=== PATIENT | female | born 1965 | race American Indian/Alaskan Native ===

== ENCOUNTER 2016-09-13 09:51 | Inpatient (IN) | payer BC, OTHER ==
[2016-09-13 10:15] VITALS: BMI 29.2
[2016-09-13] MEDS ORDERED: Labetalol 5 mg/ml Inj 20ML IV STA ×2 (10:29→11:02)
--- NOTE | 2016-09-13 10:33 | ED PDOC ---
Arrival/HPI - General Chief Complaint: GI Problem Time Seen by Provider: 09/13/16 10:19 Historian: Patient - History of Present Illness Narrative History of Present Illness (Text): 09/13/16 10:32 A 51 year old female, whose past medical history includes hypertension, presents to the emergency department complaining of multiple episodes of non- bilious non-bloody vomiting for one week. Patient notes dyspnea on exertion and blurry vision for few days. Patient reports she started feeling midsternal chest pain on route to emergency room. Patient denies any fever, diarrhea, abdominal pain or any other complaints. Patient reports she has not been compliant with her medication for 1 year. PMD: Dr. Galeana Time/Duration: 1 week Symptom Course: Unchanged Quality: Other Context: Other Past Medical History - Provider Review Nursing Documentation Reviewed: Yes - Infectious Disease Hx of Infectious Diseases: None - Cardiac Hx Hypertension: Yes - HEENT Hx Blind: Yes Hx Cataracts: Yes - Musculoskeletal/Rheumatological Hx Falls: No - Psychiatric Hx Substance Use: Yes - Surgical History Hx Section: Yes Hx Eye Surgery: Yes - Anesthesia Hx Anesthesia Reactions: No Hx Malignant Hyperthermia: No - Suicidal Assessment Feels Threatened In Home Enviroment: No Family/Social History - Physician Review Nursing Documentation Reviewed: Yes Family/Social History: No Known Family HX Smoking Status: Former Smoker Hx Alcohol Use: Yes Hx Substance Use: Yes Hx Substance Use Treatment: No Allergies/Home Meds Allergies/Adverse Reactions: Allergies No Known Allergies Allergy (Verified 12/09/11 17:22) Home Medications: Home Meds Medication Instructions Recorded Confirmed Bisoprolol Fumarate/Hydrochl 1 tab PO DAILY 01/31/12 09/13/16 [Bisoprolol/Hctz 10 mg-6.25 mg] Olmesartan Medoxomil [Benicar] 40 mg PO DAILY 01/31/12 09/13/16 Spironolactone 25 mg PO BID 02/02/12 09/13/16 Review of Systems - Physician Review All systems were reviewed & negative as marked: Yes - Review of Systems Constitutional: absent: Fevers Eyes: Vision Changes (Blurry vision) Respiratory: Other (CARY) Cardiovascular: Chest Pain Gastrointestinal: Vomiting. absent: Abdominal Pain, Diarrhea Physical Exam Vital Signs Reviewed: Yes Vital Signs Temp Pulse Resp BP Pulse Ox 09/13/16 13:33 69 170/92 H 09/13/16 13:05 70 16 154/83 H 98 09/13/16 11:22 57 L 219/140 H 09/13/16 11:13 61 241/128 H 09/13/16 10:55 63 18 241/128 H 99 09/13/16 10:45 63 300/160 H 09/13/16 09:51 98 F 83 18 215/187 H 97 Temperature: Afebrile Blood Pressure: Hypertensive Pulse: Regular Respiratory Rate: Normal Appearance: Positive for: Well-Appearing, Non-Toxic, Comfortable Pain Distress: None Mental Status: Positive for: Alert and Oriented X 3 - Systems Exam Head: Present: Atraumatic, Normocephalic Pupils: Present: PERRL Extroacular Muscles: Present: EOMI Conjunctiva: Present: Normal Mouth: Present: Moist Mucous Membranes Neck: Present: Normal Range of Motion Respiratory/Chest: Present: Clear to Auscultation, Good Air Exchange, Tender to Palpation (Tenderness to chest wall). No: Respiratory Distress, Accessory Muscle Use Cardiovascular: Present: Regular Rate and Rhythm, Normal S1, S2. No: Murmurs Abdomen: Present: Normal Bowel Sounds. No: Tenderness, Distention, Peritoneal Signs Back: Present: Normal Inspection Upper Extremity: Present: Normal Inspection. No: Cyanosis, Edema Lower Extremity: Present: Normal Inspection, NORMAL PULSES. No: Edema, CALF TENDERNESS Neurological: Present: GCS=15, CN II-XII Intact, Speech Normal Skin: Present: Warm, Dry, Normal Color. No: Rashes Psychiatric: Present: Alert, Oriented x 3, Normal Insight, Normal Concentration Medical Decision Making ED Course and Treatment: 09/13/16 10:32 Impression: A 51 year old female with vomiting, CARY, blurry vision and midsternal chest pain. Patient has a history of hypertension and has not been compliant with medication for 1 year Differential Diagnosis included but are not limited to: ACS vs. Hypertensive emergency Plan: -- Head CT -- Chest xray -- EKG -- Labs -- Urinalysis -- Labetalol -- Reassess and disposition Progress Notes: EKG shows NSR at 83 BPM with LVH, no ST-segment elevations. Interpreted by me. Report Date : 09/13/2016 12:28:35 Procedure: Chest xray Dictator : Moreno Tejada MD IMPRESSION: No active disease. Report Date : 09/13/2016 12:45:24 PROCEDURE: CT HEAD WITHOUT CONTRAST. Dictator : Moreno Tejada MD IMPRESSION: Extensive hypodensity in the periventricular white matter, sheyla and cerebellar white matter. Findings could represent vasogenic edema related to hypertension or could represent chronic microvascular disease. Follow-up MRI is recommended 09/13/16 13:00 Patient treated with Labetolol IV x 2 without improvement on BP. Then started on a Cardene drip with good improvement of blood pressure. Patient has a ESTEFANI and elevated troponin. Currently patient does not have any chest pain. Case discussed with Dr. Myers, who agrees and accepts patient admission. Aspirin ordered by admitting team. Consult with heddler tier Dr. Daniel placed by Dr. Myers. Also consult was placed for Dr. Bae Opthamologist and Dr. Mcgarry for ESTEFANI. Patient's PMD Dr. Galeana admits to hospitalist. Hospitalist paged. Case discussed with Dr. Perez, hospitalist, who accepts patient to ICU. - Critical Care Critical Care Minutes: 60 minutes - Lab Interpretations Lab Results: 09/13/16 10:30 09/13/16 10:30 Lab Results 09/13/16 10:30: WBC 12.3 H, RBC 4.15, Hgb 12.5, Hct 34.0 L, MCV 81.9, MCH 30.1, MCHC 36.8, RDW 18.2 H, Plt Count 143, Gran % 83.5 H, Lymph % (Auto) 9.7 L, [place] % (Auto) 6.5 H, Eos % (Auto) 0.1 L, Baso % (Auto) 0.2, Gran # 10.26 H, Lymph # 1.2, [place] # 0.8 H, Eos # 0.0, Baso # 0.02, PT 10.7, INR 0.99, APTT 26.4, Sodium 132, Potassium 2.4 L*, Chloride 86 L, Carbon Dioxide 31, Anion Gap 17, BUN 57 H , Creatinine 3.3 H, Est GFR ( Amer) 18, Est GFR (Non-Af Amer) 15, Random Glucose 130 H, Calcium 9.9, Magnesium 1.9, Total Bilirubin 1.3, AST 36, ALT 18, Alkaline Phosphatase 71, Lactate Dehydrogenase 1517 H, Total Creatine Kinase 106 , Troponin I 0.20 H*, NT-Pro-B Natriuret Pep 91212 H, Total Protein 8.9 H, Albumin 4.5, Globulin 4.3, Albumin/Globulin Ratio 1.0 L I have reviewed the lab results: Yes - RAD Interpretation Radiology Orders: 09/13/16 10:28 CHEST PORTABLE [RAD] Stat 09/13/16 10:29 HEAD W/O CONTRAST [CT] Stat - Medication Orders Current Medication Orders: Amlodipine Besylate (Norvasc) 5 mg PO DAILY ANNA Aspirin (Ecotrin) 81 mg PO DAILY ANNA Nicardipine HCl (Cardene Iv Premix) 200 mls @ 50 mls/hr IV .Q4H PRN; Protocol; 5 MG/HR PRN Reason: TITRATE PER MD ORDER Last Titration: 09/13/16 14:47 Dose: 10 MG/HR Titration Intervention Document 09/13/16 14:47 [id number] (Rec: 09/13/16 14:47 [id number]) Titration Dosing Titration Dose 10 IV Rate 100 Intake/Decrease Increase Potassium Chloride 20 meq/ (Sodium Chloride) 1,010 mls @ 100 mls/hr IV .Q10H6M ANNA Last Admin: 09/13/16 15:18 Dose: 100 MLS/HR eMAR Start Stop Document 09/13/16 15:18 [id number] (Rec: 09/13/16 15:18 [id number]) Intravenous Solution Start Date 09/13/16 Start Time 15:18 Ondansetron HCl (Zofran Inj) 4 mg IVP Q6H PRN PRN Reason: Nausea/Vomiting Pantoprazole Sodium (Protonix Inj) 40 mg IVP DAILY ANNA Discontinued Medications Amlodipine Besylate (Norvasc) 5 mg PO DAILY ANNA Amlodipine Besylate (Norvasc) 5 mg PO .EXTRA DOSE ONE Stop: 09/13/16 12:31 Last Admin: 09/13/16 13:33 Dose: 5 MG MAR Pulse and Blood Pressure Document 09/13/16 13:33 HI (Rec: 09/13/16 13:43 HI [id number]) Pulse Pulse Rate (60-90) 69 Blood Pressure Blood Pressure (100/60-150/90) 170/92 Apraclonidine HCl (Iopidine) Confirm Administered Dose 1 ml .ROUTE .STK-MED ONE Stop: 09/13/16 14:26 Last Admin: 09/13/16 15:13 Dose: Fluorescein Sodium/Benoxinate HCl (Fluress 0.4%-0.25% Opht) Confirm Administered Dose 5 ml .ROUTE .STK-MED ONE Stop: 09/13/16 14:27 Last Admin: 09/13/16 15:12 Dose: Hydroxypropyl Methylcellulose (Gonak 2.5% Opht) Confirm Administered Dose 15 ml .ROUTE .STK-MED ONE Stop: 09/13/16 14:26 Last Admin: 09/13/16 15:13 Dose: Potassium Chloride (Potassium Chloride 10 Meq/100 Ml) 100 mls @ 100 mls/hr IVPB ONCE ONE Stop: 09/13/16 12:36 Last Admin: 09/13/16 13:42 Dose: 100 MLS/HR eMAR Start Stop Document 09/13/16 13:42 HI (Rec: 09/13/16 13:43 HI [id number]) Intravenous Solution Start Date 09/13/16 Start Time 13:33 Labetalol HCl (Trandate) 20 mg IV STAT STA Stop: 09/13/16 10:30 Last Admin: 09/13/16 10:45 Dose: 20 MG MAR Pulse and Blood Pressure Document 09/13/16 10:45 SRE (Rec: 09/13/16 10:58 SRE [facility] [id number]) Pulse Pulse Rate (60-90) 63 Blood Pressure Blood Pressure (100/60-150/90) 300/160 eMAR Start Stop Document 09/13/16 10:45 SRE (Rec: 09/13/16 10:58 SRE [facility] [id number]) Intravenous Solution Start Date 09/13/16 Start Time 10:45 End Date 09/13/16 End time 10:46 Total Infusion Time 1 Labetalol HCl (Trandate) 40 mg IV STAT STA Stop: 09/13/16 11:03 Last Admin: 09/13/16 11:13 Dose: 40 MG MAR Pulse and Blood Pressure Document 09/13/16 11:13 SRE (Rec: 09/13/16 11:14 SRE [facility] [id number]) Pulse Pulse Rate (60-90) 61 Blood Pressure Blood Pressure (100/60-150/90) 241/128 eMAR Start Stop Document 09/13/16 11:13 SRE (Rec: 09/13/16 11:14 SRE [facility] [id number]) Intravenous Solution Start Date 09/13/16 Start Time 11:13 End Date 09/13/16 End time 11:14 Total Infusion Time 1 Ondansetron HCl (Zofran Inj) Confirm Administered Dose 4 mg .ROUTE .STK-MED ONE Stop: 09/13/16 11:30 Last Admin: 09/13/16 11:33 Dose: 4 MG Phenylephrine HCl (Phenylephrine Opht 10% Soln) 0 ml OU STAT STA Stop: 09/13/16 14:20 Last Admin: 09/13/16 14:34 Dose: 1 DROP Phenylephrine HCl (Phenylephrine Opht 10% Soln) 0 ml OU Q1M ANNA Stop: 09/13/16 14:48 Last Admin: 09/13/16 14:47 Dose: 1 DROP Potassium Chloride (K-Dur 20 Meq Er Tab) 40 meq PO STAT STA Stop: 09/13/16 11:38 Last Admin: 09/13/16 12:00 Dose: 40 MEQ Prednisolone Acetate (Pred Forte 1% Opht Susp) Confirm Administered Dose 5 ml .ROUTE .STK-MED ONE Stop: 09/13/16 14:26 Last Admin: 09/13/16 15:17 Dose: Tetracaine HCl (Tetracaine 0.5% Ophth Soln) Confirm Administered Dose 2 drop .ROUTE .STK-MED ONE Stop: 09/13/16 14:25 Last Admin: 09/13/16 15:17 Dose: Tropicamide (Mydriacyl 1% Opht Soln) 1 drop OU STAT STA Stop: 09/13/16 14:17 Last Admin: 09/13/16 15:13 Dose: Tropicamide (Mydriacyl 1% Opht Soln) Confirm Administered Dose 30 drop .ROUTE .STK-MED ONE Stop: 09/13/16 14:26 Last Admin: 09/13/16 14:36 Dose: 1 DROP Tropicamide (Mydriacyl 1% Opht Soln) 1 drop OU Q1M ANNA Stop: 09/13/16 14:48 Last Admin: 09/13/16 14:47 Dose: 1 DROP - Scribe Statement The provider has reviewed the documentation as recorded by the Scribe Patricia Zuletavez Provider Scribe Attestation: All medical record entries made by the Ranjith were at my direction and personally dictated by me. I have reviewed the chart and agree that the record accurately reflects my personal performance of the history, physical exam, medical decision making, and the department course for this patient. I have also personally directed, reviewed, and agree with the discharge instructions and disposition. Disposition/Present on Arrival - Present on Arrival Any Indicators Present on Arrival: No History of DVT/PE: No History of Uncontrolled Diabetes: No Urinary Catheter: No History of Decub. Ulcer: No History Surgical Site Infection Following: None - Disposition Have Diagnosis and Disposition been Completed?: Yes Diagnosis: Hypertensive emergency, Acute kidney injury Disposition: HOSPITALIZED Disposition Time: 13:00 Patient Plan: Admission Condition: CRITICAL
[2016-09-13 10:41] LABS: ADD MANUAL DIFF? NO
[2016-09-13 10:43] LABS: BASO # 0.02 K/mm3 (0.0-2.0); BASO % 0.2 % (0.0-3.0); EOS % 0.1 % (1.5-5.0); GRAN # 10.26 (1.4-6.5); GRAN % 83.5 % (50.0-68.0); LYMPH # 1.2 (1.2-3.4); LYMPH % 9.7 % (22.0-35.0); MEAN CELL VOLUME 81.9 fL (80.0-105.0); MEAN CORPUSCULAR HEMOGLOBIN 30.1 pg (25.0-35.0); MEAN CORPUSCULAR HGB CONC 36.8 g/dl (31.0-37.0); MONO # 0.8 (0.1-0.6); MONO % 6.5 % (1.0-6.0); PLATELET COUNT 143 10^3/uL (120.0-450.0); RED CELL DISTRIBUTION WIDTH 18.2 % (11.5-14.5); WHITE BLOOD COUNT 12.3 10^3/ul (4.5-11.0)
[2016-09-13 10:54] LABS: BILIRUBIN,TOTAL 1.3 mg/dL (0.2-1.3); CALCIUM 9.9 mg/dL (8.4-10.5); INR 0.99 (0.93-1.08); MAGNESIUM 1.9 mg/dL (1.7-2.2); PARTIAL THROMBOPLASTIN TIME 26.4 Seconds (23.7-30.8); TOTAL PROTEIN 8.9 g/dL (5.8-8.3)
[2016-09-13 10:58] LABS: POTASSIUM 2.4 mmol/L (3.6-5.0)
[2016-09-13] MEDS ORDERED: diltiaZEM IVPB 100mg in NS 100 ML IV PRN (11:08)
[2016-09-13] MEDS: Nicardipine 20 MG/200 ML 200 ML IV PRN ×3 (11:33→17:45)
[2016-09-13] MEDS ORDERED: Potassium Chloride 10 mEq 100 ML IVPB ONE (11:37)
[2016-09-13] MEDS ORDERED: Potassium Chloride 20 mEq ER Tab PO STA (11:37)
[2016-09-13 11:47] LABS: TROPONIN I 0.2 ng/mL
--- NOTE | 2016-09-13 12:30 | RAD ---
HISTORY: chest pain COMPARISON: No prior. FINDINGS: LUNGS: No active pulmonary disease. PLEURA: No significant pleural effusion identified, no pneumothorax apparent. CARDIOVASCULAR: Mild cardiomegaly OSSEOUS STRUCTURES: No significant abnormalities. VISUALIZED UPPER ABDOMEN: Normal. OTHER FINDINGS: None. IMPRESSION: No active disease.
--- NOTE | 2016-09-13 12:47 | CT ---
PROCEDURE: CT HEAD WITHOUT CONTRAST. HISTORY: blurry vision x 2 day, hypertensive COMPARISON: None available. TECHNIQUE: Axial computed tomography images were obtained through the head/brain without intravenous contrast. Radiation dose: Total exam DLP = 629 mGy-cm. FINDINGS: HEMORRHAGE: No intracranial hemorrhage. BRAIN: No mass effect or edema. The periventricular white matter shows a large amount of hypodensity. This can also be seen in the sheyla in the cerebellum. This could represent chronic microvascular disease. However this extensive disease would be unusual in this age group. It is also possible that this represents vasogenic edema in a severely hypertensive patient. Clinical correlation is suggested. Followup MRI would be helpful for further evaluation VENTRICLES: Unremarkable. No hydrocephalus. CALVARIUM: Unremarkable. PARANASAL SINUSES: Unremarkable as visualized. No significant inflammatory changes. MASTOID AIR CELLS: Unremarkable as visualized. No inflammatory changes. OTHER FINDINGS: None. IMPRESSION: Extensive hypodensity in the periventricular white matter, sheyla and cerebellar white matter. Findings could represent vasogenic edema related to hypertension or could represent chronic microvascular disease. Follow-up MRI is recommended
--- NOTE | 2016-09-13 12:54 | CT ---
PROCEDURE: CT Abdomen and Pelvis without intravenous contrast HISTORY: adrenal hyperplasia COMPARISON: None. TECHNIQUE: Without contrast. Contrast Dose: Radiation dose: Total exam DLP = 471 mGy-cm. FINDINGS: LOWER THORAX: Unremarkable. LIVER: Unremarkable. No gross lesion or ductal dilatation. GALLBLADDER AND BILE DUCTS: Unremarkable. PANCREAS: Unremarkable. No gross lesion or ductal dilatation. SPLEEN: Unremarkable. ADRENALS: Unremarkable. No mass. KIDNEYS AND URETERS: Unremarkable. No hydronephrosis. No solid mass. VASCULATURE: Unremarkable. No aortic aneurysm. BOWEL: Unremarkable. No obstruction. No gross mural thickening. APPENDIX: Unremarkable. Normal appendix. PERITONEUM: Unremarkable. No free fluid. No free air. LYMPH NODES: Unremarkable. No enlarged lymph nodes. BLADDER: Unremarkable. REPRODUCTIVE: There is a 4 x 5 cm right ovarian cyst. There is no fluid in the cul-de-sac to suggest cyst rupture. BONES: No acute fracture. OTHER FINDINGS: None. IMPRESSION: No evidence of adrenal mass or hyperplasia. Right-sided ovarian cyst. No fluid in the cul-de-sac to suggest recent rupture.
--- NOTE | 2016-09-13 13:14 | CP.PCM.HP ---
<Luciano Mustafa - Last Filed: 09/13/16 15:00> History of Present Illness - History of Present Illness History of Present Illness: CC: Chest pain, SOB, dizziness/lightheadedness 51 F with PMH of HTN, sickle cell trait, Glaucoma presented to [facility] [place] complaint of Chest pain, SOB, dizziness/lightheadedness. Patient stated that she has been having this symptoms for about 4 weeks now. She stated that she has never had these symptoms before and they have been getting progressively worse. She rated chest pain as 9/10 in severity. She described the pain as constant, sharp, and stabbing over the left sternal border without radiation. She denied any Left jaw/arm pain and numbness/tingling associated with it but admitted to SOB. Nothing alleviates or exacerbates her pain. For the last 2 weeks, patient also has had nausea/vomiting. Every time she attempts to eat she vomits. She reported that she has vomited at least 3 times per day during this time period. Eating exacerbates nausea/vomiting while nothing makes it better. Patient sleeps with 2 pillows and can only walk 1 flight of stairs before becoming short of breath. Last echo is unknown. Patient has been noncomplaint with medications and has not seen PMD in over 2 years. Admits headache, vertigo , loss of vision in left eye, fever/chills, palpitation. Denies weakness, syncope, diarrhea, sick contacts, recent illness, constipation, incontinence, numbness/tingling. PMD: Dr. Evita Figueredo ([place]) PMH: HTN, sickle cell trait, Glaucoma, cataract Meds: Denied Allergy: NKDA PSH: x 4, Cataract surgery, D&C Hosp: 4 years ago for HTN FH: Mother ND/DM, Sister ND Social: lives with family, smokes 1 pack/week for 30 years, former everyday drinker - quit 3 weeks ago, occasional marijuana use Present on Admission - Present on Admission Any Indicators Present on Admission: No History of DVT/PE: No History of Uncontrolled Diabetes: No Urinary Catheter: No Decubitus Ulcer Present: No Review of Systems - Review of Systems All systems: reviewed and no additional remarkable complaints except (as per HPI ) Past Patient History - Infectious Disease Hx of Infectious Diseases: None - Past Social History Smoking Status: Former Smoker - CARDIAC Hx Hypertension: Yes - HEENT Hx Blind: Yes Hx Cataracts: Yes - MUSCULOSKELETAL/RHEUMATOLOGICAL Hx Falls: No - PSYCHIATRIC Hx Substance Use: Yes - SURGICAL HISTORY Hx Section: Yes Hx Eye Surgery: Yes - ANESTHESIA Hx Anesthesia Reactions: No Hx Malignant Hyperthermia: No Meds Allergies/Adverse Reactions: Allergies Allergy/AdvReac Type Severity Reaction Status Date / Time No Known Allergies Allergy Verified 12/09/11 17:22 Physical Exam - Constitutional Appears: No Acute Distress - Head Exam Head Exam: ATRAUMATIC, NORMOCEPHALIC - Eye Exam Eye Exam: EOMI Additional comments: loss of vision in left eye - ENT Exam ENT Exam: Mucous Membranes Moist - Respiratory Exam Respiratory Exam: Clear to Auscultation Bilateral, NORMAL BREATHING PATTERN - Cardiovascular Exam Cardiovascular Exam: REGULAR RHYTHM, +S1, +S2 - GI/Abdominal Exam GI & Abdominal Exam: Normal Bowel Sounds, Soft. absent: Distended, Guarding, Rebound, Tenderness - Extremities Exam Extremities exam: Positive for: normal capillary refill, pedal pulses present. Negative for: calf tenderness - Back Exam Back exam: absent: CVA tenderness (L), CVA tenderness (R) - Neurological Exam Neurological exam: Alert, CN II-XII Intact, Oriented x3 - Psychiatric Exam Psychiatric exam: Normal Affect, Normal Mood - Skin Skin Exam: Dry, Intact, Normal Color, Warm Results - Vital Signs Recent Vital Signs: Last Vital Signs Temp 98 F 09/13/16 09:51 Pulse 70 09/13/16 13:05 Resp 16 09/13/16 13:05 BP 154/83 H 09/13/16 13:05 Pulse Ox 98 09/13/16 13:05 - Labs Result Diagrams: 09/13/16 10:30 09/13/16 10:30 Assessment & Plan - Assessment and Plan (Free Text) Assessment: 51 F with PMH of HTN, sickle cell trait, Glaucoma presented to [facility] for complaint of Chest pain, SOB, dizziness/lightheadedness Plan: 1. Hypertensive Emergency Admit to ICU EKG NPO ECHO Carotid duplex ASA 81 mg PO daily Norvasc 5 mg PO daily Nicardipine drip Nephro consult, Dr. Mcgarry, help appreciated Opthlamology consult, Dr. Bae, help appreciated Cardio consult, Dr. Carson, help appreciated f/u daily labs 2. Chest Pain Admit to ICU EKG NPO ECHO Carotid duplex ASA 81 mg PO daily Norvasc 5 mg PO daily Nicardipine drip Nephro consult, Dr. Mcgarry, help appreciated Opthlamology consult, Dr. Bae, help appreciated Cardio consult, Dr. Carson, help appreciated f/u Cardiac enzymes x 2 - 1st one elevated 0.20 f/u daily labs BNP 54056 3. ESTEFANI Bun/Cr: 57/3.3 NS with KCL 20 mEq 100 cc/hr UA 4. Dyspnea EKG NPO ECHO Carotid duplex ASA 81 mg PO daily Norvasc 5 mg PO daily Nicardipine drip Nephro consult, Dr. Mcgarry, help appreciated Opthlamology consult, Dr. Bae, help appreciated Cardio consult, Dr. Carson, help appreciated f/u Cardiac enzymes x 2 - 1st one elevated 0.20 f/u daily labs BNP 13607 5. Hypokalemia k+ 2.4 Potassium chloride 40 mEq PO x 1 NS with KCL 20 mEq 100 cc/hr 6. Glaucoma Tropicamide 1% 1 drop OU Discussed with Dr. Stephen Mustafa, PGY-1 <Patsy Mitchell - Last Filed: 09/13/16 18:03> Results - Vital Signs Recent Vital Signs: Last Vital Signs Temp 98 F 09/13/16 16:18 Pulse 68 09/13/16 16:00 Resp 20 09/13/16 15:30 BP 143/79 09/13/16 16:00 Pulse Ox 96 09/13/16 16:00 - Labs Result Diagrams: 09/13/16 10:30 09/13/16 10:30 Attending/Attestation - Attestation I have personally seen and examined this patient.: Yes I have fully participated in the care of the patient.: Yes I have reviewed all pertinent clinical information: Yes Notes (Text): I have seen and examined the patient with the resident. Briefly this is 51 year old female with history of HTN, non compliant with medications, sickle cell trait, glaucoma, marijuana use, former alcohol abuser, OTC motrin use for headache on regular basis who presented with hypertensive emergency (headache, blurry vision of left eye, chest pain, CARY, vomiting and found to have dehydration, hyponatremia, hypokalemia, elevated troponin and acute kidney injury. Abd pelvis CT ruled out aortic dissection. Bladder scan showed only 150 cc of urine. Will start IVF. Patient has elevated wbc. Will order for cultures and procal. Will order for UA, UDS and urine lytes. Will order echo, serial cardiac iso , ekg and cardiology consult. Patient is on nicardipine drip. Currently BP is 150/90. Will not treat this reading aggressively. Workup for secondary causes of HTN ordered. Awaiting official nephro and opthal recommendations. CT head showed vasogenic edema vs white matter changes. MRI brain ordered. Discussed case with seafood preparer. Dr Patsy Mitchell
--- NOTE | 2016-09-13 13:44 | CP.PCM.CON ---
<Madelyn Raya - Last Filed: 09/13/16 14:22> History of Present Illness - History of Present Illness History of Present Illness: Consult for ICU A 51 year old female, whose past medical history includes hypertension, presents to the emergency department complaining of multiple episodes of non- bilious non-bloody vomiting for one week. Patient reports dyspnea on exertion and blurry vision for few days. Patient reports she started feeling midsternal chest pain on route to emergency room. Pt reports dysuria for a day/dizziness/NEIL /palpitation. Patient denies any fever, diarrhea, abdominal pain or any other complaints. Patient reports she has not been compliant with her medication for 1 year. Pt blood pressure ranging from 150-300 systolic recorded in the ED. Cardene drip initiated. Pt had came to ED in the past for HTN and has history of leaving AMA. Pt is a smoker, drinks daily. Potassium found to be 2.4. Trop was elevated at 0.2, Cr was 3.3, BNP was 40k PMH: HTN non compliant PSH: SS: smoker, drinker, denies drugs use Review of Systems - Constitutional Constitutional: Headache. absent: Anorexia, Chills, Fatigue, Fever - EENT Eyes: Blurred Vision, Change in Vision Ears: absent: Decreased Hearing, Ear Discharge, Tinnitus, Dizziness Nose/Mouth/Throat: absent: Nasal Congestion, Nasal Discharge - Cardiovascular Cardiovascular: Chest Pain. absent: Chest Pain at Rest - Respiratory Respiratory: absent: Cough, Dyspnea, Hemoptysis, Wheezing - Gastrointestinal Gastrointestinal: Nausea, Vomiting. absent: Abdominal Pain, Belching, Bloating , Diarrhea, Dyspepsia, Dysphagia, Loose Stools - Genitourinary Genitourinary: Difficulty Urinating Past Patient History - Infectious Disease Hx of Infectious Diseases: None - Past Social History Smoking Status: Former Smoker - CARDIAC Hx Hypertension: Yes - HEENT Hx Blind: Yes Hx Cataracts: Yes - MUSCULOSKELETAL/RHEUMATOLOGICAL Hx Falls: No - PSYCHIATRIC Hx Substance Use: Yes - SURGICAL HISTORY Hx Section: Yes Hx Eye Surgery: Yes - ANESTHESIA Hx Anesthesia Reactions: No Hx Malignant Hyperthermia: No Meds Allergies/Adverse Reactions: Allergies Allergy/AdvReac Type Severity Reaction Status Date / Time No Known Allergies Allergy Verified 12/09/11 17:22 - Medications Medications: Current Medications Amlodipine Besylate (Norvasc) 5 mg PO DAILY [facility] Nicardipine HCl (Cardene Iv Premix) 200 mls @ 50 mls/hr IV .Q4H PRN; Protocol; 5 MG/HR PRN Reason: TITRATE PER MD ORDER Last Admin: 09/13/16 11:33 Dose: 50 mls/hr Potassium Chloride 20 meq/ (Sodium Chloride) 1,010 mls @ 100 mls/hr IV .Q10H6M [facility] Physical Exam - Constitutional Appears: No Acute Distress - Head Exam Head Exam: ATRAUMATIC, NORMAL INSPECTION, NORMOCEPHALIC - Eye Exam Eye Exam: EOMI, PERRL Pupil Exam: PERRL - ENT Exam ENT Exam: Mucous Membranes Moist, Normal Exam - Neck Exam Neck exam: Positive for: Normal Inspection - Respiratory Exam Respiratory Exam: NORMAL BREATHING PATTERN. absent: Accessory Muscle Use, Respiratory Distress - Cardiovascular Exam Cardiovascular Exam: REGULAR RHYTHM, +S1, +S2 - GI/Abdominal Exam GI & Abdominal Exam: Soft. absent: Distended, Firm, Guarding, Hernia - Extremities Exam Extremities exam: Positive for: normal inspection - Back Exam Back exam: NORMAL INSPECTION - Neurological Exam Neurological exam: Alert, CN II-XII Intact, Normal Gait, Oriented x3, Reflexes Normal - Psychiatric Exam Psychiatric exam: Normal Affect, Normal Mood - Skin Skin Exam: Dry, Intact, Normal Color, Warm Results - Vital Signs Recent Vital Signs: Last Vital Signs Temp 98 F 09/13/16 09:51 Pulse 70 09/13/16 13:05 Resp 16 09/13/16 13:05 BP 154/83 H 09/13/16 13:05 Pulse Ox 98 09/13/16 13:05 - Labs Result Diagrams: 09/13/16 10:30 09/13/16 10:30 Assessment & Plan - Assessment and Plan (Free Text) Assessment: 51 Female with PMH of uncontrolled HTN Hypertensive urgency: BP 150-300 systolic NSTEMI: trop 0.2 ESTEFANI: Cr.3.3 Neuro: AAO x3, retinal detachment CT: diffuse edema -Opthalmologist consult : Tropicamide, Phenylephrine opthalic solution -monitor neuro function CV: Hypertensive urgency , Hypokalemia 2.4 -f/u Echo -EKG: NSR -Cardene drip -NS KCL 20meq at 100/hr -Monitor VS -Maintain MAP 65+ -Norvasc -f/u metanephrine Pulm -Keep saO2 90%+ -NC O2 PRN -CXR: no active disease GI -PTX -NPO -Zofran Renal: ESTEFANI Cr 3.3 -Nephro consult -Keep euvolemia -Monitor I/O ID : Leukocytosis 12.3, Afebrile -Keep normothermia DVT: SCD, Sub Q H Will DW ICU attending <Rafi Myers - Last Filed: 09/13/16 17:19> Meds - Medications Medications: Current Medications Amlodipine Besylate (Norvasc) 5 mg PO DAILY [facility] Aspirin (Ecotrin) 81 mg PO DAILY [facility] Nicardipine HCl (Cardene Iv Premix) 200 mls @ 50 mls/hr IV .Q4H PRN; Protocol; 5 MG/HR PRN Reason: TITRATE PER MD ORDER Last Admin: 09/13/16 15:49 Dose: 100 mls/hr Potassium Chloride 20 meq/ (Sodium Chloride) 1,010 mls @ 100 mls/hr IV .Q10H6M [facility] Last Admin: 09/13/16 15:18 Dose: 100 mls/hr Ondansetron HCl (Zofran Inj) 4 mg IVP Q6H PRN PRN Reason: Nausea/Vomiting Pantoprazole Sodium (Protonix Inj) 40 mg IVP DAILY [facility] Results - Vital Signs Recent Vital Signs: Last Vital Signs Temp 98 F 09/13/16 16:18 Pulse 68 09/13/16 16:00 Resp 20 09/13/16 15:30 BP 143/79 09/13/16 16:00 Pulse Ox 96 09/13/16 16:00 - Labs Result Diagrams: 09/13/16 10:30 09/13/16 10:30 Addendum Addendum: 09/13/16 17:[address] Myers note
[2016-09-13] MEDS ORDERED: Tropicamide 1% Opht SOLUTION OU STA (14:16)
[2016-09-13] MEDS ORDERED: Phenylephrine 10% Opht (5 ml) OU STA (14:19)
[2016-09-13] MEDS ORDERED: Tetracaine 0.5% Ophth 2 ML BOTTLE ONE (14:24)
[2016-09-13] MEDS ORDERED: APRACLONIDINE 0.5% ONE (14:25)
[2016-09-13] MEDS ORDERED: HYPROMELLOSE 2.5% ONE (14:25)
[2016-09-13] MEDS ORDERED: Tropicamide 1% Opht SOLUTION ONE (14:25)
[2016-09-13] MEDS ORDERED: PrednisoLONE 1% Opht Susp(5 ml) ONE (14:25)
[2016-09-13] MEDS ORDERED: FLUORESCEIN ONE (14:26)
[2016-09-13] MEDS: Tropicamide 1% Opht SOLUTION OU SCH ×3 (14:45→14:47)
[2016-09-13] MEDS: Phenylephrine 10% Opht (5 ml) OU SCH ×3 (14:45→14:47)
[2016-09-13] MEDS ORDERED: Dextrose 5%/0.45% NS 1,000 ML IV SCH (14:45)
--- NOTE | 2016-09-13 14:56 | CARD ---
APPROVED REPORT EXAM: Two-dimensional and M-mode echocardiogram with Doppler and color Doppler. INDICATION Non STEMI DIASTOLIC DYSFUNCTION 2D DIMENSIONS Left Atrium (2D)4.3 (1.6-4.0cm)IVSd1.0 (0.7-1.1cm) LVDd5.6 (3.9-5.9cm)PWd1.5 (0.7-1.1cm) M-Mode DIMENSIONS Aortic Root2.80 (2.2-3.7cm)Aortic Cusp Exc.1.70 (1.5-2.0cm) Aortic Valve AoV Peak Qjwpzxww120.0cm/Pretty Peak GR.12mmHg Mitral Valve MV E Kzycziex15.3cm/sMV A Pjpmedvv99.9cm/sE/A ratio1.1 TDI E/Lateral E'0.0E/Medial E'0.0 Tricuspid Valve TR Peak Pyfrupdm648er/sRAP [id number] Peak Gr.23mmHg [id number] LEFT VENTRICLE The left ventricle is normal size. There is mild concentric left ventricular hypertrophy. The systolic function is mild to moderately impaired.EF-35-40% There is mild to moderate hypokinesis in the apical anterior wall. The left ventricular diastolic function is normal. No left ventricle thrombus noted on this study. There is no ventricular septal defect visualized. There is no left ventricular aneurysm. There is no mass noted in the left ventricle. RIGHT VENTRICLE The right ventricle is normal size. There is normal right ventricular wall thickness. The right ventricular systolic function is normal. ATRIA The left atrium size is normal. The right atrium size is normal. The interatrial septum is intact with no evidence for an atrial septal defect. AORTIC VALVE The aortic valve is thickened but opens well. There is trace aortic regurgitation. There is no aortic valvular stenosis. There is no aortic valvular vegetation. MITRAL VALVE The mitral valve is thickened but opens well. Mitral regurgitation is mild. There is no mitral valve stenosis. There is no evidence of mitral valve prolapse. TRICUSPID VALVE The tricuspid valve leaflets are thickened , but open well. There is mild tricuspid regurgitation.RVSP-32 mmofHG. There is no tricuspid valve stenosis. There is no tricuspid valve prolapse or vegetation. PULMONIC VALVE The pulmonary valve is normal in structure. There is trace pulmonic valvular regurgitation. There is no pulmonic valvular stenosis. GREAT VESSELS The aortic root is normal in size. The ascending aorta is normal in size. The pulmonary artery is normal. The IVC is normal in size and collapses >50% with inspiration. PERICARDIAL EFFUSION There is no pleural effusion. There is no pericardial effusion. <Conclusion> The left ventricle is normal size. There is mild concentric left ventricular hypertrophy. The systolic function is mild to moderately impaired.EF-35-40% There is mild to moderate hypokinesis in the apical anterior wall. There is trace aortic regurgitation. Mitral regurgitation is mild. There is mild tricuspid regurgitation.RVSP-32 mmofHG. The IVC is normal in size and collapses >50% with inspiration. There is no pericardial effusion.
--- NOTE | 2016-09-13 15:07 | CARD ---
APPROVED REPORT EKG Measurement Heart [id number] <Conclusion> Normal sinus rhythm Biatrial enlargement Left ventricular hypertrophy Nonspecific T wave abnormality Prolonged QT Abnormal ECG
--- NOTE | 2016-09-13 15:14 | CON ---
DATE: 09/13/2016 This is a 51-year-old lady with history of uncontrolled hypertension, noncompliance with antihypertensive medication, who presented with nausea and vomiting that started about 1 week ago and was getting progressively worse over the 7-day period. Blurred vision and some headaches, joined several days later. The patient describes blurred vision initially on and off in the left eye and then continuous in the left eye as well. She did not have any chest pain and no shortness of breath. She did not have any diarrhea or constipation. She did, however, have worsening of shortness of breath that joined several days after onset of the nausea and vomiting. The patient was not taking her antihypertensive medication for quite some time now. She denies any fever, abdominal pain or any other complaints. She reports poor appetite. PAST MEDICAL HISTORY: Hypertension. FAMILY HISTORY: Noncontributory. MEDICATIONS: (Prescribed but not adhered to): Include bisoprolol, spirolactone , Benicar (last recorded list from 2011). SOCIAL HISTORY: The patient is an ex-smoker. No alcohol or illicit drug abuse. ALLERGIES: NKDA. REVIEW OF SYSTEMS: Review of 12-organ system, other than mentioned in history of present illness, is negative. PHYSICAL EXAMINATION: VITAL SIGNS: Blood pressure 180/110 on 5 mg per hour of Cardene drip. Prior to that, blood pressure was 219/140. Heart rate 57, respiratory rate 18, oxygen saturation 99% on room air. HEAD AND NECK: Atraumatic. LUNGS: Clear to auscultation bilaterally. HEART: Regular rate and rhythm. S1, S2 normal. There is a holosystolic murmur. ABDOMEN: Soft, nontender, nondistended. There is no bruit auscultated. SKIN: Moist. PSYCHIATRIC: The patient is alert and oriented x 3. NEUROLOGIC: The patient moves all extremities spontaneously. MUSCULOSKELETAL: No C/C/E. LABORATORY DATA: WBC 12.3, hemoglobin 12.5, platelet count 143. Sodium 132, potassium 2.4, chloride 86, carbon dioxide 31, BUN 57, creatinine 3.3, glucose 130, AST 36, ALT 18. Troponin 0.2. ProBNP is pending. Albumin 4.5. EKG showed left ventricular hypertrophy but no clearcut ischemic changes. Chest x-ray showed no acute pulmonary disease. CAT scan of the head, abdomen and pelvis is pending. ASSESSMENT AND PLAN: This is a 51-year-old lady who presented with hypertensive emergency complicated by hypertensive encephalopathy, cardiomyopathy and acute kidney injury. She also has what appears to be metabolic alkalosis (elevated bicarb) and hypokalemia concerning for hyperaldosteronism. At present time, will proceed with Cardene drip to decrease mean arterial pressure by 20% over the first hour and then by a further 5 to 15 percent over the next 23 hours . Will get aldosterone/PRC ratio and call for nephrology consult. Because blurred vision is somewhat asymmetrical, left more than right, I called stat ophthalmology consult with Dr. Bae who is going to see her shortly. Possibility of PRES syndrome cannot be ruled out and CAT scan of the head is pending as well. Echocardiogram will be done to evaluate holosystolic murmur and rule out or in diastolic or systolic cardiac dysfunction. Because the patient does not have chest pain or overt specific ischemic changes on her EKG--->troponin leak, most likely relates to hypertensive emergency and nonacute coronary event. Once echocardiogram results are available, we are going to call cardiology for further evaluation. I will start patient on normal saline IV fluids to compensate for hypertensive autodiuresis. I will also supplement her electrolytes to maintain potassium within normal limits. Will continue to target euvolemia, euglycemia, normothermia and oxygen saturation more than 90%. Will continue with deep venous thrombosis and gastrointestinal prophylaxis. CT abdo/pelvis did not reveal adrenal hyperplasia. ccm time 40 min Rafi Myers MD cc: [id number] TT: 09/13/2016 15:14:03 Confirmation # [id number] Dictation # [id number] [address]
--- NOTE | 2016-09-13 15:56 | CON ---
DATE: 09/13/2016 CONSULTATION REQUESTED BY: Dr. Syed Perez REASON FOR CONSULTATION: Hypertensive emergency, hypokalemia, acute renal failure. HISTORY OF PRESENT ILLNESS: The patient is a patient previously unknown to me. This 51-year-old female presented to [facility]'s Emergency Department earlier today with a complaint of vomiting for approximately 1 week' s duration (nonbilious, nonbloody) accompanied by blurry vision as well as dyspnea on exertion. Additionally, she reported chest pain en route to the ED. On arrival, she was found to have a blood pressure of 215/187 with a heart rate of 83, although the blood pressure subsequently increased as high as 300/ 160. EKG revealed sinus rhythm at 83 beats per minute with left ventricular hypertrophy but there were no acute changes noted and chest x-ray did not reveal any acute pathology. Laboratory studies were notable for potassium of 2.4 and a BUN/creatinine of 57/3.3. Troponin I was elevated at 0.2. N- terminal proBNP was elevated at 38,800. LDH was elevated at 1517. Hemoglobin was within normal limits as were platelets. In speaking with the patient, she acknowledged that she has a known history of hypertension, but stated that she has not taken any antihypertensive therapy for at least 3 years "because they don't work." She states that when she visits her primary care physician, her blood pressure is at baseline 300 mmHg systolic. The only illicit drug she admitted to using was marijuana, which she was taking for glaucoma. She did admit to drinking at least 3 cans of beer per day and smoking also but denied any cocaine or amphetamine use. She also stated taking Advil as well as Aleve on a daily basis for headaches as she has been doing on an almost daily basis for many months now. Her last labs were done in 2011 "because I'm afraid of needles" and those were done here at [facility] and at that time, her creatinine had been 1.0 (in 01/2015). The patient denied any vomiting or diarrhea. As stated above, she did report headaches as well. A CT scan of the head performed in the ED (without IV contrast) revealed extensive hypodensities in the periventricular white matter, sheyla and cerebellar white matter thought to represent vasogenic edema related to her hypertension, Of note, when I saw the patient in the ICU, she was no longer complaining of any chest pain and she was on a Cardene infusion. REVIEW OF SYSTEMS: Taken across all 10 systems in 14 points and was negative unless stated otherwise above. PAST MEDICAL HISTORY: Significant for hypertension as stated above for which the patient has not taken any medications for approximately 3 years or so, as well as glaucoma for which she self-medicates with marijuana. She denied any prior history of chronic kidney disease. She has had prior section. MEDICATIONS: Medications that the patient had been taking at home and prior to admission were ibuprofen as well as Aleve on a p.r.n. basis. She was not on any antihypertensive therapy for at least 3 years. ALLERGIES: The patient denied any drug allergies. SOCIAL HISTORY: Notable for the patient drinking at least 3 cans of beer per day. She states that the longer she has gone without having a drink was the last few days or so when she has been vomiting. There is tobacco use and also regular marijuana use, but she denied any illicit drug use. FAMILY HISTORY: Significant for her mother having had type 2 diabetes mellitus as well as hypertension and end-stage renal disease for which she was on hemodialysis. PHYSICAL EXAMINATION: GENERAL APPEARANCE: I saw the patient in the intensive care unit, lying in bed supine. VITAL SIGNS: Blood pressure was now 170/92. Minimum blood pressure since presenting to the ED was 154/83 with a maximum of 300/160. Heart rate was now 69, but had ranged from 57 to 83 beats per minute with monitoring showing sinus rhonda and sinus rhythm respectively. Oral temperature is 98 degrees and the patient has been afebrile since admission. Respiratory rate is 16 and has ranged from 16-18 since admission. Oxygen saturation is 98% but has ranged from 97% to 99% since admission. I's and O's have not yet been documented. The remainder of the exam is as follows: HEENT: The patient was normocephalic and atraumatic without any sinus tenderness. NECK: Supple with a full range of motion. Trachea midline and freely movable. Thyroid was nontender nor enlarged. There was no jugular venous distention. EYES: Conjunctivae were neither pale nor icteric. CHEST: Lungs francois on my exam were grossly clear to auscultation without any rales, rhonchi or wheezing. Diaphragmatic excursion and air flow into both lungs francois was bilaterally symmetrical. CARDIAC: Had a regular rate and rhythm without any rubs or gallops. There were no heaves. There were no murmurs that I could appreciate. PMI did appear to be laterally displaced. ABDOMEN: Soft, centrally obese, but nontender, without any rebounding, guarding or rigidity. There was no hepatosplenomegaly. EXTREMITIES: Had only trace sacral edema. NEUROLOGIC: When I saw the patient, she was nonfocal, but appeared to have very poor insight into her hypertension. VASCULAR: No bruits. SKIN: Intact. GENITOURINARY: No suprapubic tenderness. LABORATORY STUDIES: As follows: White count is 12.3, H and H is 12.5/34 with a platelet count of 143. There are 84% neutrophils, 10% lymphocytes, and 7% monocytes. Coagulation studies are within normal limits. Sodium is 132, potassium is 2.4, chloride is 86, bicarbonate 31, BUN/creatinine is 57/3.3 with a glucose of 130. Total protein/albumin is 8.9/4.5, calcium is 9.9, magnesium is 1.9, AST/ALT is 36/18. Alkaline phosphatase is 71. Troponin I is 0.20. N- terminal proBNP is 38,800. LDH is 1517. Chest x-ray did not have any acute pathology. Head CT is as stated above. CT scan of the patient's abdomen and pelvis revealed no evidence of adrenal mass or hyperplasia, but did show right ovarian cyst. IMPRESSION AND PLAN: The patient is a 51-year-old female with a known history of hypertension for which she has not taken any antihypertensive therapy for at least 3 years, baseline systolic blood pressure of 300 mmHg with her primary care physician as per the patient, also with daily alcohol and tobacco use as well as daily marijuana use and daily nonsteroidal anti-inflammatory drug use, which she was using to self-medicate for headaches (which may actually be secondary to her uncontrolled hypertension), who was admitted with nausea, vomiting, headaches as well as chest pain and is noted to have a blood pressure as high as 300/160 in the Emergency Department. CT scan is consistent with vasogenic edema from her uncontrolled hypertension with the presentation was compatible with hypertensive emergency. I agree with initiating Cardene infusion at this time with our goal being to decrease her mean arterial pressure by 10% to 20% in the first hour of presentation and by 25% in the first 24 hours of presentation. With respect to her acute kidney injury, given the fact that her LDH is elevated, I am concerned that it may represent malignant hypertension and that the elevated LDH thus could represent hemolysis. It is unclear what her baseline hemoglobin could be but given the fact that she has had vomiting for almost 1 week, she is likely to be hemoconcentrated. LDH is elevated, but I will also check a haptoglobin, which would be low if in fact this does represent malignant hypertension, which would be characterized by thrombotic microangiopathy. Of note, that could also explain her acute kidney injury as well. Typically, in such a situation, however, I would have expected the patient to be hyperkalemic. However, in this case, she has had vomiting for several days and therefore likely gastrointestinal losses of potassium. It is noted that the patient states that she has not urinated since yesterday and thus, a bladder scan will be performed prior to consideration of Cano catheter insertion to see whether or not the patient has any urine. For now, given the fact that the patient has had vomiting for approximately 1 week's duration with almost no urine output, I agree with starting her on normal saline as well as has been done by the intensive care unit staff. Although the hypokalemia could be secondary to vomiting, in truth there is very little potassium in vomitus (only approximately 10 mEq per liter or so) and typically, patients who vomit have hypokalemia as a result of increased urinary losses of potassium and since the patient has had diminished urine, we need to consider other causes of hypokalemia. Given her uncontrolled hypertension and presentation of hypertensive emergency, we will check plasma aldosterone concentration as well as plasma rennin activity to rule out hyperaldosteronism. If the patient's rennin and aldosterone levels are both elevated, she will need a renal artery duplex to rule out renovascular hypertension. If the patient's aldosterone is elevated, but the rennin is not, then she will need salt loading to see whether or not the aldosterone is suppressible and if it is not, that would suggest hyperaldosteronism state, the CAT scan findings notwithstanding. Certainly, she should not receive any more nonsteroidal anti-inflammatory drugs as these likely also contributed to her acute kidney injury, her uncontrolled hypertension and even possibly her nausea and vomiting as well. The patient is going to be on bedrest now given this elevated blood pressure and certainly I would not give her any anticoagulants for deep venous thrombosis prophylaxis, but rather sequential compression devices would suffice. For gastrointestinal prophylaxis, we can give her famotidine 20 mg daily. Of note, her bicarbonate level is high normal and this also could be secondary to the vomiting. Alternatively, given her longstanding tobacco and marijuana use, this may represent metabolic compensation for chronically increased pCO2 and she may benefit from an ABG at some point in the future. Her troponin is elevated, but this could also be secondary to acute kidney injury and we will need to trend this to see whether or not she may have had a primary cardiac event since she did have chest pain on presentation. While the patient is here, we should also have a renal ultrasound done to determine whether or not there is any asymmetry or atrophy of her kidneys as well. It is notable that the patient does have a family history of end-stage renal disease with her mother having been on dialysis and therefore, it is imperative that we control her blood pressure better. We will need a urinalysis with a protein to creatinine ratio but when all is said and done, a goal blood pressure of 130/80 would be reasonable in this patient. However, this will take some time to achieve and overall her insight is poor and she does not seem amenable to continuing antihypertensive therapy. Also of consideration here is the fact that she appears to have a history of alcohol abuse and thus we need to be concerned about the possibility of alcohol withdrawal in this patient as well and she will need to be monitored closely for this and I suggest perhaps even starting her on benzodiazepines. I will be following this complex patient closely for the above complex medical problems and I thank you very much for the courtesy of this consultation. More than 35 minutes were spent in the care of this ICU patient today. Israel Mcgarry MD, PEPE cc: [id number] TT: 09/13/2016 15:56:24 Confirmation # [id number] Dictation # [id number] LANE
[2016-09-13 16:40] LABS: CHOLESTEROL 274 mg/dL (130-200)
[2016-09-13 20:16] LABS: TROPONIN I 0.28 ng/mL
--- NOTE | 2016-09-13 20:34 | CT ---
EXAM: CT Chest Without Intravenous Contrast. CLINICAL HISTORY: 51 years old, female; Abnormal findings; Other: R/O aortic aneurysm; Additional info: R/O aortic aneurysm if test is negative TECHNIQUE: Axial computed tomography images of the chest without intravenous contrast. This CT exam was performed using one or more of the following dose reduction techniques: automated exposure control, adjustment of the mA and/or kV according to patient size, and/or use of iterative reconstruction technique. MIP reconstructed images were created and reviewed. Coronal and sagittal reformatted images were created and reviewed. EXAM DATE/TIME: 09/13/2016 4:25 PM COMPARISON: Prior chest radiographs of 09/13/2016 FINDINGS: LUNGS: Very mild emphysematous changes in the lung apices. No evidence of significant focal consolidation/infiltrate in the lungs. No evidence of diffuse pulmonary vascular congestion. PLEURAL SPACE: No pneumothorax or significant pleural effusions seen. HEART: Heart appears mildly enlarged. Coronary artery calcification. No evidence of significant pericardial effusion. BONES/JOINTS: No acute fractures or other acute bony abnormality noted. SOFT TISSUES: No acute abnormality of the visualized soft tissues is seen. VASCULATURE: Mild atherosclerotic calcification of the aortic arch. Exam is nondiagnostic for aortic dissection, secondary to unenhanced technique. No evidence of thoracic aortic aneurysm. LYMPH NODES: No evidence of diffuse lymphadenopathy. KIDNEYS AND URETERS: Low density lesion in the right kidney, most likely a cyst. IMPRESSION: - No evidence of significant acute process on this unenhanced exam. No evidence of thoracic aortic aneurysm. - Mild cardiomegaly. - See above for remaining findings.
[2016-09-13] MEDS ORDERED: Famotidine 20mg/50ml 50 ML IVPB STA (22:38)
--- NOTE | 2016-09-13 23:08 | MRI ---
EXAM: MR Head Without Intravenous Contrast. CLINICAL HISTORY: 51 years old, female; Abnormal findings; Abnormal radiologic findings of head/skull; Not specified; Patient HX: F/u to a head ct. ; Additional info: Vasogenic edema vs microvascular changes TECHNIQUE: Magnetic resonance images of the head/brain without intravenous contrast in multiple planes. EXAM DATE/TIME: 09/13/2016 5:27 PM COMPARISON: Head CT done earlier on the same day, 12:20 PM FINDINGS: BRAIN: There is extensive abnormal increased T2 and FLAIR signal seen throughout the brainstem, involving the medulla, sheyla and midbrain, which is diffuse and confluent in nature. There is also abnormal increased T2 signal in the basal ganglia bilaterally, greatest in the thalami bilaterally, which appears relatively symmetric. Extensive abnormal increased T2 signal is also visualized in the white matter bilaterally, primarily in the deep and periventricular white matter. The brainstem signal abnormality is confluent. No acute extra-axial fluid collections visualized. No evidence of restricted diffusion/acute infarct. No evidence of midline shift, ventricular effacement, basilar cistern effacement, or other significant intracranial mass effect. No signal abnormality seen to suggest acute hemorrhage. VENTRICLES: No evidence of significant hydrocephalus. BONES/JOINTS: No acute abnormality identified. IMPRESSION: - Extensive signal abnormality in the brainstem and the basal ganglia bilaterally, particularly the thalami, suspicious for edema. There is also extensive white matter signal abnormality, in the cerebral hemispheres bilaterally. Findings are of uncertain etiology, but could be secondary to acute encephalopathy (including infectious, inflammatory or hypertensive encephalopathy), extensive acute demyelinating disease, a toxic insult, or an underlying metabolic abnormality. There is no evidence of acute infarct or acute hemorrhage. - A repeat exam post contrast would be helpful for further evaluation, to assess for associated enhancement or an underlying infiltrative mass of the brainstem. - See above for remaining findings.
--- NOTE | 2016-09-13 23:18 | CP.PCM.PN ---
Subjective - Date & Time of Evaluation Date of Evaluation: 09/13/16 Time of Evaluation: 21:30 - Subjective Subjective: Significant Overnight Events: The patient is a 51 year old woman with a history of poorly controlled HTN admitted to the ICU today with hypertensive emergency, hypertensive encephalopathy, cardiomyopathy, ESTEFANI and left-sided retinal detachment. Overnight, I spoke (via telephone) with ophthalmology (Dr. Bae) who had seen the patient in the ED earlier. He did not feel any emergent intervention was necessary overnight but he strongly recommends for the patient to be discharged tomorrow so she can follow-up PETER at his office, where he will be able to better assess her. He will then likely send her to a retinal specialist tomorrow for urgent intervention. I mentioned to Dr. Bae that every attempt would be made to stabilize the patient and discharge her per his request. However, since the patient is currently requiring Nicardipine drip for BP control, it was unclear whether she would be stable enough for discharge by tomorrow. In addition to her uncontrolled BP, she also has ESTEFANI and elevated troponins of unclear etiology. If the patient is too unstable for discharge tomorrow, which appears increasingly likely, then she may require transfer to a facility with a retinal specialist in-house tomorrow. I will convey Dr. Watkins recommendations to both the primary MD as well as the daytime nurse unit manager (Dr. Florian) and defer to them to finally determine the best course ( and have them follow-up with Dr. Bae tomorrow morning). Greatly appreciate Dr. Watkins input and cooperation. In addition, overnight, the MRI-brain was expedited and showed no evidence of ischemic CVA but did show extensive edematous changes involving the brainstem and basal ganglia, most likely consistent with hypertensive encephalopathy ( versus toxic encephalopathy or mass). It did not show any midline shift, however. The radiologist recommended obtaining a non-urgent MRI-brain with contrast to evaluate for tumor or mass but this wasnt ordered given the patient s ESTEFANI. Lastly, a neurology consult was placed given the abnormal MRI findings. The patients neuro exam has remained unchanged thus far (in comparison to initial exam findings documented by the ED). Objective - Vital Signs/Intake and Output Vital Signs (last 24 hours): Temp Pulse Resp BP Pulse Ox 98 F 73 24 179/95 H 100 09/13/16 16:18 09/13/16 23:08 09/13/16 23:00 09/13/16 23:00 09/13/16 23:08 Intake and Output: 09/13/16 09/14/16 18:59 06:59 Intake Total 1390 0 Balance 1390 0 - Medications Medications: Current Medications Amlodipine Besylate (Norvasc) 5 mg PO DAILY [facility] Aspirin (Ecotrin) 81 mg PO DAILY [facility] Nicardipine HCl (Cardene Iv Premix) 200 mls @ 50 mls/hr IV .Q4H PRN; Protocol; 5 MG/HR PRN Reason: TITRATE PER MD ORDER Last Titration: 09/13/16 23:01 Dose: 5 mg/hr Potassium Chloride 20 meq/ (Sodium Chloride) 1,010 mls @ 100 mls/hr IV .Q10H6M [facility] Last Admin: 09/13/16 23:00 Dose: 100 mls/hr Ondansetron HCl (Zofran Inj) 4 mg IVP Q6H PRN PRN Reason: Nausea/Vomiting Last Admin: 09/13/16 23:02 Dose: 4 mg Pantoprazole Sodium (Protonix Inj) 40 mg IVP DAILY [facility] - Labs Labs: PT 10.7 Seconds (9.9-11.8) 09/13/16 10:30 INR 0.99 (0.93-1.08) 09/13/16 10:30 APTT 26.4 Seconds (23.7-30.8) 09/13/16 10:30
[2016-09-14 04:09] LABS: ADD MANUAL DIFF? NO
[2016-09-14 04:20] LABS: BASO # 0.02 K/mm3 (0.0-2.0); BASO % 0.2 % (0.0-3.0); EOS % 0.2 % (1.5-5.0); GRAN # 10.96 (1.4-6.5); GRAN % 82.3 % (50.0-68.0); HEMATOCRIT 29.1 % (36.0-48.0); LYMPH # 1.3 (1.2-3.4); LYMPH % 9.8 % (22.0-35.0); MEAN CELL VOLUME 81.3 fL (80.0-105.0); MEAN CORPUSCULAR HEMOGLOBIN 29.6 pg (25.0-35.0); MEAN CORPUSCULAR HGB CONC 36.4 g/dl (31.0-37.0); MONO % 7.5 % (1.0-6.0); PLATELET COUNT 166 10^3/uL (120.0-450.0); RED CELL DISTRIBUTION WIDTH 18.1 % (11.5-14.5); WHITE BLOOD COUNT 13.3 10^3/ul (4.5-11.0)
[2016-09-14 04:35] LABS: TROPONIN I 1.98 ng/mL
[2016-09-14 04:46] LABS: BILIRUBIN,TOTAL 0.8 mg/dL (0.2-1.3); CALCIUM 9.4 mg/dL (8.4-10.5); TOTAL PROTEIN 7.7 g/dL (5.8-8.3)
[2016-09-14 04:50] LABS: POTASSIUM 2.5 mmol/L (3.6-5.0)
[2016-09-14] MEDS ORDERED: Potassium Chloride 20 mEq 100 ML IVPB ONE ×3 (04:55→11:31)
[2016-09-14] MEDS ORDERED: Alum-Mag Hydrox-Simethicone Susp (30 mL) PO ONE ×2 (04:57→07:37)
--- NOTE | 2016-09-14 08:53 | US ---
PROCEDURE: Bilateral carotid artery duplex ultrasound HISTORY: Carotid stenosis dizziness. PHYSICIAN(S): Charlie Donis MD. TECHNIQUE: Duplex sonography and color-flow Doppler were used to evaluate the carotid bifurcations and limited segments of the vertebral arteries bilaterally. FINDINGS: There is mild smooth heterogeneous plaque noted at the carotid bifurcations bilaterally. The peak systolic velocity in the proximal right internal carotid artery is 77 cm/sec. This corresponds to a 20 to 39% proximal right ICA stenosis. Mildly elevated systolic velocities are noted in the proximal right external carotid artery. There is antegrade flow in the dominant right vertebral artery. The peak systolic velocity in the proximal left internal carotid artery is 62 cm/sec. This corresponds to a 20 to 39% proximal left ICA stenosis. Mildly elevated systolic velocities are noted in the proximal left external carotid artery. There is antegrade flow in the atretic left vertebral artery. IMPRESSION: 1. Bilateral 20-39% proximal ICA stenoses. 2. Antegrade flow in both vertebral arteries.
[2016-09-14] MEDS: Morphine 2 mg/ml ISec IVP PRN ×2 (09:35→18:29)
[2016-09-14 10:07] LABS: MAGNESIUM 1.9 mg/dL (1.7-2.2); PHOSPHOROUS 5.9 mg/dL (2.5-4.5)
[2016-09-14 10:21] LABS: IRON 37 ug/dL (45-180)
--- NOTE | 2016-09-14 10:33 | CONS ---
I saw her in consultation a little while ago. I redilated her left eye and it appears that she has a retinal detachment in the left eye. I have instructed her as soon as she is discharged from the [facility] to come to see me in the office for further treatment. Christopher Bae MD cc: [id number] TT: 09/14/2016 10:32:47 mn
--- NOTE | 2016-09-14 10:37 | CONS ---
The patient is a 51-year-old black female admitted to the [facility] for hypertensive crisis. She states that she has been unable to see out of her left eye for the last 24 hours. PAST OPHTHALMIC HISTORY: The patient states that she has glaucoma. She is also quite myopic. On physical examination, her visual acuity was 20/80 in the right eye, left eye light perception. Co rneal exam was normal. Lens exam revealed a dense posterior capsular cataract in the left eye, sligh t posterior capsular cataract in the right eye. DILATED FUNDUS EXAMINATION: Dilated with Gerry-Synephrine and mydriacyl showed the fundus in the right eye was normal, but the left eye the fundus could not be visualized. It appeared that there was a m edia opacity in addition to the cataract. ASSESSMENT: The patient has a cataract in her left eye, and sudden loss of vision with a probable vi treous hemorrhage in the left eye. I told the patient to come see me after she is discharged, in my office. Christopher Bae MD cc: 40 TT: 09/14/2016 10:37:11 jn
--- NOTE | 2016-09-14 10:37 | US ---
PROCEDURE: Ultrasound of the Kidneys HISTORY: HTN COMPARISON: None available. TECHNIQUE: Sonogram of the kidneys. FINDINGS: RIGHT KIDNEY: Measures: 10.4 cm. Normal in size and contour. There is diffuse increased cortical echogenicity. No stone, solid mass lesion or hydronephrosis visualized. There is a 1.6 x 1.4 x 1.3 cm simple cyst in the upper pole. LEFT KIDNEY: Measures: 11.4 cm. Normal in size and contour. Evaluation is limited due to excessive bowel gas trauma allowing for this mild diffuse increased cortical echogenicity. No stone, solid mass lesion or hydronephrosis visualized. OTHER FINDINGS: None. IMPRESSION: 1.6 cm simple cyst in the upper pole of the right kidney. Medical renal disease. No nephrolithiasis or hydronephrosis.
--- NOTE | 2016-09-14 12:03 | CP.CCUPN ---
<Madelyn Raya - Last Filed: 09/14/16 11:57> CCU Objective - Vital Signs / Intake & Output Vital Signs (Last 4 hours): Vital Signs Pulse Resp BP Pulse Ox 09/14/16 11:16 88 174/89 H 09/14/16 10:00 87 09/14/16 09:30 87 188/117 H 86 L 09/14/16 09:18 88 198/109 H 09/14/16 09:00 87 52 H 198/109 H 96 09/14/16 08:30 88 33 H 191/103 H 99 09/14/16 08:00 85 26 H 172/92 H 100 Intake and Output (Last 8hrs): Intake & Output 09/13/16 09/14/16 09/14/16 22:59 06:59 14:59 Intake Total 1390 1900 Output Total 250 Balance 1390 1650 Weight 158 lb 3.2 oz Intake: IV 1150 1900 Right Antecubital 1150 1900 Other 240 Output: Urine 250 Urethral ([place]) 250 Other: Voiding Method Indwelling Catheter - Physical Exam Head: Positive for: Atraumatic, Normocephalic Pupils: Positive for: PERRL Extroacular Muscles: Positive for: EOMI Conjunctiva: Positive for: Normal Mouth: Positive for: Moist Mucous Membranes Neck: Positive for: Normal Range of Motion Respiratory/Chest: Positive for: Clear to Auscultation, Good Air Exchange, Tender to Palpation (Tenderness to chest wall). Negative for: Respiratory Distress, Accessory Muscle Use Cardiovascular: Positive for: Regular Rate and Rhythm, Normal S1, S2. Negative for: Murmurs Abdomen: Positive for: Normal Bowel Sounds. Negative for: Tenderness, Distention, Peritoneal Signs Back: Positive for: Normal Inspection Upper Extremity: Positive for: Normal Inspection. Negative for: Cyanosis, Edema Lower Extremity: Positive for: Normal Inspection, NORMAL PULSES. Negative for: Edema, CALF TENDERNESS Neurological: Positive for: GCS=15, CN II-XII Intact, Speech Normal Skin: Positive for: Warm, Dry, Normal Color. Negative for: Rashes Psychiatric: Positive for: Alert, Oriented x 3, Normal Insight, Normal Concentration - Medications Active Medications: Active Medications Generic Name Dose Route Start Last Admin Trade Name Freq PRN Reason Stop Dose Admin Amlodipine Besylate 5 mg 09/14/16 10:00 09/14/16 09:18 Norvasc PO 5 mg DAILY ANNA Administration Aspirin 81 mg 09/14/16 10:00 09/14/16 09:18 Ecotrin PO 81 mg DAILY ANNA Administration Carvedilol 3.125 mg 09/14/16 11:15 09/14/16 11:16 Coreg PO 3.125 mg BID ANNA Administration Docusate Sodium 100 mg 09/14/16 10:00 09/14/16 09:18 Colace PO 100 mg DAILY ANNA Administration Famotidine 20 mg 09/14/16 10:00 09/14/16 09:19 Pepcid PO 20 mg DAILY ANNA Administration Nicardipine HCl 200 mls @ 50 mls/hr 09/13/16 11:20 09/14/16 05:05 Cardene Iv Premix IV 5 mg/hr .Q4H PRN Titration TITRATE PER MD ORDER Protocol 5 MG/HR Potassium Chloride 20 meq/ 1,010 mls @ 100 mls/hr 09/13/16 12:30 09/13/16 23:00 Sodium Chloride IV 100 mls/hr .Q10H6M ANNA Administration Potassium Chloride 100 mls @ 50 mls/hr 09/14/16 11:31 Potassium Chloride 20 Meq/100 Ml IVPB 09/14/16 13:30 ONCE ONE Morphine Sulfate 2 mg 09/14/16 07:39 09/14/16 09:35 Morphine IVP 2 mg Q4H PRN Administration Pain, moderate (4-7) Ondansetron HCl 4 mg 09/13/16 14:20 09/13/16 23:02 Zofran Inj IVP 4 mg Q6H PRN Administration Nausea/Vomiting - Patient Studies Lab Studies: Lab Studies 09/14/16 09/14/16 09/14/16 Range/Units 10:00 04:00 03:00 WBC 13.3 H (4.5-11.0) 10^3/ul RBC 3.58 (3.5-6.1) 10^6/uL Hgb 10.6 L (12.0-16.0) gm/dL Hct 29.1 L (36.0-48.0) % MCV 81.3 (80.0-105.0) fL MCH 29.6 (25.0-35.0) pg MCHC 36.4 (31.0-37.0) g/dl RDW 18.1 H (11.5-14.5) % Plt Count 166 (120.0-450.0) 10^3/uL Gran % 82.3 H (50.0-68.0) % Lymph % (Auto) 9.8 L (22.0-35.0) % [place] % (Auto) 7.5 H (1.0-6.0) % Eos % (Auto) 0.2 L (1.5-5.0) % Baso % (Auto) 0.2 (0.0-3.0) % Gran # 10.96 H (1.4-6.5) Lymph # 1.3 (1.2-3.4) [place] # 1.0 H (0.1-0.6) Eos # 0.0 (0.0-0.7) Baso # 0.02 (0.0-2.0) K/mm3 Sodium 131 L (132-148) mmol/L Potassium 2.5 L* (3.6-5.0) mmol/L Chloride 89 L (98-107) mmol/L Carbon Dioxide 25 (21-33) mmol/L Anion Gap 20 (10-20) BUN 62 H (7-21) mg/dL Creatinine 4.1 H (0.5-1.4) mg/dL Est GFR ( Amer) 14 Est GFR (Non-Af Amer) 12 Random Glucose 128 H (70-110) mg/dL Hemoglobin A1c (4.2-6.5) % Calcium 9.4 (8.4-10.5) mg/dL Phosphorus 5.9 H (2.5-4.5) mg/dL Magnesium 1.9 (1.7-2.2) mg/dL Iron 37 L (45-180) ug/dL TIBC 341 (265-497) ug/dL % Saturation 11 L (20-55) % Total Bilirubin 0.8 (0.2-1.3) mg/dL AST 37 (15-39) U/L ALT 23 (7-56) U/L Alkaline Phosphatase 58 (38-133) U/L Lactate Dehydrogenase 1121 H (333-699) U/L Total Creatine Kinase 148 (35-230) U/L Troponin I 1.98 H* D ng/mL Total Protein 7.7 (5.8-8.3) g/dL Albumin 3.9 (3.0-4.8) g/dL Globulin 3.8 gm/dL Albumin/Globulin Ratio 1.0 L (1.1-1.8) Ur Random Creatinine mg/dL Ur Random Urea Nitrogn mg/dL Urine Opiates Screen (NEGATIVE) Urine Methadone Screen (NEGATIVE) Ur Barbiturates Screen (NEGATIVE) Ur Phencyclidine Scrn (NEGATIVE) Ur Amphetamines Screen (NEGATIVE) U Benzodiazepines Scrn (NEGATIVE) U Oth Cocaine Metabols (NEGATIVE) U Cannabinoids Screen (NEGATIVE) 09/14/16 09/13/16 Range/Units 01:00 19:51 WBC (4.5-11.0) 10^3/ul RBC (3.5-6.1) 10^6/uL Hgb (12.0-16.0) gm/dL Hct (36.0-48.0) % MCV (80.0-105.0) fL MCH (25.0-35.0) pg MCHC (31.0-37.0) g/dl RDW (11.5-14.5) % Plt Count (120.0-450.0) 10^3/uL Gran % (50.0-68.0) % Lymph % (Auto) (22.0-35.0) % [place] % (Auto) (1.0-6.0) % Eos % (Auto) (1.5-5.0) % Baso % (Auto) (0.0-3.0) % Gran # (1.4-6.5) Lymph # (1.2-3.4) [place] # (0.1-0.6) Eos # (0.0-0.7) Baso # (0.0-2.0) K/mm3 Sodium (132-148) mmol/L Potassium (3.6-5.0) mmol/L Chloride (98-107) mmol/L Carbon Dioxide (21-33) mmol/L Anion Gap (10-20) BUN (7-21) mg/dL Creatinine (0.5-1.4) mg/dL Est GFR ( Amer) Est GFR (Non-Af Amer) Random Glucose (70-110) mg/dL Hemoglobin A1c 4.2 (4.2-6.5) % Calcium (8.4-10.5) mg/dL Phosphorus (2.5-4.5) mg/dL Magnesium (1.7-2.2) mg/dL Iron (45-180) ug/dL TIBC (265-497) ug/dL % Saturation (20-55) % Total Bilirubin (0.2-1.3) mg/dL AST (15-39) U/L ALT (7-56) U/L Alkaline Phosphatase (38-133) U/L Lactate Dehydrogenase 1186 H (333-699) U/L Total Creatine Kinase 86 (35-230) U/L Troponin I 0.28 H* D ng/mL Total Protein (5.8-8.3) g/dL Albumin (3.0-4.8) g/dL Globulin gm/dL Albumin/Globulin Ratio (1.1-1.8) Ur Random Creatinine 102 mg/dL Ur Random Urea Nitrogn 482 mg/dL Urine Opiates Screen Negative (NEGATIVE) Urine Methadone Screen Negative (NEGATIVE) Ur Barbiturates Screen Negative (NEGATIVE) Ur Phencyclidine Scrn Negative (NEGATIVE) Ur Amphetamines Screen Negative (NEGATIVE) U Benzodiazepines Scrn Negative (NEGATIVE) U Oth Cocaine Metabols Negative (NEGATIVE) U Cannabinoids Screen Positive H (NEGATIVE) Laboratory Results - last 24 hr 09/13/16 09/14/16 09/14/16 19:51 01:00 03:00 WBC RBC Hgb Hct MCV MCH MCHC RDW Plt Count Gran % Lymph % (Auto) [place] % (Auto) Eos % (Auto) Baso % (Auto) Gran # Lymph # [place] # Eos # Baso # Sodium Potassium Chloride Carbon Dioxide Anion Gap BUN Creatinine Est GFR ( Amer) Est GFR (Non-Af Amer) Random Glucose Hemoglobin A1c 4.2 Calcium Phosphorus Magnesium Iron TIBC % Saturation Total Bilirubin AST ALT Alkaline Phosphatase Lactate Dehydrogenase 1186 H 1121 H Total Creatine Kinase 86 148 Troponin I 0.28 H* D 1.98 H* D Total Protein Albumin Globulin Albumin/Globulin Ratio Ur Random Creatinine 102 Ur Random Urea Nitrogn 482 Urine Opiates Screen Negative Urine Methadone Screen Negative Ur Barbiturates Screen Negative Ur Phencyclidine Scrn Negative Ur Amphetamines Screen Negative U Benzodiazepines Scrn Negative U Oth Cocaine Metabols Negative U Cannabinoids Screen Positive H 09/14/16 09/14/16 04:00 10:00 WBC 13.3 H RBC 3.58 Hgb 10.6 L Hct 29.1 L MCV 81.3 MCH 29.6 MCHC 36.4 RDW 18.1 H Plt Count 166 Gran % 82.3 H Lymph % (Auto) 9.8 L [place] % (Auto) 7.5 H Eos % (Auto) 0.2 L Baso % (Auto) 0.2 Gran # 10.96 H Lymph # 1.3 [place] # 1.0 H Eos # 0.0 Baso # 0.02 Sodium 131 L Potassium 2.5 L* Chloride 89 L Carbon Dioxide 25 Anion Gap 20 BUN 62 H Creatinine 4.1 H Est GFR ( Amer) 14 Est GFR (Non-Af Amer) 12 Random Glucose 128 H Hemoglobin A1c Calcium 9.4 Phosphorus 5.9 H Magnesium 1.9 Iron 37 L TIBC 341 % Saturation 11 L Total Bilirubin 0.8 AST 37 ALT 23 Alkaline Phosphatase 58 Lactate Dehydrogenase Total Creatine Kinase Troponin I Total Protein 7.7 Albumin 3.9 Globulin 3.8 Albumin/Globulin Ratio 1.0 L Ur Random Creatinine Ur Random Urea Nitrogn Urine Opiates Screen Urine Methadone Screen Ur Barbiturates Screen Ur Phencyclidine Scrn Ur Amphetamines Screen U Benzodiazepines Scrn U Oth Cocaine Metabols U Cannabinoids Screen Critical Care Progress Note - Nutrition Nutrition: Nutrition Category Date Time Status NPO Diet [DIET] Diets 09/13/16 Dinner Ordered Assessment/Plan - Assessment and Plan (Free Text) Assessment: 51 Female with PMH of uncontrolled HTN Hypertensive urgency: BP 150-300 systolic NSTEMI: trop 0.2 -> 2 ESTEFANI: Cr.3.3 ->4.1 Neuro: AAO x3, retinal detachment CT: diffuse edema Brain MRI: diffuse edema -Opthalmologist consult : Tropicamide, Phenylephrine opthalic solution . Recommends retinal repair. -monitor neuro function -f/u EEG CV: Hypertensive urgency , Hypokalemia 2.4 ->2.5 -Echo: Anterior dyskinesia -EKG: NSR -Cardene drip -NS KCL 20meq at 100/hr -Monitor VS -Maintain MAP 65+ -Norvasc/ASA/Coreg -f/u metanephrine Pulm -Keep saO2 90%+ -NC O2 PRN -CXR: no active disease GI -Pepcid -NPO -Zofran -Maalox -Colace Renal: ESTEFANI Cr 3.3 ->4.4 -Nephro consult -Keep euvolemia -Monitor I/O ID : Leukocytosis 12.3->13.3, Afebrile -Keep normothermia DVT: SCD Dispo: transfer to tertiary center with retinal specialist: [facility] ICU attending <Stephen MOULTON,Jackelin H - Last Filed: 09/14/16 14:59> CCU Objective - Vital Signs / Intake & Output Vital Signs (Last 4 hours): Vital Signs Temp Pulse Resp BP Pulse Ox 09/14/16 14:14 88 20 172/94 H 99 09/14/16 14:00 89 22 100 09/14/16 13:00 87 27 H 186/93 H 100 09/14/16 12:30 89 30 H 188/105 H 100 09/14/16 12:01 87 21 100 09/14/16 12:00 99.4 F 87 20 182/97 H 88 L 09/14/16 11:30 88 22 178/97 H 100 09/14/16 11:16 88 174/89 H 09/14/16 11:00 89 17 174/89 H 100 Intake and Output (Last 8hrs): Intake & Output 09/13/16 09/14/16 09/14/16 22:59 06:59 14:59 Intake Total 1390 1900 Output Total 250 Balance 1390 1650 Weight 158 lb 3.2 oz Intake: IV 1150 1900 Right Antecubital 1150 1900 Other 240 Output: Urine 250 Urethral ([place]) 250 Other: Voiding Method Indwelling Catheter - Medications Active Medications: Active Medications Generic Name Dose Route Start Last Admin Trade Name Freq PRN Reason Stop Dose Admin Amlodipine Besylate 5 mg 09/14/16 10:00 09/14/16 09:18 Norvasc PO 5 mg DAILY ANNA Administration Aspirin 81 mg 09/14/16 10:00 09/14/16 09:18 Ecotrin PO 81 mg DAILY ANNA Administration Carvedilol 3.125 mg 09/14/16 11:15 09/14/16 11:16 Coreg PO 3.125 mg BID ANNA Administration Docusate Sodium 100 mg 09/14/16 10:00 09/14/16 09:18 Colace PO 100 mg DAILY ANNA Administration Famotidine 20 mg 09/14/16 10:00 09/14/16 09:19 Pepcid PO 20 mg DAILY ANNA Administration Nicardipine HCl 200 mls @ 50 mls/hr 09/13/16 11:20 09/14/16 05:05 Cardene Iv Premix IV 5 mg/hr .Q4H PRN Titration TITRATE PER MD ORDER Protocol 5 MG/HR Potassium Chloride 20 meq/ 1,010 mls @ 100 mls/hr 09/13/16 12:30 09/13/16 23:00 Sodium Chloride IV 100 mls/hr .Q10H6M ANNA Administration Morphine Sulfate 2 mg 09/14/16 07:39 09/14/16 09:35 Morphine IVP 2 mg Q4H PRN Administration Pain, moderate (4-7) Ondansetron HCl 4 mg 09/13/16 14:20 09/13/16 23:02 Zofran Inj IVP 4 mg Q6H PRN Administration Nausea/Vomiting - Patient Studies Lab Studies: Lab Studies 09/14/16 09/14/16 09/14/16 Range/Units 10:00 04:00 03:00 WBC 13.3 H (4.5-11.0) 10^3/ul RBC 3.58 (3.5-6.1) 10^6/uL Hgb 10.6 L (12.0-16.0) gm/dL Hct 29.1 L (36.0-48.0) % MCV 81.3 (80.0-105.0) fL MCH 29.6 (25.0-35.0) pg MCHC 36.4 (31.0-37.0) g/dl RDW 18.1 H (11.5-14.5) % Plt Count 166 (120.0-450.0) 10^3/uL Gran % 82.3 H (50.0-68.0) % Lymph % (Auto) 9.8 L (22.0-35.0) % [place] % (Auto) 7.5 H (1.0-6.0) % Eos % (Auto) 0.2 L (1.5-5.0) % Baso % (Auto) 0.2 (0.0-3.0) % Gran # 10.96 H (1.4-6.5) Lymph # 1.3 (1.2-3.4) [place] # 1.0 H (0.1-0.6) Eos # 0.0 (0.0-0.7) Baso # 0.02 (0.0-2.0) K/mm3 Sodium 131 L (132-148) mmol/L Potassium 2.5 L* (3.6-5.0) mmol/L Chloride 89 L (98-107) mmol/L Carbon Dioxide 25 (21-33) mmol/L Anion Gap 20 (10-20) BUN 62 H (7-21) mg/dL Creatinine 4.1 H (0.5-1.4) mg/dL Est GFR ( Amer) 14 Est GFR (Non-Af Amer) 12 Random Glucose 128 H (70-110) mg/dL Hemoglobin A1c (4.2-6.5) % Calcium 9.4 (8.4-10.5) mg/dL Phosphorus 5.9 H (2.5-4.5) mg/dL Magnesium 1.9 (1.7-2.2) mg/dL Iron 37 L (45-180) ug/dL TIBC 341 (265-497) ug/dL % Saturation 11 L (20-55) % Total Bilirubin 0.8 (0.2-1.3) mg/dL AST 37 (15-39) U/L ALT 23 (7-56) U/L Alkaline Phosphatase 58 (38-133) U/L Lactate Dehydrogenase 1121 H (333-699) U/L Total Creatine Kinase 148 (35-230) U/L Troponin I 1.43 H* D 1.98 H* D ng/mL Total Protein 7.7 (5.8-8.3) g/dL Albumin 3.9 (3.0-4.8) g/dL Globulin 3.8 gm/dL Albumin/Globulin Ratio 1.0 L (1.1-1.8) Procalcitonin (0.19-0.49) NG/ML Ur Random Creatinine mg/dL Ur Random Urea Nitrogn mg/dL Urine Opiates Screen (NEGATIVE) Urine Methadone Screen (NEGATIVE) Ur Barbiturates Screen (NEGATIVE) Ur Phencyclidine Scrn (NEGATIVE) Ur Amphetamines Screen (NEGATIVE) U Benzodiazepines Scrn (NEGATIVE) U Oth Cocaine Metabols (NEGATIVE) U Cannabinoids Screen (NEGATIVE) 09/14/16 09/13/16 09/13/16 Range/Units 01:00 19:51 16:00 WBC (4.5-11.0) 10^3/ul RBC (3.5-6.1) 10^6/uL Hgb (12.0-16.0) gm/dL Hct (36.0-48.0) % MCV (80.0-105.0) fL MCH (25.0-35.0) pg MCHC (31.0-37.0) g/dl RDW (11.5-14.5) % Plt Count (120.0-450.0) 10^3/uL Gran % (50.0-68.0) % Lymph % (Auto) (22.0-35.0) % [place] % (Auto) (1.0-6.0) % Eos % (Auto) (1.5-5.0) % Baso % (Auto) (0.0-3.0) % Gran # (1.4-6.5) Lymph # (1.2-3.4) [place] # (0.1-0.6) Eos # (0.0-0.7) Baso # (0.0-2.0) K/mm3 Sodium (132-148) mmol/L Potassium (3.6-5.0) mmol/L Chloride (98-107) mmol/L Carbon Dioxide (21-33) mmol/L Anion Gap (10-20) BUN (7-21) mg/dL Creatinine (0.5-1.4) mg/dL Est GFR ( Amer) Est GFR (Non-Af Amer) Random Glucose (70-110) mg/dL Hemoglobin A1c 4.2 (4.2-6.5) % Calcium (8.4-10.5) mg/dL Phosphorus (2.5-4.5) mg/dL Magnesium (1.7-2.2) mg/dL Iron (45-180) ug/dL TIBC (265-497) ug/dL % Saturation (20-55) % Total Bilirubin (0.2-1.3) mg/dL AST (15-39) U/L ALT (7-56) U/L Alkaline Phosphatase (38-133) U/L Lactate Dehydrogenase 1186 H (333-699) U/L Total Creatine Kinase 86 (35-230) U/L Troponin I 0.28 H* D ng/mL Total Protein (5.8-8.3) g/dL Albumin (3.0-4.8) g/dL Globulin gm/dL Albumin/Globulin Ratio (1.1-1.8) Procalcitonin 0.29 (0.19-0.49) NG/ML Ur Random Creatinine 102 mg/dL Ur Random Urea Nitrogn 482 mg/dL Urine Opiates Screen Negative (NEGATIVE) Urine Methadone Screen Negative (NEGATIVE) Ur Barbiturates Screen Negative (NEGATIVE) Ur Phencyclidine Scrn Negative (NEGATIVE) Ur Amphetamines Screen Negative (NEGATIVE) U Benzodiazepines Scrn Negative (NEGATIVE) U Oth Cocaine Metabols Negative (NEGATIVE) U Cannabinoids Screen Positive H (NEGATIVE) Laboratory Results - last 24 hr 09/13/16 09/13/16 09/14/16 16:00 19:51 01:00 WBC RBC Hgb Hct MCV MCH MCHC RDW Plt Count Gran % Lymph % (Auto) [place] % (Auto) Eos % (Auto) Baso % (Auto) Gran # Lymph # [place] # Eos # Baso # Sodium Potassium Chloride Carbon Dioxide Anion Gap BUN Creatinine Est GFR ( Amer) Est GFR (Non-Af Amer) Random Glucose Hemoglobin A1c 4.2 Calcium Phosphorus Magnesium Iron TIBC % Saturation Total Bilirubin AST ALT Alkaline Phosphatase Lactate Dehydrogenase 1186 H Total Creatine Kinase 86 Troponin I 0.28 H* D Total Protein Albumin Globulin Albumin/Globulin Ratio Procalcitonin 0.29 Ur Random Creatinine 102 Ur Random Urea Nitrogn 482 Urine Opiates Screen Negative Urine Methadone Screen Negative Ur Barbiturates Screen Negative Ur Phencyclidine Scrn Negative Ur Amphetamines Screen Negative U Benzodiazepines Scrn Negative U Oth Cocaine Metabols Negative U Cannabinoids Screen Positive H 09/14/16 09/14/16 09/14/16 03:00 04:00 10:00 WBC 13.3 H RBC 3.58 Hgb 10.6 L Hct 29.1 L MCV 81.3 MCH 29.6 MCHC 36.4 RDW 18.1 H Plt Count 166 Gran % 82.3 H Lymph % (Auto) 9.8 L [place] % (Auto) 7.5 H Eos % (Auto) 0.2 L Baso % (Auto) 0.2 Gran # 10.96 H Lymph # 1.3 [place] # 1.0 H Eos # 0.0 Baso # 0.02 Sodium 131 L Potassium 2.5 L* Chloride 89 L Carbon Dioxide 25 Anion Gap 20 BUN 62 H Creatinine 4.1 H Est GFR ( Amer) 14 Est GFR (Non-Af Amer) 12 Random Glucose 128 H Hemoglobin A1c Calcium 9.4 Phosphorus 5.9 H Magnesium 1.9 Iron 37 L TIBC 341 % Saturation 11 L Total Bilirubin 0.8 AST 37 ALT 23 Alkaline Phosphatase 58 Lactate Dehydrogenase 1121 H Total Creatine Kinase 148 Troponin I 1.98 H* D 1.43 H* D Total Protein 7.7 Albumin 3.9 Globulin 3.8 Albumin/Globulin Ratio 1.0 L Procalcitonin Ur Random Creatinine Ur Random Urea Nitrogn Urine Opiates Screen Urine Methadone Screen Ur Barbiturates Screen Ur Phencyclidine Scrn Ur Amphetamines Screen U Benzodiazepines Scrn U Oth Cocaine Metabols U Cannabinoids Screen Critical Care Progress Note - Nutrition Nutrition: Nutrition Category Date Time Status Liquid Diet [DIET] Diets 09/14/16 Lunch Ordered Attending/Attestation - Attestation I have personally seen and examined this patient.: Yes I have fully participated in the care of the patient.: Yes I have reviewed all pertinent clinical information: Yes Notes (Text): 09/14/16 14:52 51 y/o F W? HTN Emergency END organ damage noted . ESTEFANI w/ possible RTA NSTEMI w/ ACS- Echo shows WMA with reduced EF% in the setting of HTN emergency . PRES syndrome- MRI confirmed, woul dneed to monitor and repeat scan in 72 hrs . Neurology following as well. L eye blindness, presumed Retinal detachment per Dr. Bae . Spoke to [facility] myself with opthamology resident and the ICU fellow about transfer . Case d/w [facility] at 10:00 a.m and several conversation were had. Family and patient updated. On Cardene to keep [id number]. Monitor neuro checks q1hrs. Estefani to be managed by nephrology , urine electrolytes and labs pending . Urine output stable, no need for HD yet. pt remains critically ill. cc time 72 min
--- NOTE | 2016-09-14 13:00 | CP.PCM.DIS ---
Provider - Provider Date of Admission: 09/13/16 11:46 Attending physician: Patsy Mitchell MD Primary care physician: Evita Swann MD Time Spent in preparation of Discharge (in minutes): 40 Hospital Course - Lab Results Lab Results: Most Recent Lab Values WBC 13.3 10^3/ul (4.5-11.0) H 09/14/16 04:00 RBC 3.58 10^6/uL (3.5-6.1) 09/14/16 04:00 Hgb 10.6 gm/dL (12.0-16.0) L 09/14/16 04:00 Hct 29.1 % (36.0-48.0) L 09/14/16 04:00 MCV 81.3 fL (80.0-105.0) 09/14/16 04:00 MCH 29.6 pg (25.0-35.0) 09/14/16 04:00 MCHC 36.4 g/dl (31.0-37.0) 09/14/16 04:00 RDW 18.1 % (11.5-14.5) H 09/14/16 04:00 Plt Count 166 10^3/uL (120.0-450.0) 09/14/16 04:00 Gran % 82.3 % (50.0-68.0) H 09/14/16 04:00 Lymph % (Auto) 9.8 % (22.0-35.0) L 09/14/16 04:00 [place] % (Auto) 7.5 % (1.0-6.0) H 09/14/16 04:00 Eos % (Auto) 0.2 % (1.5-5.0) L 09/14/16 04:00 Baso % (Auto) 0.2 % (0.0-3.0) 09/14/16 04:00 Gran # 10.96 (1.4-6.5) H 09/14/16 04:00 Lymph # 1.3 (1.2-3.4) 09/14/16 04:00 [place] # 1.0 (0.1-0.6) H 09/14/16 04:00 Eos # 0.0 (0.0-0.7) 09/14/16 04:00 Baso # 0.02 K/mm3 (0.0-2.0) 09/14/16 04:00 PT 10.7 Seconds (9.9-11.8) 09/13/16 10:30 INR 0.99 (0.93-1.08) 09/13/16 10:30 APTT 26.4 Seconds (23.7-30.8) 09/13/16 10:30 Sodium 131 mmol/L (132-148) L 09/14/16 04:00 Potassium 2.5 mmol/L (3.6-5.0) L* 09/14/16 04:00 Chloride 89 mmol/L (98-107) L 09/14/16 04:00 Carbon Dioxide 25 mmol/L (21-33) 09/14/16 04:00 Anion Gap 20 (10-20) 09/14/16 04:00 BUN 62 mg/dL (7-21) H 09/14/16 04:00 Creatinine 4.1 mg/dL (0.5-1.4) H 09/14/16 04:00 Est GFR ( Amer) 14 09/14/16 04:00 Est GFR (Non-Af Amer) 12 09/14/16 04:00 Random Glucose 128 mg/dL (70-110) H 09/14/16 04:00 Hemoglobin A1c 4.2 % (4.2-6.5) 09/13/16 19:51 Calcium 9.4 mg/dL (8.4-10.5) 09/14/16 04:00 Phosphorus 5.9 mg/dL (2.5-4.5) H 09/14/16 04:00 Magnesium 1.9 mg/dL (1.7-2.2) 09/14/16 04:00 Iron 37 ug/dL (45-180) L 09/14/16 10:00 TIBC 341 ug/dL (265-497) 09/14/16 10:00 % Saturation 11 % (20-55) L 09/14/16 10:00 Total Bilirubin 0.8 mg/dL (0.2-1.3) 09/14/16 04:00 AST 37 U/L (15-39) 09/14/16 04:00 ALT 23 U/L (7-56) 09/14/16 04:00 Alkaline Phosphatase 58 U/L (38-133) 09/14/16 04:00 Lactate Dehydrogenase 1121 U/L (333-699) H 09/14/16 03:00 Total Creatine Kinase 148 U/L (35-230) 09/14/16 03:00 Troponin I 1.43 ng/mL H* D 09/14/16 10:00 NT-Pro-B Natriuret Pep 79715 pg/mL (0-450) H 09/13/16 10:30 Total Protein 7.7 g/dL (5.8-8.3) 09/14/16 04:00 Albumin 3.9 g/dL (3.0-4.8) 09/14/16 04:00 Globulin 3.8 gm/dL 09/14/16 04:00 Albumin/Globulin Ratio 1.0 (1.1-1.8) L 09/14/16 04:00 Triglycerides 112 mg/dL (35-160) 09/13/16 10:30 Cholesterol 274 mg/dL (130-200) H 09/13/16 10:30 LDL Cholesterol Direct 106 mg/dL (0-129) 09/13/16 10:30 HDL Cholesterol 131 mg/dL (29-60) H 09/13/16 10:30 TSH 3rd Generation 3.56 mIU/mL (0.46-4.68) 09/13/16 10:30 Beta HCG, Quant < 2.39 mIU/mL (0-6.15) 09/13/16 10:30 Ur Random Creatinine 102 mg/dL 09/14/16 01:00 Ur Random Urea Nitrogn 482 mg/dL 09/14/16 01:00 Urine Opiates Screen Negative (NEGATIVE) 09/14/16 01:00 Urine Methadone Screen Negative (NEGATIVE) 09/14/16 01:00 Ur Barbiturates Screen Negative (NEGATIVE) 09/14/16 01:00 Ur Phencyclidine Scrn Negative (NEGATIVE) 09/14/16 01:00 Ur Amphetamines Screen Negative (NEGATIVE) 09/14/16 01:00 U Benzodiazepines Scrn Negative (NEGATIVE) 09/14/16 01:00 U Oth Cocaine Metabols Negative (NEGATIVE) 09/14/16 01:00 U Cannabinoids Screen Positive (NEGATIVE) H 09/14/16 01:00 Discharge Exam - Head Exam Head Exam: ATRAUMATIC, NORMOCEPHALIC Discharge Plan - Follow Up Plan Condition: CRITICAL Disposition: OTHER INSTITUTION Additional Instructions: Patient is being transferred to [facility] for possible retinal detachment surgery and medical management. Referrals: Evita Swann MD [Primary Care Provider] -
--- NOTE | 2016-09-14 13:51 | CON ---
DATE: 09/14/2016 REASON FOR CONSULTATION: Chest pain. HISTORY OF PRESENT ILLNESS: The patient is a 51-year-old female who has history of hypertension, but has not been taking medications for years. She presents because of sharp persisten t chest pain and nausea and vomiting. The patient denies any associated diaphoresis. The patient is unaware of any prior cardiac history in the past. The patient's chest pain subsided. The patient w as noted to have malignant hypertension, was admitted to the ICU. The patient denies any headache, d izziness, but did report imbalance. The patient denies any speech difficulty. SOCIAL HISTORY: The patient is a smoker, drinker and marijuana user. 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 MEDICATIONS: Cardene infusion, aspirin 81 mg once a day, morphine sulfate 2 mg intravenously q.4 isiah rs p.r.n., Norvasc 5 mg once a day, potassium chloride intravenous infusion, Zofran 4 mg intravenous q.6 hours p.r.n. for nausea, vomiting. PHYSICAL EXAMINATION: GENERAL: The patient is a middle-aged female who does not appear to be in acute distress. VITAL SIGNS: Blood pressure 188/117, heart rate 87, temperature 98.5, respirations 20. HEENT: Pale conjunctivae. CHEST: Clear. HEART: S1, S2 regular. ABDOMEN: Soft. EXTREMITIES: No edema. LABORATORY DATA: CBC: WBC 13.3, hemoglobin 10.6, hematocrit 29.1, platelet count 166,000. SMA-7 to day: Sodium 131, potassium 2.5, chloride 89, CO2 of 25, glucose 128. BUN 62, creatinine 4.1. Tropo nins were 0.28 and 1.98. PT, PTT are within normal limits. Urine drug screen is positive for cannab inoids. EKG revealed sinus rhythm at a rate of 83, LVH with repolarization changes and prolonged QT interval. Renal ultrasound was consistent with medical renal disease. Echocardiograph study reveale d mild concentric LVH, ejection fraction in the range of 35% to 40%, [id number] hypokinesis of the apical anterior wall, trace aortic insufficiency. Brain MRI, extensive signal abnormality in the brainstem and the basal ganglia bilaterally, particularly in the ____, suspicious for edema. There is also extensive white matter signal abnormality in the cerebral hemispheres bilaterally. Findings of unclear etiology but could be secondary to acute encephalopathy including infectious, inflammatory or hypertensive encephalopathy, extensive acute demyelinating disease, a toxic insult or an underlyi ng metabolic abnormality. There is no evidence of acute infarct or acute hemorrhage. Chest CT scan without contrast revealed no evidence of acute process and no evidence of thoracic aortic aneurysm, m ild cardiomegaly. ASSESSMENT: 1. Sharp chest pain and borderline troponin elevation. 2. Cardiomyopathy, most likely hypertensive; however, ischemic ____ cannot be completely excluded. 3. Malignant hypertension. 4. Hypokalemia. RECOMMENDATIONS: I did my own review of the chest CT scan and there is no evidence of dilatation or a flap to suggest underlying dissection. Clinically, the patient had no back pain and denied any ass ociated diaphoresis. The borderline troponin elevation ____ present at least ongoing cerebral acute findings. A non-ST elevation myocardial infarction cannot be completely ruled out. Continue current IV Cardene, aspirin, Norvasc, potassium chloride infusion. The patient is not a suitable candidate for either KALYAN inhibitors or Aldactone therapy. Start Coreg at 3.125 mg twice a day. Misael Carson MD cc: [id number] TT: 09/14/2016 13:51:16 Confirmation # [id number] Dictation # [id number] sn
--- NOTE | 2016-09-14 14:39 | CP.PCM.PN ---
<RamseyLuciano - Last Filed: 09/15/16 08:59> Subjective - Date & Time of Evaluation Date of Evaluation: 09/14/16 Time of Evaluation: 14:39 - Subjective Subjective: PGY-1 Medicine Progress Note for Dr. Mitchell Patient seen and examined at bedside. No acute event overnight. Patient stated that headache and dizziness has improved. Patient reported that L eye still has no vision. Overal, she stated she is feeling better than yesterday. The plan was to transfer patient to [facility]. ICU attending reached out to ICU at [facility] and they said they could take patient if opthlamologist agreed. Ultimately, he refused adn stated patient was not stable for any procedure to repair retinal detachment at this time. Denied fever/chills , cp, sob, palpitations, n/v/d, incontinence, numbness/tingling. Objective - Vital Signs/Intake and Output Vital Signs (last 24 hours): Temp Pulse Resp BP Pulse Ox 99.4 F 88 20 172/94 H 99 09/14/16 12:00 09/14/16 14:14 09/14/16 14:14 09/14/16 14:14 09/14/16 14:14 Intake and Output: 09/14/16 09/14/16 06:59 18:59 Intake Total 1900 Output Total 250 Balance 1650 - Medications Medications: Current Medications Amlodipine Besylate (Norvasc) 5 mg PO DAILY [facility] Last Admin: 09/14/16 09:18 Dose: 5 mg Aspirin (Ecotrin) 81 mg PO DAILY [facility] Last Admin: 09/14/16 09:18 Dose: 81 mg Carvedilol (Coreg) 3.125 mg PO BID [facility] Last Admin: 09/14/16 11:16 Dose: 3.125 mg Docusate Sodium (Colace) 100 mg PO DAILY [facility] Last Admin: 09/14/16 09:18 Dose: 100 mg Famotidine (Pepcid) 20 mg PO DAILY [facility] Last Admin: 09/14/16 09:19 Dose: 20 mg Nicardipine HCl (Cardene Iv Premix) 200 mls @ 50 mls/hr IV .Q4H PRN; Protocol; 5 MG/HR PRN Reason: TITRATE PER MD ORDER Last Titration: 09/14/16 05:05 Dose: 5 mg/hr Potassium Chloride 20 meq/ (Sodium Chloride) 1,010 mls @ 100 mls/hr IV .Q10H6M [facility] Last Admin: 09/13/16 23:00 Dose: 100 mls/hr Morphine Sulfate (Morphine) 2 mg IVP Q4H PRN PRN Reason: Pain, moderate (4-7) Last Admin: 09/14/16 09:35 Dose: 2 mg Ondansetron HCl (Zofran Inj) 4 mg IVP Q6H PRN PRN Reason: Nausea/Vomiting Last Admin: 09/13/16 23:02 Dose: 4 mg - Labs Labs: 09/14/16 04:00 09/14/16 04:00 PT 10.7 Seconds (9.9-11.8) 09/13/16 10:30 INR 0.99 (0.93-1.08) 09/13/16 10:30 APTT 26.4 Seconds (23.7-30.8) 09/13/16 10:30 - Constitutional Appears: No Acute Distress - Head Exam Head Exam: ATRAUMATIC, NORMOCEPHALIC - Eye Exam Eye Exam: EOMI, Normal appearance - ENT Exam ENT Exam: Mucous Membranes Moist - Respiratory Exam Respiratory Exam: Clear to Ausculation Bilateral, NORMAL BREATHING PATTERN - Cardiovascular Exam Cardiovascular Exam: REGULAR RHYTHM, +S1, +S2 - GI/Abdominal Exam GI & Abdominal Exam: Soft, Tenderness (mild), Normal Bowel Sounds. absent: Distended, Firm, Guarding, Rebound - Extremities Exam Extremities Exam: Normal Capillary Refill - Back Exam Back Exam: absent: CVA tenderness (L), CVA tenderness (R) - Neurological Exam Neurological Exam: Alert, Awake, CN II-XII Intact, Oriented x3 - Psychiatric Exam Psychiatric exam: Normal Affect, Normal Mood - Skin Skin Exam: Dry, Intact, Normal Color, Warm Assessment and Plan - Assessment and Plan (Free Text) Plan: 51 F with PMH of HTN, sickle cell trait, Glaucoma presented to [facility] for complaint of Chest pain, SOB, dizziness/lightheadedness 1. Hypertensive Emergency ECHO: LV normal size, mild concentric LVH, mild-mod impaired systolic function EF35-40, mild-mod hypokinesis apical anterior wall, mild mitral regurg, trace aortic regurg, mild tricuspid regurg Renal US: Medical renal disease, 1.6 cm simple cyst on upper pole of r kidney ( see full report). MRI Brain: extensice signal abnormality in brainstem and basal ganglia bilaterally, particularly thalami, suspicious for edema. Extensive white matter signal abnormality in cerebral hemispheresbilaterally. Uncertain etiology, could be hypertensive/infectious/inflammatory encephalopathy extensivve demyelinating disease, toxic insult, or underlying metabolic abnormality (see full report). CT head: extensive hypodensity in the perventricular white matter, sheyla, and cerebellar white matter. Could represent vasogenic edema related to HTN or chronic microvascular disease (see full report). CT chest: mild cardiomegaly, very mild emphysematous changes in lung apices bilaterally (see full report). CT abd/pelvos: Right ovarian cyst (see full report). Carotid duplex: bilateral 20-39% stenoses of proximal ICA, antegrade flow in both vertebral arteries (see full report). ASA 81 mg PO daily Norvasc 5 mg PO daily Nicardipine drip Nephro consult, Dr. Mcgarry, help appreciated Opthlamology consult, Dr. Bae, help appreciated Cardio consult, Dr. Carson, help appreciated Cardiac enzymes 0.20-->0.28-->1.98-->1.43 f/u daily labs 2. Chest Pain ECHO: LV normal size, mild concentric LVH, mild-mod impaired systolic function EF35-40, mild-mod hypokinesis apical anterior wall, mild mitral regurg, trace aortic regurg, mild tricuspid regurg Carotid duplex: bilateral 20-39% stenoses of proximal ICA, antegrade flow in both vertebral arteries (see full report). ASA 81 mg PO daily Norvasc 5 mg PO daily Nicardipine drip Nephro consult, Dr. Mcgarry, help appreciated Opthlamology consult, Dr. Bae, help appreciated Cardio consult, Dr. Carson, help appreciated Cardiac enzymes 0.20-->0.28-->1.98-->1.43 f/u daily labs BNP 79592 3. ESTEFANI Bun/Cr: 62/4.1 NS with KCL 20 mEq 100 cc/hr Renal US: Medical renal disease, 1.6 cm simple cyst on upper pole of r kidney ( see full report). 4. Dyspnea ECHO: LV normal size, mild concentric LVH, mild-mod impaired systolic function EF35-40, mild-mod hypokinesis apical anterior wall, mild mitral regurg, trace aortic regurg, mild tricuspid regurg Carotid duplex: bilateral 20-39% stenoses of proximal ICA, antegrade flow in both vertebral arteries (see full report). ASA 81 mg PO daily Norvasc 5 mg PO daily Nicardipine drip Nephro consult, Dr. Mcgarry, help appreciated Opthlamology consult, Dr. Bae, help appreciated Cardio consult, Dr. Carson, help appreciated Cardiac enzymes 0.20-->0.28-->1.98-->1.43 f/u daily labs BNP 75850 5. Hypokalemia K+ 2.5 Potassium chloride 20 mEq IVPB x 3, 10 mEq x 2, 40 mEq PO x 1 NS with KCL 20 mEq 100 cc/hr 6. Glaucoma Tropicamide 1% 1 drop OU <Patsy Mitchell - Last Filed: 09/16/16 17:12> Objective - Vital Signs/Intake and Output Vital Signs (last 24 hours): Temp Pulse Resp BP Pulse Ox 97.8 F 70 18 167/95 H 100 09/16/16 16:00 09/16/16 16:33 09/16/16 16:39 09/16/16 16:00 09/16/16 16:00 Intake and Output: 09/16/16 09/16/16 06:59 18:59 Intake Total 1350 Output Total 300 Balance 1050 - Medications Medications: Current Medications Amlodipine Besylate (Norvasc) 10 mg PO DAILY [facility] Last Admin: 09/16/16 10:30 Dose: Not Given Aspirin (Ecotrin) 81 mg PO DAILY [facility] Last Admin: 09/16/16 10:32 Dose: 81 mg Atorvastatin Calcium (Lipitor) 20 mg PO DIN [facility] Last Admin: 09/15/16 17:47 Dose: 20 mg Carvedilol (Coreg) 6.25 mg PO BID [facility] Last Admin: 09/16/16 10:29 Dose: Not Given Clonidine HCl (Catapres) 0.2 mg PO TID [facility] Last Admin: 09/16/16 16:47 Dose: Not Given Docusate Sodium (Colace) 100 mg PO DAILY [facility] Last Admin: 09/16/16 10:32 Dose: 100 mg Famotidine (Pepcid) 20 mg PO DAILY [facility] Last Admin: 09/16/16 10:32 Dose: 20 mg Hydralazine HCl (Apresoline) 50 mg PO TID [facility] Last Admin: 09/16/16 16:47 Dose: Not Given Ceftriaxone Sodium (Rocephin 1 Gram Ivpb) 100 mls @ 100 mls/hr IVPB DAILY [facility] PRN Reason: Protocol Last Admin: 09/16/16 10:38 Dose: 100 mls/hr Iron Sucrose 200 mg/ Sodium (Chloride) 110 mls @ 110 mls/hr IVPB DAILY [facility] Stop: 09/21/16 10:01 Last Admin: 09/16/16 10:40 Dose: 110 mls/hr Isosorbide Mononitrate (Imdur) 30 mg PO DAILY [facility] Last Admin: 09/16/16 10:29 Dose: Not Given Lorazepam (Ativan) 0.5 mg IVP Q4H PRN; Protocol PRN Reason: Anxiety Morphine Sulfate (Morphine) 2 mg IVP Q4H PRN PRN Reason: Pain, moderate (4-7) Last Admin: 09/14/16 18:29 Dose: 2 mg Polyethylene Glycol (Miralax) 17 gm PO DAILY PRN PRN Reason: Constipation Last Admin: 09/15/16 10:33 Dose: 17 gm - Labs Labs: 09/16/16 06:20 09/16/16 06:20 PT 10.7 Seconds (9.9-11.8) 09/13/16 10:30 INR 0.99 (0.93-1.08) 09/13/16 10:30 APTT 26.4 Seconds (23.7-30.8) 09/13/16 10:30 Attending/Attestation - Attestation I have personally seen and examined this patient.: Yes I have fully participated in the care of the patient.: Yes I have reviewed all pertinent clinical information, including history, physical exam and plan: Yes Notes (Text): I have seen and examined the patient with the resident. Agree with the above note with the following additions/ exceptions: Briefly this is 51 year old female with history of HTN, non compliant with medications, sickle cell trait, glaucoma, marijuana use, former alcohol abuser, OTC motrin use for headache on regular basis who presented with hypertensive emergency (headache, blurry vision of left eye, chest pain, CARY, vomiting and found to have dehydration, hyponatremia, hypokalemia, elevated troponin and acute kidney injury. Abd pelvis CT ruled out aortic dissection. Denies any headache or N/V. States that her dizzines has improved. There is left eye vision loss. As per opthalmologist , patient has retinal detachement. Calls placed to [facility] to transfer the patient. Initially they were agreeable but later called back stating that patient is too unstable for any kind of eye surgery at this time therefore patient was not transferred. BP has improved. Continue nicardipine drip. Patient has leukocytosis.. Cultures and procal pending. Echo showed EF of 35-40% . Renal ultrasound showed medical renal disease. MRI brain showed vasogenic edema most likely PRES syndrome. Troponins are elevated most likely due to hypertensive emergency and renal impairement. No plan for cardiac cath so far. Work up for secondary causes of HTN pending. Dr Patsy Mitchell
[2016-09-14] MEDS ORDERED: Potassium Chloride 20 mEq ER Tab PO ONE (15:16)
--- NOTE | 2016-09-14 16:33 | CON ---
DATE: 09/14/2016 CHIEF COMPLAINT: Confusion and abnormal MRI. HISTORY OF PRESENTING ILLNESS: This is a 51-year-old woman with a past medical hist ory of hypertension for which she has not been taking any antihypertensive therapy for the past 3 yea rs. She came in with a baseline systolic blood pressure of 300/160 mmHg. She also has a history of tobacco and alcohol use and marijuana use. She has been using daily nonsteroidal anti-inflammatory d rugs due to self-medicating for her headaches. She came in with nausea, vomiting, headaches as well as chest pain and is noted to have blood pressures as high as 300/[address] head showed sympt oms and signs consistent with vasogenic edema from her uncontrolled hypertension, which is ____ with her hypertensive urgency. She underwent an MRI of the brain which shows extensive signal abnormality in the brainstem and basal ganglia bilaterally, particularly in the thalamus, suspicious for edema. There is also extensive white matter signal abnormality in the cerebral hemispheres bilaterally as w ell as in the thalamus, ____, thalamus, both sides brainstem and basal ganglia. There is no evidence of having any acute infarct or hemorrhage. It was also found that she has retinal detachment in the left eye and she is seeing halos out of the left eye. She is mildly confused, but follows simple co mmands, moving all extremities equally. Able to lift up both arms and both legs at the same time wit hout any pronator drift. No paresthesias in the extremities. REVIEW OF SYSTEMS: A 14-point review of systems is negative except for the HPI. PAST MEDICAL HISTORY: Significant for hypertension, has not been taking medications for the past 3 y ears. No history of any prior seizures. MEDICATIONS: Medication that patient has been taking prior to admission were ibuprofen as well as Al astrid p.r.n. basis. She was not on any antihypertensive medications the past few years. ALLERGIES: No known drug allergies. SOCIAL HISTORY: Notable for patient drinking at least 3 cans of beer per day. She states that she n o longer drinks in the past few days because she was having vomiting. She smokes cigarettes as well as marijuana. Denies any other types of drugs. FAMILY HISTORY: Mother has type 2 diabetes mellitus, hypertension, and end-stage renal disease for w guerah she is on hemodialysis. PHYSICAL EXAMINATION: VITAL SIGNS: Temperature afebrile, pulse rate of 88, blood pressure 172/94, respiratory rate of 22, oxygen saturation 100% via room air. GENERAL: The patient is sitting up in bed in no acute distress. HEENT: Atraumatic, normocephalic. PERRLA. Extraocular muscles intact. NECK: Supple, no JVD, no adenopathy noted. LUNGS: Clear to auscultation. No adventitious sounds. HEART: S1, S2, normal rate and rhythm. No murmurs, rubs, or gallops. ABDOMEN: Soft, nontender, nondistended. Bowel sounds present. EXTREMITIES: No clubbing, no cyanosis. Peripheral pulses 2+ felt bilaterally. NEUROLOGIC: The patient is alert, orientated to person, place, month and year. Speech is fluent, wi thout any errors. Cranial nerves II-XII intact. Recall after 5 minutes is 2/3. Has a poor attentio n span and slow thought process. MOTOR: Normal tone, normal bulk of muscle. Moves all extremities equally. No pronator drift seen. SENSORY: Light touch, pinprick, proprioception, and vibration intact. DTRs are 2+ throughout. COORDINATION: [id number] intact. Toes are upgoing bilaterally. Gait is deferred for now. LABORATORY DATA: Sodium is 131, potassium 2.5, chloride of 89, carbon dioxide 25, BUN of 62, creatin ine 4.1. Random glucose of 128. Has elevated troponins, the last one being 1.43. 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 Noted to have some elev ated blood pressures of 300/160 mmHg. Her MRI of the brain showed extensive signal abnormality in th e brainstem, basal ganglia bilaterally, particularly the thalamus, suspicious for edema. There is ex tensive white matter signal abnormality in the cerebral hemispheres bilaterally. Her overall present ation is consistent with posterior reversible encephalopathy syndrome, which is commonly caused by hy pertensive emergency. She also has a left retinal detachment for which she out of the left eye, she is seeing halos. She also has acute kidney injury, likely from hypertension as well as daily nonster oidal anti-inflammatory drug use. At this time, recommend: 1. Hydrate the patient with sodium chloride at 100 mL per hour given acute kidney disease. 2. Slowly drop her blood pressures 20% at a time to an average blood pressure of 120-130 mmHg, that is the target. 3. Aspirin 81 mg p.o. daily for stroke prevention. 4. Could consider mannitol if necessary due to the vasogenic edema from underlying hypertensive levon gency. 5. Will need to be transferred to a retinal specialist at [facility] to repair the left retinal detachment since she is seeing halos out of the left eye. 5. Follow up with nephrology in regards to her acute kidney injury and continue with current present medical management. We will hold off seizure meds for now since the patient is not having any seizu re-like activity. Her prognosis is guarded. The patient's with posterior reversible encephalopathy syndrome usually re verse in about anywhere from 3-6 months or even it takes up to a year for MRI changes to change. At this time, her EEG showed bilateral cerebral dysfunction, no evidence of any epileptiform activity, a nd continue with current present medical management. Thank you for this consult. Herbert Anne MD cc: [phone] TT: 09/14/2016 16:33:32 Confirmation # [id number] Dictation # [id number] sn
--- NOTE | 2016-09-14 16:51 | US ---
PROCEDURE: Bilateral renal artery duplex ultrasound. CLINICAL HISTORY: Renal artery stenosis. Uncontrolled hypertension. Evaluate for renovascular hypertension. PHYSICIAN(S): Charlie Donis M.D. TECHNIQUE: Duplex sonography with color-flow Doppler was used to evaluate the visualized segments of the main renal arteries. The patient was evaluated in a fasting state. Imaging in a supine and decubitus position was performed. Limited evaluation of the arcuate waveforms and resistive indices were performed. FINDINGS: The overall quality of the study is adequate. The kidneys are normal in size, shape, and location. The right kidney measures 10.5cm in length and the left kidney measures 9.4cm in length. No solid renal masses, abnormal calcifications, or hydronephrosis is seen. The renal parenchyma is normal in thickness but echogenic in appearance. The main right renal artery is well visualized from the aorta to the hilum. The peak systolic velocity in the right main renal artery is 119 cm/sec. This is consistent with a 0 to 49% stenosis in the main right renal artery. The arcuate waveforms are normal. The resistive index is normal. The main left renal artery is only visualized in segments from its origin to the renal hilum. The peak systolic velocity in the main left renal artery is 99cm/sec. This corresponds to a 0 to 49% stenosis in the main left renal artery. The arcuate waveforms and resistive indices are normal. IMPRESSION: 1. The main renal arteries are fairly well visualized. 2. No sonographically significant stenosis is identified. 3. The kidneys are normal and symmetric in size. There are no solid renal masses, abnormal calcifications or hydronephrosis noted. The renal parenchyma is normal in thickness but echogenic.
[2016-09-14] MEDS: Potassium Chloride 10 mEq 100 ML IVPB SCH ×2 (16:57→19:46)
[2016-09-14 17:36] LABS: FOLATE > 20.0 ng/mL
[2016-09-14 18:39] LABS: ADD MANUAL DIFF? NO
[2016-09-14 18:41] LABS: BASO # 0.02 K/mm3 (0.0-2.0); BASO % 0.1 % (0.0-3.0); EOS % 0.1 % (1.5-5.0); GRAN # 12.99 (1.4-6.5); GRAN % 85.4 % (50.0-68.0); HEMATOCRIT 28.9 % (36.0-48.0); LYMPH # 0.8 (1.2-3.4); LYMPH % 5.5 % (22.0-35.0); MEAN CELL VOLUME 82.3 fL (80.0-105.0); MEAN CORPUSCULAR HEMOGLOBIN 29.9 pg (25.0-35.0); MEAN CORPUSCULAR HGB CONC 36.3 g/dl (31.0-37.0); MONO # 1.4 (0.1-0.6); MONO % 8.9 % (1.0-6.0); PLATELET COUNT 172 10^3/uL (120.0-450.0); RED CELL DISTRIBUTION WIDTH 18.5 % (11.5-14.5); WHITE BLOOD COUNT 15.2 10^3/ul (4.5-11.0)
[2016-09-14 18:53] LABS: ALB/GLOB RATIO 1.1 (1.1-1.8); CALCIUM 9.1 mg/dL (8.4-10.5); POTASSIUM 3.6 mmol/L (3.6-5.0); TOTAL PROTEIN 7.1 g/dL (5.8-8.3)
--- NOTE | 2016-09-14 19:01 | PN ---
DATE: 09/14/2016 SUBJECTIVE: The patient was seen in the intensive care unit. When I saw her, she remained on a nicardipine infusion. She continued to complain of blurry vision, as well as headache, but there was no longer any nausea or vomiting. Numerous family members were present at bedside. The patient remains on a nicardipine infusion as well. She was complaining of some weakness in her right lower extremity distal to her knee. As stated, there was no nausea or vomiting, but the patient did complain of headaches with persistent blurry vision. OBJECTIVE: VITAL SIGNS: Blood pressure is 180/93 with a minimum blood pressure in the last 24-hour period of 130/80 and a maximum of 198/110, heart rate is 88, but has ranged from the 80s-90s in the last 24-hour period and monitoring showing sinus rhythm. Oral temperature is 98.8 degrees and the patient has been afebrile. Respiratory rate is 20, but has ranged from 17-34 breaths per minute in the last 24-hour period, and oxygen saturation is 100%, but has ranged from 86%-100% on room air. I's and O's in the last 24-hour period are 3300/250. The remainder of the exam was as follows: HEENT: The patient appeared to be normocephalic and was atraumatic. There was no sinus tenderness. There was no jugular venous distention that I could appreciate. CHEST: Lung francois on my exam are grossly clear without any rales, rhonchi or wheezing. Diaphragmatic excursion as well as airflow into both lung francois was bilaterally symmetrical. CARDIAC: Had a regular rate and rhythm without any rubs or gallops. There were no heaves and the PMI was not displaced laterally. ABDOMEN: Soft, mildly distended, but nontender. There was no rebounding, guarding or rigidity. There was no hepatosplenomegaly noted. EXTREMITIES: Had trace edema. NEUROLOGIC: The patient had decreased vision as described above. VASCULAR: Had no bruits. SKIN: Intact. GENITOURINARY: Had no suprapubic tenderness. LABORATORY STUDIES: White count is 13.3, H and H is 10.6/29.1 with a platelet count of 166,000. There are 82% neutrophils, 10% lymphocytes, 8% monocytes. Sodium is 131, potassium is 2.5, chloride is 89, bicarbonate 25, BUN/creatinine 62/4.1 with a glucose of 128. Calcium is 9.4, phosphorus is 5.9, total protein/ albumin is 7.7/3.9, troponin I has increased to 1.98. AST/ALT is 37/23, alkaline phosphatase is 58. Urine toxicology is positive only for cannabinoids. Renal ultrasound revealed the right kidney to be 10.4 cm with diffuse increase in cortical echogenicity. Her left kidney was 11.4 cm with diffuse increase in cortical echogenicity. There was no obvious pathology with the exception of 1.6 cm simple cyst in the upper pole of the right kidney. Renal artery Doppler did not reveal any evidence of renal artery stenosis. MRI of the patient's brain revealed extensive signal abnormality in the brainstem and basal ganglia bilaterally, particularly the thalamus suspicious for edema, thought perhaps secondary to her hypertensive encephalopathy. IMPRESSION AND PLAN: The patient is a 51-year-old female with chronic hypertension, but thoroughly noncompliant with antihypertensive therapy for 3 years or so, daily tobacco, alcohol and marijuana use, daily use of Aleve and Advil for headaches, outpatient blood pressure that has reached as high as 300 mmHg, according to the patient, when she has been seen by her primary care physician who was admitted with nausea, vomiting, headaches, chest pain and noted to have a blood pressure of 300/160. Imaging of her brain is consistent with hypertensive encephalopathy. Additionally, she has a probable vitreous hemorrhage in the left eye as well, and retinal detachment also. She is also noted to have an elevated troponin which could be another manifestation of her hypertensive emergency, in addition to hypertensive encephalopathy described above. Of note, the patient is also noted to have acute kidney injury that is oliguric in the setting of anemia (hemoglobin decreased from 12.5-10.6) decreasing platelets from 143-166 and an elevated LDH of 1121, raising the possibility of malignant hypertension as a cause of her acute kidney injury. Haptoglobin is still pending. 1. The patient remains on a Cardene infusion and we will titrate this medication up to continue to decrease her mean arterial pressure. 2. Given the hypertensive emergency described above and hemorrhage into the left eye, I agree with neurology in decreasing her blood pressure ultimately to less than 130/80, but gradually so the patient can autoregulate. 3. Given the fact that she is oliguric, I would hold off on giving her mannitol at this time. 4. I agree with transferring the patient to [facility], whereby she can be seen by a retinal specialist for surgery for her retinal detachment. 5. The patient has posterior reversible encephalopathy syndrome. EEG revealed bilateral cerebral dysfunction, but there is no evidence of epileptiform activity and at present, she is not being started on seizure medication. 6. The patient remains hypokalemic. Plasma aldosterone as well as rennin activity was sent to the lab. Additionally pheochromocytoma workup was initiated also. I agree with continuing the patient on intravenous fluids and she remains on normal saline with 20 mEq of potassium chloride per liter. 7. In addition to the nicardipine infusion, I would also start this patient on spironolactone 25 mg orally twice daily for now (despite her increasing creatinine), amlodipine 5 mg orally daily, carvedilol 3.125 mg orally twice daily as well and we will continue to titrate these medications up with a goal of perhaps decreasing her Cardene infusion rate. 8. With respect to the patient's elevated troponin, given the vitreous hemorrhage and her imminent eye surgery at this point, she is not on any anticoagulation. Echocardiogram did reveal mild LVH with decreased left ventricular systolic function and an ejection fraction of 35%-40%. Cardiology consultation is appreciated. There is no evidence of aortic dissection at this time. She does remain on aspirin, but is not on any anticoagulant therapy such as heparin at this time. 9. For deep vein thrombosis prophylaxis, continue sequential compression devices, but not subcutaneous heparin. 10. For gastrointestinal prophylaxis, continue famotidine 20 mg intravenously daily. 11. We will need to monitor the patient closely to see if she requires hemodialysis, but at present, she does not since her symptomatology is not uremic. 12. We await the results of the urinalysis, but certainly if there is any microscopic hematuria or any proteinuria, we will initiate a workup for glomerulonephritis since this can also result in acute kidney injury and uncontrolled hypertension with hypertensive emergency; however, given the fact that the patient states that as an outpatient, her systolic blood pressure was routinely close to 300 mmHg makes me doubt this to be the case, that she will have glomerulonephritis. The above was discussed with the patient as well as numerous family members present at bedside. Review of systems, past medical history, social history and family history were all reviewed and there were no new changes. More than 35 minutes were spent in the care of this ICU patient today. Of note , the patient's sister stated that her mother had a similar such presentation at approximately age of 50 and ultimately required hemodialysis. Israel Mcgarry MD, PEPE cc: [id number] TT: 09/14/2016 19:00:34 Confirmation # [id number] Dictation # [id number] [address]
[2016-09-14] MEDS ORDERED: Morphine 2 mg/ml ISec IVP STA (20:02)
[2016-09-14] MEDS: Nicardipine 20 MG/200 ML 200 ML IV PRN (22:20)
[2016-09-14] MEDS ORDERED: Nitroglycerin 2% Ointment Foilpak UD TOP PRN (23:34)
[2016-09-14 23:42] LABS: PH,URINE 6.5 (4.7-8.0); URINE BILIRUBIN NEGATIVE (NEGATIVE); URINE BLOOD LARGE (NEGATIVE); URINE GLUCOSE (UA) NEGATIVE (NEGATIVE); URINE KETONE NEGATIVE (NEGATIVE); URINE LEUKOCYTE ESTERASE LARGE Leu/uL (NEGATIVE); URINE PROTEIN 100 mg/dL (<30 mg/dL); URINE UROBILINOGEN 0.2 E.U./dL (<1 E.U./dL)
[2016-09-14 23:46] LABS: URINE APPEARANCE CLOUDY (CLEAR); URINE COLOR YELLOW (YELLOW)
[2016-09-15 00:02] LABS: URINE BACTERIA MANY (NEG); URINE EPITHELIAL CELLS 0 - 2 /hpf (0-5); URINE WBC TNTC /hpf (0-6)
[2016-09-15] MEDS: Nicardipine 20 MG/200 ML 200 ML IV PRN ×3 (01:56→07:44)
[2016-09-15 05:39] LABS: BASO # 0.02 K/mm3 (0.0-2.0); BASO % 0.1 % (0.0-3.0); EOS % 0.2 % (1.5-5.0); GRAN # 15.35 (1.4-6.5); GRAN % 84.8 % (50.0-68.0); HEMATOCRIT 27.4 % (36.0-48.0); LYMPH % 5.6 % (22.0-35.0); MEAN CELL VOLUME 82.5 fL (80.0-105.0); MEAN CORPUSCULAR HEMOGLOBIN 29.5 pg (25.0-35.0); MEAN CORPUSCULAR HGB CONC 35.8 g/dl (31.0-37.0); MONO # 1.7 (0.1-0.6); MONO % 9.3 % (1.0-6.0); PLATELET COUNT 195 10^3/uL (120.0-450.0); RED CELL DISTRIBUTION WIDTH 18.4 % (11.5-14.5); WHITE BLOOD COUNT 18.1 10^3/ul (4.5-11.0)
[2016-09-15 06:05] LABS: BILIRUBIN,TOTAL 1.1 mg/dL (0.2-1.3); CALCIUM 8.9 mg/dL (8.4-10.5); POTASSIUM 4.2 mmol/L (3.6-5.0); TOTAL PROTEIN 7.1 g/dL (5.8-8.3)
[2016-09-15 06:49] LABS: ADD MANUAL DIFF? NO; TROPONIN I 2.24 ng/mL
--- NOTE | 2016-09-15 08:11 | EEG ---
DATE: 09/14/2016 CONDITION OF RECORDING: Drowsy EEG. DIAGNOSIS: Altered mental status. MEDICATIONS: Reviewed via nurse's reconciliation sheet. INTERPRETATION: A 16-channel international recording. The background activity is composed of 6-7cyc les per second. There is a limited amount of beta activity of 16-20 cycles per second seen in this r ecording. There is increased amount of theta activity of 5-7 cycles per second seen in this tracing. Drowsiness was characterized by mixed beta and theta activities. Sleep was characterized by vertex transient waves, sleep spindles, bilateral slowing activity. EKG artifact was seen throughout the r ecording. Photic stimulation showed no change in the tracing. No paroxysmal activity noted in this recording. CONCLUSION: This is an abnormal EEG due to presence of diffuse slowing throughout the electrode pole s consistent with bilateral cerebral dysfunction. No evidence of any epileptiform activity. Please clinically correlate. Herbert Anne MD cc: [id number] TT: 09/14/2016 17:13:17 Confirmation # [id number] Dictation # [id number] tn
--- NOTE | 2016-09-15 09:05 | CARD ---
APPROVED REPORT EKG Measurement Heart [id number] MN 130P53 [id number] <Conclusion> Normal sinus rhythm Possible Left atrial enlargement Left ventricular hypertrophy ST & T wave abnormality, consider lateral ischemia Abnormal ECG
[2016-09-15] MEDS ORDERED: Lidocaine 2% Inj (20ml) ONE (09:16)
[2016-09-15] MEDS ORDERED: Nitroglycerin 0.1 mg/hr Top Patch TD SCH (10:00)
[2016-09-15] MEDS: Sodium Chloride 0.9% 1,000 ML IV SCH ×2 (10:33→22:00)
[2016-09-15] MEDS: POLYETHYLENE GLYCOL 3350 17 GM/Dose PACKET PO PRN (10:33)
--- NOTE | 2016-09-15 10:33 | CP.CCUPN ---
<Melinda Ramirez - Last Filed: 09/15/16 10:29> CCU Subjective - Physician Review Events Since Last Encounter (Free Text): 09/15/16 07:29 Patient seen and examined bedside. No acute events overnight. Patient denies any CP, states her SOB, headache and dizziness have improved. Still has no vision in left eye. Denies back pain, abd pain, n/v, fevers, chills. Patient admits to constipation for the past 4 days. Patient was not transferred to [facility] yesterday as optho ultimately denied patient due to medical instability and non-emergent surgery since retinal detachment. 09/15/16 09:39 Patient has poor IV access, will need PICC line. Scheduled for this AM. Critical Care Time Spent (in minutes): 45 CCU Objective - Vital Signs / Intake & Output Vital Signs (Last 4 hours): Vital Signs Temp Pulse Resp BP Pulse Ox 09/15/16 09:06 79 19 171/90 H 96 09/15/16 09:00 79 168/115 H 100 09/15/16 08:00 97.7 F 80 32 H 171/100 H 100 09/15/16 07:55 78 27 H 09/15/16 07:00 77 17 159/90 H 100 Intake and Output (Last 8hrs): Intake & Output 09/14/16 09/15/16 09/15/16 22:59 06:59 14:59 Intake Total 2620 2150 Output Total 600 400 Balance 2019 1750 Weight 172 lb 5 oz Intake: IV 1900 2150 Right Antecubital 100 Cardene 600 850 IVF 1000 1200 K-rider 300 Oral 720 Output: Urine 600 400 Urethral (Taylor) 600 400 Other: Voiding Method Indwelling Catheter Indwelling Catheter - Physical Exam Head: Positive for: Atraumatic, Normocephalic Pupils: Positive for: PERRL (No vision left eye) Extroacular Muscles: Positive for: EOMI Conjunctiva: Positive for: Normal Mouth: Positive for: Moist Mucous Membranes Neck: Positive for: Normal Range of Motion Respiratory/Chest: Positive for: Clear to Auscultation, Good Air Exchange, Tender to Palpation (Tenderness to chest wall). Negative for: Respiratory Distress, Accessory Muscle Use Cardiovascular: Positive for: Regular Rate and Rhythm, Normal S1, S2. Negative for: Murmurs Abdomen: Positive for: Normal Bowel Sounds. Negative for: Tenderness, Distention, Peritoneal Signs Back: Positive for: Normal Inspection Upper Extremity: Positive for: Normal Inspection. Negative for: Cyanosis, Edema Lower Extremity: Positive for: Normal Inspection, NORMAL PULSES. Negative for: Edema, CALF TENDERNESS Neurological: Positive for: GCS=15, CN II-XII Intact, Speech Normal Skin: Positive for: Warm, Dry, Normal Color. Negative for: Rashes Psychiatric: Positive for: Alert, Oriented x 3, Normal Insight, Normal Concentration - Medications Active Medications: Active Medications Generic Name Dose Route Start Last Admin Trade Name Freq PRN Reason Stop Dose Admin Amlodipine Besylate 5 mg 09/14/16 10:00 09/14/16 09:18 Norvasc PO 5 mg DAILY ANNA Administration Aspirin 81 mg 09/14/16 10:00 09/14/16 09:18 Ecotrin PO 81 mg DAILY ANNA Administration Carvedilol 3.125 mg 09/14/16 11:15 09/14/16 17:00 Coreg PO 3.125 mg BID ANNA Administration Clonidine HCl 0.1 mg 09/15/16 10:00 Catapres PO TID ANNA Docusate Sodium 100 mg 09/14/16 10:00 09/14/16 09:18 Colace PO 100 mg DAILY ANNA Administration Famotidine 20 mg 09/14/16 10:00 09/14/16 09:19 Pepcid PO 20 mg DAILY ANNA Administration Hydralazine HCl 10 mg 09/15/16 10:00 Apresoline PO QID ANNA Nicardipine HCl 200 mls @ 50 mls/hr 09/13/16 11:20 09/15/16 07:44 Cardene Iv Premix IV 75 mls/hr .Q4H PRN Administration TITRATE PER MD ORDER Protocol 5 MG/HR Sodium Chloride 1,000 mls @ 100 mls/hr 09/15/16 09:30 Sodium Chloride 0.9% IV .Q10H ANNA Isosorbide Mononitrate 30 mg 09/15/16 10:00 Imdur PO DAILY ANNA Morphine Sulfate 2 mg 09/14/16 07:39 09/14/16 18:29 Morphine IVP 2 mg Q4H PRN Administration Pain, moderate (4-7) Ondansetron HCl 4 mg 09/13/16 14:20 09/13/16 23:02 Zofran Inj IVP 4 mg Q6H PRN Administration Nausea/Vomiting Polyethylene Glycol 17 gm 09/15/16 08:03 Miralax PO DAILY PRN Constipation - Patient Studies Lab Studies: Microbiology Studies 09/13/16 13:45 MRSA Culture (Admit) - Final Naris MRSA NOT DETECTED 09/14/16 04:09 Blood Culture - Preliminary Blood NO GROWTH AFTER 24 HOURS 09/14/16 03:45 Blood Culture - Preliminary Blood NO GROWTH AFTER 24 HOURS Lab Studies 09/15/16 09/14/16 09/14/16 Range/Units 05:00 23:20 18:38 WBC 18.1 H 15.2 H (4.5-11.0) 10^3/ul RBC 3.32 L 3.51 (3.5-6.1) 10^6/uL Hgb 9.8 L 10.5 L (12.0-16.0) gm/dL Hct 27.4 L 28.9 L (36.0-48.0) % MCV 82.5 82.3 (80.0-105.0) fL MCH 29.5 29.9 (25.0-35.0) pg MCHC 35.8 36.3 (31.0-37.0) g/dl RDW 18.4 H 18.5 H (11.5-14.5) % Plt Count 195 172 (120.0-450.0) 10^3/uL Gran % 84.8 H 85.4 H (50.0-68.0) % Lymph % (Auto) 5.6 L 5.5 L (22.0-35.0) % [place] % (Auto) 9.3 H 8.9 H (1.0-6.0) % Eos % (Auto) 0.2 L 0.1 L (1.5-5.0) % Baso % (Auto) 0.1 0.1 (0.0-3.0) % Gran # 15.35 H 12.99 H (1.4-6.5) Lymph # 1.0 L 0.8 L (1.2-3.4) [place] # 1.7 H 1.4 H (0.1-0.6) Eos # 0.0 0.0 (0.0-0.7) Baso # 0.02 0.02 (0.0-2.0) K/mm3 Haptoglobin (43-212) mg/dL Sodium 128 L 129 L (132-148) mmol/L Potassium 4.2 3.6 (3.6-5.0) mmol/L Chloride 95 L 93 L (98-107) mmol/L Carbon Dioxide 21 24 (21-33) mmol/L Anion Gap 16 16 (10-20) BUN 64 H 58 H (7-21) mg/dL Creatinine 4.2 H 4.2 H (0.5-1.4) mg/dL Est GFR ( Amer) 14 14 Est GFR (Non-Af Amer) 11 11 Random Glucose 123 H 135 H (70-110) mg/dL Calcium 8.9 9.1 (8.4-10.5) mg/dL Ferritin ng/mL Total Bilirubin 1.1 1.0 (0.2-1.3) mg/dL AST 27 32 (15-39) U/L ALT 18 21 (7-56) U/L Alkaline Phosphatase 55 53 (38-133) U/L Troponin I 2.24 H* 2.43 H* D ng/mL Total Protein 7.1 7.1 (5.8-8.3) g/dL Albumin 3.6 3.7 (3.0-4.8) g/dL Globulin 3.5 3.5 gm/dL Albumin/Globulin Ratio 1.0 L 1.1 (1.1-1.8) Vitamin B12 (239-931) pg/mL Folate ng/mL Procalcitonin (0.19-0.49) NG/ML Urine Color Yellow (YELLOW) Urine Appearance Cloudy (CLEAR) Urine pH 6.5 (4.7-8.0) Ur Specific [place] 1.015 (1.005-1.035) Urine Protein 100 H (<30 mg/dL) mg/dL Urine Glucose (UA) Negative (NEGATIVE) mg/dL Urine Ketones Negative (NEGATIVE) mg/dL Urine Blood Large H (NEGATIVE) Urine Nitrate Negative (NEGATIVE) Urine Bilirubin Negative (NEGATIVE) Urine Urobilinogen 0.2 (<1 E.U./dL) E.U./dL Ur Leukocyte Esterase Large H (NEGATIVE) Estela/uL Urine RBC 2 - 5 (0-2) /hpf Urine WBC Tntc (0-6) /hpf Ur Epithelial Cells 0 - 2 (0-5) /hpf Urine Bacteria Many (NEG) 09/14/16 09/14/16 09/13/16 Range/Units 10:00 06:00 19:51 WBC (4.5-11.0) 10^3/ul RBC (3.5-6.1) 10^6/uL Hgb (12.0-16.0) gm/dL Hct (36.0-48.0) % MCV (80.0-105.0) fL MCH (25.0-35.0) pg MCHC (31.0-37.0) g/dl RDW (11.5-14.5) % Plt Count (120.0-450.0) 10^3/uL Gran % (50.0-68.0) % Lymph % (Auto) (22.0-35.0) % [place] % (Auto) (1.0-6.0) % Eos % (Auto) (1.5-5.0) % Baso % (Auto) (0.0-3.0) % Gran # (1.4-6.5) Lymph # (1.2-3.4) [place] # (0.1-0.6) Eos # (0.0-0.7) Baso # (0.0-2.0) K/mm3 Haptoglobin <15 L (43-212) mg/dL Sodium (132-148) mmol/L Potassium (3.6-5.0) mmol/L Chloride (98-107) mmol/L Carbon Dioxide (21-33) mmol/L Anion Gap (10-20) BUN (7-21) mg/dL Creatinine (0.5-1.4) mg/dL Est GFR ( Amer) Est GFR (Non-Af Amer) Random Glucose (70-110) mg/dL Calcium (8.4-10.5) mg/dL Ferritin 54.2 ng/mL Total Bilirubin (0.2-1.3) mg/dL AST (15-39) U/L ALT (7-56) U/L Alkaline Phosphatase (38-133) U/L Troponin I 1.43 H* D ng/mL Total Protein (5.8-8.3) g/dL Albumin (3.0-4.8) g/dL Globulin gm/dL Albumin/Globulin Ratio (1.1-1.8) Vitamin B12 926 (239-931) pg/mL Folate > 20.0 ng/mL Procalcitonin (0.19-0.49) NG/ML Urine Color (YELLOW) Urine Appearance (CLEAR) Urine pH (4.7-8.0) Ur Specific [place] (1.005-1.035) Urine Protein (<30 mg/dL) mg/dL Urine Glucose (UA) (NEGATIVE) mg/dL Urine Ketones (NEGATIVE) mg/dL Urine Blood (NEGATIVE) Urine Nitrate (NEGATIVE) Urine Bilirubin (NEGATIVE) Urine Urobilinogen (<1 E.U./dL) E.U./dL Ur Leukocyte Esterase (NEGATIVE) [place]/uL Urine RBC (0-2) /hpf Urine WBC (0-6) /hpf Ur Epithelial Cells (0-5) /hpf Urine Bacteria (NEG) 09/13/16 Range/Units 16:00 WBC (4.5-11.0) 10^3/ul RBC (3.5-6.1) 10^6/uL Hgb (12.0-16.0) gm/dL Hct (36.0-48.0) % MCV (80.0-105.0) fL MCH (25.0-35.0) pg MCHC (31.0-37.0) g/dl RDW (11.5-14.5) % Plt Count (120.0-450.0) 10^3/uL Gran % (50.0-68.0) % Lymph % (Auto) (22.0-35.0) % [place] % (Auto) (1.0-6.0) % Eos % (Auto) (1.5-5.0) % Baso % (Auto) (0.0-3.0) % Gran # (1.4-6.5) Lymph # (1.2-3.4) [place] # (0.1-0.6) Eos # (0.0-0.7) Baso # (0.0-2.0) K/mm3 Haptoglobin (43-212) mg/dL Sodium (132-148) mmol/L Potassium (3.6-5.0) mmol/L Chloride (98-107) mmol/L Carbon Dioxide (21-33) mmol/L Anion Gap (10-20) BUN (7-21) mg/dL Creatinine (0.5-1.4) mg/dL Est GFR ( Amer) Est GFR (Non-Af Amer) Random Glucose (70-110) mg/dL Calcium (8.4-10.5) mg/dL Ferritin ng/mL Total Bilirubin (0.2-1.3) mg/dL AST (15-39) U/L ALT (7-56) U/L Alkaline Phosphatase (38-133) U/L Troponin I ng/mL Total Protein (5.8-8.3) g/dL Albumin (3.0-4.8) g/dL Globulin gm/dL Albumin/Globulin Ratio (1.1-1.8) Vitamin B12 (239-931) pg/mL Folate ng/mL Procalcitonin 0.29 (0.19-0.49) NG/ML Urine Color (YELLOW) Urine Appearance (CLEAR) Urine pH (4.7-8.0) Ur Specific [place] (1.005-1.035) Urine Protein (<30 mg/dL) mg/dL Urine Glucose (UA) (NEGATIVE) mg/dL Urine Ketones (NEGATIVE) mg/dL Urine Blood (NEGATIVE) Urine Nitrate (NEGATIVE) Urine Bilirubin (NEGATIVE) Urine Urobilinogen (<1 E.U./dL) E.U./dL Ur Leukocyte Esterase (NEGATIVE) [place]/uL Urine RBC (0-2) /hpf Urine WBC (0-6) /hpf Ur Epithelial Cells (0-5) /hpf Urine Bacteria (NEG) Laboratory Results - last 24 hr 09/13/16 09/13/16 09/14/16 16:00 19:51 06:00 WBC RBC Hgb Hct MCV MCH MCHC RDW Plt Count Gran % Lymph % (Auto) [place] % (Auto) Eos % (Auto) Baso % (Auto) Gran # Lymph # [place] # Eos # Baso # Haptoglobin <15 L Sodium Potassium Chloride Carbon Dioxide Anion Gap BUN Creatinine Est GFR ( Amer) Est GFR (Non-Af Amer) Random Glucose Calcium Ferritin 54.2 Total Bilirubin AST ALT Alkaline Phosphatase Troponin I Total Protein Albumin Globulin Albumin/Globulin Ratio Vitamin B12 926 Folate > 20.0 Procalcitonin 0.29 Urine Color Urine Appearance Urine pH Ur Specific [place] Urine Protein Urine Glucose (UA) Urine Ketones Urine Blood Urine Nitrate Urine Bilirubin Urine Urobilinogen Ur Leukocyte Esterase Urine RBC Urine WBC Ur Epithelial Cells Urine Bacteria 09/14/16 09/14/16 09/14/16 10:00 18:38 23:20 WBC 15.2 H RBC 3.51 Hgb 10.5 L Hct 28.9 L MCV 82.3 MCH 29.9 MCHC 36.3 RDW 18.5 H Plt Count 172 Gran % 85.4 H Lymph % (Auto) 5.5 L [place] % (Auto) 8.9 H Eos % (Auto) 0.1 L Baso % (Auto) 0.1 Gran # 12.99 H Lymph # 0.8 L [place] # 1.4 H Eos # 0.0 Baso # 0.02 Haptoglobin Sodium 129 L Potassium 3.6 Chloride 93 L Carbon Dioxide 24 Anion Gap 16 BUN 58 H Creatinine 4.2 H Est GFR ( Amer) 14 Est GFR (Non-Af Amer) 11 Random Glucose 135 H Calcium 9.1 Ferritin Total Bilirubin 1.0 AST 32 ALT 21 Alkaline Phosphatase 53 Troponin I 1.43 H* D 2.43 H* D Total Protein 7.1 Albumin 3.7 Globulin 3.5 Albumin/Globulin Ratio 1.1 Vitamin B12 Folate Procalcitonin Urine Color Yellow Urine Appearance Cloudy Urine pH 6.5 Ur Specific [place] 1.015 Urine Protein 100 H Urine Glucose (UA) Negative Urine Ketones Negative Urine Blood Large H Urine Nitrate Negative Urine Bilirubin Negative Urine Urobilinogen 0.2 Ur Leukocyte Esterase Large H Urine RBC 2 - 5 Urine WBC Tntc Ur Epithelial Cells 0 - 2 Urine Bacteria Many 09/15/16 05:00 WBC 18.1 H RBC 3.32 L Hgb 9.8 L Hct 27.4 L MCV 82.5 MCH 29.5 MCHC 35.8 RDW 18.4 H Plt Count 195 Gran % 84.8 H Lymph % (Auto) 5.6 L [place] % (Auto) 9.3 H Eos % (Auto) 0.2 L Baso % (Auto) 0.1 Gran # 15.35 H Lymph # 1.0 L [place] # 1.7 H Eos # 0.0 Baso # 0.02 Haptoglobin Sodium 128 L Potassium 4.2 Chloride 95 L Carbon Dioxide 21 Anion Gap 16 BUN 64 H Creatinine 4.2 H Est GFR ( Amer) 14 Est GFR (Non-Af Amer) 11 Random Glucose 123 H Calcium 8.9 Ferritin Total Bilirubin 1.1 AST 27 ALT 18 Alkaline Phosphatase 55 Troponin I 2.24 H* Total Protein 7.1 Albumin 3.6 Globulin 3.5 Albumin/Globulin Ratio 1.0 L Vitamin B12 Folate Procalcitonin Urine Color Urine Appearance Urine pH Ur Specific [place] Urine Protein Urine Glucose (UA) Urine Ketones Urine Blood Urine Nitrate Urine Bilirubin Urine Urobilinogen Ur Leukocyte Esterase Urine RBC Urine WBC Ur Epithelial Cells Urine Bacteria EKG/Cardiology Studies: Cardiology / EKG Studies 09/14/16 18:33 EKG [ELECTROCARDIOGRAM] Stat Comment: Reason For Exam: chest pain 09/14/16 23:25 EKG [ELECTROCARDIOGRAM] Stat Comment: Reason For Exam: r/o ACS Review of Systems - Constitutional Constitutional: absent: Fever, Chills - EENT Eyes: As Per HPI (no vision left eye) Ears: absent: Dizziness - Cardiovascular Cardiovascular: absent: Chest Pain, Dyspnea, Lightheadedness - Respiratory Respiratory: absent: Cough, Dyspnea, Pain on Inspiration - Gastrointestinal Gastrointestinal: Constipation (x 4 days). absent: Abdominal Pain, Diarrhea, Nausea, Vomiting - Genitourinary Genitourinary: absent: Flank Pain - Integumentary Integumentary: absent: New Lesions - Neurological Neurological: absent: Focal Weakness - Endocrine Endocrine: absent: Palpitations Critical Care Progress Note - Ventilator Checklist PUD Prophalyxis: Yes DVT Prophylaxis: No (vasogenic cerebral edema) - Prophylaxis GI Prophylaxis GI: Pepsid - Nutrition Nutrition: Nutrition Category Date Time Status Liquid Diet [DIET] Diets 09/14/16 Dinner Ordered Assessment/Plan - Assessment and Plan (Free Text) Assessment: 51 yo F w h/o uncontrolled HTN admitted to ICU with hypertensive emergency, PRES syndrome, cardiomyopathy, ESTEFANI, vitreous hemorrhage, left retinal detachment. Plan: Neuro: AAOx3, NAD MRI head shows extensive brainstem, basal ganglia and thalamic edema, no acute infarct or hemorrhage Maintain normothermia EEG showed diffuse slowing c/w BL cerebral dysfunction, no epileptiform activity Will need optho followup when stable CV: SBP 150-170. Goal 120-130. Continue Norvasc, Coreg. Start Clonidine, Hydralazine, Imdur, wean nicardipine drip Continue ASA for stroke prevention No renal artery stenosis seen on Duplex. Medical renal Disease BL kidneys Pheochromocytoma workup pending as per nephrology Maintain MAP >65 Pulm: No acute issues, able to protect airway. Comfortable and saturating in high 90s-100% on room air Maintain spo2>90 GI: GI ppx Miralax Qday ORN constipation Renal: ESTEFANI stable, not improving. Will change IVF to NS @100cc/hr (no need for K supplementation as hypokalemia is now resolved) Remove taylor. Continue monitoring renal function Hypokalemia resolved Endo: No acute issues A1C 4.2 Maintain euglycemia 140-180 ID: UA significant for Large LE, many bacteria, TNTC WBCs. Leukocytosis steadily increasing, 18.1 today. Start Rocephin Urine culture Blood cultures negative at 24 hours Heme: Slightly Hb drop, no signs of bleeding, likely dilutional Iron deficiency found on labwork. Will need iron supplementation DVT/GI ppx: OOB, Pepcid, FLD - Date & Time Date: 09/15/16 Time: 10:35 <Rafi Myers - Last Filed: 09/15/16 13:36> CCU Objective - Vital Signs / Intake & Output Vital Signs (Last 4 hours): Vital Signs Temp Pulse Resp BP Pulse Ox 09/15/16 12:22 77 26 H 100 09/15/16 12:01 76 22 140/84 100 09/15/16 12:00 98.3 F 81 20 140/84 100 09/15/16 11:00 80 21 153/83 H 100 09/15/16 10:35 83 157/94 H 09/15/16 10:28 83 157/98 H 09/15/16 10:27 81 157/94 H 09/15/16 10:26 81 157/94 H 09/15/16 10:25 83 09/15/16 10:21 80 18 157/94 H 100 09/15/16 10:18 81 18 Intake and Output (Last 8hrs): Intake & Output 09/14/16 09/15/16 09/15/16 22:59 06:59 14:59 Intake Total 2620 2150 Output Total 600 400 Balance 2019 1749 Weight 172 lb 5 oz Intake: IV 1900 2150 Right Antecubital 100 Cardene 600 850 IVF 1000 1200 K-rider 300 Oral 720 Output: Urine 600 400 Urethral (Taylor) 600 400 Other: Voiding Method Indwelling Catheter Indwelling Catheter - Medications Active Medications: Active Medications Generic Name Dose Route Start Last Admin Trade Name Freq PRN Reason Stop Dose Admin Amlodipine Besylate 10 mg 09/15/16 12:05 Norvasc PO DAILY ANNA Aspirin 81 mg 09/14/16 10:00 09/15/16 10:34 Ecotrin PO 81 mg DAILY ANNA Administration Atorvastatin Calcium 20 mg 09/15/16 17:00 Lipitor PO DIN ANNA Carvedilol 6.25 mg 09/15/16 12:13 Coreg PO BID ANNA Clonidine HCl 0.1 mg 09/15/16 12:07 Catapres PO Q4H PRN hypertension Docusate Sodium 100 mg 09/14/16 10:00 09/15/16 10:28 Colace PO 100 mg DAILY ANNA Administration Famotidine 20 mg 09/14/16 10:00 09/15/16 10:27 Pepcid PO 20 mg DAILY ANNA Administration Hydralazine HCl 25 mg 09/15/16 14:00 Apresoline PO TID ANNA Nicardipine HCl 200 mls @ 50 mls/hr 09/13/16 11:20 09/15/16 11:00 Cardene Iv Premix IV 5 mg/hr .Q4H PRN Titration TITRATE PER MD ORDER Protocol 5 MG/HR Sodium Chloride 1,000 mls @ 100 mls/hr 09/15/16 09:30 09/15/16 10:33 Sodium Chloride 0.9% IV 100 mls/hr .Q10H ANNA Administration Ceftriaxone Sodium 100 mls @ 100 mls/hr 09/15/16 11:00 09/15/16 11:04 Rocephin 1 Gram Ivpb IVPB 100 mls/hr DAILY ANNA Administration Protocol Iron Sucrose 200 mg/ Sodium 110 mls @ 110 mls/hr 09/16/16 10:00 Chloride IVPB 09/21/16 10:01 DAILY ANNA Isosorbide Mononitrate 30 mg 09/15/16 10:00 09/15/16 10:26 Imdur PO 30 mg DAILY ANNA Administration Morphine Sulfate 2 mg 09/14/16 07:39 09/14/16 18:29 Morphine IVP 2 mg Q4H PRN Administration Pain, moderate (4-7) Ondansetron HCl 4 mg 09/13/16 14:20 09/13/16 23:02 Zofran Inj IVP 4 mg Q6H PRN Administration Nausea/Vomiting Polyethylene Glycol 17 gm 09/15/16 08:03 09/15/16 10:33 Miralax PO 17 gm DAILY PRN Administration Constipation - Patient Studies Lab Studies: Microbiology Studies 09/13/16 13:45 MRSA Culture (Admit) - Final Naris MRSA NOT DETECTED 09/14/16 04:09 Blood Culture - Preliminary Blood NO GROWTH AFTER 24 HOURS 09/14/16 03:45 Blood Culture - Preliminary Blood NO GROWTH AFTER 24 HOURS Lab Studies 09/15/16 09/14/16 09/14/16 Range/Units 05:00 23:20 18:38 WBC 18.1 H 15.2 H (4.5-11.0) 10^3/ul RBC 3.32 L 3.51 (3.5-6.1) 10^6/uL Hgb 9.8 L 10.5 L (12.0-16.0) gm/dL Hct 27.4 L 28.9 L (36.0-48.0) % MCV 82.5 82.3 (80.0-105.0) fL MCH 29.5 29.9 (25.0-35.0) pg MCHC 35.8 36.3 (31.0-37.0) g/dl RDW 18.4 H 18.5 H (11.5-14.5) % Plt Count 195 172 (120.0-450.0) 10^3/uL Gran % 84.8 H 85.4 H (50.0-68.0) % Lymph % (Auto) 5.6 L 5.5 L (22.0-35.0) % [place] % (Auto) 9.3 H 8.9 H (1.0-6.0) % Eos % (Auto) 0.2 L 0.1 L (1.5-5.0) % Baso % (Auto) 0.1 0.1 (0.0-3.0) % Gran # 15.35 H 12.99 H (1.4-6.5) Lymph # 1.0 L 0.8 L (1.2-3.4) [place] # 1.7 H 1.4 H (0.1-0.6) Eos # 0.0 0.0 (0.0-0.7) Baso # 0.02 0.02 (0.0-2.0) K/mm3 Haptoglobin (43-212) mg/dL Sodium 128 L 129 L (132-148) mmol/L Potassium 4.2 3.6 (3.6-5.0) mmol/L Chloride 95 L 93 L (98-107) mmol/L Carbon Dioxide 21 24 (21-33) mmol/L Anion Gap 16 16 (10-20) BUN 64 H 58 H (7-21) mg/dL Creatinine 4.2 H 4.2 H (0.5-1.4) mg/dL Est GFR ( Amer) 14 14 Est GFR (Non-Af Amer) 11 11 Random Glucose 123 H 135 H (70-110) mg/dL Calcium 8.9 9.1 (8.4-10.5) mg/dL Ferritin ng/mL Total Bilirubin 1.1 1.0 (0.2-1.3) mg/dL AST 27 32 (15-39) U/L ALT 18 21 (7-56) U/L Alkaline Phosphatase 55 53 (38-133) U/L Troponin I 2.24 H* 2.43 H* D ng/mL Total Protein 7.1 7.1 (5.8-8.3) g/dL Albumin 3.6 3.7 (3.0-4.8) g/dL Globulin 3.5 3.5 gm/dL Albumin/Globulin Ratio 1.0 L 1.1 (1.1-1.8) Vitamin B12 (239-931) pg/mL Folate ng/mL Urine Color Yellow (YELLOW) Urine Appearance Cloudy (CLEAR) Urine pH 6.5 (4.7-8.0) Ur Specific [place] 1.015 (1.005-1.035) Urine Protein 100 H (<30 mg/dL) mg/dL Urine Glucose (UA) Negative (NEGATIVE) mg/dL Urine Ketones Negative (NEGATIVE) mg/dL Urine Blood Large H (NEGATIVE) Urine Nitrate Negative (NEGATIVE) Urine Bilirubin Negative (NEGATIVE) Urine Urobilinogen 0.2 (<1 E.U./dL) E.U./dL Ur Leukocyte Esterase Large H (NEGATIVE) Estela/uL Urine RBC 2 - 5 (0-2) /hpf Urine WBC Tntc (0-6) /hpf Ur Epithelial Cells 0 - 2 (0-5) /hpf Urine Bacteria Many (NEG) 09/14/16 09/13/16 Range/Units 06:00 19:51 WBC (4.5-11.0) 10^3/ul RBC (3.5-6.1) 10^6/uL Hgb (12.0-16.0) gm/dL Hct (36.0-48.0) % MCV (80.0-105.0) fL MCH (25.0-35.0) pg MCHC (31.0-37.0) g/dl RDW (11.5-14.5) % Plt Count (120.0-450.0) 10^3/uL Gran % (50.0-68.0) % Lymph % (Auto) (22.0-35.0) % [place] % (Auto) (1.0-6.0) % Eos % (Auto) (1.5-5.0) % Baso % (Auto) (0.0-3.0) % Gran # (1.4-6.5) Lymph # (1.2-3.4) [place] # (0.1-0.6) Eos # (0.0-0.7) Baso # (0.0-2.0) K/mm3 Haptoglobin <15 L (43-212) mg/dL Sodium (132-148) mmol/L Potassium (3.6-5.0) mmol/L Chloride (98-107) mmol/L Carbon Dioxide (21-33) mmol/L Anion Gap (10-20) BUN (7-21) mg/dL Creatinine (0.5-1.4) mg/dL Est GFR ( Amer) Est GFR (Non-Af Amer) Random Glucose (70-110) mg/dL Calcium (8.4-10.5) mg/dL Ferritin 54.2 ng/mL Total Bilirubin (0.2-1.3) mg/dL AST (15-39) U/L ALT (7-56) U/L Alkaline Phosphatase (38-133) U/L Troponin I ng/mL Total Protein (5.8-8.3) g/dL Albumin (3.0-4.8) g/dL Globulin gm/dL Albumin/Globulin Ratio (1.1-1.8) Vitamin B12 926 (239-931) pg/mL Folate > 20.0 ng/mL Urine Color (YELLOW) Urine Appearance (CLEAR) Urine pH (4.7-8.0) Ur Specific [place] (1.005-1.035) Urine Protein (<30 mg/dL) mg/dL Urine Glucose (UA) (NEGATIVE) mg/dL Urine Ketones (NEGATIVE) mg/dL Urine Blood (NEGATIVE) Urine Nitrate (NEGATIVE) Urine Bilirubin (NEGATIVE) Urine Urobilinogen (<1 E.U./dL) E.U./dL Ur Leukocyte Esterase (NEGATIVE) [place]/uL Urine RBC (0-2) /hpf Urine WBC (0-6) /hpf Ur Epithelial Cells (0-5) /hpf Urine Bacteria (NEG) Laboratory Results - last 24 hr 09/13/16 09/14/16 09/14/16 19:51 06:00 18:38 WBC 15.2 H RBC 3.51 Hgb 10.5 L Hct 28.9 L MCV 82.3 MCH 29.9 MCHC 36.3 RDW 18.5 H Plt Count 172 Gran % 85.4 H Lymph % (Auto) 5.5 L [place] % (Auto) 8.9 H Eos % (Auto) 0.1 L Baso % (Auto) 0.1 Gran # 12.99 H Lymph # 0.8 L [place] # 1.4 H Eos # 0.0 Baso # 0.02 Haptoglobin <15 L Sodium 129 L Potassium 3.6 Chloride 93 L Carbon Dioxide 24 Anion Gap 16 BUN 58 H Creatinine 4.2 H Est GFR ( Amer) 14 Est GFR (Non-Af Amer) 11 Random Glucose 135 H Calcium 9.1 Ferritin 54.2 Total Bilirubin 1.0 AST 32 ALT 21 Alkaline Phosphatase 53 Troponin I 2.43 H* D Total Protein 7.1 Albumin 3.7 Globulin 3.5 Albumin/Globulin Ratio 1.1 Vitamin B12 926 Folate > 20.0 Urine Color Urine Appearance Urine pH Ur Specific [place] Urine Protein Urine Glucose (UA) Urine Ketones Urine Blood Urine Nitrate Urine Bilirubin Urine Urobilinogen Ur Leukocyte Esterase Urine RBC Urine WBC Ur Epithelial Cells Urine Bacteria 09/14/16 09/15/16 23:20 05:00 WBC 18.1 H RBC 3.32 L Hgb 9.8 L Hct 27.4 L MCV 82.5 MCH 29.5 MCHC 35.8 RDW 18.4 H Plt Count 195 Gran % 84.8 H Lymph % (Auto) 5.6 L [place] % (Auto) 9.3 H Eos % (Auto) 0.2 L Baso % (Auto) 0.1 Gran # 15.35 H Lymph # 1.0 L [place] # 1.7 H Eos # 0.0 Baso # 0.02 Haptoglobin Sodium 128 L Potassium 4.2 Chloride 95 L Carbon Dioxide 21 Anion Gap 16 BUN 64 H Creatinine 4.2 H Est GFR ( Amer) 14 Est GFR (Non-Af Amer) 11 Random Glucose 123 H Calcium 8.9 Ferritin Total Bilirubin 1.1 AST 27 ALT 18 Alkaline Phosphatase 55 Troponin I 2.24 H* Total Protein 7.1 Albumin 3.6 Globulin 3.5 Albumin/Globulin Ratio 1.0 L Vitamin B12 Folate Urine Color Yellow Urine Appearance Cloudy Urine pH 6.5 Ur Specific [place] 1.015 Urine Protein 100 H Urine Glucose (UA) Negative Urine Ketones Negative Urine Blood Large H Urine Nitrate Negative Urine Bilirubin Negative Urine Urobilinogen 0.2 Ur Leukocyte Esterase Large H Urine RBC 2 - 5 Urine WBC Tntc Ur Epithelial Cells 0 - 2 Urine Bacteria Many EKG/Cardiology Studies: Cardiology / EKG Studies 09/14/16 18:33 EKG [ELECTROCARDIOGRAM] Stat Comment: Reason For Exam: chest pain 09/14/16 23:25 EKG [ELECTROCARDIOGRAM] Stat Comment: Reason For Exam: r/o ACS Critical Care Progress Note - Nutrition Nutrition: Nutrition Category Date Time Status Liquid Diet [DIET] Diets 09/14/16 Dinner Ordered Addendum Addendum: 09/15/16 13:18 patient was seen, examined and discussed at bedside shoulder to shoulder with Dr. Ramirez. Her note reflects my exam, assessment and plan, except as below. Meds/Labs/ONE reviewed 51 yo with hypertensive emergency due to non-compliance with her meds, presented with ESTEFANI, PRES, vitriol hemorrhage, cardiomyopathy, ?retinal detachement 1. ESTEFANI--continue IVF, avoid nephrotoxics, euvolemia and euglycemia, nephro consult, BP control within likely renal autoregulatory range. At present creatinine plataued. Will continue monitor lites and u/o. Will d/c taylor however as wbc rising and LE positive. patient is alert and oriented and be able to collect urine for u/o monitoring 2. PRES: BP control, neuro input appreciated 3. cardiomyopathy: spoke with Dr. Carson--no cath at present time. troponin likely due to PRES and ESTEFANI. On the other note I will start patient on hydralazine/isosorbide for afterload reduction as EF 35%, beta blockers continue , aspirin continued 4. Ophthalmo: spoke with [facility]--they decline patient based on the fact that ocular changes were not acute and no need for emergent surgery. Then I spoke with Dr. Bae and made him aware. He knew that the patient was declined by [facility]. Dr. Bae understood that it would be up to him to either pursue or not a transfer to another institution for consideration of emergent eye surgery in case he disagreed with [facility] assessment. 5. BP control: I will start clonidine low dose in attempt to wean off cardene drip 6. DVT/GI prophylaxis ccm time 40 min
[2016-09-15] MEDS: cefTRIAXone 1 gm 100 ML IVPB SCH (11:04)
--- NOTE | 2016-09-15 12:01 | CP.PCM.PN ---
<RamseyLuciano - Last Filed: 09/15/16 13:49> Subjective - Date & Time of Evaluation Date of Evaluation: 09/15/16 Time of Evaluation: 07:45 - Subjective Subjective: PGY-1 Medicine Progress Note for Dr. Mitchell Patient seen and examined at bedside. No acute event overnight. Patient reported that L eye still has no vision. Patient stated that overall she has improved from the last two days. Patient started on liquid diet today. Patient has no other specific complaint today. Denied fever/chills, cp, sob, palpitations, n/v/d, incontinence, numbness/tingling. Objective - Vital Signs/Intake and Output Vital Signs (last 24 hours): Temp Pulse Resp BP Pulse Ox 97.7 F 83 19 157/94 H 96 09/15/16 08:00 09/15/16 10:35 09/15/16 09:06 09/15/16 10:35 09/15/16 09:06 Intake and Output: 09/15/16 09/15/16 06:59 18:59 Intake Total 2150 Output Total 400 Balance 1750 - Medications Medications: Current Medications Amlodipine Besylate (Norvasc) 5 mg PO DAILY [facility] Last Admin: 09/15/16 10:28 Dose: 5 mg Aspirin (Ecotrin) 81 mg PO DAILY [facility] Last Admin: 09/15/16 10:34 Dose: 81 mg Carvedilol (Coreg) 3.125 mg PO BID [facility] Last Admin: 09/15/16 10:27 Dose: 3.125 mg Clonidine HCl (Catapres) 0.1 mg PO TID [facility] Last Admin: 09/15/16 10:35 Dose: 0.1 mg Docusate Sodium (Colace) 100 mg PO DAILY [facility] Last Admin: 09/15/16 10:28 Dose: 100 mg Famotidine (Pepcid) 20 mg PO DAILY [facility] Last Admin: 09/15/16 10:27 Dose: 20 mg Hydralazine HCl (Apresoline) 10 mg PO QID [facility] Last Admin: 09/15/16 10:26 Dose: 10 mg Nicardipine HCl (Cardene Iv Premix) 200 mls @ 50 mls/hr IV .Q4H PRN; Protocol; 5 MG/HR PRN Reason: TITRATE PER MD ORDER Last Admin: 09/15/16 07:44 Dose: 75 mls/hr Sodium Chloride (Sodium Chloride 0.9%) 1,000 mls @ 100 mls/hr IV .Q10H [facility] Last Admin: 09/15/16 10:33 Dose: 100 mls/hr Ceftriaxone Sodium (Rocephin 1 Gram Ivpb) 100 mls @ 100 mls/hr IVPB DAILY [facility] PRN Reason: Protocol Last Admin: 09/15/16 11:04 Dose: 100 mls/hr Isosorbide Mononitrate (Imdur) 30 mg PO DAILY [facility] Last Admin: 09/15/16 10:26 Dose: 30 mg Morphine Sulfate (Morphine) 2 mg IVP Q4H PRN PRN Reason: Pain, moderate (4-7) Last Admin: 09/14/16 18:29 Dose: 2 mg Ondansetron HCl (Zofran Inj) 4 mg IVP Q6H PRN PRN Reason: Nausea/Vomiting Last Admin: 09/13/16 23:02 Dose: 4 mg Polyethylene Glycol (Miralax) 17 gm PO DAILY PRN PRN Reason: Constipation Last Admin: 09/15/16 10:33 Dose: 17 gm - Labs Labs: 09/15/16 05:00 09/15/16 05:00 PT 10.7 Seconds (9.9-11.8) 09/13/16 10:30 INR 0.99 (0.93-1.08) 09/13/16 10:30 APTT 26.4 Seconds (23.7-30.8) 09/13/16 10:30 - Constitutional Appears: No Acute Distress - Head Exam Head Exam: ATRAUMATIC, NORMOCEPHALIC - Eye Exam Eye Exam: EOMI Additional comments: patient is unable to see out of L eye - ENT Exam ENT Exam: Mucous Membranes Moist - Respiratory Exam Respiratory Exam: Clear to Ausculation Bilateral, NORMAL BREATHING PATTERN - Cardiovascular Exam Cardiovascular Exam: REGULAR RHYTHM, +S1, +S2 - GI/Abdominal Exam GI & Abdominal Exam: Soft, Normal Bowel Sounds. absent: Distended, Firm, Guarding, Tenderness, Rebound - Extremities Exam Extremities Exam: Normal Capillary Refill - Back Exam Back Exam: absent: CVA tenderness (L), CVA tenderness (R) - Neurological Exam Neurological Exam: Alert, Awake, CN II-XII Intact, Oriented x3 - Psychiatric Exam Psychiatric exam: Normal Affect, Normal Mood - Skin Skin Exam: Dry, Intact, Normal Color, Warm Assessment and Plan - Assessment and Plan (Free Text) Plan: 51 F with PMH of HTN, sickle cell trait, Glaucoma presented to [facility] for complaint of Chest pain, SOB, dizziness/lightheadedness 1. Hypertensive Emergency ECHO: LV normal size, mild concentric LVH, mild-mod impaired systolic function EF35-40, mild-mod hypokinesis apical anterior wall, mild mitral regurg, trace aortic regurg, mild tricuspid regurg Renal US: Medical renal disease, 1.6 cm simple cyst on upper pole of r kidney ( see full report). MRI Brain: extensice signal abnormality in brainstem and basal ganglia bilaterally, particularly thalami, suspicious for edema. Extensive white matter signal abnormality in cerebral hemispheresbilaterally. Uncertain etiology, could be hypertensive/infectious/inflammatory encephalopathy extensivve demyelinating disease, toxic insult, or underlying metabolic abnormality (see full report). CT head: extensive hypodensity in the perventricular white matter, sheyla, and cerebellar white matter. Could represent vasogenic edema related to HTN or chronic microvascular disease (see full report). CT chest: mild cardiomegaly, very mild emphysematous changes in lung apices bilaterally (see full report). CT abd/pelvos: Right ovarian cyst (see full report). Carotid duplex: bilateral 20-39% stenoses of proximal ICA, antegrade flow in both vertebral arteries (see full report). ASA 81 mg PO daily Norvasc 10 mg PO daily Coreg 6.25 PO BID Hydralazine 25 mg PO TID Clonidine 0.1 mg PO Q4H PRN Isosorbide Mononitrate 30 mg PO daily Nicardipine drip Nephro consult, Dr. Mcgarry, help appreciated Opthlamology consult, Dr. Bae, help appreciated Cardio consult, Dr. Carson, help appreciated Cardiac enzymes 0.20-->0.28-->1.98-->1.43-->2.43-->2.24 f/u daily labs Liquid diet 2. Chest Pain ECHO: LV normal size, mild concentric LVH, mild-mod impaired systolic function EF35-40, mild-mod hypokinesis apical anterior wall, mild mitral regurg, trace aortic regurg, mild tricuspid regurg Carotid duplex: bilateral 20-39% stenoses of proximal ICA, antegrade flow in both vertebral arteries (see full report). ASA 81 mg PO daily Norvasc 10 mg PO daily Coreg 6.25 PO BID Hydralazine 25 mg PO TID Clonidine 0.1 mg PO Q4H PRN Isosorbide Mononitrate 30 mg PO daily Nicardipine drip Lipitor 20 mg PO HS Nephro consult, Dr. Mcgarry, help appreciated Opthlamology consult, Dr. Bae, help appreciated Cardio consult, Dr. Carson, help appreciated Cardiac enzymes 0.20-->0.28-->1.98-->1.43 f/u daily labs BNP 31062 3. ESTEFANI Bun/Cr: 64/4.2 NS with KCL 20 mEq 100 cc/hr Renal US: Medical renal disease, 1.6 cm simple cyst on upper pole of r kidney ( see full report). Rocephin 1 gm IVPB daily 4. Dyspnea ECHO: LV normal size, mild concentric LVH, mild-mod impaired systolic function EF35-40, mild-mod hypokinesis apical anterior wall, mild mitral regurg, trace aortic regurg, mild tricuspid regurg Carotid duplex: bilateral 20-39% stenoses of proximal ICA, antegrade flow in both vertebral arteries (see full report). ASA 81 mg PO daily Norvasc 5 mg PO daily Nicardipine drip Nephro consult, Dr. Mcgarry, help appreciated Opthlamology consult, Dr. Bae, help appreciated Cardio consult, Dr. Carson, help appreciated Cardiac enzymes 0.20-->0.28-->1.98-->1.43 f/u daily labs BNP 40105 5. Hypokalemia Resolved K+ 4.5 Monitor 6. Anemia Iron sucrose 200 mg IVPB daily 7. Glaucoma Tropicamide 1% 1 drop OU 8. Prophylactic measures Pepcid 20 mg PO daily Colace 100 mg PO daily Miralax 17 gm PO daily PRN <Patsy Mitchell - Last Filed: 09/16/16 17:34> Objective - Vital Signs/Intake and Output Vital Signs (last 24 hours): Temp Pulse Resp BP Pulse Ox 97.8 F 70 12 149/94 H 99 09/16/16 16:00 09/16/16 16:33 09/16/16 16:44 09/16/16 17:00 09/16/16 17:00 Intake and Output: 09/16/16 09/16/16 06:59 18:59 Intake Total 1350 1220 Output Total 300 600 Balance 1050 620 - Medications Medications: Current Medications Amlodipine Besylate (Norvasc) 10 mg PO DAILY [facility] Last Admin: 09/16/16 10:30 Dose: Not Given Aspirin (Ecotrin) 81 mg PO DAILY [facility] Last Admin: 09/16/16 10:32 Dose: 81 mg Atorvastatin Calcium (Lipitor) 20 mg PO DIN [facility] Last Admin: 09/15/16 17:47 Dose: 20 mg Carvedilol (Coreg) 6.25 mg PO BID [facility] Last Admin: 09/16/16 10:29 Dose: Not Given Clonidine HCl (Catapres) 0.2 mg PO TID [facility] Last Admin: 09/16/16 16:47 Dose: Not Given Docusate Sodium (Colace) 100 mg PO DAILY [facility] Last Admin: 09/16/16 10:32 Dose: 100 mg Famotidine (Pepcid) 20 mg PO DAILY [facility] Last Admin: 09/16/16 10:32 Dose: 20 mg Hydralazine HCl (Apresoline) 50 mg PO TID [facility] Last Admin: 09/16/16 16:47 Dose: Not Given Ceftriaxone Sodium (Rocephin 1 Gram Ivpb) 100 mls @ 100 mls/hr IVPB DAILY [facility] PRN Reason: Protocol Last Admin: 09/16/16 10:38 Dose: 100 mls/hr Iron Sucrose 200 mg/ Sodium (Chloride) 110 mls @ 110 mls/hr IVPB DAILY [facility] Stop: 09/21/16 10:01 Last Admin: 09/16/16 10:40 Dose: 110 mls/hr Isosorbide Mononitrate (Imdur) 30 mg PO DAILY [facility] Last Admin: 09/16/16 10:29 Dose: Not Given Lorazepam (Ativan) 0.5 mg IVP Q4H PRN; Protocol PRN Reason: Anxiety Morphine Sulfate (Morphine) 2 mg IVP Q4H PRN PRN Reason: Pain, moderate (4-7) Last Admin: 09/14/16 18:29 Dose: 2 mg Polyethylene Glycol (Miralax) 17 gm PO DAILY PRN PRN Reason: Constipation Last Admin: 09/15/16 10:33 Dose: 17 gm - Labs Labs: 09/16/16 06:20 09/16/16 06:20 PT 10.7 Seconds (9.9-11.8) 09/13/16 10:30 INR 0.99 (0.93-1.08) 09/13/16 10:30 APTT 26.4 Seconds (23.7-30.8) 09/13/16 10:30 Attending/Attestation - Attestation I have personally seen and examined this patient.: Yes I have fully participated in the care of the patient.: Yes I have reviewed all pertinent clinical information, including history, physical exam and plan: Yes Notes (Text): I have seen and examined the patient with the resident. Agree with the above note with the following additions/ exceptions: Briefly this is 51 year old female with history of HTN, non compliant with medications, sickle cell trait, glaucoma, marijuana use, former alcohol abuser, OTC motrin use for headache on regular basis who presented with hypertensive emergency (headache, blurry vision of left eye, chest pain, CARY, vomiting and found to have dehydration, hyponatremia, hypokalemia, elevated troponin and acute kidney injury. Abd pelvis CT ruled out aortic dissection. Denies any complaints today. Tolerating liquid diet. States that her dizziness has resolved. There is left eye vision loss. 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 Calls placed to [facility] to transfer the patient. Initially they were agreeable but later called back stating that patient is too unstable for any kind of eye surgery at this time therefore patient was not transferred. BP has improved. Continue nicardipine drip. Patient has leukocytosis.UA revealed large LE on rocephin. Repeat procal pending. Echo showed EF of 35-40%. Renal ultrasound showed medical renal disease. MRI brain showed vasogenic edema most likely PRES syndrome. Troponins are elevated most likely due to hypertensive emergency and renal impairement. No plan for cardiac cath so far. Work up for secondary causes of HTN pending. Blood cultures are pending as well. For anemia, she is on venofer. Dr Patsy Mitchell
--- NOTE | 2016-09-15 12:04 | CP.PCM.PN ---
Subjective - Date & Time of Evaluation Date of Evaluation: 09/15/16 Time of Evaluation: 11:00 - Subjective Subjective: Patient: CULLEN SMITH Unit: [id number] : 1965 Loc: CCU Room/Bed: 128[facility] Age/Sex: 51 / F ADM Status: ADM IN ADM Date: DIS Date: Progress note: DATE: 09/14/2016 CHIEF COMPLAINT: F/U for Confusion and abnormal MRI. SUBJECTIVE: Patient examined and bedside, still has mild leg weakness, no confusion. BP much better today. Has decreased vision out of left eye. REVIEW OF SYSTEMS: A 14-point review of systems is negative except for the HPI. PAST MEDICAL HISTORY: Significant for hypertension, has not been taking medications for the past 3 years. No history of any prior seizures. MEDICATIONS: Medication that patient has been taking prior to admission were ibuprofen as well as Aleve p.r.n. basis. She was not on any antihypertensive medications the past few years. ALLERGIES: No known drug allergies. SOCIAL HISTORY: Notable for patient drinking at least 3 cans of beer per day. She states that she no longer drinks in the past few days because she was having vomiting. She smokes cigarettes as well as marijuana. Denies any other types of drugs. FAMILY HISTORY: Mother has type 2 diabetes mellitus, hypertension, and end- stage renal disease for which she is on hemodialysis. PHYSICAL EXAMINATION: VITAL SIGNS: Reviewed. GENERAL: The patient is sitting up in bed in no acute distress. HEENT: Atraumatic, normocephalic. PERRLA. Extraocular muscles intact. NECK: Supple, no JVD, no adenopathy noted. LUNGS: Clear to auscultation. No adventitious sounds. HEART: S1, S2, normal rate and rhythm. No murmurs, rubs, or gallops. ABDOMEN: Soft, nontender, nondistended. Bowel sounds present. EXTREMITIES: No clubbing, no cyanosis. Peripheral pulses 2+ felt bilaterally. NEUROLOGIC: The patient is alert, orientated to person, place, month and year. Speech is fluent, without any errors. Cranial nerves II-XII intact. Recall after 5 minutes is 2/3. Has a poor attention span and slow thought process. MOTOR: Normal tone, normal bulk of muscle. Moves all extremities equally. No pronator drift seen. SENSORY: Light touch, pinprick, proprioception, and vibration intact. DTRs are 2+ throughout. COORDINATION: [id number] intact. Toes are upgoing bilaterally. Gait is deferred for now. LABORATORY DATA: Reviewed. ASSESSMENT AND PLAN: This is a 51-year-old woman with known history of hypertension for which she was not taking any antihypertensives for the past 3 years, also daily alcohol and tobacco use as well as marijuana use, was using daily nonsteroidal anti-inflammatory drugs for headaches, who presented for nausea, vomiting, diffuse pressure headaches, chest pain. Noted to have some elevated blood pressures of 300/160 mmHg. Her MRI of the brain showed extensive signal abnormality in the brainstem, basal ganglia bilaterally , particularly the thalamus, suspicious for edema. There is extensive white matter signal abnormality in the cerebral hemispheres bilaterally. Her overall presentation is consistent with posterior reversible encephalopathy syndrome, which is commonly caused by hypertensive emergency/ malignant hypertension. . She also has a left retinal detachment for which she out of the left eye, she is seeing halos. She also has acute kidney injury, likely from hypertension as well as daily nonsteroidal anti-inflammatory drug use. At this time, recommend: 1. Hydrate the patient with sodium chloride at 100 mL per hour given acute kidney disease. 2. Slowly drop her blood pressures 20% at a time to an average blood pressure of 120-130 mmHg, that is the target. 3. Aspirin 81 mg p.o. daily for stroke prevention. 4. Could consider mannitol if necessary due to the vasogenic edema from underlying hypertensive emergency. 5. optho followup to repair the left retinal detachment since she is seeing halos out of the left eye. 5. Follow up with nephrology in regards to her acute kidney injury and continue with current present medical management. We will hold off seizure meds for now since the patient is not having any seizure-like activity. 6. Workup for Malignant hypertension. Her prognosis is guarded. The patient's with posterior reversible encephalopathy syndrome usually reverse in about anywhere from 3-6 months or even it takes up to a year for MRI changes to change. At this time, her EEG showed bilateral cerebral dysfunction, no evidence of any epileptiform activity, and continue with current present medical management. Thank you Herbert Anne MD Objective - Vital Signs/Intake and Output Vital Signs (last 24 hours): Temp Pulse Resp BP Pulse Ox 97.7 F 83 19 157/94 H 96 09/15/16 08:00 09/15/16 10:35 09/15/16 09:06 09/15/16 10:35 09/15/16 09:06 Intake and Output: 09/15/16 09/15/16 06:59 18:59 Intake Total 2150 Output Total 400 Balance 1750 - Medications Medications: Current Medications Amlodipine Besylate (Norvasc) 5 mg PO DAILY [facility] Last Admin: 09/15/16 10:28 Dose: 5 mg Aspirin (Ecotrin) 81 mg PO DAILY [facility] Last Admin: 09/15/16 10:34 Dose: 81 mg Carvedilol (Coreg) 3.125 mg PO BID [facility] Last Admin: 09/15/16 10:27 Dose: 3.125 mg Clonidine HCl (Catapres) 0.1 mg PO TID [facility] Last Admin: 09/15/16 10:35 Dose: 0.1 mg Docusate Sodium (Colace) 100 mg PO DAILY [facility] Last Admin: 09/15/16 10:28 Dose: 100 mg Famotidine (Pepcid) 20 mg PO DAILY [facility] Last Admin: 09/15/16 10:27 Dose: 20 mg Hydralazine HCl (Apresoline) 10 mg PO QID [facility] Last Admin: 09/15/16 10:26 Dose: 10 mg Nicardipine HCl (Cardene Iv Premix) 200 mls @ 50 mls/hr IV .Q4H PRN; Protocol; 5 MG/HR PRN Reason: TITRATE PER MD ORDER Last Admin: 09/15/16 07:44 Dose: 75 mls/hr Sodium Chloride (Sodium Chloride 0.9%) 1,000 mls @ 100 mls/hr IV .Q10H [facility] Last Admin: 09/15/16 10:33 Dose: 100 mls/hr Ceftriaxone Sodium (Rocephin 1 Gram Ivpb) 100 mls @ 100 mls/hr IVPB DAILY [facility] PRN Reason: Protocol Last Admin: 09/15/16 11:04 Dose: 100 mls/hr Isosorbide Mononitrate (Imdur) 30 mg PO DAILY [facility] Last Admin: 09/15/16 10:26 Dose: 30 mg Morphine Sulfate (Morphine) 2 mg IVP Q4H PRN PRN Reason: Pain, moderate (4-7) Last Admin: 09/14/16 18:29 Dose: 2 mg Ondansetron HCl (Zofran Inj) 4 mg IVP Q6H PRN PRN Reason: Nausea/Vomiting Last Admin: 09/13/16 23:02 Dose: 4 mg Polyethylene Glycol (Miralax) 17 gm PO DAILY PRN PRN Reason: Constipation Last Admin: 09/15/16 10:33 Dose: 17 gm - Labs Labs: 09/15/16 05:00 09/15/16 05:00 PT 10.7 Seconds (9.9-11.8) 09/13/16 10:30 INR 0.99 (0.93-1.08) 09/13/16 10:30 APTT 26.4 Seconds (23.7-30.8) 09/13/16 10:30
--- NOTE | 2016-09-15 12:58 | PN ---
DATE: 09/15/2016 SUBJECTIVE: The patient was seen in the intensive care unit. She remains on a nicardipine infusion and also continues to receive normal saline at 100 mL hour. She appears to be more alert than she was yesterday. She denies any headaches, but still reports some decrease in vision. There is no nausea, vomiting or abdominal pain. She also denies any chest pain or palpitations. Numerous family members are present at bedside. It is noted that the patient's urine output is increasing. OBJECTIVE: VITAL SIGNS: Blood pressure is 157/94 in the last 24-hour period, minimum blood pressure was 150/85 with a maximum of approximately 190/104. Heart rate is in the 80s, but has ranged in the 70s-80s with monitoring showing sinus rhythm. Oral temperature is 97.7. The patient has been afebrile since admission. Respiratory rate is 19, but has ranged from 17-35 breaths per minute in the last 24-hour period. Oxygen saturation is 96%, but has from 96- 100% on room air. I's and O's in the last 24-hour period are 4700/1000. HEENT: The patient was normocephalic and atraumatic without any sinus tenderness. NECK: There was no jugular venous distention that I could appreciate. CHEST: Lung francois on my exam were grossly clear without any rales, rhonchi or wheezing. CARDIAC: Had a regular rate and rhythm without any rubs. ABDOMEN: Soft, mildly distended, but nontender, without any rebounding, guarding or rigidity. There is no hepatosplenomegaly. There were no masses, pulsatile or otherwise. EXTREMITIES: Had trace dependent edema. NEUROLOGIC: The patient was nonfocal with the exception of her decreased vision. VASCULAR: Had no bruits. SKIN: Intact. GENITOURINARY: Had no suprapubic tenderness. LABORATORY STUDIES: White count today is 18.1 with an H and H of 9.8/27.4, and a platelet count of 195,000. There are 85% neutrophils, 6% lymphocytes, 9% monocytes. Transferrin saturation is noted to be 11% and ferritin is 54. Urinalysis was yellow, cloudy with a pH of 6.5, specific gravity of 1.015, protein of 100, large blood, but only 2-5 RBCs per high power field. There was large leukocyte esterase. Urine toxicology was positive only for cannabinoids. Sodium is 128, potassium is 4.2, chloride 95, bicarbonate 21, BUN/creatinine 64/4.2 with a glucose of 123. Still pending are plasma rennin activity, plasma aldosterone concentration as well as total and fractionated metanephrines. Blood cultures remain with no growth to date, and there is no new microbiology to report. IMPRESSION AND PLAN: The patient is a 51-year-old obese female (body mass index of 31 kg/m2) with chronic hypertension but noncompliant with antihypertensive therapy for the last 3 years or so with a systolic blood pressure routinely of 300 mmHg as an outpatient as per the patient when she visits her primary care physician; daily tobacco, alcohol and marijuana use; daily use of nonsteroidal antiinflammatory drugs (Aleve and Advil) for headaches which may actually have been secondary to her hypertension; admitted with nausea, vomiting, headaches, chest pain and noted to have a blood pressure of 300/160. She is also noted to have hypertensive encephalopathy as manifest radiographically as well as posterior reversible encephalopathy syndrome (PRES) . Additionally, the patient has acute kidney injury during this hospitalization which likely appears to have represented malignant hypertension as well as intravascular volume depletion from her vomiting which had been occurring for several days. 1. The patient remains on a Cardene infusion at present. She is also noted to be on carvedilol 3.125 mg orally twice daily, amlodipine 5 mg daily and hydralazine 10 mg orally 4 times a day as well. In anticipation of being able to discontinue her nicardipine infusion, we will increase her amlodipine from 5 mg daily to 10 mg daily. 2. Echocardiogram performed during this hospitalization reveals mild left ventricular hypertrophy with decreased left ventricular systolic function of 35- 40%. Given the fact that she has acute kidney injury, I would not start her on an KALYAN inhibitor or an angiotensin receptor cordelia, but I agree with hydralazine when she is currently receiving at 10 mg 4 times a day. We will increase this to 25 mg orally 3 times a day for afterload reduction, and continue isosorbide mononitrate for preload reduction. 3. On the basis of the patient's elevated troponins which are consistent with acute coronary syndrome and another manifestation of hypertensive emergency, I agree with maintaining the patient on a beta cordelia. She is tolerating 3.125 mg orally twice daily well, and so we will increase this for now to 6.25 mg orally twice daily. 4. In this patient, there is an evidence base for beta cordelia therapy as well as hydralazine and isosorbide; however, I am concerned about clonidine in a patient with demonstrated noncompliance, and I am not confident that she would continue to take it. Since clonidine is a new medication for her started today , we will discontinue standing clonidine and instead give it on a p.r.n. basis with 0.1 mg orally every 4 hours as needed for a systolic blood pressure of greater than 160 or a diastolic blood pressure of greater than 100. 5. Ultimately, given the fact that the patient appears to have underlying chronic kidney disease, she will certainly require a diuretic. If her GFR settles out at greater than 30 mL per minute, we can start her on chlorthalidone 25 mg orally daily; however, it would not be effective at her current level of renal function. If the labs suggest hyperaldosteronism then, despite her low GFR, we could cautiously attempt spironolactone at perhaps 12.5 mg orally twice daily. For now, however, given the proximity to the patient's admission for hypertensive emergency, I would not start a diuretic at this time. 6. Labs reveal anemia and, since the patient has chronic kidney disease, a ferritin of less than 100 or a transferrin saturation of less than 20%, is indicative of iron deficiency. Given the fact that the patient has uncontrolled hypertension, she would not be a candidate for any erythropoietic stimulating agent at this time and so, since her hemoglobin has drifted down from 12.5 to 9.8, we will give her intravenous iron to help mitigate against further decreases in her hemoglobin at a dose of 200 mg intravenously daily for 5 days beginning tomorrow. 7. The patient is noted to be hyponatremic. The only hypotonic fluid she is being given is the D5W in which the nicardipine is being mixed. Although she is hyponatremic, at this point I do not feel compelled to initiate fluid restriction in this patient, but certainly as her diet is advanced she will need sodium restriction. 8. For deep venous thrombosis prophylaxis, we can use SCDs. For gastrointestinal prophylaxis, the patient is on renally dosed famotidine. 9. With respect to her chronic kidney disease, she is also noted to be hyperphosphatemic at 5.9; however, this may resolve itself if her renal function continues to improve, and we will check her labs over the next several days. Additionally, I will add an intact PTH to her next set of labs as well. 10. For her acute coronary syndrome, the patient also remains on aspirin as well as carvedilol. Transaminases are within normal limits and so we will start her on atorvastatin 20 mg orally as well. The above was discussed with the patient as well as family members at bedside. Review of systems, past medical history, social history and family history were all reviewed and there were no new changes. More than 35 minutes spent in the care of this ICU patient today. Israel Mcgarry MD, PEPE cc: [id number] TT: 09/15/2016 12:57:16 Confirmation # [id number] Dictation # [id number] ellie LANE
--- NOTE | 2016-09-15 14:01 | VASCULAR ---
PROCEDURE: Ultrasound and fluoroscopically placed left upper extremity PICC line. HISTORY: Hypertensive crisis. Acute renal failure. Needs PICC line. PHYSICIAN(S): Charlie Donis MD. TECHNIQUE: The relative risks and indications of the procedure were explained to the patient and consent obtained. The patient was placed supine on the arteriogram table and the left arm prepped and draped in the usual sterile fashion. A tourniquet was applied to the left axilla. 1% Xylocaine was used to anesthetize the skin and soft tissues at the puncture site above the elbow. The left basilic vein was punctured under direct ultrasound guidance with a micropuncture set. A 0.018 guidewire was advanced centrally and used to measure the length to the SVC/RA junction. A 5 Norwegian single-lumen PICC line 43 cm long was advanced to the SVC/RA junction. The catheter was flushed and secured. The patient tolerated the procedure well. IMPRESSION: 1. Ultrasound and fluoroscopically placed left upper extremity PICC line. A 5 Norwegian single-lumen PICC line 43 cm long was advanced to the SVC/RA junction.
--- NOTE | 2016-09-15 14:16 | PN ---
DATE: 09/15/2016 The patient denies any chest pain or shortness of breath at this time. Blood pressure is better cont rolled. PHYSICAL EXAMINATION: VITAL SIGNS: Blood pressure 140/84, heart rate 76, temperature 98.3, respirations 22. HEENT: Normocephalic. NECK: No JVD. CHEST: Clear. HEART: S1, S2 regular. EXTREMITIES: No edema. LABORATORIES: Today's hemoglobin and hematocrit 9.8 and 27.4, white count and platelet count are 18. 1 and 195,000. Today's SMA-7: Sodium 128, potassium 4.2, chloride 95, CO2 of 21, glucose 123, BUN 6 4, creatinine 4.2. Today's troponin is 2.24. Repeat EKG yesterday revealed sinus rhythm, LVH with r epolarization changes. ASSESSMENT: 1. Hypertensive emergency with brain MRI findings suggestive of acute encephalopathy versus extensiv e acute myelinating disease versus toxic insult because of underlying metabolic abnormality. 2. Cannabinoids abuse. 3. Advanced renal insufficiency. 4. Borderline troponin elevation. RECOMMENDATIONS: The case was discussed with the field radio operator, Dr. Myers. Continue current IV Car dene. Continue oral hydralazine, clonidine, Coreg, aspirin, Lipitor and Norvasc. The patient is not a suitable candidate for cardiac catheterization at least at this time because of acute MRI findings as well as advanced renal insufficiency. Continued medical therapy is recommended and justified. Misael Carson MD cc: [id number] TT: 09/15/2016 14:15:45 Confirmation # [id number] Dictation # [id number]
[2016-09-15] MEDS ORDERED: Linezolid 600 mg in D5W 300 ml 300 ML IVPB SCH (22:00)
[2016-09-16 06:29] LABS: ADD MANUAL DIFF? NO
[2016-09-16 06:43] LABS: BILIRUBIN,TOTAL 0.7 mg/dL (0.2-1.3); CALCIUM 8.7 mg/dL (8.4-10.5); MAGNESIUM 2.1 mg/dL (1.7-2.2); PHOSPHOROUS 5.9 mg/dL (2.5-4.5); POTASSIUM 3.9 mmol/L (3.6-5.0); TOTAL PROTEIN 6.3 g/dL (5.8-8.3)
[2016-09-16 06:49] LABS: BASO # 0.01 K/mm3 (0.0-2.0); BASO % 0.1 % (0.0-3.0); EOS # 0.1 (0.0-0.7); EOS % 0.5 % (1.5-5.0); GRAN # 12.53 (1.4-6.5); GRAN % 84.8 % (50.0-68.0); LYMPH # 0.8 (1.2-3.4); LYMPH % 5.6 % (22.0-35.0); MEAN CELL VOLUME 83.7 fL (80.0-105.0); MEAN CORPUSCULAR HGB CONC 35.8 g/dl (31.0-37.0); MEAN PLATELET VOLUME 12.1 fl (7.0-11.0); MONO # 1.3 (0.1-0.6); PLATELET COUNT 168 10^3/uL (120.0-450.0); RED CELL DISTRIBUTION WIDTH 18.5 % (11.5-14.5); WHITE BLOOD COUNT 14.8 10^3/ul (4.5-11.0)
[2016-09-16 07:03] LABS: HEMATOCRIT 22.6 % (36.0-48.0)
--- NOTE | 2016-09-16 08:19 | CP.CCUPN ---
<Madelyn Raya - Last Filed: 09/16/16 08:52> CCU Subjective - Physician Review Subjective (Free Text): 09/16/16 08:26 Pt s&eBen VERDUGO. Pt has no complaints. Denies F/C/N/V/D/CP/SOB/abd pain/NEIL/ dizziness. Reports blurry vision on the L eye. Tolerating diet. Had L PICC yesterday and tolerated it well. No BM since the admission. Void+ 09/16/16 08:30 CCU Objective - Vital Signs / Intake & Output Vital Signs (Last 4 hours): Vital Signs Pulse Resp BP Pulse Ox 09/16/16 07:23 69 171/94 H 09/16/16 07:22 69 174/94 H 09/16/16 07:20 76 171/94 H 09/16/16 06:00 67 26 H 165/100 H 100 09/16/16 05:24 70 17 09/16/16 05:00 72 156/97 H 100 09/16/16 04:55 74 58 H 09/16/16 04:54 72 26 H 09/16/16 04:53 70 17 09/16/16 04:33 70 23 100 Intake and Output (Last 8hrs): Intake & Output 09/15/16 09/16/16 09/16/16 22:59 06:59 14:59 Intake Total 1680 1350 Output Total 550 300 Balance 1130 1050 Weight 176 lb 9 oz Intake: IV 1200 1200 Left Upper arm 1200 IVF 1200 Oral 480 150 Output: Urine 550 300 Urethral (Cano) 450 Urine, Voided 100 300 Other: Voiding Method Indwelling Catheter # Voids Urine, Voided 1 # Bowel Movements 0 - Physical Exam Head: Positive for: Atraumatic, Normocephalic Pupils: Positive for: PERRL (No vision left eye) Extroacular Muscles: Positive for: EOMI Conjunctiva: Positive for: Normal Mouth: Positive for: Moist Mucous Membranes Neck: Positive for: Normal Range of Motion Respiratory/Chest: Positive for: Clear to Auscultation, Good Air Exchange, Tender to Palpation (Tenderness to chest wall). Negative for: Respiratory Distress, Accessory Muscle Use Cardiovascular: Positive for: Regular Rate and Rhythm, Normal S1, S2. Negative for: Murmurs Abdomen: Positive for: Normal Bowel Sounds. Negative for: Tenderness, Distention, Peritoneal Signs, Rebound Back: Positive for: Normal Inspection Upper Extremity: Positive for: Normal Inspection. Negative for: Cyanosis, Edema Lower Extremity: Positive for: Normal Inspection, NORMAL PULSES. Negative for: Edema, CALF TENDERNESS Neurological: Positive for: GCS=15, CN II-XII Intact, Speech Normal Skin: Positive for: Warm, Dry, Normal Color. Negative for: Rashes Psychiatric: Positive for: Alert, Oriented x 3, Normal Insight, Normal Concentration - Medications Active Medications: Active Medications Generic Name Dose Route Start Last Admin Trade Name Freq PRN Reason Stop Dose Admin Amlodipine Besylate 10 mg 09/15/16 12:05 Norvasc PO DAILY ANNA Aspirin 81 mg 09/14/16 10:00 09/15/16 10:34 Ecotrin PO 81 mg DAILY ANNA Administration Atorvastatin Calcium 20 mg 09/15/16 17:00 09/15/16 17:47 Lipitor PO 20 mg DIN ANNA Administration Carvedilol 6.25 mg 09/15/16 12:13 09/16/16 07:22 Coreg PO 6.25 mg BID ANNA Administration Clonidine HCl 0.1 mg 09/15/16 12:07 09/16/16 07:20 Catapres PO 0.1 mg Q4H PRN Administration hypertension Docusate Sodium 100 mg 09/14/16 10:00 09/15/16 10:28 Colace PO 100 mg DAILY ANNA Administration Famotidine 20 mg 09/14/16 10:00 09/15/16 10:27 Pepcid PO 20 mg DAILY ANNA Administration Hydralazine HCl 25 mg 09/15/16 14:00 09/16/16 07:23 Apresoline PO 25 mg TID ANNA Administration Nicardipine HCl 200 mls @ 50 mls/hr 09/13/16 11:20 09/15/16 15:30 Cardene Iv Premix IV 0 mg/hr .Q4H PRN Titration TITRATE PER MD ORDER Protocol 5 MG/HR Sodium Chloride 1,000 mls @ 100 mls/hr 09/15/16 09:30 09/15/16 22:00 Sodium Chloride 0.9% IV 100 mls/hr .Q10H ANNA Administration Ceftriaxone Sodium 100 mls @ 100 mls/hr 09/15/16 11:00 09/15/16 11:04 Rocephin 1 Gram Ivpb IVPB 100 mls/hr DAILY ANNA Administration Protocol Iron Sucrose 200 mg/ Sodium 110 mls @ 110 mls/hr 09/16/16 10:00 Chloride IVPB 09/21/16 10:01 DAILY ANNA Isosorbide Mononitrate 30 mg 09/15/16 10:00 09/15/16 10:26 Imdur PO 30 mg DAILY ANNA Administration Morphine Sulfate 2 mg 09/14/16 07:39 09/14/16 18:29 Morphine IVP 2 mg Q4H PRN Administration Pain, moderate (4-7) Polyethylene Glycol 17 gm 09/15/16 08:03 09/15/16 10:33 Miralax PO 17 gm DAILY PRN Administration Constipation - Patient Studies Lab Studies: Microbiology Studies 09/14/16 04:09 Blood Culture - Preliminary Blood NO GROWTH AFTER 48 HOURS 09/14/16 03:45 S.aureus & Coag-Neg Staph PNA FISH - Final Blood Blood Culture - Preliminary Gram Pos Cocci In Clusters Gram Stain - Final 09/13/16 13:45 MRSA Culture (Admit) - Final Naris MRSA NOT DETECTED Lab Studies 09/16/16 09/15/16 09/13/16 Range/Units 06:20 19:20 19:51 WBC 14.8 H (4.5-11.0) 10^3/ul RBC 2.70 L (3.5-6.1) 10^6/uL Hgb 8.1 L (12.0-16.0) gm/dL Hct 22.6 L (36.0-48.0) % MCV 83.7 (80.0-105.0) fL MCH 30.0 (25.0-35.0) pg MCHC 35.8 (31.0-37.0) g/dl RDW 18.5 H (11.5-14.5) % Plt Count 168 (120.0-450.0) 10^3/uL MPV 12.1 H (7.0-11.0) fl Gran % 84.8 H (50.0-68.0) % Lymph % (Auto) 5.6 L (22.0-35.0) % Lawrence % (Auto) 9.0 H (1.0-6.0) % Eos % (Auto) 0.5 L (1.5-5.0) % Baso % (Auto) 0.1 (0.0-3.0) % Gran # 12.53 H (1.4-6.5) Lymph # 0.8 L (1.2-3.4) Lawrence # 1.3 H (0.1-0.6) Eos # 0.1 (0.0-0.7) Baso # 0.01 (0.0-2.0) K/mm3 Haptoglobin <15 L (43-212) mg/dL Sodium 128 L (132-148) mmol/L Potassium 3.9 (3.6-5.0) mmol/L Chloride 97 L (98-107) mmol/L Carbon Dioxide 20 L (21-33) mmol/L Anion Gap 15 (10-20) BUN 76 H (7-21) mg/dL Creatinine 4.5 H (0.5-1.4) mg/dL Est GFR ( Amer) 13 Est GFR (Non-Af Amer) 10 Random Glucose 99 (70-110) mg/dL Calcium 8.7 (8.4-10.5) mg/dL Phosphorus 5.9 H (2.5-4.5) mg/dL Magnesium 2.1 (1.7-2.2) mg/dL Total Bilirubin 0.7 (0.2-1.3) mg/dL AST 27 (15-39) U/L ALT 26 (7-56) U/L Alkaline Phosphatase 117 (38-133) U/L Total Protein 6.3 (5.8-8.3) g/dL Albumin 3.2 (3.0-4.8) g/dL Globulin 3.2 gm/dL Albumin/Globulin Ratio 1.0 L (1.1-1.8) Procalcitonin 0.95 H (0.19-0.49) NG/ML Laboratory Results - last 24 hr 09/13/16 09/15/16 09/16/16 19:51 19:20 06:20 WBC 14.8 H RBC 2.70 L Hgb 8.1 L Hct 22.6 L MCV 83.7 MCH 30.0 MCHC 35.8 RDW 18.5 H Plt Count 168 MPV 12.1 H Gran % 84.8 H Lymph % (Auto) 5.6 L Lawrence % (Auto) 9.0 H Eos % (Auto) 0.5 L Baso % (Auto) 0.1 Gran # 12.53 H Lymph # 0.8 L Lawrence # 1.3 H Eos # 0.1 Baso # 0.01 Haptoglobin <15 L Sodium 128 L Potassium 3.9 Chloride 97 L Carbon Dioxide 20 L Anion Gap 15 BUN 76 H Creatinine 4.5 H Est GFR ( Amer) 13 Est GFR (Non-Af Amer) 10 Random Glucose 99 Calcium 8.7 Phosphorus 5.9 H Magnesium 2.1 Total Bilirubin 0.7 AST 27 ALT 26 Alkaline Phosphatase 117 Total Protein 6.3 Albumin 3.2 Globulin 3.2 Albumin/Globulin Ratio 1.0 L Procalcitonin 0.95 H Review of Systems - Constitutional Constitutional: absent: Fever, Chills, Weakness, Malaise - EENT Eyes: Blurred Vision Ears: UNREMARKABLE. absent: Dizziness Nose/Mouth/Throat: UNREMARKABLE - Breasts Breasts: UNREMARKABLE - Cardiovascular Cardiovascular: UNREMARKABLE. absent: Chest Pain, Chest Pain at Rest - Respiratory Respiratory: UNREMARKABLE. absent: Cough, Dyspnea, Hemoptysis - Genitourinary Genitourinary: UNREMARKABLE - Musculoskeletal Musculoskeletal: UNREMARKABLE. absent: Atrophy, Back Pain - Neurological Neurological: UNREMARKABLE. absent: Abnormal Hearing, Abnormal Movements, Behavioral Changes, Confusion, Dizziness, Numbness, Restless Legs, Sensory Deficit, Syncope, Weakness Critical Care Progress Note - Ventilator Checklist Head of Bed 30 Degrees: Yes Daily Sedation Vacation: No - Nutrition Nutrition: Nutrition Category Date Time Status Heart Healthy Diet [DIET] Diets 09/15/16 Dinner Ordered Assessment/Plan - Assessment and Plan (Free Text) Assessment: 51 yo F w h/o uncontrolled HTN admitted to ICU with hypertensive emergency, PRES syndrome, cardiomyopathy, ESTEFANI, vitreous hemorrhage, left retinal detachment. Plan: Neuro: Posterior Reversible Encephalopathy AAOx3, NAD, No seizure activity MRI head shows extensive brainstem, basal ganglia and thalamic edema, no acute infarct or hemorrhage Maintain normothermia EEG showed diffuse slowing c/w BL cerebral dysfunction, no epileptiform activity Will need optho followup when stable NS @100 Neuro following CV: SBP 120s-170s. Goal 120-130. Continue Norvasc, Coreg, Clonidine, Imdur. Off nicardipine drip since yesterday Hydralazine/isosorbide for afterload reduction as EF 35% Continue ASA for stroke prevention Cont. Statin No renal artery stenosis seen on Duplex. Medical renal Disease BL kidneys Pheochromocytoma workup pending as per nephrology Maintain MAP >65 Pulm: No acute issues, able to protect airway. Comfortable and saturating in high 90s-100% on room air Maintain spo2>90 GI: GI ppx Pepcid, Colace, Miralax Qday ORN constipation HHD Renal: ESTEFANI stable, not improving. Cr: 4.5 <-4.2 Cont. IVF to NS @100cc/hr Continue monitoring renal function and Urine output Hypokalemia resolved avoid nephrotoxics, euvolemia Nephro following BP control within likely renal autoregulatory range Endo: No acute issues A1C 4.2 Maintain euglycemia 140-180 ID: UA significant for Large LE, many bacteria, TNTC WBCs. Leukocytosis :18.1-> 14.5 today. Has PICC COnt. Rocephin Urine culture Blood cultures: Gram + cocci cluster Heme: Slightly Hb drop, no signs of bleeding, likely dilutional : H/H =8/22.6 Iron deficiency found on labwork. Iron supplementation DVT/GI ppx: OOB, Pepcid Dispo: Tranfer to Tele ICU attending <Rafi Myers - Last Filed: 09/16/16 16:20> CCU Objective - Vital Signs / Intake & Output Vital Signs (Last 4 hours): Vital Signs Pulse Resp BP Pulse Ox 09/16/16 14:55 77 170/81 H 09/16/16 14:54 77 170/81 H 09/16/16 13:33 70 19 09/16/16 13:32 71 09/16/16 13:27 70 09/16/16 13:26 67 18 09/16/16 13:25 72 17 09/16/16 13:24 72 18 09/16/16 13:23 72 22 09/16/16 13:22 71 15 09/16/16 13:21 71 20 09/16/16 13:19 70 170/100 H 09/16/16 13:15 70 170/100 H 09/16/16 13:11 76 23 170/100 H 89 L 09/16/16 13:00 76 17 185/110 H 75 L 09/16/16 12:55 77 17 09/16/16 12:47 75 09/16/16 12:45 72 17 09/16/16 12:25 71 38 H 175/113 H 100 Intake and Output (Last 8hrs): Intake & Output 09/16/16 09/16/16 09/16/16 06:59 14:59 22:59 Intake Total 1350 Output Total 300 Balance 1050 Weight 176 lb 9 oz Intake: IV 1200 Left Upper arm 1200 Oral 150 Output: Urine 300 Urine, Voided 300 Other: # Voids Urine, Voided 1 - Medications Active Medications: Active Medications Generic Name Dose Route Start Last Admin Trade Name Freq PRN Reason Stop Dose Admin Amlodipine Besylate 10 mg 09/15/16 12:05 09/16/16 10:30 Norvasc PO Not Given DAILY ANNA Aspirin 81 mg 09/14/16 10:00 09/16/16 10:32 Ecotrin PO 81 mg DAILY ANNA Administration Atorvastatin Calcium 20 mg 09/15/16 17:00 09/15/16 17:47 Lipitor PO 20 mg DIN ANNA Administration Carvedilol 6.25 mg 09/15/16 12:13 09/16/16 10:29 Coreg PO Not Given BID ANNA Clonidine HCl 0.2 mg 09/16/16 14:00 Catapres PO TID ANNA Docusate Sodium 100 mg 09/14/16 10:00 09/16/16 10:32 Colace PO 100 mg DAILY ANNA Administration Famotidine 20 mg 09/14/16 10:00 09/16/16 10:32 Pepcid PO 20 mg DAILY ANNA Administration Hydralazine HCl 50 mg 09/16/16 13:46 Apresoline PO TID ANNA Ceftriaxone Sodium 100 mls @ 100 mls/hr 09/15/16 11:00 09/16/16 10:38 Rocephin 1 Gram Ivpb IVPB 100 mls/hr DAILY ANNA Administration Protocol Iron Sucrose 200 mg/ Sodium 110 mls @ 110 mls/hr 09/16/16 10:00 09/16/16 10:40 Chloride IVPB 09/21/16 10:01 110 mls/hr DAILY ANNA Administration Isosorbide Mononitrate 30 mg 09/15/16 10:00 09/16/16 10:29 Imdur PO Not Given DAILY ANNA Lorazepam 0.5 mg 09/16/16 08:36 Ativan IVP Q4H PRN Anxiety Protocol Morphine Sulfate 2 mg 09/14/16 07:39 09/14/16 18:29 Morphine IVP 2 mg Q4H PRN Administration Pain, moderate (4-7) Polyethylene Glycol 17 gm 09/15/16 08:03 09/15/16 10:33 Miralax PO 17 gm DAILY PRN Administration Constipation - Patient Studies Lab Studies: Microbiology Studies 09/15/16 11:27 Urine Culture - Preliminary Urine,Cano Gram Negative Samson 09/14/16 03:45 S.aureus & Coag-Neg Staph PNA FISH - Final Blood Blood Culture - Preliminary Gram Positive Cocci Gram Stain - Final 09/14/16 04:09 Blood Culture - Preliminary Blood NO GROWTH AFTER 48 HOURS Lab Studies 09/16/16 09/15/16 09/15/16 Range/Units 06:20 19:20 06:00 WBC 14.8 H (4.5-11.0) 10^3/ul RBC 2.70 L (3.5-6.1) 10^6/uL Hgb 8.1 L (12.0-16.0) gm/dL Hct 22.6 L (36.0-48.0) % MCV 83.7 (80.0-105.0) fL MCH 30.0 (25.0-35.0) pg MCHC 35.8 (31.0-37.0) g/dl RDW 18.5 H (11.5-14.5) % Plt Count 168 (120.0-450.0) 10^3/uL MPV 12.1 H (7.0-11.0) fl Gran % 84.8 H (50.0-68.0) % Lymph % (Auto) 5.6 L (22.0-35.0) % Lawrence % (Auto) 9.0 H (1.0-6.0) % Eos % (Auto) 0.5 L (1.5-5.0) % Baso % (Auto) 0.1 (0.0-3.0) % Gran # 12.53 H (1.4-6.5) Lymph # 0.8 L (1.2-3.4) Lawrence # 1.3 H (0.1-0.6) Eos # 0.1 (0.0-0.7) Baso # 0.01 (0.0-2.0) K/mm3 Sodium 128 L (132-148) mmol/L Potassium 3.9 (3.6-5.0) mmol/L Chloride 97 L (98-107) mmol/L Carbon Dioxide 20 L (21-33) mmol/L Anion Gap 15 (10-20) BUN 76 H (7-21) mg/dL Creatinine 4.5 H (0.5-1.4) mg/dL Est GFR ( Amer) 13 Est GFR (Non-Af Amer) 10 Random Glucose 99 (70-110) mg/dL Calcium 8.7 (8.4-10.5) mg/dL Phosphorus 5.9 H (2.5-4.5) mg/dL Magnesium 2.1 (1.7-2.2) mg/dL Total Bilirubin 0.7 (0.2-1.3) mg/dL AST 27 (15-39) U/L ALT 26 (7-56) U/L Alkaline Phosphatase 117 (38-133) U/L Total Protein 6.3 (5.8-8.3) g/dL Albumin 3.2 (3.0-4.8) g/dL Globulin 3.2 gm/dL Albumin/Globulin Ratio 1.0 L (1.1-1.8) Procalcitonin 0.95 H (0.19-0.49) NG/ML PTH Intact Whole Molec 136 H (14-64) pg/mL Plasma Metanephrine (<=57) pg/mL Plasma Normetanephrine (<=148) pg/mL Plas Total Metaneph (<=205) pg/mL 09/13/16 Range/Units 14:14 WBC (4.5-11.0) 10^3/ul RBC (3.5-6.1) 10^6/uL Hgb (12.0-16.0) gm/dL Hct (36.0-48.0) % MCV (80.0-105.0) fL MCH (25.0-35.0) pg MCHC (31.0-37.0) g/dl RDW (11.5-14.5) % Plt Count (120.0-450.0) 10^3/uL MPV (7.0-11.0) fl Gran % (50.0-68.0) % Lymph % (Auto) (22.0-35.0) % Lawrence % (Auto) (1.0-6.0) % Eos % (Auto) (1.5-5.0) % Baso % (Auto) (0.0-3.0) % Gran # (1.4-6.5) Lymph # (1.2-3.4) Lawrence # (0.1-0.6) Eos # (0.0-0.7) Baso # (0.0-2.0) K/mm3 Sodium (132-148) mmol/L Potassium (3.6-5.0) mmol/L Chloride (98-107) mmol/L Carbon Dioxide (21-33) mmol/L Anion Gap (10-20) BUN (7-21) mg/dL Creatinine (0.5-1.4) mg/dL Est GFR ( Amer) Est GFR (Non-Af Amer) Random Glucose (70-110) mg/dL Calcium (8.4-10.5) mg/dL Phosphorus (2.5-4.5) mg/dL Magnesium (1.7-2.2) mg/dL Total Bilirubin (0.2-1.3) mg/dL AST (15-39) U/L ALT (7-56) U/L Alkaline Phosphatase (38-133) U/L Total Protein (5.8-8.3) g/dL Albumin (3.0-4.8) g/dL Globulin gm/dL Albumin/Globulin Ratio (1.1-1.8) Procalcitonin (0.19-0.49) NG/ML PTH Intact Whole Molec (14-64) pg/mL Plasma Metanephrine 181 H (<=57) pg/mL Plasma Normetanephrine 614 H (<=148) pg/mL Plas Total Metaneph 795 H (<=205) pg/mL Laboratory Results - last 24 hr 09/13/16 09/15/16 09/15/16 14:14 06:00 19:20 WBC RBC Hgb Hct MCV MCH MCHC RDW Plt Count MPV Gran % Lymph % (Auto) Lawrence % (Auto) Eos % (Auto) Baso % (Auto) Gran # Lymph # Lawrence # Eos # Baso # Sodium Potassium Chloride Carbon Dioxide Anion Gap BUN Creatinine Est GFR ( Amer) Est GFR (Non-Af Amer) Random Glucose Calcium Phosphorus Magnesium Total Bilirubin AST ALT Alkaline Phosphatase Total Protein Albumin Globulin Albumin/Globulin Ratio Procalcitonin 0.95 H PTH Intact Whole Molec 136 H Plasma Metanephrine 181 H Plasma Normetanephrine 614 H Plas Total Metaneph 795 H 09/16/16 06:20 WBC 14.8 H RBC 2.70 L Hgb 8.1 L Hct 22.6 L MCV 83.7 MCH 30.0 MCHC 35.8 RDW 18.5 H Plt Count 168 MPV 12.1 H Gran % 84.8 H Lymph % (Auto) 5.6 L Lawrence % (Auto) 9.0 H Eos % (Auto) 0.5 L Baso % (Auto) 0.1 Gran # 12.53 H Lymph # 0.8 L Lawrence # 1.3 H Eos # 0.1 Baso # 0.01 Sodium 128 L Potassium 3.9 Chloride 97 L Carbon Dioxide 20 L Anion Gap 15 BUN 76 H Creatinine 4.5 H Est GFR ( Amer) 13 Est GFR (Non-Af Amer) 10 Random Glucose 99 Calcium 8.7 Phosphorus 5.9 H Magnesium 2.1 Total Bilirubin 0.7 AST 27 ALT 26 Alkaline Phosphatase 117 Total Protein 6.3 Albumin 3.2 Globulin 3.2 Albumin/Globulin Ratio 1.0 L Procalcitonin PTH Intact Whole Molec Plasma Metanephrine Plasma Normetanephrine Plas Total Metaneph EKG/Cardiology Studies: Cardiology / EKG Studies 09/16/16 10:55 EKG [ELECTROCARDIOGRAM] Routine Comment: Reason For Exam: follow up Critical Care Progress Note - Nutrition Nutrition: Nutrition Category Date Time Status Heart Healthy Diet [DIET] Diets 09/15/16 Dinner Ordered Addendum Addendum: 09/16/16 16:12 patient was seen and examined at bedside shoulder to shoulder with Dr. Madelyn Raya. Her note reflects my exam, assessment and plan except as below. Meds/Labs/ONE reviewed. 51 yo female who was admitted with hypertensive emergency, with now better controlled BP, but still some residual end organ dysfunction, most likely chronic due to long standing uncontrolled hypertension. 1. systolic and diastolic LV dysfunction: afterload reduction, cardio f/u. 2. troponin leak: likely due to combination of factors: PRES, ESTEFANI, CAD-->aspirin , cardio f/u 3. ESTEFANI/CKD: BP control within renal autoregulatory range, nephro f/u 4. PRES: BP control, neuro f/u Ok to downgrade to tele ccm time 40 min
--- NOTE | 2016-09-16 09:10 | CP.PCM.CON ---
History of Present Illness - History of Present Illness History of Present Illness: 51 year old female with PMH of HTN, history of glaucoma, history of cataracts, sickle cell trait, S/P Caesarian section, obesity with BMI 31 came in to [facility] because of lightheadedness and headache and was noted to be in hypertensive emergency with acute renal failure and probable Posterior Reversible Encephalopathy Syndrome (PRES) as noted on MRI of the brain. She is currently being treated for this. As part of the initial work up, the patient underwent cultures and it has been noted that one of the blood culture bottles has gram positive cocci in clusters. Infectious Diseases consult is requested to further evaluate and manage. Currently she has no headache or dizziness. Denies chest pain, no SOB at rest, no fever or chills, no sore throat, no rhinorrhea, no cough, no abdominal pain, no diarrhea, no dysuria, vaginal discharge, no skin rash. Review of Systems - Review of Systems All systems: reviewed and no additional remarkable complaints except (as per HPI ) Past Patient History - Infectious Disease Hx of Infectious Diseases: None - Past Medical History & Family History Past Medical History?: Yes Pertinent Family History: family history of coronary artery disease and HTN - Past Social History Smoking Status: Former Smoker Alcohol: Other (used to drink everyday) Drugs: Cannabis Home Situation {Lives}: With Family - CARDIAC Hx Hypertension: Yes - HEENT Hx Blind: Yes Hx Cataracts: Yes - MUSCULOSKELETAL/RHEUMATOLOGICAL Hx Falls: No - PSYCHIATRIC Hx Substance Use: Yes - SURGICAL HISTORY Hx Section: Yes Hx Eye Surgery: Yes - ANESTHESIA Hx Anesthesia Reactions: No Hx Malignant Hyperthermia: No Meds Home Medications: Home Medication List Medication Instructions Recorded Confirmed Type Aspirin [Ecotrin] 81 mg PO DAILY tabec 09/14/16 Rx Carvedilol [Coreg] 3.125 mg PO BID tab 09/14/16 Rx Docusate [Colace] 100 mg PO DAILY cap 09/14/16 Rx Famotidine [Pepcid] 20 mg PO DAILY tab 09/14/16 Rx Morphine 2 mg IVP Q4H PRN #0 ml 09/14/16 Rx Ondansetron [Zofran Inj] 4 mg IVP Q6H PRN #0 vial 09/14/16 Rx Potassium Chloride [Potassium 20 meq IV .Q10H6M vial 09/14/16 Rx Chloride Inj] Allergies/Adverse Reactions: Allergies Allergy/AdvReac Type Severity Reaction Status Date / Time No Known Allergies Allergy Verified 12/09/11 17:22 - Medications Medications: Current Medications Amlodipine Besylate (Norvasc) 10 mg PO DAILY [facility] Aspirin (Ecotrin) 81 mg PO DAILY [facility] Last Admin: 09/15/16 10:34 Dose: 81 mg Atorvastatin Calcium (Lipitor) 20 mg PO DIN [facility] Last Admin: 09/15/16 17:47 Dose: 20 mg Carvedilol (Coreg) 6.25 mg PO BID [facility] Last Admin: 09/15/16 17:47 Dose: 6.25 mg Clonidine HCl (Catapres) 0.1 mg PO Q4H PRN PRN Reason: hypertension Last Admin: 09/15/16 15:07 Dose: 0.1 mg Docusate Sodium (Colace) 100 mg PO DAILY [facility] Last Admin: 09/15/16 10:28 Dose: 100 mg Famotidine (Pepcid) 20 mg PO DAILY [facility] Last Admin: 09/15/16 10:27 Dose: 20 mg Hydralazine HCl (Apresoline) 25 mg PO TID [facility] Last Admin: 09/15/16 17:46 Dose: 25 mg Nicardipine HCl (Cardene Iv Premix) 200 mls @ 50 mls/hr IV .Q4H PRN; Protocol; 5 MG/HR PRN Reason: TITRATE PER MD ORDER Last Titration: 09/15/16 15:30 Dose: 0 mg/hr Sodium Chloride (Sodium Chloride 0.9%) 1,000 mls @ 100 mls/hr IV .Q10H [facility] Last Admin: 09/15/16 10:33 Dose: 100 mls/hr Ceftriaxone Sodium (Rocephin 1 Gram Ivpb) 100 mls @ 100 mls/hr IVPB DAILY [facility] PRN Reason: Protocol Last Admin: 09/15/16 11:04 Dose: 100 mls/hr Iron Sucrose 200 mg/ Sodium (Chloride) 110 mls @ 110 mls/hr IVPB DAILY [facility] Stop: 09/21/16 10:01 Linezolid (Zyvox 600mg/300ml D5w) 300 mls @ 200 mls/hr IVPB Q12 [facility] PRN Reason: Protocol Stop: 09/15/16 23:29 Last Admin: 09/15/16 21:53 Dose: 200 mls/hr Isosorbide Mononitrate (Imdur) 30 mg PO DAILY [facility] Last Admin: 09/15/16 10:26 Dose: 30 mg Morphine Sulfate (Morphine) 2 mg IVP Q4H PRN PRN Reason: Pain, moderate (4-7) Last Admin: 09/14/16 18:29 Dose: 2 mg Polyethylene Glycol (Miralax) 17 gm PO DAILY PRN PRN Reason: Constipation Last Admin: 09/15/16 10:33 Dose: 17 gm Physical Exam - Constitutional Appears: Non-toxic, No Acute Distress - Head Exam Head Exam: NORMAL INSPECTION - ENT Exam ENT Exam: Mucous Membranes Moist, Normal Oropharynx - Neck Exam Neck exam: Negative for: Lymphadenopathy, Meningismus - Respiratory Exam Respiratory Exam: Decreased Breath Sounds. absent: Rales - Cardiovascular Exam Cardiovascular Exam: +S1, +S2 - GI/Abdominal Exam GI & Abdominal Exam: Soft. absent: Tenderness Results - Vital Signs Recent Vital Signs: Last Vital Signs Temp 98.4 F 09/15/16 20:00 Pulse 74 09/15/16 20:00 Resp 25 H 09/15/16 20:00 BP 162/95 H 09/15/16 20:00 Pulse Ox 100 09/15/16 20:00 - Labs Result Diagrams: 09/16/16 06:20 09/16/16 06:20 Labs: Laboratory Results - last 24 hr 09/13/16 09/14/16 09/15/16 19:51 23:20 05:00 WBC 18.1 H RBC 3.32 L Hgb 9.8 L Hct 27.4 L MCV 82.5 MCH 29.5 MCHC 35.8 RDW 18.4 H Plt Count 195 Gran % 84.8 H Lymph % (Auto) 5.6 L [place] % (Auto) 9.3 H Eos % (Auto) 0.2 L Baso % (Auto) 0.1 Gran # 15.35 H Lymph # 1.0 L [place] # 1.7 H Eos # 0.0 Baso # 0.02 Haptoglobin <15 L Sodium 128 L Potassium 4.2 Chloride 95 L Carbon Dioxide 21 Anion Gap 16 BUN 64 H Creatinine 4.2 H Est GFR ( Amer) 14 Est GFR (Non-Af Amer) 11 Random Glucose 123 H Calcium 8.9 Total Bilirubin 1.1 AST 27 ALT 18 Alkaline Phosphatase 55 Troponin I 2.24 H* Total Protein 7.1 Albumin 3.6 Globulin 3.5 Albumin/Globulin Ratio 1.0 L Procalcitonin Urine Color Yellow Urine Appearance Cloudy Urine pH 6.5 Ur Specific [place] 1.015 Urine Protein 100 H Urine Glucose (UA) Negative Urine Ketones Negative Urine Blood Large H Urine Nitrate Negative Urine Bilirubin Negative Urine Urobilinogen 0.2 Ur Leukocyte Esterase Large H Urine RBC 2 - 5 Urine WBC Tntc Ur Epithelial Cells 0 - 2 Urine Bacteria Many 09/15/16 19:20 WBC RBC Hgb Hct MCV MCH MCHC RDW Plt Count Gran % Lymph % (Auto) [place] % (Auto) Eos % (Auto) Baso % (Auto) Gran # Lymph # [place] # Eos # Baso # Haptoglobin Sodium Potassium Chloride Carbon Dioxide Anion Gap BUN Creatinine Est GFR ( Amer) Est GFR (Non-Af Amer) Random Glucose Calcium Total Bilirubin AST ALT Alkaline Phosphatase Troponin I Total Protein Albumin Globulin Albumin/Globulin Ratio Procalcitonin 0.95 H Urine Color Urine Appearance Urine pH Ur Specific [place] Urine Protein Urine Glucose (UA) Urine Ketones Urine Blood Urine Nitrate Urine Bilirubin Urine Urobilinogen Ur Leukocyte Esterase Urine RBC Urine WBC Ur Epithelial Cells Urine Bacteria Assessment & Plan - Assessment and Plan (Free Text) Plan: Assessment Systemic Inflammatory Response Syndrome probably secondary to hypertensive urgency / emergency with associated Posterior Reversible Encephalopathy Syndrome (PRES) and acute renal failure, R/O sepsis from urinary tract infection Coagulase negative Staph in one blood cx bottle, R/O contamination HTN, poorly-controlled history of glaucoma history of cataracts sickle cell trait S/P Caesarian section obesity with BMI 31 Plan Patient has been on Rocephin pending urine cx; will repeat blood cx; gave one dose of IV Daptomycin Will monitor clinically
[2016-09-16] MEDS: cefTRIAXone 1 gm 100 ML IVPB SCH (10:38)
[2016-09-16] MEDS ORDERED: Bacitracin 500 Units/gm Oint Foilpak UD ONE (11:19)
--- NOTE | 2016-09-16 11:41 | CP.PCM.PN ---
Subjective - Date & Time of Evaluation Date of Evaluation: 09/16/16 Time of Evaluation: 11:00 - Subjective Subjective: Subjective: [id number] Unit: [id number] : 1965 Loc: CCU Room/Bed: [facility] Age/Sex: 51 / F ADM Status: ADM IN ADM Date: DIS Date: Progress note: DATE: 09/16/2016 CHIEF COMPLAINT: F/U for Confusion and abnormal MRI. SUBJECTIVE: Patient examined and bedside, still has mild leg weakness, no confusion. BP is elevated and fluctuates. Has decreased vision out of left eye. REVIEW OF SYSTEMS: A 14-point review of systems is negative except for the HPI. PAST MEDICAL HISTORY: Significant for hypertension, has not been taking medications for the past 3 years. No history of any prior seizures. MEDICATIONS: Medication that patient has been taking prior to admission were ibuprofen as well as Aleve p.r.n. basis. She was not on any antihypertensive medications the past few years. ALLERGIES: No known drug allergies. SOCIAL HISTORY: Notable for patient drinking at least 3 cans of beer per day. She states that she no longer drinks in the past few days because she was having vomiting. She smokes cigarettes as well as marijuana. Denies any other types of drugs. FAMILY HISTORY: Mother has type 2 diabetes mellitus, hypertension, and end- stage renal disease for which she is on hemodialysis. PHYSICAL EXAMINATION: VITAL SIGNS: Reviewed. GENERAL: The patient is sitting up in bed in no acute distress. HEENT: Atraumatic, normocephalic. PERRLA. Extraocular muscles intact. NECK: Supple, no JVD, no adenopathy noted. LUNGS: Clear to auscultation. No adventitious sounds. HEART: S1, S2, normal rate and rhythm. No murmurs, rubs, or gallops. ABDOMEN: Soft, nontender, nondistended. Bowel sounds present. EXTREMITIES: No clubbing, no cyanosis. Peripheral pulses 2+ felt bilaterally. NEUROLOGIC: The patient is alert, orientated to person, place, month and year. Speech is fluent, without any errors. Cranial nerves II-XII intact. Recall after 5 minutes is 2/3. Has a poor attention span and slow thought process. MOTOR: Normal tone, normal bulk of muscle. Moves all extremities equally. No pronator drift seen. SENSORY: Light touch, pinprick, proprioception, and vibration intact. DTRs are 2+ throughout. COORDINATION: [id number] intact. Toes are upgoing bilaterally. Gait is deferred for now. LABORATORY DATA: Reviewed. ASSESSMENT AND PLAN: This is a 51-year-old woman with known history of hypertension for which she was not taking any antihypertensives for the past 3 years, also daily alcohol and tobacco use as well as marijuana use, was using daily nonsteroidal anti-inflammatory drugs for headaches, who presented for nausea, vomiting, diffuse pressure headaches, chest pain. Noted to have some elevated blood pressures of 300/160 mmHg. Her MRI of the brain showed extensive signal abnormality in the brainstem, basal ganglia bilaterally, particularly the thalamus, suspicious for edema. There is extensive white matter signal abnormality in the cerebral hemispheres bilaterally. Her overall presentation is consistent with posterior reversible encephalopathy syndrome, which is commonly caused by hypertensive emergency/ malignant hypertension. . She also has a left retinal detachment for which she out of the left eye, she is seeing halos. She also has acute kidney injury, likely from hypertension as well as daily nonsteroidal anti-inflammatory drug use. EEG showed bilateral cerebral dysfunction, no evidence of any epileptiform activity At this time, recommend: 1. Hydrate the patient with sodium chloride at 100 mL per hour given acute kidney disease. 2. Slowly drop her blood pressures 20% at a time to an average blood pressure of 120-130 mmHg, that is the target. 3. Aspirin 81 mg p.o. daily for stroke prevention. 4. Could consider mannitol if necessary due to the vasogenic edema from underlying hypertensive emergency. 5. optho followup to repair the left retinal detachment since she is seeing halos out of the left eye. 5. Follow up with nephrology in regards to her acute kidney injury and continue with current present medical management. We will hold off seizure meds for now since the patient is not having any seizure-like activity. 6. Workup for Malignant hypertension. The patient's with posterior reversible encephalopathy syndrome usually reverse in about anywhere from 3-6 months or even it takes up to a year for MRI changes to change. Continue with current present medical management. Thank you Herbert Anne MD Objective - Vital Signs/Intake and Output Vital Signs (last 24 hours): Temp Pulse Resp BP Pulse Ox 97.9 F 67 28 H 156/81 H 100 09/16/16 08:00 09/16/16 11:00 09/16/16 11:00 09/16/16 11:00 09/16/16 11:00 Intake and Output: 09/16/16 09/16/16 06:59 18:59 Intake Total 1350 Output Total 300 Balance 1050 - Medications Medications: Current Medications Amlodipine Besylate (Norvasc) 10 mg PO DAILY [facility] Last Admin: 09/16/16 10:30 Dose: Not Given Aspirin (Ecotrin) 81 mg PO DAILY [facility] Last Admin: 09/16/16 10:32 Dose: 81 mg Atorvastatin Calcium (Lipitor) 20 mg PO DIN [facility] Last Admin: 09/15/16 17:47 Dose: 20 mg Carvedilol (Coreg) 6.25 mg PO BID [facility] Last Admin: 09/16/16 10:29 Dose: Not Given Clonidine HCl (Catapres) 0.1 mg PO Q4H PRN PRN Reason: hypertension Last Admin: 09/16/16 07:20 Dose: 0.1 mg Docusate Sodium (Colace) 100 mg PO DAILY [facility] Last Admin: 09/16/16 10:32 Dose: 100 mg Famotidine (Pepcid) 20 mg PO DAILY [facility] Last Admin: 09/16/16 10:32 Dose: 20 mg Hydralazine HCl (Apresoline) 25 mg PO TID [facility] Last Admin: 09/16/16 10:29 Dose: Not Given Nicardipine HCl (Cardene Iv Premix) 200 mls @ 50 mls/hr IV .Q4H PRN; Protocol; 5 MG/HR PRN Reason: TITRATE PER MD ORDER Last Titration: 09/15/16 15:30 Dose: 0 mg/hr Sodium Chloride (Sodium Chloride 0.9%) 1,000 mls @ 100 mls/hr IV .Q10H [facility] Last Admin: 09/15/16 22:00 Dose: 100 mls/hr Ceftriaxone Sodium (Rocephin 1 Gram Ivpb) 100 mls @ 100 mls/hr IVPB DAILY [facility] PRN Reason: Protocol Last Admin: 09/16/16 10:38 Dose: 100 mls/hr Iron Sucrose 200 mg/ Sodium (Chloride) 110 mls @ 110 mls/hr IVPB DAILY [facility] Stop: 09/21/16 10:01 Last Admin: 09/16/16 10:40 Dose: 110 mls/hr Isosorbide Mononitrate (Imdur) 30 mg PO DAILY [facility] Last Admin: 09/16/16 10:29 Dose: Not Given Lorazepam (Ativan) 0.5 mg IVP Q4H PRN; Protocol PRN Reason: Anxiety Morphine Sulfate (Morphine) 2 mg IVP Q4H PRN PRN Reason: Pain, moderate (4-7) Last Admin: 09/14/16 18:29 Dose: 2 mg Polyethylene Glycol (Miralax) 17 gm PO DAILY PRN PRN Reason: Constipation Last Admin: 09/15/16 10:33 Dose: 17 gm - Labs Labs: 09/16/16 06:20 09/16/16 06:20 PT 10.7 Seconds (9.9-11.8) 09/13/16 10:30 INR 0.99 (0.93-1.08) 09/13/16 10:30 APTT 26.4 Seconds (23.7-30.8) 09/13/16 10:30
--- NOTE | 2016-09-16 13:04 | CP.PCM.PN ---
<RamseyLuciano - Last Filed: 09/16/16 13:11> Subjective - Date & Time of Evaluation Date of Evaluation: 09/16/16 Time of Evaluation: 08:00 - Subjective Subjective: PGY-1 Medicine Progress Note for Dr. Mitchell Patient seen and examined at bedside. No acute event overnight. Patient reported that L eye vision has improved and can see blurry images. Patient now on heart healthy diet. Patient has no other acute complaint today. Denied fever /chills, cp, sob, palpitations, n/v/d, incontinence, numbness/tingling. Patient will be transferred to telemetry floor today. Objective - Vital Signs/Intake and Output Vital Signs (last 24 hours): Temp Pulse Resp BP Pulse Ox 97.9 F 67 28 H 156/81 H 100 09/16/16 08:00 09/16/16 11:00 09/16/16 11:00 09/16/16 11:00 09/16/16 11:00 Intake and Output: 09/16/16 09/16/16 06:59 18:59 Intake Total 1350 Output Total 300 Balance 1050 - Medications Medications: Current Medications Amlodipine Besylate (Norvasc) 10 mg PO DAILY [facility] Last Admin: 09/16/16 10:30 Dose: Not Given Aspirin (Ecotrin) 81 mg PO DAILY [facility] Last Admin: 09/16/16 10:32 Dose: 81 mg Atorvastatin Calcium (Lipitor) 20 mg PO DIN [facility] Last Admin: 09/15/16 17:47 Dose: 20 mg Carvedilol (Coreg) 6.25 mg PO BID [facility] Last Admin: 09/16/16 10:29 Dose: Not Given Clonidine HCl (Catapres) 0.1 mg PO Q4H PRN PRN Reason: hypertension Last Admin: 09/16/16 07:20 Dose: 0.1 mg Docusate Sodium (Colace) 100 mg PO DAILY [facility] Last Admin: 09/16/16 10:32 Dose: 100 mg Famotidine (Pepcid) 20 mg PO DAILY [facility] Last Admin: 09/16/16 10:32 Dose: 20 mg Hydralazine HCl (Apresoline) 25 mg PO TID [facility] Last Admin: 09/16/16 10:29 Dose: Not Given Nicardipine HCl (Cardene Iv Premix) 200 mls @ 50 mls/hr IV .Q4H PRN; Protocol; 5 MG/HR PRN Reason: TITRATE PER MD ORDER Last Titration: 09/15/16 15:30 Dose: 0 mg/hr Sodium Chloride (Sodium Chloride 0.9%) 1,000 mls @ 100 mls/hr IV .Q10H [facility] Last Admin: 09/15/16 22:00 Dose: 100 mls/hr Ceftriaxone Sodium (Rocephin 1 Gram Ivpb) 100 mls @ 100 mls/hr IVPB DAILY [facility] PRN Reason: Protocol Last Admin: 09/16/16 10:38 Dose: 100 mls/hr Iron Sucrose 200 mg/ Sodium (Chloride) 110 mls @ 110 mls/hr IVPB DAILY [facility] Stop: 09/21/16 10:01 Last Admin: 09/16/16 10:40 Dose: 110 mls/hr Isosorbide Mononitrate (Imdur) 30 mg PO DAILY [facility] Last Admin: 09/16/16 10:29 Dose: Not Given Lorazepam (Ativan) 0.5 mg IVP Q4H PRN; Protocol PRN Reason: Anxiety Morphine Sulfate (Morphine) 2 mg IVP Q4H PRN PRN Reason: Pain, moderate (4-7) Last Admin: 09/14/16 18:29 Dose: 2 mg Polyethylene Glycol (Miralax) 17 gm PO DAILY PRN PRN Reason: Constipation Last Admin: 09/15/16 10:33 Dose: 17 gm - Labs Labs: 09/16/16 06:20 09/16/16 06:20 PT 10.7 Seconds (9.9-11.8) 09/13/16 10:30 INR 0.99 (0.93-1.08) 09/13/16 10:30 APTT 26.4 Seconds (23.7-30.8) 09/13/16 10:30 - Constitutional Appears: No Acute Distress - Head Exam Head Exam: NORMOCEPHALIC - Eye Exam Eye Exam: EOMI, Normal appearance Additional comments: L eye vision has improved, can now see blurry images - ENT Exam ENT Exam: Mucous Membranes Moist - Neck Exam Neck Exam: Full ROM, Normal Inspection - Respiratory Exam Respiratory Exam: Clear to Ausculation Bilateral, NORMAL BREATHING PATTERN - Cardiovascular Exam Cardiovascular Exam: REGULAR RHYTHM, +S1, +S2 - GI/Abdominal Exam GI & Abdominal Exam: Soft, Normal Bowel Sounds. absent: Distended, Firm, Guarding, Rigid, Tenderness, Rebound - Extremities Exam Extremities Exam: Normal Capillary Refill. absent: Pedal Edema - Back Exam Back Exam: absent: CVA tenderness (L), CVA tenderness (R) - Neurological Exam Neurological Exam: Alert, Awake, CN II-XII Intact, Oriented x3 - Psychiatric Exam Psychiatric exam: Normal Affect, Normal Mood - Skin Skin Exam: Dry, Intact, Normal Color, Warm Assessment and Plan - Assessment and Plan (Free Text) Plan: 51 F with PMH of HTN, sickle cell trait, Glaucoma admitted for hypertensive emergency and diagnosed with PRES syndrome 1. Hypertensive Emergency ECHO: LV normal size, mild concentric LVH, mild-mod impaired systolic function EF35-40, mild-mod hypokinesis apical anterior wall, mild mitral regurg, trace aortic regurg, mild tricuspid regurg Renal US: Medical renal disease, 1.6 cm simple cyst on upper pole of r kidney ( see full report). MRI Brain: extensice signal abnormality in brainstem and basal ganglia bilaterally, particularly thalami, suspicious for edema. Extensive white matter signal abnormality in cerebral hemispheresbilaterally. Uncertain etiology, could be hypertensive/infectious/inflammatory encephalopathy extensivve demyelinating disease, toxic insult, or underlying metabolic abnormality (see full report). CT head: extensive hypodensity in the perventricular white matter, sheyla, and cerebellar white matter. Could represent vasogenic edema related to HTN or chronic microvascular disease (see full report). CT chest: mild cardiomegaly, very mild emphysematous changes in lung apices bilaterally (see full report). CT abd/pelvos: Right ovarian cyst (see full report). Carotid duplex: bilateral 20-39% stenoses of proximal ICA, antegrade flow in both vertebral arteries (see full report). ASA 81 mg PO daily Norvasc 10 mg PO daily Coreg 6.25 PO BID Hydralazine 25 mg PO TID Clonidine 0.1 mg PO Q4H PRN Isosorbide Mononitrate 30 mg PO daily Nicardipine drip Nephro consult, Dr. Mcgarry, help appreciated Opthlamology consult, Dr. Bae, help appreciated Cardio consult, Dr. Carson, help appreciated Cardiac enzymes 0.20-->0.28-->1.98-->1.43-->2.43-->2.24 f/u daily labs Heart healthy diet 2. Chest Pain ECHO: LV normal size, mild concentric LVH, mild-mod impaired systolic function EF35-40, mild-mod hypokinesis apical anterior wall, mild mitral regurg, trace aortic regurg, mild tricuspid regurg Carotid duplex: bilateral 20-39% stenoses of proximal ICA, antegrade flow in both vertebral arteries (see full report). ASA 81 mg PO daily Norvasc 10 mg PO daily Coreg 6.25 PO BID Hydralazine 25 mg PO TID Clonidine 0.1 mg PO Q4H PRN Isosorbide Mononitrate 30 mg PO daily Nicardipine drip Lipitor 20 mg PO HS Nephro consult, Dr. Mcgarry, help appreciated Opthlamology consult, Dr. Bae, help appreciated Cardio consult, Dr. Carson, help appreciated Cardiac enzymes 0.20-->0.28-->1.98-->1.43 f/u daily labs BNP 41709 3. ESTEFANI Bun/Cr: 76/4.5 NS 100 cc/hr Renal US: Medical renal disease, 1.6 cm simple cyst on upper pole of r kidney ( see full report). Rocephin 1 gm IVPB daily 4. Dyspnea ECHO: LV normal size, mild concentric LVH, mild-mod impaired systolic function EF35-40, mild-mod hypokinesis apical anterior wall, mild mitral regurg, trace aortic regurg, mild tricuspid regurg Carotid duplex: bilateral 20-39% stenoses of proximal ICA, antegrade flow in both vertebral arteries (see full report). ASA 81 mg PO daily Norvasc 5 mg PO daily Nicardipine drip Nephro consult, Dr. Mcgarry, help appreciated Opthlamology consult, Dr. Bae, help appreciated Cardio consult, Dr. Carson, help appreciated Cardiac enzymes 0.20-->0.28-->1.98-->1.43 f/u daily labs BNP 69745 5. Hypokalemia Resolved K+ 3.9 Monitor 6. Anemia Iron sucrose 200 mg IVPB daily 7. Glaucoma Tropicamide 1% 1 drop OU 8. Prophylactic measures Pepcid 20 mg PO daily Colace 100 mg PO daily Miralax 17 gm PO daily PRN <Mitchell,Irfana B - Last Filed: 09/18/16 12:27> Objective - Vital Signs/Intake and Output Vital Signs (last 24 hours): Temp Pulse Resp BP Pulse Ox 98.4 F 65 19 193/110 H 100 09/17/16 07:33 09/17/16 14:11 09/17/16 11:21 09/17/16 14:11 09/17/16 11:21 Intake and Output: 09/17/16 09/17/16 06:59 18:59 Intake Total 100 440 Output Total 500 200 Balance -400 240 - Medications Medications: Current Medications Amlodipine Besylate (Norvasc) 10 mg PO DAILY [facility] Last Admin: 09/17/16 09:01 Dose: 10 mg Aspirin (Ecotrin) 81 mg PO DAILY [facility] Last Admin: 09/17/16 09:01 Dose: 81 mg Atorvastatin Calcium (Lipitor) 20 mg PO DIN [facility] Last Admin: 09/16/16 17:47 Dose: 20 mg Carvedilol (Coreg) 12.5 mg PO BID [facility] Clonidine HCl (Catapres) 0.2 mg PO TID [facility] Last Admin: 09/17/16 14:11 Dose: 0.2 mg Docusate Sodium (Colace) 100 mg PO DAILY [facility] Last Admin: 09/17/16 09:01 Dose: 100 mg Famotidine (Pepcid) 20 mg PO DAILY [facility] Last Admin: 09/17/16 09:02 Dose: 20 mg Hydralazine HCl (Apresoline) 50 mg PO TID [facility] Last Admin: 09/17/16 14:11 Dose: 50 mg Ceftriaxone Sodium (Rocephin 1 Gram Ivpb) 100 mls @ 100 mls/hr IVPB DAILY [facility] PRN Reason: Protocol Last Admin: 09/17/16 09:02 Dose: 100 mls/hr Iron Sucrose 200 mg/ Sodium (Chloride) 110 mls @ 110 mls/hr IVPB DAILY [facility] Stop: 09/21/16 10:01 Last Admin: 09/17/16 10:14 Dose: 110 mls/hr Metronidazole (Flagyl) 50 mls @ 100 mls/hr IVPB Q8 [facility] PRN Reason: Protocol Stop: 09/22/16 14:04 Last Admin: 09/17/16 14:50 Dose: 100 mls/hr Isosorbide Mononitrate (Imdur) 30 mg PO DAILY [facility] Last Admin: 09/17/16 09:01 Dose: 30 mg Lorazepam (Ativan) 0.5 mg IVP Q4H PRN; Protocol PRN Reason: Anxiety Last Admin: 09/16/16 22:17 Dose: 0.5 mg Metoprolol Tartrate (Lopressor) 5 mg IVP Q6H PRN PRN Reason: Systolic Blood Pressure Morphine Sulfate (Morphine) 2 mg IVP Q4H PRN PRN Reason: Pain, moderate (4-7) Last Admin: 09/14/16 18:29 Dose: 2 mg Multi-Ingredient Cream (Hydrocerin Cream) 1 ea TOP BID PRN PRN Reason: Dry nasal passages Polyethylene Glycol (Miralax) 17 gm PO DAILY PRN PRN Reason: Constipation Last Admin: 09/15/16 10:33 Dose: 17 gm Sodium Chloride ([place] Nasal Rufus) 0 ml NS BID PRN PRN Reason: Nasal congestion - Labs Labs: 09/17/16 07:45 09/17/16 06:50 PT 10.7 Seconds (9.9-11.8) 09/13/16 10:30 INR 0.99 (0.93-1.08) 09/13/16 10:30 APTT 26.4 Seconds (23.7-30.8) 09/13/16 10:30 Attending/Attestation - Attestation I have personally seen and examined this patient.: Yes I have fully participated in the care of the patient.: Yes I have reviewed all pertinent clinical information, including history, physical exam and plan: Yes Notes (Text): I have seen and examined the patient with the resident. Agree with the above note with the following additions/ exceptions: Briefly this is 51 year old female with history of HTN, non compliant with medications, sickle cell trait, glaucoma, marijuana use, former alcohol abuser, OTC motrin use for headache on regular basis who presented with hypertensive emergency (headache, blurry vision of left eye, chest pain, CARY, vomiting) and found to have dehydration, hyponatremia, hypokalemia, elevated troponin and acute kidney injury. Abd pelvis CT ruled out aortic dissection. Tolerating diet. Reports that he vision has improved slightly and she is visualizing shadows from left eye. As per sheriff sergeant, patient has retinal detachment. BP has improved. Nicardipine drip was stopped. Norvasc, coreg, hydralazine, clonidine and imdur was added.. Patient has leukocytosis. UA revealed large LE on rocephin. Echo showed EF of 35 -40%. Renal ultrasound showed medical renal disease. MRI brain showed vasogenic edema most likely PRES syndrome. Troponins are elevated most likely due to hypertensive emergency and renal impairment. No plan for cardiac cath so far. Work up for secondary causes of HTN pending. Blood cultures are pending as well. For anemia, she is on venofer. Dr Patsy Mitchell
[2016-09-16 13:47] LABS: METANEPHRINES 181 pg/mL (<=57); TOTAL METANEPHRINES 795 pg/mL (<=205)
--- NOTE | 2016-09-16 14:07 | PN ---
DATE: 09/16/2016 The patient's blood pressure is still elevated. She denies any headache or dizziness. No chest pain or shortness of breath. PHYSICAL EXAMINATION: VITAL SIGNS: Blood pressure is 170/100, heart rate 70, respiration 18, temperature 98.1. HEENT: Pale conjunctivae. CHEST: Clear. HEART: S1, S2 regular. EXTREMITIES: No edema. LABORATORIES: Hemoglobin and hematocrit are 8.1 and 22.6, white count 14.8, platelet count 168,000. SMA-7: Sodium 129, potassium 3.9, chloride 97, CO2 of 20, glucose 99, BUN 76, creatinine 4.5. ASSESSMENT: 1. Hypertensive encephalopathy. 2. Uncontrolled hypertension. 3. Advanced renal insufficiency. 4. Elevated troponin. 5. Anemia. The patient is currently receiving packed red blood cell transfusion. RECOMMENDATIONS: Continue Coreg 6.25 mg twice a day. Increase clonidine to 0.2 mg q. 8 hours and hy dralazine to 50 mg t.i.d. Continue Norvasc 10 mg once a day. Misael Carson MD cc: [id number] TT: 09/16/2016 14:07:10 Confirmation # [id number] Dictation # [id number] mn
--- NOTE | 2016-09-16 16:32 | PN ---
DATE: 09/16/2016 SUBJECTIVE: The patient was seen in the intensive care unit. She has now been weaned off nicardipine infusion. She feels better overall and her spirits certainly appear to be improved. She has had a decrease in her headache, but denies any nausea or vomiting. There is no abdominal pain or palpitations. Her vision still remains blurry. OBJECTIVE: VITAL SIGNS: As follows: Blood pressure is now 170/81 but has ranged from approximately 124/63 in the last 24-hour period to as high as 185/116. Heart rate has been in the 70s with monitoring showing sinus rhythm in the last 24- hour period. Oral temperature is 98.1 degrees and the patient has been afebrile in the last 24-hour period. Respiratory rate is 19 breaths per minute , but has ranged from 17-34 breaths per minute in the last 24-hour period. Oxygen saturation is 89%, but has ranged from 89% to 100% in the last 24-hour period on room air. I's and O's are documented as 2900/850. The remainder of the exam was as follows: HEENT: The patient was normocephalic and atraumatic without any sinus tenderness. NECK: Supple with a full range of motion. Trachea midline and freely movable. Thyroid was not tender nor enlarged. There was no jugular venous distention. EYES: Conjunctivae were pale, but they were anicteric. CHEST: Lungs francois were auscultated anteriorly and were clear to auscultation on my exam without any rales, rhonchi or wheezing. CARDIAC: Had a regular rate and rhythm without any rubs or gallops. ABDOMEN: Soft, mildly distended, but nontender, without any rebounding, guarding or rigidity. There was no hepatosplenomegaly. There were no masses, pulsatile or otherwise. EXTREMITIES: Had trace edema. NEUROLOGIC: The patient was complaining of blurry vision, but was otherwise nonfocal. She also had a mild headache. VASCULAR: Had no bruits. SKIN: Intact. LABORATORY STUDIES: White count is 14.8, H and H is 8.1/22.6 with a platelet count of 168,000. There are 85% neutrophils, 6% lymphocytes, 9% monocytes. Sodium is 128, potassium is 3.9, chloride is 97, bicarbonate 20, BUN/creatinine is 76/4.5 with a glucose of 99. Calcium is 8.7 but corrects to approximately 9.3 since the albumin is 3.2. Phosphorus is elevated at 5.9. Most recent troponin was 2.24. Urine cultures have gram-negative rods. Blood cultures have gram-positive cocci. IMPRESSION AND PLAN: The patient is a 51-year-old obese female (body mass index 31.3 kg/m2) with chronic hypertension, but noncompliant with antihypertensive therapy for the last 3 years with a blood pressure that she states has been as high as 300 mmHg when she has visited her primary care physician as an outpatient; daily tobacco, alcohol and marijuana use; daily use of nonsteroidal anti-inflammatory dugs for headaches, who was originally admitted with hypertensive emergency as manifested by nausea, vomiting, headaches, chest pain, and acute coronary syndrome in the setting of a blood pressure of 300/160. MRI was consistent with posterior reversible encephalopathy syndrome and the patient also has had acute kidney injury during this hospitalization, perhaps secondary to malignant hypertension. 1. The patient's creatinine had been stable for the last 2 days at 4.2. It is increased today to 4.5 and I suspect that this represents an attempt by the kidneys to autoregulate renal blood flow in response to the decrease in blood pressure in this chronically hypertensive patient. 2. That being said, the patient clearly requires ongoing blood pressure reduction to ultimately a goal of approximately 130/80 or less. Neurology followup is appreciated and the posterior reversible encephalopathy syndrome may take 3-6 months to resolve clinically or 1 year to resolve radiographically. 3. Workup for secondary causes of hypertension have been sent and the results are still pending. The patient was hypokalemic on admission, which suggested the possibility of hyperaldosteronism, although it is also true that she was vomiting and the hypokalemia could have been from that. 4. Cardene has been decreased, but for now we will need to continue to escalate the patient's antihypertensive therapy. She is currently receiving hydralazine 50 mg orally 3 times a day, amlodipine 10 mg orally daily, carvedilol 6.25 mg orally twice daily, hydralazine 50 mg orally 3 times a day and isosorbide mononitrate 30 mg daily. She has also been started on clonidine 0.2 mg orally 3 times a day. I would suggest starting her on spironolactone since aldosterone and rennin levels have already been sent to the lab, at a dose of 12.5 mg orally twice daily with close monitoring since she is hospitalized anyways. With respect to any possible increases in her potassium, spironolactone is a very effective agent for resistant hypertension. 5. Given the fact that the patient is and appears to have underlying chronic kidney disease, she will require a diuretic to be part of her antihypertensive therapy upon discharge. Spironolactone may work not just via its function as a diuretic but since it also has some efficacy in patients who have end-stage renal disease. If another diuretic is chosen, it would need to be a loop diuretic given the fact that her GFR is less than 30 and therefore she would not respond to a thiazide-type diuretic. 6. For her elevated troponin that was consistent with an acute coronary syndrome, continue aspirin, atorvastatin, and carvedilol. 7. For gastrointestinal prophylaxis, continue famotidine at this time. 8. Laboratory studies suggested iron deficiency anemia and patient has been started on Venofer 200 mg intravenously daily for 5 doses. Once her blood pressure is under good control, we will also start her on Aranesp. 9. Imaging did not reveal any evidence of renal artery stenosis, but did show echogenic kidneys and thus, the patient does appear to have underlying chronic kidney disease as well. 10. Advance the patient's diet as tolerated. 11. From my perspective, patient is cleared to be transferred to telemetry today. The above was discussed at length with the patient as well as her family members present at bedside. Review of systems, past medical history, social history and family history were all reviewed and there were no new changes and more than 35 minutes were spent in the care of this ICU patient today. We await the results of labs from her workup for secondary causes of hypertension. Israel Mcgarry MD, PEPE cc: [id number] TT: 09/16/2016 16:31:14 Confirmation # [id number] Dictation # [id number] LANE
--- NOTE | 2016-09-16 18:25 | CARD ---
APPROVED REPORT EKG Measurement Heart [id number] <Conclusion> Normal sinus rhythm Voltage criteria for left ventricular hypertrophy ST & T wave abnormality, consider inferolateral ischemia Abnormal ECG
[2016-09-17 06:25] LABS: MAGNESIUM 2.2 mg/dL (1.7-2.2); PHOSPHOROUS 5.6 mg/dL (2.5-4.5)
[2016-09-17 07:52] LABS: BILIRUBIN,TOTAL 0.6 mg/dL (0.2-1.3); CALCIUM 8.5 mg/dL (8.4-10.5); POTASSIUM 4.1 mmol/L (3.6-5.0); TOTAL PROTEIN 6.2 g/dL (5.8-8.3)
[2016-09-17 07:56] LABS: ADD MANUAL DIFF? NO
[2016-09-17 07:58] LABS: BASO # 0.01 K/mm3 (0.0-2.0); BASO % 0.1 % (0.0-3.0); EOS % 0.3 % (1.5-5.0); GRAN # 10.52 (1.4-6.5); GRAN % 84.5 % (50.0-68.0); LYMPH # 0.7 (1.2-3.4); LYMPH % 5.9 % (22.0-35.0); MEAN CELL VOLUME 83.8 fL (80.0-105.0); MEAN CORPUSCULAR HEMOGLOBIN 30.1 pg (25.0-35.0); MONO # 1.2 (0.1-0.6); MONO % 9.2 % (1.0-6.0); PLATELET COUNT 185 10^3/uL (120.0-450.0); RED CELL DISTRIBUTION WIDTH 18.5 % (11.5-14.5); WHITE BLOOD COUNT 12.5 10^3/ul (4.5-11.0)
[2016-09-17 08:48] LABS: HEMATOCRIT 22.8 % (36.0-48.0)
--- NOTE | 2016-09-17 08:57 | CP.PCM.PN ---
Addendum entered and electronically signed by Luciano Mustafa DO 09/17/16 14:37 : Patient was transferred to the floor around 1200. Patient was complaining of abd pain at that time. Her BP was 200/126. Lopressor 5 mg was given and CT abd/ pelvis without contrast was ordered. CT abd/pelvis was suggestive of cholecystitis with gallbladder wall thickening, colon full of stool, and Right ovarian cyst 3.5 x 5 cm. Patient has not had BM since admission. General surgery and POLICE SHIFT COMMANDER was consulted. Original Note: <Luciano Mustafa - Last Filed: 09/17/16 11:25> Subjective - Date & Time of Evaluation Date of Evaluation: 09/17/16 Time of Evaluation: 08:00 - Subjective Subjective: PGY-1 Medicine Progress Note for Dr. Mitchell Patient seen and examined at bedside. No acute event overnight. Patient resting in bed comfortably. Patient continues to report that L eye vision is improving. Patient tolerating diet. Patient had an episode of epitaxis this morning. No BM yet, must have BM before going to telemetry floor. Denied fever/chills, cp, sob, palpitations, n/v/d, incontinence, numbness/tingling. Objective - Vital Signs/Intake and Output Vital Signs (last 24 hours): Temp Pulse Resp BP Pulse Ox 98.4 F 71 20 168/101 H 99 09/17/16 07:33 09/17/16 07:33 09/17/16 07:33 09/17/16 06:00 09/17/16 07:33 Intake and Output: 09/17/16 09/17/16 06:59 18:59 Intake Total 100 Output Total 500 Balance -400 - Medications Medications: Current Medications Amlodipine Besylate (Norvasc) 10 mg PO DAILY [facility] Last Admin: 09/16/16 10:30 Dose: Not Given Aspirin (Ecotrin) 81 mg PO DAILY [facility] Last Admin: 09/16/16 10:32 Dose: 81 mg Atorvastatin Calcium (Lipitor) 20 mg PO DIN [facility] Last Admin: 09/16/16 17:47 Dose: 20 mg Carvedilol (Coreg) 6.25 mg PO BID [facility] Last Admin: 09/16/16 17:47 Dose: 6.25 mg Clonidine HCl (Catapres) 0.2 mg PO TID [facility] Last Admin: 09/16/16 17:45 Dose: 0.2 mg Docusate Sodium (Colace) 100 mg PO DAILY [facility] Last Admin: 09/16/16 10:32 Dose: 100 mg Famotidine (Pepcid) 20 mg PO DAILY [facility] Last Admin: 09/16/16 10:32 Dose: 20 mg Hydralazine HCl (Apresoline) 50 mg PO TID [facility] Last Admin: 09/16/16 17:47 Dose: 50 mg Ceftriaxone Sodium (Rocephin 1 Gram Ivpb) 100 mls @ 100 mls/hr IVPB DAILY [facility] PRN Reason: Protocol Last Admin: 09/16/16 10:38 Dose: 100 mls/hr Iron Sucrose 200 mg/ Sodium (Chloride) 110 mls @ 110 mls/hr IVPB DAILY [facility] Stop: 09/21/16 10:01 Last Admin: 09/16/16 10:40 Dose: 110 mls/hr Isosorbide Mononitrate (Imdur) 30 mg PO DAILY [facility] Last Admin: 09/16/16 10:29 Dose: Not Given Lorazepam (Ativan) 0.5 mg IVP Q4H PRN; Protocol PRN Reason: Anxiety Last Admin: 09/16/16 22:17 Dose: 0.5 mg Morphine Sulfate (Morphine) 2 mg IVP Q4H PRN PRN Reason: Pain, moderate (4-7) Last Admin: 09/14/16 18:29 Dose: 2 mg Polyethylene Glycol (Miralax) 17 gm PO DAILY PRN PRN Reason: Constipation Last Admin: 09/15/16 10:33 Dose: 17 gm - Labs Labs: 09/17/16 07:45 09/17/16 06:50 PT 10.7 Seconds (9.9-11.8) 09/13/16 10:30 INR 0.99 (0.93-1.08) 09/13/16 10:30 APTT 26.4 Seconds (23.7-30.8) 09/13/16 10:30 - Constitutional Appears: No Acute Distress - Head Exam Head Exam: ATRAUMATIC, NORMOCEPHALIC - Eye Exam Eye Exam: EOMI, Normal appearance Additional comments: L eye vision slightly improved - ENT Exam ENT Exam: Mucous Membranes Moist - Neck Exam Neck Exam: Full ROM, Normal Inspection. absent: Lymphadenopathy - Respiratory Exam Respiratory Exam: Clear to Ausculation Bilateral, NORMAL BREATHING PATTERN - Cardiovascular Exam Cardiovascular Exam: RRR, +S1, +S2 - GI/Abdominal Exam GI & Abdominal Exam: Soft, Normal Bowel Sounds. absent: Tenderness - Extremities Exam Extremities Exam: Normal Capillary Refill. absent: Calf Tenderness, Pedal Edema , Tenderness - Back Exam Back Exam: absent: CVA tenderness (L), CVA tenderness (R) - Neurological Exam Neurological Exam: Alert, Awake, CN II-XII Intact, Oriented x3 - Psychiatric Exam Psychiatric exam: Normal Affect, Normal Mood - Skin Skin Exam: Dry, Intact, Normal Color, Warm Assessment and Plan - Assessment and Plan (Free Text) Plan: 51 F with PMH of HTN, sickle cell trait, Glaucoma admitted for hypertensive emergency and diagnosed with PRES syndrome 1. Hypertensive Emergency ECHO: LV normal size, mild concentric LVH, mild-mod impaired systolic function EF35-40, mild-mod hypokinesis apical anterior wall, mild mitral regurg, trace aortic regurg, mild tricuspid regurg Renal US: Medical renal disease, 1.6 cm simple cyst on upper pole of r kidney ( see full report). MRI Brain: extensice signal abnormality in brainstem and basal ganglia bilaterally, particularly thalami, suspicious for edema. Extensive white matter signal abnormality in cerebral hemispheresbilaterally. Uncertain etiology, could be hypertensive/infectious/inflammatory encephalopathy extensivve demyelinating disease, toxic insult, or underlying metabolic abnormality (see full report). CT head: extensive hypodensity in the perventricular white matter, sheyla, and cerebellar white matter. Could represent vasogenic edema related to HTN or chronic microvascular disease (see full report). CT chest: mild cardiomegaly, very mild emphysematous changes in lung apices bilaterally (see full report). CT abd/pelvos: Right ovarian cyst (see full report). Carotid duplex: bilateral 20-39% stenoses of proximal ICA, antegrade flow in both vertebral arteries (see full report). ASA 81 mg PO daily Norvasc 10 mg PO daily Coreg 6.25 PO BID Hydralazine 25 mg PO TID Clonidine 0.1 mg PO Q4H PRN Isosorbide Mononitrate 30 mg PO daily Nicardipine drip Nephro consult, Dr. Mcgarry, help appreciated Opthlamology consult, Dr. Bae, help appreciated Cardio consult, Dr. Carson, help appreciated Cardiac enzymes 0.20-->0.28-->1.98-->1.43-->2.43-->2.24 f/u daily labs Heart healthy diet 2. Chest Pain ECHO: LV normal size, mild concentric LVH, mild-mod impaired systolic function EF35-40, mild-mod hypokinesis apical anterior wall, mild mitral regurg, trace aortic regurg, mild tricuspid regurg Carotid duplex: bilateral 20-39% stenoses of proximal ICA, antegrade flow in both vertebral arteries (see full report). ASA 81 mg PO daily Norvasc 10 mg PO daily Coreg 6.25 PO BID Hydralazine 25 mg PO TID Clonidine 0.1 mg PO Q4H PRN Isosorbide Mononitrate 30 mg PO daily Nicardipine drip Lipitor 20 mg PO HS Nephro consult, Dr. Mcgarry, help appreciated Opthlamology consult, Dr. Bae, help appreciated Cardio consult, Dr. Carson, help appreciated Cardiac enzymes 0.20-->0.28-->1.98-->1.43-->2.43-->2.24 f/u daily labs BNP 13603 3. ESTEFANI Bun/Cr: 90/4.4 NS 100 cc/hr Renal US: Medical renal disease, 1.6 cm simple cyst on upper pole of r kidney ( see full report). Rocephin 1 gm IVPB daily 4. Dyspnea ECHO: LV normal size, mild concentric LVH, mild-mod impaired systolic function EF35-40, mild-mod hypokinesis apical anterior wall, mild mitral regurg, trace aortic regurg, mild tricuspid regurg Carotid duplex: bilateral 20-39% stenoses of proximal ICA, antegrade flow in both vertebral arteries (see full report). ASA 81 mg PO daily Norvasc 5 mg PO daily Nicardipine drip Nephro consult, Dr. Mcgarry, help appreciated Opthlamology consult, Dr. Bae, help appreciated Cardio consult, Dr. Carson, help appreciated Cardiac enzymes 0.20-->0.28-->1.98-->1.43-->2.43-->2.24 f/u daily labs BNP 78856 5. Hypokalemia Resolved K+ 4.1 Monitor 6. Anemia Iron sucrose 200 mg IVPB daily 7. Glaucoma Tropicamide 1% 1 drop OU 8. Epitaxis Hydrocerin cream PRN Amonate nasal spray PRN 9. Prophylactic measures Pepcid 20 mg PO daily Colace 100 mg PO daily Miralax 17 gm PO daily PRN <Patsy Mitchell B - Last Filed: 09/18/16 12:41> Objective - Vital Signs/Intake and Output Vital Signs (last 24 hours): Temp Pulse Resp BP Pulse Ox 98.2 F 68 20 200/118 H 100 09/18/16 00:01 09/18/16 10:00 09/18/16 00:01 09/18/16 09:05 09/18/16 00:01 Intake and Output: 09/18/16 09/18/16 06:59 18:59 Intake Total 1300 Output Total 0 Balance 1300 - Medications Medications: Current Medications Amlodipine Besylate (Norvasc) 10 mg PO DAILY [facility] Last Admin: 09/18/16 09:05 Dose: 10 mg Aspirin (Ecotrin) 81 mg PO DAILY [facility] Last Admin: 09/18/16 09:05 Dose: 81 mg Atorvastatin Calcium (Lipitor) 20 mg PO DIN [facility] Last Admin: 09/17/16 17:08 Dose: 20 mg Carvedilol (Coreg) 12.5 mg PO BID [facility] Last Admin: 09/18/16 09:05 Dose: 12.5 mg Clonidine HCl (Catapres) 0.3 mg PO TID [facility] Last Admin: 09/18/16 09:04 Dose: 0.3 mg Docusate Sodium (Colace) 100 mg PO DAILY [facility] Last Admin: 09/18/16 09:05 Dose: 100 mg Famotidine (Pepcid) 20 mg PO DAILY [facility] Last Admin: 09/18/16 09:06 Dose: 20 mg Hydralazine HCl (Apresoline) 50 mg PO TID [facility] Last Admin: 09/18/16 09:04 Dose: 50 mg Ceftriaxone Sodium (Rocephin 1 Gram Ivpb) 100 mls @ 100 mls/hr IVPB DAILY [facility] PRN Reason: Protocol Last Admin: 09/18/16 09:07 Dose: 100 mls/hr Iron Sucrose 200 mg/ Sodium (Chloride) 110 mls @ 110 mls/hr IVPB DAILY [facility] Stop: 09/21/16 10:01 Last Admin: 09/18/16 09:06 Dose: 110 mls/hr Metronidazole (Flagyl) 50 mls @ 100 mls/hr IVPB Q8 [facility] PRN Reason: Protocol Stop: 09/22/16 14:04 Last Admin: 09/18/16 06:23 Dose: 100 mls/hr Isosorbide Mononitrate (Imdur) 30 mg PO DAILY [facility] Last Admin: 09/18/16 09:03 Dose: 30 mg Lorazepam (Ativan) 0.5 mg IVP Q4H PRN; Protocol PRN Reason: Anxiety Last Admin: 09/16/16 22:17 Dose: 0.5 mg Metoprolol Tartrate (Lopressor) 5 mg IVP Q6H PRN PRN Reason: Systolic Blood Pressure Last Admin: 09/18/16 07:18 Dose: 5 mg Morphine Sulfate (Morphine) 2 mg IVP Q4H PRN PRN Reason: Pain, moderate (4-7) Last Admin: 09/14/16 18:29 Dose: 2 mg Multi-Ingredient Cream (Hydrocerin Cream) 1 ea TOP BID PRN PRN Reason: Dry nasal passages Polyethylene Glycol (Miralax) 17 gm PO DAILY PRN PRN Reason: Constipation Last Admin: 09/15/16 10:33 Dose: 17 gm Sodium Chloride (Amonate Nasal [place]) 0 ml NS BID PRN PRN Reason: Nasal congestion - Labs Labs: 09/18/16 06:45 09/18/16 06:45 PT 10.7 Seconds (9.9-11.8) 09/13/16 10:30 INR 0.99 (0.93-1.08) 09/13/16 10:30 APTT 26.4 Seconds (23.7-30.8) 09/13/16 10:30 Attending/Attestation - Attestation I have personally seen and examined this patient.: Yes I have fully participated in the care of the patient.: Yes I have reviewed all pertinent clinical information, including history, physical exam and plan: Yes Notes (Text): I have seen and examined the patient with the resident. Agree with the above note with the following additions/ exceptions: Briefly this is 51 year old female with history of HTN, non compliant with medications at home, sickle cell trait, glaucoma, marijuana use, former alcohol abuser, OTC motrin use for headache on regular basis who presented with hypertensive emergency and found to have dehydration, hyponatremia, hypokalemia, elevated troponin, CHF due to systolic dysfunction (EF 35-40%), acute kidney injury, sepsis secondary to UTI and PRES syndrome. Today she had epistaxis this morning which resolved on its own. Amonate nasal spray and Vaseline for nostrils ordered. Later during the day after patient got transferred to [facility], patient starting complaining of severe abdominal pain, sharp, 10/10, which was radiating to her back along with nausea and 2 episodes of vomiting. Later she informed us that this pain has been on and off for the past 1 month. She was made npo and CT scan was ordered which showed cholecystitis and ovarian cyst. Pelvic ultrasound ordered for further evaluation of ovarian cyst. Surgery consult was called and patient was given rocephin and flagyl. LFT's are also elevated. Will check hep panel. For HTN, she was given lopressor IV prn and advised to the nurse that we will start clonidine patch if needed. Patients symptoms improved later in the day. EKG was repeated which was unchanged. Blood culture one bottle was positive for coag negative staph which is most likely due to contamination however dapto x 1 was given. She is getting rocephin for E Coli UTI. Hypokalemia has resolved however hyponatremia persists. Lien Searcher, ID, cardio, neuro and optho on board. Upon discharge patient will follow up with Dr Evita Swann. Dr Patsy Mitchell.
[2016-09-17] MEDS: cefTRIAXone 1 gm 100 ML IVPB SCH (09:02)
--- NOTE | 2016-09-17 09:18 | CP.PCM.PN ---
Subjective - Date & Time of Evaluation Date of Evaluation: 09/17/16 Time of Evaluation: 08:30 - Subjective Subjective: Comfortable in bed, not in distress, no fevers overnight, no SOB, no cough, no diarrhea. Objective - Vital Signs/Intake and Output Vital Signs (last 24 hours): Temp Pulse Resp BP Pulse Ox 98.4 F 71 20 168/101 H 99 09/17/16 07:33 09/17/16 07:33 09/17/16 07:33 09/17/16 06:00 09/17/16 07:33 Intake and Output: 09/17/16 09/17/16 06:59 18:59 Intake Total 100 Output Total 500 Balance -400 - Medications Medications: Current Medications Amlodipine Besylate (Norvasc) 10 mg PO DAILY [facility] Last Admin: 09/16/16 10:30 Dose: Not Given Aspirin (Ecotrin) 81 mg PO DAILY [facility] Last Admin: 09/16/16 10:32 Dose: 81 mg Atorvastatin Calcium (Lipitor) 20 mg PO DIN [facility] Last Admin: 09/16/16 17:47 Dose: 20 mg Carvedilol (Coreg) 6.25 mg PO BID [facility] Last Admin: 09/16/16 17:47 Dose: 6.25 mg Clonidine HCl (Catapres) 0.2 mg PO TID [facility] Last Admin: 09/16/16 17:45 Dose: 0.2 mg Docusate Sodium (Colace) 100 mg PO DAILY [facility] Last Admin: 09/16/16 10:32 Dose: 100 mg Famotidine (Pepcid) 20 mg PO DAILY [facility] Last Admin: 09/16/16 10:32 Dose: 20 mg Hydralazine HCl (Apresoline) 50 mg PO TID [facility] Last Admin: 09/16/16 17:47 Dose: 50 mg Ceftriaxone Sodium (Rocephin 1 Gram Ivpb) 100 mls @ 100 mls/hr IVPB DAILY [facility] PRN Reason: Protocol Last Admin: 09/16/16 10:38 Dose: 100 mls/hr Iron Sucrose 200 mg/ Sodium (Chloride) 110 mls @ 110 mls/hr IVPB DAILY [facility] Stop: 09/21/16 10:01 Last Admin: 09/16/16 10:40 Dose: 110 mls/hr Isosorbide Mononitrate (Imdur) 30 mg PO DAILY [facility] Last Admin: 09/16/16 10:29 Dose: Not Given Lorazepam (Ativan) 0.5 mg IVP Q4H PRN; Protocol PRN Reason: Anxiety Last Admin: 09/16/16 22:17 Dose: 0.5 mg Morphine Sulfate (Morphine) 2 mg IVP Q4H PRN PRN Reason: Pain, moderate (4-7) Last Admin: 09/14/16 18:29 Dose: 2 mg Polyethylene Glycol (Miralax) 17 gm PO DAILY PRN PRN Reason: Constipation Last Admin: 09/15/16 10:33 Dose: 17 gm - Labs Labs: 09/16/16 06:20 09/17/16 06:50 PT 10.7 Seconds (9.9-11.8) 09/13/16 10:30 INR 0.99 (0.93-1.08) 09/13/16 10:30 APTT 26.4 Seconds (23.7-30.8) 09/13/16 10:30 - Constitutional Appears: Non-toxic, No Acute Distress - Neck Exam Neck Exam: absent: Meningismus - Respiratory Exam Respiratory Exam: Decreased Breath Sounds - Cardiovascular Exam Cardiovascular Exam: +S1, +S2 - GI/Abdominal Exam GI & Abdominal Exam: Soft. absent: Tenderness Assessment and Plan - Assessment and Plan (Free Text) Plan: Assessment Systemic Inflammatory Response Syndrome probably secondary to hypertensive urgency / emergency with associated Posterior Reversible Encephalopathy Syndrome (PRES) and acute renal failure, R/O sepsis from urinary tract infection ; patient is slowly improving Coagulase negative Staph in one blood cx bottle, most likely contamination HTN, poorly-controlled history of glaucoma history of cataracts sickle cell trait S/P Caesarian section obesity with BMI 31 Plan continue Rocephin pending final urine cx results; repeat blood cx are negative x 1 day; gave one dose of IV Daptomycin yesterday Will continue to monitor clinically
[2016-09-17] MEDS ORDERED: Hydrocerin(120 gm) TOP PRN ×2 (10:43→11:01)
[2016-09-17] MEDS ORDERED: Metoprolol 1 mg/ml Inj IVP ONE (12:20)
--- NOTE | 2016-09-17 13:37 | CT ---
PROCEDURE: CT Abdomen and Pelvis without intravenous contrast HISTORY: abd pain COMPARISON: None. TECHNIQUE: Without contrast.. Contrast Dose: Radiation dose: Total exam DLP = 1104 mGy-cm. FINDINGS: LOWER THORAX: Unremarkable. LIVER: Unremarkable. No gross lesion or ductal dilatation. GALLBLADDER AND BILE DUCTS: There is mural thickening in the gallbladder and a small amount of pericholecystic fluid, possible cholecystitis PANCREAS: Unremarkable. No gross lesion or ductal dilatation. SPLEEN: Unremarkable. ADRENALS: Unremarkable. No mass. KIDNEYS AND URETERS: Unremarkable. No hydronephrosis. No solid mass. VASCULATURE: Unremarkable. No aortic aneurysm. BOWEL: Unremarkable. No obstruction. No gross mural thickening. APPENDIX: Unremarkable. Normal appendix. PERITONEUM: Unremarkable. No free fluid. No free air. LYMPH NODES: Unremarkable. No enlarged lymph nodes. BLADDER: Unremarkable. REPRODUCTIVE: There is a right ovarian cyst measuring 3.5 x 5 cm. BONES: No acute fracture. OTHER FINDINGS: None. IMPRESSION: Mural thickening in the gallbladder, possible cholecystitis. Right ovarian cyst. No fluid in the cul-de-sac
--- NOTE | 2016-09-17 13:57 | CARD ---
APPROVED REPORT EKG Measurement Heart [id number] <Conclusion> Normal sinus rhythm Possible Left atrial enlargement Left ventricular hypertrophy ST & T wave abnormality, Abnormal ECG
--- NOTE | 2016-09-17 13:58 | RAD ---
PROCEDURE: CHEST RADIOGRAPH, 1 VIEW HISTORY: r/o pulm vascular congestion COMPARISON: None available. FINDINGS: LUNGS: Clear. PLEURA: No pneumothorax or pleural fluid seen. CARDIOVASCULAR: Mild cardiomegaly OSSEOUS STRUCTURES: No significant abnormalities. VISUALIZED UPPER ABDOMEN: Normal. OTHER FINDINGS: Left-sided PICC line in the right atrium IMPRESSION: No active disease.
--- NOTE | 2016-09-17 14:38 | CP.PCM.CON ---
<Keily Phillip - Last Filed: 09/17/16 16:33> History of Present Illness - History of Present Illness History of Present Illness: General Surgery Dr. Zamarripa HPI: 51 y/o F PMHx of HTN, sickle cell trait, glaucoma presented to [facility] on w/ CC of chest pain, SOB, dizziness/lightheadedness. Patient stated that she had been having these symptoms x4wks. Pain had been getting progressively worse. Pain was 9/10 on presentation in the ED. Pain was described as constant, sharp, and stabbing over the left sternal border w/o radiation. 2 weeks prior to presentation, patient reported nausea/vomiting and food intolerance. On admission, pt admitted to headache, vertigo, loss of vision in left eye, fever/ chills, palpitation. Pt was found to be in HTN emergency and admitted to the ICU for evaluation and treatment. Cardiology, Ophthamology, Nephrology, Neurology, and ID were consulted. Pt found to have NSTEMI 2/2 HTN crisis, retinal detachment, ESTEFANI, PRES syndrome, UTI, and bacteremia. Pt was transferred to [facility] on 09/16/16 after BP stablized on medication. This AM, pt began c/o abd pain and was found to have elevated LFTs on AM labs. CT abd/pelvis was ordered and showed gallbladder wall thickening, constipation, and right ovarian cyst 3.5 x 5 cm. Surgery was consulted for acute cholecystisits. Pt S&E @bedside this afternoon. Pt c/o N/V, abd pain, constipation, chills, food intolerance. NPO. PMHx: HTN, sickle cell trait, glaucoma, cataract, detached retina Meds: reviewed in chart Allergy: NKDA, green beans PSHx: x 4, cataract surgery, D&C SHx: smokes 1 pack/week for 30 years, former everyday drinker - quit 3 weeks ago , occasional marijuana use FHx: Mother - NH,DM; Sister - NH Review of Systems - Review of Systems All systems: reviewed and no additional remarkable complaints except (that which stated in HPI) Past Patient History - Infectious Disease Hx of Infectious Diseases: None - Past Medical History & Family History Past Medical History?: Yes - Past Social History Smoking Status: Former Smoker Alcohol: Other (used to drink everyday) Drugs: Cannabis Home Situation {Lives}: With Family - CARDIAC Hx Hypertension: Yes - HEENT Hx Blind: Yes Hx Cataracts: Yes - MUSCULOSKELETAL/RHEUMATOLOGICAL Hx Falls: No - PSYCHIATRIC Hx Substance Use: Yes - SURGICAL HISTORY Hx Section: Yes Hx Eye Surgery: Yes - ANESTHESIA Hx Anesthesia Reactions: No Hx Malignant Hyperthermia: No Meds Home Medications: Home Medication List Medication Instructions Recorded Confirmed Type Aspirin [Ecotrin] 81 mg PO DAILY tabec 09/14/16 Rx Carvedilol [Coreg] 3.125 mg PO BID tab 09/14/16 Rx Docusate [Colace] 100 mg PO DAILY cap 09/14/16 Rx Famotidine [Pepcid] 20 mg PO DAILY tab 09/14/16 Rx Morphine 2 mg IVP Q4H PRN #0 ml 09/14/16 Rx Ondansetron [Zofran Inj] 4 mg IVP Q6H PRN #0 vial 09/14/16 Rx Potassium Chloride [Potassium 20 meq IV .Q10H6M vial 09/14/16 Rx Chloride Inj] Allergies/Adverse Reactions: Allergies Allergy/AdvReac Type Severity Reaction Status Date / Time No Known Allergies Allergy Verified 12/09/11 17:22 - Medications Medications: Current Medications Amlodipine Besylate (Norvasc) 10 mg PO DAILY [facility] Last Admin: 09/17/16 09:01 Dose: 10 mg Aspirin (Ecotrin) 81 mg PO DAILY [facility] Last Admin: 09/17/16 09:01 Dose: 81 mg Atorvastatin Calcium (Lipitor) 20 mg PO DIN [facility] Last Admin: 09/16/16 17:47 Dose: 20 mg Carvedilol (Coreg) 12.5 mg PO BID [facility] Clonidine HCl (Catapres) 0.2 mg PO TID [facility] Last Admin: 09/17/16 14:11 Dose: 0.2 mg Docusate Sodium (Colace) 100 mg PO DAILY [facility] Last Admin: 09/17/16 09:01 Dose: 100 mg Famotidine (Pepcid) 20 mg PO DAILY [facility] Last Admin: 09/17/16 09:02 Dose: 20 mg Hydralazine HCl (Apresoline) 50 mg PO TID [facility] Last Admin: 09/17/16 14:11 Dose: 50 mg Ceftriaxone Sodium (Rocephin 1 Gram Ivpb) 100 mls @ 100 mls/hr IVPB DAILY [facility] PRN Reason: Protocol Last Admin: 09/17/16 09:02 Dose: 100 mls/hr Iron Sucrose 200 mg/ Sodium (Chloride) 110 mls @ 110 mls/hr IVPB DAILY [facility] Stop: 09/21/16 10:01 Last Admin: 09/17/16 10:14 Dose: 110 mls/hr Metronidazole (Flagyl) 50 mls @ 100 mls/hr IVPB Q8 ANNA PRN Reason: Protocol Stop: 09/22/16 14:04 Isosorbide Mononitrate (Imdur) 30 mg PO DAILY [facility] Last Admin: 09/17/16 09:01 Dose: 30 mg Lorazepam (Ativan) 0.5 mg IVP Q4H PRN; Protocol PRN Reason: Anxiety Last Admin: 09/16/16 22:17 Dose: 0.5 mg Metoprolol Tartrate (Lopressor) 5 mg IVP Q6H PRN PRN Reason: Systolic Blood Pressure Morphine Sulfate (Morphine) 2 mg IVP Q4H PRN PRN Reason: Pain, moderate (4-7) Last Admin: 09/14/16 18:29 Dose: 2 mg Multi-Ingredient Cream (Hydrocerin Cream) 1 ea TOP BID PRN PRN Reason: Dry nasal passages Polyethylene Glycol (Miralax) 17 gm PO DAILY PRN PRN Reason: Constipation Last Admin: 09/15/16 10:33 Dose: 17 gm Sodium Chloride ([place] Nasal [place]) 0 ml NS BID PRN PRN Reason: Nasal congestion Physical Exam - Constitutional Appears: Non-toxic, No Acute Distress - Head Exam Head Exam: NORMAL INSPECTION - Eye Exam Eye Exam: Normal appearance - ENT Exam ENT Exam: Mucous Membranes Moist - Respiratory Exam Respiratory Exam: NORMAL BREATHING PATTERN. absent: Accessory Muscle Use, Respiratory Distress - Cardiovascular Exam Cardiovascular Exam: absent: Bradycardia, Tachycardia - GI/Abdominal Exam GI & Abdominal Exam: Distended (obese), Hypoactive Bowel Sounds, Soft, Tenderness (RUQ/epigastric TTP). absent: Guarding Additional comments: (+) Lovell's Sign - Neurological Exam Neurological exam: Alert, Oriented x3 - Psychiatric Exam Psychiatric exam: Normal Affect, Normal Mood - Skin Skin Exam: Dry, Intact, Normal Color, Warm Results - Vital Signs Recent Vital Signs: Last Vital Signs Temp 98.4 F 09/17/16 07:33 Pulse 65 09/17/16 14:11 Resp 19 09/17/16 11:21 BP 193/110 H 09/17/16 14:11 Pulse Ox 100 09/17/16 11:21 - Labs Result Diagrams: 09/17/16 07:45 09/17/16 06:50 Labs: Laboratory Results - last 24 hr 09/17/16 09/17/16 09/17/16 06:00 06:50 07:45 WBC 12.5 H RBC 2.72 L Hgb 8.2 L Hct 22.8 L MCV 83.8 MCH 30.1 MCHC 36.0 RDW 18.5 H Plt Count 185 Gran % 84.5 H Lymph % (Auto) 5.9 L [place] % (Auto) 9.2 H Eos % (Auto) 0.3 L Baso % (Auto) 0.1 Gran # 10.52 H Lymph # 0.7 L [place] # 1.2 H Eos # 0.0 Baso # 0.01 Sodium 130 L Potassium 4.1 Chloride 97 Carbon Dioxide 18 L Anion Gap 19 BUN 90 H Creatinine 4.4 H Est GFR ( Amer) 13 Est GFR (Non-Af Amer) 11 Random Glucose 110 Calcium 8.5 Phosphorus 5.6 H Magnesium 2.2 Total Bilirubin 0.6 AST 69 H ALT 81 H Alkaline Phosphatase 282 H Total Protein 6.2 Albumin 3.1 Globulin 3.2 Albumin/Globulin Ratio 1.0 L Microbiology 09/15/16 11:27 Urine,Cano Urine Culture - Final Escherichia Coli 09/14/16 03:45 Blood S.aureus & Coag-Neg Staph PNA FISH - Final 09/14/16 03:45 Blood Gram Stain - Final Coagulase Neg Staphylococcus 09/13/16 13:45 Naris MRSA Culture (Admit) - Final MRSA NOT DETECTED 09/15/16 19:20 Blood-Venous Blood Culture - Preliminary 09/15/16 19:20 Blood-Venous NO GROWTH AFTER 24 HOURS 09/15/16 19:00 Blood-Venous Blood Culture - Preliminary 09/15/16 19:00 Blood-Venous NO GROWTH AFTER 24 HOURS 09/14/16 04:09 Blood Blood Culture - Preliminary 09/14/16 04:09 Blood NO GROWTH AFTER 3 DAYS - Imaging and Cardiology CT scan - abdomen Status: Image reviewed by me, Report reviewed by me Assessment & Plan - Assessment and Plan (Free Text) Assessment: 51 y/o F w/ abd pain and HTN emergency. - abd US - HIDA scan - NPO, IVF - cont Abx per ID - pain management - change anti-emetic to Reglan - soap suds enema - trend LFTs/T. 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 Marilou Phillip DO PGY1 <Rob Zamarripa - Last Filed: 09/27/16 00:07> Meds - Medications Medications: Current Medications Acetaminophen (Tylenol 325mg Tab) 650 mg PO Q4H PRN PRN Reason: headache Last Admin: 09/26/16 00:20 Dose: 650 mg Amlodipine Besylate (Norvasc) 10 mg PO DAILY [facility] Last Admin: 09/26/16 09:03 Dose: 10 mg Aspirin (Ecotrin) 81 mg PO DAILY [facility] Last Admin: 09/26/16 09:02 Dose: 81 mg Carvedilol (Coreg) 25 mg PO BID [facility] Last Admin: 09/26/16 17:01 Dose: 25 mg Clonazepam (Klonopin Wafers) 0.125 mg PO QAM ANNA PRN Reason: Protocol Last Admin: 09/26/16 09:02 Dose: 0.125 mg Clonazepam (Klonopin) 0.75 mg PO HS ANNA PRN Reason: Protocol Last Admin: 09/26/16 22:18 Dose: 0.75 mg Clonidine HCl (Catapres) 0.3 mg PO Q8 ANNA Last Admin: 09/26/16 22:17 Dose: 0.3 mg Docusate Sodium (Colace) 100 mg PO DAILY [facility] Last Admin: 09/26/16 09:03 Dose: 100 mg Doxazosin Mesylate (Cardura) 4 mg PO HS ANNA Last Admin: 09/26/16 22:17 Dose: 4 mg Hydralazine HCl (Apresoline) 50 mg PO Q6 ANNA Last Admin: 09/26/16 17:01 Dose: 50 mg Nicardipine HCl (Cardene Iv Premix) 200 mls @ 50 mls/hr IV .Q4H PRN; Protocol; 5 MG/HR PRN Reason: TITRATE PER MD ORDER Last Titration: 09/24/16 14:49 Dose: 0 mg/hr Isosorbide Mononitrate (Imdur) 120 mg PO DAILY [facility] Last Admin: 09/26/16 09:03 Dose: 120 mg Multi-Ingredient Cream (Hydrocerin Cream) 1 ea TOP BID PRN PRN Reason: Dry nasal passages Ondansetron HCl (Zofran Inj) 4 mg IVP Q8H PRN PRN Reason: Nausea/Vomiting Last Admin: 09/19/16 03:52 Dose: 4 mg Pantoprazole Sodium (Protonix Ec Tab) 40 mg PO ACB [facility] Last Admin: 09/26/16 08:32 Dose: 40 mg Polyethylene Glycol (Miralax) 17 gm PO BID [facility] Last Admin: 09/26/16 17:15 Dose: Not Given Senna/Docusate Sodium (Senokot S 50 Mg-8.6 Mg) 1 tab PO DAILY [facility] Last Admin: 09/26/16 09:01 Dose: 1 tab Sodium Chloride ([place] Nasal [place]) 0 ml NS BID [facility] Last Admin: 09/26/16 17:03 Dose: 1 spr Spironolactone (Aldactone) 50 mg PO DAILY [facility] Last Admin: 09/26/16 09:04 Dose: 50 mg Torsemide (Demadex) 10 mg PO BID [facility] Last Admin: 09/26/16 17:01 Dose: 10 mg Results - Vital Signs Recent Vital Signs: Last Vital Signs Temp 97.9 F 09/26/16 17:59 Pulse 66 09/26/16 22:17 Resp 20 09/26/16 17:59 BP 166/102 H 09/26/16 22:17 Pulse Ox 96 09/26/16 17:59 - Labs Result Diagrams: 09/26/16 05:15 09/26/16 05:15 Labs: Laboratory Results - last 24 hr 09/26/16 05:15 WBC 5.7 RBC 3.43 L Hgb 10.4 L Hct 29.9 L MCV 87.2 MCH 30.3 MCHC 34.8 RDW 15.9 H Plt Count 278 MPV 10.7 Gran % 67.0 Lymph % (Auto) 21.7 L [place] % (Auto) 8.2 H Eos % (Auto) 2.6 Baso % (Auto) 0.5 Gran # 3.83 Lymph # 1.2 [place] # 0.5 Eos # 0.2 Baso # 0.03 Sodium 135 Potassium 3.9 Chloride 98 Carbon Dioxide 28 Anion Gap 13 BUN 59 H Creatinine 3.7 H Est GFR ( Amer) 16 Est GFR (Non-Af Amer) 13 Random Glucose 96 Calcium 8.5 Phosphorus 4.7 H Magnesium 2.0 Total Bilirubin 0.4 AST 23 ALT 72 H Alkaline Phosphatase 159 H Total Protein 6.5 Albumin 3.1 Globulin 3.4 Albumin/Globulin Ratio 0.9 L Assessment & Plan - Assessment and Plan (Free Text) Assessment: Patient was seen and examined by me. I agree with assessment and plan as per resident's note. - Date & Time Date: 09/17/16 Time: 14:20
[2016-09-17] MEDS: metroNIDAZOLE IV 250mg/50 ml 50 ML IVPB SCH ×2 (14:50→23:09)
[2016-09-17] MEDS ORDERED: Dextrose 5%/0.45% NS 1,000 ML IV SCH (16:45)
--- NOTE | 2016-09-17 17:12 | PN ---
DATE: 09/17/2016 The patient is experiencing abdominal pain and vomiting. No chest pain. PHYSICAL EXAMINATION: VITAL SIGNS: Blood pressure 193/110, heart rate 65, respirations 19. HEENT: Pale conjunctivae. CHEST: Clear. HEART: S1, S2 regular. EXTREMITIES: No edema. LABORATORIES: Today's hemoglobin and hematocrit 8.2 and 22.8, white count 12.5, platelet count 185,0 00. SMA-7: Sodium 130, potassium 4.1, chloride 97, CO2 of 18, glucose 110, BUN 90, creatinine 4.4. Today's EKG revealed LVH with repolarization changes. Abdomen and pelvis CT scan revealed mural thi ckening on the gallbladder, possible cholecystitis, right ovarian cyst. ASSESSMENT: 1. Possible acute cholecystitis. 2. Uncontrolled hypertension. 3. Hypertensive encephalopathy. 4. Worsening renal insufficiency. RECOMMENDATIONS: Continue hydralazine 50 mg t.i.d. Increase clonidine to 0.3 mg t.i.d. Continue Cor eg at 12.5 mg twice a day, Imdur at 30 mg once a day, Lopressor at 5 mg intravenously q.6 hours p.r.n ., Norvasc 10 mg once a day. Awaiting abdominal ultrasound study to be performed today. Misael Carson MD cc: [id number] TT: 09/17/2016 17:11:41 Confirmation # [id number] Dictation # [id number]
--- NOTE | 2016-09-17 19:00 | US ---
HISTORY: abd pain r/o cholecystitis gallstones will still COMPARISON: None. TECHNIQUE: Sonographic evaluation of the abdomen. FINDINGS: LIVER: Measures 15.3 cm. Diffusely increased echogenicity of the liver parenchyma. Consistent with fatty infiltration. Smooth contour. No mass. No biliary dilatation. GALLBLADDER: Sludge. No calculi. Thickened wall up to 4 mm. COMMON BILE DUCT: Measures 6 mm. No stones. No dilatation. PANCREAS: Unremarkable as visualized. No mass. No ductal dilatation. RIGHT KIDNEY: Measures 11.1cm. Normal echogenicity. Simple upper pole cortical cyst, 1.7 cm. No calculus or hydronephrosis. No solid mass. LEFT KIDNEY: Measures 9.9cm. Normal echogenicity. No calculus, mass, or hydronephrosis. SPLEEN: Normal in size and contour. No mass. AORTA: No aneurysmal dilatation. IVC: Unremarkable. OTHER FINDINGS: Minimal ascites. IMPRESSION: Fatty infiltration of the liver. Gallbladder sludge without cholelithiasis. Nonspecific thickening of gallbladder wall. Minimal ascites.
[2016-09-17] MEDS ORDERED: Dextrose 5%/0.9% NS 1,000 ML IV SCH (23:15)
--- NOTE | 2016-09-18 05:58 | CP.PCM.PN ---
Subjective - Date & Time of Evaluation Date of Evaluation: 09/17/16 Time of Evaluation: 22:00 - Subjective Subjective: Patient reporting 2 episodes of vomiting today, feeling nauseous, unable to keep down PO intake earlier (now NPO); with R sided abdominal pain that she says has been ongoing since past month; Objective - Vital Signs/Intake and Output Vital Signs (last 24 hours): Temp Pulse Resp BP Pulse Ox 98.2 F 60 20 154/99 H 100 09/18/16 00:01 09/18/16 02:00 09/18/16 00:01 09/18/16 00:01 09/18/16 00:01 Intake and Output: 09/17/16 09/18/16 18:59 06:59 Intake Total 440 Output Total 200 0 Balance 240 0 - Medications Medications: Current Medications Amlodipine Besylate (Norvasc) 10 mg PO DAILY [facility] Last Admin: 09/17/16 09:01 Dose: 10 mg Aspirin (Ecotrin) 81 mg PO DAILY [facility] Last Admin: 09/17/16 09:01 Dose: 81 mg Atorvastatin Calcium (Lipitor) 20 mg PO DIN [facility] Last Admin: 09/17/16 17:08 Dose: 20 mg Carvedilol (Coreg) 12.5 mg PO BID [facility] Last Admin: 09/17/16 20:00 Dose: Not Given Clonidine HCl (Catapres) 0.3 mg PO TID [facility] Last Admin: 09/17/16 17:09 Dose: 0.3 mg Docusate Sodium (Colace) 100 mg PO DAILY [facility] Last Admin: 09/17/16 09:01 Dose: 100 mg Famotidine (Pepcid) 20 mg PO DAILY [facility] Last Admin: 09/17/16 09:02 Dose: 20 mg Hydralazine HCl (Apresoline) 50 mg PO TID [facility] Last Admin: 09/17/16 17:08 Dose: 50 mg Ceftriaxone Sodium (Rocephin 1 Gram Ivpb) 100 mls @ 100 mls/hr IVPB DAILY [facility] PRN Reason: Protocol Last Admin: 09/17/16 09:02 Dose: 100 mls/hr Iron Sucrose 200 mg/ Sodium (Chloride) 110 mls @ 110 mls/hr IVPB DAILY [facility] Stop: 09/21/16 10:01 Last Admin: 09/17/16 10:14 Dose: 110 mls/hr Metronidazole (Flagyl) 50 mls @ 100 mls/hr IVPB Q8 ANNA PRN Reason: Protocol Stop: 09/22/16 14:04 Last Admin: 09/17/16 23:09 Dose: 100 mls/hr Dextrose/Sodium Chloride (Dextrose 5%/0.9% Ns 1000 Ml) 1,000 mls @ 125 mls/hr IV .Q8H [facility] Last Admin: 09/17/16 23:10 Dose: 125 mls/hr Isosorbide Mononitrate (Imdur) 30 mg PO DAILY [facility] Last Admin: 09/17/16 09:01 Dose: 30 mg Lorazepam (Ativan) 0.5 mg IVP Q4H PRN; Protocol PRN Reason: Anxiety Last Admin: 09/16/16 22:17 Dose: 0.5 mg Metoprolol Tartrate (Lopressor) 5 mg IVP Q6H PRN PRN Reason: Systolic Blood Pressure Morphine Sulfate (Morphine) 2 mg IVP Q4H PRN PRN Reason: Pain, moderate (4-7) Last Admin: 09/14/16 18:29 Dose: 2 mg Multi-Ingredient Cream (Hydrocerin Cream) 1 ea TOP BID PRN PRN Reason: Dry nasal passages Polyethylene Glycol (Miralax) 17 gm PO DAILY PRN PRN Reason: Constipation Last Admin: 09/15/16 10:33 Dose: 17 gm Sodium Chloride ([place] Nasal [place]) 0 ml NS BID PRN PRN Reason: Nasal congestion - Labs Labs: 09/17/16 07:45 09/17/16 06:50 PT 10.7 Seconds (9.9-11.8) 09/13/16 10:30 INR 0.99 (0.93-1.08) 09/13/16 10:30 APTT 26.4 Seconds (23.7-30.8) 09/13/16 10:30 - Constitutional Appears: Non-toxic - Head Exam Head Exam: NORMAL INSPECTION Additional comments: Mild distress - ENT Exam ENT Exam: Mucous Membranes Moist - Neck Exam Neck Exam: Normal Inspection - Respiratory Exam Respiratory Exam: Clear to Ausculation Bilateral, NORMAL BREATHING PATTERN - GI/Abdominal Exam GI & Abdominal Exam: Soft, Tenderness. absent: Distended Additional comments: RUQ tenderness to palpation - Extremities Exam Additional comments: Mild lower leg edema bilaterally; - Neurological Exam Neurological Exam: Alert, Awake - Psychiatric Exam Psychiatric exam: Normal Affect, Normal Mood - Skin Skin Exam: Warm. absent: Cyanosis Assessment and Plan (1) Acute kidney injury Assessment & Plan: Secondary to malignant hypertension, worsened by need to aggressively control BP in setting of PRES syndrome; urine indices today also show patient is volume depleted (Ur Na < 5), likely due to pressure natiuresis and worsened with vomiting/poor PO intake; Renal US indicative of CKD but baseline creatinine unknown (1.0 in 2012); -Need to bring blood pressure down gradually at this point (today with SBP 200' s in am, down to 160's in pm), recommend not to decrease SBP to less than 150's for next 24-48 hrs); -change IVF to D5NS at 125 cc/hr Status: Acute (2) PRES (posterior reversible encephalopathy syndrome) Assessment & Plan: With suggestive MRI findings; one reading of very high diastolic pressure today (BP 201/126), need to keep < 100-105; Status: Acute (3) Hypertensive emergency Assessment & Plan: Off nicardipine drip, now on on 5 anti-htn meds; clonidine, coreg and hydralazine doses increased today; volume depletion may be causing a renin driven htn and so need to keep careful watch on dropping BP as patient is volume resuscitated; BP goals as mentioned above; Status: Acute (4) Malignant hypertension Assessment & Plan: Plasma metanephrines significantly elevated; plasma aldosterone level elevated but likely in setting of volume depletion (awaiting renin level); need check 24 hr urine metanephrines (can be done as outpatient); Status: Acute (5) Abdominal pain Assessment & Plan: RUQ pain, surgery consulted; currently NPO; Status: Acute (6) UTI (urinary tract infection) Assessment & Plan: On ceftriaxone, no renal dose adjustment needed; Status: Acute (7) Hyponatremia Assessment & Plan: Mild, in setting of volume depletion; should improve with NS; Status: Acute
[2016-09-18] MEDS: metroNIDAZOLE IV 250mg/50 ml 50 ML IVPB SCH ×2 (06:23→16:01)
[2016-09-18] MEDS: Metoprolol 1 mg/ml Inj IVP PRN (07:18)
[2016-09-18 07:21] LABS: ADD MANUAL DIFF? NO
[2016-09-18 07:26] LABS: BASO # 0.01 K/mm3 (0.0-2.0); BASO % 0.1 % (0.0-3.0); EOS # 0.1 (0.0-0.7); EOS % 0.8 % (1.5-5.0); GRAN # 7.38 (1.4-6.5); LYMPH # 0.5 (1.2-3.4); LYMPH % 6.1 % (22.0-35.0); MEAN CELL VOLUME 84.3 fL (80.0-105.0); MEAN CORPUSCULAR HEMOGLOBIN 30.3 pg (25.0-35.0); MEAN CORPUSCULAR HGB CONC 35.9 g/dl (31.0-37.0); MEAN PLATELET VOLUME 12.6 fl (7.0-11.0); MONO # 0.8 (0.1-0.6); PLATELET COUNT 210 10^3/uL (120.0-450.0); RED CELL DISTRIBUTION WIDTH 18.5 % (11.5-14.5); WHITE BLOOD COUNT 8.8 10^3/ul (4.5-11.0)
[2016-09-18 07:39] LABS: ALB/GLOB RATIO 0.9 (1.1-1.8); BILIRUBIN,TOTAL 0.7 mg/dL (0.2-1.3); CALCIUM 8.7 mg/dL (8.4-10.5); MAGNESIUM 2.3 mg/dL (1.7-2.2); POTASSIUM 3.9 mmol/L (3.6-5.0); TOTAL PROTEIN 6.3 g/dL (5.8-8.3)
[2016-09-18] MEDS: cefTRIAXone 1 gm 100 ML IVPB SCH (09:07)
--- NOTE | 2016-09-18 11:21 | CP.PCM.PN ---
<Keily Phillip - Last Filed: 09/18/16 15:31> Subjective - Date & Time of Evaluation Date of Evaluation: 09/18/16 Time of Evaluation: 10:00 - Subjective Subjective: General Surgery Dr. Zamarripa Pt S&E @bedside. NAEO. continues to have severely elevated BP w/ systolic in 200s. denies F/C, CP, SOB, abd pain, N/V, diarrhea. admits to some constipation. currently NPO due to vomiting Objective - Vital Signs/Intake and Output Vital Signs (last 24 hours): Temp Pulse Resp BP Pulse Ox 98.2 F 65 20 200/118 H 100 09/18/16 00:01 09/18/16 09:05 09/18/16 00:01 09/18/16 09:05 09/18/16 00:01 Intake and Output: 09/18/16 09/18/16 06:59 18:59 Intake Total 1300 Output Total 0 Balance 1300 - Medications Medications: Current Medications Amlodipine Besylate (Norvasc) 10 mg PO DAILY [facility] Last Admin: 09/18/16 09:05 Dose: 10 mg Aspirin (Ecotrin) 81 mg PO DAILY [facility] Last Admin: 09/18/16 09:05 Dose: 81 mg Atorvastatin Calcium (Lipitor) 20 mg PO DIN [facility] Last Admin: 09/17/16 17:08 Dose: 20 mg Carvedilol (Coreg) 12.5 mg PO BID [facility] Last Admin: 09/18/16 09:05 Dose: 12.5 mg Clonidine HCl (Catapres) 0.3 mg PO TID [facility] Last Admin: 09/18/16 09:04 Dose: 0.3 mg Docusate Sodium (Colace) 100 mg PO DAILY [facility] Last Admin: 09/18/16 09:05 Dose: 100 mg Famotidine (Pepcid) 20 mg PO DAILY [facility] Last Admin: 09/18/16 09:06 Dose: 20 mg Hydralazine HCl (Apresoline) 50 mg PO TID [facility] Last Admin: 09/18/16 09:04 Dose: 50 mg Ceftriaxone Sodium (Rocephin 1 Gram Ivpb) 100 mls @ 100 mls/hr IVPB DAILY [facility] PRN Reason: Protocol Last Admin: 09/18/16 09:07 Dose: 100 mls/hr Iron Sucrose 200 mg/ Sodium (Chloride) 110 mls @ 110 mls/hr IVPB DAILY [facility] Stop: 09/21/16 10:01 Last Admin: 09/18/16 09:06 Dose: 110 mls/hr Metronidazole (Flagyl) 50 mls @ 100 mls/hr IVPB Q8 [facility] PRN Reason: Protocol Stop: 09/22/16 14:04 Last Admin: 09/18/16 06:23 Dose: 100 mls/hr Isosorbide Mononitrate (Imdur) 30 mg PO DAILY [facility] Last Admin: 09/18/16 09:03 Dose: 30 mg Lorazepam (Ativan) 0.5 mg IVP Q4H PRN; Protocol PRN Reason: Anxiety Last Admin: 09/16/16 22:17 Dose: 0.5 mg Metoprolol Tartrate (Lopressor) 5 mg IVP Q6H PRN PRN Reason: Systolic Blood Pressure Last Admin: 09/18/16 07:18 Dose: 5 mg Morphine Sulfate (Morphine) 2 mg IVP Q4H PRN PRN Reason: Pain, moderate (4-7) Last Admin: 09/14/16 18:29 Dose: 2 mg Multi-Ingredient Cream (Hydrocerin Cream) 1 ea TOP BID PRN PRN Reason: Dry nasal passages Polyethylene Glycol (Miralax) 17 gm PO DAILY PRN PRN Reason: Constipation Last Admin: 09/15/16 10:33 Dose: 17 gm Sodium Chloride ([place] Nasal [place]) 0 ml NS BID PRN PRN Reason: Nasal congestion - Labs Labs: 09/18/16 06:45 09/18/16 06:45 Laboratory Tests 09/17/16 09/17/16 09/18/16 06:00 06:50 06:45 Calcium 8.5 8.7 Phosphorus 5.6 H 6.0 H Magnesium 2.2 2.3 H Total Bilirubin 0.6 AST 69 H 197 H ALT 81 H 241 H Alkaline Phosphatase 282 H 368 H Total Protein 6.2 6.3 Albumin 3.1 3.1 Microbiology 09/15/16 11:27 Urine,Cano Urine Culture - Final Escherichia Coli 09/15/16 19:20 Blood-Venous Blood Culture - Preliminary 09/15/16 19:20 Blood-Venous NO GROWTH AFTER 48 HOURS 09/15/16 19:00 Blood-Venous Blood Culture - Preliminary 09/15/16 19:00 Blood-Venous NO GROWTH AFTER 48 HOURS - Constitutional Appears: Non-toxic, No Acute Distress - Head Exam Head Exam: NORMAL INSPECTION - Eye Exam Eye Exam: Normal appearance - ENT Exam ENT Exam: Mucous Membranes Moist - Respiratory Exam Respiratory Exam: NORMAL BREATHING PATTERN. absent: Accessory Muscle Use, Respiratory Distress - GI/Abdominal Exam GI & Abdominal Exam: Soft. absent: Distended, Guarding, Rigid, Tenderness, Rebound Additional comments: (-) Lovell's sign - Extremities Exam Extremities Exam: Normal Inspection. absent: Pedal Edema, Tenderness - Neurological Exam Neurological Exam: Alert, Awake, Oriented x3 - Psychiatric Exam Psychiatric exam: Normal Affect, Normal Mood - Skin Skin Exam: Dry, Intact, Normal Color, Warm Assessment and Plan - Assessment and Plan (Free Text) Assessment: 51 y/o F w/ abd pain and HTN emergency. 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 Marilou Phillip DO PGY1 <Rob Zamarripa - Last Filed: 09/27/16 00:09> Subjective - Date & Time of Evaluation Date of Evaluation: 09/18/16 Time of Evaluation: 15:10 Objective - Vital Signs/Intake and Output Vital Signs (last 24 hours): Temp Pulse Resp BP Pulse Ox 97.9 F 66 20 166/102 H 96 09/26/16 17:59 09/26/16 22:17 09/26/16 17:59 09/26/16 22:17 09/26/16 17:59 Intake and Output: 09/26/16 09/27/16 18:59 06:59 Intake Total 720 Output Total 600 Balance 120 - Medications Medications: Current Medications Acetaminophen (Tylenol 325mg Tab) 650 mg PO Q4H PRN PRN Reason: headache Last Admin: 09/26/16 00:20 Dose: 650 mg Amlodipine Besylate (Norvasc) 10 mg PO DAILY [facility] Last Admin: 09/26/16 09:03 Dose: 10 mg Aspirin (Ecotrin) 81 mg PO DAILY [facility] Last Admin: 09/26/16 09:02 Dose: 81 mg Carvedilol (Coreg) 25 mg PO BID [facility] Last Admin: 09/26/16 17:01 Dose: 25 mg Clonazepam (Klonopin Wafers) 0.125 mg PO QAM [facility] PRN Reason: Protocol Last Admin: 09/26/16 09:02 Dose: 0.125 mg Clonazepam (Klonopin) 0.75 mg PO HS [facility] PRN Reason: Protocol Last Admin: 09/26/16 22:18 Dose: 0.75 mg Clonidine HCl (Catapres) 0.3 mg PO Q8 [facility] Last Admin: 09/26/16 22:17 Dose: 0.3 mg Docusate Sodium (Colace) 100 mg PO DAILY [facility] Last Admin: 09/26/16 09:03 Dose: 100 mg Doxazosin Mesylate (Cardura) 4 mg PO HS [facility] Last Admin: 09/26/16 22:17 Dose: 4 mg Hydralazine HCl (Apresoline) 50 mg PO Q6 [facility] Last Admin: 09/26/16 17:01 Dose: 50 mg Nicardipine HCl (Cardene Iv Premix) 200 mls @ 50 mls/hr IV .Q4H PRN; Protocol; 5 MG/HR PRN Reason: TITRATE PER MD ORDER Last Titration: 09/24/16 14:49 Dose: 0 mg/hr Isosorbide Mononitrate (Imdur) 120 mg PO DAILY [facility] Last Admin: 09/26/16 09:03 Dose: 120 mg Multi-Ingredient Cream (Hydrocerin Cream) 1 ea TOP BID PRN PRN Reason: Dry nasal passages Ondansetron HCl (Zofran Inj) 4 mg IVP Q8H PRN PRN Reason: Nausea/Vomiting Last Admin: 09/19/16 03:52 Dose: 4 mg Pantoprazole Sodium (Protonix Ec Tab) 40 mg PO ACB [facility] Last Admin: 09/26/16 08:32 Dose: 40 mg Polyethylene Glycol (Miralax) 17 gm PO BID [facility] Last Admin: 09/26/16 17:15 Dose: Not Given Senna/Docusate Sodium (Senokot S 50 Mg-8.6 Mg) 1 tab PO DAILY [facility] Last Admin: 09/26/16 09:01 Dose: 1 tab Sodium Chloride ([place] Nasal [place]) 0 ml NS BID [facility] Last Admin: 09/26/16 17:03 Dose: 1 spr Spironolactone (Aldactone) 50 mg PO DAILY [facility] Last Admin: 09/26/16 09:04 Dose: 50 mg Torsemide (Demadex) 10 mg PO BID [facility] Last Admin: 09/26/16 17:01 Dose: 10 mg - Labs Labs: 09/26/16 05:15 09/26/16 05:15 PT 11.7 Seconds (9.9-11.8) 09/19/16 11:50 INR 1.08 (0.93-1.08) 09/19/16 11:50 APTT 26.4 Seconds (23.7-30.8) 09/13/16 10:30 Assessment and Plan - Assessment and Plan (Free Text) Assessment: Patient was seen and examined by me. I agree with assessment and plan as per resident's note.
--- NOTE | 2016-09-18 12:02 | PN ---
DATE: 09/18/2016 The patient is a 51-year-old female with history of hypertension, admitted with hypertensive emergenc y, findings consistent with PRES syndrome, acute renal failure. The patient, who had been vomiting y esterday, today with no nausea, no vomiting, tolerating liquids this morning. No more abdominal pain . Gives further history of having spells for the last 3-4 weeks during which she feels very anxious, has palpitations, feels very lethargic, reports not having these spells previously. PHYSICAL EXAMINATION: VITAL SIGNS: Blood pressure 200/118, heart rate 65, saturation at midnight was 100% on room air with a respiration rate of 20. GENERAL: The patient in no distress, speaking comfortably coherently. HEENT: Moist mucous membranes. No scleral icterus. CHEST: Clear to auscultation bilaterally. HEART: S1, S2 positive, no murmurs, no gallops. ABDOMEN: Soft, nontender, nondistended. EXTREMITIES: Very mild lower leg edema bilaterally. Normal capillary refill. ASSESSMENT: 1. Acute renal failure on chronic kidney disease, as evidenced by echogenic kidneys on ultrasound. C reatinine was 1.0 in 2012; however, no recent baseline. Known acute renal failure secondary to malyuriy nova hypertension worsened by need to control blood pressure stringently in the setting of PRES syndr ome. 2. Hypertensive emergency. The patient had been on nicardipine drip, stopped and transferred out of ICU yesterday morning. Blood pressure had been acceptable during the day yesterday with reading at m idnight 154/99, heart rate of 62 with medications doses increased yesterday. Currently on 5 meds; am lodipine 10 mg, Coreg 12.5 mg b.i.d., clonidine 0.3 mg t.i.d., hydralazine 50 mg t.i.d., and Imdur 30 mg daily. Marked increase in blood pressure this morning, likely due to IV fluids started late yest erday evening and is consistent with a hyperaldosterone state. 3. Malignant hypertension. The patient gives a history consistent with possible pheochromocytoma. P lasma metanephrines elevated to almost 4 times upper limit of normal. We will need confirmatory urin e 24-hour study that can be done as outpatient. Aldosterone level, although aldosterone-renin ratio not yet available. Awaiting rennin level. 4. Hyponatremia, improving. Urine indices yesterday indicative of volume depletion with urine sodium less than 5 and urine osmolality 358, elevated. Therefore, patient was started on IV fluids, stoppe d today, due to increased blood pressure. We will repeat urine studies to see if volume depletion oneil s corrected. 5. Urinary tract infection, on ceftriaxone. No renal dose adjustment needed. PLAN: 1. Discontinuing IV fluids. 2. Checking urine electrolytes. 3. Starting Aldactone 25 mg daily. Shane Rosen MD cc: [id number] TT: 09/18/2016 12:01:47 Confirmation # [id number] Dictation # [id number] ln
--- NOTE | 2016-09-18 13:07 | CON ---
DATE: 09/18/2016 REQUESTING PHYSICIAN: Dr. Jayla Mitchell. REASON FOR CONSULTATION: I have been asked to see this 51-year-old female, who was [facility] to [facility] with accelerated hypertension and altered mental status, whom I have been asked to see for el evated liver enzymes. The patient has been noncompliant with her hypertension medications. The patient, on admission to the hospital, had nausea, vomiting, and change in vision in her left eye . The patient denies any rectal bleeding, melena, abdominal pain, nausea, or vomiting. She does hav e a urinary tract infection, with Escherichia coli and positive blood cultures for gram-positive cocc i. Her LFTs were noted to be elevated, with AST 197, ALT 241, and alkaline phosphatase 368 this morn ing. She is on Rocephin 1 g daily. She does have a history of excessive alcohol use, drinking 6-8 c ans of beer daily on a regular basis. Her last drink was several weeks ago. CT scan of the abdomen revealed fatty liver with a thick-walled gallbladder wall, with pericholecystic fluid. Ultrasound of the gallbladder shows gallbladder sludge, without any stones. Hepatobiliary scan, from 09/17, is neg ative for cystic duct obstruction. Again, she currently denies any abdominal pain, nausea, or vomiti ng. PAST MEDICAL HISTORY: Notable for uncontrolled hypertension, with noncompliance with her blood press ure medications, and alcohol use. SOCIAL HISTORY: She quit cigarette smoking years ago. Again, she consumes 6-8 cans of beer daily, w ith her last drink several weeks ago. REVIEW OF SYSTEMS: A 14-point review of systems is negative for abdominal pain, nausea, vomiting, re ctal bleeding, or melena. PHYSICAL EXAMINATION: GENERAL: Obese female, lying in bed, in no acute distress. Her BMI is 32.8. VITAL SIGNS: Reveal a temperature of 97.9, blood pressure 167/105, heart rate of 60. HEENT: Reveals sclerae to be white, conjunctivae pale. Oral mucosa is moist. NECK: Supple. CHEST: Reveals lungs to be clear. HEART: Reveals regular rate and rhythm. ABDOMEN: Obese, soft, nontender. EXTREMITIES: Show no edema. LABORATORY DATA: Reveal BUN 87, creatinine 4.6, AST up to 197, ALT 241, alkaline phosphatase is 368. IMPRESSION: A 51-year-old female, with history of hypertension, noncompliant with medications, admit harish with hypertensive crisis with nausea, vomiting, change in vision, with anemia, [id number] r enal failure, Escherichia coli urinary tract infection, blood culture positive for gram-positive cocc i, on Rocephin. The elevated liver enzymes, most likely, secondary to underlying alcoholic liver dis ease. She is noted to have steatosis on CAT scan with possible drug toxicity from Rocephin. RECOMMENDATIONS: 1. I will discontinue Rocephin. 2. Check hepatitis serology. 3. Follow liver enzymes. Carlos Moran MD cc: [id number] TT: 09/18/2016 13:06:36 Confirmation # [id number] Dictation # [id number] ln
--- NOTE | 2016-09-18 13:44 | CP.PCM.PN ---
<Umesh Williamson - Last Filed: 09/18/16 13:37> Subjective - Date & Time of Evaluation Date of Evaluation: 09/18/16 Time of Evaluation: 08:15 - Subjective Subjective: Dr. Williamson PGY 1 Hospitalist note Patient seen and examined at bedside. No acute vents overnight. She is resting in bed comfortably. She no longer has abdominal pain, and has yet to have another episode of epistaxis. She notes that when the room was cleaned, the chemicals irritated her nose and eyes but has since resolved. She denies any fever, chills, chest pain, SOB, palpitations, nasuea, vomiting, diarrhea, numbness or tingling. Objective - Vital Signs/Intake and Output Vital Signs (last 24 hours): Temp Pulse Resp BP Pulse Ox 98.2 F 68 20 200/118 H 100 09/18/16 00:01 09/18/16 10:00 09/18/16 00:01 09/18/16 09:05 09/18/16 00:01 Intake and Output: 09/18/16 09/18/16 06:59 18:59 Intake Total 1300 Output Total 0 Balance 1300 - Medications Medications: Current Medications Amlodipine Besylate (Norvasc) 10 mg PO DAILY [facility] Last Admin: 09/18/16 09:05 Dose: 10 mg Aspirin (Ecotrin) 81 mg PO DAILY [facility] Last Admin: 09/18/16 09:05 Dose: 81 mg Atorvastatin Calcium (Lipitor) 20 mg PO DIN [facility] Last Admin: 09/17/16 17:08 Dose: 20 mg Carvedilol (Coreg) 12.5 mg PO BID [facility] Last Admin: 09/18/16 09:05 Dose: 12.5 mg Clonidine HCl (Catapres) 0.3 mg PO TID [facility] Last Admin: 09/18/16 09:04 Dose: 0.3 mg Docusate Sodium (Colace) 100 mg PO DAILY [facility] Last Admin: 09/18/16 09:05 Dose: 100 mg Hydralazine HCl (Apresoline) 50 mg PO TID [facility] Last Admin: 09/18/16 09:04 Dose: 50 mg Iron Sucrose 200 mg/ Sodium (Chloride) 110 mls @ 110 mls/hr IVPB DAILY [facility] Stop: 09/21/16 10:01 Last Admin: 09/18/16 09:06 Dose: 110 mls/hr Metronidazole (Flagyl) 50 mls @ 100 mls/hr IVPB Q8 [facility] PRN Reason: Protocol Stop: 09/22/16 14:04 Last Admin: 09/18/16 06:23 Dose: 100 mls/hr Isosorbide Mononitrate (Imdur) 30 mg PO DAILY [facility] Last Admin: 09/18/16 09:03 Dose: 30 mg Lorazepam (Ativan) 0.5 mg IVP Q4H PRN; Protocol PRN Reason: Anxiety Last Admin: 09/16/16 22:17 Dose: 0.5 mg Metoprolol Tartrate (Lopressor) 5 mg IVP Q6H PRN PRN Reason: Systolic Blood Pressure Last Admin: 09/18/16 07:18 Dose: 5 mg Morphine Sulfate (Morphine) 2 mg IVP Q4H PRN PRN Reason: Pain, moderate (4-7) Last Admin: 09/14/16 18:29 Dose: 2 mg Multi-Ingredient Cream (Hydrocerin Cream) 1 ea TOP BID PRN PRN Reason: Dry nasal passages Pantoprazole Sodium (Protonix Ec Tab) 40 mg PO ACB ANNA Polyethylene Glycol (Miralax) 17 gm PO DAILY PRN PRN Reason: Constipation Last Admin: 09/15/16 10:33 Dose: 17 gm Sodium Chloride ([place] Nasal [place]) 0 ml NS BID PRN PRN Reason: Nasal congestion - Labs Labs: 09/18/16 06:45 09/18/16 06:45 PT 10.7 Seconds (9.9-11.8) 09/13/16 10:30 INR 0.99 (0.93-1.08) 09/13/16 10:30 APTT 26.4 Seconds (23.7-30.8) 09/13/16 10:30 - Constitutional Appears: Non-toxic, No Acute Distress - Head Exam Head Exam: ATRAUMATIC, NORMOCEPHALIC - Eye Exam Eye Exam: EOMI, Normal appearance, PERRL Pupil Exam: NORMAL ACCOMODATION, PERRL - ENT Exam ENT Exam: Mucous Membranes Moist - Neck Exam Neck Exam: Normal Inspection - Respiratory Exam Respiratory Exam: Clear to Ausculation Bilateral, NORMAL BREATHING PATTERN. absent: Rales, Rhonchi, Wheezes - Cardiovascular Exam Cardiovascular Exam: REGULAR RHYTHM, +S1, +S2 - GI/Abdominal Exam GI & Abdominal Exam: Soft, Normal Bowel Sounds. absent: Tenderness - Extremities Exam Extremities Exam: Full ROM, Normal Capillary Refill, Pedal Edema (+1). absent: Tenderness - Neurological Exam Neurological Exam: Alert, Awake, CN II-XII Intact, Oriented x3 - Psychiatric Exam Psychiatric exam: Normal Affect, Normal Mood - Skin Skin Exam: Dry, Intact, Warm Assessment and Plan - Assessment and Plan (Free Text) Assessment: 51 year old female with history of HTN, non compliant with medications at home, sickle cell trait, glaucoma, marijuana use, former alcohol abuser, OTC motrin use for headache on regular basis who presented with hypertensive emergency and found to have dehydration, hyponatremia, hypokalemia, elevated troponin, CHF due to systolic dysfunction (EF 35-40%), acute kidney injury, sepsis secondary to UTI and PRES syndrome. Today, LFT's elevated. Plan: 1. Hypertensive Emergency Nephro consult, Dr. Mcgarry, help appreciated Opthlamology consult, Dr. Bae, help appreciated Cardio consult, Dr. Carson, help appreciated ECHO: LV normal size, mild concentric LVH, mild-mod impaired systolic function EF35-40, mild-mod hypokinesis apical anterior wall, mild mitral regurg, trace aortic regurg, mild tricuspid regurg Renal US: Medical renal disease, 1.6 cm simple cyst on upper pole of r kidney ( see full report). MRI Brain: extensice signal abnormality in brainstem and basal ganglia bilaterally, particularly thalami, suspicious for edema. Extensive white matter signal abnormality in cerebral hemispheresbilaterally. Uncertain etiology, could be hypertensive/infectious/inflammatory encephalopathy extensivve demyelinating disease, toxic insult, or underlying metabolic abnormality (see full report). CT head: extensive hypodensity in the perventricular white matter, sheyla, and cerebellar white matter. Could represent vasogenic edema related to HTN or chronic microvascular disease (see full report). CT chest: mild cardiomegaly, very mild emphysematous changes in lung apices bilaterally (see full report). CT abd/pelvos: Right ovarian cyst (see full report). Carotid duplex: bilateral 20-39% stenoses of proximal ICA, antegrade flow in both vertebral arteries (see full report). ASA 81 mg PO daily Norvasc 10 mg PO daily Coreg 12.5 PO BID Hydralazine 50 mg PO TID Clonidine 0.3 mg PO TID Isosorbide Mononitrate 30 mg PO daily stopped Nicardipine drip stop IVF and give 1 dose aldactone f/u daily labs Heart healthy diet 2. Chest Pain ECHO: LV normal size, mild concentric LVH, mild-mod impaired systolic function EF35-40, mild-mod hypokinesis apical anterior wall, mild mitral regurg, trace aortic regurg, mild tricuspid regurg Carotid duplex: bilateral 20-39% stenoses of proximal ICA, antegrade flow in both vertebral arteries (see full report). Lipitor 20 mg PO HS Cardio consult, Dr. Carson, help appreciated Cardiac enzymes 0.20-->0.28-->1.98-->1.43-->2.43-->2.24 f/u daily labs BNP [id number] 3. ESTEFANI Nephro consult, Dr. Mcgarry, help appreciated Bun/Cr: 87/4.6 DC IVF due to increased BP Renal US: Medical renal disease, 1.6 cm simple cyst on upper pole of r kidney ( see full report). 4. Dyspnea ECHO: LV normal size, mild concentric LVH, mild-mod impaired systolic function EF35-40, mild-mod hypokinesis apical anterior wall, mild mitral regurg, trace aortic regurg, mild tricuspid regurg Carotid duplex: bilateral 20-39% stenoses of proximal ICA, antegrade flow in both vertebral arteries (see full report). ASA 81 mg PO daily Norvasc 5 mg PO daily Nicardipine drip Nephro consult, Dr. Mcgarry, help appreciated Opthlamology consult, Dr. Bae, help appreciated Cardio consult, Dr. Carson, help appreciated Cardiac enzymes 0.20-->0.28-->1.98-->1.43-->2.43-->2.24 f/u daily labs BNP [id number] 5. Hypokalemia Resolved K+ 3.9 Monitor 6. UTI UA showed blood and elevated leukocyte esterase Urine culture grew E. Coli Rocephin 1 gm IVPB daily 7. Anemia Iron sucrose 200 mg IVPB daily 8. Glaucoma Tropicamide 1% 1 drop OU 9. Epitaxis Hydrocerin cream PRN [place] nasal spray PRN 10. Abnormal LFT's GI consulted, help appreciated Surgery consulted. help appreciated Abdominal US: fatty infilatration of the liver, gallbladder sludge without cholelithiasis, nonspecific thickening of gallbladder wall [see full report] HIDA scan: F/U official read 11. Prophylactic measures Pepcid 20 mg PO daily Colace 100 mg PO daily Miralax 17 gm PO daily PRN Assessment and plan discussed with attending physician. <StephenPatsy B - Last Filed: 09/19/16 14:22> Objective - Vital Signs/Intake and Output Vital Signs (last 24 hours): Temp Pulse Resp BP Pulse Ox 98.2 F 61 20 172/106 H 100 09/18/16 00:01 09/18/16 15:06 09/18/16 00:01 09/18/16 15:06 09/18/16 00:01 Intake and Output: 09/18/16 09/18/16 06:59 18:59 Intake Total 1300 Output Total 0 Balance 1300 - Medications Medications: Current Medications Amlodipine Besylate (Norvasc) 10 mg PO DAILY [facility] Last Admin: 09/18/16 09:05 Dose: 10 mg Aspirin (Ecotrin) 81 mg PO DAILY [facility] Last Admin: 09/18/16 09:05 Dose: 81 mg Atorvastatin Calcium (Lipitor) 20 mg PO DIN [facility] Last Admin: 09/17/16 17:08 Dose: 20 mg Carvedilol (Coreg) 12.5 mg PO BID [facility] Last Admin: 09/18/16 09:05 Dose: 12.5 mg Clonidine HCl (Catapres) 0.3 mg PO TID [facility] Last Admin: 09/18/16 15:04 Dose: 0.3 mg Docusate Sodium (Colace) 100 mg PO DAILY [facility] Last Admin: 09/18/16 09:05 Dose: 100 mg Hydralazine HCl (Apresoline) 50 mg PO TID [facility] Last Admin: 09/18/16 15:06 Dose: 50 mg Iron Sucrose 200 mg/ Sodium (Chloride) 110 mls @ 110 mls/hr IVPB DAILY [facility] Stop: 09/21/16 10:01 Last Admin: 09/18/16 09:06 Dose: 110 mls/hr Sodium Chloride (Sodium Chloride 0.9%) 1,000 mls @ 999 mls/hr IV .Q1H1M STA Stop: 09/18/16 16:11 Ceftriaxone Sodium (Rocephin 1 Gram Ivpb) 100 mls @ 100 mls/hr IVPB DAILY [facility] PRN Reason: Protocol Isosorbide Mononitrate (Imdur) 30 mg PO DAILY [facility] Last Admin: 09/18/16 09:03 Dose: 30 mg Lorazepam (Ativan) 0.5 mg IVP Q4H PRN; Protocol PRN Reason: Anxiety Last Admin: 09/16/16 22:17 Dose: 0.5 mg Metoprolol Tartrate (Lopressor) 5 mg IVP Q6H PRN PRN Reason: Systolic Blood Pressure Last Admin: 09/18/16 07:18 Dose: 5 mg Morphine Sulfate (Morphine) 2 mg IVP Q4H PRN PRN Reason: Pain, moderate (4-7) Last Admin: 09/14/16 18:29 Dose: 2 mg Multi-Ingredient Cream (Hydrocerin Cream) 1 ea TOP BID PRN PRN Reason: Dry nasal passages Pantoprazole Sodium (Protonix Ec Tab) 40 mg PO ACB [facility] Polyethylene Glycol (Miralax) 17 gm PO DAILY PRN PRN Reason: Constipation Last Admin: 09/15/16 10:33 Dose: 17 gm Sodium Chloride ([place] Nasal [place]) 0 ml NS BID PRN PRN Reason: Nasal congestion - Labs Labs: 09/18/16 06:45 09/18/16 06:45 PT 10.7 Seconds (9.9-11.8) 09/13/16 10:30 INR 0.99 (0.93-1.08) 09/13/16 10:30 APTT 26.4 Seconds (23.7-30.8) 09/13/16 10:30 Attending/Attestation - Attestation I have personally seen and examined this patient.: Yes I have fully participated in the care of the patient.: Yes I have reviewed all pertinent clinical information, including history, physical exam and plan: Yes Notes (Text): I have seen and examined the patient with the resident. Agree with the above note with the following additions/ exceptions: Briefly this is 51 year old female with history of HTN, non compliant with medications at home, sickle cell trait, glaucoma, marijuana use, former alcohol abuser, OTC motrin use for headache on regular basis who presented with hypertensive emergency and found to have dehydration, hyponatremia, hypokalemia, elevated troponin, CHF due to systolic dysfunction (EF 35-40%), acute kidney injury, sepsis secondary to UTI and PRES syndrome. Today patient states that she is very hungry and wants to eat. Denies nausea, vomiting or abdominal pain. She had one BM today. Patient had vomiting and abdominal pain 1 day ago and found to have cholecystitis and ovarian cyst. Pelvic US pending. HIDA is negative for cystic duct obstruction as per surgery team (Official result is pending) therefore no surgical intervention required. Patient will be started on liquid diet. Her LFT's are doubled today most likely due to medication induced. Will discuss with GI and ID. Her BP again very high today. Discussed with linesperson regarding blood transfusion vs NS for suspected pheochromocytoma. Medications were adjusted. Blood culture one bottle was positive for coag negative staph which is most likely due to contamination however dapto x 1 was given. She is getting rocephin for E Coli UTI. Hypokalemia has resolved however hyponatremia persists. Applications Consultant, ID, cardio, neuro, GI and optho on board. Upon discharge patient will follow up with Dr Evita Swann. Dr Patsy Mitchell.
[2016-09-18] MEDS ORDERED: Sodium Chloride 0.9% 1,000 ML IV STA (15:11)
--- NOTE | 2016-09-18 15:18 | CP.PCM.PN ---
Subjective - Date & Time of Evaluation Date of Evaluation: 09/18/16 Time of Evaluation: 10:25 - Subjective Subjective: Comfortable, afebrile, no flank pain, no diarrhea, no dysuria, no nausea, no headache. Objective - Vital Signs/Intake and Output Vital Signs (last 24 hours): Temp Pulse Resp BP Pulse Ox 98.2 F 70 20 196/101 H 100 09/18/16 00:01 09/18/16 07:18 09/18/16 00:01 09/18/16 07:18 09/18/16 00:01 Intake and Output: 09/18/16 09/18/16 06:59 18:59 Output Total 0 Balance 0 - Medications Medications: Current Medications Amlodipine Besylate (Norvasc) 10 mg PO DAILY [facility] Last Admin: 09/17/16 09:01 Dose: 10 mg Aspirin (Ecotrin) 81 mg PO DAILY [facility] Last Admin: 09/17/16 09:01 Dose: 81 mg Atorvastatin Calcium (Lipitor) 20 mg PO DIN [facility] Last Admin: 09/17/16 17:08 Dose: 20 mg Carvedilol (Coreg) 12.5 mg PO BID [facility] Last Admin: 09/17/16 20:00 Dose: Not Given Clonidine HCl (Catapres) 0.3 mg PO TID [facility] Last Admin: 09/17/16 17:09 Dose: 0.3 mg Clonidine HCl (Catapres-Tts3 0.3 Mg/24 Hr) 1 patch TD Q7D@1000 [facility] Docusate Sodium (Colace) 100 mg PO DAILY [facility] Last Admin: 09/17/16 09:01 Dose: 100 mg Famotidine (Pepcid) 20 mg PO DAILY [facility] Last Admin: 09/17/16 09:02 Dose: 20 mg Hydralazine HCl (Apresoline) 50 mg PO TID [facility] Last Admin: 09/17/16 17:08 Dose: 50 mg Ceftriaxone Sodium (Rocephin 1 Gram Ivpb) 100 mls @ 100 mls/hr IVPB DAILY [facility] PRN Reason: Protocol Last Admin: 09/17/16 09:02 Dose: 100 mls/hr Iron Sucrose 200 mg/ Sodium (Chloride) 110 mls @ 110 mls/hr IVPB DAILY [facility] Stop: 09/21/16 10:01 Last Admin: 09/17/16 10:14 Dose: 110 mls/hr Metronidazole (Flagyl) 50 mls @ 100 mls/hr IVPB Q8 ANNA PRN Reason: Protocol Stop: 09/22/16 14:04 Last Admin: 09/18/16 06:23 Dose: 100 mls/hr Dextrose/Sodium Chloride (Dextrose 5%/0.9% Ns 1000 Ml) 1,000 mls @ 125 mls/hr IV .Q8H [facility] Last Admin: 09/17/16 23:10 Dose: 125 mls/hr Isosorbide Mononitrate (Imdur) 30 mg PO DAILY [facility] Last Admin: 09/17/16 09:01 Dose: 30 mg Lorazepam (Ativan) 0.5 mg IVP Q4H PRN; Protocol PRN Reason: Anxiety Last Admin: 09/16/16 22:17 Dose: 0.5 mg Metoprolol Tartrate (Lopressor) 5 mg IVP Q6H PRN PRN Reason: Systolic Blood Pressure Last Admin: 09/18/16 07:18 Dose: 5 mg Morphine Sulfate (Morphine) 2 mg IVP Q4H PRN PRN Reason: Pain, moderate (4-7) Last Admin: 09/14/16 18:29 Dose: 2 mg Multi-Ingredient Cream (Hydrocerin Cream) 1 ea TOP BID PRN PRN Reason: Dry nasal passages Polyethylene Glycol (Miralax) 17 gm PO DAILY PRN PRN Reason: Constipation Last Admin: 09/15/16 10:33 Dose: 17 gm Sodium Chloride ([place] Nasal [place]) 0 ml NS BID PRN PRN Reason: Nasal congestion - Labs Labs: 09/17/16 07:45 09/17/16 06:50 PT 10.7 Seconds (9.9-11.8) 09/13/16 10:30 INR 0.99 (0.93-1.08) 09/13/16 10:30 APTT 26.4 Seconds (23.7-30.8) 09/13/16 10:30 - Constitutional Appears: Non-toxic, No Acute Distress - Head Exam Head Exam: NORMAL INSPECTION - ENT Exam ENT Exam: Mucous Membranes Moist - Neck Exam Neck Exam: absent: Lymphadenopathy, Meningismus - Respiratory Exam Respiratory Exam: Decreased Breath Sounds - Cardiovascular Exam Cardiovascular Exam: +S1, +S2 - GI/Abdominal Exam GI & Abdominal Exam: Soft. absent: Tenderness Assessment and Plan - Assessment and Plan (Free Text) Plan: Assessment Systemic Inflammatory Response Syndrome probably secondary to hypertensive urgency / emergency with associated Posterior Reversible Encephalopathy Syndrome (PRES) and acute renal failure, consider sepsis from urinary tract infection with E. coli; patient is slowly improving Coagulase negative Staph in one blood cx bottle, most likely contamination HTN, poorly-controlled history of glaucoma history of cataracts sickle cell trait S/P Caesarian section obesity with BMI 31 Plan continue Rocephin (day 4) to complete a 5-7 day course Will continue to monitor clinically
[2016-09-18] MEDS: Pantoprazole 40 mg EC Tab PO SCH (16:04)
--- NOTE | 2016-09-18 16:49 | CP.PCM.PN ---
Subjective - Date & Time of Evaluation Date of Evaluation: 09/18/16 Time of Evaluation: 16:00 - Subjective Subjective: [id number] [id number] : 1965 Loc: CCU Room/Bed: [facility] Age/Sex: 51 / F ADM Status: ADM IN ADM Date: DIS Date: Progress note: DATE: 09/18/2016 CHIEF COMPLAINT: F/U for Confusion and abnormal MRI. SUBJECTIVE: Patient examined and bedside, still has mild leg weakness, no confusion. BP is elevated and fluctuates. Has decreased vision out of left eye, but is improving. BP remains uncontrolled. REVIEW OF SYSTEMS: A 14-point review of systems is negative except for the HPI. PAST MEDICAL HISTORY: Significant for hypertension, has not been taking medications for the past 3 years. No history of any prior seizures. MEDICATIONS: Medication that patient has been taking prior to admission were ibuprofen as well as Aleve p.r.n. basis. She was not on any antihypertensive medications the past few years. ALLERGIES: No known drug allergies. SOCIAL HISTORY: Notable for patient drinking at least 3 cans of beer per day. She states that she no longer drinks in the past few days because she was having vomiting. She smokes cigarettes as well as marijuana. Denies any other types of drugs. FAMILY HISTORY: Mother has type 2 diabetes mellitus, hypertension, and end- stage renal disease for which she is on hemodialysis. PHYSICAL EXAMINATION: VITAL SIGNS: Reviewed. GENERAL: The patient is sitting up in bed in no acute distress. HEENT: Atraumatic, normocephalic. PERRLA. Extraocular muscles intact. NECK: Supple, no JVD, no adenopathy noted. LUNGS: Clear to auscultation. No adventitious sounds. HEART: S1, S2, normal rate and rhythm. No murmurs, rubs, or gallops. ABDOMEN: Soft, nontender, nondistended. Bowel sounds present. EXTREMITIES: No clubbing, no cyanosis. Peripheral pulses 2+ felt bilaterally. NEUROLOGIC: The patient is alert, orientated to person, place, month and year. Speech is fluent, without any errors. Cranial nerves II-XII intact. Recall after 5 minutes is 2/3. Has a poor attention span and slow thought process. MOTOR: Normal tone, normal bulk of muscle. Moves all extremities equally. No pronator drift seen. SENSORY: Light touch, pinprick, proprioception, and vibration intact. DTRs are 2+ throughout. COORDINATION: [id number] intact. Toes are upgoing bilaterally. Gait is deferred for now. LABORATORY DATA: Reviewed. ASSESSMENT AND PLAN: This is a 51-year-old woman with known history of hypertension for which she was not taking any antihypertensives for the past 3 years, also daily alcohol and tobacco use as well as marijuana use, was using daily nonsteroidal anti-inflammatory drugs for headaches, who presented for nausea, vomiting, diffuse pressure headaches, chest pain. Noted to have some elevated blood pressures of 300/160 mmHg. Her MRI of the brain showed extensive signal abnormality in the brainstem, basal ganglia bilaterally, particularly the thalamus, suspicious for edema. There is extensive white matter signal abnormality in the cerebral hemispheres bilaterally. Her overall presentation is consistent with posterior reversible encephalopathy syndrome, which is commonly caused by hypertensive emergency/ malignant hypertension. . She also has a left retinal detachment for which she out of the left eye, she is seeing halos. She also has acute kidney injury, likely from hypertension as well as daily nonsteroidal anti-inflammatory drug use. EEG showed bilateral cerebral dysfunction, no evidence of any epileptiform activity At this time, recommend: 1. Hydrate the patient with sodium chloride at 100 mL per hour given acute kidney disease. 2. Keep blood pressure of 120-130 mmHg, that is the target. 3. Aspirin 81 mg p.o. daily for stroke prevention. 4. optho followup to repair the left retinal detachment since she is seeing halos out of the left eye. 5. Follow up with nephrology in regards to her acute kidney injury and continue with current present medical management. 6. We will hold off seizure meds for now since the patient is not having any seizure-like activity. The patient's with posterior reversible encephalopathy syndrome usually reverse in about anywhere from 3-6 months or even it takes up to a year for MRI changes to change. Continue with current present medical management. Thank you Herbert Anne MD Will sign off, reconsult if necessary Objective - Vital Signs/Intake and Output Vital Signs (last 24 hours): Temp Pulse Resp BP Pulse Ox 98.2 F 61 20 172/106 H 100 09/18/16 00:01 09/18/16 15:06 09/18/16 00:01 09/18/16 15:06 09/18/16 00:01 Intake and Output: 09/18/16 09/18/16 06:59 18:59 Intake Total 1300 Output Total 0 Balance 1300 - Medications Medications: Current Medications Amlodipine Besylate (Norvasc) 10 mg PO DAILY [facility] Last Admin: 09/18/16 09:05 Dose: 10 mg Aspirin (Ecotrin) 81 mg PO DAILY [facility] Last Admin: 09/18/16 09:05 Dose: 81 mg Atorvastatin Calcium (Lipitor) 20 mg PO DIN [facility] Last Admin: 09/17/16 17:08 Dose: 20 mg Carvedilol (Coreg) 12.5 mg PO BID [facility] Last Admin: 09/18/16 09:05 Dose: 12.5 mg Clonidine HCl (Catapres) 0.3 mg PO TID [facility] Last Admin: 09/18/16 15:04 Dose: 0.3 mg Docusate Sodium (Colace) 100 mg PO DAILY [facility] Last Admin: 09/18/16 09:05 Dose: 100 mg Hydralazine HCl (Apresoline) 50 mg PO TID [facility] Last Admin: 09/18/16 15:06 Dose: 50 mg Iron Sucrose 200 mg/ Sodium (Chloride) 110 mls @ 110 mls/hr IVPB DAILY [facility] Stop: 09/21/16 10:01 Last Admin: 09/18/16 09:06 Dose: 110 mls/hr Ceftriaxone Sodium (Rocephin 1 Gram Ivpb) 100 mls @ 100 mls/hr IVPB DAILY [facility] PRN Reason: Protocol Isosorbide Mononitrate (Imdur) 30 mg PO DAILY [facility] Last Admin: 09/18/16 09:03 Dose: 30 mg Lorazepam (Ativan) 0.5 mg IVP Q4H PRN; Protocol PRN Reason: Anxiety Last Admin: 09/16/16 22:17 Dose: 0.5 mg Metoprolol Tartrate (Lopressor) 5 mg IVP Q6H PRN PRN Reason: Systolic Blood Pressure Last Admin: 09/18/16 07:18 Dose: 5 mg Morphine Sulfate (Morphine) 2 mg IVP Q4H PRN PRN Reason: Pain, moderate (4-7) Last Admin: 09/14/16 18:29 Dose: 2 mg Multi-Ingredient Cream (Hydrocerin Cream) 1 ea TOP BID PRN PRN Reason: Dry nasal passages Pantoprazole Sodium (Protonix Ec Tab) 40 mg PO ACB [facility] Last Admin: 09/18/16 16:04 Dose: 40 mg Polyethylene Glycol (Miralax) 17 gm PO DAILY PRN PRN Reason: Constipation Last Admin: 09/15/16 10:33 Dose: 17 gm Sodium Chloride ([place] Nasal [place]) 0 ml NS BID PRN PRN Reason: Nasal congestion - Labs Labs: 09/18/16 06:45 09/18/16 06:45 PT 10.7 Seconds (9.9-11.8) 09/13/16 10:30 INR 0.99 (0.93-1.08) 09/13/16 10:30 APTT 26.4 Seconds (23.7-30.8) 09/13/16 10:30
[2016-09-19] MEDS: Morphine 2 mg/ml ISec IVP PRN ×3 (01:03→15:26)
[2016-09-19 06:01] LABS: ADD MANUAL DIFF? NO
[2016-09-19 06:03] LABS: BASO # 0.02 K/mm3 (0.0-2.0); BASO % 0.2 % (0.0-3.0); EOS # 0.1 (0.0-0.7); EOS % 1.1 % (1.5-5.0); GRAN # 7.36 (1.4-6.5); GRAN % 77.5 % (50.0-68.0); HEMATOCRIT 27.8 % (36.0-48.0); LYMPH # 1.1 (1.2-3.4); LYMPH % 11.8 % (22.0-35.0); MEAN CELL VOLUME 84.2 fL (80.0-105.0); MEAN CORPUSCULAR HEMOGLOBIN 30.3 pg (25.0-35.0); MEAN PLATELET VOLUME 11.8 fl (7.0-11.0); MONO # 0.9 (0.1-0.6); MONO % 9.4 % (1.0-6.0); PLATELET COUNT 234 10^3/uL (120.0-450.0); RED CELL DISTRIBUTION WIDTH 16.9 % (11.5-14.5); WHITE BLOOD COUNT 9.5 10^3/ul (4.5-11.0)
[2016-09-19 06:17] LABS: BILIRUBIN,TOTAL 0.7 mg/dL (0.2-1.3); CALCIUM 8.7 mg/dL (8.4-10.5); MAGNESIUM 2.3 mg/dL (1.7-2.2); PHOSPHOROUS 5.7 mg/dL (2.5-4.5); TOTAL PROTEIN 6.4 g/dL (5.8-8.3)
[2016-09-19] MEDS: Pantoprazole 40 mg EC Tab PO SCH (08:23)
[2016-09-19] MEDS: POLYETHYLENE GLYCOL 3350 17 GM/Dose PACKET PO PRN (08:36)
[2016-09-19] MEDS: Metoprolol 1 mg/ml Inj IVP PRN (10:02)
[2016-09-19] MEDS: cefTRIAXone 1 gm 100 ML IVPB SCH (10:08)
--- NOTE | 2016-09-19 10:16 | PN ---
DATE: 09/19/2016 The patient is in bed, in no acute distress, nontoxic. PHYSICAL EXAMINATION: VITAL SIGNS: Temperature is 98, blood pressure is 169/100, respiratory rate 20, heart rate of 55. HEENT: Unremarkable. NECK: Supple. LUNGS: Have decreased breath sounds. HEART: Normal S1, S2. ABDOMEN: Soft. LABORATORY EXAMINATION: Reveals a white count of 9.5, hemoglobin of 10, platelets of 234. Chemistri es reveals BUN of 77, creatinine of 4.2. LFTs are elevated. Urinalysis is noted. Toxicology is not ed. The patient has 1 bottle of coag-negative Staph and the repeat blood cultures are negative. The patient also has an Escherichia coli in the urine. The patient's E. coli is relatively sensitive, i t is resistant to ampicillin. ALLERGIES: The patient has no known allergies. Dr. Herbert Anne's note is reviewed. Dr. Moran's consultation is reviewed. Dr. Moran contributes the liver enzyme elevations secondary to alcoholic liver disease and steatosis on CAT scan. Review of t he orders reveals the patient to be on ceftriaxone. Review of the microbiology is noted. ASSESSMENT AND PLAN: A 51-year-old female who was admitted with sepsis secondary to Escherichia coli in the urine and patient also with posterior reversible encephalopathy syndrome secondary to hyperte nsive emergency on top of acute renal failure, severe sepsis with urinary tract infection as the sour ce, improving, and coag-negative Staph in 1 bottle with repeat blood cultures from the following day are negative in a patient with hypertension, glaucoma, cataracts, sickle cell, cesarian section and o besity, body mass index of 31. Day #5 of ceftriaxone. Would complete 5-7 days. There is no history of surgery for any intravascular devices. The patient has had eye surgery, but no intravascular dev ices have been described in the history, which would make the coag-negative Staph a contamination. R epeat cultures are no growth. Kobe Goyal MD cc: 350 TT: 09/19/2016 10:16:12 Confirmation # [id number] Dictation # [id number]
[2016-09-19] MEDS ORDERED: Sodium Chloride 0.9% 1,000 ML IV STA (10:25)
--- NOTE | 2016-09-19 10:37 | US ---
PROCEDURE: HISTORY: right ovarian cyst, abd pain COMPARISON: TECHNIQUE: FINDINGS: The uterus measures 11.4 x 5.2 x 6.4 centimeters. There is a fundal myoma measuring 2.5 centimeters. The endometrium measures 4 millimeters. The right ovary measures 5.8 by 3.2 x 5.6 centimeters. There is a 4 centimeter simple cyst. The left ovary was not visualized. There is no free fluid the pelvis. IMPRESSION: Fundal leiomyoma. 4 centimeter simple cyst in the right ovary. Recommend followup in 2-3 menstrual cycles.
[2016-09-19] MEDS ORDERED: Nicardipine 20 MG/200 ML 200 ML IV PRN (10:52)
[2016-09-19] MEDS ORDERED: Sodium Chloride 0.9% 500 ML IV STA (10:52)
[2016-09-19] MEDS: Nicardipine 20 MG/200 ML 200 ML IV PRN (11:20)
--- NOTE | 2016-09-19 11:20 | CP.CCUPN ---
<Melinda Ramirez - Last Filed: 09/19/16 11:02> CCU Subjective - Physician Review Events Since Last Encounter (Free Text): 09/19/16 11:03 ASPHALT DAUBER called on telemetry floor for elevated BP, SBP in 250s poorly responsive to clonidine 0.3mg, IV hydralazine. BP still 212/139. Patient seen and examined bedside on telemetry floor. Denies CP, SOB, headache, dizziness, nausea. Had one episode of emesis last night that has not recurred. Admits to 2 day h/o burning-like epigastric abdominal pain, unchanged. Critical Care Time Spent (in minutes): 40 CCU Objective - Vital Signs / Intake & Output Vital Signs (Last 4 hours): Vital Signs Pulse BP 09/19/16 10:47 61 212/139 H 09/19/16 10:05 80 256/146 H 09/19/16 10:04 80 256/146 H 09/19/16 10:02 80 256/146 H Intake and Output (Last 8hrs): Intake & Output 09/18/16 09/19/16 09/19/16 22:59 06:59 14:59 Intake Total 605 240 Output Total 450 0 Balance 155 240 Weight 190 lb 4.8 oz Intake: Oral 480 240 Blood Product 25 0 Red Blood Cells Cp2d As3 25 Lr Unit [id number] Red Blood Cells Cpd As1 0 0 Lr Unit [id number] Other 100 Output: Urine 450 Urine, Voided 450 Stool 0 Urine/Stool Mix 0 Other: # Voids Urine, Voided 1 1 # Bowel Movements 1 0 - Physical Exam Head: Positive for: Atraumatic, Normocephalic Pupils: Positive for: PERRL (No vision left eye) Extroacular Muscles: Positive for: EOMI Conjunctiva: Positive for: Normal Mouth: Positive for: Moist Mucous Membranes Neck: Positive for: Normal Range of Motion Respiratory/Chest: Positive for: Clear to Auscultation, Good Air Exchange, Tender to Palpation (Tenderness to chest wall). Negative for: Respiratory Distress, Accessory Muscle Use Cardiovascular: Positive for: Regular Rate and Rhythm, Normal S1, S2. Negative for: Murmurs Abdomen: Positive for: Normal Bowel Sounds. Negative for: Tenderness, Distention, Peritoneal Signs, Rebound Back: Positive for: Normal Inspection Upper Extremity: Positive for: Normal Inspection. Negative for: Cyanosis, Edema Lower Extremity: Positive for: Normal Inspection, NORMAL PULSES. Negative for: Edema, CALF TENDERNESS Neurological: Positive for: GCS=15, CN II-XII Intact, Speech Normal Skin: Positive for: Warm, Dry, Normal Color. Negative for: Rashes Psychiatric: Positive for: Alert, Oriented x 3, Normal Insight, Normal Concentration - Medications Active Medications: Active Medications Generic Name Dose Route Start Last Admin Trade Name Freq PRN Reason Stop Dose Admin Amlodipine Besylate 10 mg 09/15/16 12:05 09/19/16 10:05 Norvasc PO 10 mg DAILY ANNA Administration Aspirin 81 mg 09/14/16 10:00 09/19/16 10:04 Ecotrin PO 81 mg DAILY ANNA Administration Atorvastatin Calcium 20 mg 09/15/16 17:00 09/17/16 17:08 Lipitor PO 20 mg DIN ANNA Administration Carvedilol 12.5 mg 09/17/16 20:00 09/19/16 10:04 Coreg PO 12.5 mg BID ANNA Administration Clonidine HCl 0.3 mg 09/19/16 14:00 Catapres PO Q8 ANNA Docusate Sodium 100 mg 09/14/16 10:00 09/19/16 10:04 Colace PO 100 mg DAILY ANNA Administration Hydralazine HCl 50 mg 09/16/16 13:46 09/19/16 10:05 Apresoline PO 50 mg TID ANNA Administration Iron Sucrose 200 mg/ Sodium 110 mls @ 110 mls/hr 09/16/16 10:00 09/19/16 10:08 Chloride IVPB 09/21/16 10:01 110 mls/hr DAILY ANNA Administration Ceftriaxone Sodium 100 mls @ 100 mls/hr 09/19/16 10:00 09/19/16 10:08 Rocephin 1 Gram Ivpb IVPB 100 mls/hr DAILY ANNA Administration Protocol Nicardipine HCl 200 mls @ 50 mls/hr 09/19/16 10:52 Cardene Iv Premix IV .Q4H PRN TITRATE PER MD ORDER Protocol 5 MG/HR Sodium Chloride 500 mls @ 999 mls/hr 09/19/16 10:52 Sodium Chloride 0.9% IV 09/19/16 11:22 .Q31M STA Isosorbide Mononitrate 30 mg 09/15/16 10:00 09/19/16 10:04 Imdur PO 30 mg DAILY ANNA Administration Lorazepam 0.5 mg 09/16/16 08:36 09/16/16 22:17 Ativan IVP 0.5 mg Q4H PRN Administration Anxiety Protocol Metoprolol Tartrate 5 mg 09/17/16 12:21 09/19/16 10:02 Lopressor IVP 5 mg Q6H PRN Administration Systolic Blood Pressure Morphine Sulfate 2 mg 09/14/16 07:39 09/19/16 10:26 Morphine IVP 2 mg Q4H PRN Administration Pain, moderate (4-7) Multi-Ingredient Cream 1 ea 09/17/16 11:01 Hydrocerin Cream TOP BID PRN Dry nasal passages Ondansetron HCl 4 mg 09/19/16 03:45 09/19/16 03:52 Zofran Inj IVP 4 mg Q8H PRN Administration Nausea/Vomiting Pantoprazole Sodium 40 mg 09/18/16 12:45 09/19/16 08:23 Protonix Ec Tab PO 40 mg ACB ANNA Administration Polyethylene Glycol 17 gm 09/15/16 08:03 09/19/16 08:36 Miralax PO 17 gm DAILY PRN Administration Constipation Quetiapine Fumarate 12.5 mg 09/20/16 10:00 Seroquel PO DAILY ANNA Protocol Sodium Chloride 0 ml 09/17/16 11:02 Fajardo Nasal [place] NS BID PRN Nasal congestion - Patient Studies Lab Studies: Microbiology Studies 09/14/16 04:09 Blood Culture - Final Blood NO GROWTH AFTER 5 DAYS Gram Stain - Final TEST NOT PERFORMED 09/15/16 19:20 Blood Culture - Preliminary Blood-Venous NO GROWTH AFTER 3 DAYS 09/15/16 19:00 Blood Culture - Preliminary Blood-Venous NO GROWTH AFTER 3 DAYS Lab Studies 09/19/16 09/18/16 09/18/16 Range/Units 05:59 15:20 14:45 WBC 9.5 (4.5-11.0) 10^3/ul RBC 3.30 L (3.5-6.1) 10^6/uL Hgb 10.0 L (12.0-16.0) gm/dL Hct 27.8 L (36.0-48.0) % MCV 84.2 (80.0-105.0) fL MCH 30.3 (25.0-35.0) pg MCHC 36.0 (31.0-37.0) g/dl RDW 16.9 H (11.5-14.5) % Plt Count 234 (120.0-450.0) 10^3/uL MPV 11.8 H (7.0-11.0) fl Gran % 77.5 H (50.0-68.0) % Lymph % (Auto) 11.8 L (22.0-35.0) % [place] % (Auto) 9.4 H (1.0-6.0) % Eos % (Auto) 1.1 L (1.5-5.0) % Baso % (Auto) 0.2 (0.0-3.0) % Gran # 7.36 H (1.4-6.5) Lymph # 1.1 L (1.2-3.4) [place] # 0.9 H (0.1-0.6) Eos # 0.1 (0.0-0.7) Baso # 0.02 (0.0-2.0) K/mm3 Sodium 130 L (132-148) mmol/L Potassium 4.0 (3.6-5.0) mmol/L Chloride 99 (98-107) mmol/L Carbon Dioxide 20 L (21-33) mmol/L Anion Gap 15 (10-20) BUN 77 H (7-21) mg/dL Creatinine 4.2 H (0.5-1.4) mg/dL Est GFR ( Amer) 14 Est GFR (Non-Af Amer) 11 Random Glucose 99 (70-110) mg/dL Calcium 8.7 (8.4-10.5) mg/dL Phosphorus 5.7 H (2.5-4.5) mg/dL Magnesium 2.3 H (1.7-2.2) mg/dL Total Bilirubin 0.7 (0.2-1.3) mg/dL AST 146 H (15-39) U/L ALT 296 H (7-56) U/L Alkaline Phosphatase 387 H (38-133) U/L Total Protein 6.4 (5.8-8.3) g/dL Albumin 3.2 (3.0-4.8) g/dL Globulin 3.2 gm/dL Albumin/Globulin Ratio 1.0 L (1.1-1.8) Ur Random Sodium meq/L Blood Type A POSITIVE Blood Type Confirm A POSITIVE Antibody Screen Negative Crossmatch See Detail BBK History Checked No verified bt 09/18/16 Range/Units 13:30 WBC (4.5-11.0) 10^3/ul RBC (3.5-6.1) 10^6/uL Hgb (12.0-16.0) gm/dL Hct (36.0-48.0) % MCV (80.0-105.0) fL MCH (25.0-35.0) pg MCHC (31.0-37.0) g/dl RDW (11.5-14.5) % Plt Count (120.0-450.0) 10^3/uL MPV (7.0-11.0) fl Gran % (50.0-68.0) % Lymph % (Auto) (22.0-35.0) % [place] % (Auto) (1.0-6.0) % Eos % (Auto) (1.5-5.0) % Baso % (Auto) (0.0-3.0) % Gran # (1.4-6.5) Lymph # (1.2-3.4) [place] # (0.1-0.6) Eos # (0.0-0.7) Baso # (0.0-2.0) K/mm3 Sodium (132-148) mmol/L Potassium (3.6-5.0) mmol/L Chloride (98-107) mmol/L Carbon Dioxide (21-33) mmol/L Anion Gap (10-20) BUN (7-21) mg/dL Creatinine (0.5-1.4) mg/dL Est GFR ( Amer) Est GFR (Non-Af Amer) Random Glucose (70-110) mg/dL Calcium (8.4-10.5) mg/dL Phosphorus (2.5-4.5) mg/dL Magnesium (1.7-2.2) mg/dL Total Bilirubin (0.2-1.3) mg/dL AST (15-39) U/L ALT (7-56) U/L Alkaline Phosphatase (38-133) U/L Total Protein (5.8-8.3) g/dL Albumin (3.0-4.8) g/dL Globulin gm/dL Albumin/Globulin Ratio (1.1-1.8) Ur Random Sodium < 5 meq/L Blood Type Blood Type Confirm Antibody Screen Crossmatch BBK History Checked Laboratory Results - last 24 hr 09/18/16 09/18/16 09/18/16 13:30 14:45 15:20 WBC RBC Hgb Hct MCV MCH MCHC RDW Plt Count MPV Gran % Lymph % (Auto) [place] % (Auto) Eos % (Auto) Baso % (Auto) Gran # Lymph # [place] # Eos # Baso # Sodium Potassium Chloride Carbon Dioxide Anion Gap BUN Creatinine Est GFR ( Amer) Est GFR (Non-Af Amer) Random Glucose Calcium Phosphorus Magnesium Total Bilirubin AST ALT Alkaline Phosphatase Total Protein Albumin Globulin Albumin/Globulin Ratio Ur Random Sodium < 5 Blood Type A POSITIVE Blood Type Confirm A POSITIVE Antibody Screen Negative Crossmatch See Detail BBK History Checked No verified bt 09/19/16 05:59 WBC 9.5 RBC 3.30 L Hgb 10.0 L Hct 27.8 L MCV 84.2 MCH 30.3 MCHC 36.0 RDW 16.9 H Plt Count 234 MPV 11.8 H Gran % 77.5 H Lymph % (Auto) 11.8 L [place] % (Auto) 9.4 H Eos % (Auto) 1.1 L Baso % (Auto) 0.2 Gran # 7.36 H Lymph # 1.1 L [place] # 0.9 H Eos # 0.1 Baso # 0.02 Sodium 130 L Potassium 4.0 Chloride 99 Carbon Dioxide 20 L Anion Gap 15 BUN 77 H Creatinine 4.2 H Est GFR ( Amer) 14 Est GFR (Non-Af Amer) 11 Random Glucose 99 Calcium 8.7 Phosphorus 5.7 H Magnesium 2.3 H Total Bilirubin 0.7 AST 146 H ALT 296 H Alkaline Phosphatase 387 H Total Protein 6.4 Albumin 3.2 Globulin 3.2 Albumin/Globulin Ratio 1.0 L Ur Random Sodium Blood Type Blood Type Confirm Antibody Screen Crossmatch BBK History Checked EKG/Cardiology Studies: Cardiology / EKG Studies 09/19/16 10:22 EKG [ELECTROCARDIOGRAM] Stat Comment: Reason For Exam: chest discomfort Review of Systems - Constitutional Constitutional: absent: Fever, Chills - EENT Eyes: absent: Change in Vision Ears: absent: Dizziness Nose/Mouth/Throat: Epistaxis (x 1 yesterday) - Cardiovascular Cardiovascular: absent: Chest Pain, Dyspnea, Palpitations - Respiratory Respiratory: absent: Cough, Dyspnea, Pain on Inspiration - Gastrointestinal Gastrointestinal: Abdominal Pain (epigastric). absent: Nausea, Vomiting (x 1 yesterday, none today) - Genitourinary Genitourinary: absent: Dysuria, Flank Pain - Integumentary Integumentary: absent: New Lesions - Neurological Neurological: absent: Headaches Critical Care Progress Note - Nutrition Nutrition: Nutrition Category Date Time Status Heart Healthy Diet [DIET] Diets 09/18/16 Breakfast Ordered Assessment/Plan - Assessment and Plan (Free Text) Assessment: 51 yo F w h/o uncontrolled HTN admitted to ICU with hypertensive emergency, PRES syndrome, cardiomyopathy, ESTEFANI, vitreous hemorrhage, left retinal detachment now back to ICU for elevated BP again poorly responsive to Hydralazine and clonidine, will be placed on Cardene drip. Plan: Neuro: AAOx3, NAD MRI head shows extensive brainstem, basal ganglia and thalamic edema, no acute infarct or hemorrhage. Will take 3-6 months to see changes on MRI given current PRES syndrome Maintain normothermia EEG showed diffuse slowing c/w BL cerebral dysfunction, no epileptiform activity Will need optho followup when stable for retinal detachment CV: Hypertensive emergency, current SBP 212. Start Cardene drip Continue Norvasc 10mg PO QDay, Coreg 12.5mg PO TID, Clonidine 0.3mg PO Q8hr, Hydralazine 50mg pO TID, Imdur 30mg PO Qday, Lopressor 5mg IV Q6hr PRN. Cardene drip Continue ASA for stroke prevention No renal artery stenosis seen on Duplex. Medical renal Disease BL kidneys Pheochromocytoma suspected. Elevated metanephrines. Confirmatory workup pending Maintain MAP >65 Pulm: No acute issues, able to protect airway. Comfortable and saturating in high 90s-100% on room air Maintain spo2>90 GI/: Pelvic US shows fundal leiomyoma, 4cm right ovarian cyst GI ppx Miralax Qday ORN constipation Renal: ESTEFANI stable, not improving Remove taylor. Continue monitoring renal function Hypokalemia resolved Endo: No acute issues A1C 4.2 Maintain euglycemia 140-180 ID: No Leukocytosis, afebrile. On Rocephin for E coli UTI as per ID 09/14 blood cultures show coagulase negative Staph aureus - Repeat blood cultures negative Heme: Iron deficiency anemia. Continue venofer s/p 2units pRBC transfusion for hB 7.9 yesterday. Hb 10.0 today DVT/GI ppx: SCDs, Protonix, HHD - Date & Time Date: 09/19/16 Time: 11:22 <Rafi Myers - Last Filed: 09/19/16 14:19> CCU Objective - Vital Signs / Intake & Output Vital Signs (Last 4 hours): Vital Signs Pulse Resp BP Pulse Ox 09/19/16 12:00 61 20 157/86 H 95 09/19/16 11:48 64 23 159/90 H 98 09/19/16 11:28 190/95 H 09/19/16 11:05 63 09/19/16 11:00 62 09/19/16 10:47 61 212/139 H Intake and Output (Last 8hrs): Intake & Output 09/18/16 09/19/16 09/19/16 22:59 06:59 14:59 Intake Total 605 240 Output Total 450 0 Balance 155 240 Weight 190 lb 4.8 oz Intake: Oral 480 240 Blood Product 25 0 Red Blood Cells Cp2d As3 25 Lr Unit [id number] Red Blood Cells Cpd As1 0 0 Lr Unit [id number] Other 100 Output: Urine 450 Urine, Voided 450 Stool 0 Urine/Stool Mix 0 Other: # Voids Urine, Voided 1 1 # Bowel Movements 1 0 - Medications Active Medications: Active Medications Generic Name Dose Route Start Last Admin Trade Name Freq PRN Reason Stop Dose Admin Amlodipine Besylate 10 mg 09/15/16 12:05 09/19/16 10:05 Norvasc PO 10 mg DAILY ANNA Administration Aspirin 81 mg 09/14/16 10:00 09/19/16 10:04 Ecotrin PO 81 mg DAILY ANNA Administration Atorvastatin Calcium 20 mg 09/15/16 17:00 09/17/16 17:08 Lipitor PO 20 mg DIN ANNA Administration Carvedilol 12.5 mg 09/17/16 20:00 09/19/16 10:04 Coreg PO 12.5 mg BID ANNA Administration Clonidine HCl 0.3 mg 09/19/16 14:00 Catapres PO Q8 ANNA Docusate Sodium 100 mg 09/14/16 10:00 09/19/16 10:04 Colace PO 100 mg DAILY ANNA Administration Hydralazine HCl 50 mg 09/19/16 14:00 Apresoline PO Q8 ANNA Iron Sucrose 200 mg/ Sodium 110 mls @ 110 mls/hr 09/16/16 10:00 09/19/16 10:08 Chloride IVPB 09/21/16 10:01 110 mls/hr DAILY ANNA Administration Ceftriaxone Sodium 100 mls @ 100 mls/hr 09/19/16 10:00 09/19/16 10:08 Rocephin 1 Gram Ivpb IVPB 100 mls/hr DAILY ANNA Administration Protocol Nicardipine HCl 200 mls @ 50 mls/hr 09/19/16 10:52 09/19/16 12:00 Cardene Iv Premix IV 5 mg/hr .Q4H PRN Titration TITRATE PER MD ORDER Protocol 5 MG/HR Isosorbide Mononitrate 30 mg 09/15/16 10:00 09/19/16 10:04 Imdur PO 30 mg DAILY ANNA Administration Lorazepam 0.5 mg 09/16/16 08:36 09/16/16 22:17 Ativan IVP 0.5 mg Q4H PRN Administration Anxiety Protocol Metoprolol Tartrate 5 mg 09/17/16 12:21 09/19/16 10:02 Lopressor IVP 5 mg Q6H PRN Administration Systolic Blood Pressure Morphine Sulfate 2 mg 09/14/16 07:39 09/19/16 10:26 Morphine IVP 2 mg Q4H PRN Administration Pain, moderate (4-7) Multi-Ingredient Cream 1 ea 09/17/16 11:01 Hydrocerin Cream TOP BID PRN Dry nasal passages Ondansetron HCl 4 mg 09/19/16 03:45 09/19/16 03:52 Zofran Inj IVP 4 mg Q8H PRN Administration Nausea/Vomiting Pantoprazole Sodium 40 mg 09/18/16 12:45 09/19/16 08:23 Protonix Ec Tab PO 40 mg ACB ANNA Administration Polyethylene Glycol 17 gm 09/15/16 08:03 09/19/16 08:36 Miralax PO 17 gm DAILY PRN Administration Constipation Sodium Chloride 0 ml 09/19/16 12:30 Fajardo Nasal [place] NS BID ANNA - Patient Studies Lab Studies: Microbiology Studies 09/14/16 04:09 Blood Culture - Final Blood NO GROWTH AFTER 5 DAYS Gram Stain - Final TEST NOT PERFORMED 09/15/16 19:20 Blood Culture - Preliminary Blood-Venous NO GROWTH AFTER 3 DAYS 09/15/16 19:00 Blood Culture - Preliminary Blood-Venous NO GROWTH AFTER 3 DAYS Lab Studies 09/19/16 09/19/16 09/18/16 Range/Units 11:50 05:59 15:20 WBC 9.5 (4.5-11.0) 10^3/ul RBC 3.30 L (3.5-6.1) 10^6/uL Hgb 10.0 L (12.0-16.0) gm/dL Hct 27.8 L (36.0-48.0) % MCV 84.2 (80.0-105.0) fL MCH 30.3 (25.0-35.0) pg MCHC 36.0 (31.0-37.0) g/dl RDW 16.9 H (11.5-14.5) % Plt Count 234 (120.0-450.0) 10^3/uL MPV 11.8 H (7.0-11.0) fl Gran % 77.5 H (50.0-68.0) % Lymph % (Auto) 11.8 L (22.0-35.0) % [place] % (Auto) 9.4 H (1.0-6.0) % Eos % (Auto) 1.1 L (1.5-5.0) % Baso % (Auto) 0.2 (0.0-3.0) % Gran # 7.36 H (1.4-6.5) Lymph # 1.1 L (1.2-3.4) [place] # 0.9 H (0.1-0.6) Eos # 0.1 (0.0-0.7) Baso # 0.02 (0.0-2.0) K/mm3 PT 11.7 (9.9-11.8) Seconds INR 1.08 (0.93-1.08) Sodium 130 L (132-148) mmol/L Potassium 4.0 (3.6-5.0) mmol/L Chloride 99 (98-107) mmol/L Carbon Dioxide 20 L (21-33) mmol/L Anion Gap 15 (10-20) BUN 77 H (7-21) mg/dL Creatinine 4.2 H (0.5-1.4) mg/dL Est GFR ( Amer) 14 Est GFR (Non-Af Amer) 11 Random Glucose 99 (70-110) mg/dL Calcium 8.7 (8.4-10.5) mg/dL Phosphorus 5.7 H (2.5-4.5) mg/dL Magnesium 2.3 H (1.7-2.2) mg/dL Total Bilirubin 0.7 (0.2-1.3) mg/dL AST 146 H (15-39) U/L ALT 296 H (7-56) U/L Alkaline Phosphatase 387 H (38-133) U/L Troponin I 0.54 H* D ng/mL Total Protein 6.4 (5.8-8.3) g/dL Albumin 3.2 (3.0-4.8) g/dL Globulin 3.2 gm/dL Albumin/Globulin Ratio 1.0 L (1.1-1.8) Ur Random Sodium meq/L Blood Type Blood Type Confirm A POSITIVE Antibody Screen Crossmatch BBK History Checked 09/18/16 09/18/16 Range/Units 14:45 13:30 WBC (4.5-11.0) 10^3/ul RBC (3.5-6.1) 10^6/uL Hgb (12.0-16.0) gm/dL Hct (36.0-48.0) % MCV (80.0-105.0) fL MCH (25.0-35.0) pg MCHC (31.0-37.0) g/dl RDW (11.5-14.5) % Plt Count (120.0-450.0) 10^3/uL MPV (7.0-11.0) fl Gran % (50.0-68.0) % Lymph % (Auto) (22.0-35.0) % [place] % (Auto) (1.0-6.0) % Eos % (Auto) (1.5-5.0) % Baso % (Auto) (0.0-3.0) % Gran # (1.4-6.5) Lymph # (1.2-3.4) [place] # (0.1-0.6) Eos # (0.0-0.7) Baso # (0.0-2.0) K/mm3 PT (9.9-11.8) Seconds INR (0.93-1.08) Sodium (132-148) mmol/L Potassium (3.6-5.0) mmol/L Chloride (98-107) mmol/L Carbon Dioxide (21-33) mmol/L Anion Gap (10-20) BUN (7-21) mg/dL Creatinine (0.5-1.4) mg/dL Est GFR ( Amer) Est GFR (Non-Af Amer) Random Glucose (70-110) mg/dL Calcium (8.4-10.5) mg/dL Phosphorus (2.5-4.5) mg/dL Magnesium (1.7-2.2) mg/dL Total Bilirubin (0.2-1.3) mg/dL AST (15-39) U/L ALT (7-56) U/L Alkaline Phosphatase (38-133) U/L Troponin I ng/mL Total Protein (5.8-8.3) g/dL Albumin (3.0-4.8) g/dL Globulin gm/dL Albumin/Globulin Ratio (1.1-1.8) Ur Random Sodium < 5 meq/L Blood Type A POSITIVE Blood Type Confirm Antibody Screen Negative Crossmatch See Detail BBK History Checked No verified bt Laboratory Results - last 24 hr 09/18/16 09/18/16 09/18/16 13:30 14:45 15:20 WBC RBC Hgb Hct MCV MCH MCHC RDW Plt Count MPV Gran % Lymph % (Auto) [place] % (Auto) Eos % (Auto) Baso % (Auto) Gran # Lymph # [place] # Eos # Baso # PT INR Sodium Potassium Chloride Carbon Dioxide Anion Gap BUN Creatinine Est GFR ( Amer) Est GFR (Non-Af Amer) Random Glucose Calcium Phosphorus Magnesium Total Bilirubin AST ALT Alkaline Phosphatase Troponin I Total Protein Albumin Globulin Albumin/Globulin Ratio Ur Random Sodium < 5 Blood Type A POSITIVE Blood Type Confirm A POSITIVE Antibody Screen Negative Crossmatch See Detail BBK History Checked No verified bt 09/19/16 09/19/16 05:59 11:50 WBC 9.5 RBC 3.30 L Hgb 10.0 L Hct 27.8 L MCV 84.2 MCH 30.3 MCHC 36.0 RDW 16.9 H Plt Count 234 MPV 11.8 H Gran % 77.5 H Lymph % (Auto) 11.8 L [place] % (Auto) 9.4 H Eos % (Auto) 1.1 L Baso % (Auto) 0.2 Gran # 7.36 H Lymph # 1.1 L [place] # 0.9 H Eos # 0.1 Baso # 0.02 PT 11.7 INR 1.08 Sodium 130 L Potassium 4.0 Chloride 99 Carbon Dioxide 20 L Anion Gap 15 BUN 77 H Creatinine 4.2 H Est GFR ( Amer) 14 Est GFR (Non-Af Amer) 11 Random Glucose 99 Calcium 8.7 Phosphorus 5.7 H Magnesium 2.3 H Total Bilirubin 0.7 AST 146 H ALT 296 H Alkaline Phosphatase 387 H Troponin I 0.54 H* D Total Protein 6.4 Albumin 3.2 Globulin 3.2 Albumin/Globulin Ratio 1.0 L Ur Random Sodium Blood Type Blood Type Confirm Antibody Screen Crossmatch BBK History Checked EKG/Cardiology Studies: Cardiology / EKG Studies 09/19/16 10:22 EKG [ELECTROCARDIOGRAM] Stat Comment: Reason For Exam: chest discomfort Critical Care Progress Note - Nutrition Nutrition: Nutrition Category Date Time Status Heart Healthy Diet [DIET] Diets 09/18/16 Breakfast Ordered Addendum Addendum: 09/19/16 14:19 patient was seen and examined at bedside with dr. Ramirez. Please see Dr. Myers note
--- NOTE | 2016-09-19 11:56 | CP.PCM.PN ---
<RamseyLuciano - Last Filed: 09/19/16 12:09> Subjective - Date & Time of Evaluation Date of Evaluation: 09/19/16 Time of Evaluation: 09:15 - Subjective Subjective: PGY-1 Medicine Progress Note for Dr. Mitchell Patient seen and examined at bedside. No acute event overnight. Patient resting in bed comfortably. Patient complaining of abdominal pain, epitaxis and hemoptysis. Patient's BP was elevated 227/137, OIL WELL SERVICES DISPATCHER was called. Patient was then transferred to ICU and started on Nicardipine drip. Denied fever/chills, cp, sob , palpitations, n/v/d, incontinence, numbness/tingling. Objective - Vital Signs/Intake and Output Vital Signs (last 24 hours): Temp Pulse Resp BP Pulse Ox 98.6 F 61 20 212/139 H 100 09/19/16 05:28 09/19/16 10:47 09/19/16 05:28 09/19/16 10:47 09/19/16 05:28 Intake and Output: 09/19/16 09/19/16 06:59 18:59 Intake Total 265 Output Total 0 Balance 265 - Medications Medications: Current Medications Amlodipine Besylate (Norvasc) 10 mg PO DAILY [facility] Last Admin: 09/19/16 10:05 Dose: 10 mg Aspirin (Ecotrin) 81 mg PO DAILY [facility] Last Admin: 09/19/16 10:04 Dose: 81 mg Atorvastatin Calcium (Lipitor) 20 mg PO DIN [facility] Last Admin: 09/17/16 17:08 Dose: 20 mg Carvedilol (Coreg) 12.5 mg PO BID [facility] Last Admin: 09/19/16 10:04 Dose: 12.5 mg Clonidine HCl (Catapres) 0.3 mg PO Q8 [facility] Docusate Sodium (Colace) 100 mg PO DAILY [facility] Last Admin: 09/19/16 10:04 Dose: 100 mg Hydralazine HCl (Apresoline) 50 mg PO TID [facility] Last Admin: 09/19/16 10:05 Dose: 50 mg Iron Sucrose 200 mg/ Sodium (Chloride) 110 mls @ 110 mls/hr IVPB DAILY [facility] Stop: 09/21/16 10:01 Last Admin: 09/19/16 10:08 Dose: 110 mls/hr Ceftriaxone Sodium (Rocephin 1 Gram Ivpb) 100 mls @ 100 mls/hr IVPB DAILY [facility] PRN Reason: Protocol Last Admin: 09/19/16 10:08 Dose: 100 mls/hr Nicardipine HCl (Cardene Iv Premix) 200 mls @ 50 mls/hr IV .Q4H PRN; Protocol; 5 MG/HR PRN Reason: TITRATE PER MD ORDER Isosorbide Mononitrate (Imdur) 30 mg PO DAILY [facility] Last Admin: 09/19/16 10:04 Dose: 30 mg Lorazepam (Ativan) 0.5 mg IVP Q4H PRN; Protocol PRN Reason: Anxiety Last Admin: 09/16/16 22:17 Dose: 0.5 mg Metoprolol Tartrate (Lopressor) 5 mg IVP Q6H PRN PRN Reason: Systolic Blood Pressure Last Admin: 09/19/16 10:02 Dose: 5 mg Morphine Sulfate (Morphine) 2 mg IVP Q4H PRN PRN Reason: Pain, moderate (4-7) Last Admin: 09/19/16 10:26 Dose: 2 mg Multi-Ingredient Cream (Hydrocerin Cream) 1 ea TOP BID PRN PRN Reason: Dry nasal passages Ondansetron HCl (Zofran Inj) 4 mg IVP Q8H PRN PRN Reason: Nausea/Vomiting Last Admin: 09/19/16 03:52 Dose: 4 mg Pantoprazole Sodium (Protonix Ec Tab) 40 mg PO ACB [facility] Last Admin: 09/19/16 08:23 Dose: 40 mg Polyethylene Glycol (Miralax) 17 gm PO DAILY PRN PRN Reason: Constipation Last Admin: 09/19/16 08:36 Dose: 17 gm Quetiapine Fumarate (Seroquel) 12.5 mg PO DAILY [facility] PRN Reason: Protocol Sodium Chloride ([place] Nasal [place]) 0 ml NS BID PRN PRN Reason: Nasal congestion - Labs Labs: 09/19/16 05:59 09/19/16 05:59 PT 10.7 Seconds (9.9-11.8) 09/13/16 10:30 INR 0.99 (0.93-1.08) 09/13/16 10:30 APTT 26.4 Seconds (23.7-30.8) 09/13/16 10:30 - Constitutional Appears: In Acute Distress - Head Exam Head Exam: ATRAUMATIC, NORMOCEPHALIC - Eye Exam Eye Exam: EOMI, Normal appearance Pupil Exam: PERRL - ENT Exam ENT Exam: Mucous Membranes Moist - Neck Exam Neck Exam: Normal Inspection - Respiratory Exam Respiratory Exam: Clear to Ausculation Bilateral, NORMAL BREATHING PATTERN - Cardiovascular Exam Cardiovascular Exam: REGULAR RHYTHM, +S1, +S2 - GI/Abdominal Exam GI & Abdominal Exam: Soft, Tenderness (epigastric), Normal Bowel Sounds - Extremities Exam Extremities Exam: Normal Capillary Refill - Back Exam Back Exam: absent: CVA tenderness (L), CVA tenderness (R) - Neurological Exam Neurological Exam: Alert, Awake, CN II-XII Intact, Oriented x3 - Psychiatric Exam Psychiatric exam: Anxious - Skin Skin Exam: Dry, Intact, Normal Color, Warm Assessment and Plan - Assessment and Plan (Free Text) Plan: 51 F with history of HTN, non compliant with medications at home, sickle cell trait, glaucoma, marijuana use, former alcohol abuser who presented with hypertensive emergency and found to have dehydration, hyponatremia, hypokalemia , elevated troponin, CHF due to systolic dysfunction (EF 35-40%), acute kidney injury, sepsis secondary to UTI and PRES syndrome. 1. Hypertensive Emergency Transferred to ICU and started on Nicardipine drip due to malignant HTN ECHO: LV normal size, mild concentric LVH, mild-mod impaired systolic function EF35-40, mild-mod hypokinesis apical anterior wall, mild mitral regurg, trace aortic regurg, mild tricuspid regurg Renal US: Medical renal disease, 1.6 cm simple cyst on upper pole of r kidney ( see full report). MRI Brain: extensice signal abnormality in brainstem and basal ganglia bilaterally, particularly thalami, suspicious for edema. Extensive white matter signal abnormality in cerebral hemispheresbilaterally. Uncertain etiology, could be hypertensive/infectious/inflammatory encephalopathy extensivve demyelinating disease, toxic insult, or underlying metabolic abnormality (see full report). CT head: extensive hypodensity in the perventricular white matter, sheyla, and cerebellar white matter. Could represent vasogenic edema related to HTN or chronic microvascular disease (see full report). CT chest: mild cardiomegaly, very mild emphysematous changes in lung apices bilaterally (see full report). CT abd/pelvos: Right ovarian cyst (see full report). Carotid duplex: bilateral 20-39% stenoses of proximal ICA, antegrade flow in both vertebral arteries (see full report). ASA 81 mg PO daily Norvasc 10 mg PO daily Coreg 6.25 PO BID Hydralazine 25 mg PO TID Clonidine 0.1 mg PO Q4H PRN Isosorbide Mononitrate 30 mg PO daily Nicardipine drip Nephro consult, Dr. Mcgarry, help appreciated Opthlamology consult, Dr. Bae, help appreciated Cardio consult, Dr. Carson, help appreciated Cardiac enzymes 0.20-->0.28-->1.98-->1.43-->2.43-->2.24 Urine metanephrines elevated, suspicious for Pheochromocytoma, needs confirmatory test f/u daily labs Heart healthy diet 2. Chest Pain ECHO: LV normal size, mild concentric LVH, mild-mod impaired systolic function EF35-40, mild-mod hypokinesis apical anterior wall, mild mitral regurg, trace aortic regurg, mild tricuspid regurg Carotid duplex: bilateral 20-39% stenoses of proximal ICA, antegrade flow in both vertebral arteries (see full report). ASA 81 mg PO daily Norvasc 10 mg PO daily Coreg 6.25 PO BID Hydralazine 25 mg PO TID Clonidine 0.1 mg PO Q4H PRN Isosorbide Mononitrate 30 mg PO daily Nicardipine drip Lipitor 20 mg PO HS Nephro consult, Dr. Mcgarry, help appreciated Opthlamology consult, Dr. Bae, help appreciated Cardio consult, Dr. Carson, help appreciated Cardiac enzymes 0.20-->0.28-->1.98-->1.43-->2.43-->2.24 f/u daily labs BNP 40331 3. ESTEFANI Bun/Cr: 77/4.2 Renal US: Medical renal disease, 1.6 cm simple cyst on upper pole of r kidney ( see full report). Nephrology consult, Dr. Rosen, help appreciated Urine metanephrines elevated, suspicious for Pheochromocytoma, needs confirmatory test 4. Dyspnea ECHO: LV normal size, mild concentric LVH, mild-mod impaired systolic function EF35-40, mild-mod hypokinesis apical anterior wall, mild mitral regurg, trace aortic regurg, mild tricuspid regurg Carotid duplex: bilateral 20-39% stenoses of proximal ICA, antegrade flow in both vertebral arteries (see full report). ASA 81 mg PO daily Norvasc 5 mg PO daily Nicardipine drip Nephro consult, Dr. Mcgarry, help appreciated Opthlamology consult, Dr. Bae, help appreciated Cardio consult, Dr. Carson, help appreciated Cardiac enzymes 0.20-->0.28-->1.98-->1.43-->2.43-->2.24 f/u daily labs BNP [id number] abd/pelvis revealed 3.5 x 5 cm R ovarian cyst CARDROOM SUPERVISOR consult, Dr. Meeks, help appreciated 6. Anemia Iron sucrose 200 mg IVPB daily transferred 2 units PRBC yesterday 7. Glaucoma Tropicamide 1% 1 drop OU 8. Epitaxis Hydrocerin cream PRN [place] nasal spray PRN 9. Abnormal LFTs GI consult, Dr. Moran, help appreciated Surgery consulted, Dr. Zamarripa, help appreciated Abdominal US: fatty infilatration of the liver, gallbladder sludge without cholelithiasis, nonspecific thickening of gallbladder wall [see full report] HIDA scan: F/U official read 10. UTI UA showed blood and elevated leukocyte esterase Urine culture grew E. Coli Rocephin 1 gm IVPB daily 11. Prophylactic measures Pepcid 20 mg PO daily Colace 100 mg PO daily Miralax 17 gm PO daily PRN <Patsy Micthell B - Last Filed: 09/19/16 14:33> Objective - Vital Signs/Intake and Output Vital Signs (last 24 hours): Temp Pulse Resp BP Pulse Ox 98.6 F 61 20 157/86 H 95 09/19/16 05:28 09/19/16 12:00 09/19/16 12:00 09/19/16 12:00 09/19/16 12:00 Intake and Output: 09/19/16 09/19/16 06:59 18:59 Intake Total 265 Output Total 0 Balance 265 - Medications Medications: Current Medications Amlodipine Besylate (Norvasc) 10 mg PO DAILY [facility] Last Admin: 09/19/16 10:05 Dose: 10 mg Aspirin (Ecotrin) 81 mg PO DAILY [facility] Last Admin: 09/19/16 10:04 Dose: 81 mg Atorvastatin Calcium (Lipitor) 20 mg PO DIN [facility] Last Admin: 09/17/16 17:08 Dose: 20 mg Carvedilol (Coreg) 12.5 mg PO BID [facility] Last Admin: 09/19/16 10:04 Dose: 12.5 mg Clonidine HCl (Catapres) 0.3 mg PO Q8 [facility] Docusate Sodium (Colace) 100 mg PO DAILY [facility] Last Admin: 09/19/16 10:04 Dose: 100 mg Hydralazine HCl (Apresoline) 50 mg PO Q8 [facility] Iron Sucrose 200 mg/ Sodium (Chloride) 110 mls @ 110 mls/hr IVPB DAILY [facility] Stop: 09/21/16 10:01 Last Admin: 09/19/16 10:08 Dose: 110 mls/hr Ceftriaxone Sodium (Rocephin 1 Gram Ivpb) 100 mls @ 100 mls/hr IVPB DAILY [facility] PRN Reason: Protocol Last Admin: 09/19/16 10:08 Dose: 100 mls/hr Nicardipine HCl (Cardene Iv Premix) 200 mls @ 50 mls/hr IV .Q4H PRN; Protocol; 5 MG/HR PRN Reason: TITRATE PER MD ORDER Last Titration: 09/19/16 12:00 Dose: 5 mg/hr Isosorbide Mononitrate (Imdur) 30 mg PO DAILY [facility] Last Admin: 09/19/16 10:04 Dose: 30 mg Lorazepam (Ativan) 0.5 mg IVP Q4H PRN; Protocol PRN Reason: Anxiety Last Admin: 09/16/16 22:17 Dose: 0.5 mg Metoprolol Tartrate (Lopressor) 5 mg IVP Q6H PRN PRN Reason: Systolic Blood Pressure Last Admin: 09/19/16 10:02 Dose: 5 mg Morphine Sulfate (Morphine) 2 mg IVP Q4H PRN PRN Reason: Pain, moderate (4-7) Last Admin: 09/19/16 10:26 Dose: 2 mg Multi-Ingredient Cream (Hydrocerin Cream) 1 ea TOP BID PRN PRN Reason: Dry nasal passages Ondansetron HCl (Zofran Inj) 4 mg IVP Q8H PRN PRN Reason: Nausea/Vomiting Last Admin: 09/19/16 03:52 Dose: 4 mg Pantoprazole Sodium (Protonix Ec Tab) 40 mg PO ACB [facility] Last Admin: 09/19/16 08:23 Dose: 40 mg Polyethylene Glycol (Miralax) 17 gm PO DAILY PRN PRN Reason: Constipation Last Admin: 09/19/16 08:36 Dose: 17 gm Sodium Chloride ([place] Nasal [place]) 0 ml NS BID [facility] - Labs Labs: 09/19/16 05:59 09/19/16 05:59 PT 11.7 Seconds (9.9-11.8) 09/19/16 11:50 INR 1.08 (0.93-1.08) 09/19/16 11:50 APTT 26.4 Seconds (23.7-30.8) 09/13/16 10:30 Attending/Attestation - Attestation I have personally seen and examined this patient.: Yes I have fully participated in the care of the patient.: Yes I have reviewed all pertinent clinical information, including history, physical exam and plan: Yes Notes (Text): I have seen and examined the patient with the resident. Agree with the above note with the following additions/ exceptions: Briefly this is 51 year old female with history of HTN, non compliant with medications at home, sickle cell trait, glaucoma, marijuana use, former alcohol abuser, OTC motrin use for headache on regular basis who presented with hypertensive emergency and found to have dehydration, hyponatremia, hypokalemia, elevated troponin, CHF due to systolic dysfunction (EF 35-40%), acute kidney injury, sepsis secondary to UTI and PRES syndrome. Today patient had an OIL WELL SERVICES DISPATCHER, when patient had nose bleed and hemoptysis. At that time, BP noted to be very high. SBP 250. Patient refused to take oral medications initially but later on agreed. BP remained very high. Discussed with Quality Control Lead. Patient was started on nicardipine drip and transferred to ICU. She also complained of abdominal pain. She had one small BM yesterday. Patient had vomiting and abdominal pain 2 days ago and found to have cholecystitis and ovarian cyst. Pelvic US showed fundal leiomyoma and simple ovarian cyst. Obgyn as an outpatient. HIDA is negative for cystic duct obstruction as per surgery team (Official result is pending) therefore no surgical intervention required. Her LFT's still elevated most likely due to medication induced. Will discuss with GI and ID. Patient was given 2 units pbc last night. Blood culture one bottle was positive for coag negative staph which is most likely due to contamination however dapto x 1 was given. She is getting rocephin for E Coli UTI. Hypokalemia has resolved however hyponatremia persists. Quality Control Lead, ID, cardio, neuro, GI and optho on board. Upon discharge patient will follow up with Dr Evita Swann. Dr Patsy Mitchell.
[2016-09-19 12:12] LABS: INR 1.08 (0.93-1.08)
--- NOTE | 2016-09-19 12:17 | PN ---
DATE: 09/19/2016 A 51-year-old female with past medical history of hypertension, admitted with hypertensive emergency. Findings consistent with PRES syndrome, acute renal failure. The patient today had rapid response earlier this morning after experiencing pain in the epigastric area and chest, found to have blood pr essure of 256/146. The patient reports that she has not been feeling well all morning, had some mild epistaxis that is currently resolved. VITAL SIGNS: As mentioned earlier, blood pressure 256/146, heart rate of 80, respirations from earli er this morning 20, temperature 98.6, O2 sat 100% on room air. PHYSICAL EXAMINATION: GENERAL: The patient, in moderate distress, tearful, but able to converse in full sentences coherent ly, oriented x 3. HEENT: Moist mucous membranes. Blood noted when the patient blew her nose in front of me. CHEST: Clear to auscultation bilaterally. No rales, no wheezes. HEART: S1, S2 positive, no murmurs, no gallops. ABDOMEN: Soft. Right-sided and epigastric tenderness present. EXTREMITIES: No leg edema. ASSESSMENT: 1. Hypertensive emergency. Markedly increased blood pressure readings today after being relatively c ontrolled during the day yesterday. Blood pressure as low as 141/96 at around 7:00 p.m. The patient is currently on 5 medications: amlodipine 10 mg daily, Coreg 12.5 mg b.i.d., clonidine 0.8 mg t.i.d ., hydralazine 50 mg t.i.d., Imdur 30 mg daily. Last medication dose before rapid response was yeste rd evening. The patient given IV hydralazine 10 mg stat, also being given 500 mL normal saline marianela us due to concern for volume depletion, driving renin-dependent hypertension as urine sodium yesterda y was less than 5. The patient being transferred to ICU to be put on a drip for blood pressure contr ol. 2. Malignant hypertension. The patient yesterday gave history possibly consistent with the type of episodic spells consistent with pheochromocytoma. Plasma metanephrines elevated to almost 4 times th e upper limit of normal. We will obtain 24-hour urine for metanephrines. Aldosterone level mildly e levated but possibly secondary to volume depletion. Awaiting rennin level. 3. Acute renal failure on chronic kidney disease as evidenced by echogenic kidneys on ultrasound. A cute kidney injury likely secondary to malignant hypertension worsened by need to control blood press ure stringently in the setting of posterior reversible encephalopathy syndrome. Needs further workup for cause of chronic kidney disease as urine protein was 2+, although this was in the setting of hyp ertensive emergency. 4. Hyponatremia, mild although slightly worsened since yesterday. Previous urine indices consistent with volume depletion with urine sodium less than 5 and urine osmolality elevated at 358. Would lik timoteo respond to volume challenge. 5. Anemia secondary to marked iron deficiency, status post 2 units packed red blood cells yesterday. Need stool for occult blood. 6. Urinary tract infection, on ceftriaxone. No renal dose adjustment needed. Shane Rosen MD cc: [id number] TT: 09/19/2016 12:16:53 Confirmation # [id number] Dictation # [id number] mn
--- NOTE | 2016-09-19 12:39 | CP.PCM.PN ---
<Luciano Mustafa - Last Filed: 09/19/16 12:43> Subjective - Date & Time of Evaluation Date of Evaluation: 09/19/16 Time of Evaluation: 10:12 - Subjective Subjective: CLINICAL RESEARCH TECHNICIAN was called at 10:12 for elevated BP Patient's BP was elevated at 256/146 and complaining of epitaxis and hemoptysis. Patient was refusing to take her oral BP meds because no one responded when she paged the nurse for the nosebleed. Lopressor 5 mg was given. BP remained elevated at 227/139. Patient finally agreed to take medications after thorough discussion. BP was still 220s/130s. Stat EKG, CXR, Troponins were all performed. Afterwards, Hydralazine 10 mg IVP was given. Again, BP remained elevated. 500 cc bolus was given at that time as per Dr. Rosen. Critical care consult was called and ICU accepted patient after evaluation. Patient was transferred to ICU and started on Nicardipine drip. Morphine was given for abd pain. Vital Signs: 98 F, BP 227/139, HR 68, RR 18, O2 sat 99% HEENT: NCAT, dryed blood in nasal passages and mouth, mucus membranes moist RESP: CTAB CARDIO: RRR, +S1, +S2 ABD: BS+, Soft, Tenderness in epigastric region, no guarding, rebound or distention NEURO: AAO x 3 Objective - Vital Signs/Intake and Output Vital Signs (last 24 hours): Temp Pulse Resp BP Pulse Ox 98.6 F 61 20 157/86 H 95 09/19/16 05:28 09/19/16 12:00 09/19/16 12:00 09/19/16 12:00 09/19/16 12:00 Intake and Output: 09/19/16 09/19/16 06:59 18:59 Intake Total 265 Output Total 0 Balance 265 - Medications Medications: Current Medications Amlodipine Besylate (Norvasc) 10 mg PO DAILY [facility] Last Admin: 09/19/16 10:05 Dose: 10 mg Aspirin (Ecotrin) 81 mg PO DAILY [facility] Last Admin: 09/19/16 10:04 Dose: 81 mg Atorvastatin Calcium (Lipitor) 20 mg PO DIN [facility] Last Admin: 09/17/16 17:08 Dose: 20 mg Carvedilol (Coreg) 12.5 mg PO BID [facility] Last Admin: 09/19/16 10:04 Dose: 12.5 mg Clonidine HCl (Catapres) 0.3 mg PO Q8 [facility] Docusate Sodium (Colace) 100 mg PO DAILY [facility] Last Admin: 09/19/16 10:04 Dose: 100 mg Hydralazine HCl (Apresoline) 50 mg PO TID [facility] Last Admin: 09/19/16 10:05 Dose: 50 mg Iron Sucrose 200 mg/ Sodium (Chloride) 110 mls @ 110 mls/hr IVPB DAILY [facility] Stop: 09/21/16 10:01 Last Admin: 09/19/16 10:08 Dose: 110 mls/hr Ceftriaxone Sodium (Rocephin 1 Gram Ivpb) 100 mls @ 100 mls/hr IVPB DAILY [facility] PRN Reason: Protocol Last Admin: 09/19/16 10:08 Dose: 100 mls/hr Nicardipine HCl (Cardene Iv Premix) 200 mls @ 50 mls/hr IV .Q4H PRN; Protocol; 5 MG/HR PRN Reason: TITRATE PER MD ORDER Last Titration: 09/19/16 12:00 Dose: 5 mg/hr Isosorbide Mononitrate (Imdur) 30 mg PO DAILY [facility] Last Admin: 09/19/16 10:04 Dose: 30 mg Lorazepam (Ativan) 0.5 mg IVP Q4H PRN; Protocol PRN Reason: Anxiety Last Admin: 09/16/16 22:17 Dose: 0.5 mg Metoprolol Tartrate (Lopressor) 5 mg IVP Q6H PRN PRN Reason: Systolic Blood Pressure Last Admin: 09/19/16 10:02 Dose: 5 mg Morphine Sulfate (Morphine) 2 mg IVP Q4H PRN PRN Reason: Pain, moderate (4-7) Last Admin: 09/19/16 10:26 Dose: 2 mg Multi-Ingredient Cream (Hydrocerin Cream) 1 ea TOP BID PRN PRN Reason: Dry nasal passages Ondansetron HCl (Zofran Inj) 4 mg IVP Q8H PRN PRN Reason: Nausea/Vomiting Last Admin: 09/19/16 03:52 Dose: 4 mg Pantoprazole Sodium (Protonix Ec Tab) 40 mg PO ACB [facility] Last Admin: 09/19/16 08:23 Dose: 40 mg Polyethylene Glycol (Miralax) 17 gm PO DAILY PRN PRN Reason: Constipation Last Admin: 09/19/16 08:36 Dose: 17 gm Quetiapine Fumarate (Seroquel) 12.5 mg PO DAILY [facility] PRN Reason: Protocol Sodium Chloride ([place] Nasal [place]) 0 ml NS BID [facility] - Labs Labs: 09/19/16 05:59 09/19/16 05:59 PT 11.7 Seconds (9.9-11.8) 09/19/16 11:50 INR 1.08 (0.93-1.08) 09/19/16 11:50 APTT 26.4 Seconds (23.7-30.8) 09/13/16 10:30 <Dora Yeung - Last Filed: 09/19/16 15:09> Objective - Vital Signs/Intake and Output Vital Signs (last 24 hours): Temp Pulse Resp BP Pulse Ox 98.6 F 61 20 157/86 H 95 09/19/16 05:28 09/19/16 12:00 09/19/16 12:00 09/19/16 12:00 09/19/16 12:00 Intake and Output: 09/19/16 09/19/16 06:59 18:59 Intake Total 265 Output Total 0 Balance 265 - Medications Medications: Current Medications Amlodipine Besylate (Norvasc) 10 mg PO DAILY [facility] Last Admin: 09/19/16 10:05 Dose: 10 mg Aspirin (Ecotrin) 81 mg PO DAILY [facility] Last Admin: 09/19/16 10:04 Dose: 81 mg Atorvastatin Calcium (Lipitor) 20 mg PO DIN [facility] Last Admin: 09/17/16 17:08 Dose: 20 mg Carvedilol (Coreg) 12.5 mg PO BID [facility] Last Admin: 09/19/16 10:04 Dose: 12.5 mg Clonidine HCl (Catapres) 0.3 mg PO Q8 [facility] Docusate Sodium (Colace) 100 mg PO DAILY [facility] Last Admin: 09/19/16 10:04 Dose: 100 mg Hydralazine HCl (Apresoline) 50 mg PO Q8 [facility] Iron Sucrose 200 mg/ Sodium (Chloride) 110 mls @ 110 mls/hr IVPB DAILY [facility] Stop: 09/21/16 10:01 Last Admin: 09/19/16 10:08 Dose: 110 mls/hr Ceftriaxone Sodium (Rocephin 1 Gram Ivpb) 100 mls @ 100 mls/hr IVPB DAILY [facility] PRN Reason: Protocol Last Admin: 09/19/16 10:08 Dose: 100 mls/hr Nicardipine HCl (Cardene Iv Premix) 200 mls @ 50 mls/hr IV .Q4H PRN; Protocol; 5 MG/HR PRN Reason: TITRATE PER MD ORDER Last Titration: 09/19/16 12:00 Dose: 5 mg/hr Isosorbide Mononitrate (Imdur) 30 mg PO DAILY [facility] Last Admin: 09/19/16 10:04 Dose: 30 mg Lorazepam (Ativan) 0.5 mg IVP Q4H PRN; Protocol PRN Reason: Anxiety Last Admin: 09/16/16 22:17 Dose: 0.5 mg Metoprolol Tartrate (Lopressor) 5 mg IVP Q6H PRN PRN Reason: Systolic Blood Pressure Last Admin: 09/19/16 10:02 Dose: 5 mg Morphine Sulfate (Morphine) 2 mg IVP Q4H PRN PRN Reason: Pain, moderate (4-7) Last Admin: 09/19/16 10:26 Dose: 2 mg Multi-Ingredient Cream (Hydrocerin Cream) 1 ea TOP BID PRN PRN Reason: Dry nasal passages Ondansetron HCl (Zofran Inj) 4 mg IVP Q8H PRN PRN Reason: Nausea/Vomiting Last Admin: 09/19/16 03:52 Dose: 4 mg Pantoprazole Sodium (Protonix Ec Tab) 40 mg PO ACB [facility] Last Admin: 09/19/16 08:23 Dose: 40 mg Polyethylene Glycol (Miralax) 17 gm PO DAILY PRN PRN Reason: Constipation Last Admin: 09/19/16 08:36 Dose: 17 gm Sodium Chloride ([place] Nasal [place]) 0 ml NS BID [facility] - Labs Labs: 09/19/16 05:59 09/19/16 05:59 PT 11.7 Seconds (9.9-11.8) 09/19/16 11:50 INR 1.08 (0.93-1.08) 09/19/16 11:50 APTT 26.4 Seconds (23.7-30.8) 09/13/16 10:30 Attending/Attestation - Attestation I have personally seen and examined this patient.: Yes I have fully participated in the care of the patient.: Yes I have reviewed all pertinent clinical information, including history, physical exam and plan: Yes Notes (Text): 09/19/16 15:00 O/E Pupils were equal and reactive,there was dry blood in the nose. IMP: Hypertension Epistaxis Anemia Abdominal pain PLan: Patient was transferred to ICU
--- NOTE | 2016-09-19 13:45 | PN ---
DATE: 09/19/2016 The patient seen and examined at bedside. She is comfortable. She talks full sentences. She is not nauseated and not vomiting any more. The patient was just admitted to ICU again for need f antihypertensive IV drip. She had uncontrolled blood pressure with excessive of 200 systolic on the floor which did not budge after several IV pushes and p.o. antihypertensive medications. PHYSICAL EXAMINATION: At the present time, includes: VITAL SIGNS: Blood pressure 157/86, heart rate 61, respiratory rate is 20, oxygen saturation 95%. HEAD AND NECK: Atraumatic. LUNGS: Clear to auscultation bilaterally. HEART: Regular rate and rhythm. S1, S2 normal. ABDOMEN: Soft, nontender, nondistended. MUSCULOSKELETAL: No C/C/E. NEUROLOGIC: The patient moves all extremities spontaneously. SKIN: Moist. PSYCHIATRIC: The patient is alert and oriented x 3. LABORATORY DATA: WBC 9.5, hemoglobin 10 (up from 7.9), platelet count 234. Sodium 130, potassium 4, chloride 99, carbon dioxide 20, BUN 77, creatinine 4.2 , glucose 99. Troponin 0.54, which is down from 2.24, AST 147 down from 197, ALT relatively stable compared with 241 yesterday. MEDICATIONS: Hydralazine 50 mg p.o. t.i.d., Ativan p.r.n., clonidine 0.3 mg p.o. q. 8 hours, Colace, Coreg, aspirin, isosorbide mononitrate, iron sucrose, Lipitor, metoprolol, morphine p.r.n., amlodipine, Protonix, ceftriaxone, quetiapine, Zofran p.r.n. and Cardene drip. ASSESSMENT AND PLAN: This is a 51-year-old lady who presented about a week ago with hypertensive emergency and was started on IV Cardene drip. Eventually, she was weaned off of Cardene drip and transferred to regular floor. The workup for malignant/refractory hypertension was ongoing. Concern for pheochromocytoma and hyperaldosteronism prompted measurement of catecholamine metabolites as well as aldosterone/renin plasma concentration ratio. The patient was also followed up by renal service and some troponin leak was identified which thought to be secondary to hypertensive cardiomyopathy and acute [employer] pathology (PRES syndrome). Cardiology did not deem necessary to perform a coronary angiography especially in the setting of acute on chronic kidney disease. While on the floor, the patient exhibited poor compliance with antihypertensive medication and on many occasions, refused to take them. Today , the patient had some nasal and mouth? bleed, which she cited as a reason why she refused antihypertensive medication. Her blood pressure went up above 200. It did stay above 200 after several boluses of IV and p.o. antihypertensive medications. Thus, patient was transferred back to ICU for IV Cardene drip to regain control of her blood pressure. At present time, the patient is on Cardene drip. She finally took her IV and PO antihypertensive medication. She was counseled about the importance of adhering to her current antihypertensive regimen. We will continue to wean off Cardene drip as tolerated and as long as her blood pressure remained within appropriate autoregulatory range of her kidneys and the brain. We will continue to target euvolemia, euglycemia, normothermia and oxygen saturation more than 90%. The patient does not have any neurological focal deficit. Her creatinine today is slightly better than yesterday, but GFR appears to be plateaued around 12-14. Her troponin is getting down. We will continue with DVT and GI prophylaxis. ccm time 40 min Rafi Myers MD cc: [id number] TT: 09/19/2016 13:45:05 Confirmation # [id number] Dictation # [id number] ellie LANE
--- NOTE | 2016-09-19 14:03 | PN ---
DATE: 09/19/2016 The patient was transferred to the ICU because of uncontrolled hypertension. She did develop nasal b leed and also regurgitated some blood from her mouth, most likely from postnasal dripping. Abdominal pain has improved. No chest pain. PHYSICAL EXAMINATION: VITAL SIGNS: Blood pressure 157/86, heart rate 61, temperature 98.6. HEENT: Pale conjunctivae. CHEST: Clear. HEART: S1, S2 regular. EXTREMITIES: No edema. LABORATORIES: Today's hemoglobin and hematocrit 10 and 27.8. White count and platelet count are wit hin normal limit. SMA-7: Sodium 130, potassium 4, chloride 99, CO2 20, glucose 99, BUN 77, creatini ne 4.2. Troponin is borderline elevated at 0.54. Abdominal ultrasound: Fatty infiltrate of the liver, gallbladder sludge without cholelithiasis. Pel winifred ultrasound: Fundal leiomyoma, 4 cm simple cyst in the right ovary. ASSESSMENT: 1. Uncontrolled hypertension. 2. Chronic renal insufficiency. 3. Borderline troponin elevation. 4. Hypertensive encephalopathy. 5. Anemia. 6. Cannabinoid abuse. RECOMMENDATIONS: Continue hydralazine, IV nifedipine. Continue oral clonidine, Coreg, aspirin, Imdu r, Lipitor, p.r.n. IV Lopressor. Continue oral Norvasc. Case was discussed with cuff cutter, Dr. Mariely lira. Misael Carson MD cc: [id number] TT: 09/19/2016 14:02:05 Confirmation # [id number] Dictation # [id number] en
--- NOTE | 2016-09-19 14:51 | RAD ---
HISTORY: r/o effusion COMPARISON: No prior. FINDINGS: LUNGS: No active pulmonary disease. PLEURA: No significant pleural effusion identified, no pneumothorax apparent. CARDIOVASCULAR: Normal. OSSEOUS STRUCTURES: No significant abnormalities. VISUALIZED UPPER ABDOMEN: Normal. OTHER FINDINGS: None. IMPRESSION: No active disease.
--- NOTE | 2016-09-19 16:59 | CARD ---
APPROVED REPORT EKG Measurement Heart [id number] MD [id number] <Conclusion> Normal sinus rhythm Possible Left atrial enlargement Left ventricular hypertrophy T wave abnormality, consider lateral ischemia Abnormal ECG
[2016-09-20 03:36] LABS: ALDO/PRA RATIO 0.8 Ratio (0.9-28.9)
[2016-09-20 06:32] LABS: ADD MANUAL DIFF? NO
[2016-09-20 06:38] LABS: BASO # 0.02 K/mm3 (0.0-2.0); BASO % 0.3 % (0.0-3.0); EOS # 0.2 (0.0-0.7); GRAN # 5.85 (1.4-6.5); HEMATOCRIT 28.1 % (36.0-48.0); LYMPH # 0.7 (1.2-3.4); LYMPH % 9.4 % (22.0-35.0); MEAN CELL VOLUME 85.2 fL (80.0-105.0); MEAN CORPUSCULAR HEMOGLOBIN 30.3 pg (25.0-35.0); MEAN CORPUSCULAR HGB CONC 35.6 g/dl (31.0-37.0); MEAN PLATELET VOLUME 11.9 fl (7.0-11.0); MONO # 1.1 (0.1-0.6); MONO % 14.3 % (1.0-6.0); PLATELET COUNT 264 10^3/uL (120.0-450.0); RED CELL DISTRIBUTION WIDTH 17.2 % (11.5-14.5); WHITE BLOOD COUNT 7.9 10^3/ul (4.5-11.0)
[2016-09-20 06:59] LABS: BILIRUBIN,TOTAL 0.4 mg/dL (0.2-1.3); CALCIUM 8.4 mg/dL (8.4-10.5); MAGNESIUM 2.2 mg/dL (1.7-2.2); POTASSIUM 3.7 mmol/L (3.6-5.0); TOTAL PROTEIN 6.1 g/dL (5.8-8.3)
[2016-09-20 07:05] LABS: PHOSPHOROUS 5.7 mg/dL (2.5-4.5)
[2016-09-20] MEDS: Metoprolol 1 mg/ml Inj IVP PRN (07:35)
[2016-09-20] MEDS: Nicardipine 20 MG/200 ML 200 ML IV PRN ×6 (07:43→22:55)
--- NOTE | 2016-09-20 08:22 | PN ---
DATE: 09/19/2016 SUBJECTIVE: The patient has been transferred to intensive care unit for uncontrolled hypertension. Her blood pressure this morning is 212/139. She is awake. She is complaining of some epigastric dis comfort. She denies any chest pain or palpitations. PHYSICAL EXAMINATION: VITAL SIGNS: Reveal temperature of 98.6, blood pressure 212/139, heart rate is 61. ABDOMEN: Obese, soft, mild epigastric tenderness. No rebound, no guarding. LABORATORY DATA: Reveal hemoglobin of 10, up from 7.9. BUN 77, creatinine 4.2, sodium of 130. IMPRESSION: A 51-year-old female with accelerated hypertension, acute on chronic renal failure, epig astric pain, elevated liver enzymes. Her liver enzymes have stabilized with an AST of 146 down from 197, ALT up to 296 from 241, alkaline phosphatase of 387, total bilirubin of 0.7. Hemoglobin is up t o 10 after 2 units of packed red blood cells. IMPRESSION: A 51-year-old female with uncontrolled accelerated hypertension with intermittent epigas tric pain. I suspect that the abdominal pain is related to the accelerated hypertension and may be a n anginal equivalent. She does have sludge in the gallbladder. Her liver enzymes have stabilized. Her Rocephin has been restarted by infectious disease. RECOMMENDATIONS: 1. Aggressive treatment of her accelerated uncontrolled hypertension by commanding officer homicide squad, cardiology and renal. 2. Follow liver enzymes. 3. Can give analgesics as needed for abdominal pain. Carlos Moran MD cc: [id number] TT: 09/19/2016 12:30:06 Confirmation # [id number] Dictation # [id number] en
--- NOTE | 2016-09-20 09:37 | CP.CCUPN ---
<Melinda Ramirez - Last Filed: 09/20/16 14:42> CCU Subjective - Physician Review Events Since Last Encounter (Free Text): 09/20/16 14:42 Patient seen and examined bedside. No acute events overnight. Patient denies CP , SOB, headache, dizziness, abd pain, n/v, fevers, chills. Critical Care Time Spent (in minutes): 40 CCU Objective - Vital Signs / Intake & Output Vital Signs (Last 4 hours): Vital Signs Temp Pulse Resp BP Pulse Ox 09/20/16 08:25 58 L 209/101 H 09/20/16 08:24 62 209/101 H 09/20/16 08:05 74 09/20/16 08:00 98.5 F 56 L 16 183/98 H 99 09/20/16 07:45 56 L 17 98 09/20/16 07:35 64 190/75 H 09/20/16 07:30 58 L 30 H 188/93 H 98 09/20/16 07:03 64 27 H 190/115 H 93 L 09/20/16 07:00 63 21 181/102 H 100 09/20/16 06:30 58 L 169/80 H 97 09/20/16 06:06 65 175/93 H 09/20/16 06:02 56 L 26 H 100 09/20/16 06:00 57 L 175/93 H 98 Intake and Output (Last 8hrs): Intake & Output 09/19/16 09/20/16 09/20/16 22:59 06:59 14:59 Intake Total 1180 175 Output Total 600 500 Balance 580 -325 Weight 165 lb 3.2 oz Intake: IV 700 55 Left Upper arm 700 55 Oral 480 120 Output: Urine 600 500 Urethral (Cano) 600 500 Other: Voiding Method Bedside Commode Indwelling Catheter # Bowel Movements 0 0 - Physical Exam Head: Positive for: Atraumatic, Normocephalic Pupils: Positive for: PERRL (No vision left eye) Extroacular Muscles: Positive for: EOMI Conjunctiva: Positive for: Normal Mouth: Positive for: Moist Mucous Membranes Neck: Positive for: Normal Range of Motion Respiratory/Chest: Positive for: Clear to Auscultation, Good Air Exchange, Tender to Palpation (Tenderness to chest wall). Negative for: Respiratory Distress, Accessory Muscle Use Cardiovascular: Positive for: Regular Rate and Rhythm, Normal S1, S2. Negative for: Murmurs Abdomen: Positive for: Normal Bowel Sounds. Negative for: Tenderness, Distention, Peritoneal Signs, Rebound Back: Positive for: Normal Inspection Upper Extremity: Positive for: Normal Inspection. Negative for: Cyanosis, Edema Lower Extremity: Positive for: Normal Inspection, NORMAL PULSES. Negative for: Edema, CALF TENDERNESS Neurological: Positive for: GCS=15, CN II-XII Intact, Speech Normal Skin: Positive for: Warm, Dry, Normal Color. Negative for: Rashes Psychiatric: Positive for: Alert, Oriented x 3, Normal Insight, Normal Concentration - Medications Active Medications: Active Medications Generic Name Dose Route Start Last Admin Trade Name Freq PRN Reason Stop Dose Admin Amlodipine Besylate 10 mg 09/15/16 12:05 09/20/16 09:07 Norvasc PO Not Given DAILY ANNA Aspirin 81 mg 09/14/16 10:00 09/20/16 09:06 Ecotrin PO Not Given DAILY ANNA Atorvastatin Calcium 20 mg 09/15/16 17:00 09/17/16 17:08 Lipitor PO 20 mg DIN ANNA Administration Carvedilol 12.5 mg 09/17/16 20:00 09/20/16 09:06 Coreg PO Not Given BID ANNA Clonidine HCl 0.3 mg 09/19/16 14:00 09/20/16 07:00 Catapres PO 0.3 mg Q8 ANNA Administration Docusate Sodium 100 mg 09/14/16 10:00 09/20/16 09:06 Colace PO Not Given DAILY ANNA Hydralazine HCl 50 mg 09/19/16 14:00 09/20/16 06:06 Apresoline PO 50 mg Q8 ANNA Administration Iron Sucrose 200 mg/ Sodium 110 mls @ 110 mls/hr 09/16/16 10:00 09/20/16 08:25 Chloride IVPB 09/21/16 10:01 110 mls/hr DAILY ANNA Administration Ceftriaxone Sodium 100 mls @ 100 mls/hr 09/19/16 10:00 09/19/16 10:08 Rocephin 1 Gram Ivpb IVPB 100 mls/hr DAILY ANNA Administration Protocol Nicardipine HCl 200 mls @ 50 mls/hr 09/19/16 10:52 09/20/16 08:14 Cardene Iv Premix IV 50 mls/hr .Q4H PRN Administration TITRATE PER MD ORDER Protocol 5 MG/HR Isosorbide Mononitrate 30 mg 09/15/16 10:00 09/20/16 09:07 Imdur PO Not Given DAILY ANNA Lorazepam 0.5 mg 09/16/16 08:36 09/19/16 21:15 Ativan IVP 0.5 mg Q4H PRN Administration Anxiety Protocol Metoprolol Tartrate 5 mg 09/17/16 12:21 09/20/16 07:35 Lopressor IVP 5 mg Q6H PRN Administration Systolic Blood Pressure Morphine Sulfate 2 mg 09/14/16 07:39 09/19/16 15:26 Morphine IVP 2 mg Q4H PRN Administration Pain, moderate (4-7) Multi-Ingredient Cream 1 ea 09/17/16 11:01 Hydrocerin Cream TOP BID PRN Dry nasal passages Ondansetron HCl 4 mg 09/19/16 03:45 09/19/16 03:52 Zofran Inj IVP 4 mg Q8H PRN Administration Nausea/Vomiting Pantoprazole Sodium 40 mg 09/18/16 12:45 09/19/16 08:23 Protonix Ec Tab PO 40 mg ACB ANNA Administration Polyethylene Glycol 17 gm 09/15/16 08:03 09/19/16 08:36 Miralax PO 17 gm DAILY PRN Administration Constipation Sodium Chloride 0 ml 09/19/16 12:30 09/19/16 17:35 [place] Nasal [place] NS 2 spr BID ANNA Administration - Patient Studies Lab Studies: Microbiology Studies 09/15/16 19:20 Blood Culture - Preliminary Blood-Venous NO GROWTH AFTER 4 DAYS 09/15/16 19:00 Blood Culture - Preliminary Blood-Venous NO GROWTH AFTER 4 DAYS Lab Studies 09/20/16 09/19/16 09/19/16 Range/Units 06:00 11:50 10:14 WBC 7.9 (4.5-11.0) 10^3/ul RBC 3.30 L (3.5-6.1) 10^6/uL Hgb 10.0 L (12.0-16.0) gm/dL Hct 28.1 L (36.0-48.0) % MCV 85.2 (80.0-105.0) fL MCH 30.3 (25.0-35.0) pg MCHC 35.6 (31.0-37.0) g/dl RDW 17.2 H (11.5-14.5) % Plt Count 264 (120.0-450.0) 10^3/uL MPV 11.9 H (7.0-11.0) fl Gran % 74.0 H (50.0-68.0) % Lymph % (Auto) 9.4 L (22.0-35.0) % [place] % (Auto) 14.3 H (1.0-6.0) % Eos % (Auto) 2.0 (1.5-5.0) % Baso % (Auto) 0.3 (0.0-3.0) % Gran # 5.85 (1.4-6.5) Lymph # 0.7 L (1.2-3.4) [place] # 1.1 H (0.1-0.6) Eos # 0.2 (0.0-0.7) Baso # 0.02 (0.0-2.0) K/mm3 PT 11.7 (9.9-11.8) Seconds INR 1.08 (0.93-1.08) Sodium 133 (132-148) mmol/L Potassium 3.7 (3.6-5.0) mmol/L Chloride 101 (95-110) mmol/L Carbon Dioxide 20 L (21-33) mmol/L Anion Gap 16 (10-20) BUN 72 H (7-21) mg/dL Creatinine 4.0 H (0.5-1.4) mg/dL Est GFR ( Amer) 14 Est GFR (Non-Af Amer) 12 POC Glucose (mg/dL) 94 (65-110) mg/dL Random Glucose 97 (70-110) mg/dL Calcium 8.4 (8.4-10.5) mg/dL Phosphorus 5.7 H (2.5-4.5) mg/dL Magnesium 2.2 (1.7-2.2) mg/dL Total Bilirubin 0.4 (0.2-1.3) mg/dL AST 113 H (15-39) U/L ALT 292 H (7-56) U/L Alkaline Phosphatase 350 H (38-133) U/L Troponin I 0.54 H* D ng/mL Total Protein 6.1 (5.8-8.3) g/dL Albumin 3.0 (3.0-4.8) g/dL Globulin 3.1 gm/dL Albumin/Globulin Ratio 1.0 L (1.1-1.8) Renin (0.25-5.82) ng/mL/h Aldosterone/Renin Ratio (0.9-28.9) Ratio Hepatitis A IgM Ab (NEGATIVE) Hep Bs Antigen (NEGATIVE) Hep B Core IgM Ab (NEGATIVE) Hepatitis C Antibody (NEGATIVE) 09/18/16 09/13/16 Range/Units 06:45 14:14 WBC (4.5-11.0) 10^3/ul RBC (3.5-6.1) 10^6/uL Hgb (12.0-16.0) gm/dL Hct (36.0-48.0) % MCV (80.0-105.0) fL MCH (25.0-35.0) pg MCHC (31.0-37.0) g/dl RDW (11.5-14.5) % Plt Count (120.0-450.0) 10^3/uL MPV (7.0-11.0) fl Gran % (50.0-68.0) % Lymph % (Auto) (22.0-35.0) % [place] % (Auto) (1.0-6.0) % Eos % (Auto) (1.5-5.0) % Baso % (Auto) (0.0-3.0) % Gran # (1.4-6.5) Lymph # (1.2-3.4) [place] # (0.1-0.6) Eos # (0.0-0.7) Baso # (0.0-2.0) K/mm3 PT (9.9-11.8) Seconds INR (0.93-1.08) Sodium (132-148) mmol/L Potassium (3.6-5.0) mmol/L Chloride (95-110) mmol/L Carbon Dioxide (21-33) mmol/L Anion Gap (10-20) BUN (7-21) mg/dL Creatinine (0.5-1.4) mg/dL Est GFR ( Amer) Est GFR (Non-Af Amer) POC Glucose (mg/dL) (65-110) mg/dL Random Glucose (70-110) mg/dL Calcium (8.4-10.5) mg/dL Phosphorus (2.5-4.5) mg/dL Magnesium (1.7-2.2) mg/dL Total Bilirubin (0.2-1.3) mg/dL AST (15-39) U/L ALT (7-56) U/L Alkaline Phosphatase (38-133) U/L Troponin I ng/mL Total Protein (5.8-8.3) g/dL Albumin (3.0-4.8) g/dL Globulin gm/dL Albumin/Globulin Ratio (1.1-1.8) Renin 19.76 H (0.25-5.82) ng/mL/h Aldosterone/Renin Ratio 0.8 L (0.9-28.9) Ratio Hepatitis A IgM Ab Negative (NEGATIVE) Hep Bs Antigen Negative (NEGATIVE) Hep B Core IgM Ab Negative (NEGATIVE) Hepatitis C Antibody Negative (NEGATIVE) Laboratory Results - last 24 hr 09/13/16 09/18/16 09/19/16 14:14 06:45 10:14 WBC RBC Hgb Hct MCV MCH MCHC RDW Plt Count MPV Gran % Lymph % (Auto) [place] % (Auto) Eos % (Auto) Baso % (Auto) Gran # Lymph # [place] # Eos # Baso # PT INR Sodium Potassium Chloride Carbon Dioxide Anion Gap BUN Creatinine Est GFR ( Amer) Est GFR (Non-Af Amer) POC Glucose (mg/dL) 94 Random Glucose Calcium Phosphorus Magnesium Total Bilirubin AST ALT Alkaline Phosphatase Troponin I Total Protein Albumin Globulin Albumin/Globulin Ratio Renin 19.76 H Aldosterone/Renin Ratio 0.8 L Hepatitis A IgM Ab Negative Hep Bs Antigen Negative Hep B Core IgM Ab Negative Hepatitis C Antibody Negative 09/19/16 09/20/16 11:50 06:00 WBC 7.9 RBC 3.30 L Hgb 10.0 L Hct 28.1 L MCV 85.2 MCH 30.3 MCHC 35.6 RDW 17.2 H Plt Count 264 MPV 11.9 H Gran % 74.0 H Lymph % (Auto) 9.4 L [place] % (Auto) 14.3 H Eos % (Auto) 2.0 Baso % (Auto) 0.3 Gran # 5.85 Lymph # 0.7 L [place] # 1.1 H Eos # 0.2 Baso # 0.02 PT 11.7 INR 1.08 Sodium 133 Potassium 3.7 Chloride 101 Carbon Dioxide 20 L Anion Gap 16 BUN 72 H Creatinine 4.0 H Est GFR ( Amer) 14 Est GFR (Non-Af Amer) 12 POC Glucose (mg/dL) Random Glucose 97 Calcium 8.4 Phosphorus 5.7 H Magnesium 2.2 Total Bilirubin 0.4 AST 113 H ALT 292 H Alkaline Phosphatase 350 H Troponin I 0.54 H* D Total Protein 6.1 Albumin 3.0 Globulin 3.1 Albumin/Globulin Ratio 1.0 L Renin Aldosterone/Renin Ratio Hepatitis A IgM Ab Hep Bs Antigen Hep B Core IgM Ab Hepatitis C Antibody EKG/Cardiology Studies: Cardiology / EKG Studies 09/19/16 10:22 EKG [ELECTROCARDIOGRAM] Stat Comment: Reason For Exam: chest discomfort Critical Care Progress Note - Nutrition Nutrition: Nutrition Category Date Time Status Heart Healthy Diet [DIET] Diets 09/18/16 Breakfast Ordered Assessment/Plan - Assessment and Plan (Free Text) Assessment: 51 yo F w h/o uncontrolled HTN admitted to ICU with hypertensive emergency, PRES syndrome, cardiomyopathy, ESTEFANI, vitreous hemorrhage, left retinal detachment now back to ICU for elevated BP again poorly responsive to Hydralazine and clonidine, currently on Cardene drip. Plan: Neuro: AAOx3, NAD MRI head shows extensive brainstem, basal ganglia and thalamic edema, no acute infarct or hemorrhage. Will take 3-6 months to see changes on MRI given current PRES syndrome Neuro recs appreciated re: re-imaging. Will touch base with neurology and follow recs. Maintain normothermia EEG showed diffuse slowing c/w BL cerebral dysfunction, no epileptiform activity Will need optho followup when stable for retinal detachment CV: Hypertensive emergency on Cardene drip. Goal SBP 120-130 Norvasc 10mg PO QDay, Clonidine 0.3mg PO Q8hr, Hydralazine 50mg pO TID, Imdur 30mg PO Qday. Cardene drip, titrate to SBP goal 120-130 DC Coreg, Lopressor. Start Doxazosin 1mg PO QDay. OK'ed with cardiology Continue ASA for stroke prevention No renal artery stenosis seen on Duplex. Medical renal Disease BL kidneys Pheochromocytoma suspected. Elevated metanephrines. Confirmatory workup pending. Avoid unopposed beta blockade. Continue hydration Maintain MAP >65 Pulm: No acute issues, able to protect airway. Comfortable and saturating in high 90s-100% on room air Maintain spo2>90 GI/: Pelvic US shows fundal leiomyoma, 4cm right ovarian cyst Abdominal X-ray shows constipation. Patient denies BM x 13 days. Miralax, Senna, Colace GI ppx s/p 2units pRBC transfusion. Hb currently stable. GI recs appreciated Renal: ESTEFANI stable, not improving. Continue monitoring renal function. Vasculitis workup pending as per nephro Endo: No acute issues A1C 4.2 Maintain euglycemia 140-180 ID: No Leukocytosis, afebrile. Rocephin for E coli UTI as per ID 09/14 blood cultures show coagulase negative Staph aureus - Repeat blood cultures negative Heme: Iron deficiency anemia. Continue venofer Hb 10.0, stable s/p 2u pRBCs 2 days ago DVT/GI ppx: SCDs, Protonix, HHD - Date & Time Date: 09/20/16 Time: 09:36 <Jackelin Mitchell MD - Last Filed: 09/20/16 16:06> CCU Objective - Vital Signs / Intake & Output Vital Signs (Last 4 hours): Vital Signs Pulse Resp BP Pulse Ox 09/20/16 14:44 66 162/87 H 09/20/16 14:43 66 162/87 H 09/20/16 14:00 67 27 H 157/98 H 99 09/20/16 13:45 70 28 H 162/90 H 99 09/20/16 13:30 62 25 H 148/86 99 09/20/16 13:15 61 27 H 150/72 99 09/20/16 13:00 62 145/70 99 09/20/16 12:45 64 25 H 177/87 H 100 09/20/16 12:30 68 20 154/103 H 98 09/20/16 12:17 65 24 100 09/20/16 12:15 63 28 H 148/76 99 Intake and Output (Last 8hrs): Intake & Output 09/20/16 09/20/16 09/20/16 06:59 14:59 22:59 Intake Total 175 Output Total 500 350 Balance -325 -350 Weight 165 lb 3.2 oz Intake: IV 55 Left Upper arm 55 Oral 120 Output: Urine 500 350 Urethral (Cano) 500 350 Other: Voiding Method Indwelling Catheter # Bowel Movements 0 - Medications Active Medications: Active Medications Generic Name Dose Route Start Last Admin Trade Name Freq PRN Reason Stop Dose Admin Amlodipine Besylate 10 mg 09/15/16 12:05 09/20/16 09:07 Norvasc PO Not Given DAILY [facility] Aspirin 81 mg 09/14/16 10:00 09/20/16 09:06 Ecotrin PO Not Given DAILY [facility] Clonidine HCl 0.3 mg 09/19/16 14:00 09/20/16 14:43 Catapres PO 0.3 mg Q8 ANNA Administration Docusate Sodium 100 mg 09/14/16 10:00 09/20/16 09:06 Colace PO Not Given DAILY [facility] Doxazosin Mesylate 1 mg 09/20/16 22:00 Cardura PO 2200 ANNA Hydralazine HCl 50 mg 09/19/16 14:00 09/20/16 14:44 Apresoline PO 50 mg Q8 ANNA Administration Iron Sucrose 200 mg/ Sodium 110 mls @ 110 mls/hr 09/16/16 10:00 09/20/16 10:00 Chloride IVPB 09/21/16 10:01 Not Given DAILY [facility] Ceftriaxone Sodium 100 mls @ 100 mls/hr 09/19/16 10:00 09/20/16 10:00 Rocephin 1 Gram Ivpb IVPB 100 mls/hr DAILY ANNA Administration Protocol Nicardipine HCl 200 mls @ 50 mls/hr 09/19/16 10:52 09/20/16 14:46 Cardene Iv Premix IV 75 mls/hr .Q4H PRN Administration TITRATE PER MD ORDER Protocol 5 MG/HR Isosorbide Mononitrate 30 mg 09/15/16 10:00 09/20/16 09:07 Imdur PO Not Given DAILY [facility] Lorazepam 0.5 mg 09/16/16 08:36 09/19/16 21:15 Ativan IVP 0.5 mg Q4H PRN Administration Anxiety Protocol Morphine Sulfate 2 mg 09/14/16 07:39 09/19/16 15:26 Morphine IVP 2 mg Q4H PRN Administration Pain, moderate (4-7) Multi-Ingredient Cream 1 ea 09/17/16 11:01 Hydrocerin Cream TOP BID PRN Dry nasal passages Ondansetron HCl 4 mg 09/19/16 03:45 09/19/16 03:52 Zofran Inj IVP 4 mg Q8H PRN Administration Nausea/Vomiting Pantoprazole Sodium 40 mg 09/18/16 12:45 09/20/16 10:03 Protonix Ec Tab PO 40 mg ACB ANNA Administration Polyethylene Glycol 17 gm 09/20/16 10:08 Miralax PO BID ANNA Senna/Docusate Sodium 1 tab 09/20/16 10:15 09/20/16 12:02 Senokot S 50 Mg-8.6 Mg PO 1 tab DAILY ANNA Administration Sodium Chloride 0 ml 09/19/16 12:30 09/20/16 10:03 [place] Nasal [place] NS 1 spr BID ANNA Administration - Patient Studies Lab Studies: Microbiology Studies 09/15/16 19:20 Blood Culture - Preliminary Blood-Venous NO GROWTH AFTER 4 DAYS 09/15/16 19:00 Blood Culture - Preliminary Blood-Venous NO GROWTH AFTER 4 DAYS Lab Studies 09/20/16 09/20/16 09/20/16 Range/Units 12:20 10:50 10:30 WBC (4.5-11.0) 10^3/ul RBC (3.5-6.1) 10^6/uL Hgb (12.0-16.0) gm/dL Hct (36.0-48.0) % MCV (80.0-105.0) fL MCH (25.0-35.0) pg MCHC (31.0-37.0) g/dl RDW (11.5-14.5) % Plt Count (120.0-450.0) 10^3/uL MPV (7.0-11.0) fl Gran % (50.0-68.0) % Lymph % (Auto) (22.0-35.0) % [place] % (Auto) (1.0-6.0) % Eos % (Auto) (1.5-5.0) % Baso % (Auto) (0.0-3.0) % Gran # (1.4-6.5) Lymph # (1.2-3.4) [place] # (0.1-0.6) Eos # (0.0-0.7) Baso # (0.0-2.0) K/mm3 Sodium (132-148) mmol/L Potassium (3.6-5.0) mmol/L Chloride (95-110) mmol/L Carbon Dioxide (21-33) mmol/L Anion Gap (10-20) BUN (7-21) mg/dL Creatinine (0.5-1.4) mg/dL Est GFR ( Amer) Est GFR (Non-Af Amer) POC Glucose (mg/dL) (65-110) mg/dL Random Glucose (70-110) mg/dL Calcium (8.4-10.5) mg/dL Phosphorus (2.5-4.5) mg/dL Magnesium (1.7-2.2) mg/dL Total Bilirubin (0.2-1.3) mg/dL AST (15-39) U/L ALT (7-56) U/L Alkaline Phosphatase (38-133) U/L Total Protein (5.8-8.3) g/dL Albumin (3.0-4.8) g/dL Globulin gm/dL Albumin/Globulin Ratio (1.1-1.8) Renin (0.25-5.82) ng/mL/h Aldosterone/Renin Ratio (0.9-28.9) Ratio Urine Osmolality 318 (50-645) mosm/kg Ur Random Creatinine 57 mg/dL Ur Random Sodium 19 meq/L Urine Total Volume Cancelled Ur 24 Hour Volume Cancelled Ur Epinephrine 24 Hr Cancelled U Norepinephrine 24 Hr Cancelled Urine Metanephrine Cancelled U Normetanephrine Cancelled U Tot Metanephrine 24h Cancelled Ur Dopamine 24 Hr Cancelled Urine Opiates Screen Positive H (NEGATIVE) Urine Methadone Screen Negative (NEGATIVE) Ur Barbiturates Screen Negative (NEGATIVE) Ur Phencyclidine Scrn Negative (NEGATIVE) Ur Amphetamines Screen Negative (NEGATIVE) U Benzodiazepines Scrn Negative (NEGATIVE) U Oth Cocaine Metabols Negative (NEGATIVE) U Cannabinoids Screen Positive H (NEGATIVE) Hepatitis A IgM Ab (NEGATIVE) Hep Bs Antigen (NEGATIVE) Hep B Core IgM Ab (NEGATIVE) Hepatitis C Antibody (NEGATIVE) 09/20/16 09/19/16 09/18/16 Range/Units 06:00 10:14 06:45 WBC 7.9 (4.5-11.0) 10^3/ul RBC 3.30 L (3.5-6.1) 10^6/uL Hgb 10.0 L (12.0-16.0) gm/dL Hct 28.1 L (36.0-48.0) % MCV 85.2 (80.0-105.0) fL MCH 30.3 (25.0-35.0) pg MCHC 35.6 (31.0-37.0) g/dl RDW 17.2 H (11.5-14.5) % Plt Count 264 (120.0-450.0) 10^3/uL MPV 11.9 H (7.0-11.0) fl Gran % 74.0 H (50.0-68.0) % Lymph % (Auto) 9.4 L (22.0-35.0) % [place] % (Auto) 14.3 H (1.0-6.0) % Eos % (Auto) 2.0 (1.5-5.0) % Baso % (Auto) 0.3 (0.0-3.0) % Gran # 5.85 (1.4-6.5) Lymph # 0.7 L (1.2-3.4) [place] # 1.1 H (0.1-0.6) Eos # 0.2 (0.0-0.7) Baso # 0.02 (0.0-2.0) K/mm3 Sodium 133 (132-148) mmol/L Potassium 3.7 (3.6-5.0) mmol/L Chloride 101 (95-110) mmol/L Carbon Dioxide 20 L (21-33) mmol/L Anion Gap 16 (10-20) BUN 72 H (7-21) mg/dL Creatinine 4.0 H (0.5-1.4) mg/dL Est GFR ( Amer) 14 Est GFR (Non-Af Amer) 12 POC Glucose (mg/dL) 94 (65-110) mg/dL Random Glucose 97 (70-110) mg/dL Calcium 8.4 (8.4-10.5) mg/dL Phosphorus 5.7 H (2.5-4.5) mg/dL Magnesium 2.2 (1.7-2.2) mg/dL Total Bilirubin 0.4 (0.2-1.3) mg/dL AST 113 H (15-39) U/L ALT 292 H (7-56) U/L Alkaline Phosphatase 350 H (38-133) U/L Total Protein 6.1 (5.8-8.3) g/dL Albumin 3.0 (3.0-4.8) g/dL Globulin 3.1 gm/dL Albumin/Globulin Ratio 1.0 L (1.1-1.8) Renin (0.25-5.82) ng/mL/h Aldosterone/Renin Ratio (0.9-28.9) Ratio Urine Osmolality (50-645) mosm/kg Ur Random Creatinine mg/dL Ur Random Sodium meq/L Urine Total Volume Ur 24 Hour Volume Ur Epinephrine 24 Hr U Norepinephrine 24 Hr Urine Metanephrine U Normetanephrine U Tot Metanephrine 24h Ur Dopamine 24 Hr Urine Opiates Screen (NEGATIVE) Urine Methadone Screen (NEGATIVE) Ur Barbiturates Screen (NEGATIVE) Ur Phencyclidine Scrn (NEGATIVE) Ur Amphetamines Screen (NEGATIVE) U Benzodiazepines Scrn (NEGATIVE) U Oth Cocaine Metabols (NEGATIVE) U Cannabinoids Screen (NEGATIVE) Hepatitis A IgM Ab Negative (NEGATIVE) Hep Bs Antigen Negative (NEGATIVE) Hep B Core IgM Ab Negative (NEGATIVE) Hepatitis C Antibody Negative (NEGATIVE) 09/13/16 Range/Units 14:14 WBC (4.5-11.0) 10^3/ul RBC (3.5-6.1) 10^6/uL Hgb (12.0-16.0) gm/dL Hct (36.0-48.0) % MCV (80.0-105.0) fL MCH (25.0-35.0) pg MCHC (31.0-37.0) g/dl RDW (11.5-14.5) % Plt Count (120.0-450.0) 10^3/uL MPV (7.0-11.0) fl Gran % (50.0-68.0) % Lymph % (Auto) (22.0-35.0) % [place] % (Auto) (1.0-6.0) % Eos % (Auto) (1.5-5.0) % Baso % (Auto) (0.0-3.0) % Gran # (1.4-6.5) Lymph # (1.2-3.4) [place] # (0.1-0.6) Eos # (0.0-0.7) Baso # (0.0-2.0) K/mm3 Sodium (132-148) mmol/L Potassium (3.6-5.0) mmol/L Chloride (95-110) mmol/L Carbon Dioxide (21-33) mmol/L Anion Gap (10-20) BUN (7-21) mg/dL Creatinine (0.5-1.4) mg/dL Est GFR ( Amer) Est GFR (Non-Af Amer) POC Glucose (mg/dL) (65-110) mg/dL Random Glucose (70-110) mg/dL Calcium (8.4-10.5) mg/dL Phosphorus (2.5-4.5) mg/dL Magnesium (1.7-2.2) mg/dL Total Bilirubin (0.2-1.3) mg/dL AST (15-39) U/L ALT (7-56) U/L Alkaline Phosphatase (38-133) U/L Total Protein (5.8-8.3) g/dL Albumin (3.0-4.8) g/dL Globulin gm/dL Albumin/Globulin Ratio (1.1-1.8) Renin 19.76 H (0.25-5.82) ng/mL/h Aldosterone/Renin Ratio 0.8 L (0.9-28.9) Ratio Urine Osmolality (50-645) mosm/kg Ur Random Creatinine mg/dL Ur Random Sodium meq/L Urine Total Volume Ur 24 Hour Volume Ur Epinephrine 24 Hr U Norepinephrine 24 Hr Urine Metanephrine U Normetanephrine U Tot Metanephrine 24h Ur Dopamine 24 Hr Urine Opiates Screen (NEGATIVE) Urine Methadone Screen (NEGATIVE) Ur Barbiturates Screen (NEGATIVE) Ur Phencyclidine Scrn (NEGATIVE) Ur Amphetamines Screen (NEGATIVE) U Benzodiazepines Scrn (NEGATIVE) U Oth Cocaine Metabols (NEGATIVE) U Cannabinoids Screen (NEGATIVE) Hepatitis A IgM Ab (NEGATIVE) Hep Bs Antigen (NEGATIVE) Hep B Core IgM Ab (NEGATIVE) Hepatitis C Antibody (NEGATIVE) Laboratory Results - last 24 hr 09/13/16 09/18/16 09/19/16 14:14 06:45 10:14 WBC RBC Hgb Hct MCV MCH MCHC RDW Plt Count MPV Gran % Lymph % (Auto) [place] % (Auto) Eos % (Auto) Baso % (Auto) Gran # Lymph # [place] # Eos # Baso # Sodium Potassium Chloride Carbon Dioxide Anion Gap BUN Creatinine Est GFR ( Amer) Est GFR (Non-Af Amer) POC Glucose (mg/dL) 94 Random Glucose Calcium Phosphorus Magnesium Total Bilirubin AST ALT Alkaline Phosphatase Total Protein Albumin Globulin Albumin/Globulin Ratio Renin 19.76 H Aldosterone/Renin Ratio 0.8 L Urine Osmolality Ur Random Creatinine Ur Random Sodium Urine Total Volume Ur 24 Hour Volume Ur Epinephrine 24 Hr U Norepinephrine 24 Hr Urine Metanephrine U Normetanephrine U Tot Metanephrine 24h Ur Dopamine 24 Hr Urine Opiates Screen Urine Methadone Screen Ur Barbiturates Screen Ur Phencyclidine Scrn Ur Amphetamines Screen U Benzodiazepines Scrn U Oth Cocaine Metabols U Cannabinoids Screen Hepatitis A IgM Ab Negative Hep Bs Antigen Negative Hep B Core IgM Ab Negative Hepatitis C Antibody Negative 09/20/16 09/20/16 09/20/16 06:00 10:30 10:50 WBC 7.9 RBC 3.30 L Hgb 10.0 L Hct 28.1 L MCV 85.2 MCH 30.3 MCHC 35.6 RDW 17.2 H Plt Count 264 MPV 11.9 H Gran % 74.0 H Lymph % (Auto) 9.4 L [place] % (Auto) 14.3 H Eos % (Auto) 2.0 Baso % (Auto) 0.3 Gran # 5.85 Lymph # 0.7 L [place] # 1.1 H Eos # 0.2 Baso # 0.02 Sodium 133 Potassium 3.7 Chloride 101 Carbon Dioxide 20 L Anion Gap 16 BUN 72 H Creatinine 4.0 H Est GFR ( Amer) 14 Est GFR (Non-Af Amer) 12 POC Glucose (mg/dL) Random Glucose 97 Calcium 8.4 Phosphorus 5.7 H Magnesium 2.2 Total Bilirubin 0.4 AST 113 H ALT 292 H Alkaline Phosphatase 350 H Total Protein 6.1 Albumin 3.0 Globulin 3.1 Albumin/Globulin Ratio 1.0 L Renin Aldosterone/Renin Ratio Urine Osmolality 318 Ur Random Creatinine 57 Ur Random Sodium 19 Urine Total Volume Ur 24 Hour Volume Ur Epinephrine 24 Hr U Norepinephrine 24 Hr Urine Metanephrine U Normetanephrine U Tot Metanephrine 24h Ur Dopamine 24 Hr Urine Opiates Screen Positive H Urine Methadone Screen Negative Ur Barbiturates Screen Negative Ur Phencyclidine Scrn Negative Ur Amphetamines Screen Negative U Benzodiazepines Scrn Negative U Oth Cocaine Metabols Negative U Cannabinoids Screen Positive H Hepatitis A IgM Ab Hep Bs Antigen Hep B Core IgM Ab Hepatitis C Antibody 09/20/16 12:20 WBC RBC Hgb Hct MCV MCH MCHC RDW Plt Count MPV Gran % Lymph % (Auto) [place] % (Auto) Eos % (Auto) Baso % (Auto) Gran # Lymph # [place] # Eos # Baso # Sodium Potassium Chloride Carbon Dioxide Anion Gap BUN Creatinine Est GFR ( Amer) Est GFR (Non-Af Amer) POC Glucose (mg/dL) Random Glucose Calcium Phosphorus Magnesium Total Bilirubin AST ALT Alkaline Phosphatase Total Protein Albumin Globulin Albumin/Globulin Ratio Renin Aldosterone/Renin Ratio Urine Osmolality Ur Random Creatinine Ur Random Sodium Urine Total Volume Cancelled Ur 24 Hour Volume Cancelled Ur Epinephrine 24 Hr Cancelled U Norepinephrine 24 Hr Cancelled Urine Metanephrine Cancelled U Normetanephrine Cancelled U Tot Metanephrine 24h Cancelled Ur Dopamine 24 Hr Cancelled Urine Opiates Screen Urine Methadone Screen Ur Barbiturates Screen Ur Phencyclidine Scrn Ur Amphetamines Screen U Benzodiazepines Scrn U Oth Cocaine Metabols U Cannabinoids Screen Hepatitis A IgM Ab Hep Bs Antigen Hep B Core IgM Ab Hepatitis C Antibody Critical Care Progress Note - Nutrition Nutrition: Nutrition Category Date Time Status Heart Healthy Diet [DIET] Diets 09/18/16 Breakfast Ordered Attending/Attestation - Attestation I have personally seen and examined this patient.: Yes I have fully participated in the care of the patient.: Yes I have reviewed all pertinent clinical information: Yes Notes (Text): 09/20/16 16:01 51 y/o F admitted to the ICU once again with Hypertensive Emergency Pt was admitted 1 week prior and now is in need of Cardene drip to keep sbp<180 Pt in addition has been started on multipl ep.o medications including an alpha cordelia today . Continue with calcium cordelia, IMDUR, Doxazosin, Cardne and hydralazine. B cordelia stopped just in case PEHO testing with 24 hr urine shows positive. PHEO workup started with increased metanephrines. Increased RENIN with possible hypovolemia. Could blous with normal saline and keep p.o intake of fluids up. Nephrology and cardiology helping in management. L eye retinal detachment stable per opthamology . Dr Malcolm aware. PRES syndrome stable, no further headaches or symptoms. could repeat MRI brain after 1 week of prior scan. Neurology following closely. Chronic constipation, KUB done- shows constipation - Miralax Senna and colace started. dvt p- SCD off heparin due to nose bleeds and recent HGB drop. S/P tranfusion 2 units PRBC. cc time 55 min
[2016-09-20] MEDS: cefTRIAXone 1 gm 100 ML IVPB SCH (10:00)
[2016-09-20] MEDS: Pantoprazole 40 mg EC Tab PO SCH (10:03)
--- NOTE | 2016-09-20 11:07 | RAD ---
HISTORY: No BM x 13 days COMPARISON: No prior. FINDINGS: BOWEL: Normal. No obstruction. No free air. Mild to moderate constipation BONES: Normal. OTHER FINDINGS: None. IMPRESSION: Constipation
--- NOTE | 2016-09-20 11:50 | NM ---
PROCEDURE: Nuclear Medicine Hepatobiliary Scan HISTORY: RUQ pain, r/o acute cholecystitis COMPARISON: 09/17/2016. Abdominal ultrasound. Summary of findings on the comparison examination: Fatty infiltration of the liver. Gallbladder sludge without cholelithiasis. Nonspecific thickening of gallbladder wall. TECHNIQUE: 5.0 mCi of technetium 99m Mebrofenin was administered intravenously. Planar images of the abdomen were obtained at 5 min intervals to 60 mins. Delayed images were also obtained. FINDINGS: LIVER: Timely and homogenous uptake. COMMON BILE DUCT: identified at 5 mins. GALLBLADDER: identified at 5 mins. SMALL BOWEL: Identified at 15 mins. IMPRESSION: Normal Hepatobiliary Scan. The cystic duct is patent.
[2016-09-20] MEDS: Docusate-Senna 50 mg-8.6 mg Tab PO SCH (12:02)
--- NOTE | 2016-09-20 12:18 | PN ---
DATE: 09/20/2016 The patient's abdominal pain has improved. She is still hypertensive requiring Cardene infusion. PHYSICAL EXAMINATION: VITAL SIGNS: Blood pressure 151/71, heart rate 63, respirations 22. HEENT: Pale conjunctivae. CHEST: Clear. HEART: S1, S2 regular. EXTREMITIES: No edema. LABORATORIES: Today's hemoglobin and hematocrit 10 and 28.1, white count and platelet count are with in normal limit. Today's BUN and creatinine are 72 and 4.0. Troponin yesterday is borderline elevat ed 0.54. I was informed that urinary metanephrines were elevated, but I could not verify that on our computer. ASSESSMENT: 1. Uncontrolled hypertension. 2. Rule out pheochromocytoma. 3. Status post hypertensive encephalopathy. 4. Chronic renal insufficiency. RECOMMENDATIONS: The case was discussed with the gag writer, with the laborer general and with the [place] resident. I recommended to discontinue Coreg and start Cardura at 1 mg p.o. daily. Continue cu rrent clonidine, Colace, aspirin, Imdur, iron sucrose infusion, Norvasc and IV Rocephin. A 24-hour u rinary metanephrine collection has been started. Misael Carson MD cc: [id number] TT: 09/20/2016 12:17:29 Confirmation # [id number] Dictation # [id number] en
--- NOTE | 2016-09-20 12:33 | PN ---
DATE: 09/20/2016 SUBJECTIVE: The patient is lying in bed, comfortable. She denies any abdominal pain. She is tolera ting solid foods. PHYSICAL EXAMINATION: VITAL SIGNS: Reveal she is afebrile, blood pressure 151/71, heart rate 63. ABDOMEN: Obese, soft, nontender. Obstructive series of the abdomen reveals increased stool throughout the colon. LABORATORY DATA: Reveal white blood cell count 7.9, hemoglobin 10. Chemistries reveal BUN 72, creat inine 4, AST is down to 113, ALT is stable at 292, alkaline phosphatase is down to 350. IMPRESSION: A 51-year-old female with accelerated hypertension, acute on chronic renal failure, elev ated liver enzymes, history of alcohol use, chronic intermittent abdominal pain, constipation. Her l iver enzymes are again trending downward. RECOMMENDATIONS: 1. Continue supportive treatment. 2. Note her troponin is elevated at 0.54, must rule out non-ST elevation myocardial infarction. 3. The patient is on Colace and MiraLax, which should be continued for constipation. Carlos Moran MD cc: [id number] TT: 09/20/2016 12:33:25 Confirmation # [id number] Dictation # [id number] en
--- NOTE | 2016-09-20 12:47 | CP.PCM.PN ---
<Luciano Mustafa - Last Filed: 09/20/16 12:42> Subjective - Date & Time of Evaluation Date of Evaluation: 09/20/16 Time of Evaluation: 07:25 - Subjective Subjective: PGY-1 Medicine Progress Note for Dr. Linda Patient seen and examined at bedside. No acute event overnight. Patient resting in bed comfortably. Patient has no complaints today. Patient is tolerating diet and having BM. Patient is on Nicardipine drip. Denied fever/chills, cp, sob, palpitations, n/v/d, incontinence, numbness/tingling. Objective - Vital Signs/Intake and Output Vital Signs (last 24 hours): Temp Pulse Resp BP Pulse Ox 98.4 F 63 28 H 148/76 99 09/20/16 12:00 09/20/16 12:15 09/20/16 12:15 09/20/16 12:15 09/20/16 12:15 Intake and Output: 09/20/16 09/20/16 06:59 18:59 Intake Total 175 Output Total 500 350 Balance -325 -350 - Medications Medications: Current Medications Amlodipine Besylate (Norvasc) 10 mg PO DAILY [facility] Last Admin: 09/20/16 09:07 Dose: Not Given Aspirin (Ecotrin) 81 mg PO DAILY [facility] Last Admin: 09/20/16 09:06 Dose: Not Given Clonidine HCl (Catapres) 0.3 mg PO Q8 [facility] Last Admin: 09/20/16 07:00 Dose: 0.3 mg Docusate Sodium (Colace) 100 mg PO DAILY [facility] Last Admin: 09/20/16 09:06 Dose: Not Given Doxazosin Mesylate (Cardura) 1 mg PO 2200 [facility] Hydralazine HCl (Apresoline) 50 mg PO Q8 [facility] Last Admin: 09/20/16 06:06 Dose: 50 mg Iron Sucrose 200 mg/ Sodium (Chloride) 110 mls @ 110 mls/hr IVPB DAILY [facility] Stop: 09/21/16 10:01 Last Admin: 09/20/16 10:00 Dose: Not Given Ceftriaxone Sodium (Rocephin 1 Gram Ivpb) 100 mls @ 100 mls/hr IVPB DAILY [facility] PRN Reason: Protocol Last Admin: 09/20/16 10:00 Dose: 100 mls/hr Nicardipine HCl (Cardene Iv Premix) 200 mls @ 50 mls/hr IV .Q4H PRN; Protocol; 5 MG/HR PRN Reason: TITRATE PER MD ORDER Last Admin: 09/20/16 08:14 Dose: 50 mls/hr Isosorbide Mononitrate (Imdur) 30 mg PO DAILY [facility] Last Admin: 09/20/16 09:07 Dose: Not Given Lorazepam (Ativan) 0.5 mg IVP Q4H PRN; Protocol PRN Reason: Anxiety Last Admin: 09/19/16 21:15 Dose: 0.5 mg Morphine Sulfate (Morphine) 2 mg IVP Q4H PRN PRN Reason: Pain, moderate (4-7) Last Admin: 09/19/16 15:26 Dose: 2 mg Multi-Ingredient Cream (Hydrocerin Cream) 1 ea TOP BID PRN PRN Reason: Dry nasal passages Ondansetron HCl (Zofran Inj) 4 mg IVP Q8H PRN PRN Reason: Nausea/Vomiting Last Admin: 09/19/16 03:52 Dose: 4 mg Pantoprazole Sodium (Protonix Ec Tab) 40 mg PO ACB [facility] Last Admin: 09/20/16 10:03 Dose: 40 mg Polyethylene Glycol (Miralax) 17 gm PO BID [facility] Senna/Docusate Sodium (Senokot S 50 Mg-8.6 Mg) 1 tab PO DAILY [facility] Last Admin: 09/20/16 12:02 Dose: 1 tab Sodium Chloride (Bladen Nasal [place]) 0 ml NS BID [facility] Last Admin: 09/20/16 10:03 Dose: 1 spr - Labs Labs: 09/20/16 06:00 09/20/16 06:00 PT 11.7 Seconds (9.9-11.8) 09/19/16 11:50 INR 1.08 (0.93-1.08) 09/19/16 11:50 APTT 26.4 Seconds (23.7-30.8) 09/13/16 10:30 - Constitutional Appears: No Acute Distress - Head Exam Head Exam: ATRAUMATIC, NORMOCEPHALIC - Eye Exam Eye Exam: EOMI, Normal appearance Pupil Exam: PERRL - ENT Exam ENT Exam: Mucous Membranes Moist - Neck Exam Neck Exam: Normal Inspection - Respiratory Exam Respiratory Exam: Clear to Ausculation Bilateral, NORMAL BREATHING PATTERN - Cardiovascular Exam Cardiovascular Exam: REGULAR RHYTHM, +S1, +S2 - GI/Abdominal Exam GI & Abdominal Exam: Soft, Normal Bowel Sounds. absent: Distended, Firm, Guarding, Tenderness, Rebound - Extremities Exam Extremities Exam: Normal Capillary Refill - Back Exam Back Exam: absent: CVA tenderness (L), CVA tenderness (R) - Neurological Exam Neurological Exam: Alert, Awake, CN II-XII Intact, Oriented x3 - Psychiatric Exam Psychiatric exam: Normal Affect, Normal Mood - Skin Skin Exam: Dry, Intact, Normal Color, Warm Assessment and Plan - Assessment and Plan (Free Text) Plan: 51 F with history of HTN, non compliant with medications at home, sickle cell trait, glaucoma, marijuana use, former alcohol abuser who presented with hypertensive emergency and found to have dehydration, hyponatremia, hypokalemia , elevated troponin, CHF due to systolic dysfunction (EF 35-40%), acute kidney injury, sepsis secondary to UTI and PRES syndrome. 1. Hypertensive Emergency ICU ECHO: LV normal size, mild concentric LVH, mild-mod impaired systolic function EF35-40, mild-mod hypokinesis apical anterior wall, mild mitral regurg, trace aortic regurg, mild tricuspid regurg Renal US: Medical renal disease, 1.6 cm simple cyst on upper pole of r kidney ( see full report). MRI Brain: extensice signal abnormality in brainstem and basal ganglia bilaterally, particularly thalami, suspicious for edema. Extensive white matter signal abnormality in cerebral hemispheresbilaterally. Uncertain etiology, could be hypertensive/infectious/inflammatory encephalopathy extensivve demyelinating disease, toxic insult, or underlying metabolic abnormality (see full report). CT head: extensive hypodensity in the perventricular white matter, sheyla, and cerebellar white matter. Could represent vasogenic edema related to HTN or chronic microvascular disease (see full report). CT chest: mild cardiomegaly, very mild emphysematous changes in lung apices bilaterally (see full report). CT abd/pelvos: Right ovarian cyst (see full report). Carotid duplex: bilateral 20-39% stenoses of proximal ICA, antegrade flow in both vertebral arteries (see full report). ASA 81 mg PO daily Norvasc 10 mg PO daily Coreg 6.25 PO BID Hydralazine 25 mg PO TID Clonidine 0.1 mg PO Q4H PRN Isosorbide Mononitrate 30 mg PO daily Nicardipine drip Nephro consult, Dr. Mcgarry, help appreciated Opthlamology consult, Dr. Bae, help appreciated Cardio consult, Dr. Carson, help appreciated Cardiac enzymes 0.20-->0.28-->1.98-->1.43-->2.43-->2.24 Urine metanephrines elevated, suspicious for Pheochromocytoma, needs confirmatory test f/u daily labs Heart healthy diet 2. Chest Pain ECHO: LV normal size, mild concentric LVH, mild-mod impaired systolic function EF35-40, mild-mod hypokinesis apical anterior wall, mild mitral regurg, trace aortic regurg, mild tricuspid regurg Carotid duplex: bilateral 20-39% stenoses of proximal ICA, antegrade flow in both vertebral arteries (see full report). ASA 81 mg PO daily Norvasc 10 mg PO daily Coreg 6.25 PO BID Hydralazine 25 mg PO TID Clonidine 0.1 mg PO Q4H PRN Isosorbide Mononitrate 30 mg PO daily Nicardipine drip Lipitor 20 mg PO HS Nephro consult, Dr. Mcgarry, help appreciated Opthlamology consult, Dr. Bae, help appreciated Cardio consult, Dr. Carson, help appreciated Cardiac enzymes 0.20-->0.28-->1.98-->1.43-->2.43-->2.24 f/u daily labs BNP 19936 3. ESTEFANI Bun/Cr: 72/4.0 Renal US: Medical renal disease, 1.6 cm simple cyst on upper pole of r kidney ( see full report). Nephrology consult, Dr. Rosen, help appreciated Urine metanephrines elevated, suspicious for Pheochromocytoma, needs confirmatory test 4. Dyspnea ECHO: LV normal size, mild concentric LVH, mild-mod impaired systolic function EF35-40, mild-mod hypokinesis apical anterior wall, mild mitral regurg, trace aortic regurg, mild tricuspid regurg Carotid duplex: bilateral 20-39% stenoses of proximal ICA, antegrade flow in both vertebral arteries (see full report). ASA 81 mg PO daily Norvasc 5 mg PO daily Nicardipine drip Nephro consult, Dr. Mcgarry, help appreciated Opthlamology consult, Dr. Bae, help appreciated Cardio consult, Dr. Carson, help appreciated Cardiac enzymes 0.20-->0.28-->1.98-->1.43-->2.43-->2.24 f/u daily labs BNP [address] abd/pelvis revealed 3.5 x 5 cm R ovarian cyst CHIEF COMMUNICATIONS OFFICER consult, Dr. Meeks, help appreciated 6. Anemia Iron sucrose 200 mg IVPB daily transferred 2 units PRBC yesterday 7. Glaucoma Tropicamide 1% 1 drop OU 8. Epitaxis Hydrocerin cream PRN Bladen nasal spray PRN 9. Abnormal LFTs GI consult, Dr. Moran, help appreciated Surgery consulted, Dr. Zamarripa, help appreciated Abdominal US: fatty infilatration of the liver, gallbladder sludge without cholelithiasis, nonspecific thickening of gallbladder wall [see full report] HIDA scan: Normal ABXR: constipation 10. UTI UA showed blood and elevated leukocyte esterase Urine culture grew E. Coli Rocephin 1 gm IVPB daily 11. Prophylactic measures Pepcid 20 mg PO daily Colace 100 mg PO daily Miralax 17 gm PO daily PRN <[place] Linda - Last Filed: 09/21/16 15:57> Objective - Vital Signs/Intake and Output Vital Signs (last 24 hours): Temp Pulse Resp BP Pulse Ox 97.6 F 63 22 151/87 H 98 09/21/16 12:00 09/21/16 15:06 09/21/16 15:06 09/21/16 15:01 09/21/16 15:01 Intake and Output: 09/21/16 09/21/16 06:59 18:59 Intake Total 322 Output Total 1000 Balance -678 - Medications Medications: Current Medications Amlodipine Besylate (Norvasc) 10 mg PO DAILY [facility] Last Admin: 09/21/16 09:01 Dose: 10 mg Aspirin (Ecotrin) 81 mg PO DAILY [facility] Last Admin: 09/21/16 09:01 Dose: 81 mg Clonidine HCl (Catapres) 0.3 mg PO Q8 [facility] Last Admin: 09/21/16 13:20 Dose: 0.3 mg Docusate Sodium (Colace) 100 mg PO DAILY [facility] Last Admin: 09/21/16 09:01 Dose: 100 mg Doxazosin Mesylate (Cardura) 2 mg PO HS [facility] Hydralazine HCl (Apresoline) 50 mg PO Q8 [facility] Last Admin: 09/21/16 13:19 Dose: 50 mg Nicardipine HCl (Cardene Iv Premix) 200 mls @ 50 mls/hr IV .Q4H PRN; Protocol; 5 MG/HR PRN Reason: TITRATE PER MD ORDER Last Titration: 09/21/16 08:00 Dose: 5 mg/hr Isosorbide Mononitrate (Imdur) 60 mg PO DAILY [facility] Last Admin: 09/21/16 13:19 Dose: 60 mg Lorazepam (Ativan) 0.5 mg IVP Q4H PRN; Protocol PRN Reason: Anxiety Last Admin: 09/20/16 19:11 Dose: 0.5 mg Morphine Sulfate (Morphine) 2 mg IVP Q4H PRN PRN Reason: Pain, moderate (4-7) Last Admin: 09/21/16 09:51 Dose: 2 mg Multi-Ingredient Cream (Hydrocerin Cream) 1 ea TOP BID PRN PRN Reason: Dry nasal passages Ondansetron HCl (Zofran Inj) 4 mg IVP Q8H PRN PRN Reason: Nausea/Vomiting Last Admin: 09/19/16 03:52 Dose: 4 mg Pantoprazole Sodium (Protonix Ec Tab) 40 mg PO ACB [facility] Last Admin: 09/21/16 09:02 Dose: 40 mg Polyethylene Glycol (Miralax) 17 gm PO BID [facility] Last Admin: 09/21/16 09:01 Dose: 17 gm Senna/Docusate Sodium (Senokot S 50 Mg-8.6 Mg) 1 tab PO DAILY [facility] Last Admin: 09/21/16 09:02 Dose: 1 tab Sodium Chloride (Bladen Nasal [place]) 0 ml NS BID [facility] Last Admin: 09/21/16 09:03 Dose: 1 spr - Labs Labs: 09/21/16 06:00 09/21/16 06:00 PT 11.7 Seconds (9.9-11.8) 09/19/16 11:50 INR 1.08 (0.93-1.08) 09/19/16 11:50 APTT 26.4 Seconds (23.7-30.8) 09/13/16 10:30 Assessment and Plan - Assessment and Plan (Free Text) Assessment: Attending note; I have seen and examined the patient with the resident in CCU. Patient is a 51 year old female with history of HTN, non compliant with medications at home, sickle cell trait, glaucoma, marijuana use, former alcohol abuser, OTC motrin use for headache on regular basis who presented with hypertensive emergency and found to have dehydration, hyponatremia, hypokalemia , elevated troponin, CHF due to systolic dysfunction (EF 35-40%), acute kidney injury, sepsis secondary to UTI and PRES syndrome. HTN; on cardene drip. po medications adjusted, BP is improving slowly. elevated metanephrine levels. 24-hour urine metanephrine is pending. Started on alpha cordelia. continue coreg,Prazosin, hydralazine, clonidine, Imdur and Norvasc. PRES syndrome: Improved.neurology evaluation appreciated. Case discussed with cardiology in detail. Acute on chronic kidney disease. Baseline creatinine is not known. Follow-up creatinine level. Nephrology follow-up appreciated. abdominal pain is improving. Tolerating diet. Abdominal ultrasound showed gallbladder sludge and negative Lovell sign.HIDA is negative. Elevated LFTs; improving. GI evaluation appreciated. ovarian cyst; needs follow-up as an outpatient with [facility] [employer]. anemia; patient got 2 units PRBC transfusion. hemoglobin is stable at 10. No active bleeding. Possible retinal detachment; needs ophthalmology follow-up as outpatient. Upon discharge patient will follow up with Dr Evita Swann. Attending/Attestation - Attestation I have personally seen and examined this patient.: Yes I have fully participated in the care of the patient.: Yes I have reviewed all pertinent clinical information, including history, physical exam and plan: Yes
--- NOTE | 2016-09-20 13:26 | PN ---
DATE: 09/20/2016 A 51-year-old female with past medical history of hypertension, admitted with hypertensive emergency, acute renal failure. Findings consistent with PRES syndrome. The patient today is feeling well. Denies having any chest pain, abdominal pain currently; however, earlier this morning reported sensation of nose bleeding, although no overt bleed. PHYSICAL EXAMINATION: VITAL SIGNS: Blood pressure this morning at the time of examination 184/96, heart rate of 64, respirations of 23, O2 sat 100% on room air. GENERAL: No apparent distress, alert, able to answer questions coherently. HEENT: Moist mucous membranes. CHEST: Clear to auscultation bilaterally. HEART: S1, S2 positive. No murmurs, no gallops, no rubs. JVD elevated to about 5 cm above clavicle. ABDOMEN: Soft, nondistended. Moderate epigastric tenderness to palpation. EXTREMITIES: Mild pitting lower leg edema. ASSESSMENT: 1. Hypertensive emergency. Markedly increased blood pressure readings yesterday after previously being controlled. Today, again with episodic increase in blood pressure necessitating resumption of nicardipine drip. Blood pressures had reached 200/100. Case discussed with critical care team and consulting promotional representative. The patient currently, as of this morning, is on amlodipine 10 mg daily, clonidine 0.3 mg q. 8 hours, Coreg 12.5 mg b.i.d., Imdur 30 mg daily and hydralazine 50 mg q. 8 hours. Due to concern for possible pheochromocytoma, Coreg discontinued and doxazosin started at 1 mg daily. 2. Malignant hypertension. Episodic marked increases in blood pressure with the patient giving symptoms possibly consistent with spells seen with pheochromocytoma. Plasma metanephrines elevated to just under 4 tijmes upper limit of normal. Currently collecting 24-hour urine sample for metanephrines. Aldosterone level mildly elevated, but in the setting of elevated rennin levels this is likely due to some element of volume depletion, as the patient has had urine sodium less than 5 on several occasions. 3. Acute renal failure on chronic kidney disease as evidenced by echogenic kidneys on ultrasound. Acute renal failure likely secondary to malignant hypertension and worsened by the need to control blood pressure astringently in the setting of posterior reversible encephalopathy syndrome (PRES). Needs further workup for cause of chronic kidney disease as urine protein was 2+, but this was in the setting of hypertensive emergency. Will wait for blood pressure to be better controlled before repeating urine protein, creatinine. Serologic workup sent by primary team for possible glomerulonephritis, although a rapidly progressive glomerulonephritis is unlikely given stable serum creatinine. 4. Hyponatremia, mild, likely secondary to some degree of volume depletion. 5. Anemia secondary to marked iron deficiency, status post 2 units of packed red blood cells yesterday. Need to collect stool for occult blood. 6. Urinary tract infection. On ceftriaxone. No renal dose adjustment needed. Shane Rosen MD cc: [id number] TT: 09/20/2016 13:25:42 Confirmation # [id number] Dictation # [id number] [id number]
[2016-09-20] MEDS ORDERED: Potassium Chloride 20 mEq ER Tab PO ONE (15:21)
--- NOTE | 2016-09-20 15:53 | CP.PCM.PN ---
Subjective - Date & Time of Evaluation Date of Evaluation: 09/20/16 Time of Evaluation: 08:50 - Subjective Subjective: Comfortable in bed, not in distress, no fevers overnight. Still with high blood pressure. Objective - Vital Signs/Intake and Output Vital Signs (last 24 hours): Temp Pulse Resp BP Pulse Ox 98.4 F 66 27 H 162/87 H 99 09/20/16 12:00 09/20/16 14:44 09/20/16 14:00 09/20/16 14:44 09/20/16 14:00 Intake and Output: 09/20/16 09/20/16 06:59 18:59 Intake Total 175 Output Total 500 350 Balance -325 -350 - Medications Medications: Current Medications Amlodipine Besylate (Norvasc) 10 mg PO DAILY [facility] Last Admin: 09/20/16 09:07 Dose: Not Given Aspirin (Ecotrin) 81 mg PO DAILY [facility] Last Admin: 09/20/16 09:06 Dose: Not Given Clonidine HCl (Catapres) 0.3 mg PO Q8 [facility] Last Admin: 09/20/16 14:43 Dose: 0.3 mg Docusate Sodium (Colace) 100 mg PO DAILY [facility] Last Admin: 09/20/16 09:06 Dose: Not Given Doxazosin Mesylate (Cardura) 1 mg PO 2200 [facility] Hydralazine HCl (Apresoline) 50 mg PO Q8 [facility] Last Admin: 09/20/16 14:44 Dose: 50 mg Iron Sucrose 200 mg/ Sodium (Chloride) 110 mls @ 110 mls/hr IVPB DAILY [facility] Stop: 09/21/16 10:01 Last Admin: 09/20/16 10:00 Dose: Not Given Ceftriaxone Sodium (Rocephin 1 Gram Ivpb) 100 mls @ 100 mls/hr IVPB DAILY [facility] PRN Reason: Protocol Last Admin: 09/20/16 10:00 Dose: 100 mls/hr Nicardipine HCl (Cardene Iv Premix) 200 mls @ 50 mls/hr IV .Q4H PRN; Protocol; 5 MG/HR PRN Reason: TITRATE PER MD ORDER Last Admin: 09/20/16 14:46 Dose: 75 mls/hr Isosorbide Mononitrate (Imdur) 30 mg PO DAILY [facility] Last Admin: 09/20/16 09:07 Dose: Not Given Lorazepam (Ativan) 0.5 mg IVP Q4H PRN; Protocol PRN Reason: Anxiety Last Admin: 09/19/16 21:15 Dose: 0.5 mg Morphine Sulfate (Morphine) 2 mg IVP Q4H PRN PRN Reason: Pain, moderate (4-7) Last Admin: 09/19/16 15:26 Dose: 2 mg Multi-Ingredient Cream (Hydrocerin Cream) 1 ea TOP BID PRN PRN Reason: Dry nasal passages Ondansetron HCl (Zofran Inj) 4 mg IVP Q8H PRN PRN Reason: Nausea/Vomiting Last Admin: 09/19/16 03:52 Dose: 4 mg Pantoprazole Sodium (Protonix Ec Tab) 40 mg PO ACB [facility] Last Admin: 09/20/16 10:03 Dose: 40 mg Polyethylene Glycol (Miralax) 17 gm PO BID [facility] Senna/Docusate Sodium (Senokot S 50 Mg-8.6 Mg) 1 tab PO DAILY [facility] Last Admin: 09/20/16 12:02 Dose: 1 tab Sodium Chloride ([place] Nasal [place]) 0 ml NS BID [facility] Last Admin: 09/20/16 10:03 Dose: 1 spr - Labs Labs: 09/20/16 06:00 09/20/16 06:00 PT 11.7 Seconds (9.9-11.8) 09/19/16 11:50 INR 1.08 (0.93-1.08) 09/19/16 11:50 APTT 26.4 Seconds (23.7-30.8) 09/13/16 10:30 - Constitutional Appears: Non-toxic, No Acute Distress - Head Exam Head Exam: NORMAL INSPECTION - Respiratory Exam Respiratory Exam: Decreased Breath Sounds - Cardiovascular Exam Cardiovascular Exam: +S1, +S2 - GI/Abdominal Exam GI & Abdominal Exam: Soft. absent: Tenderness Assessment and Plan - Assessment and Plan (Free Text) Plan: Assessment Systemic Inflammatory Response Syndrome probably secondary to hypertensive urgency / emergency with associated Posterior Reversible Encephalopathy Syndrome (PRES) and acute renal failure sepsis from urinary tract infection with E. coli; patient is slowly improving Coagulase negative Staph in one blood cx bottle, most likely contamination HTN, poorly-controlled history of glaucoma history of cataracts sickle cell trait S/P Caesarian section obesity with BMI 31 Plan continue Rocephin (day 7) to complete a 5-7 day course; will d/c antibiotics after today Will continue to monitor clinically
[2016-09-20] MEDS: POLYETHYLENE GLYCOL 3350 17 GM/Dose PACKET PO SCH (17:36)
[2016-09-21] MEDS: Nicardipine 20 MG/200 ML 200 ML IV PRN ×2 (05:30→23:21)
[2016-09-21 06:29] LABS: ADD MANUAL DIFF? NO
[2016-09-21 06:49] LABS: BASO # 0.02 K/mm3 (0.0-2.0); BASO % 0.3 % (0.0-3.0); EOS # 0.1 (0.0-0.7); GRAN # 4.92 (1.4-6.5); GRAN % 71.4 % (50.0-68.0); HEMATOCRIT 28.3 % (36.0-48.0); LYMPH # 1.1 (1.2-3.4); LYMPH % 16.4 % (22.0-35.0); MEAN CELL VOLUME 84.7 fL (80.0-105.0); MEAN CORPUSCULAR HEMOGLOBIN 29.9 pg (25.0-35.0); MEAN CORPUSCULAR HGB CONC 35.3 g/dl (31.0-37.0); MEAN PLATELET VOLUME 11.8 fl (7.0-11.0); MONO # 0.7 (0.1-0.6); MONO % 9.9 % (1.0-6.0); PLATELET COUNT 290 10^3/uL (120.0-450.0); WHITE BLOOD COUNT 6.9 10^3/ul (4.5-11.0)
[2016-09-21 07:06] LABS: ALB/GLOB RATIO 0.9 (1.1-1.8); BILIRUBIN,TOTAL 0.3 mg/dL (0.2-1.3); CALCIUM 8.5 mg/dL (8.4-10.5); MAGNESIUM 2.2 mg/dL (1.7-2.2); PHOSPHOROUS 4.9 mg/dL (2.5-4.5); TOTAL PROTEIN 6.3 g/dL (5.8-8.3)
[2016-09-21] MEDS: POLYETHYLENE GLYCOL 3350 17 GM/Dose PACKET PO SCH ×2 (09:01→17:16)
[2016-09-21] MEDS: Docusate-Senna 50 mg-8.6 mg Tab PO SCH (09:02)
[2016-09-21] MEDS: Pantoprazole 40 mg EC Tab PO SCH (09:02)
[2016-09-21] MEDS: cefTRIAXone 1 gm 100 ML IVPB SCH (09:02)
--- NOTE | 2016-09-21 09:31 | CP.PCM.PN ---
<Aniyah Mustafay - Last Filed: 09/21/16 14:01> Subjective - Date & Time of Evaluation Date of Evaluation: 09/21/16 Time of Evaluation: 07:25 - Subjective Subjective: PGY-1 Medicine Progress Note for Dr. Linda Patient seen and examined at bedside. No acute event overnight. Patient sitting up in bed in mild distress. Patient is anxious and tearful. She is complaining of excruciating epigastric pain. Her BP is ranging 150's - 160's systolic pressure. CXR, troponins, and EKG ordered this morning. No change from prior studies for CXR and EKG. Troponins continue to trend down. Patient is still on the nicardipine drip. Denied syncope, vertigo, dizziness/lightheadedness, weakness, fever/chills, palpitations, n/v/d, consitpation, incontinence, numbness/tingling. Objective - Vital Signs/Intake and Output Vital Signs (last 24 hours): Temp Pulse Resp BP Pulse Ox 98.1 F 67 20 156/85 H 100 09/21/16 08:00 09/21/16 09:01 09/21/16 08:00 09/21/16 09:01 09/21/16 08:00 Intake and Output: 09/21/16 09/21/16 06:59 18:59 Intake Total 322 Output Total 1000 Balance -678 - Medications Medications: Current Medications Amlodipine Besylate (Norvasc) 10 mg PO DAILY [facility] Last Admin: 09/21/16 09:01 Dose: 10 mg Aspirin (Ecotrin) 81 mg PO DAILY [facility] Last Admin: 09/21/16 09:01 Dose: 81 mg Clonidine HCl (Catapres) 0.3 mg PO Q8 [facility] Last Admin: 09/21/16 06:01 Dose: 0.3 mg Docusate Sodium (Colace) 100 mg PO DAILY [facility] Last Admin: 09/21/16 09:01 Dose: 100 mg Doxazosin Mesylate (Cardura) 1 mg PO 2200 [facility] Last Admin: 09/20/16 22:06 Dose: 1 mg Hydralazine HCl (Apresoline) 50 mg PO Q8 [facility] Last Admin: 09/21/16 06:00 Dose: 50 mg Iron Sucrose 200 mg/ Sodium (Chloride) 110 mls @ 110 mls/hr IVPB DAILY [facility] Stop: 09/21/16 10:01 Last Admin: 09/20/16 10:00 Dose: Not Given Ceftriaxone Sodium (Rocephin 1 Gram Ivpb) 100 mls @ 100 mls/hr IVPB DAILY [facility] PRN Reason: Protocol Last Admin: 09/21/16 09:02 Dose: 100 mls/hr Nicardipine HCl (Cardene Iv Premix) 200 mls @ 50 mls/hr IV .Q4H PRN; Protocol; 5 MG/HR PRN Reason: TITRATE PER MD ORDER Last Titration: 09/21/16 08:00 Dose: 5 mg/hr Isosorbide Mononitrate (Imdur) 30 mg PO DAILY [facility] Last Admin: 09/21/16 09:01 Dose: 30 mg Lorazepam (Ativan) 0.5 mg IVP Q4H PRN; Protocol PRN Reason: Anxiety Last Admin: 09/20/16 19:11 Dose: 0.5 mg Morphine Sulfate (Morphine) 2 mg IVP Q4H PRN PRN Reason: Pain, moderate (4-7) Last Admin: 09/19/16 15:26 Dose: 2 mg Multi-Ingredient Cream (Hydrocerin Cream) 1 ea TOP BID PRN PRN Reason: Dry nasal passages Ondansetron HCl (Zofran Inj) 4 mg IVP Q8H PRN PRN Reason: Nausea/Vomiting Last Admin: 09/19/16 03:52 Dose: 4 mg Pantoprazole Sodium (Protonix Ec Tab) 40 mg PO ACB [facility] Last Admin: 09/21/16 09:02 Dose: 40 mg Polyethylene Glycol (Miralax) 17 gm PO BID [facility] Last Admin: 09/21/16 09:01 Dose: 17 gm Senna/Docusate Sodium (Senokot S 50 Mg-8.6 Mg) 1 tab PO DAILY [facility] Last Admin: 09/21/16 09:02 Dose: 1 tab Sodium Chloride (Cooke Nasal [place]) 0 ml NS BID [facility] Last Admin: 09/21/16 09:03 Dose: 1 spr - Labs Labs: 09/21/16 06:00 09/21/16 06:00 PT 11.7 Seconds (9.9-11.8) 09/19/16 11:50 INR 1.08 (0.93-1.08) 09/19/16 11:50 APTT 26.4 Seconds (23.7-30.8) 09/13/16 10:30 - Constitutional Appears: In Acute Distress - Head Exam Head Exam: ATRAUMATIC, NORMOCEPHALIC - Eye Exam Eye Exam: EOMI, Normal appearance Pupil Exam: PERRL Additional comments: L vision is impaired - ENT Exam ENT Exam: Mucous Membranes Moist - Neck Exam Neck Exam: Full ROM, Normal Inspection - Respiratory Exam Respiratory Exam: Clear to Ausculation Bilateral, NORMAL BREATHING PATTERN - Cardiovascular Exam Cardiovascular Exam: RRR, +S1, +S2 - GI/Abdominal Exam GI & Abdominal Exam: Soft, Tenderness (epigastic), Normal Bowel Sounds - Extremities Exam Extremities Exam: Normal Capillary Refill. absent: Pedal Edema - Back Exam Back Exam: absent: CVA tenderness (L), CVA tenderness (R) - Neurological Exam Neurological Exam: Alert, Awake, CN II-XII Intact, Oriented x3 - Psychiatric Exam Psychiatric exam: Agitated - Skin Skin Exam: Dry, Intact, Normal Color, Warm Assessment and Plan - Assessment and Plan (Free Text) Plan: 51 F with history of HTN, non compliant with medications at home, sickle cell trait, glaucoma, marijuana use, former alcohol abuser who presented with hypertensive emergency and found to have dehydration, hyponatremia, hypokalemia , elevated troponin, CHF due to systolic dysfunction (EF 35-40%), acute kidney injury, sepsis secondary to UTI and PRES syndrome. 1. Hypertensive Emergency ICU ECHO: LV normal size, mild concentric LVH, mild-mod impaired systolic function EF35-40, mild-mod hypokinesis apical anterior wall, mild mitral regurg, trace aortic regurg, mild tricuspid regurg Renal US: Medical renal disease, 1.6 cm simple cyst on upper pole of r kidney ( see full report). MRI Brain: extensice signal abnormality in brainstem and basal ganglia bilaterally, particularly thalami, suspicious for edema. Extensive white matter signal abnormality in cerebral hemispheresbilaterally. Uncertain etiology, could be hypertensive/infectious/inflammatory encephalopathy extensivve demyelinating disease, toxic insult, or underlying metabolic abnormality (see full report). CT head: extensive hypodensity in the perventricular white matter, sheyla, and cerebellar white matter. Could represent vasogenic edema related to HTN or chronic microvascular disease (see full report). CT chest: mild cardiomegaly, very mild emphysematous changes in lung apices bilaterally (see full report). CT abd/pelvos: Right ovarian cyst (see full report). Carotid duplex: bilateral 20-39% stenoses of proximal ICA, antegrade flow in both vertebral arteries (see full report). ASA 81 mg PO daily Norvasc 10 mg PO daily Coreg 6.25 PO BID Hydralazine 25 mg PO TID Clonidine 0.1 mg PO Q4H PRN Isosorbide Mononitrate 30 mg PO daily Nicardipine drip Nephro consult, Dr. Mcgarry, help appreciated Opthlamology consult, Dr. Bae, help appreciated Cardio consult, Dr. Carson, help appreciated Cardiac enzymes 0.20-->0.28-->1.98-->1.43-->2.43-->2.24-->0.54-->0.21 f/u daily labs Urine metanephrines elevated, suspicious for Pheochromocytoma, needs confirmatory test Heart healthy diet 2. Chest Pain CXR and EKG repeated this AM with no change from prior studies ECHO: LV normal size, mild concentric LVH, mild-mod impaired systolic function EF35-40, mild-mod hypokinesis apical anterior wall, mild mitral regurg, trace aortic regurg, mild tricuspid regurg Carotid duplex: bilateral 20-39% stenoses of proximal ICA, antegrade flow in both vertebral arteries (see full report). ASA 81 mg PO daily Norvasc 10 mg PO daily Coreg 6.25 PO BID Hydralazine 25 mg PO TID Clonidine 0.1 mg PO Q4H PRN Isosorbide Mononitrate 30 mg PO daily Nicardipine drip Lipitor 20 mg PO HS Nephro consult, Dr. Mcgarry, help appreciated Opthlamology consult, Dr. Bae, help appreciated Cardio consult, Dr. Carson, help appreciated Cardiac enzymes 0.20-->0.28-->1.98-->1.43-->2.43-->2.24-->0.54-->0.21 f/u daily labs BNP [id number] 3. ESTEFANI Bun/Cr: 72/3.6 Renal US: Medical renal disease, 1.6 cm simple cyst on upper pole of r kidney ( see full report). Nephrology consult, Dr. Rosen, help appreciated Urine metanephrines elevated, suspicious for Pheochromocytoma, needs confirmatory test 4. Dyspnea ECHO: LV normal size, mild concentric LVH, mild-mod impaired systolic function EF35-40, mild-mod hypokinesis apical anterior wall, mild mitral regurg, trace aortic regurg, mild tricuspid regurg Carotid duplex: bilateral 20-39% stenoses of proximal ICA, antegrade flow in both vertebral arteries (see full report). ASA 81 mg PO daily Norvasc 5 mg PO daily Nicardipine drip Nephro consult, Dr. Mcgarry, help appreciated Opthlamology consult, Dr. Bae, help appreciated Cardio consult, Dr. Carson, help appreciated Cardiac enzymes 0.20-->0.28-->1.98-->1.43-->2.43-->2.24-->0.54-->0.21 f/u daily labs BNP 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 Meeks, help appreciated 6. Anemia Iron sucrose 200 mg IVPB daily transferred 2 units PRBC yesterday 7. Glaucoma Tropicamide 1% 1 drop OU 8. Epitaxis Hydrocerin cream PRN [place] nasal spray PRN 9. Abnormal LFTs GI consult, Dr. Moran, help appreciated Surgery consulted, Dr. Zamarripa, help appreciated Abdominal US: fatty infilatration of the liver, gallbladder sludge without cholelithiasis, nonspecific thickening of gallbladder wall [see full report] HIDA scan: Normal ABXR: constipation 10. UTI UA showed blood and elevated leukocyte esterase Urine culture grew E. Coli Rocephin 1 gm IVPB daily 11. Prophylactic measures Pepcid 20 mg PO daily Colace 100 mg PO daily Miralax 17 gm PO daily PRN <[place] Linda - Last Filed: 09/21/16 17:47> Objective - Vital Signs/Intake and Output Vital Signs (last 24 hours): Temp Pulse Resp BP Pulse Ox 98.9 F 64 22 151/84 H 98 09/21/16 16:00 09/21/16 16:00 09/21/16 16:00 09/21/16 16:00 09/21/16 16:00 Intake and Output: 09/21/16 09/21/16 06:59 18:59 Intake Total 322 1380 Output Total 1000 Balance -678 1380 - Medications Medications: Current Medications Amlodipine Besylate (Norvasc) 10 mg PO DAILY [facility] Last Admin: 09/21/16 09:01 Dose: 10 mg Aspirin (Ecotrin) 81 mg PO DAILY [facility] Last Admin: 09/21/16 09:01 Dose: 81 mg Clonidine HCl (Catapres) 0.3 mg PO Q8 [facility] Last Admin: 09/21/16 13:20 Dose: 0.3 mg Docusate Sodium (Colace) 100 mg PO DAILY [facility] Last Admin: 09/21/16 09:01 Dose: 100 mg Doxazosin Mesylate (Cardura) 2 mg PO [facility] Hydralazine HCl (Apresoline) 50 mg PO Q8 [facility] Last Admin: 09/21/16 13:19 Dose: 50 mg Nicardipine HCl (Cardene Iv Premix) 200 mls @ 50 mls/hr IV .Q4H PRN; Protocol; 5 MG/HR PRN Reason: TITRATE PER MD ORDER Last Titration: 09/21/16 08:00 Dose: 5 mg/hr Isosorbide Mononitrate (Imdur) 60 mg PO DAILY [facility] Last Admin: 09/21/16 13:19 Dose: 60 mg Lorazepam (Ativan) 0.5 mg IVP Q4H PRN; Protocol PRN Reason: Anxiety Last Admin: 09/20/16 19:11 Dose: 0.5 mg Morphine Sulfate (Morphine) 2 mg IVP Q4H PRN PRN Reason: Pain, moderate (4-7) Last Admin: 09/21/16 09:51 Dose: 2 mg Multi-Ingredient Cream (Hydrocerin Cream) 1 ea TOP BID PRN PRN Reason: Dry nasal passages Ondansetron HCl (Zofran Inj) 4 mg IVP Q8H PRN PRN Reason: Nausea/Vomiting Last Admin: 09/19/16 03:52 Dose: 4 mg Pantoprazole Sodium (Protonix Ec Tab) 40 mg PO ACB [facility] Last Admin: 09/21/16 09:02 Dose: 40 mg Polyethylene Glycol (Miralax) 17 gm PO BID [facility] Last Admin: 09/21/16 17:16 Dose: Not Given Senna/Docusate Sodium (Senokot S 50 Mg-8.6 Mg) 1 tab PO DAILY [facility] Last Admin: 09/21/16 09:02 Dose: 1 tab Sodium Chloride ([place] Nasal [place]) 0 ml NS BID [facility] Last Admin: 09/21/16 17:17 Dose: 1 spr - Labs Labs: 09/21/16 06:00 09/21/16 06:00 PT 11.7 Seconds (9.9-11.8) 09/19/16 11:50 INR 1.08 (0.93-1.08) 09/19/16 11:50 APTT 26.4 Seconds (23.7-30.8) 09/13/16 10:30 Assessment and Plan - Assessment and Plan (Free Text) Assessment: Attending note; I have seen and examined the patient with the resident in CCU. patient's daughter by the bedside. had an episode of shortness of breath this morning. EKG showed no new changes. troponin is trending down. chest x-ray did not show any new changes. Patient is a 51 year old female with history of HTN, non compliant with medications at home, sickle cell trait, glaucoma, marijuana use, former alcohol abuser, OTC motrin use for headache on regular basis who presented with hypertensive emergency and found to have dehydration, hyponatremia, hypokalemia , elevated troponin, CHF due to systolic dysfunction (EF 35-40%), acute kidney injury, sepsis secondary to UTI and PRES syndrome. HTN; on cardene drip. po medications adjusted, BP is improving slowly. elevated metanephrine levels. 24-hour urine metanephrine is pending. Started on alpha cordelia. continue coreg,Prazosin, hydralazine, clonidine, Imdur and Norvasc. Case discussed with cardiology in detail. plan for [facility] tomorrow. Acute on chronic kidney disease. creatinine is improving slowly. Nephrology follow-up appreciated. abdominal pain is improving. Tolerating diet. Abdominal ultrasound showed gallbladder sludge and negative Lovell sign.HIDA is negative. Elevated LFTs; improving. GI evaluation appreciated. 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 anemia; patient got 2 units PRBC transfusion. hemoglobin is stable at 10. No active bleeding. Possible retinal detachment; needs ophthalmology follow-up as outpatient. the diagnosis, follow-up plan discussed with patient and patient' daughter in detail. Upon discharge patient will follow up with Dr Evita Swann. Attending/Attestation - Attestation I have personally seen and examined this patient.: Yes I have fully participated in the care of the patient.: Yes I have reviewed all pertinent clinical information, including history, physical exam and plan: Yes
[2016-09-21] MEDS: Morphine 2 mg/ml ISec IVP PRN (09:51)
--- NOTE | 2016-09-21 09:57 | RAD ---
HISTORY: SOB COMPARISON: 09/19/2016 FINDINGS: LUNGS: No active pulmonary disease. PLEURA: No significant pleural effusion identified, no pneumothorax apparent. CARDIOVASCULAR: Mild cardiomegaly. Left PICC catheter unchanged. OSSEOUS STRUCTURES: No significant abnormalities. VISUALIZED UPPER ABDOMEN: Normal. OTHER FINDINGS: None. IMPRESSION: No active disease.
--- NOTE | 2016-09-21 10:09 | CP.CCUPN ---
<Melinda Ramirez - Last Filed: 09/21/16 11:42> CCU Subjective - Physician Review Events Since Last Encounter (Free Text): 09/21/16 10:01 Patient seen and examined bedside. Patient complained of SOB, burning midsternal CP. Patient is tearful and appears anxious. BP 162/90, no variation between arms with manual BP. STAT CXR, troponins, EKG ordered. No changed on CXR , EKG. Troponin 0.21, trending down from 0.54. BP 2mg IV morphine given, symptoms improved. BP 156/85. Still on cardene drip. Patient states her CP and back pain are significantly improved, denies any further SOB. Critical Care Time Spent (in minutes): 40 CCU Objective - Vital Signs / Intake & Output Vital Signs (Last 4 hours): Vital Signs Temp Pulse Resp BP Pulse Ox 09/21/16 09:01 67 156/85 H 09/21/16 08:00 98.1 F 60 20 168/94 H 100 09/21/16 07:24 62 09/21/16 07:19 62 24 100 09/21/16 07:15 63 29 H 119/53 L 100 09/21/16 07:00 71 32 H 156/83 H 100 09/21/16 06:45 67 23 158/91 H 100 09/21/16 06:30 66 164/92 H 100 09/21/16 06:15 65 27 H 173/100 H 98 Intake and Output (Last 8hrs): Intake & Output 09/20/16 09/21/16 09/21/16 22:59 06:59 14:59 Intake Total 550 322 Output Total 250 1000 Balance 300 -678 Weight 167 lb 3 oz Intake: IV 82 Left Upper arm 82 Oral 550 240 Output: Urine 250 1000 Urethral (Cano) 250 1000 Other: Voiding Method Indwelling Catheter Indwelling Catheter # Bowel Movements 1 - Physical Exam Head: Positive for: Atraumatic, Normocephalic Pupils: Positive for: PERRL (No vision left eye) Extroacular Muscles: Positive for: EOMI Conjunctiva: Positive for: Normal Mouth: Positive for: Moist Mucous Membranes Neck: Positive for: Normal Range of Motion Respiratory/Chest: Positive for: Clear to Auscultation, Good Air Exchange, Tender to Palpation (Tenderness to chest wall). Negative for: Respiratory Distress, Accessory Muscle Use Cardiovascular: Positive for: Regular Rate and Rhythm, Normal S1, S2. Negative for: Murmurs Abdomen: Positive for: Normal Bowel Sounds. Negative for: Tenderness, Distention, Peritoneal Signs, Rebound Back: Positive for: Normal Inspection Upper Extremity: Positive for: Normal Inspection. Negative for: Cyanosis, Edema Lower Extremity: Positive for: Normal Inspection, NORMAL PULSES. Negative for: Edema, CALF TENDERNESS Neurological: Positive for: GCS=15, CN II-XII Intact, Speech Normal Skin: Positive for: Warm, Dry, Normal Color. Negative for: Rashes Psychiatric: Positive for: Alert, Oriented x 3, Normal Insight, Normal Concentration - Medications Active Medications: Active Medications Generic Name Dose Route Start Last Admin Trade Name Freq PRN Reason Stop Dose Admin Amlodipine Besylate 10 mg 09/15/16 12:05 09/21/16 09:01 Norvasc PO 10 mg DAILY ANNA Administration Aspirin 81 mg 09/14/16 10:00 09/21/16 09:01 Ecotrin PO 81 mg DAILY ANNA Administration Clonidine HCl 0.3 mg 09/19/16 14:00 09/21/16 06:01 Catapres PO 0.3 mg Q8 ANNA Administration Docusate Sodium 100 mg 09/14/16 10:00 09/21/16 09:01 Colace PO 100 mg DAILY ANNA Administration Doxazosin Mesylate 1 mg 09/20/16 22:00 09/20/16 22:06 Cardura PO 1 mg 2200 ANNA Administration Hydralazine HCl 50 mg 09/19/16 14:00 09/21/16 06:00 Apresoline PO 50 mg Q8 ANNA Administration Ceftriaxone Sodium 100 mls @ 100 mls/hr 09/19/16 10:00 09/21/16 09:02 Rocephin 1 Gram Ivpb IVPB 100 mls/hr DAILY ANNA Administration Protocol Nicardipine HCl 200 mls @ 50 mls/hr 09/19/16 10:52 09/21/16 08:00 Cardene Iv Premix IV 5 mg/hr .Q4H PRN Titration TITRATE PER MD ORDER Protocol 5 MG/HR Isosorbide Mononitrate 30 mg 09/15/16 10:00 09/21/16 09:01 Imdur PO 30 mg DAILY ANNA Administration Lorazepam 0.5 mg 09/16/16 08:36 09/20/16 19:11 Ativan IVP 0.5 mg Q4H PRN Administration Anxiety Protocol Morphine Sulfate 2 mg 09/14/16 07:39 09/21/16 09:51 Morphine IVP 2 mg Q4H PRN Administration Pain, moderate (4-7) Multi-Ingredient Cream 1 ea 09/17/16 11:01 Hydrocerin Cream TOP BID PRN Dry nasal passages Ondansetron HCl 4 mg 09/19/16 03:45 09/19/16 03:52 Zofran Inj IVP 4 mg Q8H PRN Administration Nausea/Vomiting Pantoprazole Sodium 40 mg 09/18/16 12:45 09/21/16 09:02 Protonix Ec Tab PO 40 mg ACB ANNA Administration Polyethylene Glycol 17 gm 09/20/16 10:08 09/21/16 09:01 Miralax PO 17 gm BID ANNA Administration Senna/Docusate Sodium 1 tab 09/20/16 10:15 09/21/16 09:02 Senokot S 50 Mg-8.6 Mg PO 1 tab DAILY ANNA Administration Sodium Chloride 0 ml 09/19/16 12:30 09/21/16 09:03 [place]ar Nasal [place] NS 1 spr BID ANNA Administration - Patient Studies Lab Studies: Microbiology Studies 09/15/16 19:20 Blood Culture - Final Blood-Venous NO GROWTH AFTER 5 DAYS Gram Stain - Final TEST NOT PERFORMED 09/15/16 19:00 Blood Culture - Final Blood-Venous NO GROWTH AFTER 5 DAYS Gram Stain - Final TEST NOT PERFORMED Lab Studies 09/21/16 09/21/16 09/20/16 Range/Units 07:30 06:00 12:20 WBC 6.9 (4.5-11.0) 10^3/ul RBC 3.34 L (3.5-6.1) 10^6/uL Hgb 10.0 L (12.0-16.0) gm/dL Hct 28.3 L (36.0-48.0) % MCV 84.7 (80.0-105.0) fL MCH 29.9 (25.0-35.0) pg MCHC 35.3 (31.0-37.0) g/dl RDW 17.0 H (11.5-14.5) % Plt Count 290 (120.0-450.0) 10^3/uL MPV 11.8 H (7.0-11.0) fl Gran % 71.4 H (50.0-68.0) % Lymph % (Auto) 16.4 L (22.0-35.0) % [place] % (Auto) 9.9 H (1.0-6.0) % Eos % (Auto) 2.0 (1.5-5.0) % Baso % (Auto) 0.3 (0.0-3.0) % Gran # 4.92 (1.4-6.5) Lymph # 1.1 L (1.2-3.4) [place] # 0.7 H (0.1-0.6) Eos # 0.1 (0.0-0.7) Baso # 0.02 (0.0-2.0) K/mm3 Sodium 133 (132-148) mmol/L Potassium 4.0 (3.6-5.0) mmol/L Chloride 101 (98-107) mmol/L Carbon Dioxide 21 (21-33) mmol/L Anion Gap 15 (10-20) BUN 68 H (7-21) mg/dL Creatinine 3.6 H (0.5-1.4) mg/dL Est GFR ( Amer) 16 Est GFR (Non-Af Amer) 13 Random Glucose 101 (70-110) mg/dL Calcium 8.5 (8.4-10.5) mg/dL Phosphorus 4.9 H (2.5-4.5) mg/dL Magnesium 2.2 (1.7-2.2) mg/dL Total Bilirubin 0.3 (0.2-1.3) mg/dL AST 64 H (15-39) U/L ALT 216 H (7-56) U/L Alkaline Phosphatase 300 H (38-133) U/L Troponin I 0.21 H* D ng/mL Total Protein 6.3 (5.8-8.3) g/dL Albumin 2.9 L (3.0-4.8) g/dL Globulin 3.3 gm/dL Albumin/Globulin Ratio 0.9 L (1.1-1.8) Urine Osmolality (50-645) mosm/kg Ur Random Creatinine mg/dL Ur Random Sodium meq/L Urine Total Volume Cancelled Ur 24 Hour Volume Cancelled Ur Epinephrine 24 Hr Cancelled U Norepinephrine 24 Hr Cancelled Urine Metanephrine Cancelled U Normetanephrine Cancelled U Tot Metanephrine 24h Cancelled Ur Dopamine 24 Hr Cancelled Urine Opiates Screen (NEGATIVE) Urine Methadone Screen (NEGATIVE) Ur Barbiturates Screen (NEGATIVE) Ur Phencyclidine Scrn (NEGATIVE) Ur Amphetamines Screen (NEGATIVE) U Benzodiazepines Scrn (NEGATIVE) U Oth Cocaine Metabols (NEGATIVE) U Cannabinoids Screen (NEGATIVE) Proteinase 3 (PR3) (<1.0) AI Myeloperoxidase Ab (<1.0) AI 09/20/16 09/20/16 09/19/16 Range/Units 10:50 10:30 11:50 WBC (4.5-11.0) 10^3/ul RBC (3.5-6.1) 10^6/uL Hgb (12.0-16.0) gm/dL Hct (36.0-48.0) % MCV (80.0-105.0) fL MCH (25.0-35.0) pg MCHC (31.0-37.0) g/dl RDW (11.5-14.5) % Plt Count (120.0-450.0) 10^3/uL MPV (7.0-11.0) fl Gran % (50.0-68.0) % Lymph % (Auto) (22.0-35.0) % [place] % (Auto) (1.0-6.0) % Eos % (Auto) (1.5-5.0) % Baso % (Auto) (0.0-3.0) % Gran # (1.4-6.5) Lymph # (1.2-3.4) [place] # (0.1-0.6) Eos # (0.0-0.7) Baso # (0.0-2.0) K/mm3 Sodium (132-148) mmol/L Potassium (3.6-5.0) mmol/L Chloride (98-107) mmol/L Carbon Dioxide (21-33) mmol/L Anion Gap (10-20) BUN (7-21) mg/dL Creatinine (0.5-1.4) mg/dL Est GFR ( Amer) Est GFR (Non-Af Amer) Random Glucose (70-110) mg/dL Calcium (8.4-10.5) mg/dL Phosphorus (2.5-4.5) mg/dL Magnesium (1.7-2.2) mg/dL Total Bilirubin (0.2-1.3) mg/dL AST (15-39) U/L ALT (7-56) U/L Alkaline Phosphatase (38-133) U/L Troponin I ng/mL Total Protein (5.8-8.3) g/dL Albumin (3.0-4.8) g/dL Globulin gm/dL Albumin/Globulin Ratio (1.1-1.8) Urine Osmolality 318 (50-645) mosm/kg Ur Random Creatinine 57 mg/dL Ur Random Sodium 19 meq/L Urine Total Volume Ur 24 Hour Volume Ur Epinephrine 24 Hr U Norepinephrine 24 Hr Urine Metanephrine U Normetanephrine U Tot Metanephrine 24h Ur Dopamine 24 Hr Urine Opiates Screen Positive H (NEGATIVE) Urine Methadone Screen Negative (NEGATIVE) Ur Barbiturates Screen Negative (NEGATIVE) Ur Phencyclidine Scrn Negative (NEGATIVE) Ur Amphetamines Screen Negative (NEGATIVE) U Benzodiazepines Scrn Negative (NEGATIVE) U Oth Cocaine Metabols Negative (NEGATIVE) U Cannabinoids Screen Positive H (NEGATIVE) Proteinase 3 (PR3) <1.0 (<1.0) AI Myeloperoxidase Ab <1.0 (<1.0) AI Laboratory Results - last 24 hr 09/19/16 09/20/16 09/20/16 11:50 10:30 10:50 WBC RBC Hgb Hct MCV MCH MCHC RDW Plt Count MPV Gran % Lymph % (Auto) [place] % (Auto) Eos % (Auto) Baso % (Auto) Gran # Lymph # [place] # Eos # Baso # Sodium Potassium Chloride Carbon Dioxide Anion Gap BUN Creatinine Est GFR ( Amer) Est GFR (Non-Af Amer) Random Glucose Calcium Phosphorus Magnesium Total Bilirubin AST ALT Alkaline Phosphatase Troponin I Total Protein Albumin Globulin Albumin/Globulin Ratio Urine Osmolality 318 Ur Random Creatinine 57 Ur Random Sodium 19 Urine Total Volume Ur 24 Hour Volume Ur Epinephrine 24 Hr U Norepinephrine 24 Hr Urine Metanephrine U Normetanephrine U Tot Metanephrine 24h Ur Dopamine 24 Hr Urine Opiates Screen Positive H Urine Methadone Screen Negative Ur Barbiturates Screen Negative Ur Phencyclidine Scrn Negative Ur Amphetamines Screen Negative U Benzodiazepines Scrn Negative U Oth Cocaine Metabols Negative U Cannabinoids Screen Positive H Proteinase 3 (PR3) <1.0 Myeloperoxidase Ab <1.0 09/20/16 09/21/16 09/21/16 12:20 06:00 07:30 WBC 6.9 RBC 3.34 L Hgb 10.0 L Hct 28.3 L MCV 84.7 MCH 29.9 MCHC 35.3 RDW 17.0 H Plt Count 290 MPV 11.8 H Gran % 71.4 H Lymph % (Auto) 16.4 L [place] % (Auto) 9.9 H Eos % (Auto) 2.0 Baso % (Auto) 0.3 Gran # 4.92 Lymph # 1.1 L [place] # 0.7 H Eos # 0.1 Baso # 0.02 Sodium 133 Potassium 4.0 Chloride 101 Carbon Dioxide 21 Anion Gap 15 BUN 68 H Creatinine 3.6 H Est GFR ( Amer) 16 Est GFR (Non-Af Amer) 13 Random Glucose 101 Calcium 8.5 Phosphorus 4.9 H Magnesium 2.2 Total Bilirubin 0.3 AST 64 H ALT 216 H Alkaline Phosphatase 300 H Troponin I 0.21 H* D Total Protein 6.3 Albumin 2.9 L Globulin 3.3 Albumin/Globulin Ratio 0.9 L Urine Osmolality Ur Random Creatinine Ur Random Sodium Urine Total Volume Cancelled Ur 24 Hour Volume Cancelled Ur Epinephrine 24 Hr Cancelled U Norepinephrine 24 Hr Cancelled Urine Metanephrine Cancelled U Normetanephrine Cancelled U Tot Metanephrine 24h Cancelled Ur Dopamine 24 Hr Cancelled Urine Opiates Screen Urine Methadone Screen Ur Barbiturates Screen Ur Phencyclidine Scrn Ur Amphetamines Screen U Benzodiazepines Scrn U Oth Cocaine Metabols U Cannabinoids Screen Proteinase 3 (PR3) Myeloperoxidase Ab EKG/Cardiology Studies: Cardiology / EKG Studies 09/21/16 09:20 EKG [ELECTROCARDIOGRAM] Stat Comment: Reason For Exam: CP Review of Systems - Constitutional Constitutional: absent: Fever, Chills, Sweats - EENT Eyes: absent: Change in Vision - Cardiovascular Cardiovascular: Chest Pain (improved s/p morphine). absent: Diaphoresis, Dyspnea (resolved ) - Respiratory Respiratory: absent: Cough, Dyspnea, Pain on Inspiration - Gastrointestinal Gastrointestinal: absent: Abdominal Pain, Nausea, Vomiting Critical Care Progress Note - Ventilator Checklist PUD Prophalyxis: Yes DVT Prophylaxis: Yes - Nutrition Nutrition: Nutrition Category Date Time Status Heart Healthy Diet [DIET] Diets 09/18/16 Breakfast Ordered Assessment/Plan - Assessment and Plan (Free Text) Assessment: 51 yo F w h/o uncontrolled HTN admitted to ICU with hypertensive emergency, PRES syndrome, cardiomyopathy, ESTEFANI, vitreous hemorrhage, left retinal detachment now back to ICU for elevated BP again poorly responsive to Hydralazine and clonidine, on Cardene drip. Plan: Neuro: AAOx3, NAD MRI head shows extensive brainstem, basal ganglia and thalamic edema, no acute infarct or hemorrhage. Will take 3-6 months to see changes on MRI given current PRES syndrome Neuro recs appreciated re: re-imaging. Will touch base with neurology and follow recs. Maintain normothermia EEG showed diffuse slowing c/w BL cerebral dysfunction, no epileptiform activity Will need optho followup when stable for retinal detachment CV: Hypertensive emergency on Cardene drip. Goal SBP 120-130 Norvasc 10mg PO QDay, Clonidine 0.3mg PO Q8hr, Hydralazine 50mg pO TID, increase Imdur to 60mg PO Qday, increase Doxazosin to 2mg PO QDay. Cardene drip , titrate to SBP goal 120-130 Continue ASA for stroke prevention No renal artery stenosis seen on Duplex. Medical renal Disease BL kidneys Pheochromocytoma suspected. Elevated metanephrines. Confirmatory workup pending. Avoid unopposed beta blockade. Continue hydration Maintain MAP >65 CT chest/abd/pelvis without contrast given ESTEFANI as per nephro and cardio to r/ o dissection. Possible MRI without contrast if CT nondiagnostic. Possible contrast CT/MRI with HD as per nephro - would need temporary HD catheter. Will f /u with nephro after CT without contrast results Pulm: No acute issues, able to protect airway. Comfortable and saturating in high 90s-100% on room air Maintain spo2>90 GI/: Pelvic US shows fundal leiomyoma, 4cm right ovarian cyst Abdominal X-ray shows constipation. Patient had one formed BM yesterday, no blood, non-mucinous. Miralax, Senna, Colace GI ppx Hb currently stable, 10.0. GI recs appreciated HIDA negative Renal: ESTEFANI very slightly improved. Vasculitis workup pending as per nephro. Continue hydration as per nephro Endo: No acute issues A1C 4.2 Maintain euglycemia 140-180 ID: No Leukocytosis, afebrile. Rocephin for E coli UTI as per ID 09/14 blood cultures show coagulase negative Staph aureus - Repeat blood cultures negative Heme: Iron deficiency anemia. Continue venofer Hb 10.0, stable s/p 2u pRBCs 2 days ago DVT/GI ppx: SCDs, Protonix, HHD - Date & Time Date: 09/21/16 Time: 10:10 <Jackelni Mitchell MD - Last Filed: 09/21/16 17:43> CCU Objective - Vital Signs / Intake & Output Vital Signs (Last 4 hours): Vital Signs Temp Pulse Resp BP Pulse Ox 09/21/16 16:00 98.9 F 64 25 H 151/84 H 98 09/21/16 15:16 62 24 99 09/21/16 15:06 63 22 09/21/16 15:01 64 151/87 H 98 09/21/16 15:00 63 30 H 100 09/21/16 14:00 62 145/75 100 Intake and Output (Last 8hrs): Intake & Output 09/21/16 09/21/16 09/21/16 06:59 14:59 22:59 Intake Total 322 Output Total 1000 Balance -678 Weight 167 lb 3 oz Intake: IV 82 Left Upper arm 82 Oral 240 Output: Urine 1000 Urethral (Cano) 1000 Other: Voiding Method Indwelling Catheter # Bowel Movements 1 - Medications Active Medications: Active Medications Generic Name Dose Route Start Last Admin Trade Name Freq PRN Reason Stop Dose Admin Amlodipine Besylate 10 mg 09/15/16 12:05 09/21/16 09:01 Norvasc PO 10 mg DAILY ANNA Administration Aspirin 81 mg 09/14/16 10:00 09/21/16 09:01 Ecotrin PO 81 mg DAILY ANNA Administration Clonidine HCl 0.3 mg 09/19/16 14:00 09/21/16 13:20 Catapres PO 0.3 mg Q8 ANNA Administration Docusate Sodium 100 mg 09/14/16 10:00 09/21/16 09:01 Colace PO 100 mg DAILY ANNA Administration Doxazosin Mesylate 2 mg 09/21/16 22:00 Cardura PO HS ANNA Hydralazine HCl 50 mg 09/19/16 14:00 09/21/16 13:19 Apresoline PO 50 mg Q8 ANNA Administration Nicardipine HCl 200 mls @ 50 mls/hr 09/19/16 10:52 09/21/16 08:00 Cardene Iv Premix IV 5 mg/hr .Q4H PRN Titration TITRATE PER MD ORDER Protocol 5 MG/HR Isosorbide Mononitrate 60 mg 09/21/16 12:00 09/21/16 13:19 Imdur PO 60 mg DAILY ANNA Administration Lorazepam 0.5 mg 09/16/16 08:36 09/20/16 19:11 Ativan IVP 0.5 mg Q4H PRN Administration Anxiety Protocol Morphine Sulfate 2 mg 09/14/16 07:39 09/21/16 09:51 Morphine IVP 2 mg Q4H PRN Administration Pain, moderate (4-7) Multi-Ingredient Cream 1 ea 09/17/16 11:01 Hydrocerin Cream TOP BID PRN Dry nasal passages Ondansetron HCl 4 mg 09/19/16 03:45 09/19/16 03:52 Zofran Inj IVP 4 mg Q8H PRN Administration Nausea/Vomiting Pantoprazole Sodium 40 mg 09/18/16 12:45 09/21/16 09:02 Protonix Ec Tab PO 40 mg ACB ANNA Administration Polyethylene Glycol 17 gm 09/20/16 10:08 09/21/16 17:16 Miralax PO Not Given BID ANNA Senna/Docusate Sodium 1 tab 09/20/16 10:15 09/21/16 09:02 Senokot S 50 Mg-8.6 Mg PO 1 tab DAILY ANNA Administration Sodium Chloride 0 ml 09/19/16 12:30 09/21/16 17:17 [place] Nasal [place] NS 1 spr BID ANNA Administration - Patient Studies Lab Studies: Microbiology Studies 09/15/16 19:20 Blood Culture - Final Blood-Venous NO GROWTH AFTER 5 DAYS Gram Stain - Final TEST NOT PERFORMED 09/15/16 19:00 Blood Culture - Final Blood-Venous NO GROWTH AFTER 5 DAYS Gram Stain - Final TEST NOT PERFORMED Lab Studies 09/21/16 09/21/16 09/21/16 Range/Units 11:23 07:30 06:00 WBC 6.9 (4.5-11.0) 10^3/ul RBC 3.34 L (3.5-6.1) 10^6/uL Hgb 10.0 L (12.0-16.0) gm/dL Hct 28.3 L (36.0-48.0) % MCV 84.7 (80.0-105.0) fL MCH 29.9 (25.0-35.0) pg MCHC 35.3 (31.0-37.0) g/dl RDW 17.0 H (11.5-14.5) % Plt Count 290 (120.0-450.0) 10^3/uL MPV 11.8 H (7.0-11.0) fl Gran % 71.4 H (50.0-68.0) % Lymph % (Auto) 16.4 L (22.0-35.0) % [place] % (Auto) 9.9 H (1.0-6.0) % Eos % (Auto) 2.0 (1.5-5.0) % Baso % (Auto) 0.3 (0.0-3.0) % Gran # 4.92 (1.4-6.5) Lymph # 1.1 L (1.2-3.4) [place] # 0.7 H (0.1-0.6) Eos # 0.1 (0.0-0.7) Baso # 0.02 (0.0-2.0) K/mm3 Sodium 133 (132-148) mmol/L Potassium 4.0 (3.6-5.0) mmol/L Chloride 101 (98-107) mmol/L Carbon Dioxide 21 (21-33) mmol/L Anion Gap 15 (10-20) BUN 68 H (7-21) mg/dL Creatinine 3.6 H (0.5-1.4) mg/dL Est GFR ( Amer) 16 Est GFR (Non-Af Amer) 13 Random Glucose 101 (70-110) mg/dL Calcium 8.5 (8.4-10.5) mg/dL Phosphorus 4.9 H (2.5-4.5) mg/dL Magnesium 2.2 (1.7-2.2) mg/dL Total Bilirubin 0.3 (0.2-1.3) mg/dL AST 64 H (15-39) U/L ALT 216 H (7-56) U/L Alkaline Phosphatase 300 H (38-133) U/L Troponin I 0.21 H* D ng/mL Total Protein 6.3 (5.8-8.3) g/dL Albumin 2.9 L (3.0-4.8) g/dL Globulin 3.3 gm/dL Albumin/Globulin Ratio 0.9 L (1.1-1.8) Lipase 134 (23-300) U/L Proteinase 3 (PR3) (<1.0) AI Myeloperoxidase Ab (<1.0) AI Glomerular Base Mem IgG (<1.0) AI 09/19/16 Range/Units 11:50 WBC (4.5-11.0) 10^3/ul RBC (3.5-6.1) 10^6/uL Hgb (12.0-16.0) gm/dL Hct (36.0-48.0) % MCV (80.0-105.0) fL MCH (25.0-35.0) pg MCHC (31.0-37.0) g/dl RDW (11.5-14.5) % Plt Count (120.0-450.0) 10^3/uL MPV (7.0-11.0) fl Gran % (50.0-68.0) % Lymph % (Auto) (22.0-35.0) % [place] % (Auto) (1.0-6.0) % Eos % (Auto) (1.5-5.0) % Baso % (Auto) (0.0-3.0) % Gran # (1.4-6.5) Lymph # (1.2-3.4) [place] # (0.1-0.6) Eos # (0.0-0.7) Baso # (0.0-2.0) K/mm3 Sodium (132-148) mmol/L Potassium (3.6-5.0) mmol/L Chloride (98-107) mmol/L Carbon Dioxide (21-33) mmol/L Anion Gap (10-20) BUN (7-21) mg/dL Creatinine (0.5-1.4) mg/dL Est GFR ( Amer) Est GFR (Non-Af Amer) Random Glucose (70-110) mg/dL Calcium (8.4-10.5) mg/dL Phosphorus (2.5-4.5) mg/dL Magnesium (1.7-2.2) mg/dL Total Bilirubin (0.2-1.3) mg/dL AST (15-39) U/L ALT (7-56) U/L Alkaline Phosphatase (38-133) U/L Troponin I ng/mL Total Protein (5.8-8.3) g/dL Albumin (3.0-4.8) g/dL Globulin gm/dL Albumin/Globulin Ratio (1.1-1.8) Lipase (23-300) U/L Proteinase 3 (PR3) <1.0 (<1.0) AI Myeloperoxidase Ab <1.0 (<1.0) AI Glomerular Base Mem IgG <1.0 (<1.0) AI Laboratory Results - last 24 hr 09/19/16 09/21/16 09/21/16 11:50 06:00 07:30 WBC 6.9 RBC 3.34 L Hgb 10.0 L Hct 28.3 L MCV 84.7 MCH 29.9 MCHC 35.3 RDW 17.0 H Plt Count 290 MPV 11.8 H Gran % 71.4 H Lymph % (Auto) 16.4 L [place] % (Auto) 9.9 H Eos % (Auto) 2.0 Baso % (Auto) 0.3 Gran # 4.92 Lymph # 1.1 L [place] # 0.7 H Eos # 0.1 Baso # 0.02 Sodium 133 Potassium 4.0 Chloride 101 Carbon Dioxide 21 Anion Gap 15 BUN 68 H Creatinine 3.6 H Est GFR ( Amer) 16 Est GFR (Non-Af Amer) 13 Random Glucose 101 Calcium 8.5 Phosphorus 4.9 H Magnesium 2.2 Total Bilirubin 0.3 AST 64 H ALT 216 H Alkaline Phosphatase 300 H Troponin I 0.21 H* D Total Protein 6.3 Albumin 2.9 L Globulin 3.3 Albumin/Globulin Ratio 0.9 L Lipase Proteinase 3 (PR3) <1.0 Myeloperoxidase Ab <1.0 Glomerular Base Mem IgG <1.0 09/21/16 11:23 WBC RBC Hgb Hct MCV MCH MCHC RDW Plt Count MPV Gran % Lymph % (Auto) [place] % (Auto) Eos % (Auto) Baso % (Auto) Gran # Lymph # [place] # Eos # Baso # Sodium Potassium Chloride Carbon Dioxide Anion Gap BUN Creatinine Est GFR ( Amer) Est GFR (Non-Af Amer) Random Glucose Calcium Phosphorus Magnesium Total Bilirubin AST ALT Alkaline Phosphatase Troponin I Total Protein Albumin Globulin Albumin/Globulin Ratio Lipase 134 Proteinase 3 (PR3) Myeloperoxidase Ab Glomerular Base Mem IgG EKG/Cardiology Studies: Cardiology / EKG Studies 09/21/16 09:20 EKG [ELECTROCARDIOGRAM] Stat Comment: Reason For Exam: CP Critical Care Progress Note - Nutrition Nutrition: Nutrition Category Date Time Status Heart Healthy Diet [DIET] Diets 09/18/16 Breakfast Ordered Attending/Attestation - Attestation I have personally seen and examined this patient.: Yes I have fully participated in the care of the patient.: Yes I have reviewed all pertinent clinical information: Yes Notes (Text): 09/21/16 17:39 51 y/o F w/ HTN emergency w/ ESTEFANI 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 On cardene and was given multiple fluid bolus to help keep intravascular volume up. cp/ abd pain without cause, possible need for NORMA tomorrow to r/o disection . hep sq tid ESTEFANI- Making urine daily 40cc/ hr . creatnine stable. no plans for HD yet Retinal detachment L eye . Opthamology aware . No acute treatment plans as of yet. cc time 65 min
--- NOTE | 2016-09-21 12:24 | PN ---
DATE: 09/21/2016 NEPHROLOGY FOLLOWUP NOTE The patient is a 51-year-old female with history of hypertension, admitted with hypertensive emergenc y, acute renal failure, findings consistent with PRES syndrome. This morning, the patient reports se kimberli epigastric/lower substernal chest pain along with back pain that started earlier this morning. Reports difficulty breathing, specifically saying that she cannot catch her breath, and that this sta rted all of a sudden. Per nursing staff, the patient was observed to be in no distress at around 7:0 0 a.m. this morning. VITAL SIGNS: Blood pressure 156/85, heart rate of 67, respirations 20, temperature 98.1, O2 sat 100% on room air. PHYSICAL EXAMINATION: GENERAL: The patient is in moderate distress, able to answer questions coherently, speaking in full sentences. CHEST: Bilateral rales at bases, tachypneic. HEART: S1, S2 positive. No rubs, gallops, or murmurs. ABDOMEN: Soft. Marked epigastric/subxiphoid tenderness, also with corresponding thoracic spinal ten derness at the same level. EXTREMITIES: Mild to moderate bilateral lower leg edema, increased from previous exam. ASSESSMENT: 1. Hypertensive emergency. The patient is still on nicardipine drip, started on doxazosin yesterday for alpha blockade due to concern for pheochromocytoma. The patient today again symptomatic with up per epigastric/lower sternal tenderness to palpation. Case discussed with critical care team and tasia manrique custom bow maker. Possibly of dissection was considered at initial presentation. However, EKG f indings were not suggestive. CAT scan done without contrast was also not suggestive. We will repea t chest CT without contrast, as well as transthoracic echo. 2. Malignant hypertension. Episodic marked increases in blood pressure possibly consistent with phe ochromocytoma. Plasma metanephrines elevated to 4 times the normal limit. A 24-hour urine sent for metanephrines. Awaiting result. 3. Acute renal failure on chronic kidney disease, likely secondary to malignant hypertension and wor sened by the need to control blood pressure stringently in the setting of posterior reversible enceph alopathy syndrome. Renal function mildly improved today. Needs further workup for chronic kidney di sease. 4. Epigastric pain. Possibilities include pancreatitis, although previous abdominal CT negative, an d the patient's symptoms are episodic. Gastric ulcer is still a suspicion for aortic dissection due to presentation with malignant hypertension. Obtaining repeat CT chest, abdomen, and pelvis without IV contrast. If suspicion for aortic dissection remains, may need to get CT-angio with expectation that this will precipitate the need for dialysis. 5. Anemia secondary to marked iron deficiency. Awaiting stool for occult blood. Critical care time spent seeing the patient, discussing with critical care team and consulting cardio logist: 35 minutes. Shane Rosen MD cc: [id number] TT: 09/21/2016 11:56:11 Confirmation # [id number] Dictation # [id number]
--- NOTE | 2016-09-21 13:09 | PN ---
DATE: 09/21/2016 The patient is experiencing epigastric discomfort radiating to the back in the same level, as well as nausea. There is no diaphoresis and no upper back pain. VITAL SIGNS: Blood pressure 166/70, heart rate 71, temperature of 98.1. HENT: Pale conjunctivae. CHEST: Clear. HEART: S1, S2 regular. EXTREMITIES: No edema. LABORATORIES: BUN and creatinine 68 and 3.6. Troponin 0.21. Hemoglobin and hematocrit 10 and 28.3, white count and platelet count are within normal limits. Repeat urine drug screen is still positive for cannabinoids after 6 days. Yesterday's abdominal flat plate impression is constipation. Chest x-ray was unremarkable except for questionable right lower lobe infiltrates. ASSESSMENT: 1. Hypertension. 2. Renal insufficiency. 3. Status post hypertensive encephalopathy. RECOMMENDATIONS: Case was discussed at length with Dr. Atkinson_. Obtain chest and abdomen CT scan with oral contrast. Repeat bedside echocardiograph study to rule out the presence of pericardial effusion. Clinically aortic dissection is not strong possibility. If clinical evidence suggests that, then hemodialysis will be considered, as well as followed by a chest CT angio. Obtain serum lipid profile. Continue current hydralazine, Cardura, clonidine, aspirin, Imdur, Norvasc, and IV Rocephin. For NORMA in AM Misael Carson MD cc: [id number] TT: 09/21/2016 13:09:27 Confirmation # [id number] Dictation # [id number] MTDD
--- NOTE | 2016-09-21 13:53 | PN ---
DATE: 09/21/2016 SUBJECTIVE: The patient remains in CCU. Blood pressure is better controlled. She complains now of shortness of breath. She denies any abdominal pain, nausea, vomiting. PHYSICAL EXAMINATION: VITAL SIGNS: Reveal temperature of 97.6, blood pressure 156/73, heart rate 65. HEENT: Reveals sclerae to be white, conjunctivae pink. NECK: Supple. CHEST: Lungs are clear. HEART: Reveals a regular rate and rhythm. ABDOMEN: Obese, soft, nontender. EXTREMITIES: Show no edema. LABORATORY DATA: Reveal BUN 68, creatinine 3.6, hemoglobin of 10. AST, ALT are continuing to trend downward to 64, 216, and 300. Troponins remain elevated at 0.21. IMPRESSION: A 51-year-old female with accelerated hypertension, now with shortness of breath, elevat ed liver enzymes which are trending downwards; history of longstanding alcohol use. RECOMMENDATIONS: 1. Continue supportive care. 2. She is stable from a GI standpoint. Carlos Moran MD cc: [id number] TT: 09/21/2016 13:52:46 Confirmation # [id number] Dictation # [id number]
--- NOTE | 2016-09-21 14:22 | CP.PCM.PN ---
Subjective - Date & Time of Evaluation Date of Evaluation: 09/21/16 Time of Evaluation: 08:20 - Subjective Subjective: Comfortable in bed, not in distress, no fevers overnight, no diarrhea. Objective - Vital Signs/Intake and Output Vital Signs (last 24 hours): Temp Pulse Resp BP Pulse Ox 97.6 F 65 28 H 156/73 H 99 09/21/16 12:00 09/21/16 13:20 09/21/16 13:00 09/21/16 13:20 09/21/16 13:00 Intake and Output: 09/21/16 09/21/16 06:59 18:59 Intake Total 322 Output Total 1000 Balance -678 - Medications Medications: Current Medications Amlodipine Besylate (Norvasc) 10 mg PO DAILY [facility] Last Admin: 09/21/16 09:01 Dose: 10 mg Aspirin (Ecotrin) 81 mg PO DAILY [facility] Last Admin: 09/21/16 09:01 Dose: 81 mg Clonidine HCl (Catapres) 0.3 mg PO Q8 [facility] Last Admin: 09/21/16 13:20 Dose: 0.3 mg Docusate Sodium (Colace) 100 mg PO DAILY [facility] Last Admin: 09/21/16 09:01 Dose: 100 mg Doxazosin Mesylate (Cardura) 2 mg PO HS [facility] Hydralazine HCl (Apresoline) 50 mg PO Q8 [facility] Last Admin: 09/21/16 13:19 Dose: 50 mg Nicardipine HCl (Cardene Iv Premix) 200 mls @ 50 mls/hr IV .Q4H PRN; Protocol; 5 MG/HR PRN Reason: TITRATE PER MD ORDER Last Titration: 09/21/16 08:00 Dose: 5 mg/hr Isosorbide Mononitrate (Imdur) 60 mg PO DAILY [facility] Last Admin: 09/21/16 13:19 Dose: 60 mg Lorazepam (Ativan) 0.5 mg IVP Q4H PRN; Protocol PRN Reason: Anxiety Last Admin: 09/20/16 19:11 Dose: 0.5 mg Morphine Sulfate (Morphine) 2 mg IVP Q4H PRN PRN Reason: Pain, moderate (4-7) Last Admin: 09/21/16 09:51 Dose: 2 mg Multi-Ingredient Cream (Hydrocerin Cream) 1 ea TOP BID PRN PRN Reason: Dry nasal passages Ondansetron HCl (Zofran Inj) 4 mg IVP Q8H PRN PRN Reason: Nausea/Vomiting Last Admin: 09/19/16 03:52 Dose: 4 mg Pantoprazole Sodium (Protonix Ec Tab) 40 mg PO ACB [facility] Last Admin: 09/21/16 09:02 Dose: 40 mg Polyethylene Glycol (Miralax) 17 gm PO BID [facility] Last Admin: 09/21/16 09:01 Dose: 17 gm Senna/Docusate Sodium (Senokot S 50 Mg-8.6 Mg) 1 tab PO DAILY [facility] Last Admin: 09/21/16 09:02 Dose: 1 tab Sodium Chloride ([place] Nasal [place]) 0 ml NS BID [facility] Last Admin: 09/21/16 09:03 Dose: 1 spr - Labs Labs: 09/21/16 06:00 09/21/16 06:00 PT 11.7 Seconds (9.9-11.8) 09/19/16 11:50 INR 1.08 (0.93-1.08) 09/19/16 11:50 APTT 26.4 Seconds (23.7-30.8) 09/13/16 10:30 - Constitutional Appears: Non-toxic, No Acute Distress - Head Exam Head Exam: NORMAL INSPECTION - ENT Exam ENT Exam: Mucous Membranes Moist - Neck Exam Neck Exam: absent: Lymphadenopathy, Meningismus - Respiratory Exam Respiratory Exam: Decreased Breath Sounds - Cardiovascular Exam Cardiovascular Exam: +S1, +S2 - GI/Abdominal Exam GI & Abdominal Exam: Soft. absent: Tenderness Assessment and Plan - Assessment and Plan (Free Text) Plan: Assessment Systemic Inflammatory Response Syndrome probably secondary to hypertensive urgency / emergency with associated Posterior Reversible Encephalopathy Syndrome (PRES) and acute renal failure sepsis from urinary tract infection with E. coli; clinically improved Coagulase negative Staph in one blood cx bottle, most likely contamination HTN, poorly-controlled history of glaucoma history of cataracts sickle cell trait S/P Caesarian section obesity with BMI 31 Plan has had 7 days of Rocephin; will d/c antibiotics today and observe Will continue to monitor clinically
--- NOTE | 2016-09-21 16:16 | CT ---
PROCEDURE: CT Chest, Abdomen and Pelvis without intravenous contrast HISTORY: CP, r/o dissection COMPARISON: None. TECHNIQUE: Radiation dose: Total exam DLP = 1156 mGy-cm. This CT exam was performed using one or more of the following dose reduction techniques: Automated exposure control, adjustment of the mA and/or kV according to patient size, and/or use of iterative reconstruction technique. FINDINGS: CT CHEST WITHOUT CONTRAST: LUNGS: There is some consolidation adjacent to the right lower lobe pleural effusion MEDIASTINUM: Unremarkable. Normal caliber aorta and pulmonary arterial trunk. Normal size heart. Calcified coronary arteries LYMPH NODES: Unremarkable. PLEURA: There is a small right effusion BONES: Unremarkable. OTHER FINDINGS: None. CT ABDOMEN AND PELVIS: LIVER: Unremarkable. No gross lesion or ductal dilatation. GALLBLADDER AND BILE DUCTS: The gallbladder is dense probably due to sludge or stones PANCREAS: Unremarkable. No gross lesion or ductal dilatation. SPLEEN: Unremarkable. ADRENALS: Unremarkable. No mass. KIDNEYS AND URETERS: Unremarkable. No hydronephrosis. No solid mass. VASCULATURE: The study was performed without contrast. Aortic dissection cannot be excluded. The aorta is normal in caliber BOWEL: Unremarkable. No obstruction. No gross mural thickening. APPENDIX: Normal appendix. PERITONEUM: Unremarkable. No free fluid. No free air. LYMPH NODES: Unremarkable. No enlarged lymph nodes. BLADDER: Unremarkable. REPRODUCTIVE: Unremarkable. BONES: No acute fracture. OTHER FINDINGS: There is edema in the subcutaneous fat planes bilaterally IMPRESSION: Small right pleural effusion and consolidation at the right lung base. The aorta cannot be evaluated for dissection without IV contrast
--- NOTE | 2016-09-21 18:28 | CARD ---
APPROVED REPORT EKG Measurement Heart [id number] ME [id number] <Conclusion> Normal sinus rhythm Possible Left atrial enlargement Left ventricular hypertrophy Nonspecific ST and T wave abnormality Abnormal ECG
[2016-09-22 05:45] LABS: ADD MANUAL DIFF? NO
[2016-09-22 06:06] LABS: POTASSIUM 3.9 mmol/L (3.6-5.0)
[2016-09-22 06:07] LABS: ALB/GLOB RATIO 0.9 (1.1-1.8); BASO # 0.02 K/mm3 (0.0-2.0); BASO % 0.3 % (0.0-3.0); BILIRUBIN,TOTAL 0.4 mg/dL (0.2-1.3); CALCIUM 8.2 mg/dL (8.4-10.5); EOS # 0.2 (0.0-0.7); EOS % 2.5 % (1.5-5.0); GRAN # 4.05 (1.4-6.5); GRAN % 67.1 % (50.0-68.0); HEMATOCRIT 27.6 % (36.0-48.0); LYMPH # 1.3 (1.2-3.4); LYMPH % 21.5 % (22.0-35.0); MAGNESIUM 2.1 mg/dL (1.7-2.2); MEAN CELL VOLUME 86.3 fL (80.0-105.0); MEAN CORPUSCULAR HEMOGLOBIN 30.6 pg (25.0-35.0); MEAN CORPUSCULAR HGB CONC 35.5 g/dl (31.0-37.0); MEAN PLATELET VOLUME 11.1 fl (7.0-11.0); MONO # 0.5 (0.1-0.6); MONO % 8.6 % (1.0-6.0); PHOSPHOROUS 4.8 mg/dL (2.5-4.5); PLATELET COUNT 263 10^3/uL (120.0-450.0); RED CELL DISTRIBUTION WIDTH 16.8 % (11.5-14.5); TOTAL PROTEIN 6.3 g/dL (5.8-8.3)
[2016-09-22] MEDS: Nicardipine 20 MG/200 ML 200 ML IV PRN ×3 (08:00→19:50)
[2016-09-22] MEDS: Pantoprazole 40 mg EC Tab PO SCH (08:21)
--- NOTE | 2016-09-22 09:25 | CP.PCM.PN ---
<Luciano Mustafa - Last Filed: 09/22/16 09:34> Subjective - Date & Time of Evaluation Date of Evaluation: 09/22/16 Time of Evaluation: 07:25 - Subjective Subjective: PGY-1 Medicine Progress Note for Dr. Linda Patient seen and examined at bedside. No acute event overnight. Patient sitting up in bed comfortably. Patient is feeling much better than yesterday. Epigastric pain and SOB have resolved. She is going for NORMA today with dr. Carson. Today, her systolic pressure in 140's. Patient is still on the nicardipine drip. Denied syncope, vertigo, dizziness/lightheadedness, weakness, fever/chills, cp, SOB, palpitations, abd pain, n/v/d, consitpation, incontinence , numbness/tingling. Objective - Vital Signs/Intake and Output Vital Signs (last 24 hours): Temp Pulse Resp BP Pulse Ox 98.6 F 63 25 H 151/82 H 100 09/22/16 04:00 09/22/16 06:00 09/22/16 06:00 09/22/16 06:00 09/22/16 06:00 Intake and Output: 09/22/16 09/22/16 06:59 18:59 Intake Total 1000 Output Total 1000 Balance 0 - Medications Medications: Current Medications Amlodipine Besylate (Norvasc) 10 mg PO DAILY [facility] Last Admin: 09/21/16 09:01 Dose: 10 mg Aspirin (Ecotrin) 81 mg PO DAILY [facility] Last Admin: 09/21/16 09:01 Dose: 81 mg Clonidine HCl (Catapres) 0.3 mg PO Q8 [facility] Last Admin: 09/22/16 05:24 Dose: 0.3 mg Docusate Sodium (Colace) 100 mg PO DAILY [facility] Last Admin: 09/21/16 09:01 Dose: 100 mg Doxazosin Mesylate (Cardura) 2 mg PO HS [facility] Last Admin: 09/21/16 21:58 Dose: 2 mg Hydralazine HCl (Apresoline) 50 mg PO Q8 [facility] Last Admin: 09/22/16 05:23 Dose: 50 mg Nicardipine HCl (Cardene Iv Premix) 200 mls @ 50 mls/hr IV .Q4H PRN; Protocol; 5 MG/HR PRN Reason: TITRATE PER MD ORDER Last Admin: 09/22/16 08:00 Dose: 20 mls/hr Isosorbide Mononitrate (Imdur) 60 mg PO DAILY [facility] Last Admin: 09/21/16 13:19 Dose: 60 mg Lorazepam (Ativan) 0.5 mg IVP Q4H PRN; Protocol PRN Reason: Anxiety Last Admin: 09/20/16 19:11 Dose: 0.5 mg Morphine Sulfate (Morphine) 2 mg IVP Q4H PRN PRN Reason: Pain, moderate (4-7) Last Admin: 09/21/16 09:51 Dose: 2 mg Multi-Ingredient Cream (Hydrocerin Cream) 1 ea TOP BID PRN PRN Reason: Dry nasal passages Ondansetron HCl (Zofran Inj) 4 mg IVP Q8H PRN PRN Reason: Nausea/Vomiting Last Admin: 09/19/16 03:52 Dose: 4 mg Pantoprazole Sodium (Protonix Ec Tab) 40 mg PO ACB [facility] Last Admin: 09/22/16 08:21 Dose: 40 mg Polyethylene Glycol (Miralax) 17 gm PO BID [facility] Last Admin: 09/21/16 17:16 Dose: Not Given Senna/Docusate Sodium (Senokot S 50 Mg-8.6 Mg) 1 tab PO DAILY [facility] Last Admin: 09/21/16 09:02 Dose: 1 tab Sodium Chloride ([place] Nasal [place]) 0 ml NS BID [facility] Last Admin: 09/21/16 17:17 Dose: 1 spr - Labs Labs: 09/22/16 05:00 09/22/16 05:00 PT 11.7 Seconds (9.9-11.8) 09/19/16 11:50 INR 1.08 (0.93-1.08) 09/19/16 11:50 APTT 26.4 Seconds (23.7-30.8) 09/13/16 10:30 - Constitutional Appears: No Acute Distress - Head Exam Head Exam: ATRAUMATIC, NORMOCEPHALIC - Eye Exam Eye Exam: EOMI, Normal appearance Pupil Exam: PERRL Additional comments: L vision still impaired - ENT Exam ENT Exam: Mucous Membranes Moist - Neck Exam Neck Exam: Normal Inspection - Respiratory Exam Respiratory Exam: Clear to Ausculation Bilateral, NORMAL BREATHING PATTERN - Cardiovascular Exam Cardiovascular Exam: RRR, +S1, +S2 - GI/Abdominal Exam GI & Abdominal Exam: Soft, Normal Bowel Sounds. absent: Tenderness - Extremities Exam Extremities Exam: Normal Capillary Refill - Back Exam Back Exam: absent: CVA tenderness (L), CVA tenderness (R) - Neurological Exam Neurological Exam: Alert, Awake, CN II-XII Intact, Oriented x3 - Psychiatric Exam Psychiatric exam: Normal Affect, Normal Mood - Skin Skin Exam: Dry, Intact, Normal Color, Warm Assessment and Plan - Assessment and Plan (Free Text) Plan: 51 F with history of HTN, non compliant with medications at home, sickle cell trait, glaucoma, marijuana use, former alcohol abuser who presented with hypertensive emergency and found to have dehydration, hyponatremia, hypokalemia , elevated troponin, CHF due to systolic dysfunction (EF 35-40%), acute kidney injury, sepsis secondary to UTI and PRES syndrome. 1. Hypertensive Emergency ICU NORMA today CT chest/abd/pelvis: unremarkable (see full report) ECHO: LV normal size, mild concentric LVH, mild-mod impaired systolic function EF35-40, mild-mod hypokinesis apical anterior wall, mild mitral regurg, trace aortic regurg, mild tricuspid regurg Renal US: Medical renal disease, 1.6 cm simple cyst on upper pole of r kidney ( see full report). MRI Brain: extensice signal abnormality in brainstem and basal ganglia bilaterally, particularly thalami, suspicious for edema. Extensive white matter signal abnormality in cerebral hemispheresbilaterally. Uncertain etiology, could be hypertensive/infectious/inflammatory encephalopathy extensivve demyelinating disease, toxic insult, or underlying metabolic abnormality (see full report). CT head: extensive hypodensity in the perventricular white matter, sheyla, and cerebellar white matter. Could represent vasogenic edema related to HTN or chronic microvascular disease (see full report). CT chest: mild cardiomegaly, very mild emphysematous changes in lung apices bilaterally (see full report). CT abd/pelvos: Right ovarian cyst (see full report). Carotid duplex: bilateral 20-39% stenoses of proximal ICA, antegrade flow in both vertebral arteries (see full report). ASA 81 mg PO daily Norvasc 10 mg PO daily Coreg 6.25 PO BID Hydralazine 50 mg PO TID Clonidine 0.3 mg PO Q8H Isosorbide Mononitrate 60 mg PO daily Cardura 2 mg PO HS Nicardipine drip Nephro consult, Dr. Mcgarry, help appreciated Opthlamology consult, Dr. Bae, help appreciated Cardio consult, Dr. Carson, help appreciated Cardiac enzymes 0.20-->0.28-->1.98-->1.43-->2.43-->2.24-->0.54-->0.21 f/u daily labs Urine metanephrines elevated, suspicious for Pheochromocytoma Heart healthy diet 2. Chest Pain NORMA today CT chest/abd/pelvis: unremarkable (see full report) ECHO: LV normal size, mild concentric LVH, mild-mod impaired systolic function EF35-40, mild-mod hypokinesis apical anterior wall, mild mitral regurg, trace aortic regurg, mild tricuspid regurg Carotid duplex: bilateral 20-39% stenoses of proximal ICA, antegrade flow in both vertebral arteries (see full report). ASA 81 mg PO daily Norvasc 10 mg PO daily Coreg 6.25 PO BID Hydralazine 50 mg PO TID Clonidine 0.3 mg PO Q8H Isosorbide Mononitrate 60 mg PO daily Cardura 2 mg PO HS Nicardipine drip Nephro consult, Dr. Mcgarry, help appreciated Opthlamology consult, Dr. Bae, help appreciated Cardio consult, Dr. Carson, help appreciated Cardiac enzymes 0.20-->0.28-->1.98-->1.43-->2.43-->2.24-->0.54-->0.21 f/u daily labs BNP 04555 3. ESTEFANI Bun/Cr: 62/3.7 Renal US: Medical renal disease, 1.6 cm simple cyst on upper pole of r kidney ( see full report). Nephrology consult, Dr. Rosen, help appreciated Urine metanephrines elevated, suspicious for Pheochromocytoma, needs confirmatory test 4. Dyspnea NORMA today CT chest/abd/pelvis: unremarkable (see full report) ECHO: LV normal size, mild concentric LVH, mild-mod impaired systolic function EF35-40, mild-mod hypokinesis apical anterior wall, mild mitral regurg, trace aortic regurg, mild tricuspid regurg Carotid duplex: bilateral 20-39% stenoses of proximal ICA, antegrade flow in both vertebral arteries (see full report). ASA 81 mg PO daily Norvasc 10 mg PO daily Coreg 6.25 PO BID Hydralazine 50 mg PO TID Clonidine 0.3 mg PO Q8H Isosorbide Mononitrate 60 mg PO daily Cardura 2 mg PO HS Nicardipine drip Nephro consult, Dr. Mcgarry, help appreciated Opthlamology consult, Dr. Bae, help appreciated Cardio consult, Dr. Carson, help appreciated Cardiac enzymes 0.20-->0.28-->1.98-->1.43-->2.43-->2.24-->0.54-->0.21 f/u daily labs BNP [address] abd/pelvis revealed 3.5 x 5 cm R ovarian cyst DIGESTER COOK consult, Dr. Meeks, help appreciated 6. Anemia Iron sucrose 200 mg IVPB daily transfused 2 units PRBC this admission 7. Glaucoma Tropicamide 1% 1 drop OU 8. Epitaxis Hydrocerin cream PRN Mathews nasal spray PRN 9. Abnormal LFTs Downtrending GI consult, Dr. Moran, help appreciated Surgery consulted, Dr. Zamarripa, help appreciated Abdominal US: fatty infilatration of the liver, gallbladder sludge without cholelithiasis, nonspecific thickening of gallbladder wall [see full report] HIDA scan: Normal ABXR: constipation 10. UTI UA showed blood and elevated leukocyte esterase Urine culture grew E. Coli Rocephin 1 gm IVPB daily 11. Prophylactic measures Pepcid 20 mg PO daily Colace 100 mg PO daily Miralax 17 gm PO BID Ensure enlive daily <[place] Linda - Last Filed: 09/22/16 17:22> Objective - Vital Signs/Intake and Output Vital Signs (last 24 hours): Temp Pulse Resp BP Pulse Ox 97.9 F 90 14 153/111 H 100 09/22/16 16:00 09/22/16 16:00 09/22/16 16:00 09/22/16 16:00 09/22/16 16:00 Intake and Output: 09/22/16 09/22/16 06:59 18:59 Intake Total 1000 Output Total 1000 Balance 0 - Medications Medications: Current Medications Amlodipine Besylate (Norvasc) 10 mg PO DAILY [facility] Last Admin: 09/22/16 09:51 Dose: 10 mg Aspirin (Ecotrin) 81 mg PO DAILY [facility] Last Admin: 09/22/16 09:53 Dose: 81 mg Clonidine HCl (Catapres) 0.3 mg PO Q8 [facility] Last Admin: 09/22/16 14:13 Dose: 0.3 mg Docusate Sodium (Colace) 100 mg PO DAILY [facility] Last Admin: 09/22/16 09:52 Dose: 100 mg Doxazosin Mesylate (Cardura) 2 mg PO HS [facility] Last Admin: 09/21/16 21:58 Dose: 2 mg Hydralazine HCl (Apresoline) 50 mg PO Q6 [facility] Nicardipine HCl (Cardene Iv Premix) 200 mls @ 50 mls/hr IV .Q4H PRN; Protocol; 5 MG/HR PRN Reason: TITRATE PER MD ORDER Last Admin: 09/22/16 15:45 Dose: 20 mls/hr Isosorbide Mononitrate (Imdur) 120 mg PO DAILY [facility] Lorazepam (Ativan) 0.5 mg IVP Q4H PRN; Protocol PRN Reason: Anxiety Last Admin: 09/20/16 19:11 Dose: 0.5 mg Morphine Sulfate (Morphine) 2 mg IVP Q4H PRN PRN Reason: Pain, moderate (4-7) Last Admin: 09/21/16 09:51 Dose: 2 mg Multi-Ingredient Cream (Hydrocerin Cream) 1 ea TOP BID PRN PRN Reason: Dry nasal passages Ondansetron HCl (Zofran Inj) 4 mg IVP Q8H PRN PRN Reason: Nausea/Vomiting Last Admin: 09/19/16 03:52 Dose: 4 mg Pantoprazole Sodium (Protonix Ec Tab) 40 mg PO ACB [facility] Last Admin: 09/22/16 08:21 Dose: 40 mg Polyethylene Glycol (Miralax) 17 gm PO BID [facility] Last Admin: 09/22/16 09:53 Dose: 17 gm Senna/Docusate Sodium (Senokot S 50 Mg-8.6 Mg) 1 tab PO DAILY [facility] Last Admin: 09/22/16 09:52 Dose: 1 tab Sodium Chloride ([place] Nasal [place]) 0 ml NS BID [facility] Last Admin: 09/22/16 09:58 Dose: 2 spr - Labs Labs: 09/22/16 05:00 09/22/16 05:00 PT 11.7 Seconds (9.9-11.8) 09/19/16 11:50 INR 1.08 (0.93-1.08) 09/19/16 11:50 APTT 26.4 Seconds (23.7-30.8) 09/13/16 10:30 Assessment and Plan - Assessment and Plan (Free Text) Assessment: Attending note; I have seen and examined the patient with the resident in CCU. patient's daughter by the bedside. Denies chest pain. tolerating diet. Patient is a 51 year old female with history of HTN, non compliant with medications at home, sickle cell trait, glaucoma, marijuana use, former alcohol abuser, OTC motrin use for headache on regular basis who presented with hypertensive emergency and found to have dehydration, hyponatremia, hypokalemia , elevated troponin, CHF due to systolic dysfunction (EF 35-40%), acute kidney injury, sepsis secondary to UTI and PRES syndrome. HTN; on cardene drip. po medications adjusted, BP is improving slowly. elevated metanephrine levels. 24-hour urine metanephrine is pending. Started on alpha cordelia. continue coreg,Prazosin, hydralazine, clonidine, Imdur and Norvasc. medication adjusted by nephrology. NORMA is negative for dissection. Acute on chronic kidney disease. creatinine is improving slowly. Nephrology follow-up appreciated. Tolerating diet. Abdominal ultrasound showed gallbladder sludge and negative Lovell sign.HIDA is negative. Elevated LFTs; improving. GI evaluation appreciated. ovarian cyst; needs follow-up as an outpatient with [employer]. anemia; patient got 2 units PRBC transfusion. hemoglobin is stable at 10. No active bleeding. the diagnosis, follow-up plan discussed with patient and patient' daughter in detail. out of bed to chair as tolerated. Upon discharge patient will follow up with Dr Evita Swann.
[2016-09-22] MEDS: Docusate-Senna 50 mg-8.6 mg Tab PO SCH (09:52)
[2016-09-22] MEDS: POLYETHYLENE GLYCOL 3350 17 GM/Dose PACKET PO SCH ×2 (09:53→17:41)
[2016-09-22] MEDS ORDERED: Propofol 10 mg/ml Inj (20 ML) ONE (10:54)
[2016-09-22] MEDS ORDERED: Midazolam 2 MG/2 ML VIAL ONE (10:54)
[2016-09-22] MEDS ORDERED: Lidocaine 2% Inj (20ml) ONE (10:54)
--- NOTE | 2016-09-22 11:35 | CP.CCUPN ---
<Melinda Ramirez - Last Filed: 09/22/16 13:04> CCU Subjective - Physician Review Events Since Last Encounter (Free Text): 09/22/16 13:04 Patient seen and examined bedside. BP better controlled, SBP 140-150s overnight. Patient denies CP, SOB, abd pain, back pain, n/v, fevers, chills. Has been NPO since midnight for NORMA today to r/o dissection. Critical Care Time Spent (in minutes): 40 CCU Objective - Vital Signs / Intake & Output Vital Signs (Last 4 hours): Vital Signs Pulse BP 09/22/16 09:51 64 158/76 H Intake and Output (Last 8hrs): Intake & Output 09/21/16 09/22/16 09/22/16 22:59 06:59 14:59 Intake Total 1380 1000 Output Total 1000 1000 Balance 380 0 Weight 167 lb 3.2 oz Intake: IV 800 600 Left Upper arm 200 Cardene 600 600 Oral 580 400 Output: Urine 1000 1000 Urethral (Cano) 1000 1000 Other: Voiding Method Bedside Commode # Bowel Movements 1 - Physical Exam Head: Positive for: Atraumatic, Normocephalic Pupils: Positive for: PERRL (No vision left eye) Extroacular Muscles: Positive for: EOMI Conjunctiva: Positive for: Normal Mouth: Positive for: Moist Mucous Membranes Neck: Positive for: Normal Range of Motion Respiratory/Chest: Positive for: Clear to Auscultation, Good Air Exchange. Negative for: Respiratory Distress, Accessory Muscle Use Cardiovascular: Positive for: Regular Rate and Rhythm, Normal S1, S2. Negative for: Murmurs Abdomen: Positive for: Normal Bowel Sounds. Negative for: Tenderness, Distention, Peritoneal Signs, Rebound Back: Positive for: Normal Inspection Upper Extremity: Positive for: Normal Inspection. Negative for: Cyanosis, Edema Lower Extremity: Positive for: Normal Inspection, NORMAL PULSES. Negative for: Edema, CALF TENDERNESS Neurological: Positive for: GCS=15, CN II-XII Intact, Speech Normal Skin: Positive for: Warm, Dry, Normal Color. Negative for: Rashes Psychiatric: Positive for: Alert, Oriented x 3, Normal Insight, Normal Concentration - Medications Active Medications: Active Medications Generic Name Dose Route Start Last Admin Trade Name Freq PRN Reason Stop Dose Admin Amlodipine Besylate 10 mg 09/15/16 12:05 09/22/16 09:51 Norvasc PO 10 mg DAILY ANNA Administration Aspirin 81 mg 09/14/16 10:00 09/22/16 09:53 Ecotrin PO 81 mg DAILY ANNA Administration Clonidine HCl 0.3 mg 09/19/16 14:00 09/22/16 05:24 Catapres PO 0.3 mg Q8 ANNA Administration Docusate Sodium 100 mg 09/14/16 10:00 09/22/16 09:52 Colace PO 100 mg DAILY ANNA Administration Doxazosin Mesylate 2 mg 09/21/16 22:00 09/21/16 21:58 Cardura PO 2 mg HS ANNA Administration Hydralazine HCl 50 mg 09/19/16 14:00 09/22/16 05:23 Apresoline PO 50 mg Q8 ANNA Administration Nicardipine HCl 200 mls @ 50 mls/hr 09/19/16 10:52 09/22/16 08:00 Cardene Iv Premix IV 20 mls/hr .Q4H PRN Administration TITRATE PER MD ORDER Protocol 5 MG/HR Isosorbide Mononitrate 60 mg 09/21/16 12:00 09/22/16 09:52 Imdur PO 60 mg DAILY ANNA Administration Lorazepam 0.5 mg 09/16/16 08:36 09/20/16 19:11 Ativan IVP 0.5 mg Q4H PRN Administration Anxiety Protocol Morphine Sulfate 2 mg 09/14/16 07:39 09/21/16 09:51 Morphine IVP 2 mg Q4H PRN Administration Pain, moderate (4-7) Multi-Ingredient Cream 1 ea 09/17/16 11:01 Hydrocerin Cream TOP BID PRN Dry nasal passages Ondansetron HCl 4 mg 09/19/16 03:45 09/19/16 03:52 Zofran Inj IVP 4 mg Q8H PRN Administration Nausea/Vomiting Pantoprazole Sodium 40 mg 09/18/16 12:45 09/22/16 08:21 Protonix Ec Tab PO 40 mg ACB ANNA Administration Polyethylene Glycol 17 gm 09/20/16 10:08 09/22/16 09:53 Miralax PO 17 gm BID ANNA Administration Senna/Docusate Sodium 1 tab 09/20/16 10:15 09/22/16 09:52 Senokot S 50 Mg-8.6 Mg PO 1 tab DAILY ANNA Administration Sodium Chloride 0 ml 09/19/16 12:30 09/22/16 09:58 [place] Nasal [place] NS 2 spr BID ANNA Administration - Patient Studies Lab Studies: Lab Studies 09/22/16 09/21/16 09/19/16 Range/Units 05:00 11:23 11:50 WBC 6.0 (4.5-11.0) 10^3/ul RBC 3.20 L (3.5-6.1) 10^6/uL Hgb 9.8 L (12.0-16.0) gm/dL Hct 27.6 L (36.0-48.0) % MCV 86.3 (80.0-105.0) fL MCH 30.6 (25.0-35.0) pg MCHC 35.5 (31.0-37.0) g/dl RDW 16.8 H (11.5-14.5) % Plt Count 263 (120.0-450.0) 10^3/uL MPV 11.1 H (7.0-11.0) fl Gran % 67.1 (50.0-68.0) % Lymph % (Auto) 21.5 L (22.0-35.0) % [place] % (Auto) 8.6 H (1.0-6.0) % Eos % (Auto) 2.5 (1.5-5.0) % Baso % (Auto) 0.3 (0.0-3.0) % Gran # 4.05 (1.4-6.5) Lymph # 1.3 (1.2-3.4) [place] # 0.5 (0.1-0.6) Eos # 0.2 (0.0-0.7) Baso # 0.02 (0.0-2.0) K/mm3 Sodium 131 L (132-148) mmol/L Potassium 3.9 (3.6-5.0) mmol/L Chloride 100 (98-107) mmol/L Carbon Dioxide 20 L (21-33) mmol/L Anion Gap 15 (10-20) BUN 62 H (7-21) mg/dL Creatinine 3.7 H (0.5-1.4) mg/dL Est GFR ( Amer) 16 Est GFR (Non-Af Amer) 13 Random Glucose 102 (70-110) mg/dL Calcium 8.2 L (8.4-10.5) mg/dL Phosphorus 4.8 H (2.5-4.5) mg/dL Magnesium 2.1 (1.7-2.2) mg/dL Total Bilirubin 0.4 (0.2-1.3) mg/dL AST 41 H (15-39) U/L ALT 178 H (7-56) U/L Alkaline Phosphatase 250 H (38-133) U/L Total Protein 6.3 (5.8-8.3) g/dL Albumin 3.0 (3.0-4.8) g/dL Globulin 3.3 gm/dL Albumin/Globulin Ratio 0.9 L (1.1-1.8) Lipase 134 (23-300) U/L Glomerular Base Mem IgG <1.0 (<1.0) AI Laboratory Results - last 24 hr 09/19/16 09/21/16 09/22/16 11:50 11:23 05:00 WBC 6.0 RBC 3.20 L Hgb 9.8 L Hct 27.6 L MCV 86.3 MCH 30.6 MCHC 35.5 RDW 16.8 H Plt Count 263 MPV 11.1 H Gran % 67.1 Lymph % (Auto) 21.5 L [place] % (Auto) 8.6 H Eos % (Auto) 2.5 Baso % (Auto) 0.3 Gran # 4.05 Lymph # 1.3 [place] # 0.5 Eos # 0.2 Baso # 0.02 Sodium 131 L Potassium 3.9 Chloride 100 Carbon Dioxide 20 L Anion Gap 15 BUN 62 H Creatinine 3.7 H Est GFR ( Amer) 16 Est GFR (Non-Af Amer) 13 Random Glucose 102 Calcium 8.2 L Phosphorus 4.8 H Magnesium 2.1 Total Bilirubin 0.4 AST 41 H ALT 178 H Alkaline Phosphatase 250 H Total Protein 6.3 Albumin 3.0 Globulin 3.3 Albumin/Globulin Ratio 0.9 L Lipase 134 Glomerular Base Mem IgG <1.0 Review of Systems - Constitutional Constitutional: absent: Fever, Chills - EENT Eyes: absent: Blurred Vision, Change in Vision, Diplopia Ears: absent: Dizziness - Cardiovascular Cardiovascular: absent: Chest Pain, Diaphoresis, Dyspnea, Palpitations - Respiratory Respiratory: absent: Cough, Dyspnea, Pain on Inspiration - Gastrointestinal Gastrointestinal: absent: Abdominal Pain, Nausea, Vomiting - Genitourinary Genitourinary: absent: Dysuria, Flank Pain - Musculoskeletal Musculoskeletal: absent: Back Pain, Neck Pain, Numbness Critical Care Progress Note - Ventilator Checklist PUD Prophalyxis: Yes DVT Prophylaxis: Yes - Nutrition Nutrition: Nutrition Category Date Time Status Heart Healthy Diet [DIET] Diets 09/18/16 Breakfast Ordered Assessment/Plan - Assessment and Plan (Free Text) Assessment: 51 yo F w h/o uncontrolled HTN admitted to ICU with hypertensive emergency, PRES syndrome, cardiomyopathy, ESTEFANI, vitreous hemorrhage, left retinal detachment now back to ICU for elevated BP again poorly responsive to Hydralazine and clonidine, on Cardene drip. Plan: Neuro: AAOx3, NAD MRI head shows extensive brainstem, basal ganglia and thalamic edema, no acute infarct or hemorrhage. Will take 3-6 months to see changes on MRI given current PRES syndrome Neuro recs appreciated re: re-imaging EEG showed diffuse slowing c/w BL cerebral dysfunction, no epileptiform activity Will need optho followup after discharge for retinal detachment Maintain normothermia CV: Hypertensive emergency on Cardene drip. Goal SBP 120-130 Norvasc 10mg PO QDay, Clonidine 0.3mg PO Q8hr, Doxazosin to 2mg PO QDay, increase Imdur to 120mg PO Qday, increase Hydralazine 50mg PO Q6hr. Cardene drip , titrate to SBP goal 150 For NORMA today to r/o dissection Continue ASA for stroke prevention No renal artery stenosis seen on Duplex. Medical renal Disease BL kidneys Pheochromocytoma suspected. Elevated metanephrines. Confirmatory workup pending. Avoid unopposed beta blockade. Continue hydration to prevent intravascular volume depletion common in pheo Maintain MAP >65 Pulm: No acute issues, able to protect airway. Comfortable and saturating in high 90s-100% on room air Maintain spo2>90 GI/: Pelvic US shows fundal leiomyoma, 4cm right ovarian cyst Abdominal X-ray showed constipation. Patient had another formed BM yesterday , no blood, non-mucinous. Continue Miralax, Senna, Colace GI ppx Hb currently stable, 9.8. GI recs appreciated HIDA negative Renal: ESTEFANI stable. Vasculitis workup pending as per nephro. Continue hydration as per nephro Endo: No acute issues A1C 4.2 Maintain euglycemia 140-180 ID: No Leukocytosis, afebrile. Rocephin for E coli UTI as per ID 09/14 blood cultures show coagulase negative Staph aureus - Repeat blood cultures negative Heme: Iron deficiency anemia. Continue venofer DVT/GI ppx: SCDs, Protonix, NPO, HHD after NORMA if OK with cardio - Date & Time Date: 09/22/16 Time: 11:35 <Stephen MOULTON,Jackelin H - Last Filed: 09/22/16 15:53> CCU Objective - Vital Signs / Intake & Output Vital Signs (Last 4 hours): Vital Signs Temp Pulse Resp BP Pulse Ox 09/22/16 14:13 72 183/92 H 09/22/16 12:06 67 33 H 100 09/22/16 12:05 69 24 147/83 100 09/22/16 12:01 67 21 142/61 100 09/22/16 12:00 98.7 F 65 21 142/61 100 09/22/16 11:55 63 135/71 99 09/22/16 11:50 62 25 H 134/74 99 Intake and Output (Last 8hrs): Intake & Output 09/22/16 09/22/16 09/22/16 06:59 14:59 22:59 Intake Total 1000 Output Total 1000 Balance 0 Weight 167 lb 3.2 oz Intake: IV 600 Cardene 600 Oral 400 Output: Urine 1000 Urethral (Cano) 1000 Other: Voiding Method Bedside Commode # Bowel Movements 1 - Medications Active Medications: Active Medications Generic Name Dose Route Start Last Admin Trade Name Latrice PRN Reason Stop Dose Admin Amlodipine Besylate 10 mg 09/15/16 12:05 09/22/16 09:51 Norvasc PO 10 mg DAILY ANNA Administration Aspirin 81 mg 09/14/16 10:00 09/22/16 09:53 Ecotrin PO 81 mg DAILY ANNA Administration Clonidine HCl 0.3 mg 09/19/16 14:00 09/22/16 14:13 Catapres PO 0.3 mg Q8 ANNA Administration Docusate Sodium 100 mg 09/14/16 10:00 09/22/16 09:52 Colace PO 100 mg DAILY ANNA Administration Doxazosin Mesylate 2 mg 09/21/16 22:00 09/21/16 21:58 Cardura PO 2 mg HS ANNA Administration Hydralazine HCl 50 mg 09/22/16 18:00 Apresoline PO Q6 ANNA Nicardipine HCl 200 mls @ 50 mls/hr 09/19/16 10:52 09/22/16 08:00 Cardene Iv Premix IV 20 mls/hr .Q4H PRN Administration TITRATE PER MD ORDER Protocol 5 MG/HR Isosorbide Mononitrate 120 mg 09/22/16 12:39 Imdur PO DAILY ANNA Lorazepam 0.5 mg 09/16/16 08:36 09/20/16 19:11 Ativan IVP 0.5 mg Q4H PRN Administration Anxiety Protocol Morphine Sulfate 2 mg 09/14/16 07:39 09/21/16 09:51 Morphine IVP 2 mg Q4H PRN Administration Pain, moderate (4-7) Multi-Ingredient Cream 1 ea 09/17/16 11:01 Hydrocerin Cream TOP BID PRN Dry nasal passages Ondansetron HCl 4 mg 09/19/16 03:45 09/19/16 03:52 Zofran Inj IVP 4 mg Q8H PRN Administration Nausea/Vomiting Pantoprazole Sodium 40 mg 09/18/16 12:45 09/22/16 08:21 Protonix Ec Tab PO 40 mg ACB ANNA Administration Polyethylene Glycol 17 gm 09/20/16 10:08 09/22/16 09:53 Miralax PO 17 gm BID ANNA Administration Senna/Docusate Sodium 1 tab 09/20/16 10:15 09/22/16 09:52 Senokot S 50 Mg-8.6 Mg PO 1 tab DAILY ANNA Administration Sodium Chloride 0 ml 09/19/16 12:30 09/22/16 09:58 [place] Nasal [place] NS 2 spr BID ANNA Administration - Patient Studies Lab Studies: Lab Studies 09/22/16 09/19/16 Range/Units 05:00 11:50 WBC 6.0 (4.5-11.0) 10^3/ul RBC 3.20 L (3.5-6.1) 10^6/uL Hgb 9.8 L (12.0-16.0) gm/dL Hct 27.6 L (36.0-48.0) % MCV 86.3 (80.0-105.0) fL MCH 30.6 (25.0-35.0) pg MCHC 35.5 (31.0-37.0) g/dl RDW 16.8 H (11.5-14.5) % Plt Count 263 (120.0-450.0) 10^3/uL MPV 11.1 H (7.0-11.0) fl Gran % 67.1 (50.0-68.0) % Lymph % (Auto) 21.5 L (22.0-35.0) % [place] % (Auto) 8.6 H (1.0-6.0) % Eos % (Auto) 2.5 (1.5-5.0) % Baso % (Auto) 0.3 (0.0-3.0) % Gran # 4.05 (1.4-6.5) Lymph # 1.3 (1.2-3.4) [place] # 0.5 (0.1-0.6) Eos # 0.2 (0.0-0.7) Baso # 0.02 (0.0-2.0) K/mm3 Sodium 131 L (132-148) mmol/L Potassium 3.9 (3.6-5.0) mmol/L Chloride 100 (98-107) mmol/L Carbon Dioxide 20 L (21-33) mmol/L Anion Gap 15 (10-20) BUN 62 H (7-21) mg/dL Creatinine 3.7 H (0.5-1.4) mg/dL Est GFR ( Amer) 16 Est GFR (Non-Af Amer) 13 Random Glucose 102 (70-110) mg/dL Calcium 8.2 L (8.4-10.5) mg/dL Phosphorus 4.8 H (2.5-4.5) mg/dL Magnesium 2.1 (1.7-2.2) mg/dL Total Bilirubin 0.4 (0.2-1.3) mg/dL AST 41 H (15-39) U/L ALT 178 H (7-56) U/L Alkaline Phosphatase 250 H (38-133) U/L Total Protein 6.3 (5.8-8.3) g/dL Albumin 3.0 (3.0-4.8) g/dL Globulin 3.3 gm/dL Albumin/Globulin Ratio 0.9 L (1.1-1.8) MONA Screen Negative (Negative) MONA Titer TEST NOT PERFORMED MONA Titer 2 TEST NOT PERFORMED MONA Pattern TEST NOT PERFORMED MONA Pattern 2 TEST NOT PERFORMED ANCA Screen Negative (NEGATIVE) c-ANCA Titer TNP p-ANCA Titer TNP Atypical p-ANCA Titer TNP Glomerular Base Mem IgG <1.0 (<1.0) AI Laboratory Results - last 24 hr 09/19/16 09/22/16 11:50 05:00 WBC 6.0 RBC 3.20 L Hgb 9.8 L Hct 27.6 L MCV 86.3 MCH 30.6 MCHC 35.5 RDW 16.8 H Plt Count 263 MPV 11.1 H Gran % 67.1 Lymph % (Auto) 21.5 L [place] % (Auto) 8.6 H Eos % (Auto) 2.5 Baso % (Auto) 0.3 Gran # 4.05 Lymph # 1.3 [place] # 0.5 Eos # 0.2 Baso # 0.02 Sodium 131 L Potassium 3.9 Chloride 100 Carbon Dioxide 20 L Anion Gap 15 BUN 62 H Creatinine 3.7 H Est GFR ( Amer) 16 Est GFR (Non-Af Amer) 13 Random Glucose 102 Calcium 8.2 L Phosphorus 4.8 H Magnesium 2.1 Total Bilirubin 0.4 AST 41 H ALT 178 H Alkaline Phosphatase 250 H Total Protein 6.3 Albumin 3.0 Globulin 3.3 Albumin/Globulin Ratio 0.9 L MONA Screen Negative MONA Titer TEST NOT PERFORMED MONA Titer 2 TEST NOT PERFORMED MONA Pattern TEST NOT PERFORMED MONA Pattern 2 TEST NOT PERFORMED ANCA Screen Negative c-ANCA Titer TNP p-ANCA Titer TNP Atypical p-ANCA Titer TNP Glomerular Base Mem IgG <1.0 Critical Care Progress Note - Nutrition Nutrition: Nutrition Category Date Time Status Heart Healthy Diet [DIET] Diets 09/22/16 Lunch Ordered Attending/Attestation - Attestation I have personally seen and examined this patient.: Yes I have fully participated in the care of the patient.: Yes I have reviewed all pertinent clinical information: Yes Notes (Text): 09/22/16 15:46 51 y/o F w/ HTN emergency On several P.O medications and I.V cardene . Trying to wean off I.V meds to keep SBP appx 150. PHEO workup continues, awaiting for chemical diagnosis before nuclear imaging. Stable Retinal detachment , opthamology aware. Subjective chest/ back pain - NORMA done today to r/o Dissection, which was negative. Estefani stable, urine output remains stable. dvt P - scd heparin sq tid pt/ot cc time 65 min
--- NOTE | 2016-09-22 11:38 | PN ---
DATE: 09/22/2016 SUBJECTIVE: The patient is lying in bed. Family members are at bedside. She denies any further abd ominal pain, nausea, vomiting, chest pain. She is tolerating solid foods. PHYSICAL EXAMINATION: VITAL SIGNS: Reveal temperature of 98.6, blood pressure 158/76, heart rate 64. HEENT: Reveals sclerae to be white, conjunctivae pink. NECK: Supple. CHEST: Lungs are clear. HEART: Reveals a regular rate and rhythm. ABDOMEN: Obese, soft, nontender. EXTREMITIES: Show no edema. LABORATORY DATA: Reveal hemoglobin of 9.8, BUN 62, creatinine 3.7. Liver enzymes continue to trend downward with AST down to 41, ALT down 178, alkaline phosphatase down to 250. Her troponins remain e levated at 0.21 from yesterday. IMPRESSION: A 51-year-old female admitted to the hospital with accelerated hypertension with acute o n chronic renal failure with chronic intermittent abdominal pain, chest pain, elevated liver enzymes which are improving. She does have a history of alcohol use recently. She does have fatty liver on radiographic imaging. RECOMMENDATIONS: The patient is to have a NORMA to rule out aortic dissection. Carlos Moran MD cc: [id number] TT: 09/22/2016 11:38:12 Confirmation # [id number] Dictation # [id number]
--- NOTE | 2016-09-22 14:44 | PN ---
DATE: 09/22/2016 The patient is seen in the intensive care unit. She remains on a Cardene infusion. She has family members present at bedside. She denies headaches, diplopia, chest pain or shortness of breath. She is mentating quite clearly. When I told her that her blood pressure was now 160/110, she felt as if this was her goal and was surprised to hear that it needed to be better controlled than it currently is. As stated above, she does remain on a Cardene infusion. PHYSICAL EXAMINATION: VITAL SIGNS: Blood pressure when I saw her was 165/110. In the last 24-hour period, minimum blood pressure has been 125/64 with a maximum of current value of 165/110, heart rate is 67, but has ranged from the mid 50s to approximately 68 beats per minute in the last 24-hour period. Temperature is 98.7 degrees and the patient has been afebrile for a 48-hour period. Respiratory rate is 33 breaths per minute, but has ranged from 21-39 breaths with an oxygen saturation of 100%, although it has ranged from 93/% to 100% over the last 24-hour period. I's and O's are 2380/2000. The remainder of the exam was as follows: HEENT: The patient was normocephalic, atraumatic. NECK: There was no jugular venous distention. Conjunctivae were neither pale nor icteric. Trachea was midline. There was no thyromegaly. CHEST: Lungs francois were grossly clear to auscultation although there were some scattered rales at both bases. There was no wheezing or rhonchi. Airflow appeared to be bilaterally symmetrical throughout both lungs. CARDIAC: Had a regular rate and rhythm without any rubs or gallops. ABDOMEN: Soft, mildly distended, but nontender, without any rebounding, guarding or rigidity. There was no hepatosplenomegaly and there were no masses. EXTREMITIES: Had trace to 1+ sacral edema. NEUROLOGIC: The patient was alert and oriented, nonfocal. VASCULAR: No bruits. SKIN: Intact. GENITOURINARY: Had no suprapubic tenderness. LABORATORY STUDIES: As follows: White count is 6, H and H 9.8/27.6 with a platelet count of 263,000. There are 67% neutrophils, 22% lymphocytes, 9% monocytes, and 3% eosinophils. Sodium is 131, potassium 3.9, chloride is 100, bicarbonate 20, BUN/creatinine is 62/3.7 with a glucose of 102. Calcium is 8.2 , but corrects to 9.0, since the albumin is 3.0, phosphorus is 4.8, magnesium is 2.1. Most recent troponin I was 0.21. AST/ALT is 41/178, alkaline phosphatase is 250. ANCA are negative. Anti-GBM antibodies negative as well. MONA is negative. There is no new microbiology data to report. A urine culture from 09/[address]. [address] scan of the patient's chest, abdomen and pelvis performed yesterday (without any contrast) revealed a small right pleural effusion and consolidation at the right lung base. The aorta could not be evaluated for dissection without IV contrast. Transesophageal echocardiogram was performed and the results are pending. IMPRESSION AND PLAN: The patient is a 51-year-old obese female with chronic hypertension, but noncompliant with antihypertensive therapy and an outpatient systolic blood pressure routinely at 300 mmHg as per the patient who has not taken any medications for several years on her own volition. Daily tobacco, alcohol and marijuana use prior to admission as well as daily use of multiple NSAIDs for symptomatic treatment of her headaches. Originally admitted with hypertensive emergency as manifest by posterior reversible encephalopathy syndrome as well as some headaches, nausea, vomiting, and chest pain as well as acute kidney injury. 1. The patient's blood pressure remains difficult to control and she is on a Cardene infusion in the intensive care unit. Additionally, she is on hydralazine 50 mg orally every 6 hours, Cardura 2 mg orally nightly, clonidine 0.3 mg orally every 8 hours, isosorbide mononitrate 120 mg orally daily, amlodipine 10 mg orally daily. Although she has late stage IV chronic kidney disease, I would still favor starting the patient on spironolactone 25 mg orally daily as long as we are able to monitor her electrolytes since it is quite effective at resistant hypertension. 2. We will not be able to control this patient's blood pressure unless she is started on a diuretic anyways, and in addition to spironolactone 25 mg daily, we can also start her on torsemide 10 mg orally twice daily, which will help mitigate against any of the hyperkalemia that may ensue with spironolactone. Her GFR is too low for her to respond to a thiazide-type diuretic. 3. Ideally, I think it would be prudent to taper her clonidine to off and instead use another agent as the patient has demonstrated history of noncompliance, having gone for 3 years without any antihypertensive therapy and also has poor insight and believes that her current blood pressure is well controlled. I fear that she will stop taking clonidine ultimately upon discharge and get rebound hypertension from catecholamine surge. 4. We will follow up the results of the transesophageal echocardiogram to rule out aortic dissection. The CT scan that she had is noted, however, dissection cannot be evaluated without intravenous contrast being administered. 5. Given the fact that the patient's kidneys appear echogenic on ultrasound, I believe we are more or less at her baseline creatinine and her renal function which corresponds to late stage IV chronic kidney disease. Unless her blood pressure is better controlled, she would not be a transplant candidate. 6. Gastrointestinal evaluation is also appreciated. The patient's transaminases are trending down; it is thought to be secondary to perhaps prior history of alcohol use, although she is also noted to have fatty liver on imaging. 7. For gastrointestinal prophylaxis, the patient is currently on pantoprazole and for deep vein thrombosis prophylaxis on sequential compression devices. 8. Since the patient's troponin was elevated on admission, she is on aspirin. Once her transaminases have decreased, she should be started on statin therapy. 9. We will need to continue 2 g sodium diet as well. The above was discussed with the patient as well as family members present at bedside. Review of systems, past medical history, social history and family history were all reviewed and there are no new changes. More than 35 minutes were spent in the care of this ICU patient today. Results of secondary workup of hypertension reveal an elevated rennin level. However, her aldosterone is not particularly elevated and thus T[place] could conceivably be an option for her. The results of her 24-hour urine to rule out pheochromocytoma appear to have been canceled. It is noted that the plasma normetanephrine was quite elevated as well as total metanephrine which is worrisome for pheochromocytoma. Given the fact that his blood tests are suspicious for pheochromocytoma, I would like to confirm these with a 24-hour urine collection and if, in fact, they are also consistent with pheochromocytoma, then the patient would need either an MRI with gadolinium or CT scan with IV contrast. Since she does have late stage IV chronic kidney disease, either of these would raise the risk of precipitating worsening renal function. However, pheochromocytoma can be a life threatening condition. The risk of iodinated contrast with CT scan would be contrast nephropathy and worsening renal function that may be reversible, whereas the risk of receiving gadolinium would be nephrogenic systemic fibrosis at some point in the future; however, much less of a risk of deterioration in her renal function and my opinion would be to pursue an MRI with gadolinium of her abdomen and pelvis to help identify locations of pheochromocytoma (which would statistically be in the adrenals), if the 24-hour urine collection confirms is to be the case. The above was discussed with the patient and family members at bedside. More than 35 minutes were spent in the care of this ICU patient today. Israel Mcgarry MD, PEPE cc: [id number] TT: 09/22/2016 14:43:48 Confirmation # [id number] Dictation # [id number]
--- NOTE | 2016-09-22 14:48 | PN ---
DATE: 09/22/2016 SUBJECTIVE: The patient denies any chest pain or back pain this morning. PHYSICAL EXAMINATION: VITAL SIGNS: Stable. CHEST: Clear. HEART: S1, S2 regular. EXTREMITIES: No edema. LABORATORIES: NORMA was performed and the findings are negative for aortic dissection in the visualize d segments of the aortic root and the proximal aortic arch. ASSESSMENT: 1. Uncontrolled hypertension. 2. Chronic renal insufficiency. 3. Borderline troponin elevation. 4. Status post cannabinoid abuse. RECOMMENDATIONS: Continue current hydralazine, Cardura, clonidine, aspirin, Imdur, Norvasc. The sonia e was discussed with the flotation tender, Dr. Mitchell, and with the primary physician, Dr. Linda. Misael Carson MD cc: [id number] TT: 09/22/2016 14:48:24 Confirmation # [id number] Dictation # [id number]
--- NOTE | 2016-09-22 15:15 | CP.PCM.PN ---
Subjective - Date & Time of Evaluation Date of Evaluation: 09/22/16 Time of Evaluation: 08:40 - Subjective Subjective: Comfortable in bed, not in distress, no fevers overnight. Objective - Vital Signs/Intake and Output Vital Signs (last 24 hours): Temp Pulse Resp BP Pulse Ox 98.7 F 72 33 H 183/92 H 100 09/22/16 12:00 09/22/16 14:13 09/22/16 12:06 09/22/16 14:13 09/22/16 12:06 Intake and Output: 09/22/16 09/22/16 06:59 18:59 Intake Total 1000 Output Total 1000 Balance 0 - Medications Medications: Current Medications Amlodipine Besylate (Norvasc) 10 mg PO DAILY [facility] Last Admin: 09/22/16 09:51 Dose: 10 mg Aspirin (Ecotrin) 81 mg PO DAILY [facility] Last Admin: 09/22/16 09:53 Dose: 81 mg Clonidine HCl (Catapres) 0.3 mg PO Q8 [facility] Last Admin: 09/22/16 14:13 Dose: 0.3 mg Docusate Sodium (Colace) 100 mg PO DAILY [facility] Last Admin: 09/22/16 09:52 Dose: 100 mg Doxazosin Mesylate (Cardura) 2 mg PO HS [facility] Last Admin: 09/21/16 21:58 Dose: 2 mg Hydralazine HCl (Apresoline) 50 mg PO Q6 [facility] Nicardipine HCl (Cardene Iv Premix) 200 mls @ 50 mls/hr IV .Q4H PRN; Protocol; 5 MG/HR PRN Reason: TITRATE PER MD ORDER Last Admin: 09/22/16 08:00 Dose: 20 mls/hr Isosorbide Mononitrate (Imdur) 120 mg PO DAILY [facility] Lorazepam (Ativan) 0.5 mg IVP Q4H PRN; Protocol PRN Reason: Anxiety Last Admin: 09/20/16 19:11 Dose: 0.5 mg Morphine Sulfate (Morphine) 2 mg IVP Q4H PRN PRN Reason: Pain, moderate (4-7) Last Admin: 09/21/16 09:51 Dose: 2 mg Multi-Ingredient Cream (Hydrocerin Cream) 1 ea TOP BID PRN PRN Reason: Dry nasal passages Ondansetron HCl (Zofran Inj) 4 mg IVP Q8H PRN PRN Reason: Nausea/Vomiting Last Admin: 09/19/16 03:52 Dose: 4 mg Pantoprazole Sodium (Protonix Ec Tab) 40 mg PO ACB [facility] Last Admin: 09/22/16 08:21 Dose: 40 mg Polyethylene Glycol (Miralax) 17 gm PO BID [facility] Last Admin: 09/22/16 09:53 Dose: 17 gm Senna/Docusate Sodium (Senokot S 50 Mg-8.6 Mg) 1 tab PO DAILY [facility] Last Admin: 09/22/16 09:52 Dose: 1 tab Sodium Chloride ([place]ulf Nasal [place]) 0 ml NS BID [facility] Last Admin: 09/22/16 09:58 Dose: 2 spr - Labs Labs: 09/22/16 05:00 09/22/16 05:00 PT 11.7 Seconds (9.9-11.8) 09/19/16 11:50 INR 1.08 (0.93-1.08) 09/19/16 11:50 APTT 26.4 Seconds (23.7-30.8) 09/13/16 10:30 - Constitutional Appears: Non-toxic, No Acute Distress - Head Exam Head Exam: NORMAL INSPECTION - ENT Exam ENT Exam: Mucous Membranes Moist - Neck Exam Neck Exam: absent: Lymphadenopathy, Meningismus - Respiratory Exam Respiratory Exam: Decreased Breath Sounds - Cardiovascular Exam Cardiovascular Exam: +S1, +S2 - GI/Abdominal Exam GI & Abdominal Exam: Soft. absent: Tenderness Assessment and Plan - Assessment and Plan (Free Text) Plan: Assessment S/P Systemic Inflammatory Response Syndrome probably secondary to hypertensive urgency / emergency with associated Posterior Reversible Encephalopathy Syndrome (PRES) and acute renal failure sepsis from urinary tract infection with E. coli; clinically improved and S/P treatment Coagulase negative Staph in one blood cx bottle, most likely contamination HTN, poorly-controlled history of glaucoma history of cataracts sickle cell trait S/P Caesarian section obesity with BMI 31 Plan continue to monitor off antibiotics and observe since she is at risk for nosocomial infections Will continue to monitor clinically
--- NOTE | 2016-09-22 15:38 | CARD ---
APPROVED REPORT EXAM: Transesophageal echocardiogram with color flow Doppler. INDICATION AORTIC DISSECTION Reason For Test : Rule out aortic dissection PROCEDURE After obtaining informed consent, patient underwent transesophageal echo in the ICU. Type of Sedation : Conscious Sedation Sedation was provided by anesthesiologist. Sedation was achieved with intravenously. Transesophageal probe was inserted and advanced into esophagus without difficulty. The NORMA was performed without complications. Throughout the procedure, the blood pressure, pulse oximetry, cardiac rhythm, and rate were monitored. The patient tolerated the procedure without adverse effects. Recovery from conscious sedation was uneventful and vital signs were stable. LEFT VENTRICLE The left ventricle is normal size. There is normal left ventricular wall thickness. Left ventricle systolic function is mildly to moderately impaired. No left ventricle thrombus noted on this study. RIGHT VENTRICLE The right ventricle is normal size. There is normal right ventricular wall thickness. The right ventricular systolic function is normal. ATRIA The left atrium size is normal. The right atrium size is normal. AORTIC VALVE The aortic valve is mildly to moderately thickened. No aortic regurgitation is present. MITRAL VALVE Mitral annular calcification is mild. <Conclusion> No Aortic dissection or aneurysmal dilatation in the visualized segments of the Aortic Root and Arch
[2016-09-23] MEDS: Nicardipine 20 MG/200 ML 200 ML IV PRN ×3 (03:51→22:07)
[2016-09-23 05:42] LABS: ADD MANUAL DIFF? NO
[2016-09-23 05:46] LABS: BASO # 0.01 K/mm3 (0.0-2.0); BASO % 0.2 % (0.0-3.0); EOS # 0.2 (0.0-0.7); EOS % 2.6 % (1.5-5.0); GRAN # 4.46 (1.4-6.5); GRAN % 71.7 % (50.0-68.0); LYMPH # 1.1 (1.2-3.4); LYMPH % 17.4 % (22.0-35.0); MEAN CELL VOLUME 85.6 fL (80.0-105.0); MEAN CORPUSCULAR HEMOGLOBIN 30.3 pg (25.0-35.0); MEAN CORPUSCULAR HGB CONC 35.4 g/dl (31.0-37.0); MONO # 0.5 (0.1-0.6); MONO % 8.1 % (1.0-6.0); PLATELET COUNT 266 10^3/uL (120.0-450.0); RED CELL DISTRIBUTION WIDTH 16.6 % (11.5-14.5); WHITE BLOOD COUNT 6.2 10^3/ul (4.5-11.0)
[2016-09-23 06:02] LABS: ALB/GLOB RATIO 0.9 (1.1-1.8); BILIRUBIN,TOTAL 0.3 mg/dL (0.2-1.3); CALCIUM 8.3 mg/dL (8.4-10.5); POTASSIUM 3.5 mmol/L (3.6-5.0); TOTAL PROTEIN 6.2 g/dL (5.8-8.3)
[2016-09-23] MEDS: Pantoprazole 40 mg EC Tab PO SCH (08:30)
--- NOTE | 2016-09-23 09:04 | CP.PCM.PN ---
<Luciano Mustafa - Last Filed: 09/23/16 12:32> Subjective - Date & Time of Evaluation Date of Evaluation: 09/23/16 Time of Evaluation: 09:04 - Subjective Subjective: PGY-1 Medicine Progress Note for Dr. Linda Patient seen and examined at bedside. No acute event overnight. Patient is emotional and tearing up in bed today again. She said she is experiencing pain and heaviness in both legs. Nicardipine drip was discontinued. Denied syncope, vertigo, dizziness/lightheadedness, weakness, fever/chills, cp, SOB, palpitations, abd pain, n/v/d, consitpation, incontinence, numbness/tingling. Objective - Vital Signs/Intake and Output Vital Signs (last 24 hours): Temp Pulse Resp BP Pulse Ox 98.4 F 68 22 145/75 99 09/23/16 04:00 09/23/16 06:00 09/23/16 06:00 09/23/16 06:00 09/23/16 06:00 Intake and Output: 09/23/16 09/23/16 06:59 18:59 Intake Total 1000 Output Total 2100 Balance -1100 - Medications Medications: Current Medications Amlodipine Besylate (Norvasc) 10 mg PO DAILY [facility] Last Admin: 09/22/16 09:51 Dose: 10 mg Aspirin (Ecotrin) 81 mg PO DAILY [facility] Last Admin: 09/22/16 09:53 Dose: 81 mg Clonidine HCl (Catapres) 0.3 mg PO Q8 [facility] Last Admin: 09/23/16 05:56 Dose: 0.3 mg Docusate Sodium (Colace) 100 mg PO DAILY [facility] Last Admin: 09/22/16 09:52 Dose: 100 mg Doxazosin Mesylate (Cardura) 2 mg PO HS [facility] Last Admin: 09/22/16 21:47 Dose: 2 mg Hydralazine HCl (Apresoline) 50 mg PO Q6 [facility] Last Admin: 09/23/16 05:55 Dose: 50 mg Isosorbide Mononitrate (Imdur) 120 mg PO DAILY [facility] Lorazepam (Ativan) 0.5 mg IVP Q4H PRN; Protocol PRN Reason: Anxiety Last Admin: 09/23/16 02:21 Dose: 0.5 mg Morphine Sulfate (Morphine) 2 mg IVP Q4H PRN PRN Reason: Pain, moderate (4-7) Last Admin: 09/21/16 09:51 Dose: 2 mg Multi-Ingredient Cream (Hydrocerin Cream) 1 ea TOP BID PRN PRN Reason: Dry nasal passages Ondansetron HCl (Zofran Inj) 4 mg IVP Q8H PRN PRN Reason: Nausea/Vomiting Last Admin: 09/19/16 03:52 Dose: 4 mg Pantoprazole Sodium (Protonix Ec Tab) 40 mg PO ACB [facility] Last Admin: 09/23/16 08:30 Dose: 40 mg Polyethylene Glycol (Miralax) 17 gm PO BID [facility] Last Admin: 09/22/16 17:41 Dose: 17 gm Senna/Docusate Sodium (Senokot S 50 Mg-8.6 Mg) 1 tab PO DAILY [facility] Last Admin: 09/22/16 09:52 Dose: 1 tab Sodium Chloride (Eagle Nasal [place]) 0 ml NS BID [facility] Last Admin: 09/22/16 17:42 Dose: 2 spr Spironolactone (Aldactone) 25 mg PO DAILY [facility] Last Admin: 09/22/16 18:27 Dose: 25 mg Torsemide (Demadex) 10 mg PO BID [facility] Last Admin: 09/22/16 18:27 Dose: 10 mg - Labs Labs: 09/23/16 05:00 09/23/16 05:00 PT 11.7 Seconds (9.9-11.8) 09/19/16 11:50 INR 1.08 (0.93-1.08) 09/19/16 11:50 APTT 26.4 Seconds (23.7-30.8) 09/13/16 10:30 - Constitutional Appears: In Acute Distress - Head Exam Head Exam: ATRAUMATIC, NORMOCEPHALIC - Eye Exam Eye Exam: EOMI, Normal appearance Pupil Exam: PERRL - ENT Exam ENT Exam: Mucous Membranes Moist - Neck Exam Neck Exam: Normal Inspection - Respiratory Exam Respiratory Exam: Clear to Ausculation Bilateral, NORMAL BREATHING PATTERN - Cardiovascular Exam Cardiovascular Exam: REGULAR RHYTHM, +S1, +S2 - GI/Abdominal Exam GI & Abdominal Exam: Soft, Normal Bowel Sounds. absent: Tenderness - Extremities Exam Extremities Exam: Normal Capillary Refill, Pedal Edema, Tenderness - Back Exam Back Exam: absent: CVA tenderness (L), CVA tenderness (R) - Neurological Exam Neurological Exam: Alert, Awake, CN II-XII Intact, Oriented x3 - Psychiatric Exam Psychiatric exam: Normal Affect, Normal Mood - Skin Skin Exam: Dry, Intact, Normal Color, Warm Assessment and Plan - Assessment and Plan (Free Text) Plan: 51 F with history of HTN, non compliant with medications at home, sickle cell trait, glaucoma, marijuana use, former alcohol abuser who presented with hypertensive emergency and found to have dehydration, hyponatremia, hypokalemia , elevated troponin, CHF due to systolic dysfunction (EF 35-40%), acute kidney injury, sepsis secondary to UTI and PRES syndrome. 1. Hypertensive Emergency ICU NORMA: no evidence of dissection or aortic root dilatation Re-Consult Neuro for re-evaluation of PRES, Dr. Rhonda Anne, help appreicated CT chest/abd/pelvis: unremarkable (see full report) ECHO: LV normal size, mild concentric LVH, mild-mod impaired systolic function EF35-40, mild-mod hypokinesis apical anterior wall, mild mitral regurg, trace aortic regurg, mild tricuspid regurg Renal US: Medical renal disease, 1.6 cm simple cyst on upper pole of r kidney ( see full report). MRI Brain: extensice signal abnormality in brainstem and basal ganglia bilaterally, particularly thalami, suspicious for edema. Extensive white matter signal abnormality in cerebral hemispheresbilaterally. Uncertain etiology, could be hypertensive/infectious/inflammatory encephalopathy extensivve demyelinating disease, toxic insult, or underlying metabolic abnormality (see full report). CT head: extensive hypodensity in the perventricular white matter, sheyla, and cerebellar white matter. Could represent vasogenic edema related to HTN or chronic microvascular disease (see full report). CT chest: mild cardiomegaly, very mild emphysematous changes in lung apices bilaterally (see full report). CT abd/pelvos: Right ovarian cyst (see full report). Carotid duplex: bilateral 20-39% stenoses of proximal ICA, antegrade flow in both vertebral arteries (see full report). ASA 81 mg PO daily Aldactone 25 mg PO daily Norvasc 10 mg PO daily Hydralazine 50 mg PO Q6H Clonidine 0.3 mg PO Q8H Isosorbide Mononitrate 120 mg PO daily Torsemide 10 mg PO BID Cardura 2 mg PO HS Nephro consult, Dr. Mcgarry, help appreciated Opthlamology consult, Dr. Bae, help appreciated Cardio consult, Dr. Carson, help appreciated Cardiac enzymes 0.20-->0.28-->1.98-->1.43-->2.43-->2.24-->0.54-->0.21 f/u daily labs Urine metanephrines elevated, suspicious for Pheochromocytoma Heart healthy diet 2. Chest Pain NORMA: no evidence of dissection or aortic root dilatation CT chest/abd/pelvis: unremarkable (see full report) ECHO: LV normal size, mild concentric LVH, mild-mod impaired systolic function EF35-40, mild-mod hypokinesis apical anterior wall, mild mitral regurg, trace aortic regurg, mild tricuspid regurg Carotid duplex: bilateral 20-39% stenoses of proximal ICA, antegrade flow in both vertebral arteries (see full report). ASA 81 mg PO daily Aldactone 25 mg PO daily Norvasc 10 mg PO daily Hydralazine 50 mg PO Q6H Clonidine 0.3 mg PO Q8H Isosorbide Mononitrate 120 mg PO daily Torsemide 10 mg PO BID Cardura 2 mg PO HS Nephro consult, Dr. Mcgarry, help appreciated Opthlamology consult, Dr. Bae, help appreciated Cardio consult, Dr. Carson, help appreciated Cardiac enzymes 0.20-->0.28-->1.98-->1.43-->2.43-->2.24-->0.54-->0.21 f/u daily labs BNP 29325 3. ESTEFANI Bun/Cr: 60/3.5 Renal US: Medical renal disease, 1.6 cm simple cyst on upper pole of r kidney ( see full report). Nephrology consult, Dr. Rosen, help appreciated Urine metanephrines elevated, suspicious for Pheochromocytoma, needs confirmatory test 4. Dyspnea NORMA: no evidence of dissection or aortic root dilatation CT chest/abd/pelvis: unremarkable (see full report) ECHO: LV normal size, mild concentric LVH, mild-mod impaired systolic function EF35-40, mild-mod hypokinesis apical anterior wall, mild mitral regurg, trace aortic regurg, mild tricuspid regurg Carotid duplex: bilateral 20-39% stenoses of proximal ICA, antegrade flow in both vertebral arteries (see full report). ASA 81 mg PO daily Aldactone 25 mg PO daily Norvasc 10 mg PO daily Hydralazine 50 mg PO Q6H Clonidine 0.3 mg PO Q8H Isosorbide Mononitrate 120 mg PO daily Torsemide 10 mg PO BID Cardura 2 mg PO HS Nephro consult, Dr. Mcgarry, help appreciated Opthlamology consult, Dr. Bae, help appreciated Cardio consult, Dr. Carson, help appreciated Cardiac enzymes 0.20-->0.28-->1.98-->1.43-->2.43-->2.24-->0.54-->0.21 f/u daily labs BNP [address] abd/pelvis revealed 3.5 x 5 cm R ovarian cyst [employer] ARCHITECT consult, Dr. Meeks, help appreciated 6. Anemia Iron sucrose 200 mg IVPB daily transfused 2 units PRBC this admission 7. Glaucoma Tropicamide 1% 1 drop OU 8. Epitaxis Hydrocerin cream PRN Eagle nasal spray PRN 9. Abnormal LFTs Downtrending GI consult, Dr. Moran, help appreciated Surgery consulted, Dr. Zamarripa, help appreciated Abdominal US: fatty infilatration of the liver, gallbladder sludge without cholelithiasis, nonspecific thickening of gallbladder wall [see full report] HIDA scan: Normal ABXR: constipation 10. UTI UA showed blood and elevated leukocyte esterase Urine culture grew E. Coli Rocephin 1 gm IVPB daily 11. Prophylactic measures Pepcid 20 mg PO daily Colace 100 mg PO daily Miralax 17 gm PO BID Ensure enlive daily <[place] Linda - Last Filed: 09/24/16 17:18> Objective - Vital Signs/Intake and Output Vital Signs (last 24 hours): Temp Pulse Resp BP Pulse Ox 98.9 F 63 27 H 145/80 97 09/24/16 16:00 09/24/16 17:06 09/24/16 16:00 09/24/16 17:06 09/24/16 16:00 Intake and Output: 09/24/16 09/24/16 06:59 18:59 Intake Total 1080 1025 Output Total 2475 900 Balance -1395 125 - Medications Medications: Current Medications Amlodipine Besylate (Norvasc) 10 mg PO DAILY [facility] Last Admin: 09/24/16 09:23 Dose: 10 mg Aspirin (Ecotrin) 81 mg PO DAILY [facility] Last Admin: 09/24/16 09:22 Dose: 81 mg Carvedilol (Coreg) 12.5 mg PO BID [facility] Last Admin: 09/24/16 17:06 Dose: 12.5 mg Clonidine HCl (Catapres) 0.3 mg PO Q8 [facility] Last Admin: 09/24/16 13:21 Dose: 0.3 mg Docusate Sodium (Colace) 100 mg PO DAILY [facility] Last Admin: 09/24/16 09:22 Dose: 100 mg Doxazosin Mesylate (Cardura) [address] [facility] Hydralazine HCl (Apresoline) 50 mg PO Q6 [facility] Last Admin: 09/24/16 17:05 Dose: 50 mg Nicardipine HCl (Cardene Iv Premix) 200 mls @ 50 mls/hr IV .Q4H PRN; Protocol; 5 MG/HR PRN Reason: TITRATE PER MD ORDER Last Titration: 09/24/16 14:49 Dose: 0 mg/hr Isosorbide Mononitrate (Imdur) 120 mg PO DAILY [facility] Last Admin: 09/24/16 09:23 Dose: 120 mg Lorazepam (Ativan) 0.5 mg IVP Q4H PRN; Protocol PRN Reason: Anxiety Last Admin: 09/24/16 17:07 Dose: 0.5 mg Morphine Sulfate (Morphine) 2 mg IVP Q4H PRN PRN Reason: Pain, moderate (4-7) Last Admin: 09/21/16 09:51 Dose: 2 mg Multi-Ingredient Cream (Hydrocerin Cream) 1 ea TOP BID PRN PRN Reason: Dry nasal passages Ondansetron HCl (Zofran Inj) 4 mg IVP Q8H PRN PRN Reason: Nausea/Vomiting Last Admin: 09/19/16 03:52 Dose: 4 mg Pantoprazole Sodium (Protonix Ec Tab) 40 mg PO ACB [facility] Last Admin: 09/24/16 08:24 Dose: 40 mg Polyethylene Glycol (Miralax) 17 gm PO BID [facility] Last Admin: 09/24/16 17:06 Dose: Not Given Senna/Docusate Sodium (Senokot S 50 Mg-8.6 Mg) 1 tab PO DAILY [facility] Last Admin: 09/24/16 09:22 Dose: 1 tab Sodium Chloride ([place]agle Nasal [place]) 0 ml NS BID [facility] Last Admin: 09/24/16 09:48 Dose: 1 spr Spironolactone (Aldactone) 50 mg PO DAILY [facility] Last Admin: 09/24/16 09:22 Dose: 50 mg Torsemide (Demadex) 10 mg PO BID [facility] Last Admin: 09/24/16 17:06 Dose: 10 mg - Labs Labs: 09/24/16 06:00 09/24/16 06:00 PT 11.7 Seconds (9.9-11.8) 09/19/16 11:50 INR 1.08 (0.93-1.08) 09/19/16 11:50 APTT 26.4 Seconds (23.7-30.8) 09/13/16 10:30 Assessment and Plan - Assessment and Plan (Free Text) Assessment: Attending note; I have seen and examined the patient with the resident in CCU. patient's daughter by the bedside. Denies chest pain. tolerating diet. Patient is a 51 year old female with history of HTN, non compliant with medications at home, sickle cell trait, glaucoma, marijuana use, former alcohol abuser, OTC motrin use for headache on regular basis who presented with hypertensive emergency and found to have dehydration, hyponatremia, hypokalemia , elevated troponin, CHF due to systolic dysfunction (EF 35-40%), acute kidney injury, sepsis secondary to UTI and PRES syndrome. HTN; started back on cardene drip. po medications adjusted, BP is improving slowly. elevated metanephrine levels. 24-hour urine metanephrine is pending. continue Prazosin, hydralazine, clonidine, Imdur and Norvasc. medication adjusted today. NORMA is negative for dissection. Acute on chronic kidney disease. creatinine is improving slowly. Nephrology follow-up appreciated. Tolerating diet. Abdominal ultrasound showed gallbladder sludge and negative Lovell sign.HIDA is negative. Elevated LFTs; improving. GI evaluation appreciated. anemia; patient got 2 units PRBC transfusion. hemoglobin is stable at 9.8. No active bleeding. the diagnosis, follow-up plan discussed with patient and patient' daughter in detail. out of bed to chair as tolerated. Upon discharge patient will follow up with Dr Evita Swann. Attending/Attestation - Attestation I have personally seen and examined this patient.: Yes I have fully participated in the care of the patient.: Yes I have reviewed all pertinent clinical information, including history, physical exam and plan: Yes
--- NOTE | 2016-09-23 09:05 | PN ---
DATE: 09/23/2016 The patient is seen and examined at bedside. She is comfortable. She talks full sentences. She is not in respiratory or otherwise distress. The patient is off of Cardene drip. PHYSICAL EXAMINATION: VITAL SIGNS: Blood pressure is 149/84, heart rate 66, oxygen saturation 100% on room air, respiratory rate 21. HEAD AND NECK: Atraumatic. LUNGS: Clear to auscultation bilaterally. HEART: Regular rate and rhythm. S1, S2 normal. ABDOMEN: Soft, nontender, nondistended. NEUROLOGIC: The patient moves all extremities spontaneously. SKIN: Moist. PSYCHIATRIC: The patient is alert and oriented x 3. MUSCULOSKELETAL: No C/C/E. LABS: WBC 6.2, hemoglobin 9.9, platelet count 266. Sodium 134, potassium 3.5, chloride 101, carbon dioxide 20. BUN 60, creatinine 3.5. Glucose 104. AST 37 , ALT 143, alkaline phosphatase 238. MEDICATIONS: Aldactone, hydralazine, Ativan p.r.n., Cardura, clonidine, Demadex , aspirin, isosorbide mononitrate, morphine p.r.n., amlodipine, Protonix, Zofran p.r.n. ASSESSMENT AND PLAN: This is a 51-year-old lady with uncontrolled/malignant/ refractory hypertension who initially presented with hypertensive emergency, which was very hard to control off of continious antihypertensive IV drip. Very thorough workup was conducted while she was in the hospital, which showed low aldosterone/renin ratio and significant elevation of normetanephrine and metanephrine. The patient is on multiple antihypertensive medications. I will speak with nephrology service about potential phentolamine treatment or further workup for pheochromocytoma and hyperaldosteronism. I will continue to target euvolemia, euglycemia, normothermia, and oxygen saturation more than 90%. I will also touch base with the nephrology service about the range of blood pressure that would be acceptable for the patient to maintain within autoregulatory range for kidneys and brain. ccm time 40 min Rafi Myers MD cc: [id number] TT: 09/23/2016 09:05:08 Confirmation # [id number] Dictation # [id number] jn DOMINGO
[2016-09-23] MEDS: Docusate-Senna 50 mg-8.6 mg Tab PO SCH (09:16)
[2016-09-23] MEDS: POLYETHYLENE GLYCOL 3350 17 GM/Dose PACKET PO SCH ×2 (09:24→17:46)
[2016-09-23] MEDS: Potassium Chloride 20 mEq ER Tab PO STA ×2 (10:07→10:15)
--- NOTE | 2016-09-23 10:36 | PN ---
DATE: 09/23/2016 SUBJECTIVE: The patient is lying in bed, comfortable. She denies any abdominal pain, chest pain, na usea or vomiting. PHYSICAL EXAMINATION: VITAL SIGNS: Reveal afebrile, blood pressure 164/91, heart rate is 67. ABDOMEN: Obese, soft, nontender. LABORATORY DATA: Reveal hemoglobin 9.9. Chemistries reveal AST down to 37, ALT down to 143, alkalin e phosphatase down to 238. IMPRESSION: A 51-year-old female admitted to the hospital with hypertensive crisis with acute on chr onic renal failure, elevated liver enzymes. Her elevated liver enzymes are trending downward. She d oes have a history of alcohol use. RECOMMENDATIONS: 1. Continue supportive care. 2. Follow transaminases. Carlos Moran MD cc: [id number] TT: 09/23/2016 10:35:36 Confirmation # [id number] Dictation # [id number]
--- NOTE | 2016-09-23 14:52 | PN ---
DATE: 09/23/2016 The patient is currently eating. She denies any chest pain or back pain. PHYSICAL EXAMINATION: VITAL SIGNS: Blood pressure 209/80, heart rate 83, temperature 97.5, respirations 20. HEENT: Pale conjunctivae. CHEST: Clear. HEART: S1, S2 regular. EXTREMITIES: No edema. LABORATORIES: Today's BUN and creatinine of 60 and 3.5, potassium 3.5. Alkaline phosphatase is elev ated to 138. Hemoglobin and hematocrit 9.9 and 28.2, white count and platelet count are within jeny l limits. ASSESSMENT: 1. Status post cannabinoid abuse. 2. Uncontrolled hypertension. 3. Chronic renal insufficiency. 4. Anemia. RECOMMENDATIONS: Continue current Aldactone, hydralazine, IV Cardene, clonidine, Cardura, Imdur, Nor vasc and Protonix. Misael Carson MD cc: [id number] TT: 09/23/2016 14:52:19 Confirmation # [id number] Dictation # [id number] cn
--- NOTE | 2016-09-23 17:36 | US ---
HISTORY: Leg pain and swelling. Evaluate for DVT PHYSICIAN(S): Charlie Donis MD. TECHNIQUE: Duplex sonography and color-flow Doppler with graded compression were used to evaluate the deep venous systems of both lower extremities. The exam is limited by edema. FINDINGS: The visualized deep venous systems of both lower extremities are sonographically normal and compressible. Normal wave forms and augmentation are seen. There is no sonographic evidence for deep venous thrombosis in the visualized segments of both lower extremities. IMPRESSION: No sonographic evidence for deep venous thrombosis in the visualized segments of both lower extremities.
--- NOTE | 2016-09-23 22:41 | CP.PCM.PN ---
Subjective - Date & Time of Evaluation Date of Evaluation: 09/23/16 Time of Evaluation: 12:00 - Subjective Subjective: Patient currently denying any chest/epigastric pain; left eye still with no vision at all; reporting being aggravated due to job circumstances; Objective - Vital Signs/Intake and Output Vital Signs (last 24 hours): Temp Pulse Resp BP Pulse Ox 97.6 F 71 22 184/77 H 100 09/23/16 20:00 09/23/16 21:39 09/23/16 20:00 09/23/16 21:39 09/23/16 20:53 Intake and Output: 09/23/16 09/24/16 18:59 06:59 Intake Total 892 Output Total 1250 Balance -358 - Medications Medications: Current Medications Amlodipine Besylate (Norvasc) 10 mg PO DAILY [facility] Last Admin: 09/23/16 09:19 Dose: 10 mg Aspirin (Ecotrin) 81 mg PO DAILY [facility] Last Admin: 09/23/16 09:17 Dose: 81 mg Clonidine HCl (Catapres) 0.3 mg PO Q8 [facility] Last Admin: 09/23/16 21:39 Dose: 0.3 mg Docusate Sodium (Colace) 100 mg PO DAILY [facility] Last Admin: 09/23/16 09:16 Dose: 100 mg Doxazosin Mesylate (Cardura) 2 mg PO HS [facility] Last Admin: 09/23/16 21:40 Dose: 2 mg Hydralazine HCl (Apresoline) 50 mg PO Q6 [facility] Last Admin: 09/23/16 17:45 Dose: 50 mg Nicardipine HCl (Cardene Iv Premix) 200 mls @ 50 mls/hr IV .Q4H PRN; Protocol; 5 MG/HR PRN Reason: TITRATE PER MD ORDER Last Admin: 09/23/16 22:07 Dose: 25 mls/hr Isosorbide Mononitrate (Imdur) 120 mg PO DAILY [facility] Last Admin: 09/23/16 09:17 Dose: 120 mg Lorazepam (Ativan) 0.5 mg IVP Q4H PRN; Protocol PRN Reason: Anxiety Last Admin: 09/23/16 21:40 Dose: 0.5 mg Morphine Sulfate (Morphine) 2 mg IVP Q4H PRN PRN Reason: Pain, moderate (4-7) Last Admin: 09/21/16 09:51 Dose: 2 mg Multi-Ingredient Cream (Hydrocerin Cream) 1 ea TOP BID PRN PRN Reason: Dry nasal passages Ondansetron HCl (Zofran Inj) 4 mg IVP Q8H PRN PRN Reason: Nausea/Vomiting Last Admin: 09/19/16 03:52 Dose: 4 mg Pantoprazole Sodium (Protonix Ec Tab) 40 mg PO ACB [facility] Last Admin: 09/23/16 08:30 Dose: 40 mg Polyethylene Glycol (Miralax) 17 gm PO BID [facility] Last Admin: 09/23/16 17:46 Dose: 17 gm Senna/Docusate Sodium (Senokot S 50 Mg-8.6 Mg) 1 tab PO DAILY [facility] Last Admin: 09/23/16 09:16 Dose: 1 tab Sodium Chloride ([place] Nasal [place]) 0 ml NS BID [facility] Last Admin: 09/23/16 17:50 Dose: Not Given Spironolactone (Aldactone) 25 mg PO DAILY [facility] Last Admin: 09/23/16 09:17 Dose: 25 mg Torsemide (Demadex) 10 mg PO BID [facility] Last Admin: 09/23/16 17:45 Dose: 10 mg - Labs Labs: 09/23/16 05:00 09/23/16 05:00 PT 11.7 Seconds (9.9-11.8) 09/19/16 11:50 INR 1.08 (0.93-1.08) 09/19/16 11:50 APTT 26.4 Seconds (23.7-30.8) 09/13/16 10:30 - Constitutional Appears: Well, No Acute Distress - Head Exam Head Exam: NORMAL INSPECTION - Eye Exam Eye Exam: Normal appearance. absent: Scleral icterus - ENT Exam ENT Exam: Mucous Membranes Moist - Neck Exam Neck Exam: Normal Inspection - Respiratory Exam Respiratory Exam: NORMAL BREATHING PATTERN Additional comments: Minimal bilateral insp basal rhales; - Cardiovascular Exam Cardiovascular Exam: REGULAR RHYTHM, +S1, +S2 - GI/Abdominal Exam GI & Abdominal Exam: Soft. absent: Distended, Tenderness - Exam Exam: absent: Bladder Distension - Extremities Exam Additional comments: Bilateral moderate lower leg edema; - Neurological Exam Neurological Exam: Alert, Awake, Oriented x3 - Psychiatric Exam Additional comments: depressed mood; - Skin Skin Exam: Warm. absent: Cyanosis Assessment and Plan (1) Acute kidney injury Assessment & Plan: ESTEFANI on CKD; exact baseline creat unknown but imaging showing thin cortices; acute renal failure in the setting of malignant htn and the need to lower BP emergently, serum creatinine mildly improving; -continue BP control with target SBP in 150-160's range Status: Acute (2) PRES (posterior reversible encephalopathy syndrome) Assessment & Plan: Per MRI findings and presentation with htn emergency; -continue to keep diastolic BP < 110 Status: Acute (3) Hypertensive emergency Assessment & Plan: Off nicardipine drip; doxazosin dose increased yesterday to 2 mg qhs with improved BP this morning; continue with rest of regimen; will benefit from B- blockers as well after patient has been on alpha blockade for a few more days; Status: Acute (4) Malignant hypertension Assessment & Plan: Workup in progress for pheochromocytoma, awaiting 24 hr urine metanephrine study ; if confirmatory, patient will need imaging study of abd, either CT w/ contrast or MRI w/ IZZY; patient was explained the risks and benefits of both ( risk of precipitating need for dialysis with the former and risk of nephrogenic systemic fibrosis with the latter); as renal function is showing some improvement, will hold off a few days before making a decision; Status: Acute (5) CHF (congestive heart failure) Assessment & Plan: Systolic dysfunction per NORMA (done yesterday to r/o aortic dissection, negative study); volume excess on exam, agree with loop diuretics as well as aldactone; may need higher doses of diuretics given decreased GFR; Status: Acute
[2016-09-24] MEDS: Nicardipine 20 MG/200 ML 200 ML IV PRN ×3 (05:31→14:05)
[2016-09-24 06:27] LABS: HEMATOCRIT 28.2 % (36.0-48.0); MEAN CELL VOLUME 86.5 fL (80.0-105.0); MEAN CORPUSCULAR HEMOGLOBIN 30.1 pg (25.0-35.0); MEAN CORPUSCULAR HGB CONC 34.8 g/dl (31.0-37.0); MEAN PLATELET VOLUME 11.3 fl (7.0-11.0); PLATELET COUNT 275 10^3/uL (120.0-450.0); RED CELL DISTRIBUTION WIDTH 16.2 % (11.5-14.5)
[2016-09-24 06:32] LABS: ADD MANUAL DIFF? YES
[2016-09-24 06:59] LABS: ANISOCYTOSIS SLIGHT; BAND 2 % (0-2); EOSINOPHIL 2 % (0.0-3.0); NEUTROPHIL 73 % (50.0-70.0); PLATELET ESTIMATE NORMAL (NORMAL)
[2016-09-24 07:00] LABS: HYPOCHROMIA SLIGHT
[2016-09-24 07:10] LABS: ALB/GLOB RATIO 0.9 (1.1-1.8); BILIRUBIN,TOTAL 0.4 mg/dL (0.2-1.3); CALCIUM 8.4 mg/dL (8.4-10.5); MAGNESIUM 1.8 mg/dL (1.7-2.2); PHOSPHOROUS 4.5 mg/dL (2.5-4.5); POTASSIUM 3.4 mmol/L (3.6-5.0); TOTAL PROTEIN 6.3 g/dL (5.8-8.3)
--- NOTE | 2016-09-24 08:10 | CON ---
DATE: 09/23/2016 In CCU, 129, room 5. This is a 51-year-old female with known history of hypertension and dyslipidemia with underlying sick le cell trait and has now been admitted because of marked episodes of dizziness, lightheadedness and generalized body weakness. She also developed ____ chest pains ____. PAST MEDICAL HISTORY: ____ history of hypertension and dyslipidemia ____ as noted, history of ____. FAMILY HISTORY: Positive for diabetes and hypertension. SOCIAL HISTORY: The patient admits to polysubstance abuse and smokes a pack a ____ for 30 years now. She admits to ____ alcohol ____. Also, admits to occasional marijuana use and as mentioned, she sm okes a pack a day for 30 years. PAST SURGICAL HISTORY: ____. REVIEW OF SYSTEMS: Admits ____. PHYSICAL EXAMINATION: ____. ABDOMEN: Flat, soft with positive bowel sounds. EXTREMITIES: No peripheral edema. Pulses are +2 bilaterally. LABORATORIES: ____. ASSESSMENT: This is ____ and we will also obtain serial chemistries and supplement accordingly as ne eded. We will ____ monitoring is being undertaken at this time. The CAT scan of the abdomen and pel vis did not show any ____ tumor as noticed ____ general ____ hypertension ____. We will also do a pl asma-free metanephrine to ____ syndrome as noted. We will obtain serial chemistries and supplement a ccordingly as needed. We will also ____ hemoglobin A1c to confirm her prior glycemic control kaseyethe r with baseline plasma aldosterone and renin activity ____ plasma cortisol and ACTH level as ordered ____. We will follow. Imani Zambrano MD cc: [id number] TT: 09/24/2016 08:08:53 Confirmation # [id number] Dictation # [id number] en
[2016-09-24] MEDS: Pantoprazole 40 mg EC Tab PO SCH (08:24)
[2016-09-24] MEDS ORDERED: Potassium Chloride 20 mEq ER Tab PO STA (08:45)
--- NOTE | 2016-09-24 08:54 | CP.PCM.PN ---
<Luciano Mustafa - Last Filed: 09/24/16 12:28> Subjective - Date & Time of Evaluation Date of Evaluation: 09/24/16 Time of Evaluation: 07:50 - Subjective Subjective: PGY-1 Medicine Progress Note for Dr. Linda Patient seen and examined at bedside. No acute event overnight. Patient is resting in bed comfortable. She still complaining of swelling/heaviness in legs. Nicardipine drip was restarted due to increase of blood pressure. Systolic pressure now ranging 160's-170's Denied syncope, vertigo, dizziness/ lightheadedness, weakness, fever/chills, cp, SOB, palpitations, abd pain, n/v/d , consitpation, incontinence, numbness/tingling. Objective - Vital Signs/Intake and Output Vital Signs (last 24 hours): Temp Pulse Resp BP Pulse Ox 99 F 72 24 162/90 H 100 09/24/16 04:00 09/24/16 05:30 09/24/16 04:00 09/24/16 05:30 09/24/16 04:00 Intake and Output: 09/24/16 09/24/16 06:59 18:59 Intake Total 1080 Output Total 2475 Balance -1395 - Medications Medications: Current Medications Amlodipine Besylate (Norvasc) 10 mg PO DAILY [facility] Last Admin: 09/23/16 09:19 Dose: 10 mg Aspirin (Ecotrin) 81 mg PO DAILY [facility] Last Admin: 09/23/16 09:17 Dose: 81 mg Carvedilol (Coreg) 12.5 mg PO BID [facility] Clonidine HCl (Catapres) 0.3 mg PO Q8 [facility] Last Admin: 09/24/16 05:30 Dose: 0.3 mg Docusate Sodium (Colace) 100 mg PO DAILY [facility] Last Admin: 09/23/16 09:16 Dose: 100 mg Doxazosin Mesylate (Cardura) 2 mg PO HS [facility] Last Admin: 09/23/16 21:40 Dose: 2 mg Hydralazine HCl (Apresoline) 50 mg PO Q6 [facility] Last Admin: 09/24/16 05:30 Dose: 50 mg Nicardipine HCl (Cardene Iv Premix) 200 mls @ 50 mls/hr IV .Q4H PRN; Protocol; 5 MG/HR PRN Reason: TITRATE PER MD ORDER Last Admin: 09/24/16 05:31 Dose: 25 mls/hr Magnesium Sulfate/Dextrose (Magnesium Sulfate 1 Gm/100 Ml D5w) 100 mls @ 100 mls/hr IVPB ONCE ONE Stop: 09/24/16 09:44 Isosorbide Mononitrate (Imdur) 120 mg PO DAILY [facility] Last Admin: 09/23/16 09:17 Dose: 120 mg Lorazepam (Ativan) 0.5 mg IVP Q4H PRN; Protocol PRN Reason: Anxiety Last Admin: 09/24/16 03:09 Dose: 0.5 mg Morphine Sulfate (Morphine) 2 mg IVP Q4H PRN PRN Reason: Pain, moderate (4-7) Last Admin: 09/21/16 09:51 Dose: 2 mg Multi-Ingredient Cream (Hydrocerin Cream) 1 ea TOP BID PRN PRN Reason: Dry nasal passages Ondansetron HCl (Zofran Inj) 4 mg IVP Q8H PRN PRN Reason: Nausea/Vomiting Last Admin: 09/19/16 03:52 Dose: 4 mg Pantoprazole Sodium (Protonix Ec Tab) 40 mg PO ACB [facility] Last Admin: 09/24/16 08:24 Dose: 40 mg Polyethylene Glycol (Miralax) 17 gm PO BID [facility] Last Admin: 09/23/16 17:46 Dose: 17 gm Senna/Docusate Sodium (Senokot S 50 Mg-8.6 Mg) 1 tab PO DAILY [facility] Last Admin: 09/23/16 09:16 Dose: 1 tab Sodium Chloride ([place] Nasal [place]) 0 ml NS BID [facility] Last Admin: 09/23/16 17:50 Dose: Not Given Spironolactone (Aldactone) 50 mg PO DAILY [facility] Torsemide (Demadex) 10 mg PO BID [facility] Last Admin: 09/23/16 17:45 Dose: 10 mg - Labs Labs: 09/24/16 06:00 09/24/16 06:00 PT 11.7 Seconds (9.9-11.8) 09/19/16 11:50 INR 1.08 (0.93-1.08) 09/19/16 11:50 APTT 26.4 Seconds (23.7-30.8) 09/13/16 10:30 - Constitutional Appears: No Acute Distress - Head Exam Head Exam: ATRAUMATIC, NORMOCEPHALIC - Eye Exam Eye Exam: EOMI, Normal appearance Pupil Exam: PERRL - ENT Exam ENT Exam: Mucous Membranes Moist - Neck Exam Neck Exam: Normal Inspection - Respiratory Exam Respiratory Exam: Clear to Ausculation Bilateral, NORMAL BREATHING PATTERN - Cardiovascular Exam Cardiovascular Exam: REGULAR RHYTHM, +S1, +S2 - GI/Abdominal Exam GI & Abdominal Exam: Soft, Normal Bowel Sounds. absent: Tenderness - Extremities Exam Extremities Exam: Normal Capillary Refill, Pedal Edema - Back Exam Back Exam: absent: CVA tenderness (L), CVA tenderness (R) - Neurological Exam Neurological Exam: Alert, Awake, CN II-XII Intact, Oriented x3 - Psychiatric Exam Psychiatric exam: Normal Affect, Normal Mood - Skin Skin Exam: Dry, Intact, Normal Color, Warm Assessment and Plan - Assessment and Plan (Free Text) Plan: 51 F with history of HTN, non compliant with medications at home, sickle cell trait, glaucoma, marijuana use, former alcohol abuser who presented with hypertensive emergency and found to have dehydration, hyponatremia, hypokalemia , elevated troponin, CHF due to systolic dysfunction (EF 35-40%), acute kidney injury, sepsis secondary to UTI and PRES syndrome. 1. Hypertensive Emergency ICU NORMA: no evidence of dissection or aortic root dilatation Endocrinology consult, Dr. Montes, help appreciated Nicardipine drip Re-Consult Neuro for re-evaluation of PRES, Dr. Rhonda Anne, help appreicated CT chest/abd/pelvis: unremarkable (see full report) ECHO: LV normal size, mild concentric LVH, mild-mod impaired systolic function EF35-40, mild-mod hypokinesis apical anterior wall, mild mitral regurg, trace aortic regurg, mild tricuspid regurg Renal US: Medical renal disease, 1.6 cm simple cyst on upper pole of r kidney ( see full report). MRI Brain: extensice signal abnormality in brainstem and basal ganglia bilaterally, particularly thalami, suspicious for edema. Extensive white matter signal abnormality in cerebral hemispheresbilaterally. Uncertain etiology, could be hypertensive/infectious/inflammatory encephalopathy extensivve demyelinating disease, toxic insult, or underlying metabolic abnormality (see full report). CT head: extensive hypodensity in the perventricular white matter, sheyla, and cerebellar white matter. Could represent vasogenic edema related to HTN or chronic microvascular disease (see full report). CT chest: mild cardiomegaly, very mild emphysematous changes in lung apices bilaterally (see full report). CT abd/pelvos: Right ovarian cyst (see full report). Carotid duplex: bilateral 20-39% stenoses of proximal ICA, antegrade flow in both vertebral arteries (see full report). ASA 81 mg PO daily Aldactone 25 mg PO daily Norvasc 10 mg PO daily Hydralazine 50 mg PO Q6H Clonidine 0.3 mg PO Q8H Isosorbide Mononitrate 120 mg PO daily Torsemide 10 mg PO BID Cardura 2 mg PO HS Nephro consult, Dr. Mcgarry, help appreciated Opthlamology consult, Dr. Bae, help appreciated Cardio consult, Dr. Carson, help appreciated Cardiac enzymes 0.20-->0.28-->1.98-->1.43-->2.43-->2.24-->0.54-->0.21 f/u daily labs Urine metanephrines elevated, suspicious for Pheochromocytoma Heart healthy diet 2. Chest Pain NORMA: no evidence of dissection or aortic root dilatation CT chest/abd/pelvis: unremarkable (see full report) ECHO: LV normal size, mild concentric LVH, mild-mod impaired systolic function EF35-40, mild-mod hypokinesis apical anterior wall, mild mitral regurg, trace aortic regurg, mild tricuspid regurg Carotid duplex: bilateral 20-39% stenoses of proximal ICA, antegrade flow in both vertebral arteries (see full report). ASA 81 mg PO daily Aldactone 25 mg PO daily Norvasc 10 mg PO daily Hydralazine 50 mg PO Q6H Clonidine 0.3 mg PO Q8H Isosorbide Mononitrate 120 mg PO daily Torsemide 10 mg PO BID Cardura 2 mg PO HS Nicardipine drip Nephro consult, Dr. Mcgarry, help appreciated Opthlamology consult, Dr. Bae, help appreciated Cardio consult, Dr. Carson, help appreciated Cardiac enzymes 0.20-->0.28-->1.98-->1.43-->2.43-->2.24-->0.54-->0.21 f/u daily labs BNP [id number] 3. ESTEFANI Bun/Cr: 57/3.9 Renal US: Medical renal disease, 1.6 cm simple cyst on upper pole of r kidney ( see full report). Nephrology consult, Dr. Rosen, help appreciated Urine metanephrines elevated, suspicious for Pheochromocytoma, needs confirmatory test 4. Dyspnea NORMA: no evidence of dissection or aortic root dilatation CT chest/abd/pelvis: unremarkable (see full report) ECHO: LV normal size, mild concentric LVH, mild-mod impaired systolic function EF35-40, mild-mod hypokinesis apical anterior wall, mild mitral regurg, trace aortic regurg, mild tricuspid regurg Carotid duplex: bilateral 20-39% stenoses of proximal ICA, antegrade flow in both vertebral arteries (see full report). ASA 81 mg PO daily Aldactone 25 mg PO daily Norvasc 10 mg PO daily Hydralazine 50 mg PO Q6H Clonidine 0.3 mg PO Q8H Isosorbide Mononitrate 120 mg PO daily Torsemide 10 mg PO BID Cardura 2 mg PO HS Nephro consult, Dr. Mcgarry, help appreciated Opthlamology consult, Dr. Bae, help appreciated Cardio consult, Dr. Carson, help appreciated Cardiac enzymes 0.20-->0.28-->1.98-->1.43-->2.43-->2.24-->0.54-->0.21 f/u daily labs BNP [id number] abd/pelvis revealed 3.5 x 5 cm R ovarian cyst [facility] SEWER consult, Dr. Meeks, help appreciated 6. Anemia Iron sucrose 200 mg IVPB daily transfused 2 units PRBC this admission 7. Glaucoma Tropicamide 1% 1 drop OU 8. Epitaxis Hydrocerin cream PRN [place] nasal spray PRN 9. Abnormal LFTs Downtrending GI consult, Dr. Moran, help appreciated Surgery consulted, Dr. Zamarripa, help appreciated Abdominal US: fatty infilatration of the liver, gallbladder sludge without cholelithiasis, nonspecific thickening of gallbladder wall [see full report] HIDA scan: Normal ABXR: constipation 10. UTI UA showed blood and elevated leukocyte esterase Urine culture grew E. Coli Rocephin 1 gm IVPB daily 11. Prophylactic measures Pepcid 20 mg PO daily Colace 100 mg PO daily Miralax 17 gm PO BID Ensure enlive daily <Rangasamy,Ajantha - Last Filed: 09/25/16 13:10> Objective - Vital Signs/Intake and Output Vital Signs (last 24 hours): Temp Pulse Resp BP Pulse Ox 98.7 F 69 21 162/115 H 100 09/25/16 00:00 09/25/16 12:01 09/25/16 12:01 09/25/16 12:01 09/25/16 12:01 - Medications Medications: Current Medications Acetaminophen (Tylenol 325mg Tab) 650 mg PO Q4H PRN PRN Reason: headache Last Admin: 09/25/16 11:19 Dose: 650 mg Amlodipine Besylate (Norvasc) 10 mg PO DAILY [facility] Last Admin: 09/25/16 11:21 Dose: 10 mg Aspirin (Ecotrin) 81 mg PO DAILY [facility] Last Admin: 09/25/16 11:22 Dose: 81 mg Carvedilol (Coreg) 25 mg PO BID [facility] Last Admin: 09/25/16 11:20 Dose: 25 mg Clonazepam (Klonopin Wafers) 0.125 mg PO QAM [facility] PRN Reason: Protocol Clonazepam (Klonopin Wafers) 0.5 mg PO HS [facility] PRN Reason: Protocol Clonidine HCl (Catapres) 0.3 mg PO Q8 [facility] Last Admin: 09/25/16 06:12 Dose: 0.3 mg Docusate Sodium (Colace) 100 mg PO DAILY [facility] Last Admin: 09/25/16 11:22 Dose: 100 mg Doxazosin Mesylate (Cardura) 2 mg PO HS [facility] Last Admin: 09/24/16 22:04 Dose: 2 mg Hydralazine HCl (Apresoline) 50 mg PO Q6 [facility] Last Admin: 09/25/16 05:03 Dose: 50 mg Nicardipine HCl (Cardene Iv Premix) 200 mls @ 50 mls/hr IV .Q4H PRN; Protocol; 5 MG/HR PRN Reason: TITRATE PER MD ORDER Last Titration: 09/24/16 14:49 Dose: 0 mg/hr Isosorbide Mononitrate (Imdur) 120 mg PO DAILY [facility] Last Admin: 09/25/16 11:21 Dose: 120 mg Multi-Ingredient Cream (Hydrocerin Cream) 1 ea TOP BID PRN PRN Reason: Dry nasal passages Ondansetron HCl (Zofran Inj) 4 mg IVP Q8H PRN PRN Reason: Nausea/Vomiting Last Admin: 09/19/16 03:52 Dose: 4 mg Pantoprazole Sodium (Protonix Ec Tab) 40 mg PO ACB [facility] Last Admin: 09/25/16 08:15 Dose: 40 mg Polyethylene Glycol (Miralax) 17 gm PO BID [facility] Last Admin: 09/25/16 11:19 Dose: 17 gm Senna/Docusate Sodium (Senokot S 50 Mg-8.6 Mg) 1 tab PO DAILY [facility] Last Admin: 09/24/16 09:22 Dose: 1 tab Sodium Chloride ([place] Nasal [place]) 0 ml NS BID [facility] Last Admin: 09/24/16 18:46 Dose: Not Given Spironolactone (Aldactone) 50 mg PO DAILY [facility] Last Admin: 09/25/16 11:20 Dose: 50 mg Torsemide (Demadex) 10 mg PO BID [facility] Last Admin: 09/25/16 11:21 Dose: 10 mg - Labs Labs: 09/25/16 06:28 09/25/16 06:28 PT 11.7 Seconds (9.9-11.8) 09/19/16 11:50 INR 1.08 (0.93-1.08) 09/19/16 11:50 APTT 26.4 Seconds (23.7-30.8) 09/13/16 10:30 Assessment and Plan - Assessment and Plan (Free Text) Assessment: Attending note; I have seen and examined the patient with the resident in CCU. patient's daughter by the bedside. Denies chest pain. tolerating diet. Patient is a 51 year old female with history of HTN, non compliant with medications at home, sickle cell trait, glaucoma, marijuana use, former alcohol abuser, OTC motrin use for headache on regular basis who presented with hypertensive emergency and found to have dehydration, hyponatremia, hypokalemia , elevated troponin, CHF due to systolic dysfunction (EF 35-40%), acute kidney injury, sepsis secondary to UTI and PRES syndrome. HTN; started back on cardene drip. po medications adjusted, BP is improving slowly. elevated metanephrine levels. 24-hour urine metanephrine is pending. continue Prazosin, hydralazine, clonidine, Imdur and Norvasc. started on Coreg. Aldactone dosage increased. pending urinary metanephrine levels. Endocrinology evaluation with Dr. montes appreciated. Patient needs follow-up with [facility] upon discharge. Slowly taper and DC Cardene drip as tolerated. Acute on chronic kidney disease. creatinine is improving slowly. Nephrology follow-up appreciated. Elevated LFTs; improving. GI evaluation appreciated.patient is tolerating diet. anemia; hemoglobin is stable at 9.8. No active bleeding. anxiety; psychiatric evaluation requested. the diagnosis, follow-up plan discussed with patient and patient' daughter in detail. out of bed to chair as tolerated. Upon discharge patient will follow up with Dr Evita Swann. Attending/Attestation - Attestation I have personally seen and examined this patient.: Yes I have fully participated in the care of the patient.: Yes I have reviewed all pertinent clinical information, including history, physical exam and plan: Yes
[2016-09-24] MEDS: Docusate-Senna 50 mg-8.6 mg Tab PO SCH (09:22)
[2016-09-24] MEDS: POLYETHYLENE GLYCOL 3350 17 GM/Dose PACKET PO SCH ×2 (09:45→17:06)
--- NOTE | 2016-09-24 10:25 | PN ---
DATE: 09/24/2016 SUBJECTIVE: The patient is lying in bed, comfortable. She denies any abdominal pain, nausea, vomiti ng, cough or shortness of breath. PHYSICAL EXAMINATION: VITAL SIGNS: Reveal temperature of 99, blood pressure 184/67, heart rate of 75. ABDOMEN: Obese, soft, nontender. LABORATORY DATA: Reveal BUN 57, creatinine 3.9. Potassium 3.4. AST, ALT are 26, 110 and 197. They are all trending downward. IMPRESSION: A 51-year-old female with accelerated hypertension, acute on chronic renal failure, elev ated liver enzymes which are trending downward, history of alcohol use. RECOMMENDATIONS: 1. Continue current treatment as well as workup for her accelerated hypertension. 2. Her liver enzymes are normalizing. She has been instructed to abstain from further alcohol abuse . Carlos Moran MD cc: [id number] TT: 09/24/2016 10:24:18 Confirmation # [id number] Dictation # [id number]
--- NOTE | 2016-09-24 11:16 | CP.CCUPN ---
<Melinda Ramirez - Last Filed: 09/24/16 11:13> CCU Subjective - Physician Review Events Since Last Encounter (Free Text): 09/24/16 11:13 Patient seen and examined bedside. Still on Cardene drip SBP 160-170s, going up to 190s. Patient denies CP, SOB, abd pain, back pain, n/v, fevers, chills. Critical Care Time Spent (in minutes): 40 CCU Objective - Vital Signs / Intake & Output Vital Signs (Last 4 hours): Vital Signs Temp Pulse Resp BP Pulse Ox 09/24/16 10:30 78 19 164/61 H 72 L 09/24/16 10:09 82 28 H 99 09/24/16 10:00 91 H 30 H 196/74 H 99 09/24/16 09:34 78 28 H 182/110 H 97 09/24/16 09:23 75 184/67 H 09/24/16 09:21 75 184/67 H 09/24/16 09:00 76 35 H 184/67 H 81 L 09/24/16 08:00 99.2 F 68 171/72 H 100 Intake and Output (Last 8hrs): Intake & Output 09/23/16 09/24/16 09/24/16 22:59 06:59 14:59 Intake Total 892 1080 Output Total 1250 2475 Balance -358 -1395 Weight 175 lb 12.8 oz Intake: IV 172 360 Left Upper arm 60 60 Cardene 112 300 Oral 720 720 Tube Feeding 0 TPN/PPN 0 Blood Product 0 Lipid 0 Albumin 0 Other 0 Output: Urine 1250 2475 Urethral (Cano) 950 Urine, Voided 300 2475 Stool 0 Urine/Stool Mix 0 Emesis 0 Oral Regurgitation 0 Other 0 Other: Voiding Method Bedside Commode Bedside Commode # Voids Urine, Voided 1 5 # Bowel Movements 0 0 - Physical Exam Head: Positive for: Atraumatic, Normocephalic Pupils: Positive for: PERRL (No vision left eye) Extroacular Muscles: Positive for: EOMI Conjunctiva: Positive for: Normal Mouth: Positive for: Moist Mucous Membranes Neck: Positive for: Normal Range of Motion Respiratory/Chest: Positive for: Clear to Auscultation, Good Air Exchange. Negative for: Respiratory Distress, Accessory Muscle Use Cardiovascular: Positive for: Regular Rate and Rhythm, Normal S1, S2. Negative for: Murmurs Abdomen: Positive for: Normal Bowel Sounds. Negative for: Tenderness, Distention, Peritoneal Signs, Rebound Back: Positive for: Normal Inspection Upper Extremity: Positive for: Normal Inspection. Negative for: Cyanosis, Edema Lower Extremity: Positive for: Normal Inspection, NORMAL PULSES. Negative for: Edema, CALF TENDERNESS Neurological: Positive for: GCS=15, CN II-XII Intact, Speech Normal Skin: Positive for: Warm, Dry, Normal Color. Negative for: Rashes Psychiatric: Positive for: Alert, Oriented x 3, Normal Insight, Normal Concentration - Medications Active Medications: Active Medications Generic Name Dose Route Start Last Admin Trade Name Freq PRN Reason Stop Dose Admin Amlodipine Besylate 10 mg 09/15/16 12:05 09/24/16 09:23 Norvasc PO 10 mg DAILY ANNA Administration Aspirin 81 mg 09/14/16 10:00 09/24/16 09:22 Ecotrin PO 81 mg DAILY ANNA Administration Carvedilol 12.5 mg 09/24/16 10:00 09/24/16 09:21 Coreg PO 12.5 mg BID ANNA Administration Clonidine HCl 0.3 mg 09/19/16 14:00 09/24/16 05:30 Catapres PO 0.3 mg Q8 ANNA Administration Docusate Sodium 100 mg 09/14/16 10:00 09/24/16 09:22 Colace PO 100 mg DAILY ANNA Administration Doxazosin Mesylate 4 mg 09/24/16 10:11 Cardura PO HS ANNA Hydralazine HCl 50 mg 09/22/16 18:00 09/24/16 05:30 Apresoline PO 50 mg Q6 ANNA Administration Nicardipine HCl 200 mls @ 50 mls/hr 09/23/16 13:23 09/24/16 10:05 Cardene Iv Premix IV 7.5 mg/hr .Q4H PRN Titration TITRATE PER MD ORDER Protocol 5 MG/HR Isosorbide Mononitrate 120 mg 09/22/16 12:39 09/24/16 09:23 Imdur PO 120 mg DAILY ANNA Administration Lorazepam 0.5 mg 09/16/16 08:36 09/24/16 03:09 Ativan IVP 0.5 mg Q4H PRN Administration Anxiety Protocol Morphine Sulfate 2 mg 09/14/16 07:39 09/21/16 09:51 Morphine IVP 2 mg Q4H PRN Administration Pain, moderate (4-7) Multi-Ingredient Cream 1 ea 09/17/16 11:01 Hydrocerin Cream TOP BID PRN Dry nasal passages Ondansetron HCl 4 mg 09/19/16 03:45 09/19/16 03:52 Zofran Inj IVP 4 mg Q8H PRN Administration Nausea/Vomiting Pantoprazole Sodium 40 mg 09/18/16 12:45 09/24/16 08:24 Protonix Ec Tab PO 40 mg ACB ANNA Administration Polyethylene Glycol 17 gm 09/20/16 10:08 09/24/16 09:45 Miralax PO 17 gm BID ANNA Administration Senna/Docusate Sodium 1 tab 09/20/16 10:15 09/24/16 09:22 Senokot S 50 Mg-8.6 Mg PO 1 tab DAILY ANNA Administration Sodium Chloride 0 ml 09/19/16 12:30 09/24/16 09:48 [place] Nasal [place] NS 1 spr BID ANNA Administration Spironolactone 50 mg 09/24/16 07:26 09/24/16 09:22 Aldactone PO 50 mg DAILY ANNA Administration Torsemide 10 mg 09/22/16 18:00 09/24/16 09:24 Demadex PO 10 mg BID ANNA Administration - Patient Studies Lab Studies: Lab Studies 09/24/16 09/20/16 Range/Units 06:00 12:20 WBC 6.0 (4.5-11.0) 10^3/ul RBC 3.26 L (3.5-6.1) 10^6/uL Hgb 9.8 L (12.0-16.0) gm/dL Hct 28.2 L (36.0-48.0) % MCV 86.5 (80.0-105.0) fL MCH 30.1 (25.0-35.0) pg MCHC 34.8 (31.0-37.0) g/dl RDW 16.2 H (11.5-14.5) % Plt Count 275 (120.0-450.0) 10^3/uL MPV 11.3 H (7.0-11.0) fl Neutrophils % (Manual) 73 H (50.0-70.0) % Band Neutrophils % 2 (0-2) % Lymphocytes % (Manual) 11 L (22.0-35.0) % Monocytes % (Manual) 12 H (1.0-6.0) % Eosinophils % (Manual) 2 (0.0-3.0) % Platelet Evaluation Normal (NORMAL) Hypochromasia Slight Anisocytosis (manual) Slight Sodium 134 (132-148) mmol/L Potassium 3.4 L (3.6-5.0) mmol/L Chloride 101 (98-107) mmol/L Carbon Dioxide 25 (21-33) mmol/L Anion Gap 11 (10-20) BUN 57 H (7-21) mg/dL Creatinine 3.9 H (0.5-1.4) mg/dL Est GFR ( Amer) 15 Est GFR (Non-Af Amer) 12 Random Glucose 101 (70-110) mg/dL Calcium 8.4 (8.4-10.5) mg/dL Phosphorus 4.5 (2.5-4.5) mg/dL Magnesium 1.8 (1.7-2.2) mg/dL Total Bilirubin 0.4 (0.2-1.3) mg/dL AST 26 (15-39) U/L ALT 110 H (7-56) U/L Alkaline Phosphatase 197 H (38-133) U/L Total Protein 6.3 (5.8-8.3) g/dL Albumin 2.9 L (3.0-4.8) g/dL Globulin 3.3 gm/dL Albumin/Globulin Ratio 0.9 L (1.1-1.8) TSH 3rd Generation 3.80 (0.46-4.68) mIU/mL Urine Total Volume 2000 (()) mL/24 h Ur 24 Hour Volume 2000 (()) mL/24 h Laboratory Results - last 24 hr 09/20/16 09/24/16 12:20 06:00 WBC 6.0 RBC 3.26 L Hgb 9.8 L Hct 28.2 L MCV 86.5 MCH 30.1 MCHC 34.8 RDW 16.2 H Plt Count 275 MPV 11.3 H Neutrophils % (Manual) 73 H Band Neutrophils % 2 Lymphocytes % (Manual) 11 L Monocytes % (Manual) 12 H Eosinophils % (Manual) 2 Platelet Evaluation Normal Hypochromasia Slight Anisocytosis (manual) Slight Sodium 134 Potassium 3.4 L Chloride 101 Carbon Dioxide 25 Anion Gap 11 BUN 57 H Creatinine 3.9 H Est GFR ( Amer) 15 Est GFR (Non-Af Amer) 12 Random Glucose 101 Calcium 8.4 Phosphorus 4.5 Magnesium 1.8 Total Bilirubin 0.4 AST 26 ALT 110 H Alkaline Phosphatase 197 H Total Protein 6.3 Albumin 2.9 L Globulin 3.3 Albumin/Globulin Ratio 0.9 L TSH 3rd Generation 3.80 Urine Total Volume 1999 Ur 24 Hour Volume 1999 Review of Systems - Constitutional Constitutional: absent: Fever, Chills - EENT Eyes: absent: Change in Vision, Diplopia - Cardiovascular Cardiovascular: absent: Chest Pain, Diaphoresis, Dyspnea - Gastrointestinal Gastrointestinal: absent: Abdominal Pain, Diarrhea, Nausea, Vomiting - Genitourinary Genitourinary: absent: Flank Pain - Musculoskeletal Musculoskeletal: absent: Back Pain, Neck Pain, Numbness - Neurological Neurological: absent: Focal Weakness Critical Care Progress Note - Ventilator Checklist PUD Prophalyxis: Yes DVT Prophylaxis: Yes - Nutrition Nutrition: Nutrition Category Date Time Status Heart Healthy Diet [DIET] Diets 09/22/16 Lunch Ordered Assessment/Plan - Assessment and Plan (Free Text) Assessment: 51 yo F w h/o uncontrolled HTN admitted to ICU with hypertensive emergency, PRES syndrome, cardiomyopathy, ESTEFANI, vitreous hemorrhage, left retinal detachment now back to ICU for elevated BP again poorly responsive to Hydralazine and clonidine, on Cardene drip. Plan: Neuro: AAOx3, NAD MRI head shows extensive brainstem, basal ganglia and thalamic edema, no acute infarct or hemorrhage. Will take 3-6 months to see changes on MRI given current PRES syndrome Neuro recs appreciated re: re-imaging EEG showed diffuse slowing c/w BL cerebral dysfunction, no epileptiform activity Will need optho followup after discharge for retinal detachment Maintain normothermia CV: Hypertensive emergency on Cardene drip. Goal SBP 120-130 Spironolactone 50mg PO Qday, Norvasc 10mg PO QDay, Clonidine 0.3mg PO Q8hr, Imdur 120mg PO Qday, Hydralazine 50mg PO Q6hr, Torsemide 10mg PO BID. Now also on Coreg 12.5 PO BID. Increase Cardura to 4mg PO QHS. Continue Cardene drip, titrate to SBP goal 150 NORMA was negative to dissection Continue ASA for stroke prevention No renal artery stenosis seen on Duplex. Medical renal Disease BL kidneys Pheochromocytoma suspected. Elevated metanephrines. Confirmatory workup pending. Avoiding unopposed beta blockade. Continue PRN hydration to prevent intravascular volume depletion common in pheo Maintain MAP >65 Pulm: No acute issues, able to protect airway. Comfortable and saturating in high 90s-100% on room air Maintain spo2>90 GI/: Pelvic US shows fundal leiomyoma, 4cm right ovarian cyst. Management as per primary team Continue Miralax, Senna, Colace GI ppx Hb currently stable, 9.8 HIDA negative Replaced electrolytes. Followup Am labs Renal: ESTEFANI. Vasculitis workup pending as per nephro. Continue hydration as per nephro Endo: No acute issues A1C 4.2 Maintain euglycemia 140-180 ID: No Leukocytosis, afebrile. Rocephin for E coli UTI as per ID 09/14 blood cultures show coagulase negative Staph aureus - Repeat blood cultures negative Heme: Iron deficiency anemia. Continue venofer - Date & Time Date: 09/24/16 Time: 11:16 <Rafi Myers - Last Filed: 09/24/16 15:36> CCU Objective - Vital Signs / Intake & Output Vital Signs (Last 4 hours): Vital Signs Temp Pulse Resp BP Pulse Ox 09/24/16 15:00 67 23 100 09/24/16 14:57 65 26 H 138/82 100 09/24/16 14:53 68 20 100 09/24/16 14:46 63 22 139/78 100 09/24/16 14:00 64 28 H 132/70 86 L 09/24/16 13:21 67 148/73 09/24/16 13:17 69 20 99 09/24/16 13:00 72 33 H 148/73 95 09/24/16 12:02 70 28 H 100 09/24/16 12:00 72 16 157/82 H 100 09/24/16 11:55 97.9 F Intake and Output (Last 8hrs): Intake & Output 09/24/16 09/24/16 09/24/16 06:59 14:59 22:59 Intake Total 1080 Output Total 2475 Balance -1395 Weight 175 lb 12.8 oz Intake: IV 360 Left Upper arm 60 Cardene 300 Oral 720 Tube Feeding 0 TPN/PPN 0 Blood Product 0 Lipid 0 Albumin 0 Other 0 Output: Urine 2475 Urine, Voided 2475 Stool 0 Urine/Stool Mix 0 Emesis 0 Oral Regurgitation 0 Other 0 Other: Voiding Method Bedside Commode # Voids Urine, Voided 5 # Bowel Movements 0 - Medications Active Medications: Active Medications Generic Name Dose Route Start Last Admin Trade Name Freq PRN Reason Stop Dose Admin Amlodipine Besylate 10 mg 09/15/16 12:05 09/24/16 09:23 Norvasc PO 10 mg DAILY ANNA Administration Aspirin 81 mg 09/14/16 10:00 09/24/16 09:22 Ecotrin PO 81 mg DAILY ANNA Administration Carvedilol 12.5 mg 09/24/16 10:00 09/24/16 09:21 Coreg PO 12.5 mg BID ANNA Administration Clonidine HCl 0.3 mg 09/19/16 14:00 09/24/16 13:21 Catapres PO 0.3 mg Q8 ANNA Administration Docusate Sodium 100 mg 09/14/16 10:00 09/24/16 09:22 Colace PO 100 mg DAILY ANNA Administration Doxazosin Mesylate 4 mg 09/24/16 10:11 Cardura PO HS ANNA Hydralazine HCl 50 mg 09/22/16 18:00 09/24/16 11:12 Apresoline PO 50 mg Q6 ANNA Administration Nicardipine HCl 200 mls @ 50 mls/hr 09/23/16 13:23 09/24/16 14:49 Cardene Iv Premix IV 0 mg/hr .Q4H PRN Titration TITRATE PER MD ORDER Protocol 5 MG/HR Isosorbide Mononitrate 120 mg 09/22/16 12:39 09/24/16 09:23 Imdur PO 120 mg DAILY ANNA Administration Lorazepam 0.5 mg 09/16/16 08:36 09/24/16 03:09 Ativan IVP 0.5 mg Q4H PRN Administration Anxiety Protocol Morphine Sulfate 2 mg 09/14/16 07:39 09/21/16 09:51 Morphine IVP 2 mg Q4H PRN Administration Pain, moderate (4-7) Multi-Ingredient Cream 1 ea 09/17/16 11:01 Hydrocerin Cream TOP BID PRN Dry nasal passages Ondansetron HCl 4 mg 09/19/16 03:45 09/19/16 03:52 Zofran Inj IVP 4 mg Q8H PRN Administration Nausea/Vomiting Pantoprazole Sodium 40 mg 09/18/16 12:45 09/24/16 08:24 Protonix Ec Tab PO 40 mg ACB ANNA Administration Polyethylene Glycol 17 gm 09/20/16 10:08 09/24/16 09:45 Miralax PO 17 gm BID ANNA Administration Senna/Docusate Sodium 1 tab 09/20/16 10:15 09/24/16 09:22 Senokot S 50 Mg-8.6 Mg PO 1 tab DAILY ANNA Administration Sodium Chloride 0 ml 09/19/16 12:30 09/24/16 09:48 [place] Nasal [place] NS 1 spr BID ANNA Administration Spironolactone 50 mg 09/24/16 07:26 09/24/16 09:22 Aldactone PO 50 mg DAILY ANNA Administration Torsemide 10 mg 09/22/16 18:00 09/24/16 09:24 Demadex PO 10 mg BID ANNA Administration - Patient Studies Lab Studies: Lab Studies 09/24/16 09/20/16 Range/Units 06:00 12:20 WBC 6.0 (4.5-11.0) 10^3/ul RBC 3.26 L (3.5-6.1) 10^6/uL Hgb 9.8 L (12.0-16.0) gm/dL Hct 28.2 L (36.0-48.0) % MCV 86.5 (80.0-105.0) fL MCH 30.1 (25.0-35.0) pg MCHC 34.8 (31.0-37.0) g/dl RDW 16.2 H (11.5-14.5) % Plt Count 275 (120.0-450.0) 10^3/uL MPV 11.3 H (7.0-11.0) fl Neutrophils % (Manual) 73 H (50.0-70.0) % Band Neutrophils % 2 (0-2) % Lymphocytes % (Manual) 11 L (22.0-35.0) % Monocytes % (Manual) 12 H (1.0-6.0) % Eosinophils % (Manual) 2 (0.0-3.0) % Platelet Evaluation Normal (NORMAL) Hypochromasia Slight Anisocytosis (manual) Slight Sodium 134 (132-148) mmol/L Potassium 3.4 L (3.6-5.0) mmol/L Chloride 101 (98-107) mmol/L Carbon Dioxide 25 (21-33) mmol/L Anion Gap 11 (10-20) BUN 57 H (7-21) mg/dL Creatinine 3.9 H (0.5-1.4) mg/dL Est GFR ( Amer) 15 Est GFR (Non-Af Amer) 12 Random Glucose 101 (70-110) mg/dL Calcium 8.4 (8.4-10.5) mg/dL Phosphorus 4.5 (2.5-4.5) mg/dL Magnesium 1.8 (1.7-2.2) mg/dL Total Bilirubin 0.4 (0.2-1.3) mg/dL AST 26 (15-39) U/L ALT 110 H (7-56) U/L Alkaline Phosphatase 197 H (38-133) U/L Total Protein 6.3 (5.8-8.3) g/dL Albumin 2.9 L (3.0-4.8) g/dL Globulin 3.3 gm/dL Albumin/Globulin Ratio 0.9 L (1.1-1.8) TSH 3rd Generation 3.80 (0.46-4.68) mIU/mL Cortisol AM Sample 18.5 (4.46-22.7) ug/dL Urine Total Volume 2000 (()) mL Ur 24 Hour Volume 2000 (()) mL/24 h Urine Metanephrine 452 H (58-203) mcg/24 h U Normetanephrine 783 H (88-649) mcg/24 h U Tot Metanephrine 24h 1235 H (182-739) mcg/24 h Laboratory Results - last 24 hr 09/20/16 09/24/16 12:20 06:00 WBC 6.0 RBC 3.26 L Hgb 9.8 L Hct 28.2 L MCV 86.5 MCH 30.1 MCHC 34.8 RDW 16.2 H Plt Count 275 MPV 11.3 H Neutrophils % (Manual) 73 H Band Neutrophils % 2 Lymphocytes % (Manual) 11 L Monocytes % (Manual) 12 H Eosinophils % (Manual) 2 Platelet Evaluation Normal Hypochromasia Slight Anisocytosis (manual) Slight Sodium 134 Potassium 3.4 L Chloride 101 Carbon Dioxide 25 Anion Gap 11 BUN 57 H Creatinine 3.9 H Est GFR ( Amer) 15 Est GFR (Non-Af Amer) 12 Random Glucose 101 Calcium 8.4 Phosphorus 4.5 Magnesium 1.8 Total Bilirubin 0.4 AST 26 ALT 110 H Alkaline Phosphatase 197 H Total Protein 6.3 Albumin 2.9 L Globulin 3.3 Albumin/Globulin Ratio 0.9 L TSH 3rd Generation 3.80 Cortisol AM Sample 18.5 Urine Total Volume 2000 Ur 24 Hour Volume 2000 Urine Metanephrine 452 H U Normetanephrine 783 H U Tot Metanephrine 24h 1235 H Critical Care Progress Note - Nutrition Nutrition: Nutrition Category Date Time Status Heart Healthy Diet [DIET] Diets 09/22/16 Lunch Ordered Addendum Addendum: 09/24/16 15:32 patient was seen, examined and discussed shoulder to shoulder with Dr. Ramirez. Her note reflects my exam, assessment and plan, except as below. Meds/Labs/ONE reviewed. 51 yo female with refractory hypertension, can not rile out pheochromacytoma ( work-up is pending and endo service follow up is appreciated) and hyperaldosteroinsim. Optimizing her anti-hypertensive Rx to wean her off cardene drip. She is on multiple anti-HTN meds. Comfortable ccm time 40 min
[2016-09-24 12:21] LABS: CORTISOL AM 18.5 ug/dL (4.46-22.7)
[2016-09-24 12:25] LABS: METANEPHRINE 452 mcg/24 h (58-203); NORMETANEPHRINE 783 mcg/24 h (88-649)
--- NOTE | 2016-09-24 13:27 | PN ---
DATE: 09/24/2016 In 129, room 5 in CCU This is a 51-year-old female presenting here with congestive heart failure and malignant range hypert ension and is now being followed closely for metabolic management. Her latest chemistry showed a BUN of 57, sodium 134, potassium 3.4, chloride 101, CO2 25, glucose 101 and creatinine 3.9. Her kidneys have improved remarkably as noted. Her serum cortisol level is 18. 5 mcg/dL with a TSH of 3.80, all of which are normal with a lipase of 134. The remaining hormonal profile, specifically the adrenal hormones, have been sent out and we will con firm later regarding the official report and since the patient is insistent on going home, milagros leal for discharge. We will follow her blood pressure course on the outpatient. We will follow. Imani Zambrano MD cc: [id number] TT: 09/24/2016 13:27:03 Confirmation # [id number] Dictation # [id number] en
--- NOTE | 2016-09-24 21:05 | CP.PCM.PN ---
Subjective - Date & Time of Evaluation Date of Evaluation: 09/24/16 Time of Evaluation: 08:10 - Subjective Subjective: Comfortable in bed, not in distress, no fevers, no dysuria, no SOB, no cough, no abdominal pain, no diarrhea. Objective - Vital Signs/Intake and Output Vital Signs (last 24 hours): Temp Pulse Resp BP Pulse Ox 98.5 F 66 23 159/91 H 97 09/24/16 20:00 09/24/16 20:00 09/24/16 20:00 09/24/16 20:00 09/24/16 20:00 Intake and Output: 09/24/16 09/25/16 18:59 06:59 Intake Total 1025 Output Total 900 Balance 125 - Medications Medications: Current Medications Amlodipine Besylate (Norvasc) 10 mg PO DAILY [facility] Last Admin: 09/24/16 09:23 Dose: 10 mg Aspirin (Ecotrin) 81 mg PO DAILY [facility] Last Admin: 09/24/16 09:22 Dose: 81 mg Carvedilol (Coreg) 12.5 mg PO BID [facility] Last Admin: 09/24/16 17:06 Dose: 12.5 mg Clonidine HCl (Catapres) 0.3 mg PO Q8 [facility] Last Admin: 09/24/16 13:21 Dose: 0.3 mg Docusate Sodium (Colace) 100 mg PO DAILY [facility] Last Admin: 09/24/16 09:22 Dose: 100 mg Doxazosin Mesylate (Cardura) 2 mg PO HS [facility] Hydralazine HCl (Apresoline) 50 mg PO Q6 [facility] Last Admin: 09/24/16 17:05 Dose: 50 mg Nicardipine HCl (Cardene Iv Premix) 200 mls @ 50 mls/hr IV .Q4H PRN; Protocol; 5 MG/HR PRN Reason: TITRATE PER MD ORDER Last Titration: 09/24/16 14:49 Dose: 0 mg/hr Isosorbide Mononitrate (Imdur) 120 mg PO DAILY [facility] Last Admin: 09/24/16 09:23 Dose: 120 mg Lorazepam (Ativan) 0.5 mg IVP Q4H PRN; Protocol PRN Reason: Anxiety Last Admin: 09/24/16 17:07 Dose: 0.5 mg Morphine Sulfate (Morphine) 2 mg IVP Q4H PRN PRN Reason: Pain, moderate (4-7) Last Admin: 09/21/16 09:51 Dose: 2 mg Multi-Ingredient Cream (Hydrocerin Cream) 1 ea TOP BID PRN PRN Reason: Dry nasal passages Ondansetron HCl (Zofran Inj) 4 mg IVP Q8H PRN PRN Reason: Nausea/Vomiting Last Admin: 09/19/16 03:52 Dose: 4 mg Pantoprazole Sodium (Protonix Ec Tab) 40 mg PO ACB [facility] Last Admin: 09/24/16 08:24 Dose: 40 mg Polyethylene Glycol (Miralax) 17 gm PO BID [facility] Last Admin: 09/24/16 17:06 Dose: Not Given Senna/Docusate Sodium (Senokot S 50 Mg-8.6 Mg) 1 tab PO DAILY [facility] Last Admin: 09/24/16 09:22 Dose: 1 tab Sodium Chloride (Fl[place] Nasal [place]) 0 ml NS BID [facility] Last Admin: 09/24/16 18:46 Dose: Not Given Spironolactone (Aldactone) 50 mg PO DAILY [facility] Last Admin: 09/24/16 09:22 Dose: 50 mg Torsemide (Demadex) 10 mg PO BID [facility] Last Admin: 09/24/16 17:06 Dose: 10 mg - Labs Labs: 09/24/16 06:00 09/24/16 06:00 PT 11.7 Seconds (9.9-11.8) 09/19/16 11:50 INR 1.08 (0.93-1.08) 09/19/16 11:50 APTT 26.4 Seconds (23.7-30.8) 09/13/16 10:30 - Constitutional Appears: Non-toxic, No Acute Distress - Head Exam Head Exam: NORMAL INSPECTION - ENT Exam ENT Exam: Mucous Membranes Moist - Neck Exam Neck Exam: absent: Lymphadenopathy, Meningismus - Respiratory Exam Respiratory Exam: Decreased Breath Sounds - Cardiovascular Exam Cardiovascular Exam: +S1, +S2 - GI/Abdominal Exam GI & Abdominal Exam: Soft. absent: Tenderness Assessment and Plan - Assessment and Plan (Free Text) Plan: Assessment S/P Systemic Inflammatory Response Syndrome probably secondary to hypertensive urgency / emergency with associated Posterior Reversible Encephalopathy Syndrome (PRES) and acute renal failure S/P sepsis from urinary tract infection with E. coli; clinically improved and S/ P treatment Coagulase negative Staph in one blood cx bottle, most likely contamination HTN, poorly-controlled history of glaucoma history of cataracts sickle cell trait S/P Caesarian section obesity with BMI 31 Plan continue to monitor off antibiotics and observe since she is at risk for hospital-acquired infections Will continue to monitor clinically
[2016-09-25] MEDS: Morphine 2 mg/ml ISec IVP PRN (06:12)
[2016-09-25 06:28] LABS: ADD MANUAL DIFF? NO
[2016-09-25 06:34] LABS: BASO # 0.03 K/mm3 (0.0-2.0); BASO % 0.5 % (0.0-3.0); EOS # 0.2 (0.0-0.7); EOS % 2.9 % (1.5-5.0); GRAN # 3.82 (1.4-6.5); GRAN % 65.3 % (50.0-68.0); HEMATOCRIT 28.9 % (36.0-48.0); LYMPH # 1.1 (1.2-3.4); MEAN CORPUSCULAR HEMOGLOBIN 30.1 pg (25.0-35.0); MEAN CORPUSCULAR HGB CONC 34.6 g/dl (31.0-37.0); MEAN PLATELET VOLUME 10.8 fl (7.0-11.0); MONO # 0.7 (0.1-0.6); MONO % 12.3 % (1.0-6.0); PLATELET COUNT 266 10^3/uL (120.0-450.0); WHITE BLOOD COUNT 5.9 10^3/ul (4.5-11.0)
[2016-09-25 06:53] LABS: ALB/GLOB RATIO 0.9 (1.1-1.8); BILIRUBIN,TOTAL 0.3 mg/dL (0.2-1.3); CALCIUM 8.7 mg/dL (8.4-10.5); MAGNESIUM 1.9 mg/dL (1.7-2.2); PHOSPHOROUS 4.5 mg/dL (2.5-4.5); POTASSIUM 3.8 mmol/L (3.6-5.0); TOTAL PROTEIN 6.4 g/dL (5.8-8.3)
[2016-09-25] MEDS: Pantoprazole 40 mg EC Tab PO SCH (08:15)
[2016-09-25] MEDS: Docusate-Senna 50 mg-8.6 mg Tab PO SCH (10:40)
--- NOTE | 2016-09-25 10:44 | CP.PCM.PN ---
Subjective - Date & Time of Evaluation Date of Evaluation: 09/24/16 Time of Evaluation: 10:45 - Subjective Subjective: Patient reports another "spell" overnight with difficulty breathing and lower sternal/epigastric pain, resolved at time of initial exam this morning; Objective - Vital Signs/Intake and Output Vital Signs (last 24 hours): Temp Pulse Resp BP Pulse Ox 98.7 F 65 28 H 165/83 H 100 09/25/16 00:00 09/25/16 06:12 09/25/16 01:00 09/25/16 06:12 09/25/16 02:00 - Medications Medications: Current Medications Amlodipine Besylate (Norvasc) 10 mg PO DAILY [facility] Last Admin: 09/24/16 09:23 Dose: 10 mg Aspirin (Ecotrin) 81 mg PO DAILY [facility] Last Admin: 09/24/16 09:22 Dose: 81 mg Carvedilol (Coreg) 25 mg PO BID [facility] Clonidine HCl (Catapres) 0.3 mg PO Q8 [facility] Last Admin: 09/25/16 06:12 Dose: 0.3 mg Docusate Sodium (Colace) 100 mg PO DAILY [facility] Last Admin: 09/24/16 09:22 Dose: 100 mg Doxazosin Mesylate (Cardura) 2 mg PO HS [facility] Last Admin: 09/24/16 22:04 Dose: 2 mg Hydralazine HCl (Apresoline) 50 mg PO Q6 [facility] Last Admin: 09/25/16 05:03 Dose: 50 mg Nicardipine HCl (Cardene Iv Premix) 200 mls @ 50 mls/hr IV .Q4H PRN; Protocol; 5 MG/HR PRN Reason: TITRATE PER MD ORDER Last Titration: 09/24/16 14:49 Dose: 0 mg/hr Isosorbide Mononitrate (Imdur) 120 mg PO DAILY [facility] Last Admin: 09/24/16 09:23 Dose: 120 mg Lorazepam (Ativan) 0.5 mg IVP Q4H PRN; Protocol PRN Reason: Anxiety Last Admin: 09/25/16 01:20 Dose: 0.5 mg Multi-Ingredient Cream (Hydrocerin Cream) 1 ea TOP BID PRN PRN Reason: Dry nasal passages Ondansetron HCl (Zofran Inj) 4 mg IVP Q8H PRN PRN Reason: Nausea/Vomiting Last Admin: 09/19/16 03:52 Dose: 4 mg Pantoprazole Sodium (Protonix Ec Tab) 40 mg PO ACB [facility] Last Admin: 09/25/16 08:15 Dose: 40 mg Polyethylene Glycol (Miralax) 17 gm PO BID [facility] Last Admin: 09/24/16 17:06 Dose: Not Given Senna/Docusate Sodium (Senokot S 50 Mg-8.6 Mg) 1 tab PO DAILY [facility] Last Admin: 09/24/16 09:22 Dose: 1 tab Sodium Chloride ([place] Nasal [place]) 0 ml NS BID [facility] Last Admin: 09/24/16 18:46 Dose: Not Given Spironolactone (Aldactone) 50 mg PO DAILY [facility] Last Admin: 09/24/16 09:22 Dose: 50 mg Torsemide (Demadex) 10 mg PO BID [facility] Last Admin: 09/24/16 17:06 Dose: 10 mg - Labs Labs: 09/25/16 06:28 09/25/16 06:28 PT 11.7 Seconds (9.9-11.8) 09/19/16 11:50 INR 1.08 (0.93-1.08) 09/19/16 11:50 APTT 26.4 Seconds (23.7-30.8) 09/13/16 10:30 - Constitutional Appears: Well, No Acute Distress - Head Exam Head Exam: NORMAL INSPECTION - Eye Exam Eye Exam: Normal appearance. absent: Scleral icterus - ENT Exam ENT Exam: Mucous Membranes Moist - Neck Exam Neck Exam: Normal Inspection - Respiratory Exam Respiratory Exam: Clear to Ausculation Bilateral, NORMAL BREATHING PATTERN - Cardiovascular Exam Cardiovascular Exam: REGULAR RHYTHM, JVD, +S1, +S2. absent: Gallop - GI/Abdominal Exam GI & Abdominal Exam: Soft. absent: Distended, Tenderness - Extremities Exam Additional comments: Moderate bilateral lower leg edema; - Neurological Exam Neurological Exam: Alert, Awake - Skin Skin Exam: Warm. absent: Cyanosis Assessment and Plan (1) Acute kidney injury Assessment & Plan: Acute renal failure secondary to malignant htn and subsequent need to control BP emergently in the setting of PRES syndrome; renal function relatively stable but with underlying CKD as evidenced by thin cortices on imaging; stable electrolyte status, volume excess on exam; -continue diuretics -maintain SBP in 150-160 range Status: Acute (2) PRES (posterior reversible encephalopathy syndrome) Assessment & Plan: Per MRI findings; need to maintain diastolic BP < 110; Status: Acute (3) Hypertensive emergency Assessment & Plan: Off nicardipine drip this afternoon with SBP in 140's; coreg added today; on doxazosin 2 mg qhs, increased from 1 mg the night before, will keep same dose tonight to avoid dropping BP too quickly; continue with rest of anti-htn meds; Status: Acute (4) Malignant hypertension Assessment & Plan: Suspecting pheochromocytoma with patient reporting suggestive spells; now with both plasma and 24 hr urine showing elevated metanephrines to a level that would be consistent with this diagnosis; needs imaging study to look for source of production; will discuss with endocrine regarding MRI abdomen, IZZY doesn't appear necessary; CT w/ IV contrast would precipitate the need for dialysis; Status: Acute (5) CHF (congestive heart failure) Assessment & Plan: Systolic dysfunction on echo; with signs/symptoms of CHF exacerbation; continue diuretics, may need higher doses with low GFR; Status: Acute
[2016-09-25] MEDS: POLYETHYLENE GLYCOL 3350 17 GM/Dose PACKET PO SCH ×2 (11:19→18:21)
--- NOTE | 2016-09-25 11:21 | CP.PCM.PN ---
<EspinozaAlfredoTamir - Last Filed: 09/25/16 19:09> Subjective - Date & Time of Evaluation Date of Evaluation: 09/25/16 Time of Evaluation: 07:10 - Subjective Subjective: Patient seen and examined at bedside. No acute event overnight. Patient is resting in bed comfortable. She still complaining of swelling/heaviness in legs but swelling has gone down since admission. Nicardipine drip was stopped. BP is 169/101. Overall she is feeling better and denies fever/chills, cp, SOB, palpitations, abd pain, n/v/d, constipation, incontinence, numbness/tingling. Objective - Vital Signs/Intake and Output Vital Signs (last 24 hours): Temp Pulse Resp BP Pulse Ox 98.7 F 65 28 H 165/83 H 100 09/25/16 00:00 09/25/16 06:12 09/25/16 01:00 09/25/16 06:12 09/25/16 02:00 - Medications Medications: Current Medications Acetaminophen (Tylenol 325mg Tab) 650 mg PO Q4H PRN PRN Reason: headache Amlodipine Besylate (Norvasc) 10 mg PO DAILY [facility] Last Admin: 09/24/16 09:23 Dose: 10 mg Aspirin (Ecotrin) 81 mg PO DAILY [facility] Last Admin: 09/24/16 09:22 Dose: 81 mg Carvedilol (Coreg) 25 mg PO BID [facility] Clonidine HCl (Catapres) 0.3 mg PO Q8 [facility] Last Admin: 09/25/16 06:12 Dose: 0.3 mg Docusate Sodium (Colace) 100 mg PO DAILY [facility] Last Admin: 09/24/16 09:22 Dose: 100 mg Doxazosin Mesylate (Cardura) 2 mg PO HS [facility] Last Admin: 09/24/16 22:04 Dose: 2 mg Hydralazine HCl (Apresoline) 50 mg PO Q6 [facility] Last Admin: 09/25/16 05:03 Dose: 50 mg Nicardipine HCl (Cardene Iv Premix) 200 mls @ 50 mls/hr IV .Q4H PRN; Protocol; 5 MG/HR PRN Reason: TITRATE PER MD ORDER Last Titration: 09/24/16 14:49 Dose: 0 mg/hr Isosorbide Mononitrate (Imdur) 120 mg PO DAILY [facility] Last Admin: 09/24/16 09:23 Dose: 120 mg Lorazepam (Ativan) 0.5 mg IVP Q4H PRN; Protocol PRN Reason: Anxiety Last Admin: 09/25/16 01:20 Dose: 0.5 mg Multi-Ingredient Cream (Hydrocerin Cream) 1 ea TOP BID PRN PRN Reason: Dry nasal passages Ondansetron HCl (Zofran Inj) 4 mg IVP Q8H PRN PRN Reason: Nausea/Vomiting Last Admin: 09/19/16 03:52 Dose: 4 mg Pantoprazole Sodium (Protonix Ec Tab) 40 mg PO ACB [facility] Last Admin: 09/25/16 08:15 Dose: 40 mg Polyethylene Glycol (Miralax) 17 gm PO BID [facility] Last Admin: 09/24/16 17:06 Dose: Not Given Senna/Docusate Sodium (Senokot S 50 Mg-8.6 Mg) 1 tab PO DAILY [facility] Last Admin: 09/24/16 09:22 Dose: 1 tab Sodium Chloride ([place] Nasal [place]) 0 ml NS BID [facility] Last Admin: 09/24/16 18:46 Dose: Not Given Spironolactone (Aldactone) 50 mg PO DAILY [facility] Last Admin: 09/24/16 09:22 Dose: 50 mg Torsemide (Demadex) 10 mg PO BID [facility] Last Admin: 09/24/16 17:06 Dose: 10 mg - Labs Labs: 09/25/16 06:28 09/25/16 06:28 PT 11.7 Seconds (9.9-11.8) 09/19/16 11:50 INR 1.08 (0.93-1.08) 09/19/16 11:50 APTT 26.4 Seconds (23.7-30.8) 09/13/16 10:30 - Constitutional Appears: Non-toxic, No Acute Distress - Head Exam Head Exam: ATRAUMATIC, NORMOCEPHALIC - Eye Exam Eye Exam: EOMI - ENT Exam ENT Exam: Mucous Membranes Moist - Neck Exam Neck Exam: Full ROM - Respiratory Exam Respiratory Exam: Clear to Ausculation Bilateral, NORMAL BREATHING PATTERN - Cardiovascular Exam Cardiovascular Exam: REGULAR RHYTHM, +S1, +S2. absent: JVD - Extremities Exam Extremities Exam: Full ROM, Joint Swelling, Pedal Edema - Back Exam Back Exam: NORMAL INSPECTION - Neurological Exam Neurological Exam: Alert, Awake, Oriented x3 - Psychiatric Exam Psychiatric exam: Normal Affect, Normal Mood - Skin Skin Exam: Dry, Intact, Normal Color, Warm Assessment and Plan - Assessment and Plan (Free Text) Assessment: 51 F with history of HTN, non compliant with medications at home, sickle cell trait, glaucoma, marijuana use, former alcohol abuser who presented with hypertensive emergency and found to have dehydration, hyponatremia, hypokalemia , elevated troponin, CHF due to systolic dysfunction (EF 35-40%), acute kidney injury, sepsis secondary to UTI and PRES syndrome. Plan: 1. Hypertensive Emergency in ICU [place]: no evidence of dissection or aortic root dilatation Endocrinology consult, Dr. Montes, help appreciated Re-Consult Neuro for re-evaluation of PRES, Dr. Rhonda Anne, help appreciated CT chest/abd/pelvis: unremarkable (see full report) ECHO: LV normal size, mild concentric LVH, mild-mod impaired systolic function EF35-40, mild-mod hypokinesis apical anterior wall, mild mitral regurg, trace aortic regurg, mild tricuspid regurg Renal US: Medical renal disease, 1.6 cm simple cyst on upper pole of r kidney ( see full report). MRI Brain: extensive signal abnormality in brainstem and basal ganglia bilaterally, particularly thalami, suspicious for edema. Extensive white matter signal abnormality in cerebral hemispheres bilaterally. Uncertain etiology, could be hypertensive/infectious/inflammatory encephalopathy extensive demyelinating disease, toxic insult, or underlying metabolic abnormality (see full report). CT head: extensive hypodensity in the periventricular white matter, sheyla, and cerebellar white matter. Could represent vasogenic edema related to HTN or chronic microvascular disease (see full report). CT chest: mild cardiomegaly, very mild emphysematous changes in lung apices bilaterally (see full report). CT abd/pelvos: Right ovarian cyst (see full report). Carotid duplex: bilateral 20-39% stenoses of proximal ICA, anterograde flow in both vertebral arteries (see full report). Urine metanephrines elevated, suspicious for Pheochromocytoma 2. Chest Pain [place]: no evidence of dissection or aortic root dilatation CT chest/abd/pelvis: unremarkable (see full report) ECHO: LV normal size, mild concentric LVH, mild-mod impaired systolic function EF35-40, mild-mod hypokinesis apical anterior wall, mild mitral regurg, trace aortic regurg, mild tricuspid regurg Carotid duplex: bilateral 20-39% stenoses of proximal ICA, anterograde flow in both vertebral arteries (see full report). ASA 81 mg PO daily Aldactone 25 mg PO daily Norvasc 10 mg PO daily Hydralazine 50 mg PO Q6H Clonidine 0.3 mg PO Q8H Isosorbide Mononitrate 120 mg PO daily Torsemide 10 mg PO BID Cardura 2 mg PO HS Nicardipine drip stopped 09/24 Nephro consult, Dr. Mcgarry, help appreciated Ophthlamology consult, Dr. Bae, help appreciated Cardio consult, Dr. Carson, help appreciated Cardiac enzymes 09/13-0.20-->0.28-->1.98-->1.43-->2.43-->2.24-->0.54-->09/21-0.21 f/u daily labs BNP 20934 3. ESTEFANI Bun/Cr: 57/3.9 Renal US: Medical renal disease, 1.6 cm simple cyst on upper pole of r kidney ( see full report). Nephrology consult, Dr. Rosen, help appreciated -maintain sys 150-160 and bolanos <110 -off nicardipine drip, cont other anti-htn meds Urine metanephrines elevated, suspicious for Pheochromocytoma, needs confirmatory test, CT w/IV could precipitate renal failure 4. Dyspnea [place]: no evidence of dissection or aortic root dilatation CT chest/abd/pelvis: unremarkable (see full report) ECHO: LV normal size, mild concentric LVH, mild-mod impaired systolic function EF35-40, mild-mod hypokinesis apical anterior wall, mild mitral regurg, trace aortic regurg, mild tricuspid regurg Carotid duplex: bilateral 20-39% stenoses of proximal ICA, anterograde flow in both vertebral arteries (see full report). ASA 81 mg PO daily Aldactone 25 mg PO daily Norvasc 10 mg PO daily Hydralazine 50 mg PO Q6H Clonidine 0.3 mg PO Q8H Isosorbide Mononitrate 120 mg PO daily Torsemide 10 mg PO BID Cardura 2 mg PO HS Nephro consult, Dr. Mcgarry, help appreciated Opthlamology consult, Dr. Bae, help appreciated Cardio consult, Dr. Carson, help appreciated Cardiac enzymes 09/13-0.20-->0.28-->1.98-->1.43-->2.43-->2.24-->0.54-->4/4-0.21 BNP [address] abd/pelvis revealed 3.5 x 5 cm R ovarian cyst [employer] consult, Dr. Meeks, help appreciated 6. Anemia Iron sucrose 200 mg IVPB daily transfused 2 units PRBC this admission 7. Glaucoma Tropicamide 1% 1 drop OU 8. Epitaxis - resolved 9. Abnormal LFTs Downtrending 09/25 - AST 28, ALT 86 GI consult, Dr. Moran, help appreciated Surgery consulted, Dr. Zamarripa, help appreciated Abdominal US: fatty infiltration of the liver, gallbladder sludge without cholelithiasis, nonspecific thickening of gallbladder wall [see full report] HIDA scan: Normal ABXR: constipation 10. UTI - resolved 11. Prophylactic measures Pepcid 20 mg PO daily Colace 100 mg PO daily Miralax 17 gm PO BID Ensure enlive daily Heart Healthy Diet <[place] Linda - Last Filed: 09/26/16 10:48> Objective - Vital Signs/Intake and Output Vital Signs (last 24 hours): Temp Pulse Resp BP Pulse Ox 97.8 F 63 17 165/96 H 100 09/26/16 08:00 09/26/16 10:00 09/26/16 10:00 09/26/16 10:00 09/26/16 10:00 Intake and Output: 09/26/16 09/26/16 06:59 18:59 Intake Total 1200 Output Total 901 Balance 299 - Medications Medications: Current Medications Acetaminophen (Tylenol 325mg Tab) 650 mg PO Q4H PRN PRN Reason: headache Last Admin: 09/26/16 00:20 Dose: 650 mg Amlodipine Besylate (Norvasc) 10 mg PO DAILY [facility] Last Admin: 09/26/16 09:03 Dose: 10 mg Aspirin (Ecotrin) 81 mg PO DAILY [facility] Last Admin: 09/26/16 09:02 Dose: 81 mg Carvedilol (Coreg) 25 mg PO BID [facility] Last Admin: 09/26/16 09:01 Dose: 25 mg Clonazepam (Klonopin Wafers) 0.125 mg PO QAM [facility] PRN Reason: Protocol Last Admin: 09/26/16 09:02 Dose: 0.125 mg Clonazepam (Klonopin) 0.5 mg PO HS [facility] PRN Reason: Protocol Last Admin: 09/25/16 21:39 Dose: 0.5 mg Clonidine HCl (Catapres) 0.3 mg PO Q8 [facility] Last Admin: 09/26/16 05:12 Dose: 0.3 mg Docusate Sodium (Colace) 100 mg PO DAILY [facility] Last Admin: 09/26/16 09:03 Dose: 100 mg Doxazosin Mesylate (Cardura) 4 mg PO HS [facility] Hydralazine HCl (Apresoline) 50 mg PO Q6 [facility] Last Admin: 09/26/16 05:13 Dose: 50 mg Nicardipine HCl (Cardene Iv Premix) 200 mls @ 50 mls/hr IV .Q4H PRN; Protocol; 5 MG/HR PRN Reason: TITRATE PER MD ORDER Last Titration: 09/24/16 14:49 Dose: 0 mg/hr Isosorbide Mononitrate (Imdur) 120 mg PO DAILY [facility] Last Admin: 09/26/16 09:03 Dose: 120 mg Multi-Ingredient Cream (Hydrocerin Cream) 1 ea TOP BID PRN PRN Reason: Dry nasal passages Ondansetron HCl (Zofran Inj) 4 mg IVP Q8H PRN PRN Reason: Nausea/Vomiting Last Admin: 09/19/16 03:52 Dose: 4 mg Pantoprazole Sodium (Protonix Ec Tab) 40 mg PO ACB [facility] Last Admin: 09/26/16 08:32 Dose: 40 mg Polyethylene Glycol (Miralax) 17 gm PO BID [facility] Last Admin: 09/26/16 09:01 Dose: 17 gm Senna/Docusate Sodium (Senokot S 50 Mg-8.6 Mg) 1 tab PO DAILY [facility] Last Admin: 09/26/16 09:01 Dose: 1 tab Sodium Chloride ([place] Nasal [place]) 0 ml NS BID [facility] Last Admin: 09/26/16 09:04 Dose: 1 spr Spironolactone (Aldactone) 50 mg PO DAILY [facility] Last Admin: 09/26/16 09:04 Dose: 50 mg Torsemide (Demadex) 10 mg PO BID [facility] Last Admin: 09/26/16 09:04 Dose: 10 mg - Labs Labs: 09/26/16 05:15 09/26/16 05:15 PT 11.7 Seconds (9.9-11.8) 09/19/16 11:50 INR 1.08 (0.93-1.08) 09/19/16 11:50 APTT 26.4 Seconds (23.7-30.8) 09/13/16 10:30 Assessment and Plan - Assessment and Plan (Free Text) Assessment: Attending note; I have seen and examined the patient with the resident in CCU. patient's daughter by the bedside. Episodes of hypertension and palpitation. Otherwise clinically improved significantly. HTN; Nicardipine drip.stopped. elevated metanephrine levels. 24-hour urine metanephrine is elevated. MRI without contrast ordered to rule out adrenal mass. continue Prazosin, hydralazine, clonidine, Imdur, Aldactone, Coreg and Norvasc. Dosage is increased to control blood pressure. Endocrinology evaluation with Dr. montes appreciated. Patient needs follow-up with [facility] upon discharge. Acute on chronic kidney disease. creatinine is improving slowly. Nephrology follow-up appreciated. Elevated LFTs; improving. GI evaluation appreciated.patient is tolerating diet. anemia; hemoglobin is stable at 9.8. No active bleeding. anxiety; psychiatric evaluation appreciated. Continue Klonopin. the diagnosis, follow-up plan discussed with patient and patient' daughter in detail. out of bed to chair as tolerated. Transfer to telemetry floor. Upon discharge patient will follow up with Dr.Mary Swann. Attending/Attestation - Attestation I have personally seen and examined this patient.: Yes I have fully participated in the care of the patient.: Yes I have reviewed all pertinent clinical information, including history, physical exam and plan: Yes
--- NOTE | 2016-09-25 11:31 | CP.PCM.PN ---
Subjective - Date & Time of Evaluation Date of Evaluation: 09/25/16 Time of Evaluation: 10:30 - Subjective Subjective: Comfortable in bed, not in distress, no fevers overnight, no nausea, no diarrhea. Objective - Vital Signs/Intake and Output Vital Signs (last 24 hours): Temp Pulse Resp BP Pulse Ox 98.7 F 65 28 H 165/83 H 100 09/25/16 00:00 09/25/16 06:12 09/25/16 01:00 09/25/16 06:12 09/25/16 02:00 - Medications Medications: Current Medications Acetaminophen (Tylenol 325mg Tab) 650 mg PO Q4H PRN PRN Reason: headache Amlodipine Besylate (Norvasc) 10 mg PO DAILY [facility] Last Admin: 09/24/16 09:23 Dose: 10 mg Aspirin (Ecotrin) 81 mg PO DAILY [facility] Last Admin: 09/24/16 09:22 Dose: 81 mg Carvedilol (Coreg) 25 mg PO BID [facility] Clonidine HCl (Catapres) 0.3 mg PO Q8 [facility] Last Admin: 09/25/16 06:12 Dose: 0.3 mg Docusate Sodium (Colace) 100 mg PO DAILY [facility] Last Admin: 09/24/16 09:22 Dose: 100 mg Doxazosin Mesylate (Cardura) 2 mg PO HS [facility] Last Admin: 09/24/16 22:04 Dose: 2 mg Hydralazine HCl (Apresoline) 50 mg PO Q6 [facility] Last Admin: 09/25/16 05:03 Dose: 50 mg Nicardipine HCl (Cardene Iv Premix) 200 mls @ 50 mls/hr IV .Q4H PRN; Protocol; 5 MG/HR PRN Reason: TITRATE PER MD ORDER Last Titration: 09/24/16 14:49 Dose: 0 mg/hr Isosorbide Mononitrate (Imdur) 120 mg PO DAILY [facility] Last Admin: 09/24/16 09:23 Dose: 120 mg Lorazepam (Ativan) 0.5 mg IVP Q4H PRN; Protocol PRN Reason: Anxiety Last Admin: 09/25/16 01:20 Dose: 0.5 mg Multi-Ingredient Cream (Hydrocerin Cream) 1 ea TOP BID PRN PRN Reason: Dry nasal passages Ondansetron HCl (Zofran Inj) 4 mg IVP Q8H PRN PRN Reason: Nausea/Vomiting Last Admin: 09/19/16 03:52 Dose: 4 mg Pantoprazole Sodium (Protonix Ec Tab) 40 mg PO ACB [facility] Last Admin: 09/25/16 08:15 Dose: 40 mg Polyethylene Glycol (Miralax) 17 gm PO BID [facility] Last Admin: 09/24/16 17:06 Dose: Not Given Senna/Docusate Sodium (Senokot S 50 Mg-8.6 Mg) 1 tab PO DAILY [facility] Last Admin: 09/24/16 09:22 Dose: 1 tab Sodium Chloride ([place] Nasal [place]) 0 ml NS BID [facility] Last Admin: 09/24/16 18:46 Dose: Not Given Spironolactone (Aldactone) 50 mg PO DAILY [facility] Last Admin: 09/24/16 09:22 Dose: 50 mg Torsemide (Demadex) 10 mg PO BID [facility] Last Admin: 09/24/16 17:06 Dose: 10 mg - Labs Labs: 09/25/16 06:28 09/25/16 06:28 PT 11.7 Seconds (9.9-11.8) 09/19/16 11:50 INR 1.08 (0.93-1.08) 09/19/16 11:50 APTT 26.4 Seconds (23.7-30.8) 09/13/16 10:30 - Constitutional Appears: Non-toxic, No Acute Distress - Head Exam Head Exam: NORMAL INSPECTION - Neck Exam Neck Exam: absent: Lymphadenopathy, Meningismus - Respiratory Exam Respiratory Exam: Decreased Breath Sounds - Cardiovascular Exam Cardiovascular Exam: +S1, +S2 - GI/Abdominal Exam GI & Abdominal Exam: Soft. absent: Tenderness Assessment and Plan - Assessment and Plan (Free Text) Plan: Assessment S/P Systemic Inflammatory Response Syndrome probably secondary to hypertensive urgency / emergency with associated Posterior Reversible Encephalopathy Syndrome (PRES) and acute renal failure S/P sepsis from urinary tract infection with E. coli; clinically improved and S/ P treatment Coagulase negative Staph in one blood cx bottle, most likely contamination HTN, poorly-controlled history of glaucoma history of cataracts sickle cell trait S/P Caesarian section obesity with BMI 31 Plan continue to monitor off antibiotics and observe since she is at risk for nosocomial infections Will continue to monitor clinically
--- NOTE | 2016-09-25 12:55 | PN ---
DATE: 09/25/2016 LOCATION: CCU 126, room 5 SUBJECTIVE: This is a 51-year-old female, admitted with malignant range hypertension and currently u ndergoing cardiac workup and management, and is also being followed closely for metabolic management because of the possibility of endocrine-related hypertension, i.e., pheochromocytoma. Her latest chemistries showed a BUN of 57, sodium 134, potassium 3.8, chloride 101, CO2 25, glucose 9 7 and creatinine 4.0. The sodium cortisol level is 18.5 mcg/dL, with a TSH of 3.80, also which are w ithin normal range. 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 Plasma f ree metanephrines have been sent out to a reference lab and this will be a more specific marker for underlying catecholamine excess syndrome. We will obtain serial chemistries and supplement acco rdingly as needed. Imani Zambrano MD cc: [id number] TT: 09/25/2016 12:55:13 Confirmation # [id number] Dictation # [id number] ln
--- NOTE | 2016-09-25 12:57 | CON ---
DATE: 09/25/2016 The patient is a 51-year-old -Ang[place] female with multiple medical issues currently the CCU ( please refer to the medical notes for full list of medical history and current issues), no prior psyc hiatric history or medication management who is experiencing an adjustment disorder with depression a nd anxiety related to current hospitalization. Psychiatry was called to follow up the patient and of rosa recommendations to better manage her for anxiety and restlessness on the unit. I met with patient at bedside and interviewed her as well as for her daughter who was also present. The patient felt comfortable participating in interview in front of her daughter. The patient feels tired; however, she is cooperative and communicates her needs well. She is oriented to month and the year and she is aware of current circumstances and location. The patient reports that she is experi encing some depression related to her current circumstances and indicated helplessness regarding her progress in the hospital. The patient has also been anxious and is having trouble sleeping at night as well. She does hope to improve. She is not hopeless. She is not hallucinating. Her daughter taylor cali is in agreement with the patient's recollection of current progress and her daughter indicate s that her mother does not have any psychiatric issues and generally was very upbeat and high functio radha prior to her hospitalization in contrast to her current situation at this time leading to her fe elings of helplessness and depression. Presently, the patient is coherent and her responses are cons istent. She does not show much confusion at this time. Her daughter does confirm that her mother is more lucid currently, however, does have periods of confusion, disorientation consistent with deliri um related to her multiple medical issues. At this time, patient feels comfortable to have her anxie ty addressed as well as trouble sleeping and the daughter is in agreement. Her insight and judgment are considered to be fair. Impulse control is considered to be intact at this time. SOCIAL HISTORY: The patient was born and raised in [place]. She for 30+ years. She jhoan es with her . She has 4 grown daughters. 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 She does not have any drug or alcohol issues. She denies having any legal issues a s well. PSYCHIATRIC HISTORY: The patient does not have any formal psychiatric history, no medication managem ent, no medication trials. She denies any suicide attempts in her history. ASSESSMENT: Adjustment disorder, with depression, and anxiety. CURRENT MEDICATIONS: Reviewed. Relevant psychiatric medications include Ativan 0.5 mg IV q. 4 hours p.r.n. of which she received 1 dose this at 1 a.m. this morning, but she received 3 doses yesterday. CURRENT LABORATORY DATA: Reviewed by this provider. RECOMMENDATIONS: At this time the family prefers conservative first approach to the patient's sympto ms at this time. We will discontinue Ativan in favor of Klonopin, hopefully ____ for this patient. Will be conservative in dosing and offer Klonopin 0.25 during the day and 0.5 at night and reevaluate in the a.m. As mentioned, I will discontinue Ativan p.r.n., and will also try to minimize benzos i n general because of patient's delirium on the unit, which appears to be improving, but still present . As noted psychiatry will follow up in a.m. Mohan Levin MD cc: [id number] TT: 09/25/2016 12:56:40 Confirmation # [id number] Dictation # [id number] jn
[2016-09-25 14:03] LABS: CALCULATED TOTAL (E/NE) 15 mcg/24 h (26-121); DOPAMINE 24 HR UR 46 mcg/24 h (52-480); NOREPINEPHRINE 24 HR UR 15 mcg/24 h (15-100)
--- NOTE | 2016-09-26 00:25 | PN ---
DATE: 09/25/2016 A 51-year-old female, history of hypertension uncontrolled, admitted with hypertensive emergency, acu te renal failure. The patient reporting feeling well. No shortness of breath. No more substernal/e pigastric pain. VITALS: This morning, blood pressure 176/107, heart rate 67, respirations 26, and O2 sat 95%. EXAMINATION: GENERAL: No apparent distress. Able to converse coherently in full sentences. HEENT: Moist mucous membranes. No scleral icterus. CHEST: Mild basilar crackles. No rhonchi, no wheezes. HEART: S1, S2 positive, no murmurs, no rubs, no gallops. ABDOMEN: Soft, nontender, nondistended. EXTREMITIES: Very mild lower leg edema bilaterally, improved. ASSESSMENT: 1. Acute renal failure on chronic kidney disease. Chronic renal insufficiency indicated by thin fior l cortices. Acute component likely secondary to malignant hypertension and need to control blood pre ssure emergently in the setting of posterior reversible encephalopathy (PRES) syndrome. Renal functi on relatively stable over the last few days. The patient likely at her baseline function. Recommend to keep systolic blood pressure in 150s-160 range. Discussed with the patient the need for close out patient followup, as she has late stage IV chronic kidney disease and will need to prepare for either preemptive transplant or dialysis in the long run. 2. Hypertensive emergency. Blood pressures improved later this morning. Coreg dose added yesterday increased to 25 mg b.i.d. today. If blood pressure again high, should increase dose of doxazosin to 4 mg at bedtime. 3. Malignant hypertension. Suspected pheochromocytoma indicated by elevated plasma metanephrines, an d now with elevated 24-hour urine for metanephrines. Discussed case within nanny/household manager, who agre es that we should get MRI of the abdomen without gadolinium to look for an adrenal lesion, although t he possibly exists of a paraganglionic lesion. 4. Congestive heart failure with systolic dysfunction, on torsemide 10 mg twice daily and Aldactone. Leg edema significantly improved. Continue same diuretics for now 5. Anemia stable, secondary to iron deficiency, status post 2 units packed red blood cells. Shane Rosen MD cc: [id number] TT: 09/26/2016 00:24:30 Confirmation # [id number] Dictation # [id number] jn
[2016-09-26 05:39] LABS: ADD MANUAL DIFF? NO
[2016-09-26 05:52] LABS: BASO # 0.03 K/mm3 (0.0-2.0); BASO % 0.5 % (0.0-3.0); EOS # 0.2 (0.0-0.7); EOS % 2.6 % (1.5-5.0); GRAN # 3.83 (1.4-6.5); HEMATOCRIT 29.9 % (36.0-48.0); LYMPH # 1.2 (1.2-3.4); LYMPH % 21.7 % (22.0-35.0); MEAN CELL VOLUME 87.2 fL (80.0-105.0); MEAN CORPUSCULAR HEMOGLOBIN 30.3 pg (25.0-35.0); MEAN CORPUSCULAR HGB CONC 34.8 g/dl (31.0-37.0); MEAN PLATELET VOLUME 10.7 fl (7.0-11.0); MONO # 0.5 (0.1-0.6); MONO % 8.2 % (1.0-6.0); PLATELET COUNT 278 10^3/uL (120.0-450.0); RED CELL DISTRIBUTION WIDTH 15.9 % (11.5-14.5); WHITE BLOOD COUNT 5.7 10^3/ul (4.5-11.0)
[2016-09-26 05:53] LABS: ALB/GLOB RATIO 0.9 (1.1-1.8); BILIRUBIN,TOTAL 0.4 mg/dL (0.2-1.3); CALCIUM 8.5 mg/dL (8.4-10.5); PHOSPHOROUS 4.7 mg/dL (2.5-4.5); POTASSIUM 3.9 mmol/L (3.6-5.0); TOTAL PROTEIN 6.5 g/dL (5.8-8.3)
[2016-09-26] MEDS: Pantoprazole 40 mg EC Tab PO SCH (08:32)
[2016-09-26] MEDS: Docusate-Senna 50 mg-8.6 mg Tab PO SCH (09:01)
[2016-09-26] MEDS: POLYETHYLENE GLYCOL 3350 17 GM/Dose PACKET PO SCH ×2 (09:01→17:15)
[2016-09-26] MEDS: clonazePAM 0.125 mg Disinteg Tab PO SCH (09:02)
--- NOTE | 2016-09-26 10:30 | CP.PCM.PN ---
Subjective - Date & Time of Evaluation Date of Evaluation: 09/26/16 Time of Evaluation: 10:00 - Subjective Subjective: Comfortable in bed, not in distress, no fevers overnight, no chest pain, no SOB , no cough, no dysuria, no diarrhea. Objective - Vital Signs/Intake and Output Vital Signs (last 24 hours): Temp Pulse Resp BP Pulse Ox 97.8 F 63 12 188/100 H 100 09/26/16 08:00 09/26/16 09:03 09/26/16 09:00 09/26/16 09:03 09/26/16 09:00 Intake and Output: 09/26/16 09/26/16 06:59 18:59 Intake Total 1200 Output Total 901 Balance 299 - Medications Medications: Current Medications Acetaminophen (Tylenol 325mg Tab) 650 mg PO Q4H PRN PRN Reason: headache Last Admin: 09/26/16 00:20 Dose: 650 mg Amlodipine Besylate (Norvasc) 10 mg PO DAILY [facility] Last Admin: 09/26/16 09:03 Dose: 10 mg Aspirin (Ecotrin) 81 mg PO DAILY [facility] Last Admin: 09/26/16 09:02 Dose: 81 mg Carvedilol (Coreg) 25 mg PO BID [facility] Last Admin: 09/26/16 09:01 Dose: 25 mg Clonazepam (Klonopin Wafers) 0.125 mg PO QAM [facility] PRN Reason: Protocol Last Admin: 09/26/16 09:02 Dose: 0.125 mg Clonazepam (Klonopin) 0.5 mg PO HS [facility] PRN Reason: Protocol Last Admin: 09/25/16 21:39 Dose: 0.5 mg Clonidine HCl (Catapres) 0.3 mg PO Q8 [facility] Last Admin: 09/26/16 05:12 Dose: 0.3 mg Docusate Sodium (Colace) 100 mg PO DAILY [facility] Last Admin: 09/26/16 09:03 Dose: 100 mg Doxazosin Mesylate (Cardura) 4 mg PO HS ANNA Hydralazine HCl (Apresoline) 50 mg PO Q6 [facility] Last Admin: 09/26/16 05:13 Dose: 50 mg Nicardipine HCl (Cardene Iv Premix) 200 mls @ 50 mls/hr IV .Q4H PRN; Protocol; 5 MG/HR PRN Reason: TITRATE PER MD ORDER Last Titration: 09/24/16 14:49 Dose: 0 mg/hr Isosorbide Mononitrate (Imdur) 120 mg PO DAILY [facility] Last Admin: 09/26/16 09:03 Dose: 120 mg Lorazepam (Ativan) 0.5 mg IVP ONCE ONE PRN Reason: Protocol Stop: 09/26/16 10:26 Multi-Ingredient Cream (Hydrocerin Cream) 1 ea TOP BID PRN PRN Reason: Dry nasal passages Ondansetron HCl (Zofran Inj) 4 mg IVP Q8H PRN PRN Reason: Nausea/Vomiting Last Admin: 09/19/16 03:52 Dose: 4 mg Pantoprazole Sodium (Protonix Ec Tab) 40 mg PO ACB [facility] Last Admin: 09/26/16 08:32 Dose: 40 mg Polyethylene Glycol (Miralax) 17 gm PO BID [facility] Last Admin: 09/26/16 09:01 Dose: 17 gm Senna/Docusate Sodium (Senokot S 50 Mg-8.6 Mg) 1 tab PO DAILY [facility] Last Admin: 09/26/16 09:01 Dose: 1 tab Sodium Chloride ([place] Nasal [place]) 0 ml NS BID [facility] Last Admin: 09/26/16 09:04 Dose: 1 spr Spironolactone (Aldactone) 50 mg PO DAILY [facility] Last Admin: 09/26/16 09:04 Dose: 50 mg Torsemide (Demadex) 10 mg PO BID [facility] Last Admin: 09/26/16 09:04 Dose: 10 mg - Labs Labs: 09/26/16 05:15 09/26/16 05:15 PT 11.7 Seconds (9.9-11.8) 09/19/16 11:50 INR 1.08 (0.93-1.08) 09/19/16 11:50 APTT 26.4 Seconds (23.7-30.8) 09/13/16 10:30 - Constitutional Appears: Non-toxic, No Acute Distress - Head Exam Head Exam: NORMAL INSPECTION - ENT Exam ENT Exam: Mucous Membranes Moist - Neck Exam Neck Exam: absent: Lymphadenopathy, Meningismus - Respiratory Exam Respiratory Exam: Decreased Breath Sounds - Cardiovascular Exam Cardiovascular Exam: +S1, +S2 - GI/Abdominal Exam GI & Abdominal Exam: Soft. absent: Tenderness Assessment and Plan - Assessment and Plan (Free Text) Plan: Assessment S/P Systemic Inflammatory Response Syndrome probably secondary to hypertensive urgency / emergency with associated Posterior Reversible Encephalopathy Syndrome (PRES) and acute renal failure S/P sepsis from urinary tract infection with E. coli; clinically improved and S/ P treatment Coagulase negative Staph in one blood cx bottle, most likely contamination HTN, poorly-controlled history of glaucoma history of cataracts sickle cell trait S/P Caesarian section obesity with BMI 31 Plan continue to monitor off antibiotics and observe since she is at risk for hospital-acquired infections Will continue to monitor clinically
--- NOTE | 2016-09-26 11:59 | CP.PCM.PN ---
<RamseyLuciano - Last Filed: 09/26/16 11:50> Subjective - Date & Time of Evaluation Date of Evaluation: 09/26/16 Time of Evaluation: 07:30 - Subjective Subjective: PGY-1 Medicine Progress Note for Dr. Linda Patient seen and examined at bedside. No acute event overnight. Patient is resting in bed comfortably. Patient feeling better today and has no specific complaint. Patient is going for MRI Abdomen without contrast today. Nicardipine drip was stopped yesterday. Systolic blood pressure varying 150s-160s. Denied fever/chills, cp, SOB, palpitations, abd pain, n/v/d, constipation, incontinence , numbness/tingling. Objective - Vital Signs/Intake and Output Vital Signs (last 24 hours): Temp Pulse Resp BP Pulse Ox 97.8 F 63 17 165/96 H 100 09/26/16 08:00 09/26/16 10:00 09/26/16 10:00 09/26/16 10:00 09/26/16 10:00 Intake and Output: 09/26/16 09/26/16 06:59 18:59 Intake Total 1200 Output Total 901 Balance 299 - Medications Medications: Current Medications Acetaminophen (Tylenol 325mg Tab) 650 mg PO Q4H PRN PRN Reason: headache Last Admin: 09/26/16 00:20 Dose: 650 mg Amlodipine Besylate (Norvasc) 10 mg PO DAILY [facility] Last Admin: 09/26/16 09:03 Dose: 10 mg Aspirin (Ecotrin) 81 mg PO DAILY [facility] Last Admin: 09/26/16 09:02 Dose: 81 mg Carvedilol (Coreg) 25 mg PO BID [facility] Last Admin: 09/26/16 09:01 Dose: 25 mg Clonazepam (Klonopin Wafers) 0.125 mg PO QAM [facility] PRN Reason: Protocol Last Admin: 09/26/16 09:02 Dose: 0.125 mg Clonazepam (Klonopin) 0.75 mg PO HS [facility] PRN Reason: Protocol Clonidine HCl (Catapres) 0.3 mg PO Q8 [facility] Last Admin: 09/26/16 05:12 Dose: 0.3 mg Docusate Sodium (Colace) 100 mg PO DAILY [facility] Last Admin: 09/26/16 09:03 Dose: 100 mg Doxazosin Mesylate (Cardura) 4 mg PO HS [facility] Hydralazine HCl (Apresoline) 50 mg PO Q6 [facility] Last Admin: 09/26/16 05:13 Dose: 50 mg Nicardipine HCl (Cardene Iv Premix) 200 mls @ 50 mls/hr IV .Q4H PRN; Protocol; 5 MG/HR PRN Reason: TITRATE PER MD ORDER Last Titration: 09/24/16 14:49 Dose: 0 mg/hr Isosorbide Mononitrate (Imdur) 120 mg PO DAILY [facility] Last Admin: 09/26/16 09:03 Dose: 120 mg Multi-Ingredient Cream (Hydrocerin Cream) 1 ea TOP BID PRN PRN Reason: Dry nasal passages Ondansetron HCl (Zofran Inj) 4 mg IVP Q8H PRN PRN Reason: Nausea/Vomiting Last Admin: 09/19/16 03:52 Dose: 4 mg Pantoprazole Sodium (Protonix Ec Tab) 40 mg PO ACB [facility] Last Admin: 09/26/16 08:32 Dose: 40 mg Polyethylene Glycol (Miralax) 17 gm PO BID [facility] Last Admin: 09/26/16 09:01 Dose: 17 gm Senna/Docusate Sodium (Senokot S 50 Mg-8.6 Mg) 1 tab PO DAILY [facility] Last Admin: 09/26/16 09:01 Dose: 1 tab Sodium Chloride ([place] Nasal [place]) 0 ml NS BID [facility] Last Admin: 09/26/16 09:04 Dose: 1 spr Spironolactone (Aldactone) 50 mg PO DAILY [facility] Last Admin: 09/26/16 09:04 Dose: 50 mg Torsemide (Demadex) 10 mg PO BID [facility] Last Admin: 09/26/16 09:04 Dose: 10 mg - Labs Labs: 09/26/16 05:15 09/26/16 05:15 PT 11.7 Seconds (9.9-11.8) 09/19/16 11:50 INR 1.08 (0.93-1.08) 09/19/16 11:50 APTT 26.4 Seconds (23.7-30.8) 09/13/16 10:30 - Constitutional Appears: No Acute Distress - Head Exam Head Exam: ATRAUMATIC, NORMOCEPHALIC - Eye Exam Eye Exam: EOMI, Normal appearance Pupil Exam: PERRL - ENT Exam ENT Exam: Mucous Membranes Moist - Neck Exam Neck Exam: Normal Inspection - Respiratory Exam Respiratory Exam: Clear to Ausculation Bilateral, NORMAL BREATHING PATTERN - Cardiovascular Exam Cardiovascular Exam: RRR, +S1, +S2 - GI/Abdominal Exam GI & Abdominal Exam: Soft. absent: Distended, Firm, Guarding, Tenderness, Normal Bowel Sounds, Rebound - Extremities Exam Extremities Exam: Normal Capillary Refill - Back Exam Back Exam: absent: CVA tenderness (L), CVA tenderness (R) - Neurological Exam Neurological Exam: Alert, Awake, CN II-XII Intact, Oriented x3 - Psychiatric Exam Psychiatric exam: Normal Affect, Normal Mood - Skin Skin Exam: Dry, Intact, Normal Color, Warm Assessment and Plan - Assessment and Plan (Free Text) Plan: 51 F with history of HTN, non compliant with medications at home, sickle cell trait, glaucoma, marijuana use, former alcohol abuser who presented with hypertensive emergency and found to have dehydration, hyponatremia, hypokalemia , elevated troponin, CHF due to systolic dysfunction (EF 35-40%), acute kidney injury, sepsis secondary to UTI and PRES syndrome. 1. Hypertensive Emergency Transfer to Telemetry today f/u MRI Abdomen w/o contrast NORMA: no evidence of dissection or aortic root dilatation Endocrinology consult, Dr. Montes, help appreciated Re-Consult Neuro for re-evaluation of PRES, Dr. Rhonda Anne, help appreciated CT chest/abd/pelvis: unremarkable (see full report) ECHO: LV normal size, mild concentric LVH, mild-mod impaired systolic function EF35-40, mild-mod hypokinesis apical anterior wall, mild mitral regurg, trace aortic regurg, mild tricuspid regurg Renal US: Medical renal disease, 1.6 cm simple cyst on upper pole of r kidney ( see full report). MRI Brain: extensive signal abnormality in brainstem and basal ganglia bilaterally, particularly thalami, suspicious for edema. Extensive white matter signal abnormality in cerebral hemispheres bilaterally. Uncertain etiology, could be hypertensive/infectious/inflammatory encephalopathy extensive demyelinating disease, toxic insult, or underlying metabolic abnormality (see full report). CT head: extensive hypodensity in the periventricular white matter, sheyla, and cerebellar white matter. Could represent vasogenic edema related to HTN or chronic microvascular disease (see full report). CT chest: mild cardiomegaly, very mild emphysematous changes in lung apices bilaterally (see full report). CT abd/pelvos: Right ovarian cyst (see full report). Carotid duplex: bilateral 20-39% stenoses of proximal ICA, anterograde flow in both vertebral arteries (see full report). Urine metanephrines elevated, suspicious for Pheochromocytoma, needs confirmatory test - MRI Abdomen today ASA 81 mg PO daily Aldactone 50 mg PO daily Norvasc 10 mg PO daily Hydralazine 50 mg PO Q6H Clonidine 0.3 mg PO Q8H Isosorbide Mononitrate 120 mg PO daily Torsemide 10 mg PO BID Cardura 2 mg PO HS Coreg 25 mg PO BID Nicardipine drip stopped 09/24 2. Chest Pain NORMA: no evidence of dissection or aortic root dilatation CT chest/abd/pelvis: unremarkable (see full report) ECHO: LV normal size, mild concentric LVH, mild-mod impaired systolic function EF35-40, mild-mod hypokinesis apical anterior wall, mild mitral regurg, trace aortic regurg, mild tricuspid regurg Carotid duplex: bilateral 20-39% stenoses of proximal ICA, anterograde flow in both vertebral arteries (see full report). ASA 81 mg PO daily Aldactone 50 mg PO daily Norvasc 10 mg PO daily Hydralazine 50 mg PO Q6H Clonidine 0.3 mg PO Q8H Isosorbide Mononitrate 120 mg PO daily Torsemide 10 mg PO BID Cardura 2 mg PO HS Coreg 25 mg PO BID Nicardipine drip stopped 09/24 Nephro consult, Dr. Mcgarry, help appreciated Ophthlamology consult, Dr. Bae, help appreciated Cardio consult, Dr. Carson, help appreciated Cardiac enzymes 09/13-0.20-->0.28-->1.98-->1.43-->2.43-->2.24-->0.54-->09/21-0.21 f/u daily labs BNP 22662 3. ESTEFANI Bun/Cr: 59/3.7 Renal US: Medical renal disease, 1.6 cm simple cyst on upper pole of r kidney ( see full report). Nephrology consult, Dr. Rosen, help appreciated Maintain sys 150-160 and bolanos <110 Discontinue nicardipine drip, continue oral anti-hypertensives Urine metanephrines elevated, suspicious for Pheochromocytoma, needs confirmatory test - MRI Abdomen today 4. Dyspnea NORMA: no evidence of dissection or aortic root dilatation CT chest/abd/pelvis: unremarkable (see full report) ECHO: LV normal size, mild concentric LVH, mild-mod impaired systolic function EF35-40, mild-mod hypokinesis apical anterior wall, mild mitral regurg, trace aortic regurg, mild tricuspid regurg Carotid duplex: bilateral 20-39% stenoses of proximal ICA, anterograde flow in both vertebral arteries (see full report). ASA 81 mg PO daily Aldactone 50 mg PO daily Norvasc 10 mg PO daily Hydralazine 50 mg PO Q6H Clonidine 0.3 mg PO Q8H Isosorbide Mononitrate 120 mg PO daily Torsemide 10 mg PO BID Cardura 2 mg PO HS Coreg 25 mg PO BID Nicardipine drip stopped 09/24 Nephro consult, Dr. Mcgarry, help appreciated Opthlamology consult, Dr. Bae, help appreciated Cardio consult, Dr. Carson, help appreciated Cardiac enzymes 09/13-0.20-->0.28-->1.98-->1.43-->2.43-->2.24-->0.54-->09/21-0.21 BNP [address] abd/pelvis revealed 3.5 x 5 cm R ovarian cyst [employer] consult, Dr. Meeks, help appreciated 6. Anemia Iron sucrose 200 mg IVPB daily transfused 2 units PRBC this admission 7. Glaucoma Tropicamide 1% 1 drop OU 8. Epitaxis resolved 9. Abnormal LFTs Downtrending GI consult, Dr. Moran, help appreciated Surgery consulted, Dr. Zamarripa, help appreciated Abdominal US: fatty infiltration of the liver, gallbladder sludge without cholelithiasis, nonspecific thickening of gallbladder wall [see full report] HIDA scan: Normal ABXR: constipation 10. UTI resolved 11. Adjustment disorder with Anxiety and Depression Psych consult, Dr. Levin, help appreciated Klonopin 0.75 mg PO HS 12. Prophylactic measures Pepcid 20 mg PO daily Colace 100 mg PO daily Miralax 17 gm PO BID Ensure enlive daily Heart Healthy Diet <[place] Linda - Last Filed: 09/26/16 14:47> Objective - Vital Signs/Intake and Output Vital Signs (last 24 hours): Temp Pulse Resp BP Pulse Ox 97.9 F 60 21 152/85 H 99 09/26/16 12:00 09/26/16 14:00 09/26/16 14:00 09/26/16 14:00 09/26/16 14:00 Intake and Output: 09/26/16 09/26/16 06:59 18:59 Intake Total 1200 720 Output Total 901 600 Balance 299 120 - Medications Medications: Current Medications Acetaminophen (Tylenol 325mg Tab) 650 mg PO Q4H PRN PRN Reason: headache Last Admin: 09/26/16 00:20 Dose: 650 mg Amlodipine Besylate (Norvasc) 10 mg PO DAILY [facility] Last Admin: 09/26/16 09:03 Dose: 10 mg Aspirin (Ecotrin) 81 mg PO DAILY [facility] Last Admin: 09/26/16 09:02 Dose: 81 mg Carvedilol (Coreg) 25 mg PO BID [facility] Last Admin: 09/26/16 09:01 Dose: 25 mg Clonazepam (Klonopin Wafers) 0.125 mg PO QAM [facility] PRN Reason: Protocol Last Admin: 09/26/16 09:02 Dose: 0.125 mg Clonazepam (Klonopin) 0.75 mg PO HS [facility] PRN Reason: Protocol Clonidine HCl (Catapres) 0.3 mg PO Q8 [facility] Last Admin: 09/26/16 13:26 Dose: 0.3 mg Docusate Sodium (Colace) 100 mg PO DAILY [facility] Last Admin: 09/26/16 09:03 Dose: 100 mg Doxazosin Mesylate (Cardura) 4 mg PO HS [facility] Hydralazine HCl (Apresoline) 50 mg PO Q6 [facility] Last Admin: 09/26/16 11:56 Dose: 50 mg Nicardipine HCl (Cardene Iv Premix) 200 mls @ 50 mls/hr IV .Q4H PRN; Protocol; 5 MG/HR PRN Reason: TITRATE PER MD ORDER Last Titration: 09/24/16 14:49 Dose: 0 mg/hr Isosorbide Mononitrate (Imdur) 120 mg PO DAILY [facility] Last Admin: 09/26/16 09:03 Dose: 120 mg Multi-Ingredient Cream (Hydrocerin Cream) 1 ea TOP BID PRN PRN Reason: Dry nasal passages Ondansetron HCl (Zofran Inj) 4 mg IVP Q8H PRN PRN Reason: Nausea/Vomiting Last Admin: 09/19/16 03:52 Dose: 4 mg Pantoprazole Sodium (Protonix Ec Tab) 40 mg PO ACB [facility] Last Admin: 09/26/16 08:32 Dose: 40 mg Polyethylene Glycol (Miralax) 17 gm PO BID [facility] Last Admin: 09/26/16 09:01 Dose: 17 gm Senna/Docusate Sodium (Senokot S 50 Mg-8.6 Mg) 1 tab PO DAILY [facility] Last Admin: 09/26/16 09:01 Dose: 1 tab Sodium Chloride ([place] Nasal [place]) 0 ml NS BID [facility] Last Admin: 09/26/16 09:04 Dose: 1 spr Spironolactone (Aldactone) 50 mg PO DAILY [facility] Last Admin: 09/26/16 09:04 Dose: 50 mg Torsemide (Demadex) 10 mg PO BID [facility] Last Admin: 09/26/16 09:04 Dose: 10 mg - Labs Labs: 09/26/16 05:15 09/26/16 05:15 PT 11.7 Seconds (9.9-11.8) 09/19/16 11:50 INR 1.08 (0.93-1.08) 09/19/16 11:50 APTT 26.4 Seconds (23.7-30.8) 09/13/16 10:30 Assessment and Plan - Assessment and Plan (Free Text) Assessment: Attending note; I have seen and examined the patient with the resident in CCU. Episodes of hypertension and palpitation. BUt BP is getting better control with medications. Otherwise clinically improved significantly. HTN; Nicardipine drip stopped. elevated metanephrine levels. 24-hour urine metanephrine is elevated. MRI without contrast is negative for adrenal mass. gallbladder thickening suggested chronic cholecystitis continue Prazosin, hydralazine, clonidine, Imdur, Aldactone, Coreg and Norvasc. prazosin dosage increased today. Endocrinology evaluation with Dr. montes appreciated. Patient needs follow-up with [facility] upon discharge. Acute on chronic kidney disease. creatinine is improving slowly. Nephrology follow-up appreciated. Elevated LFTs; improving. GI evaluation appreciated.patient is tolerating diet. anemia; hemoglobin is stable at 9.8. No active bleeding. anxiety; psychiatric evaluation appreciated. Continue Klonopin. out of bed to chair as tolerated. Transfer to telemetry floor. Upon discharge patient will follow up with Dr.Mary Swann. Attending/Attestation - Attestation I have personally seen and examined this patient.: Yes I have fully participated in the care of the patient.: Yes I have reviewed all pertinent clinical information, including history, physical exam and plan: Yes
--- NOTE | 2016-09-26 12:00 | CON ---
DATE: 09/26/2016 The patient is a 51-year-old -[place] with adjustment disorder with depression and anxiety re lated to current hospitalization in the ICU as well as improving delirium. Psychiatry is following u p with patient due to above symptoms and this is the second time this typewriter assembler has met with patient thi s weekend. Yesterday, this provider discontinued Ativan and started patient on Klonopin 0.125 mg a.m . and 0.5 mg at bedtime to help with anxiety and hopefully help with sleep. I did not start an antid epressant for patient as both patient and daughter indicated that patient is generally very high func tioning and productive outside of the confines of the present medical situation. Presently, patient appears improved and brighter and more communicative and reactive than yesterday. Eye contact is goo d. Focus is fair. She remains oriented to current circumstances, date and year and location. She i ndicates that she feels like she is getting better and she feels that she will continue to get better , but she is "very much looking forward to leaving". Expresses frustration with her lack of mobility and independence as she was quite functional prior to her hospitalization, but she is looking forwar d to her mental and physical improvement. She is tolerated the dose of Klonopin yesterday. However, she still did not sleep. She is willing to increase the dose tonight to see if that improves with t he quality of her sleep. Regarding her daytime anxiety, she appears to be comfortable and she is sti ll willing to take a small dose of Klonopin 0.125 mg as needed to take the "edge off" of the hospital ization. She is coherent, pleasant, generally related and does not show any signs of perceptual dist urbance. Delusions were not elicited and her insight and judgment appear to be good. VITAL SIGNS: Reviewed by this provider and they are elevated. Blood pressures are elevated ranging from 188/100-165/96 this morning. The pulse rates are in the 60s. LABORATORIES: Also reviewed by this provider with no major changes from yesterday. RELEVANT MEDICATIONS: Include Klonopin 0.125 mg p.o. a.m., which patient received 1 dose of this mor radha at 10 a.m. and 0.5 mg p.o. at bedtime. ASSESSMENT: Adjustment disorder with depression and anxiety as well as improving delirium. RECOMMENDATIONS: 1. We will continue with Klonopin 0.125 mg a.m. and increase Klonopin to 0.75 mg at bedtime to hopef ully help improve the quality of her sleep and anxiety during the day. 2. Will consider addition of a sleep, possibly a small dose of Sonata 5 mg at bedtime if Klonopin is not adequate to help with her sleep issues. Psychiatry will follow up with patient in the a.m. to d etermine her tolerance to the medications and the effectiveness of the medication and to monitor her mood, cognition and anxiety. Mohan Levin MD cc: [id number] TT: 09/26/2016 11:59:39 Confirmation # [id number] Dictation # [id number] en
--- NOTE | 2016-09-26 12:42 | MRI ---
PROCEDURE: MRI Abdomen without contrast HISTORY: Rule out adrenal lesion COMPARISON: None available. TECHNIQUE: Multisequence, multiplanar MR images of the abdomen without gadolinium contrast enhancement. FINDINGS: LIVER: Unremarkable. GALLBLADDER: The gallbladder wall is thickened and slightly irregular. Findings could be secondary to chronic cholecystitis. Clinical correlation is suggested. The common duct is normal in size SPLEEN: Unremarkable. ADRENALS: Unremarkable. KIDNEYS: Unremarkable. PANCREAS: Unremarkable. AORTA: No aneurysm. ASCITES: None. PERITONEUM: Unremarkable. LYMPH NODES: Unremarkable. OTHER FINDINGS: None. IMPRESSION: No evidence of adrenal mass. Thickened irregular gallbladder wall possible chronic cholecystitis
--- NOTE | 2016-09-26 15:52 | PN ---
DATE: 09/26/2016 ROOM: CCU 129 room 5. This is a 51-year-old female with progressive renal insufficiency and presenting here with malignant range hypertension and is now being followed closely for metabolic management. The reported adrenal catecholamines were elevated as noted with values over 700 as noted, but the biggest concern here is the fact that the elevated total and free catecholamines have to be correlated with an underlying str uctural lesion in the adrenal glands or in the paraganglionic chain to confirm the presence indeed of an underlying pheochromocytoma and/or a paraganglionoma that will clinch the diagnosis of the aforem entioned which would correlate with the presenting manifestations of malignant hypertension thereof. An MRI of the adrenals will be ordered to confirm and/or indicate the presence of an underlying adre nal tumor, which would corroborate the aforementioned elevated catecholamine levels as mentioned. He r thyroid and cortisol levels have been reported as normal and she indeed is clinically and biochemic ally euthyroid and euadrenal at this time. We will obtain serial chemistries and supplement accordin gly as needed. We will follow. Imani Zambrano MD cc: [id number] TT: 09/26/2016 15:52:07 Confirmation # [id number] Dictation # [id number] mn
--- NOTE | 2016-09-26 22:17 | CP.PCM.PN ---
Subjective - Date & Time of Evaluation Date of Evaluation: 09/26/16 Time of Evaluation: 10:10 - Subjective Subjective: Patient denies any complaints; no more epigastric/low sternal pain; Objective - Vital Signs/Intake and Output Vital Signs (last 24 hours): Temp Pulse Resp BP Pulse Ox 97.9 F 64 20 138/86 96 09/26/16 17:59 09/26/16 18:29 09/26/16 17:59 09/26/16 18:29 09/26/16 17:59 Intake and Output: 09/26/16 09/27/16 18:59 06:59 Intake Total 720 Output Total 600 Balance 120 - Medications Medications: Current Medications Acetaminophen (Tylenol 325mg Tab) 650 mg PO Q4H PRN PRN Reason: headache Last Admin: 09/26/16 00:20 Dose: 650 mg Amlodipine Besylate (Norvasc) 10 mg PO DAILY [facility] Last Admin: 09/26/16 09:03 Dose: 10 mg Aspirin (Ecotrin) 81 mg PO DAILY [facility] Last Admin: 09/26/16 09:02 Dose: 81 mg Carvedilol (Coreg) 25 mg PO BID [facility] Last Admin: 09/26/16 17:01 Dose: 25 mg Clonazepam (Klonopin Wafers) 0.125 mg PO QAM [facility] PRN Reason: Protocol Last Admin: 09/26/16 09:02 Dose: 0.125 mg Clonazepam (Klonopin) 0.75 mg PO HS [facility] PRN Reason: Protocol Clonidine HCl (Catapres) 0.3 mg PO Q8 [facility] Last Admin: 09/26/16 13:26 Dose: 0.3 mg Docusate Sodium (Colace) 100 mg PO DAILY [facility] Last Admin: 09/26/16 09:03 Dose: 100 mg Doxazosin Mesylate (Cardura) 4 mg PO HS [facility] Hydralazine HCl (Apresoline) 50 mg PO Q6 [facility] Last Admin: 09/26/16 17:01 Dose: 50 mg Nicardipine HCl (Cardene Iv Premix) 200 mls @ 50 mls/hr IV .Q4H PRN; Protocol; 5 MG/HR PRN Reason: TITRATE PER MD ORDER Last Titration: 09/24/16 14:49 Dose: 0 mg/hr Isosorbide Mononitrate (Imdur) 120 mg PO DAILY [facility] Last Admin: 09/26/16 09:03 Dose: 120 mg Multi-Ingredient Cream (Hydrocerin Cream) 1 ea TOP BID PRN PRN Reason: Dry nasal passages Ondansetron HCl (Zofran Inj) 4 mg IVP Q8H PRN PRN Reason: Nausea/Vomiting Last Admin: 09/19/16 03:52 Dose: 4 mg Pantoprazole Sodium (Protonix Ec Tab) 40 mg PO ACB [facility] Last Admin: 09/26/16 08:32 Dose: 40 mg Polyethylene Glycol (Miralax) 17 gm PO BID [facility] Last Admin: 09/26/16 17:15 Dose: Not Given Senna/Docusate Sodium (Senokot S 50 Mg-8.6 Mg) 1 tab PO DAILY [facility] Last Admin: 09/26/16 09:01 Dose: 1 tab Sodium Chloride ([place] Nasal [place]) 0 ml NS BID [facility] Last Admin: 09/26/16 17:03 Dose: 1 spr Spironolactone (Aldactone) 50 mg PO DAILY [facility] Last Admin: 09/26/16 09:04 Dose: 50 mg Torsemide (Demadex) 10 mg PO BID [facility] Last Admin: 09/26/16 17:01 Dose: 10 mg - Labs Labs: 09/26/16 05:15 09/26/16 05:15 PT 11.7 Seconds (9.9-11.8) 09/19/16 11:50 INR 1.08 (0.93-1.08) 09/19/16 11:50 APTT 26.4 Seconds (23.7-30.8) 09/13/16 10:30 - Constitutional Appears: Non-toxic, No Acute Distress - Head Exam Head Exam: NORMAL INSPECTION - Eye Exam Eye Exam: Normal appearance. absent: Scleral icterus - ENT Exam ENT Exam: Mucous Membranes Moist - Neck Exam Neck Exam: Normal Inspection - Respiratory Exam Respiratory Exam: NORMAL BREATHING PATTERN Additional comments: minimal R basal rhales - Cardiovascular Exam Cardiovascular Exam: REGULAR RHYTHM, +S1, +S2 - GI/Abdominal Exam GI & Abdominal Exam: Soft. absent: Distended, Tenderness - Exam Exam: absent: Bladder Distension - Extremities Exam Additional comments: mild lower leg edema, improved - Neurological Exam Neurological Exam: Alert, Awake - Psychiatric Exam Psychiatric exam: Normal Affect, Normal Mood - Skin Skin Exam: Normal Color. absent: Cyanosis Assessment and Plan (1) Acute kidney injury Assessment & Plan: ESTEFANI on CKD; relatively stable renal function; likely close to baseline; needs close outpatient f/u to prepare for dialysis and transplantation; Status: Acute (2) PRES (posterior reversible encephalopathy syndrome) Assessment & Plan: Per MRI findings and clinical presentation; keep DBP < 110; Status: Acute (3) Hypertensive emergency Assessment & Plan: BP improved overall; increasing doxazosin to 4 mg tonight; Status: Acute (4) Malignant hypertension Assessment & Plan: Biochemical and clinical evidence of pheochromocytoma; MRI abdomen looking at adrenals today was negative for any lesion; will needs nuclear scan to look for para-aortic ganglioma as outpatient; will discuss again with endo; Status: Acute (5) CHF (congestive heart failure) Assessment & Plan: With systolic dysfunction; continue coreg, diuretics; Status: Acute
[2016-09-27 06:19] LABS: ADD MANUAL DIFF? NO
[2016-09-27 06:24] LABS: BASO # 0.01 K/mm3 (0.0-2.0); BASO % 0.2 % (0.0-3.0); EOS # 0.1 (0.0-0.7); EOS % 2.3 % (1.5-5.0); GRAN # 3.98 (1.4-6.5); GRAN % 69.6 % (50.0-68.0); HEMATOCRIT 29.9 % (36.0-48.0); LYMPH # 0.9 (1.2-3.4); LYMPH % 15.6 % (22.0-35.0); MEAN CELL VOLUME 87.4 fL (80.0-105.0); MEAN CORPUSCULAR HEMOGLOBIN 30.4 pg (25.0-35.0); MEAN CORPUSCULAR HGB CONC 34.8 g/dl (31.0-37.0); MEAN PLATELET VOLUME 10.7 fl (7.0-11.0); MONO # 0.7 (0.1-0.6); MONO % 12.3 % (1.0-6.0); PLATELET COUNT 260 10^3/uL (120.0-450.0); RED CELL DISTRIBUTION WIDTH 15.7 % (11.5-14.5); WHITE BLOOD COUNT 5.7 10^3/ul (4.5-11.0)
[2016-09-27 06:51] LABS: ALB/GLOB RATIO 0.9 (1.1-1.8); BILIRUBIN,TOTAL 0.4 mg/dL (0.2-1.3); CALCIUM 8.4 mg/dL (8.4-10.5); MAGNESIUM 1.9 mg/dL (1.7-2.2); PHOSPHOROUS 4.5 mg/dL (2.5-4.5); POTASSIUM 3.6 mmol/L (3.6-5.0); TOTAL PROTEIN 6.6 g/dL (5.8-8.3)
[2016-09-27] MEDS: Pantoprazole 40 mg EC Tab PO SCH (08:23)
--- NOTE | 2016-09-27 08:36 | PN ---
DATE: 09/24/2016 A 51-year-old female with a history of hypertension, admitted with hypertensive emergency. Nephrolog y consulted for acute renal failure. The patient today reports having one of her spells for last nig ht during which she had some low sternal/epigastric pain. The patient restarted on nicardipine drip but turned off this afternoon. PHYSICAL EXAMINATION: VITAL SIGNS: This afternoon: Blood pressure 148/79, heart rate 72, respiration 29, O2 sat 94%. GENERAL: The patient is comfortable, in no distress, able to converse coherently in full sentences. HEENT: Moist mucous membranes. No scleral icterus. CHEST: Clear to auscultation bilaterally. No rhonchi, no rales, no wheezes. HEART: S1, S2 positive. Regular rate and rhythm. ABDOMEN: Soft, nontender, nondistended. EXTREMITIES: Bilateral lower leg moderate edema. LABORATORY DATA: This morning: WBC 6.0, hemoglobin 9.8, hematocrit 28.2, platelet 275. Chemistry: Sodium 134, potassium 3.4, chloride 101, bicarbonate 25, BUN 57, creatinine 3.9, glucose 101, calciu m 8.4, phosphatase 4.5, albumin 2.9. A 24-hour urine for metanephrines: Total metanephrines 1235 mc g, metanephrines 452 mcg, normetanephrine 783 mcg, all over a 24-hour period. ASSESSMENT: 1. Acute renal failure on chronic kidney disease. Baseline creatinine unknown, but imaging showing thin cortices, acute renal failure in the setting of malignant hypertension and the need to lower blo od pressure emergently. Serum creatinine fluctuating, but relatively stable. Continue with blood pr essure control with target systolic blood pressure in 150s to 160 range. 2. Posterior reversible encephalopathy syndrome per MRI findings and presentation with hypertensive emergency. Need to keep diastolic blood pressure below 110. 3. Hypertensive emergency. Off nicardipine drip this afternoon. Coreg restarted today. On increas ed dose of doxazosin since the last 2 days. Continue with the rest of regimen. 4. Malignant hypertension. Workup for pheochromocytoma has been done with plasma metanephrines as w ell as urinary metanephrines that returned today. Plasma metanephrines almost 4 times the upper limi t of normal. The 24-hour urine metanephrines also suggestive of pheochromocytoma. Will discuss with overcoiler as to the next step, which is an imaging study. MRI without gadolinium would likely be the best choice since CT with contrast is relatively contraindicated in the setting of renal fail ure. The patient at this point is on adequate alpha blockade and started as well on beta blockade an d is on an extensive blood pressure regimen including more loop diuretics and aldosterone blockade. Continue the same. 5. Congestive heart failure with systolic dysfunction per echo. The patient with lower extremity ed layla, elevated jugular venous distention and shortness of breath at times. Continue diuretics. May n eed to increase further. 6. Chronic kidney disease. Will obtain urine for protein and creatinine. Shane Rosen MD cc: [id number] TT: 09/24/2016 20:48:34 Confirmation # [id number] Dictation # [id number]
[2016-09-27] MEDS: clonazePAM 0.125 mg Disinteg Tab PO SCH (09:14)
[2016-09-27] MEDS: POLYETHYLENE GLYCOL 3350 17 GM/Dose PACKET PO SCH ×2 (09:14→17:50)
[2016-09-27] MEDS: Docusate-Senna 50 mg-8.6 mg Tab PO SCH (09:15)
[2016-09-27 12:49] LABS: METANEPHRINES 80 pg/mL (<=57); TOTAL METANEPHRINES 121 pg/mL (<=205)
--- NOTE | 2016-09-27 13:57 | PN ---
DATE: 09/27/2016 ROOM: 377 This is a 51-year-old female with recent accelerated hypertension and supervening progressive renal i nsufficiency and currently on a multidose drug regimen for control of her hypertensive accelerations and is now also being followed closely for metabolic management. There was a possibility of an endoc rine related hypertension caused by pheochromocytoma because of the elevated metanephrines as ordered . The latest chemistry showed a BUN of 59, sodium 135, potassium 3.9, chloride 98, CO2 28, glucose 96 a nd creatinine 3.7. Her cortisol level is 18.5 with a TSH of 3.8. Her plasma metanephrines have been reported as 795. The MRI obtained did not show any kind of adrenal mass lesion which could corrobor ate with the elevated catecholamines as ordered. The most common etiology for elevated metanephrines could be just related to the intercurrent physica l stressors, especially with malignant hypertension, which would contribute to the accelerated readin gs of her metanephrine levels accordingly. Would continue the current medical management with a mult idrug combination for control of her malignant hypertension as given. In the absence of a structural lesion in the adrenal gland area and/or any other paraganglioma, cystic lesions, it would be quite d ifficult to clinch the diagnosis of pheochromocytoma causing the catecholamine excess syndrome as not ed thereof. As she stabilizes hemodynamically and even on the outpatient, would repeat the plasma fr ee metanephrine levels accordingly. We will follow. Imani Zambrano MD cc: [id number] TT: 09/27/2016 13:56:43 Confirmation # [id number] Dictation # [id number] en
--- NOTE | 2016-09-27 14:36 | CP.PCM.PCO ---
Physician Communication Note - Physician Communication Note Physician Communication Note: pt went for test, d/w RN, pt is less anxious, no acute issues, will f/u joselyn
--- NOTE | 2016-09-27 15:12 | CP.PCM.PN ---
<Madelyn Raya - Last Filed: 09/27/16 15:03> Subjective - Date & Time of Evaluation Date of Evaluation: 09/27/16 Time of Evaluation: 15:03 - Subjective Subjective: Note for Hospitalist PT s&e w attending. PT was transfered to [facility]. No complainsts. Denies NEIL, F/C/N/ V/D/CP/dizziness. Pt wishes to go home. Objective - Vital Signs/Intake and Output Vital Signs (last 24 hours): Temp Pulse Resp BP Pulse Ox 98 F 65 20 181/102 H 99 09/27/16 08:52 09/27/16 09:14 09/27/16 08:52 09/27/16 09:14 09/27/16 08:52 Intake and Output: 09/27/16 09/27/16 06:59 18:59 Intake Total 700 Balance 700 - Medications Medications: Current Medications Acetaminophen (Tylenol 325mg Tab) 650 mg PO Q4H PRN PRN Reason: headache Last Admin: 09/27/16 08:23 Dose: 650 mg Amlodipine Besylate (Norvasc) 10 mg PO DAILY [facility] Last Admin: 09/27/16 09:14 Dose: 10 mg Aspirin (Ecotrin) 81 mg PO DAILY [facility] Last Admin: 09/27/16 09:13 Dose: 81 mg Carvedilol (Coreg) 25 mg PO BID [facility] Last Admin: 09/27/16 09:12 Dose: 25 mg Clonazepam (Klonopin) 1 mg PO HS ANNA PRN Reason: Protocol Clonazepam (Klonopin) 0.5 mg PO DAILY ANNA PRN Reason: Protocol Clonidine HCl (Catapres) 0.3 mg PO Q8 [facility] Last Admin: 09/27/16 05:47 Dose: 0.3 mg Docusate Sodium (Colace) 100 mg PO DAILY [facility] Last Admin: 09/27/16 09:12 Dose: 100 mg Doxazosin Mesylate (Cardura) 4 mg PO HS [facility] Last Admin: 09/26/16 22:17 Dose: 4 mg Hydralazine HCl (Apresoline) 50 mg PO Q6 [facility] Last Admin: 09/27/16 05:46 Dose: 50 mg Nicardipine HCl (Cardene Iv Premix) 200 mls @ 50 mls/hr IV .Q4H PRN; Protocol; 5 MG/HR PRN Reason: TITRATE PER MD ORDER Last Titration: 09/24/16 14:49 Dose: 0 mg/hr Isosorbide Mononitrate (Imdur) 120 mg PO DAILY [facility] Last Admin: 09/27/16 09:33 Dose: 120 mg Multi-Ingredient Cream (Hydrocerin Cream) 1 ea TOP BID PRN PRN Reason: Dry nasal passages Ondansetron HCl (Zofran Inj) 4 mg IVP Q8H PRN PRN Reason: Nausea/Vomiting Last Admin: 09/19/16 03:52 Dose: 4 mg Pantoprazole Sodium (Protonix Ec Tab) 40 mg PO ACB [facility] Last Admin: 09/27/16 08:23 Dose: 40 mg Polyethylene Glycol (Miralax) 17 gm PO BID [facility] Last Admin: 09/27/16 09:14 Dose: 17 gm Senna/Docusate Sodium (Senokot S 50 Mg-8.6 Mg) 1 tab PO DAILY [facility] Last Admin: 09/27/16 09:15 Dose: 1 tab Sodium Chloride ([place] Nasal [place]) 0 ml NS BID [facility] Last Admin: 09/26/16 17:03 Dose: 1 spr Spironolactone (Aldactone) 50 mg PO DAILY [facility] Last Admin: 09/27/16 09:11 Dose: 50 mg Torsemide (Demadex) 10 mg PO BID [facility] Last Admin: 09/27/16 09:33 Dose: 10 mg - Labs Labs: 09/27/16 06:15 09/27/16 06:15 PT 11.7 Seconds (9.9-11.8) 09/19/16 11:50 INR 1.08 (0.93-1.08) 09/19/16 11:50 APTT 26.4 Seconds (23.7-30.8) 09/13/16 10:30 - Constitutional Appears: Non-toxic, No Acute Distress - Head Exam Head Exam: ATRAUMATIC, NORMAL INSPECTION, NORMOCEPHALIC - Eye Exam Eye Exam: EOMI, PERRL. absent: Scleral icterus Pupil Exam: NORMAL ACCOMODATION, PERRL - ENT Exam ENT Exam: Mucous Membranes Moist, Normal Exam - Neck Exam Neck Exam: Normal Inspection - Respiratory Exam Respiratory Exam: Clear to Ausculation Bilateral, NORMAL BREATHING PATTERN - Cardiovascular Exam Cardiovascular Exam: REGULAR RHYTHM, +S1, +S2. absent: Murmur - GI/Abdominal Exam GI & Abdominal Exam: Soft, Normal Bowel Sounds. absent: Distended, Firm, Guarding, Tenderness - Extremities Exam Extremities Exam: Full ROM, Normal Capillary Refill, Normal Inspection. absent : Joint Swelling, Pedal Edema - Back Exam Back Exam: NORMAL INSPECTION - Neurological Exam Neurological Exam: Alert, Awake, CN II-XII Intact, Normal Gait, Oriented x3 - Psychiatric Exam Psychiatric exam: Normal Affect, Normal Mood - Skin Skin Exam: Dry, Intact, Normal Color, Warm Assessment and Plan - Assessment and Plan (Free Text) Assessment: Plan: 51 F with history of HTN, non compliant with medications at home, sickle cell trait, glaucoma, marijuana use, former alcohol abuser who presented with hypertensive emergency and found to have dehydration, hyponatremia, hypokalemia , elevated troponin, CHF due to systolic dysfunction (EF 35-40%), acute kidney injury, sepsis secondary to UTI and PRES syndrome. 1. Hypertensive Emergency MRI Abdomen w/o contrast: No adrenal mass Endocrinology consult, Dr. Zambrano Re-Consult Neuro for re-evaluation of PRES, Dr. Rhonda Anne ECHO: LV normal size, mild concentric LVH, mild-mod impaired systolic function EF35-40, mild-mod hypokinesis apical anterior wall, mild mitral regurg, trace aortic regurg, mild tricuspid regurg Renal US: Medical renal disease, 1.6 cm simple cyst on upper pole of r kidney MRI Brain: extensive signal abnormality in brainstem and basal ganglia bilaterally, particularly thalami, suspicious for edema. Extensive white matter signal abnormality in cerebral hemispheres bilaterally. Uncertain etiology, could be hypertensive/infectious/inflammatory encephalopathy extensive demyelinating disease, toxic insult, or underlying metabolic abnormality CT head: extensive hypodensity in the periventricular white matter, sheyla, and cerebellar white matter. Could represent vasogenic edema related to HTN or chronic microvascular disease. CT chest: mild cardiomegaly, very mild emphysematous changes in lung apices bilaterally CT abd/pelvos: Right ovarian cyst Carotid duplex: bilateral 20-39% stenoses of proximal ICA, anterograde flow in both vertebral arteries (see full report). Urine metanephrines elevated, suspicious for Pheochromocytoma Aldactone 50 mg PO daily Norvasc 10 mg PO daily Hydralazine 50 mg PO Q6H Clonidine 0.3 mg PO Q8H Isosorbide Mononitrate 120 mg PO daily Torsemide 10 mg PO BID Cardura 2 mg PO HS Coreg 25 mg PO BID Nicardipine drip stopped 09/24 Ophthlamology consult, Dr. Bae, help appreciated 2. Chest Pain NORMA: no evidence of dissection or aortic root dilatation CT chest/abd/pelvis: unremarkable (see full report) ECHO: LV normal size, mild concentric LVH, mild-mod impaired systolic function EF35-40, mild-mod hypokinesis apical anterior wall, mild mitral regurg, trace aortic regurg, mild tricuspid regurg Carotid duplex: bilateral 20-39% stenoses of proximal ICA, anterograde flow in both vertebral arteries (see full report). ASA 81 mg PO daily Nephro consult, Dr. Mcgarry, help appreciated Cardio consult, Dr. Carson, help appreciated Cardiac enzymes 09/13-0.20-->0.28-->1.98-->1.43-->2.43-->2.24-->0.54-->09/21-0.21 f/u daily labs BNP 91994 3. ESTEFANI Bun/Cr: 59/3.7-> 52/3.6 Renal US: Medical renal disease, 1.6 cm simple cyst on upper pole of r kidney ( see full report). Nephrology consult, Dr. Rosen, help appreciated Maintain sys 150-160 and bolanos <110 continue oral anti-hypertensives Urine metanephrines elevated, suspicious for Pheochromocytoma 4. Ovarian cyst CT abd/pelvis revealed 3.5 x 5 cm R ovarian cyst PRODUCT SAFETY SPECIALIST consult, Dr. Meeks, help appreciated 5. Glaucoma Tropicamide 1% 1 drop OU 6. Abnormal LFTs: resolved GI consult, Dr. Moran, help appreciated Surgery consulted, Dr. Zamarripa, help appreciated Abdominal US: fatty infiltration of the liver, gallbladder sludge without cholelithiasis, nonspecific thickening of gallbladder wall [see full report] HIDA scan: Normal ABXR: constipation 7. Adjustment disorder with Anxiety and Depression Psych consult, Dr. Levin, help appreciated Klonopin 0.75 mg PO HS 8. Prophylactic measures Pepcid 20 mg PO daily Heart Healthy Diet DIspo: Possible DC tomorrow SERAFIN Mitchell <Patsy Mitchell - Last Filed: 09/27/16 16:42> Objective - Vital Signs/Intake and Output Vital Signs (last 24 hours): Temp Pulse Resp BP Pulse Ox 98 F 65 20 181/102 H 99 09/27/16 08:52 09/27/16 09:14 09/27/16 08:52 09/27/16 09:14 09/27/16 08:52 Intake and Output: 09/27/16 09/27/16 06:59 18:59 Intake Total 700 Balance 700 - Medications Medications: Current Medications Acetaminophen (Tylenol 325mg Tab) 650 mg PO Q4H PRN PRN Reason: headache Last Admin: 09/27/16 08:23 Dose: 650 mg Amlodipine Besylate (Norvasc) 10 mg PO DAILY [facility] Last Admin: 09/27/16 09:14 Dose: 10 mg Aspirin (Ecotrin) 81 mg PO DAILY [facility] Last Admin: 09/27/16 09:13 Dose: 81 mg Carvedilol (Coreg) 25 mg PO BID [facility] Last Admin: 09/27/16 09:12 Dose: 25 mg Clonazepam (Klonopin) 1 mg PO HS [facility] PRN Reason: Protocol Clonazepam (Klonopin) 0.5 mg PO DAILY [facility] PRN Reason: Protocol Clonidine HCl (Catapres) 0.3 mg PO Q8 [facility] Last Admin: 09/27/16 05:47 Dose: 0.3 mg Docusate Sodium (Colace) 100 mg PO DAILY [facility] Last Admin: 09/27/16 09:12 Dose: 100 mg Doxazosin Mesylate (Cardura) 4 mg PO HS [facility] Last Admin: 09/26/16 22:17 Dose: 4 mg Hydralazine HCl (Apresoline) 50 mg PO Q6 [facility] Last Admin: 09/27/16 05:46 Dose: 50 mg Nicardipine HCl (Cardene Iv Premix) 200 mls @ 50 mls/hr IV .Q4H PRN; Protocol; 5 MG/HR PRN Reason: TITRATE PER MD ORDER Last Titration: 09/24/16 14:49 Dose: 0 mg/hr Isosorbide Mononitrate (Imdur) 120 mg PO DAILY [facility] Last Admin: 09/27/16 09:33 Dose: 120 mg Multi-Ingredient Cream (Hydrocerin Cream) 1 ea TOP BID PRN PRN Reason: Dry nasal passages Ondansetron HCl (Zofran Inj) 4 mg IVP Q8H PRN PRN Reason: Nausea/Vomiting Last Admin: 09/19/16 03:52 Dose: 4 mg Pantoprazole Sodium (Protonix Ec Tab) 40 mg PO ACB [facility] Last Admin: 09/27/16 08:23 Dose: 40 mg Polyethylene Glycol (Miralax) 17 gm PO BID [facility] Last Admin: 09/27/16 09:14 Dose: 17 gm Senna/Docusate Sodium (Senokot S 50 Mg-8.6 Mg) 1 tab PO DAILY [facility] Last Admin: 09/27/16 09:15 Dose: 1 tab Sodium Chloride ([place] Nasal [place]) 0 ml NS BID [facility] Last Admin: 09/26/16 17:03 Dose: 1 spr Spironolactone (Aldactone) 50 mg PO DAILY [facility] Last Admin: 09/27/16 09:11 Dose: 50 mg Torsemide (Demadex) 10 mg PO BID [facility] Last Admin: 09/27/16 09:33 Dose: 10 mg - Labs Labs: 09/27/16 06:15 09/27/16 06:15 PT 11.7 Seconds (9.9-11.8) 09/19/16 11:50 INR 1.08 (0.93-1.08) 09/19/16 11:50 APTT 26.4 Seconds (23.7-30.8) 09/13/16 10:30 Attending/Attestation - Attestation I have personally seen and examined this patient.: Yes I have fully participated in the care of the patient.: Yes I have reviewed all pertinent clinical information, including history, physical exam and plan: Yes Notes (Text): I have seen and examined the patient with the resident. Agree with the above note with the following additions/ exceptions: Briefly this is 51 year old female with history of HTN, non compliant with medications at home, sickle cell trait, glaucoma, marijuana use, former alcohol abuser, OTC motrin use for headache on regular basis who presented with hypertensive emergency and found to have dehydration, hyponatremia, hypokalemia, elevated troponin, CHF due to systolic dysfunction (EF 35-40%), acute kidney injury, sepsis secondary to EColi UTI s/p treatment, chronic cholecystitis and PRES syndrome. Last night patient got downgraded from ICU. Denies any complaints today. Patient is requesting to be discharged today. Explained to the patient that her antihypertensive meds needs to be adjusted today. Still has acute on chronic kidney disease which is stable. Her hypertension has improved. Currently on aldactone, hydralazine, doxazosin, catapress, coreg, torsemide, imdur and norvasc. Discussed with material controller. Plan to increase doxazosin. Pheochromocytoma is strongly suspected however MRI of adrenals were negative. Patient need MIBG scan as an outpatient. Upon discharge patient will follow up with Dr Evita Swann, Dr Juan Manuel Diallo and Dr Mcgarry. Dr Patsy Mitchell.
--- NOTE | 2016-09-27 15:47 | PN ---
DATE: 09/27/2016 SUBJECTIVE: Shortly, the patient is a 51-year-old female, history of multiple medic al issues, status post systemic inflammatory response syndrome, probably secondary to hypertensive ur gency associated with posterior reversible encephalopathy syndrome and acute renal failure. The chandan ent also is status post sepsis, urinary tract infection with Escherichia coli, multiple medical probl ems. Please see medical notes for more detailed information. The patient was seen by psychiatry phong liu for evaluation for anxiety disorder. The patient was seen by Dr. Levin yesterday. The patient was started on Klonopin. The patient was seen by this assembly instructions writer today for followup. The patient presented to be alert. The patient's family is next to the patient's bed. The patient presented to have acce ptable personal hygiene. Fair eye contact. The patient reported that she is not depressed. The jessica n problem is anxiety. The patient reported that she tolerates medication well. No side effects were observed or reported. The patient denied hearing voices, denied seeing things, denied paranoid idea tion, does not present to be psychotic. VITAL SIGNS: Stable. Blood pressure is still elevated at 181/102, pulse is 55, respirations 20, oxy gen saturation is 99. MEDICATIONS: Reviewed. Tylenol, Norvasc, aspirin, Coreg, Klonopin 0.125 mg in the morning time and 0.725 mg at the nighttime, Catapres 0.3 mg q. 8 hours, Colace, Cardura, hydralazine, Imdur, Zofran, P rotonix, MiraLax, Holli, [place] spray nasal, Aldactone and torsemide. LABORATORY DATA: Reviewed. Most recent was from today: Hemoglobin 10.4, hematocrit 29.0, platelet count 15.7. BUN and creatinine 52 and 3.6, AST 62 and ALT is 46. MENTAL STATUS EXAMINATION: The patient appears to be alert and oriented, intermittent eye contact, w anted to be interviewed in front of her daughter and her family. Mood described "I'm not depressed." Affect was constricted, reactive, mood congruent. Thought process seems to be coherent and goal di rected. Thought content: The patient denied visual, auditory, or tactile hallucinations. Denied pa ranoid ideations. The patient denied thoughts of harming herself or others, denied intent or plan. The patient was feeling offended on the question if she ever wanted to harm herself in the past. Ins ight and judgment are fair. Impulses are well controlled. IMPRESSION: Rule out adjustment disorder with anxious mood. Rule out generalized anxiety disorder. The patient has multiple medical issues. Please see medical team notes for more detailed informatio n. PLAN: This assembly instructions writer increased the dose of Klonopin to 0.5 mg in the morning time and 1 mg at the night time. The patient was educated about risks, benefits and alternatives of the medications. The patie nt does not want to be followed up with outpatient psychiatrist, but will educate patient about thera py. The patient verbalized understanding. If the patient wants to be discharged tomorrow, there is no objection over that. There is no psychosis, no agitation, but anxiety is better controlled. Delicia burks you have any questions, give me a call back. Adrienne Maya MD cc: [id number] TT: 09/27/2016 15:46:49 Confirmation # [id number] Dictation # [id number] an
--- NOTE | 2016-09-27 21:49 | PN ---
DATE: 09/27/2016 The patient is in bed in no acute distress, nontoxic. No fevers and chills. PHYSICAL EXAMINATION: VITAL SIGNS: Temperature is 98, blood pressure is 150/70, respiratory rate of 16. HEENT: Unremarkable. NECK: Supple. LUNGS: Have decreased breath sounds. HEART: Normal S1, S2. ABDOMEN: Soft. LABORATORY DATA: Reveals a white count of 5.7, hemoglobin 10, platelets of 260. Chemistries reveal the BUN of 52, creatinine is 3.6. Urinalysis is ____. Microbiology is noted. ASSESSMENT AND PLAN: This is a 51-year-old female with systemic inflammatory response syndrome, prob ably secondary to hypertensive urgency, associated with posterior reversible encephalopathy syndrome, PRES syndrome, acute renal failure and currently off of antibiotics, afebrile. We will follow with you. The patient is at risk for developing nosocomial infections. Kobe Goyal MD cc: [id number] TT: 09/27/2016 21:49:22 Confirmation # [id number] Dictation # [id number] melanie
[2016-09-28 06:12] VITALS: PULSE 65
[2016-09-28 06:37] LABS: ADD MANUAL DIFF? NO; BASO # 0.03 K/mm3 (0.0-2.0); BASO % 0.4 % (0.0-3.0); EOS # 0.1 (0.0-0.7); EOS % 1.7 % (1.5-5.0); GRAN # 5.19 (1.4-6.5); GRAN % 74.5 % (50.0-68.0); HEMATOCRIT 31.6 % (36.0-48.0); LYMPH # 1.2 (1.2-3.4); LYMPH % 16.8 % (22.0-35.0); MEAN CELL VOLUME 86.6 fL (80.0-105.0); MEAN CORPUSCULAR HEMOGLOBIN 29.9 pg (25.0-35.0); MEAN CORPUSCULAR HGB CONC 34.5 g/dl (31.0-37.0); MEAN PLATELET VOLUME 11.7 fl (7.0-11.0); MONO # 0.5 (0.1-0.6); MONO % 6.6 % (1.0-6.0); PLATELET COUNT 257 10^3/uL (120.0-450.0); RED CELL DISTRIBUTION WIDTH 15.4 % (11.5-14.5)
[2016-09-28 06:56] LABS: ALB/GLOB RATIO 0.9 (1.1-1.8); BILIRUBIN,TOTAL 0.3 mg/dL (0.2-1.3); CALCIUM 8.1 mg/dL (8.4-10.5); MAGNESIUM 2.1 mg/dL (1.7-2.2); PHOSPHOROUS 4.7 mg/dL (2.5-4.5); POTASSIUM 3.9 mmol/L (3.6-5.0); TOTAL PROTEIN 6.9 g/dL (5.8-8.3)
--- NOTE | 2016-09-28 08:30 | PN ---
DATE: 09/27/2016 A 51-year-old female with a history of uncontrolled hypertension, admitted with hypertensive emergenc y, acute renal failure and PRES syndrome. The patient today feels well. Denies any more epigastric/ low sternal pain, denies any shortness of breath. PHYSICAL EXAMINATION: VITAL SIGNS: This morning, blood pressure 181/102, heart rate 65, respirations 20, O2 sat 99% on debra m air. GENERAL: No distress, able to speak coherently in full sentences. HEENT: Moist mucous membranes. No scleral icterus. CHEST: Clear to auscultation bilaterally. No rales, no rhonchi, no wheezes. HEART: S1, S2 positive. NECK: Elevated JVD. ABDOMEN: Soft, nontender, nondistended. EXTREMITIES: No leg edema. LABORATORY DATA: This morning, CBC: WBC 5.7, hemoglobin 10.4, hematocrit 29.9, platelets 260. Chem panel: Sodium 135, potassium 3.6, chloride 98, bicarb 29, BUN 52, creatinine 3.6, glucose 99, phosp horus 4.5, albumin 3.1. ASSESSMENT: 1. Acute renal failure, acute kidney injury on chronic kidney disease. Relatively stable renal func tion recently, likely close to baseline. Needs close outpatient followup to prepare for dialysis and transplantation. Discussed with patient. 2. Posterior reversible encephalopathy syndrome per MRI findings and clinical presentation. Keep di astolic blood pressure below 110. 3. Hypertensive emergency. Blood pressure overall improved; however, still with periods of marked b lood pressure elevation during the day. Doxazosin increased to 4 mg last night. Will increase frequ ency of Aldactone to 50 mg b.i.d. Continue rest of meds. 4. Malignant hypertension. The patient with biochemical and clinical evidence of pheochromocytoma. MRI of the abdomen done yesterday to assess for any adrenal mass was negative for any lesion. The p atient will need a nuclear study to look for a paraortic ganglioma, can be done as outpatient. Will discuss again with endocrine service to set up procedure. 5. Congestive heart failure with systolic dysfunction, currently patient appears relatively euvolemi c. Continue beta blockers, diuretics. 6. Chronic kidney disease, mineral bone disease. PTH is elevated. Will check vitamin D25 hydroxy l evels and supplement as needed. Shane Rosen MD cc: [id number] TT: 09/27/2016 20:28:09 Confirmation # [id number] Dictation # [id number] mn
[2016-09-28] MEDS: POLYETHYLENE GLYCOL 3350 17 GM/Dose PACKET PO SCH ×2 (08:49→14:16)
[2016-09-28] MEDS: Pantoprazole 40 mg EC Tab PO SCH (08:50)
[2016-09-28] MEDS: Docusate-Senna 50 mg-8.6 mg Tab PO SCH ×2 (08:50→10:00)
[2016-09-28 09:58] VITALS: RESP 19; TEMP 98.1; O2SAT 99
[2016-09-28 12:46] VITALS: BP 168/97
--- NOTE | 2016-09-28 13:07 | CP.PCM.PN ---
Subjective - Date & Time of Evaluation Date of Evaluation: 09/28/16 Time of Evaluation: 12:45 - Subjective Subjective: Patient has orders for removal of Picc line. Objective - Vital Signs/Intake and Output Vital Signs (last 24 hours): Temp Pulse Resp BP Pulse Ox 98.1 F 65 19 168/97 H 99 09/28/16 06:00 09/28/16 12:45 09/28/16 06:00 09/28/16 12:45 09/28/16 06:00 Intake and Output: 09/28/16 09/28/16 06:59 18:59 Intake Total 1080 Output Total 0 Balance 1080 - Medications Medications: Current Medications Acetaminophen (Tylenol 325mg Tab) 650 mg PO Q4H PRN PRN Reason: headache Last Admin: 09/28/16 04:47 Dose: 650 mg Amlodipine Besylate (Norvasc) 10 mg PO DAILY [facility] Last Admin: 09/28/16 08:49 Dose: 10 mg Aspirin (Ecotrin) 81 mg PO DAILY [facility] Last Admin: 09/28/16 08:48 Dose: 81 mg Carvedilol (Coreg) 25 mg PO BID [facility] Last Admin: 09/28/16 08:47 Dose: 25 mg Clonazepam (Klonopin) 0.5 mg PO DAILY [facility] PRN Reason: Protocol Clonazepam (Klonopin) 1 mg PO HS [facility] PRN Reason: Protocol Clonidine HCl (Catapres) 0.3 mg PO Q8 [facility] Last Admin: 09/28/16 06:00 Dose: 0.3 mg Docusate Sodium (Colace) 100 mg PO DAILY [facility] Last Admin: 09/28/16 08:47 Dose: 100 mg Doxazosin Mesylate (Cardura) 6 mg PO HS [facility] Hydralazine HCl (Apresoline) 50 mg PO Q6 [facility] Last Admin: 09/28/16 12:45 Dose: 50 mg Nicardipine HCl (Cardene Iv Premix) 200 mls @ 50 mls/hr IV .Q4H PRN; Protocol; 5 MG/HR PRN Reason: TITRATE PER MD ORDER Last Titration: 09/24/16 14:49 Dose: 0 mg/hr Isosorbide Mononitrate (Imdur) 120 mg PO DAILY [facility] Last Admin: 09/28/16 08:48 Dose: 120 mg Multi-Ingredient Cream (Hydrocerin Cream) 1 ea TOP BID PRN PRN Reason: Dry nasal passages Ondansetron HCl (Zofran Inj) 4 mg IVP Q8H PRN PRN Reason: Nausea/Vomiting Last Admin: 09/19/16 03:52 Dose: 4 mg Pantoprazole Sodium (Protonix Ec Tab) 40 mg PO ACB [facility] Last Admin: 09/28/16 08:50 Dose: 40 mg Polyethylene Glycol (Miralax) 17 gm PO BID [facility] Last Admin: 09/28/16 08:49 Dose: 17 gm Senna/Docusate Sodium (Senokot S 50 Mg-8.6 Mg) 1 tab PO DAILY [facility] Last Admin: 09/28/16 08:50 Dose: 1 tab Sodium Chloride ([place] Nasal [place]) 0 ml NS BID [facility] Last Admin: 09/28/16 08:50 Dose: 2 spr Spironolactone (Aldactone) 50 mg PO BID [facility] Last Admin: 09/27/16 18:54 Dose: 50 mg Torsemide (Demadex) 10 mg PO BID [facility] Last Admin: 09/28/16 08:48 Dose: 10 mg - Labs Labs: 09/28/16 05:00 09/28/16 06:10 PT 11.7 Seconds (9.9-11.8) 09/19/16 11:50 INR 1.08 (0.93-1.08) 09/19/16 11:50 APTT 26.4 Seconds (23.7-30.8) 09/13/16 10:30 - Constitutional Appears: No Acute Distress Assessment and Plan - Assessment and Plan (Free Text) Assessment: Pt is for removal of Picc line. Plan: Picc line removed using aseptic precautions. Pressure dressing applied.
--- NOTE | 2016-09-28 13:43 | CP.PCM.DIS ---
<Bere Pardo - Last Filed: 09/30/16 23:11> Provider - Provider Date of Admission: 09/13/16 11:46 Attending physician: Patsy Mitchell MD Primary care physician: Evita Swann MD Time Spent in preparation of Discharge (in minutes): 45 Diagnosis - Discharge Diagnosis (1) Hypertensive emergency Status: Acute (2) Malignant hypertension Status: Acute (3) Chest pain Status: Acute (4) Dyspnea Status: Acute (5) Sickle cell trait Status: Acute Hospital Course - Lab Results Lab Results: Micro Results 09/15/16 19:20 Blood-Venous Blood Culture - Final NO GROWTH AFTER 5 DAYS 09/15/16 19:20 Blood-Venous Gram Stain - Final TEST NOT PERFORMED 09/15/16 19:00 Blood-Venous Blood Culture - Final NO GROWTH AFTER 5 DAYS 09/15/16 19:00 Blood-Venous Gram Stain - Final TEST NOT PERFORMED 09/14/16 04:09 Blood Blood Culture - Final NO GROWTH AFTER 5 DAYS 09/14/16 04:09 Blood Gram Stain - Final TEST NOT PERFORMED 09/14/16 03:45 Blood S.aureus & Coag-Neg Staph PNA FISH - Final 09/14/16 03:45 Blood Blood Culture - Final Coagulase Neg Staphylococcus 09/14/16 03:45 Blood Gram Stain - Final 09/15/16 11:27 Urine,Cano Urine Culture - Final Escherichia Coli 09/13/16 13:45 Naris MRSA Culture (Admit) - Final MRSA NOT DETECTED Most Recent Lab Values WBC 7.0 10^3/ul (4.5-11.0) D 09/28/16 05:00 RBC 3.65 10^6/uL (3.5-6.1) 09/28/16 05:00 Hgb 10.9 gm/dL (12.0-16.0) L 09/28/16 05:00 Hct 31.6 % (36.0-48.0) L 09/28/16 05:00 MCV 86.6 fL (80.0-105.0) 09/28/16 05:00 MCH 29.9 pg (25.0-35.0) 09/28/16 05:00 MCHC 34.5 g/dl (31.0-37.0) 09/28/16 05:00 RDW 15.4 % (11.5-14.5) H 09/28/16 05:00 Plt Count 257 10^3/uL (120.0-450.0) 09/28/16 05:00 MPV 11.7 fl (7.0-11.0) H 09/28/16 05:00 Gran % 74.5 % (50.0-68.0) H 09/28/16 05:00 Lymph % (Auto) 16.8 % (22.0-35.0) L 09/28/16 05:00 [place] % (Auto) 6.6 % (1.0-6.0) H 09/28/16 05:00 Eos % (Auto) 1.7 % (1.5-5.0) 09/28/16 05:00 Baso % (Auto) 0.4 % (0.0-3.0) 09/28/16 05:00 Gran # 5.19 (1.4-6.5) 09/28/16 05:00 Lymph # 1.2 (1.2-3.4) 09/28/16 05:00 [place] # 0.5 (0.1-0.6) 09/28/16 05:00 Eos # 0.1 (0.0-0.7) 09/28/16 05:00 Baso # 0.03 K/mm3 (0.0-2.0) 09/28/16 05:00 Neutrophils % (Manual) 73 % (50.0-70.0) H 09/24/16 06:00 Band Neutrophils % 2 % (0-2) 09/24/16 06:00 Lymphocytes % (Manual) 11 % (22.0-35.0) L 09/24/16 06:00 Monocytes % (Manual) 12 % (1.0-6.0) H 09/24/16 06:00 Eosinophils % (Manual) 2 % (0.0-3.0) 09/24/16 06:00 Platelet Evaluation Normal (NORMAL) 09/24/16 06:00 Hypochromasia Slight 09/24/16 06:00 Anisocytosis (manual) Slight 09/24/16 06:00 Haptoglobin <15 mg/dL (43-212) L 09/13/16 19:51 PT 11.7 Seconds (9.9-11.8) 09/19/16 11:50 INR 1.08 (0.93-1.08) 09/19/16 11:50 APTT 26.4 Seconds (23.7-30.8) 09/13/16 10:30 Sodium 137 mmol/L (132-148) 09/28/16 06:10 Potassium 3.9 mmol/L (3.6-5.0) 09/28/16 06:10 Chloride 97 mmol/L (95-110) 09/28/16 06:10 Carbon Dioxide 30 mmol/L (21-33) 09/28/16 06:10 Anion Gap 14 (10-20) 09/28/16 06:10 BUN 55 mg/dL (7-21) H 09/28/16 06:10 Creatinine 3.9 mg/dL (0.5-1.4) H 09/28/16 06:10 Est GFR ( Amer) 15 09/28/16 06:10 Est GFR (Non-Af Amer) 12 09/28/16 06:10 POC Glucose (mg/dL) 94 mg/dL (65-110) 09/19/16 10:14 Random Glucose 94 mg/dL (70-110) 09/28/16 06:10 Hemoglobin A1c 4.2 % (4.2-6.5) 09/13/16 19:51 Calcium 8.1 mg/dL (8.4-10.5) L 09/28/16 06:10 Phosphorus 4.7 mg/dL (2.5-4.5) H 09/28/16 06:10 Magnesium 2.1 mg/dL (1.7-2.2) 09/28/16 06:10 Iron 37 ug/dL (45-180) L 09/14/16 10:00 TIBC 341 ug/dL (265-497) 09/14/16 10:00 % Saturation 11 % (20-55) L 09/14/16 10:00 Ferritin 54.2 ng/mL 09/14/16 06:00 Total Bilirubin 0.3 mg/dL (0.2-1.3) 09/28/16 06:10 AST 27 U/L (15-39) 09/28/16 06:10 ALT 50 U/L (7-56) 09/28/16 06:10 Alkaline Phosphatase 141 U/L (38-133) H 09/28/16 06:10 Lactate Dehydrogenase 1121 U/L (333-699) H 09/14/16 03:00 Total Creatine Kinase 148 U/L (35-230) 09/14/16 03:00 Troponin I 0.21 ng/mL H* D 09/21/16 07:30 NT-Pro-B Natriuret Pep 51914 pg/mL (0-450) H 09/13/16 10:30 Total Protein 6.9 g/dL (5.8-8.3) 09/28/16 06:10 Albumin 3.3 g/dL (3.0-4.8) 09/28/16 06:10 Globulin 3.6 gm/dL 09/28/16 06:10 Albumin/Globulin Ratio 0.9 (1.1-1.8) L 09/28/16 06:10 Triglycerides 112 mg/dL (35-160) 09/13/16 10:30 Cholesterol 274 mg/dL (130-200) H 09/13/16 10:30 LDL Cholesterol Direct 106 mg/dL (0-129) 09/13/16 10:30 HDL Cholesterol 131 mg/dL (29-60) H 09/13/16 10:30 Lipase 134 U/L (23-300) 09/21/16 11:23 Renin 19.76 ng/mL/h (0.25-5.82) H 09/13/16 14:14 Aldosterone 16 ng/dL (()) 09/13/16 14:14 Aldosterone/Renin Ratio 0.8 Ratio (0.9-28.9) L 09/13/16 14:14 Vitamin B12 926 pg/mL (239-931) 09/14/16 06:00 25-OH Vitamin D Total < 12.8 NG/ML (30.0-100.0) L 09/28/16 06:10 Folate > 20.0 ng/mL 09/14/16 06:00 Procalcitonin 0.95 NG/ML (0.19-0.49) H 09/15/16 19:20 TSH 3rd Generation 3.80 mIU/mL (0.46-4.68) 09/24/16 06:00 Beta HCG, Quant < 2.39 mIU/mL (0-6.15) 09/13/16 10:30 PTH Intact Whole Molec 136 pg/mL (14-64) H 09/15/16 06:00 Cortisol AM Sample 18.5 ug/dL (4.46-22.7) 09/24/16 06:00 ACTH 15 pg/mL (6-50) 09/24/16 06:00 Plasma Metanephrine 80 pg/mL (<=57) H 09/24/16 06:00 Plasma Normetanephrine 41 pg/mL (<=148) 09/24/16 06:00 Plas Total Metaneph 121 pg/mL (<=205) 09/24/16 06:00 Urine Color Yellow (YELLOW) 09/14/16 23:20 Urine Appearance Cloudy (CLEAR) 09/14/16 23:20 Urine pH 6.5 (4.7-8.0) 09/14/16 23:20 Ur Specific [place] 1.015 (1.005-1.035) 09/14/16 23:20 Urine Protein 100 mg/dL (<30 mg/dL) H 09/14/16 23:20 Urine Glucose (UA) Negative mg/dL (NEGATIVE) 09/14/16 23:20 Urine Ketones Negative mg/dL (NEGATIVE) 09/14/16 23:20 Urine Blood Large (NEGATIVE) H 09/14/16 23:20 Urine Nitrate Negative (NEGATIVE) 09/14/16 23:20 Urine Bilirubin Negative (NEGATIVE) 09/14/16 23:20 Urine Urobilinogen 0.2 E.U./dL (<1 E.U./dL) 09/14/16 23:20 Ur Leukocyte Esterase Large [place]ela/uL (NEGATIVE) H 09/14/16 23:20 Urine RBC 2 - 5 /hpf (0-2) 09/14/16 23:20 Urine WBC Tntc /hpf (0-6) 09/14/16 23:20 Ur Epithelial Cells 0 - 2 /hpf (0-5) 09/14/16 23:20 Urine Bacteria Many (NEG) 09/14/16 23:20 Urine Osmolality 318 mosm/kg (50-645) 09/20/16 10:50 Ur Random Creatinine 57 mg/dL 09/20/16 10:50 Ur Random Sodium 19 meq/L 09/20/16 10:50 Ur Random Urea Nitrogn 482 mg/dL 09/14/16 01:00 Urine Total Volume 2000 mL (()) 09/20/16 12:20 Ur 24 Hour Volume 2000 mL/24 h (()) 09/20/16 12:20 Ur Epinephrine 24 Hr see note (()) 09/20/16 12:20 U Norepinephrine 24 Hr 15 mcg/24 h (15-100) 09/20/16 12:20 Urine Metanephrine 452 mcg/24 h (58-203) H 09/20/16 12:20 U Normetanephrine 783 mcg/24 h (88-649) H 09/20/16 12:20 U Tot Metanephrine 24h 1235 mcg/24 h (182-739) H 09/20/16 12:20 Ur Dopamine 24 Hr 46 mcg/24 h (52-480) L 09/20/16 12:20 Urine Opiates Screen Positive (NEGATIVE) H 09/20/16 10:30 Urine Methadone Screen Negative (NEGATIVE) 09/20/16 10:30 Ur Barbiturates Screen Negative (NEGATIVE) 09/20/16 10:30 Ur Phencyclidine Scrn Negative (NEGATIVE) 09/20/16 10:30 Ur Amphetamines Screen Negative (NEGATIVE) 09/20/16 10:30 U Benzodiazepines Scrn Negative (NEGATIVE) 09/20/16 10:30 U Oth Cocaine Metabols Negative (NEGATIVE) 09/20/16 10:30 U Cannabinoids Screen Positive (NEGATIVE) H 09/20/16 10:30 MONA Screen Negative (Negative) 09/19/16 11:50 MONA Titer TEST NOT PERFORMED 09/19/16 11:50 MONA Titer 2 TEST NOT PERFORMED 09/19/16 11:50 MONA Pattern TEST NOT PERFORMED 09/19/16 11:50 MONA Pattern 2 TEST NOT PERFORMED 09/19/16 11:50 ANCA Screen Negative (NEGATIVE) 09/19/16 11:50 c-ANCA Titer TNP 09/19/16 11:50 Proteinase 3 (PR3) <1.0 AI (<1.0) 09/19/16 11:50 p-ANCA Titer TNP 09/19/16 11:50 Atypical p-ANCA Titer TNP 09/19/16 11:50 Myeloperoxidase Ab <1.0 AI (<1.0) 09/19/16 11:50 Glomerular Base Mem IgG <1.0 AI (<1.0) 09/19/16 11:50 Hepatitis A IgM Ab Negative (NEGATIVE) 09/18/16 06:45 Hep Bs Antigen Negative (NEGATIVE) 09/18/16 06:45 Hep B Core IgM Ab Negative (NEGATIVE) 09/18/16 06:45 Hepatitis C Antibody Negative (NEGATIVE) 09/18/16 06:45 Blood Type A POSITIVE 09/18/16 14:45 Blood Type Confirm A POSITIVE 09/18/16 15:20 Antibody Screen Negative 09/18/16 14:45 Crossmatch See Detail 09/18/16 14:45 BBK History Checked No verified bt 09/18/16 14:45 - Hospital Course Hospital Course: This is a 51F with PMH of HTN, sickle cell trait, glaucoma, tobacco abuse, ETOH abuse, and cataracts who presented to the ED for 4 weeks of chest pain, SOB, dizziness, and blurry vision in her left eye. Also complained of abdominal pain. She was found to be in a hypertensive emergency with BP of 300/160. CT of abdomen and pelvis ruled out aortic dissection. CT of the head showed possible vasogenic edema from hypertension vs microvascular disease. Troponin was elevated. Patient was admitted to the ICU and started on a nicardipine drip, and over the course of her hospitalization neurology, nephrology, endocrinology , general surgery, cardiology, gastroenterology, ophthalmology, psychiatry, and ID were consulted. CT of the chest, ECHO, renal US, Brain MRI, carotid duplex, and urine metanephrines were part of the work up for this patient. Patient was found to have elevated metanephrines but no sign of a pheochromocytoma on CT Patient's BP eventually decreased and stabilized and she was transferred to telemetry. Eventually all patient's symptoms improved to a level where she was deemed safe for discharge with po medication, repeat serum metanephrines outpatiently, and close follow up with endocrinology, cardiology, nephrology, and her primary medical doctor. The plan was discussed with the patient, who was extremely eager to leave. She expressed understanding and agreement with the plan and was discharged to home For full hospital course, please refer to the whole chart. Discharge Exam - Head Exam Head Exam: ATRAUMATIC, NORMOCEPHALIC - Eye Exam Eye Exam: EOMI, Normal appearance. absent: Conjunctival injection, Scleral icterus - ENT Exam ENT Exam: Mucous Membranes Moist - Respiratory Exam Respiratory Exam: NORMAL BREATHING PATTERN. absent: Accessory Muscle Use, Respiratory Distress - Cardiovascular Exam Cardiovascular Exam: RRR, +S1, +S2 - GI/Abdominal Exam GI & Abdominal Exam: Soft. absent: Distended, Tenderness - Extremities Exam Additional comments: non-tender, pedal pulses present, - Back Exam Back exam: NORMAL INSPECTION - Neurological Exam Neurological exam: Alert, Oriented x3 - Psychiatric Exam Psychiatric exam: Agitated, Normal Affect - Skin Skin Exam: Dry, Intact, Normal Color, Warm Discharge Plan - Discharge Medications Prescriptions: Spironolactone [Aldactone] 50 mg PO BID #60 tab hydrALAZINE [Apresoline] 50 mg PO Q6 30 Days Doxazosin [Cardura] 6 mg PO HS 30 Days Docusate [Colace] 100 mg PO DAILY 30 Days Carvedilol [Coreg] 3.125 mg PO BID #60 tab Torsemide [Demadex] 10 mg PO BID #30 tab Isosorbide Mononitrate [Imdur] 120 mg PO DAILY #30 tab Polyethylene Glycol 3350 [Miralax] 17 gm PO BID #30 packet amLODIPine [Norvasc] 10 mg PO DAILY #30 tab Famotidine [Pepcid] 20 mg PO DAILY 30 Days Docusate Sodium/Sennosides A [Senokot S 50 MG-8.6 MG] 1 tab PO DAILY 30 Days Cholecalciferol [Vitamin D] 1,000 iu PO DAILY 30 Days - Follow Up Plan Condition: CRITICAL Disposition: HOME/ ROUTINE Instructions: Acute Kidney Injury (DC), Renal Failure Diet (DC), Renal Failure Diet (GEN), Hypertension (DC) Additional Instructions: 1. Follow up with Dr. Swann in the office within 3 days 2. Follow up with Dr. Mcgarry the kidney doctor at his office, call within 3 days. Will need a repeat blood metanephrine level drawn as prescribed by Dr. Mcgarry 3. Follow up with Dr. Zambrano, the b2b sales professional at her office, call within 3 days 4. Take all prescribed medications as instructed on this discharge. Do not restart the medications you have at home unless you were given instructions to at discharge. Follow up with Dr. Swann for further instructions 5. Begin a low salt, renal diet 6. Follow up with opthalmology for retinal problems 7. Follow up at [facility] Return to the ED if your symptoms return or worsen Referrals: Imani Zambrano MD [Medical Doctor] - Evita Swann MD [Primary Care Provider] - Israel Mcgarry MD [Staff Provider] - <Patsy Mitchell - Last Filed: 10/01/16 16:28> Provider - Provider Date of Admission: 09/13/16 11:46 Attending physician: Patsy Mitchell MD Primary care physician: Evita Swann MD Hospital Course - Lab Results Lab Results: Micro Results 09/15/16 19:20 Blood-Venous Blood Culture - Final NO GROWTH AFTER 5 DAYS 09/15/16 19:20 Blood-Venous Gram Stain - Final TEST NOT PERFORMED 09/15/16 19:00 Blood-Venous Blood Culture - Final NO GROWTH AFTER 5 DAYS 09/15/16 19:00 Blood-Venous Gram Stain - Final TEST NOT PERFORMED 09/14/16 04:09 Blood Blood Culture - Final NO GROWTH AFTER 5 DAYS 09/14/16 04:09 Blood Gram Stain - Final TEST NOT PERFORMED 09/14/16 03:45 Blood S.aureus & Coag-Neg Staph PNA FISH - Final 09/14/16 03:45 Blood Blood Culture - Final Coagulase Neg Staphylococcus 09/14/16 03:45 Blood Gram Stain - Final 09/15/16 11:27 Urine,Cano Urine Culture - Final Escherichia Coli 09/13/16 13:45 Naris MRSA Culture (Admit) - Final MRSA NOT DETECTED Most Recent Lab Values WBC 7.0 10^3/ul (4.5-11.0) D 09/28/16 05:00 RBC 3.65 10^6/uL (3.5-6.1) 09/28/16 05:00 Hgb 10.9 gm/dL (12.0-16.0) L 09/28/16 05:00 Hct 31.6 % (36.0-48.0) L 09/28/16 05:00 MCV 86.6 fL (80.0-105.0) 09/28/16 05:00 MCH 29.9 pg (25.0-35.0) 09/28/16 05:00 MCHC 34.5 g/dl (31.0-37.0) 09/28/16 05:00 RDW 15.4 % (11.5-14.5) H 09/28/16 05:00 Plt Count 257 10^3/uL (120.0-450.0) 09/28/16 05:00 MPV 11.7 fl (7.0-11.0) H 09/28/16 05:00 Gran % 74.5 % (50.0-68.0) H 09/28/16 05:00 Lymph % (Auto) 16.8 % (22.0-35.0) L 09/28/16 05:00 [place] % (Auto) 6.6 % (1.0-6.0) H 09/28/16 05:00 Eos % (Auto) 1.7 % (1.5-5.0) 09/28/16 05:00 Baso % (Auto) 0.4 % (0.0-3.0) 09/28/16 05:00 Gran # 5.19 (1.4-6.5) 09/28/16 05:00 Lymph # 1.2 (1.2-3.4) 09/28/16 05:00 [place] # 0.5 (0.1-0.6) 09/28/16 05:00 Eos # 0.1 (0.0-0.7) 09/28/16 05:00 Baso # 0.03 K/mm3 (0.0-2.0) 09/28/16 05:00 Neutrophils % (Manual) 73 % (50.0-70.0) H 09/24/16 06:00 Band Neutrophils % 2 % (0-2) 09/24/16 06:00 Lymphocytes % (Manual) 11 % (22.0-35.0) L 09/24/16 06:00 Monocytes % (Manual) 12 % (1.0-6.0) H 09/24/16 06:00 Eosinophils % (Manual) 2 % (0.0-3.0) 09/24/16 06:00 Platelet Evaluation Normal (NORMAL) 09/24/16 06:00 Hypochromasia Slight 09/24/16 06:00 Anisocytosis (manual) Slight 09/24/16 06:00 Haptoglobin <15 mg/dL (43-212) L 09/13/16 19:51 PT 11.7 Seconds (9.9-11.8) 09/19/16 11:50 INR 1.08 (0.93-1.08) 09/19/16 11:50 APTT 26.4 Seconds (23.7-30.8) 09/13/16 10:30 Sodium 137 mmol/L (132-148) 09/28/16 06:10 Potassium 3.9 mmol/L (3.6-5.0) 09/28/16 06:10 Chloride 97 mmol/L (95-110) 09/28/16 06:10 Carbon Dioxide 30 mmol/L (21-33) 09/28/16 06:10 Anion Gap 14 (10-20) 09/28/16 06:10 BUN 55 mg/dL (7-21) H 09/28/16 06:10 Creatinine 3.9 mg/dL (0.5-1.4) H 09/28/16 06:10 Est GFR ( Amer) 15 09/28/16 06:10 Est GFR (Non-Af Amer) 12 09/28/16 06:10 POC Glucose (mg/dL) 94 mg/dL (65-110) 09/19/16 10:14 Random Glucose 94 mg/dL (70-110) 09/28/16 06:10 Hemoglobin A1c 4.2 % (4.2-6.5) 09/13/16 19:51 Calcium 8.1 mg/dL (8.4-10.5) L 09/28/16 06:10 Phosphorus 4.7 mg/dL (2.5-4.5) H 09/28/16 06:10 Magnesium 2.1 mg/dL (1.7-2.2) 09/28/16 06:10 Iron 37 ug/dL (45-180) L 09/14/16 10:00 TIBC 341 ug/dL (265-497) 09/14/16 10:00 % Saturation 11 % (20-55) L 09/14/16 10:00 Ferritin 54.2 ng/mL 09/14/16 06:00 Total Bilirubin 0.3 mg/dL (0.2-1.3) 09/28/16 06:10 AST 27 U/L (15-39) 09/28/16 06:10 ALT 50 U/L (7-56) 09/28/16 06:10 Alkaline Phosphatase 141 U/L (38-133) H 09/28/16 06:10 Lactate Dehydrogenase 1121 U/L (333-699) H 09/14/16 03:00 Total Creatine Kinase 148 U/L (35-230) 09/14/16 03:00 Troponin I 0.21 ng/mL H* D 09/21/16 07:30 NT-Pro-B Natriuret Pep 96543 pg/mL (0-450) H 09/13/16 10:30 Total Protein 6.9 g/dL (5.8-8.3) 09/28/16 06:10 Albumin 3.3 g/dL (3.0-4.8) 09/28/16 06:10 Globulin 3.6 gm/dL 09/28/16 06:10 Albumin/Globulin Ratio 0.9 (1.1-1.8) L 09/28/16 06:10 Triglycerides 112 mg/dL (35-160) 09/13/16 10:30 Cholesterol 274 mg/dL (130-200) H 09/13/16 10:30 LDL Cholesterol Direct 106 mg/dL (0-129) 09/13/16 10:30 HDL Cholesterol 131 mg/dL (29-60) H 09/13/16 10:30 Lipase 134 U/L (23-300) 09/21/16 11:23 Renin 2.66 ng/mL/h (0.25-5.82) 09/24/16 06:00 Aldosterone 16 ng/dL (()) 09/24/16 06:00 Aldosterone/Renin Ratio 6.0 Ratio (0.9-28.9) 09/24/16 06:00 Vitamin B12 926 pg/mL (239-931) 09/14/16 06:00 25-OH Vitamin D Total < 12.8 NG/ML (30.0-100.0) L 09/28/16 06:10 Folate > 20.0 ng/mL 09/14/16 06:00 Procalcitonin 0.95 NG/ML (0.19-0.49) H 09/15/16 19:20 TSH 3rd Generation 3.80 mIU/mL (0.46-4.68) 09/24/16 06:00 Beta HCG, Quant < 2.39 mIU/mL (0-6.15) 09/13/16 10:30 PTH Intact Whole Molec 136 pg/mL (14-64) H 09/15/16 06:00 Cortisol AM Sample 18.5 ug/dL (4.46-22.7) 09/24/16 06:00 ACTH 15 pg/mL (6-50) 09/24/16 06:00 Plasma Metanephrine TNP 09/28/16 06:10 Plasma Normetanephrine TNP 09/28/16 06:10 Plas Total Metaneph TNP 09/28/16 06:10 Urine Color Yellow (YELLOW) 09/14/16 23:20 Urine Appearance Cloudy (CLEAR) 09/14/16 23:20 Urine pH 6.5 (4.7-8.0) 09/14/16 23:20 Ur Specific [place] 1.015 (1.005-1.035) 09/14/16 23:20 Urine Protein 100 mg/dL (<30 mg/dL) H 09/14/16 23:20 Urine Glucose (UA) Negative mg/dL (NEGATIVE) 09/14/16 23:20 Urine Ketones Negative mg/dL (NEGATIVE) 09/14/16 23:20 Urine Blood Large (NEGATIVE) H 09/14/16 23:20 Urine Nitrate Negative (NEGATIVE) 09/14/16 23:20 Urine Bilirubin Negative (NEGATIVE) 09/14/16 23:20 Urine Urobilinogen 0.2 E.U./dL (<1 E.U./dL) 09/14/16 23:20 Ur Leukocyte Esterase Large Estela/uL (NEGATIVE) H 09/14/16 23:20 Urine RBC 2 - 5 /hpf (0-2) 09/14/16 23:20 Urine WBC Tntc /hpf (0-6) 09/14/16 23:20 Ur Epithelial Cells 0 - 2 /hpf (0-5) 09/14/16 23:20 Urine Bacteria Many (NEG) 09/14/16 23:20 Urine Osmolality 318 mosm/kg (50-645) 09/20/16 10:50 Ur Random Creatinine 57 mg/dL 09/20/16 10:50 Ur Random Sodium 19 meq/L 09/20/16 10:50 Ur Random Urea Nitrogn 482 mg/dL 09/14/16 01:00 Urine Total Volume 2000 mL (()) 09/20/16 12:20 Ur 24 Hour Volume 2000 mL/24 h (()) 09/20/16 12:20 Ur Epinephrine 24 Hr see note (()) 09/20/16 12:20 U Norepinephrine 24 Hr 15 mcg/24 h (15-100) 09/20/16 12:20 Urine Metanephrine 452 mcg/24 h (58-203) H 09/20/16 12:20 U Normetanephrine 783 mcg/24 h (88-649) H 09/20/16 12:20 U Tot Metanephrine 24h 1235 mcg/24 h (182-739) H 09/20/16 12:20 Ur Dopamine 24 Hr 46 mcg/24 h (52-480) L 09/20/16 12:20 Urine Opiates Screen Positive (NEGATIVE) H 09/20/16 10:30 Urine Methadone Screen Negative (NEGATIVE) 09/20/16 10:30 Ur Barbiturates Screen Negative (NEGATIVE) 09/20/16 10:30 Ur Phencyclidine Scrn Negative (NEGATIVE) 09/20/16 10:30 Ur Amphetamines Screen Negative (NEGATIVE) 09/20/16 10:30 U Benzodiazepines Scrn Negative (NEGATIVE) 09/20/16 10:30 U Oth Cocaine Metabols Negative (NEGATIVE) 09/20/16 10:30 U Cannabinoids Screen Positive (NEGATIVE) H 09/20/16 10:30 MONA Screen Negative (Negative) 09/19/16 11:50 MONA Titer TEST NOT PERFORMED 09/19/16 11:50 MONA Titer 2 TEST NOT PERFORMED 09/19/16 11:50 MONA Pattern TEST NOT PERFORMED 09/19/16 11:50 MONA Pattern 2 TEST NOT PERFORMED 09/19/16 11:50 ANCA Screen Negative (NEGATIVE) 09/19/16 11:50 c-ANCA Titer TNP 09/19/16 11:50 Proteinase 3 (PR3) <1.0 AI (<1.0) 09/19/16 11:50 p-ANCA Titer TNP 09/19/16 11:50 Atypical p-ANCA Titer TNP 09/19/16 11:50 Myeloperoxidase Ab <1.0 AI (<1.0) 09/19/16 11:50 Glomerular Base Mem IgG <1.0 AI (<1.0) 09/19/16 11:50 Hepatitis A IgM Ab Negative (NEGATIVE) 09/18/16 06:45 Hep Bs Antigen Negative (NEGATIVE) 09/18/16 06:45 Hep B Core IgM Ab Negative (NEGATIVE) 09/18/16 06:45 Hepatitis C Antibody Negative (NEGATIVE) 09/18/16 06:45 Blood Type A POSITIVE 09/18/16 14:45 Blood Type Confirm A POSITIVE 09/18/16 15:20 Antibody Screen Negative 09/18/16 14:45 Crossmatch See Detail 09/18/16 14:45 BBK History Checked No verified bt 09/18/16 14:45 Attending/Attestation - Attestation I have personally seen and examined this patient.: Yes I have fully participated in the care of the patient.: Yes I have reviewed all pertinent clinical information, including history, physical exam and plan: Yes Notes (Text): I have seen and examined the patient with the resident. Agree with the above note with the following additions/ exceptions: Briefly this is 51 year old female with history of HTN, non compliant with medications at home, sickle cell trait, glaucoma, marijuana use, former alcohol abuser, OTC motrin use for headache on regular basis who presented with hypertensive emergency and found to have dehydration, hyponatremia, hypokalemia, elevated troponin, CHF due to systolic dysfunction (EF 35-40%), acute kidney injury, sepsis secondary to EColi UTI s/p treatment, chronic cholecystitis and PRES syndrome. Patient feels well and denies any complaints today. Patient is requesting to be discharged today. Explained to the patient that he needs to follow up closely outpatient which she agrees. Still has acute on chronic kidney disease which is stable. Her hypertension has improved. Currently on aldactone, hydralazine, doxazosin, coreg, torsemide, imdur and norvasc. 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 Pheochromocytoma is strongly suspected however MRI of adrenals were negative. Patient need MIBG scan as an outpatient. Upon discharge patient will follow up with Dr Evita Swann, Dr Juan Manuel Diallo and Dr Mcgarry. Dr Patsy Mitchell.
--- NOTE | 2016-09-28 14:13 | PN ---
DATE: 09/28/2016 The patient is in bed, in no acute distress. PHYSICAL EXAMINATION: VITAL SIGNS: Temperature is 98, blood pressure is 160/90, respiratory rate of 19, heart rate of 65. HEENT: Unremarkable. NECK: Supple. LUNGS: Have decreased breath sounds. HEART: Normal S1, S2. ABDOMEN: Soft. LABORATORY DATA: Reveals a white count of 7, hemoglobin of 10, BUN of 55, creatinine of 3.9. The p atient did have a procalcitonin of 0.95. Review of the orders reveals the patient to be off of antib iotics. ASSESSMENT AND PLAN: A 51-year-old female with systemic inflammatory response syndrome, seen earlier this morning, admitted secondary to hypertensive urgency with posterior reversible encephalopathy sy ndrome, acute renal failure. Currently off of antibiotics, and for possible discharge today. Kobe Goyal MD cc: 350 TT: 09/28/2016 14:13:04 Confirmation # [id number] Dictation # [id number] mn
--- NOTE | 2016-09-28 19:01 | PN ---
DATE: 09/28/2016 The patient was followed up today for anxiety. The patient said that she does not want to continue o n Klonopin because she cannot see any difference with Klonopin and without Klonopin. The patient esthela d that "I am not crazy." The patient was educated about anxiety spectrum disorder and this real estate underwriter ad vised the patient to be followed up with outpatient psychiatrist. This real estate underwriter provided the phone num gunnar for [facility] as well as [facility] outpatient clinics. Th e patient expressed her interest to be followed up with outpatient psychiatrist if she needs to. Bes ides that, the patient denied being depressed, denied thoughts of harming herself or others, denied i ntent or plan. The patient is not psychotic. The patient denied hearing voices, denied seeing thing s, denied paranoid ideations. The patient's vital signs are stable. Blood pressure is mildly elevat ed 168/97, pulse is 65. MEDICATIONS: Reviewed. This real estate underwriter discussed the case with today. LABORATORIES: Reviewed. MENTAL STATUS EXAMINATION: The patient presented to be alert and oriented. Good personal hygiene. Fair eye contact. Speech was normal rate, tone, quality, and quantity. The patient seems to be susp icious and mildly guarded. The patient described her mood, "I am not crazy, I am fine." Affect was reactive, mood congruent. Thought process was coherent and goal directed. Thought content: The pat ient denied visual, auditory, tactile hallucinations. Denied paranoid ideation. The patient denied thoughts of harming herself or others, denied intent or plan. Insight and judgment are fair. Impuls es are well controlled. IMPRESSION: Rule out anxiety disorder due to general medical condition. Rule out adjustment disorde r with anxious mood. The patient has multiple medical issues. Please see medical team notes for mor e detailed information. PLAN: As this real estate underwriter mentioned above, the patient was provided with outpatient clinics. The patient denied feeling suicidal. Denied feeling homicidal. Denied feeling depressed. This real estate underwriter will sig n off from this case. The patient seems to be psychiatrically stable, but benefits from outpatient t herapy and med management. Should you have any questions, give me a call back. Adrienne Maya MD cc: [id number] TT: 09/28/2016 19:00:30 Confirmation # [id number] Dictation # [id number] mn
--- NOTE | 2016-09-28 23:10 | CP.PCM.PN ---
Subjective - Date & Time of Evaluation Date of Evaluation: 09/28/16 Time of Evaluation: 11:30 - Subjective Subjective: Patient denies any more "spells"; Objective - Vital Signs/Intake and Output Vital Signs (last 24 hours): Temp Pulse Resp BP Pulse Ox 98.1 F 65 19 168/97 H 99 09/28/16 06:00 09/28/16 14:12 09/28/16 06:00 09/28/16 14:12 09/28/16 06:00 Intake and Output: 09/28/16 09/29/16 18:59 06:59 Intake Total 900 Balance 900 - Labs Labs: 09/28/16 05:00 09/28/16 06:10 PT 11.7 Seconds (9.9-11.8) 09/19/16 11:50 INR 1.08 (0.93-1.08) 09/19/16 11:50 APTT 26.4 Seconds (23.7-30.8) 09/13/16 10:30 - Constitutional Appears: No Acute Distress Assessment and Plan (1) Acute kidney injury Assessment & Plan: Renal function relatively stable; will monitor closely; Status: Acute (2) Hypertensive emergency Assessment & Plan: BP much improved although will take time to get to goal; being discharged on extensive anti-htn regimen and needs to f/u closely with us in renal clinic; Status: Acute (3) Malignant hypertension Assessment & Plan: Pheo being suspected; will f/u in clinic, will seek outpatient referral to a center that does MIBG scan; Status: Acute (4) PRES (posterior reversible encephalopathy syndrome) Assessment & Plan: f/u witn neuro as outpatient; Status: Acute (5) CHF (congestive heart failure) Assessment & Plan: Symtpomatically improved, being discharged on diuretics; Status: Acute
--- NOTE | 2016-09-29 08:20 | PN ---
DATE: 09/28/2016 ROOM: 377 This is a 51-year-old female with ____ hypertension and ____ renal insufficiency ____ metabolic manag ement ____ multidrug hypertensive regimen to optimize the control of her extremely accelerated blood pressure ____. Her latest chemistry showed a BUN of ____, glucose 94 and creatinine ____. Her ____ metanephrine ___ _ metanephrines were elevated at the value of 795 but we ____ abdomen and pelvis did not show ____ gl and or ____. ____ also with elevated catecholamines ____ intercurrent physical stress of the markedly elevated and accelerated blood pressure readings. Her ____ and aldosterone levels ____ were also ____ expected _ ___ elevated range ____ for hypertensive urgency. So at this, there is no indication for any kind of endocrine intervention for now and would recommend ____ metabolic workup and management ____ hypertension ____. Imani Zambrano MD cc: [id number] TT: 09/28/2016 16:11:53 Confirmation # [id number] Dictation # [id number] mn
[2016-10-04 11:42] LABS: COLLECTION TIME 24 Hours
== END 2016-09-28 15:09 | disposition home or self-care (01) | DRG 280 ==
LOC: ED 09:51 → ERH 11:46 → CCU 13:41 → 2RNO 09-17 11:39 → CCU 09-19 11:10 → 3RSO 09-26 14:54
PROVIDERS: ADMIT Internal Medicine; ATTEND Hospitalist
PROC: 02HV33Z Insertion of Infusion Device into Superior Vena Cava, Percutaneous Approach (ICD-10-PCS; 2016-09-15)
PROC: B54NZZA Ultrasonography of Left Upper Extremity Veins, Guidance (ICD-10-PCS; 2016-09-15)
PROC: 30233N1 Transfusion of Nonautologous Red Blood Cells into Peripheral Vein, Percutaneous Approach (ICD-10-PCS; 2016-09-18)
PROC: B246ZZ4 Ultrasonography of Right and Left Heart, Transesophageal (ICD-10-PCS; principal; 2016-09-22 11:00)
DX: I16.1 Hypertensive emergency (principal); I21.4 Non-ST elevation (NSTEMI) myocardial infarction; I67.83 Posterior reversible encephalopathy syndrome; G93.6 Cerebral edema; A41.9 Sepsis, unspecified organism; R65.20 Severe sepsis without septic shock; N17.9 Acute kidney failure, unspecified; N18.4 Chronic kidney disease, stage 4 (severe); N39.0 Urinary tract infection, site not specified; I67.4 Hypertensive encephalopathy; K81.0 Acute cholecystitis; E87.1 Hypo-osmolality and hyponatremia; H33.22 Serous retinal detachment, left eye; I42.9 Cardiomyopathy, unspecified; I50.20 Unspecified systolic (congestive) heart failure; E87.3 Alkalosis; I13.0 Hypertensive heart and chronic kidney disease with heart failure and stage 1 through stage 4 chronic kidney disease, or unspecified chronic kidney disease; D50.9 Iron deficiency anemia, unspecified; D57.3 Sickle-cell trait; E87.6 Hypokalemia; E86.0 Dehydration; H54.42 Blindness, left eye, normal vision right eye; I08.3 Combined rheumatic disorders of mitral, aortic and tricuspid valves; H26.9 Unspecified cataract; H40.9 Unspecified glaucoma; F17.210 Nicotine dependence, cigarettes, uncomplicated; F12.10 Cannabis abuse, uncomplicated; E66.9 Obesity, unspecified; B96.20 Unspecified Escherichia coli [E. coli] as the cause of diseases classified elsewhere; F43.23 Adjustment disorder with mixed anxiety and depressed mood; H43.12 Vitreous hemorrhage, left eye; N83.201 Unspecified ovarian cyst, right side; K59.09 Other constipation; R04.0 Epistaxis; Z68.31 Body mass index [BMI] 31.0-31.9, adult; Z91.14 Patient's other noncompliance with medication regimen

== ENCOUNTER 2016-12-01 08:39 | Inpatient (IN) | payer BC ==
[2016-12-01 09:03] VITALS: BMI 26.6
[2016-12-01] MEDS ORDERED: Morphine 4 mg/ml ISec IVP STA ×2 (09:38→12:37)
[2016-12-01] MEDS ORDERED: Famotidine 20mg/50ml 20 MG/50 ML BAG IVPB STA (09:38)
--- NOTE | 2016-12-01 09:55 | ED PDOC ---
Arrival/HPI - General Chief Complaint: Dizziness/Lightheaded Time Seen by Provider: 12/01/16 09:13 Historian: Patient - History of Present Illness Narrative History of Present Illness (Text): 12/01/16 09:25 A 51 year old female, whose past medical history includes hypertension and stage IV renal failure, presents to the emergency department with multiple complaints. Patient comes in complaining of her "blood pressure acting up." Patient notes this morning she believes her her blood pressure dropped because she began to feel dizzy, seeing block spots, a right sided temporal headache and "not right, like blood was not pumping to my heart." Dizziness was the sensation of the room spinning initially but currently is more of a lightheadedness. Patient denies any fever. Patient also complains of diffuse abdominal pain that started yesterday. She notes some difficulty tolerating PO but denies any nausea, vomiting or other complaints. Patient says she has had both symptoms previously for which she was admitted to the hospital. PMD: Dr. Laureano Time/Duration: 24 hours Symptom Onset: Sudden Symptom Course: Other Quality: Other Activities at Onset: Rest Context: Home Past Medical History - Provider Review Nursing Documentation Reviewed: Yes - Infectious Disease Hx of Infectious Diseases: None - Cardiac Hx Cardiac Disorders: Yes Hx Hypertension: Yes - HEENT Hx Blind: Yes Hx Cataracts: Yes - Hematological/Oncological Hx Blood Transfusions: No Hx Blood Transfusion Reaction: No - Musculoskeletal/Rheumatological Hx Falls: No - Psychiatric Hx Depression: No Hx Emotional Abuse: No Hx Physical Abuse: No Hx Substance Use: Yes - Surgical History Hx Section: Yes Hx Eye Surgery: Yes (right eye) - Anesthesia Hx Anesthesia: Yes Hx Anesthesia Reactions: No Hx Malignant Hyperthermia: No - Suicidal Assessment Feels Threatened In Home Enviroment: No Family/Social History - Physician Review Nursing Documentation Reviewed: Yes Family/Social History: Unknown Family HX Smoking Status: Former Smoker Hx Alcohol Use: Yes Hx Substance Use: Yes Hx Substance Use Treatment: No Allergies/Home Meds Allergies/Adverse Reactions: Allergies No Known Allergies Allergy (Verified 12/01/16 09:03) Home Medications: Home Meds Medication Instructions Recorded Confirmed Carvedilol [Coreg] 12.5 mg PO BID 12/01/16 12/01/16 Losartan Potassium 100 mg PO DAILY 12/01/16 12/01/16 Phenazopyridine HCl [Azo Standard] 97.5 mg PO BID 12/01/16 12/01/16 cloNIDine [Catapres] 0.3 mg PO TID 12/01/16 12/01/16 Review of Systems - Physician Review All systems were reviewed & negative as marked: Yes - Review of Systems Constitutional: absent: Fevers Cardiovascular: absent: Chest Pain Gastrointestinal: Abdominal Pain, Appetite Changes. absent: Nausea, Vomiting Neurological: Headache, Dizziness, Other (lightheaded) Physical Exam Vital Signs Reviewed: Yes Vital Signs Temp Pulse Resp BP Pulse Ox 12/01/16 13:30 98.2 F 74 16 150/88 98 12/01/16 12:25 200/98 H 12/01/16 12:05 72 18 222/99 H 98 12/01/16 11:43 54 L 18 180/94 H 100 12/01/16 08:54 97.9 F 62 18 173/106 H 98 Temperature: Afebrile Blood Pressure: Hypertensive Pulse: Regular Respiratory Rate: Normal Appearance: Positive for: Well-Appearing, Non-Toxic, Comfortable Pain Distress: None Mental Status: Positive for: Alert and Oriented X 3 Finger Stick Blood Glucose: 110 - Systems Exam Head: Present: Atraumatic, Normocephalic Pupils: Present: PERRL Extroacular Muscles: Present: EOMI Conjunctiva: Present: Normal Mouth: Present: Moist Mucous Membranes Neck: Present: Normal Range of Motion Respiratory/Chest: Present: Clear to Auscultation, Good Air Exchange. No: Respiratory Distress, Accessory Muscle Use Cardiovascular: Present: Regular Rate and Rhythm, Normal S1, S2. No: Murmurs Abdomen: Present: Tenderness (diffuse tenderness with plapation but greater in the upper quadrants), Normal Bowel Sounds, Guarding. No: Distention, Peritoneal Signs, Rebound Back: Present: Normal Inspection Upper Extremity: Present: Normal Inspection. No: Cyanosis, Edema Lower Extremity: Present: Normal Inspection. No: Edema Neurological: Present: GCS=15, CN II-XII Intact, Speech Normal Skin: Present: Warm, Dry, Normal Color. No: Rashes Psychiatric: Present: Alert, Oriented x 3, Normal Insight, Normal Concentration Medical Decision Making ED Course and Treatment: 12/01/16 09:25 Impression: A 51 year old female with dizziness/lightheadedness and abdominal pain. Differential Diagnosis include but are not limited to: hypertensive emergency vs. gastrits vs. mass vs. diverticulitis Plan: -- EKG -- Abdomen/Pelvis CT -- Chest X-ray -- Aorta, UVC, Iliac Duplex Ultrasound -- Labs -- Urinalysis -- Morphine and Pepcid -- Reassess and disposition Prior Visits: Notes and results from previous visits were reviewed. The patient last presented to the emergency department on 09/13/16 for evaluation of nausea and vomiting. Progress Notes: EKG: Ordered, reviewed, and independently interpreted the EKG. Rate : 96 BPM Rhythm : NSR Interpretation : Premature Ventricular Complexes; Left Ventricular Hypertrophy, Nonspecific T wave changes Comparison : No change from previous EKG on 09/21/16 for comparison. 12/01/16 12:[address] Laureano, who is aware and agrees with the plan to place the patient in telemetry for observation for hypertension, abdominal pain and acute on chronic renal failure under her services. Second dose of Morphine given for abdominal pain. Hydralazine given for blood pressure control. I have discussed the results and plan with the patient, who expresses understanding. Patient given the opportunity to ask question, all questions were answered and there is agreement with the plan to be admitted to the hospital. 12/01/16 12:20 Chest X-ray: Creator : Moreno Tejada MD COMPARISON: 09/21/2016 FINDINGS: LUNGS: No active pulmonary disease. PLEURA: No significant pleural effusion identified, no pneumothorax apparent. CARDIOVASCULAR: Normal. OSSEOUS STRUCTURES: No significant abnormalities. VISUALIZED UPPER ABDOMEN: Normal. OTHER FINDINGS: None. IMPRESSION: No active disease. 12/01/16 12:33 Abdomen/Pelvis CT: Creator : Moreno Tejada MD COMPARISON: 09/21/2016 FINDINGS: LOWER THORAX: Unremarkable. LIVER: Unremarkable. No gross lesion or ductal dilatation. GALLBLADDER AND BILE DUCTS: Unremarkable. PANCREAS: Unremarkable. No gross lesion or ductal dilatation. SPLEEN: Unremarkable. ADRENALS: Unremarkable. No mass. KIDNEYS AND URETERS: Unremarkable. No hydronephrosis. No solid mass. VASCULATURE: Unremarkable. No aortic aneurysm. BOWEL: Unremarkable. No obstruction. No gross mural thickening. There is a moderate amount of fecal retention in the ascending and transverse colon APPENDIX: Unremarkable. Normal appendix. PERITONEUM: Unremarkable. No free fluid. No free air. LYMPH NODES: Unremarkable. No enlarged lymph nodes. BLADDER: Unremarkable. REPRODUCTIVE: Unremarkable. BONES: No acute fracture. OTHER FINDINGS: None. IMPRESSION: No acute intra-abdominal findings. Moderate constipation - Lab Interpretations Lab Results: 12/01/16 10:21 12/01/16 10:21 Lab Results 12/01/16 11:36: Urine Color Yellow, Urine Appearance Sl cloudy, Urine pH 6.0, Ur Specific [place] 1.020, Urine Protein 100 H, Urine Glucose (UA) Negative, Urine Ketones Negative, Urine Blood Negative, Urine Nitrate Positive H, Urine Bilirubin Negative, Urine Urobilinogen 1.0 H, Ur Leukocyte Esterase Moderate H, Urine RBC Negative, Urine WBC 10 - 15, Ur Epithelial Cells Many, Urine Bacteria Few 12/01/16 10:21: Sodium 135, Chloride 99, Potassium 3.5 L, Carbon Dioxide 21, Anion Gap 19, BUN 78 H, Creatinine 6.5 H, Est GFR ( Amer) 8, Est GFR (Non -Af Amer) 7, Random Glucose 112 H, Calcium 9.6, Total Bilirubin 0.6, AST 20, ALT 24, Alkaline Phosphatase 52, Lactate Dehydrogenase 367, Total Creatine Kinase 124, Troponin I 0.04 D, NT-Pro-B Natriuret Pep 9200 H, Total Protein 8.0 , Albumin 4.4, Globulin 3.6, Albumin/Globulin Ratio 1.2, Lipase 150 12/01/16 10:21: PT 10.7, INR 0.99, APTT 29.4 12/01/16 10:21: WBC 7.2, RBC 4.08, Hgb 12.2, Hct 34.2 L, MCV 83.8, MCH 29.9, MCHC 35.7, RDW 14.1, Plt Count 205, MPV 12.4 H, Gran % 65.5, Lymph % (Auto) 19.7 L, Humphreys % (Auto) 11.3 H, Eos % (Auto) 2.9, Baso % (Auto) 0.6, Gran # 4.68, Lymph # 1.4, Humphreys # 0.8 H, Eos # 0.2, Baso # 0.04 12/01/16 10:20: pO2 115 H, VBG pH 7.34, VBG pCO2 44.0, VBG HCO3 23.7, VBG Total CO2 25.1, VBG O2 Sat (Calc) 98.4 H, VBG Base Excess -2.2 L, VBG Potassium 3.6, Sodium 133.0, Chloride 105.0, Glucose 104, Lactate 0.9, FiO2 21.0, Venous Blood Potassium 3.6 I have reviewed the lab results: Yes - RAD Interpretation Radiology Orders: 12/01/16 09:37 ABD & PELVIS W/O PO OR IV CONT [CT] Stat CHEST PORTABLE [RAD] Stat 12/01/16 09:39 AORTA, IVC, ILIAC DUPLEX [US] Stat - Medication Orders Current Medication Orders: Hydralazine HCl (Apresoline) 10 mg IVP STAT ANNA Last Admin: 12/01/16 12:25 Dose: 10 mg Ondansetron HCl (Zofran Inj) 4 mg IVP Q4H PRN PRN Reason: Nausea/Vomiting Discontinued Medications Famotidine (Pepcid 20mg/50ml Premix) 20 mg in 50 mls @ 100 mls/hr IVPB STAT STA Stop: 12/01/16 10:07 Last Admin: 12/01/16 10:19 Dose: 100 mls/hr Ceftriaxone Sodium (Rocephin 1 Gram Ivpb) 1 gm in 100 mls @ 200 mls/hr IVPB STAT STA PRN Reason: Protocol Stop: 12/01/16 12:23 Last Admin: 12/01/16 12:28 Dose: 200 mls/hr Morphine Sulfate (Morphine) 4 mg IVP STAT STA Stop: 12/01/16 09:39 Last Admin: 12/01/16 10:18 Dose: 4 mg Morphine Sulfate (Morphine) 4 mg IVP STAT STA Stop: 12/01/16 12:38 Last Admin: 12/01/16 12:59 Dose: 4 mg Potassium Chloride (K-Dur 20 Meq Er Tab) 20 meq PO STAT STA Stop: 12/01/16 11:22 Last Admin: 12/01/16 11:54 Dose: 20 meq - Scribe Statement The provider has reviewed the documentation as recorded by the Ranjith Anders Provider Scribe Attestation: All medical record entries made by the Scribe were at my direction and personally dictated by me. I have reviewed the chart and agree that the record accurately reflects my personal performance of the history, physical exam, medical decision making, and the department course for this patient. I have also personally directed, reviewed, and agree with the discharge instructions and disposition. Disposition/Present on Arrival - Present on Arrival Any Indicators Present on Arrival: No History of DVT/PE: No History of Uncontrolled Diabetes: No Urinary Catheter: No History of Decub. Ulcer: No History Surgical Site Infection Following: None - Disposition Have Diagnosis and Disposition been Completed?: Yes Diagnosis: Abdominal pain, Acute kidney injury, Malignant hypertension Disposition: HOSPITALIZED Disposition Time: 12:08 Patient Plan: Admission, Observation Patient Problems: Current Active Problems Problem Status Onset Abdominal pain Acute Acute kidney injury Acute Malignant hypertension Acute Condition: FAIR
[2016-12-01 10:21] LABS: ADD MANUAL DIFF? NO
[2016-12-01 10:25] LABS: VENOUS BLOOD GAS BASE EXCESS -2.2 mmol/L (0.0-2.0); VENOUS BLOOD PH 7.34 (7.32-7.43)
[2016-12-01 10:36] LABS: INR 0.99 (0.93-1.08); PARTIAL THROMBOPLASTIN TIME 29.4 Seconds (23.7-30.8)
[2016-12-01 10:37] LABS: ALB/GLOB RATIO 1.2 (1.1-1.8); BILIRUBIN,TOTAL 0.6 mg/dL (0.2-1.3); CALCIUM 9.6 mg/dL (8.4-10.5); POTASSIUM 3.5 mmol/L (3.6-5.0)
[2016-12-01 10:47] LABS: TROPONIN I 0.04 ng/mL
[2016-12-01 10:55] LABS: BASO # 0.04 K/mm3 (0.0-2.0); BASO % 0.6 % (0.0-3.0); EOS # 0.2 (0.0-0.7); EOS % 2.9 % (1.5-5.0); GRAN # 4.68 (1.4-6.5); GRAN % 65.5 % (50.0-68.0); HEMATOCRIT 34.2 % (36.0-48.0); LYMPH # 1.4 (1.2-3.4); LYMPH % 19.7 % (22.0-35.0); MEAN CELL VOLUME 83.8 fL (80.0-105.0); MEAN CORPUSCULAR HEMOGLOBIN 29.9 pg (25.0-35.0); MEAN CORPUSCULAR HGB CONC 35.7 g/dl (31.0-37.0); MEAN PLATELET VOLUME 12.4 fl (7.0-11.0); MONO # 0.8 (0.1-0.6); MONO % 11.3 % (1.0-6.0); PLATELET COUNT 205 10^3/uL (120.0-450.0); RED CELL DISTRIBUTION WIDTH 14.1 % (11.5-14.5); WHITE BLOOD COUNT 7.2 10^3/ul (4.5-11.0)
--- NOTE | 2016-12-01 11:12 | CT ---
PROCEDURE: CT Abdomen and Pelvis without intravenous contrast HISTORY: abd pain COMPARISON: 09/21/2016 TECHNIQUE: Without oral or IV contrast. Contrast Dose: Radiation dose: Total exam DLP = 610 mGy-cm. This CT exam was performed using one or more of the following dose reduction techniques: Automated exposure control, adjustment of the mA and/or kV according to patient size, and/or use of iterative reconstruction technique. FINDINGS: LOWER THORAX: Unremarkable. LIVER: Unremarkable. No gross lesion or ductal dilatation. GALLBLADDER AND BILE DUCTS: Unremarkable. PANCREAS: Unremarkable. No gross lesion or ductal dilatation. SPLEEN: Unremarkable. ADRENALS: Unremarkable. No mass. KIDNEYS AND URETERS: Unremarkable. No hydronephrosis. No solid mass. VASCULATURE: Unremarkable. No aortic aneurysm. BOWEL: Unremarkable. No obstruction. No gross mural thickening. There is a moderate amount of fecal retention in the ascending and transverse colon APPENDIX: Unremarkable. Normal appendix. PERITONEUM: Unremarkable. No free fluid. No free air. LYMPH NODES: Unremarkable. No enlarged lymph nodes. BLADDER: Unremarkable. REPRODUCTIVE: Unremarkable. BONES: No acute fracture. OTHER FINDINGS: None. IMPRESSION: No acute intra-abdominal findings Moderate constipation
[2016-12-01] MEDS ORDERED: Potassium Chloride 20 mEq ER Tab PO STA (11:21)
[2016-12-01 11:43] LABS: URINE BILIRUBIN NEGATIVE (NEGATIVE); URINE BLOOD NEGATIVE (NEGATIVE); URINE GLUCOSE (UA) NEGATIVE (NEGATIVE); URINE KETONE NEGATIVE (NEGATIVE); URINE LEUKOCYTE ESTERASE MODERATE Leu/uL (NEGATIVE); URINE PROTEIN 100 mg/dL (<30 mg/dL)
[2016-12-01 11:44] LABS: URINE APPEARANCE SL CLOUDY (CLEAR); URINE COLOR YELLOW (YELLOW)
[2016-12-01 11:45] LABS: URINE BACTERIA FEW (NEG); URINE EPITHELIAL CELLS MANY /hpf (0-5); URINE RBC NEGATIVE /hpf (0-2)
[2016-12-01] MEDS ORDERED: cefTRIAXone 1 gm 1 GM/100 ML BAG IVPB STA (11:54)
--- NOTE | 2016-12-01 12:20 | RAD ---
HISTORY: abd pain COMPARISON: 09/21/2016 FINDINGS: LUNGS: No active pulmonary disease. PLEURA: No significant pleural effusion identified, no pneumothorax apparent. CARDIOVASCULAR: Normal. OSSEOUS STRUCTURES: No significant abnormalities. VISUALIZED UPPER ABDOMEN: Normal. OTHER FINDINGS: None. IMPRESSION: No active disease.
[2016-12-01] MEDS ORDERED: HYDROmorphone 0.5 mg/0.5 ml ISec IVP PRN (15:12)
[2016-12-01] MEDS ORDERED: Pneumococcal 23-Valent Vaccine IM ONE (17:12)
[2016-12-01] MEDS: Cefepime 1gm in NS 100ml 1 GM/100 ML BAG IVPB SCH ×2 (17:36→17:40)
[2016-12-01] MEDS ORDERED: PHENAZOPYRIDINE HCL 97.5 MG PO SCH (18:00)
--- NOTE | 2016-12-01 19:29 | US ---
PROCEDURE: 1. Duplex ultrasound of the abdominal aorta. HISTORY: Abdominal aortic aneurysm. PHYSICIAN(S): Charlie Donis MD. FINDINGS: There is significant diffuse atherosclerotic disease the visualized abdominal aorta for a 51-year-old. No sonographic evidence of an abdominal aortic aneurysm is appreciated. The visualized abdominal aorta measures 1.8 cm in greatest transverse dimension. Limited images of the common iliac arteries are normal in caliber. IMPRESSION: 1. No sonographic evidence of abdominal aortic aneurysm.
[2016-12-01] MEDS ORDERED: Sodium Chloride 0.9% 250 ML IV SCH (19:30)
[2016-12-01] MEDS ORDERED: POLYETHYLENE GLYCOL 3350 17 GM/Dose PACKET PO ONE (19:56)
[2016-12-01] MEDS ORDERED: Mineral Oil Enema 135 ml RC PRN (19:56)
[2016-12-01] MEDS: Sodium Chloride 0.9% 1,000 ML IV SCH (20:13)
--- NOTE | 2016-12-01 21:09 | CON ---
DATE: 12/01/2016 HISTORY OF PRESENT ILLNESS: A 51-year-old female with past medical history of uncontrolled hypertension, status post admission 2 months ago for hypertensive emergency and PRES syndrome, CKD stage IV/V, CHF with systolic dysfunction and malignant hypertension, admitted today for hypertensive emergency and acute renal failure. Nephrology is being consulted for the same. The patient reports being in her usual state of health until yesterday. She reports being compliant with all of her blood pressure medications including the recent increases in dose that were made at our office last week. Denies feeling lightheaded or dizzy subsequent to those changes; however, reports that since last night she has been feeling somewhat lightheaded, although she was able to go to work this morning. The patient also reports new onset of left- sided abdominal pain/left flank pain. Denies any dysuria. Denies any fevers, does report chills, but says that these are chronic. Also, reports that she has been urinating excessively since yesterday. The patient also reports being constipated, not having had a bowel movement in approximately 1 week and is not passing gas either. PAST MEDICAL HISTORY: As above. SOCIAL HISTORY: smoking history of 1 pack per week since 30 yrs. FAMILY HISTORY: Mother , ESRD on hemodialysis. REVIEW OF SYSTEMS: CONSTITUTIONAL: Appetite had been well. HEENT: No visual changes, chronic left eye blindness, no sore throat or runny nose. RESPIRATORY: No cough and no shortness of breath. CARDIOVASCULAR: Feels a slow heartbeat, otherwise no chest pain. GASTROINTESTINAL: As mentioned in HPI. GENITOURINARY: As per HPI. EXTREMITIES: No leg edema. MUSCULOSKELETAL: No joint pains. NEUROLOGIC: Reports headache. No numbness in feet. PSYCHIATRIC: Denies anxiety. PHYSICAL EXAMINATION: VITAL SIGNS: This evening blood pressure 200/80, heart rate 76, temperature 98.5 and O2 sat 100% on room air. GENERAL: No distress, conversing coherently in full sentences. HEENT: Moist mucous membranes. Nonicteric. NECK: No cervical adenopathy. RESPIRATORY: Lungs clear to auscultation bilaterally, no rales, no rhonchi and no wheezes. HEART: S1, S2 normal, no murmurs, no gallops and no rubs. Irregular rate and rhythm. GASTROINTESTINAL: Abdomen soft, mildly distended, epigastric and left-sided tenderness present. GENITOURINARY: Left flank tenderness. EYES PSYCHIATRIC: Normal mood. Normal affect. NEUROLOGIC: No numbness in feet. LABORATORY DATA TODAY: WBC 7.2, hemoglobin 12.0, hematocrit 34.2 and platelets 205. Chemistry panel: Sodium 135, potassium 3.5, chloride 99, bicarb 21, BUN 78, creatinine 6.5, glucose 112 and calcium is 9.6. BNP 9200. Albumin 4.4. VBG : pH 7.34 and pCO2 44. Urinalysis: Urine protein 100 mg/dL, nitrite positive, leukocyte esterase moderate, 10-15 WBC and few bacteria. ASSESSMENT AND PLAN: 1. Acute kidney injury on chronic kidney disease stage IV/V. Serum creatinine had been around 4.4 within the last couple of weeks, up to 6.5 today in the setting of having started losartan and with frequent urination and feeling of lightheadedness, likely represents prerenal etiology superimposed on underlying chronic kidney disease, despite elevated blood pressures, which is her norm. Will start gentle IV fluids at 75 mL per hour. Hold losartan. Checking urine electrolytes. 2. Hypertensive emergency - with worsening renal function in the setting of markedly uncontrolled high blood pressure; however, the patient actually tends to run with SBP in 200s and DBP in 130's as seen in our office several times and despite being on 6 antihypertensive medications including 2 diuretics. No need to aggressively control hypertension as is at high risk of further worsening of kidney injury. Will continue Coreg 12.5 mg b.i.d. Will change clonidine to clonidine patch 0.3 mg as patient is having some vomiting. Continue Norvasc 10 mg daily (just started yesterday, so will take time to have an effect), restart Cardura at 4 mg p.o. q12 hours (will hold if diastolic blood pressure less than 90. The patient had been on 8 mg b.i.d.). Will keep clonidine 0.3 mg p.o. q. 6 hours as p.r.n. Hold Aldactone for now as we are trying to volume replenish the patient. 3. Urinary tract infection - With suggestive symptoms despite only few bacteria seen on urinalysis, started on cefepime 1 gram q. 24 hours correctly for advanced renal insufficiency (patient already received ceftriaxone). 4. Constipation. Will give the patient MiraLAX and mineral oil enema as needed ; should not give phosphate-containing enema. 5. Congestive heart failure with systolic dysfunction. The patient with no signs of volume excess on exam. Continue to hold diuretics for now. 6. Chronic kidney disease, stage IV/V proteinuric kidney disease, likely worsened by malignant hypertension, relatively stable electrolyte and volume status. Will continue to monitor. 7. Proteinuria. 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 Will hold off on KALYAN inhibitor/ARB as patient does not have much leeway to cause any further decrease in GFR, which can be expected with these meds. Will continue Aldactone when more stable. 8. Anemia. Hemoglobin improved. Monitor. 9. Malignant hypertension. The patient has elevated urine and plasma metanephrines. Imaging of the abdomen has been unremarkable. We are in the process of referring patient to another center for outpatient MIBG scan. Shane Rosen MD cc: [id number] TT: 12/01/2016 21:08:42 Confirmation # [id number] Dictation # [id number] MTDD
--- NOTE | 2016-12-02 08:01 | HP ---
CHIEF COMPLAINT: Dizziness, lightheadedness. HISTORY OF PRESENT ILLNESS: The patient is a 51-year-old, my private patient, with past medical history of hypertension, stage IV renal failure, came to the Emergency Room with multiple complaints. According to the patient, she was working at her job, then her blood pressure went down. She believes that her blood pressure was dropped because she began feeling dizzy, seeing black spots, right-sided temporal headache and according to her, her blood pressure was not pumping to her heart. Dizziness was the sensation of the room spinning, initially, but currently changing into lightheadedness. No fever, no chills. The patient was seen in the ER by me in the presence of her 2 daughters. The patient has abdominal pain also. In ER, she was denying nausea, vomiting, but when she went on the floor, she was vomiting. Juan ordered. She refused that a couple of times. Discussion done with the patient's nurse, and then plan was to involve her daughters to offer her medication. The patient is seen by Dr. Rosen, front desk team member. PAST MEDICAL HISTORY: Hypertension, cardiac disorder, history of blindness, cataract, section, right eye surgery. FAMILY HISTORY: Father and mother noncontributory. HABITS: Former smoker, now quit. Alcohol yes. Substance abuse yes. ALLERGIES: The patient is not allergic with any medications. HOME MEDICATIONS: Coreg, losartan, clonidine. REVIEW OF SYSTEMS: The patient is seen and examined on the bedside in ER. Two daughters were sitting on the bedside also. The patient just came from ultrasound and CAT scan. Still feeling a little bit dizzy, abdominal pain. That moment, no nausea or vomiting. No hematuria or hematochezia. No swelling of the leg. No chest pain, no palpitation, no fever. PHYSICAL EXAMINATION: VITAL SIGNS: Temperature 98.2, pulse 74, respiratory rate 15, blood pressure 150/88. Maximum blood pressure she has in the ER was 222/99, pulse 100. HEENT: Head normocephalic, atraumatic. Eyes: PERRLA. Extraocular muscles intact. Conjunctivae clear. Nose patent. Mucous membranes moist. NECK: Supple. No carotid bruit, JVD or thyromegaly. CHEST: Bilaterally symmetrical. HEART: S1, S2 positive. LUNGS: Clear to auscultation. ABDOMEN: Soft. Bowel sounds positive. No organomegaly. EXTREMITIES: No edema, no cyanosis. NEUROLOGIC: The patient is awake, alert, moving all 4 extremities. No focal deficit. LABORATORY DATA: White blood cells 7.2, hemoglobin 12.2, hematocrit 31.2, and platelets 205. Sodium 135, potassium 3.5, BUN 17, creatinine 6.5, and glucose 112. ASSESSMENT AND PLAN: The patient is a 51-year-old lady with hypokalemia, replaced, renal insufficiency, hyperglycemia, acute kidney injury on chronic kidney disease stage IV/V. Serum creatinine has been around 4.4 within the last couple of weeks, up to 6.5 today in the setting of having started losartan with frequent urination and feeling of lightheadedness. Dr. Rosen started gentle IV hydration at 75 mL per hour. Hold losartan. Checking urine electrolytes. Hypertension emergency with worsening renal function in the setting of marked uncontrolled high blood pressure. However, the patient actually tended to run the systolic blood pressure in 200s and diastolic in 130s despite being on 6 antihypertensive medications, including 2 diuretics. The patient needs aggressively control of hypertension to prevent any further worsening of the kidney injury. According to Dr. Rosen, we will continue Coreg , clonidine patch, Norvasc, Cardura. Hold Aldactone for now. We are trying to volume replenish the patient. Urinary tract infection. The patient is started on cefepime. Infectious disease consult called. Constipation, given MiraLax and enema as needed. Congestive heart failure, systolic dysfunction, proteinuria, anemia, improving. Malignant hypertension. The patient has elevated urine and plasma normetanephrine. Images of the abdomen have been unremarkable. Dr. Rosen wants to send the patient for MIBG scan. Discussion done with the patient's both daughters. Aortic ultrasound done. No sonographic evidence of abdominal aortic aneurysm as per Dr. Charlie Donis. CAT scan of the abdomen and pelvis done. As per Dr. Moreno Rowland, no acute intraabdominal findings; moderate constipation. Gastrointestinal and deep venous thrombosis prophylaxis. Repeat labs. We will follow up. Karli Laureano MD cc: [id number] TT: 12/02/2016 08:00:20 tn MTDD
[2016-12-02 10:33] LABS: ADD MANUAL DIFF? NO
[2016-12-02 10:40] LABS: BASO # 0.05 K/mm3 (0.0-2.0); BASO % 0.7 % (0.0-3.0); EOS # 0.2 (0.0-0.7); EOS % 2.1 % (1.5-5.0); GRAN # 4.98 (1.4-6.5); GRAN % 66.1 % (50.0-68.0); HEMATOCRIT 34.2 % (36.0-48.0); LYMPH # 1.6 (1.2-3.4); LYMPH % 21.1 % (22.0-35.0); MEAN CELL VOLUME 83.8 fL (80.0-105.0); MEAN CORPUSCULAR HEMOGLOBIN 29.7 pg (25.0-35.0); MEAN CORPUSCULAR HGB CONC 35.4 g/dl (31.0-37.0); MEAN PLATELET VOLUME 11.8 fl (7.0-11.0); MONO # 0.8 (0.1-0.6); PLATELET COUNT 209 10^3/uL (120.0-450.0); RED CELL DISTRIBUTION WIDTH 14.1 % (11.5-14.5); WHITE BLOOD COUNT 7.5 10^3/ul (4.5-11.0)
[2016-12-02 10:46] LABS: ALB/GLOB RATIO 1.2 (1.1-1.8); BILIRUBIN,TOTAL 0.6 mg/dL (0.2-1.3); CALCIUM 9.6 mg/dL (8.4-10.5); MAGNESIUM 2.5 mg/dL (1.7-2.2); PHOSPHOROUS 4.6 mg/dL (2.5-4.5); POTASSIUM 3.6 mmol/L (3.6-5.0)
[2016-12-02 10:53] LABS: URINE BILIRUBIN NEGATIVE (NEGATIVE); URINE BLOOD NEGATIVE (NEGATIVE); URINE GLUCOSE (UA) NEGATIVE (NEGATIVE); URINE KETONE NEGATIVE (NEGATIVE); URINE LEUKOCYTE ESTERASE NEGATIVE Leu/uL (NEGATIVE); URINE PROTEIN 30 mg/dL (<30 mg/dL); URINE UROBILINOGEN 0.2 E.U./dL (<1 E.U./dL)
[2016-12-02 10:55] LABS: URINE APPEARANCE CLEAR (CLEAR); URINE COLOR YELLOW (YELLOW)
[2016-12-02 10:56] LABS: URINE RBC NEGATIVE /hpf (0-2)
[2016-12-02 10:57] LABS: URINE BACTERIA TRACE (NEG); URINE EPITHELIAL CELLS 0 - 2 /hpf (0-5); URINE WBC 0 - 2 /hpf (0-6)
--- NOTE | 2016-12-02 11:37 | CON ---
DATE: 12/02/2016 HISTORY OF PRESENT ILLNESS: The patient is in bed in no acute distress. The patient seen earlier in 270, bed 2. The patient is seen earlier this morning. The patient complaining of diffuse aches and pains. No nausea, vomiting at this time. She did have headaches and nausea and vomiting earlier. She did have frequency, but no dysuria. She does have occasional lower abdominal pain. No fevers an d no chills, no chest pain. PAST MEDICAL HISTORY: Significant for hypertension, PRES syndrome, acute kidney injury in the past, cataract, sickle cell trait, congestive heart failure. PAST SURGICAL HISTORY: Significant for and eye surgery. ALLERGIES: The patient has no known allergies. MEDICATIONS: At home reveals the patient to be on Catapres and Norvasc. PHYSICAL EXAMINATION: VITAL SIGNS: The patient is in bed with a temperature of 98, blood pressure is 150/90, respiratory r ate of 18, heart rate of 52. HEENT: Unremarkable. NECK: Supple. LUNGS: Have decreased breath sounds. HEART: Normal S1, S2. ABDOMEN: Soft, nontender. LABORATORY EXAMINATION: Reveals a white count of 7.2, hemoglobin of 12, BUN of 78, creatinine 6.5. BNP is 9200. Urinalysis is noted and 10-15 WBCs, few bacteria. Microbiology is pending. The patien t had a CAT scan of the abdomen and pelvis which revealed no acute findings, moderate constipation. Chest x-ray also was no active disease. The patient had ultrasound of the aorta, no evidence of abdo chucho aortic aneurysm. The Emergency Room chart is reviewed, Dr. Diego Castro. ASSESSMENT AND PLAN: A 51-year-old female with hypertension, PRES syndrome, acute kidney injury, cat aract, sickle cell trait, congestive heart failure, mild genitourinary symptoms of possible frequency and some pelvic discomfort currently on cefepime for possible urinary tract infection. We will chec k on the blood culture, urine culture and we will make further recommendations. The patient had hepa titis profile 2 months ago, which was negative, will also order an HIV test because of her age. Kobe Goyal MD cc: [id number] TT: 12/02/2016 11:37:06 Confirmation # [id number] Dictation # [id number] jn
[2016-12-02] MEDS: Nicardipine 20 MG/200 ML 20 MG/200 ML BAG IV PRN ×3 (13:00→21:20)
--- NOTE | 2016-12-02 14:15 | CP.PCM.CON ---
<Candi Reynolds - Last Filed: 12/02/16 14:47> History of Present Illness - History of Present Illness History of Present Illness: ICU Consult Note Reason for consult: Hypertensive urgency This is a 51Y F with PMH uncontrolled HTN, PRES syndrome, sickle cell trait, glaucoma, and CKD who was admitted for dizziness with n/v. As per patient, she was started on 2 new BP meds by primary (aldactone and losartan). She is also on multiple meds for BP. She felt as if her BP dropped too low and became dizzy. Patient was also found to have UTI and is on antibiotics. Today her BP was noted to be in 240s. At the time, patient denies headache, vision changes, numbness/tingling, CP, SOB. She was transferred to ICU for further monitoring. Of note, patient was recently admitted for similar circumstances. She was noted to have elevated urine metanephrines. She was supposed to have outpatient MIBG scan as well, which has not been done yet. PMH: uncontrolled HTN, PRES syndrome, sickle cell trait, glaucoma, and CKD PSH: All: NKDA SH: Former EtOH abuse, denies smoking, + marijuana on UDS FH: HTN, DM Review of Systems - Constitutional Constitutional: absent: Chills, Fever - EENT Eyes: absent: Blurred Vision, Change in Vision Nose/Mouth/Throat: absent: Sore Throat - Cardiovascular Cardiovascular: absent: Chest Pain, Leg Edema - Respiratory Respiratory: absent: Cough, Dyspnea - Gastrointestinal Gastrointestinal: Constipation. absent: Abdominal Pain, Cramping, Nausea, Vomiting - Genitourinary Genitourinary: absent: Dysuria, Hematuria, Pyuria - Musculoskeletal Musculoskeletal: absent: Myalgias, Numbness, Tingling - Integumentary Integumentary: absent: Change in Hair, New Lesions - Neurological Neurological: absent: Dizziness, Numbness, Headaches, Syncope, Tingling, Tremor , Vertigo, Weakness - Psychiatric Psychiatric: absent: Anxiety, Depression - Endocrine Endocrine: Cold Intolorance. absent: Change in Body Appearance Past Patient History - Infectious Disease Hx of Infectious Diseases: None - Past Medical History & Family History Past Medical History?: Yes - Past Social History Smoking Status: Former Smoker Drugs: Cannabis - CARDIAC Hx Cardiac Disorders: Yes Hx Hypertension: Yes - PULMONARY Hx Respiratory Disorders: Yes (SMOKED CIGARETTES QUIT.) - NEUROLOGICAL Hx Neurological Disorder: No - HEENT Hx HEENT Problems: Yes Hx Blind: Yes Hx Cataracts: Yes Hx Glaucoma: Yes Other/Comment: LEFT EYE SURGERY - RENAL Hx Chronic Kidney Disease: Yes Hx Renal Failure: Yes (STAGE 4 ARF) - ENDOCRINE/METABOLIC Hx Endocrine Disorders: Yes - HEMATOLOGICAL/ONCOLOGICAL Hx Blood Disorders: No (SICKLE CELL TRAIT) Hx Sickle Cell Disease: Yes - INTEGUMENTARY Hx Dermatological Problems: No - MUSCULOSKELETAL/RHEUMATOLOGICAL Hx Musculoskeletal Disorders: No Hx Falls: No - GASTROINTESTINAL Hx Gastrointestinal Disorders: Yes (CONSTIPATION) - GENITOURINARY/GYNECOLOGICAL Hx Genitourinary Disorders: Yes (C/S X 4) - PSYCHIATRIC Hx Psychophysiologic Disorder: Yes (SMOKED CIGARETTES,ETOH USE.H/O) Hx Depression: No Hx Emotional Abuse: No Hx Physical Abuse: No Hx Substance Use: No - SURGICAL HISTORY Hx Surgeries: Yes (CEASEREAN X 4,LEFT EYE SURGERY) - ANESTHESIA Hx Anesthesia: Yes Hx Anesthesia Reactions: No Hx Malignant Hyperthermia: No Meds Allergies/Adverse Reactions: Allergies Allergy/AdvReac Type Severity Reaction Status Date / Time No Known Allergies Allergy Verified 12/01/16 16:46 - Medications Medications: Current Medications Acetaminophen (Tylenol 325mg Tab) 650 mg PO Q4H PRN PRN Reason: headache Amlodipine Besylate (Norvasc) 10 mg PO DAILY [facility] Last Admin: 12/02/16 10:02 Dose: 10 mg Carvedilol (Coreg) 12.5 mg PO BID [facility] Last Admin: 12/02/16 10:00 Dose: 12.5 mg Cholecalciferol (Vitamin D) 1,000 iu PO DAILY [facility] Last Admin: 12/01/16 17:09 Dose: 1,000 iu Clonidine HCl (Catapres-Tts3 0.3 Mg/24 Hr) 1 patch TD Q7D@1000 [facility] Last Admin: 12/01/16 20:52 Dose: 1 patch Doxazosin Mesylate (Cardura) 4 mg PO Q12H [facility] Last Admin: 12/02/16 11:49 Dose: 4 mg Hydromorphone HCl (Dilaudid) 0.5 mg IVP Q6H PRN PRN Reason: Pain, severe (8-10) Last Admin: 12/01/16 15:27 Dose: 0.5 mg Cefepime HCl (Maxipime 1gm) 1 gm in 100 mls @ 100 mls/hr IVPB Q24H ANNA PRN Reason: Protocol Last Admin: 12/01/16 17:40 Dose: Not Given Sodium Chloride (Sodium Chloride 0.9%) 1,000 mls @ 75 mls/hr IV .[id number] [facility] Last Admin: 12/01/16 20:13 Dose: 75 mls/hr Nicardipine HCl (Cardene Iv Premix) 20 mg in 200 mls @ 50 mls/hr IV .Q4H PRN; Protocol; 5 MG/HR PRN Reason: TITRATE PER MD ORDER Last Admin: 12/02/16 13:00 Dose: 15 mg/hr, 150 mls/hr Minoxidil (Minoxidil) 5 mg PO BID [facility] Phenazopyridine Hcl [Azo Standard] 97.5 Mg 97.5 mg PO BID [facility] Last Admin: 12/01/16 17:18 Dose: Not Given Ondansetron HCl (Zofran Inj) 4 mg IVP Q4H PRN PRN Reason: Nausea/Vomiting Physical Exam - Constitutional Appears: No Acute Distress - Head Exam Head Exam: ATRAUMATIC, NORMAL INSPECTION, NORMOCEPHALIC - Eye Exam Eye Exam: Normal appearance, PERRL Pupil Exam: NORMAL ACCOMODATION, PERRL - ENT Exam ENT Exam: Mucous Membranes Moist - Neck Exam Neck exam: Positive for: Normal Inspection - Respiratory Exam Respiratory Exam: Clear to Auscultation Bilateral, NORMAL BREATHING PATTERN. absent: Rales, Rhonchi, Wheezes - Cardiovascular Exam Cardiovascular Exam: REGULAR RHYTHM, +S1, +S2. absent: Gallop, Rubs, Systolic Murmur - GI/Abdominal Exam GI & Abdominal Exam: Normal Bowel Sounds, Soft. absent: Guarding, Rebound, Tenderness - Extremities Exam Extremities exam: Positive for: normal inspection - Neurological Exam Neurological exam: Alert, CN II-XII Intact, Normal Gait, Oriented x3 - Psychiatric Exam Psychiatric exam: Normal Affect, Normal Mood - Skin Skin Exam: Dry, Intact, Normal Color, Warm Results - Vital Signs Recent Vital Signs: Last Vital Signs Temp 98.2 F 12/02/16 12:00 Pulse 69 12/02/16 13:00 Resp 16 12/02/16 12:00 BP 179/101 H 12/02/16 13:00 Pulse Ox 100 12/02/16 12:00 - Labs Result Diagrams: 12/02/16 10:31 12/02/16 10:31 Labs: Laboratory Results - last 24 hr 12/02/16 12/02/16 12/02/16 05:30 05:30 10:31 WBC 7.5 RBC 4.08 Hgb 12.1 Hct 34.2 L MCV 83.8 MCH 29.7 MCHC 35.4 RDW 14.1 Plt Count 209 MPV 11.8 H Gran % 66.1 Lymph % (Auto) 21.1 L Gregory % (Auto) 10.0 H Eos % (Auto) 2.1 Baso % (Auto) 0.7 Gran # 4.98 Lymph # 1.6 Gregory # 0.8 H Eos # 0.2 Baso # 0.05 Sodium Potassium Chloride Carbon Dioxide Anion Gap BUN Creatinine Est GFR ( Amer) Est GFR (Non-Af Amer) Random Glucose Calcium Phosphorus Magnesium Total Bilirubin AST ALT Alkaline Phosphatase Total Protein Albumin Globulin Albumin/Globulin Ratio Urine Color Yellow Urine Appearance Clear Urine pH 5.0 Ur Specific [place] 1.015 Urine Protein 30 H Urine Glucose (UA) Negative Urine Ketones Negative Urine Blood Negative Urine Nitrate Positive H Urine Bilirubin Negative Urine Urobilinogen 0.2 Ur Leukocyte Esterase Negative Urine RBC Negative Urine WBC 0 - 2 Ur Epithelial Cells 0 - 2 Urine Bacteria Trace Ur Random Creatinine 126 Ur Random Sodium 35 Ur Random Urea Nitrogn 622 12/02/16 10:31 WBC RBC Hgb Hct MCV MCH MCHC RDW Plt Count MPV Gran % Lymph % (Auto) Gregory % (Auto) Eos % (Auto) Baso % (Auto) Gran # Lymph # Gregory # Eos # Baso # Sodium 138 Potassium 3.6 Chloride 104 Carbon Dioxide 23 Anion Gap 15 BUN 73 H Creatinine 6.2 H Est GFR ( Amer) 9 Est GFR (Non-Af Amer) 7 Random Glucose 106 Calcium 9.6 Phosphorus 4.6 H Magnesium 2.5 H Total Bilirubin 0.6 AST 20 ALT 20 Alkaline Phosphatase 45 Total Protein 8.0 Albumin 4.3 Globulin 3.7 Albumin/Globulin Ratio 1.2 Urine Color Urine Appearance Urine pH Ur Specific [place] Urine Protein Urine Glucose (UA) Urine Ketones Urine Blood Urine Nitrate Urine Bilirubin Urine Urobilinogen Ur Leukocyte Esterase Urine RBC Urine WBC Ur Epithelial Cells Urine Bacteria Ur Random Creatinine Ur Random Sodium Ur Random Urea Nitrogn Assessment & Plan - Assessment and Plan (Free Text) Assessment: This is a 51Y F with PMH uncontrolled HTN, PRES syndrome, sickle cell trait, glaucoma, and CKD who was admitted for uncontrolled HTN, ESTEFANI on CKD and UTI. Plan: Neuro: A&O x 3 Maintain normothermia CV: On Cardene drip Continue BP meds as per nephro and primary Cardio consulted EKG showed sinus rhythm, LVH, intervals within normal limits Will check TSH Abd U/S showed no evidence of aortic aneurysm Resp: Comfortable on room air Maintain spO2>90% GI: Pt complains of constipation Miralax and Colace Zofran prn Nephro: ESTEFANI on CKD Nephro consulted-recs appreciated Urine metanephrines elevated at past admit Nephro reports plasma will be set to evaluate for metanephrines On NS@75 FeNa 1.7% Heme: Hgb Stable On oral Iron Continue to monitor CBC ID: UTI on U/A -sensitivities pending On Cefepime afebrile, no leukocytosis ID consulted- recs appreciated Endo: TSH, free T4 pending Maintain euglycemia, euvolemia GI ppx: Pepcid DVT ppx: SCDs Case seen, discussed and reviewed with attending Sadiq Reynolds PGY1 - Date & Time Date: 12/02/16 Time: 15:29 <Jackelin Mitchell MD - Last Filed: 12/02/16 17:28> Meds - Medications Medications: Current Medications Acetaminophen (Tylenol 325mg Tab) 650 mg PO Q4H PRN PRN Reason: headache Amlodipine Besylate (Norvasc) 10 mg PO DAILY [facility] Last Admin: 12/02/16 10:02 Dose: 10 mg Carvedilol (Coreg) 12.5 mg PO BID [facility] Last Admin: 12/02/16 10:00 Dose: 12.5 mg Cholecalciferol (Vitamin D) 1,000 iu PO DAILY [facility] Last Admin: 12/01/16 17:09 Dose: 1,000 iu Clonidine HCl (Catapres-Tts3 0.3 Mg/24 Hr) 1 patch TD Q7D@1000 [facility] Last Admin: 12/01/16 20:52 Dose: 1 patch Diphenhydramine HCl (Benadryl) 25 mg PO HS PRN PRN Reason: Insomnia Docusate Sodium (Colace) 100 mg PO BID [facility] Doxazosin Mesylate (Cardura) 4 mg PO Q12H [facility] Last Admin: 12/02/16 11:49 Dose: 4 mg Ergocalciferol (Drisdol 50,000 Intl Units Cap) 1 cap PO Q7D [facility] Stop: 01/20/17 15:16 Famotidine (Pepcid) 40 mg PO HS [facility] Ferrous Gluconate (Fergon) 324 mg PO TID [facility] Hydromorphone HCl (Dilaudid) 0.5 mg IVP Q6H PRN PRN Reason: Pain, severe (8-10) Last Admin: 12/01/16 15:27 Dose: 0.5 mg Cefepime HCl (Maxipime 1gm) 1 gm in 100 mls @ 100 mls/hr IVPB Q24H [facility] PRN Reason: Protocol Last Admin: 12/01/16 17:40 Dose: Not Given Sodium Chloride (Sodium Chloride 0.9%) 1,000 mls @ 75 mls/hr IV .[id number] [facility] Last Admin: 12/01/16 20:13 Dose: 75 mls/hr Nicardipine HCl (Cardene Iv Premix) 20 mg in 200 mls @ 50 mls/hr IV .Q4H PRN; Protocol; 5 MG/HR PRN Reason: TITRATE PER MD ORDER Last Admin: 12/02/16 13:00 Dose: 15 mg/hr, 150 mls/hr Minoxidil (Minoxidil) 5 mg PO BID [facility] Ondansetron HCl (Zofran Inj) 4 mg IVP Q4H PRN PRN Reason: Nausea/Vomiting Polyethylene Glycol (Miralax) 17 gm PO BID [facility] Results - Vital Signs Recent Vital Signs: Last Vital Signs Temp 98.2 F 12/02/16 12:00 Pulse 63 12/02/16 15:55 Resp 18 12/02/16 15:55 BP 127/68 12/02/16 15:55 Pulse Ox 100 12/02/16 15:55 - Labs Result Diagrams: 12/02/16 10:31 12/02/16 10:31 Labs: Laboratory Results - last 24 hr 12/02/16 12/02/16 12/02/16 05:30 05:30 08:10 WBC RBC Hgb Hct MCV MCH MCHC RDW Plt Count MPV Gran % Lymph % (Auto) Gregory % (Auto) Eos % (Auto) Baso % (Auto) Gran # Lymph # Gregory # Eos # Baso # Sodium Potassium Chloride Carbon Dioxide Anion Gap BUN Creatinine Est GFR ( Amer) Est GFR (Non-Af Amer) Random Glucose Calcium Phosphorus Magnesium Total Bilirubin AST ALT Alkaline Phosphatase Total Protein Albumin Globulin Albumin/Globulin Ratio Free T4 1.80 TSH 3rd Generation 1.33 Urine Color Yellow Urine Appearance Clear Urine pH 5.0 Ur Specific [place] 1.015 Urine Protein 30 H Urine Glucose (UA) Negative Urine Ketones Negative Urine Blood Negative Urine Nitrate Positive H Urine Bilirubin Negative Urine Urobilinogen 0.2 Ur Leukocyte Esterase Negative Urine RBC Negative Urine WBC 0 - 2 Ur Epithelial Cells 0 - 2 Urine Bacteria Trace Ur Random Creatinine 126 Ur Random Sodium 35 Ur Random Urea Nitrogn 622 12/02/16 12/02/16 10:31 10:31 WBC 7.5 RBC 4.08 Hgb 12.1 Hct 34.2 L MCV 83.8 MCH 29.7 MCHC 35.4 RDW 14.1 Plt Count 209 MPV 11.8 H Gran % 66.1 Lymph % (Auto) 21.1 L Gregory % (Auto) 10.0 H Eos % (Auto) 2.1 Baso % (Auto) 0.7 Gran # 4.98 Lymph # 1.6 Gregory # 0.8 H Eos # 0.2 Baso # 0.05 Sodium 138 Potassium 3.6 Chloride 104 Carbon Dioxide 23 Anion Gap 15 BUN 73 H Creatinine 6.2 H Est GFR ( Amer) 9 Est GFR (Non-Af Amer) 7 Random Glucose 106 Calcium 9.6 Phosphorus 4.6 H Magnesium 2.5 H Total Bilirubin 0.6 AST 20 ALT 20 Alkaline Phosphatase 45 Total Protein 8.0 Albumin 4.3 Globulin 3.7 Albumin/Globulin Ratio 1.2 Free T4 TSH 3rd Generation Urine Color Urine Appearance Urine pH Ur Specific [place] Urine Protein Urine Glucose (UA) Urine Ketones Urine Blood Urine Nitrate Urine Bilirubin Urine Urobilinogen Ur Leukocyte Esterase Urine RBC Urine WBC Ur Epithelial Cells Urine Bacteria Ur Random Creatinine Ur Random Sodium Ur Random Urea Nitrogn Attending/Attestation - Attestation I have personally seen and examined this patient.: Yes I have fully participated in the care of the patient.: Yes I have reviewed all pertinent clinical information: Yes Notes (Text): 12/02/16 17:26 51 y/o F w/ malignant hypertension Previous work up showed results suggestive of PHEO Was placed on > 5 anti HTN medications but presented to [facility] with lightheadedness w/ medications and now called for ICU eval due to HTN urgency/ emergency w/ ESTEFANI on CKD Started on Cardene drip to keep sbp 140-160. Oral medications to be taperd while on the drip and patches taken off. Plans to send further labs such as plasma Metanephrines etc. Nephrology following along. Will need MBIG scan at some point. Currently no CP, SOB or change in neurological state. dvtp SCD cc time 55 min
--- NOTE | 2016-12-02 15:06 | CP.PCM.PN ---
Subjective - Date & Time of Evaluation Date of Evaluation: 12/02/16 Time of Evaluation: 11:00 - Subjective Subjective: Follow up Nephrology Covering Note For Dr Rosen Assessment: HTN chronic kidney disease (N12.9) Acute Kidney Injury (N17.9) likely due to HTN emergency Chronic Kidney Disease Stage 4 (N18.4) with ? mg proteinuria likely due to vitamin D with Secondary hyperparathyroidism (E21.1), uncontrolled severe Hypertension with emergency elevated metanephrines in urine, rest secondary HTN work up negative UTI Plan d/w Dr Mitchell for transfer to ICU considering her BP and renal injury No acute need for renal replacement therapy at this time. Hypertension control with meds as ordered. Patient not on ACEI/ARB due to ESTEFANI. will hold aldactone as well. will add minoxidil for now. choice if IV med as nicardipine versus labetalol as per ICU team. Monitor Input/Output, daily weights and renal function with basic metabolic panel will add Iron supplements and weekly Vit D check plasma metanephrines. consider endocrine evaluation for possibility of phaeo. Her imaging neg for adrenal mass Dose meds/antibiotics for reduced GFR <10. Avoid fleets enema/magnesium based laxatives. Avoid nephrotoxins/NSAIDs/ iodinated contrast (unless needed emergently) Glycemic control Further work up for as per primary team Thanks for allowing me to participate in care of your patient. Will follow patient with you. Please call if any Qs Dr Nickolas June Office: [phone] Subjective: Noted events overnight. Patients feels okay. Denies chest pain, palpitation, shortness of breath, leg swelling. No urinary complaints. had some vomitting earlier with lower abdomen pain, now better Physical Examination: General Appearance: Comfortable, in no acute respiratory distress, co- operative. Vitals reviewed and noted as below Lungs: Normal respiratory rate/effort. Breath sounds bilateral equal and clear Heart: Normal rate. s1s2 normal. No rub or gallop. Extremities: no edema. Neurological: Patient is alert, awake and oriented to person, place and time. No focal deficit. Strength bilateral appropriate and equal Skin: Warm and dry. Normal turgor. No rash. Palpitation: Normal elasticity for age Abdomen: Abdomen is soft. Bowel sounds +. There is no abdominal tenderness, no guarding/rigidity or organomegaly : kidney or bladder not palpable Labs/imaging reviewed. Past medical history, past surgical history, family history, social history, allergy reviewed work up: CXR and CT abdomen unremarkable UA: nit and le + with 100 protein no blood BNP 9200 albumin 4.4 MONA/ANCA/Hep B and C negative JAMIE negative on doppler Zacarias 16 renin 2 metanephrine urine elevated at 1635 Vit D <16 PTH 132 TSAT 11% Ferritin 233 Objective - Vital Signs/Intake and Output Vital Signs (last 24 hours): Temp Pulse Resp BP Pulse Ox 98.2 F 69 16 179/101 H 100 12/02/16 12:00 12/02/16 13:00 12/02/16 12:00 12/02/16 13:00 12/02/16 12:00 Intake and Output: 12/02/16 12/02/16 06:59 18:59 Intake Total 1280 Output Total 2 Balance 1278 - Medications Medications: Current Medications Acetaminophen (Tylenol 325mg Tab) 650 mg PO Q4H PRN PRN Reason: headache Amlodipine Besylate (Norvasc) 10 mg PO DAILY [facility] Last Admin: 12/02/16 10:02 Dose: 10 mg Carvedilol (Coreg) 12.5 mg PO BID [facility] Last Admin: 12/02/16 10:00 Dose: 12.5 mg Cholecalciferol (Vitamin D) 1,000 iu PO DAILY [facility] Last Admin: 12/01/16 17:09 Dose: 1,000 iu Clonidine HCl (Catapres-Tts3 0.3 Mg/24 Hr) 1 patch TD Q7D@1000 [facility] Last Admin: 12/01/16 20:52 Dose: 1 patch Diphenhydramine HCl (Benadryl) 25 mg PO HS PRN PRN Reason: Insomnia Doxazosin Mesylate (Cardura) 4 mg PO Q12H [facility] Last Admin: 12/02/16 11:49 Dose: 4 mg Hydromorphone HCl (Dilaudid) 0.5 mg IVP Q6H PRN PRN Reason: Pain, severe (8-10) Last Admin: 12/01/16 15:27 Dose: 0.5 mg Cefepime HCl (Maxipime 1gm) 1 gm in 100 mls @ 100 mls/hr IVPB Q24H ANNA PRN Reason: Protocol Last Admin: 12/01/16 17:40 Dose: Not Given Sodium Chloride (Sodium Chloride 0.9%) 1,000 mls @ 75 mls/hr IV .[id number] ANNA Last Admin: 12/01/16 20:13 Dose: 75 mls/hr Nicardipine HCl (Cardene Iv Premix) 20 mg in 200 mls @ 50 mls/hr IV .Q4H PRN; Protocol; 5 MG/HR PRN Reason: TITRATE PER MD ORDER Last Admin: 12/02/16 13:00 Dose: 15 mg/hr, 150 mls/hr Minoxidil (Minoxidil) 5 mg PO BID [facility] Phenazopyridine Hcl [Azo Standard] 97.5 Mg 97.5 mg PO BID [facility] Last Admin: 12/01/16 17:18 Dose: Not Given Ondansetron HCl (Zofran Inj) 4 mg IVP Q4H PRN PRN Reason: Nausea/Vomiting - Labs Labs: 12/02/16 10:31 12/02/16 10:31 PT 10.7 Seconds (9.9-11.8) 12/01/16 10:21 INR 0.99 (0.93-1.08) 12/01/16 10:21 APTT 29.4 Seconds (23.7-30.8) 12/01/16 10:21
[2016-12-02] MEDS ORDERED: Ergocalciferol 50,000 Intl Units Cap PO SCH (15:15)
[2016-12-02 16:51] LABS: FREE T4 1.8 ng/dL (0.78-2.19)
[2016-12-02 17:05] LABS: THYROID STIMULATING HORMONE 1.33 mIU/mL (0.46-4.68)
--- NOTE | 2016-12-02 17:41 | CON ---
DATE: 12/02/2016 REASON FOR CONSULTATION: Congestive heart failure, hypertension. HISTORY OF PRESENT ILLNESS: The patient is a 51-year-old -Portuguese female who has a history o f hypertension, stage IV renal failure, history of cardiomyopathy, presented to the Emergency Room be cause of dizziness, nausea and vomiting as well as right-sided temporal headache. The patient denies any syncope. The patient is familiar to me from an admission in August of this year when I was consu lted because the patient had chest pain and borderline troponin elevation. At that time, echocardiog raphic study revealed mild concentric LVH with ejection fraction in the range of 35% -40%, mild to mo derate hypokinesis of the apical anterior wall, trace aortic insufficiency. A brain MRI at that time revealed extensive signal abnormality in the brain stem and the basal ganglia bilaterally suspicious for edema. There was also extensive white matter signal abnormality in the cerebral hemisphere bila terally. Findings were of unclear etiology at that time, but could have been secondary to acute ence phalopathy including infectious, inflammatory or hypertensive encephalopathy. At that time, the chandan ent tested positive for opiates and cannabinoids. A transthoracic echo was performed and dissection was ruled out. REVIEW OF SYSTEMS: The patient experienced nausea and vomiting. She denies retrosternal chest pain or back pain. She denies any diaphoresis. MEDICATIONS: Cardura 4 mg p.o. twice a day, clonidine patch 0.3 mg weekly, Coreg 12.5 mg once a day, Dilaudid 0.5 mg q. 6 hours p.r.n., Maxipime 1 gram intravenously daily, minoxidil 5 mg p.o. twice a day, Norvasc 10 mg once a day, normal saline 75 mL an hour, Zofran 4 mg intravenously q. 4 hours p.r. n. PHYSICAL EXAMINATION: GENERAL: The patient is a middle-aged female who does not appear to be in any distress. VITAL SIGNS: Blood pressure 230/110, heart rate 73, temperature 98.4, respirations 18. HEENT: Normocephalic. NECK: No JVD. CHEST: Minimal basal rhonchi. HEART: S1, S2 ____ regular. ABDOMEN: Soft. EXTREMITIES: No edema. LABORATORY DATA: Hemoglobin and hematocrit 12.1 and 34.2, white count and platelet count are within normal limits. Today's BUN and creatinine 73 and 6.2 . The rest of the SMA-7 is within normal limits . ProBNP is 9200. PT, PTT are within normal limits. Aortic ultrasound performed yesterday, no sign ificant evidence of abdominal aortic aneurysm. EKG revealed sinus rhythm with frequent PVCs in a tri geminy fashion. Chest x-ray revealed borderline cardiomegaly, clear lungs. Abdomen and pelvis CT sc an: No acute intra-abdominal findings. ASSESSMENT: 1. Accelerated hypertension. 2. Advanced renal insufficiency. 3. Dilated cardiomyopathy. 4. History of encephalopathy during her most recent admission in August of this year. RECOMMENDATIONS: Continue Cardura 4 mg twice a day, clonidine patch 0.3 mg weekly, Coreg 12.5 mg onc e a day, minoxidil 5 mg twice a day. The case was discussed with the primary physician, Dr. Laureano. The patient will be transferred to the ICU. In the ICU either Cardene or Tridil will be initiated a s a drip for uncontrolled hypertension. In the meantime a nephrology evaluation will be recommended, dialysis is also an option. Misael Carson MD cc: [id number] TT: 12/02/2016 17:40:28 Confirmation # [id number] Dictation # [id number] melanie
[2016-12-02] MEDS: POLYETHYLENE GLYCOL 3350 17 GM/Dose PACKET PO SCH (17:43)
[2016-12-02] MEDS: Cefepime 1gm in NS 100ml 1 GM/100 ML BAG IVPB SCH (18:34)
[2016-12-02] MEDS: Sodium Chloride 0.9% 1,000 ML IV SCH (21:55)
--- NOTE | 2016-12-02 22:42 | CARD ---
APPROVED REPORT EKG Measurement Heart [id number] <Conclusion> Sinus rhythm with premature atrial complexes Moderate voltage criteria for LVH, may be normal variant ST & T wave abnormality, consider inferolateral ischemia Abnormal ECG
--- NOTE | 2016-12-02 23:29 | CARD ---
APPROVED REPORT EKG Measurement Heart [id number] <Conclusion> Sinus rhythm with frequent premature ventricular complexes Possible Left atrial enlargement Left ventricular hypertrophy Nonspecific ST and T wave abnormality Abnormal ECG
[2016-12-03] MEDS: Nicardipine 20 MG/200 ML 20 MG/200 ML BAG IV PRN ×3 (00:17→07:20)
[2016-12-03 06:43] LABS: ADD MANUAL DIFF? NO
--- NOTE | 2016-12-03 07:03 | CP.PCM.PN ---
<Candi Reynolds - Last Filed: 12/03/16 11:32> Subjective - Date & Time of Evaluation Date of Evaluation: 12/03/16 Time of Evaluation: 07:00 - Subjective Subjective: ICU Progress Note Patient seen and examined at bedside. There were no acute overnight events. She complains of constipation this am, but denies CP, SOB, n/v/d, numbness/tingling , vision changes, fever or chills. Objective - Vital Signs/Intake and Output Vital Signs (last 24 hours): Temp Pulse Resp BP Pulse Ox 98.6 F 73 23 129/75 99 12/03/16 04:00 12/03/16 06:00 12/03/16 06:00 12/03/16 06:00 12/03/16 06:00 Intake and Output: 12/03/16 12/03/16 06:59 18:59 Intake Total 4520 Output Total 2600 Balance 1920 - Medications Medications: Current Medications Acetaminophen (Tylenol 325mg Tab) 650 mg PO Q4H PRN PRN Reason: headache Amlodipine Besylate (Norvasc) 10 mg PO DAILY [facility] Last Admin: 12/02/16 10:02 Dose: 10 mg Carvedilol (Coreg) 12.5 mg PO BID [facility] Last Admin: 12/02/16 18:33 Dose: Not Given Cholecalciferol (Vitamin D) 1,000 iu PO DAILY [facility] Last Admin: 12/01/16 17:09 Dose: 1,000 iu Clonidine HCl (Catapres-Tts3 0.3 Mg/24 Hr) 1 patch TD Q7D@1000 [facility] Last Admin: 12/01/16 20:52 Dose: 1 patch Diphenhydramine HCl (Benadryl) 25 mg PO HS PRN PRN Reason: Insomnia Last Admin: 12/02/16 21:29 Dose: 25 mg Docusate Sodium (Colace) 100 mg PO TID [facility] Doxazosin Mesylate (Cardura) 4 mg PO Q12H [facility] Last Admin: 12/02/16 20:00 Dose: 4 mg Ergocalciferol (Drisdol 50,000 Intl Units Cap) 1 cap PO Q7D ANNA Stop: 01/20/17 15:16 Last Admin: 12/02/16 16:00 Dose: 1 cap Famotidine (Pepcid) 40 mg PO HS [facility] Last Admin: 12/02/16 21:43 Dose: 40 mg Ferrous Gluconate (Fergon) 324 mg PO TID [facility] Last Admin: 12/02/16 17:42 Dose: 324 mg Hydromorphone HCl (Dilaudid) 0.5 mg IVP Q6H PRN PRN Reason: Pain, severe (8-10) Last Admin: 12/01/16 15:27 Dose: 0.5 mg Cefepime HCl (Maxipime 1gm) 1 gm in 100 mls @ 100 mls/hr IVPB Q24H ANNA PRN Reason: Protocol Last Admin: 12/02/16 18:34 Dose: 100 mls/hr Sodium Chloride (Sodium Chloride 0.9%) 1,000 mls @ 75 mls/hr IV .[id number] [facility] Last Admin: 12/02/16 21:55 Dose: 75 mls/hr Nicardipine HCl (Cardene Iv Premix) 20 mg in 200 mls @ 50 mls/hr IV .Q4H PRN; Protocol; 5 MG/HR PRN Reason: TITRATE PER MD ORDER Last Admin: 12/03/16 03:30 Dose: 7.5 mg/hr, 75 mls/hr Minoxidil (Minoxidil) 5 mg PO BID [facility] Last Admin: 12/02/16 18:35 Dose: 5 mg Ondansetron HCl (Zofran Inj) 4 mg IVP Q4H PRN PRN Reason: Nausea/Vomiting Polyethylene Glycol (Miralax) 17 gm PO BID [facility] Last Admin: 12/02/16 17:43 Dose: 17 gm - Labs Labs: PT 10.7 Seconds (9.9-11.8) 12/01/16 10:21 INR 0.99 (0.93-1.08) 12/01/16 10:21 APTT 29.4 Seconds (23.7-30.8) 12/01/16 10:21 - Constitutional Appears: No Acute Distress - Head Exam Head Exam: ATRAUMATIC, NORMAL INSPECTION, NORMOCEPHALIC - Eye Exam Eye Exam: Normal appearance, PERRL Pupil Exam: NORMAL ACCOMODATION, PERRL - ENT Exam ENT Exam: Mucous Membranes Moist - Neck Exam Neck Exam: Full ROM - Respiratory Exam Respiratory Exam: Clear to Ausculation Bilateral, NORMAL BREATHING PATTERN. absent: Rales, Rhonchi, Wheezes - Cardiovascular Exam Cardiovascular Exam: REGULAR RHYTHM, +S1, +S2. absent: Gallop, Irregular Rhythm , Rubs, Murmur - GI/Abdominal Exam GI & Abdominal Exam: Distended, Soft, Hypoactive Bowel Sounds. absent: Rigid, Tenderness, Mass, Normal Bowel Sounds, Rebound - Extremities Exam Extremities Exam: Full ROM, Normal Inspection. absent: Calf Tenderness, Pedal Edema - Neurological Exam Neurological Exam: Alert, Awake, CN II-XII Intact, Oriented x3 - Psychiatric Exam Psychiatric exam: Normal Affect, Normal Mood - Skin Skin Exam: Dry, Intact, Normal Color, Warm Assessment and Plan - Assessment and Plan (Free Text) Assessment: This is a 51Y F with PMH uncontrolled HTN, PRES syndrome, sickle cell trait, glaucoma, and CKD who was admitted for malignant HTN, ESTEFANI on CKD and UTI. She has had pheochromocytoma work up in the past, but has not followed up. Plan: Neuro: Pt is A&O x 3 Continue to maintain normothermia CV: Cardene drip-weaned off. Will start PO Labetolol. With IV PRN Continue BP meds - discussed with nephrology- will stop Coreg and Cardura and replace with labetolol and also increase minoxidil. Lasix not recommended due to ESTEFANI Maintain SBP 160s Cardio consulted- recs appreciated Resp: On Room Air Maintain spO2>90% GI: Miralax and Colace Monitor BM for constipation CT abd/pelvis showed moderate constipation Zofran prn Nephro: ESTEFANI on CKD Nephro consulted-recs appreciated Urine metanephrines elevated at past admit- Awaiting plasma metanephrines MIBG scan in future Heme: Hgb Stable On oral Iron and Vit D Continue to monitor CBC ID: UTI on U/A On Cefepime afebrile, no leukocytosis ID consulted- recs appreciated Endo: TSH and T4 normal Consider Endo consult for possible pheochromocytoma Maintain euglycemia, euvolemia GI ppx: Pepcid DVT ppx: SCDs Case seen, discussed and reviewed with attending Sadiq Reynolds PGY1 <Stephen MOULTON,Jackelin Tang - Last Filed: 12/03/16 16:37> Objective - Vital Signs/Intake and Output Vital Signs (last 24 hours): Temp Pulse Resp BP Pulse Ox 98.3 F 73 13 132/86 100 12/03/16 15:40 12/03/16 16:00 12/03/16 16:00 12/03/16 16:00 12/03/16 16:00 Intake and Output: 12/03/16 12/03/16 06:59 18:59 Intake Total 4720 Output Total 2600 Balance 2120 - Medications Medications: Current Medications Acetaminophen (Tylenol 325mg Tab) 650 mg PO Q4H PRN PRN Reason: headache Amlodipine Besylate (Norvasc) 10 mg PO DAILY [facility] Last Admin: 12/03/16 09:40 Dose: 10 mg Cholecalciferol (Vitamin D) 1,000 iu PO DAILY [facility] Last Admin: 12/03/16 09:40 Dose: 1,000 iu Clonidine HCl (Catapres-Tts3 0.3 Mg/24 Hr) 1 patch TD Q7D@1000 [facility] Last Admin: 12/01/16 20:52 Dose: 1 patch Diphenhydramine HCl (Benadryl) 25 mg PO HS PRN PRN Reason: Insomnia Last Admin: 12/02/16 21:29 Dose: 25 mg Docusate Sodium (Colace) 100 mg PO TID [facility] Last Admin: 12/03/16 15:17 Dose: 100 mg Famotidine (Pepcid) 40 mg PO HS [facility] Last Admin: 12/02/16 21:43 Dose: 40 mg Ferrous Gluconate (Fergon) 324 mg PO TID [facility] Last Admin: 12/03/16 15:16 Dose: 324 mg Hydralazine HCl (Apresoline) 50 mg PO TID [facility] Last Admin: 12/03/16 15:16 Dose: 50 mg Hydromorphone HCl (Dilaudid) 0.5 mg IVP Q6H PRN PRN Reason: Pain, severe (8-10) Last Admin: 12/01/16 15:27 Dose: 0.5 mg Cefepime HCl (Maxipime 1gm) 1 gm in 100 mls @ 100 mls/hr IVPB Q24H [facility] PRN Reason: Protocol Last Admin: 12/02/16 18:34 Dose: 100 mls/hr Labetalol HCl (Trandate) 20 mg IV Q6H PRN PRN Reason: Systolic Blood Pressure Labetalol HCl (Trandate) 400 mg PO BID [facility] Minoxidil (Minoxidil) 5 mg PO BID [facility] Last Admin: 12/03/16 09:55 Dose: 5 mg Ondansetron HCl (Zofran Inj) 4 mg IVP Q4H PRN PRN Reason: Nausea/Vomiting Polyethylene Glycol (Miralax) 17 gm PO BID [facility] Last Admin: 12/03/16 11:59 Dose: 17 gm - Labs Labs: 12/03/16 06:35 12/03/16 06:35 PT 10.7 Seconds (9.9-11.8) 12/01/16 10:21 INR 0.99 (0.93-1.08) 12/01/16 10:21 APTT 29.4 Seconds (23.7-30.8) 12/01/16 10:21 Attending/Attestation - Attestation I have personally seen and examined this patient.: Yes I have fully participated in the care of the patient.: Yes I have reviewed all pertinent clinical information, including history, physical exam and plan: Yes Notes (Text): 12/03/16 16:36 51 y/o F w/ HTN emergency Weaned off Cardene P.O anti HTN meds changed. Labatelol added and Minoxidil dose increased . Plan to keep SBP appx 160. No new end organ damage noted . ESTEFANI on CKD. urine output preserved and no signs of Uremia or acidosis. No emergent HD yet. Nephrology following closely . PhEO work up in progress awaiting possible MBIG scan as outpatient. cc time 45 min
[2016-12-03 07:08] LABS: BASO # 0.04 K/mm3 (0.0-2.0); BASO % 0.6 % (0.0-3.0); EOS # 0.4 (0.0-0.7); EOS % 5.6 % (1.5-5.0); GRAN # 3.99 (1.4-6.5); GRAN % 58.9 % (50.0-68.0); HEMATOCRIT 31.7 % (36.0-48.0); LYMPH # 1.5 (1.2-3.4); LYMPH % 22.5 % (22.0-35.0); MEAN CORPUSCULAR HEMOGLOBIN 29.3 pg (25.0-35.0); MEAN CORPUSCULAR HGB CONC 35.3 g/dl (31.0-37.0); MEAN PLATELET VOLUME 12.5 fl (7.0-11.0); MONO # 0.8 (0.1-0.6); MONO % 12.4 % (1.0-6.0); PLATELET COUNT 206 10^3/uL (120.0-450.0); RED CELL DISTRIBUTION WIDTH 14.1 % (11.5-14.5); WHITE BLOOD COUNT 6.8 10^3/ul (4.5-11.0)
[2016-12-03 07:39] LABS: ALB/GLOB RATIO 1.1 (1.1-1.8); BILIRUBIN,TOTAL 0.4 mg/dL (0.2-1.3); CALCIUM 8.8 mg/dL (8.4-10.5); POTASSIUM 3.6 mmol/L (3.6-5.0); TOTAL PROTEIN 7.3 g/dL (5.8-8.3)
[2016-12-03 08:02] LABS: CREATININE, RANDOM URINE 112 mg/dL (20-320)
--- NOTE | 2016-12-03 08:21 | CON ---
DATE: 12/02/2016 CHIEF COMPLAINT: Headache. HISTORY OF PRESENT ILLNESS: This is a 51-year-old woman who is well known to me fro m previous admission where she had a history of posterior reversible encephalopathy syndrome from hyp ertensive emergency and malignant hypertension on 09/13/2016, history of uncontrolled hypertension, s ickle cell trait, glaucoma, chronic kidney disease. Was admitted for dizziness with nausea and vomit ing. Started on 2 new BP meds, Aldactone and losartan, by her primary care doctor. She felt her BP was too low, becoming dizzy. Therefore, had stopped. She was found to have a UTI and is on antibiot ics. She has had diffuse pressure headache with some mild photophobia and phonophobia, but no nausea or vomiting, no paresthesias in the extremities. She was found to have elevated systolic and diasto lic blood pressures, 244/110, which now she is in ICU for managing malignant hypertension, and nephrology is on board for acute renal failure. They recommended avoid nephrotoxins, NSAIDs, iodinat ed contrast, and monitor I's and O's. Currently, she is sitting up eating food. Headaches much better since the blood pressure is being co ntrolled. Moving all extremities equally. No pronator drift seen. PAST MEDICAL HISTORY: Uncontrolled hypertension, PRES syndrome, sickle cell trait, glaucoma, chronic kidney disease. PAST SURGICAL HISTORY: . ALLERGIES: No known drug allergies. SOCIAL HISTORY: Former ETOH abuse. Denies smoking. Smokes marijuana. FAMILY HISTORY: History of hypertension, diabetes. REVIEW OF SYSTEMS: A 14-point review of systems negative except in the HPI. PHYSICAL EXAMINATION: VITAL SIGNS: Temperature 98.2, pulse rate is 69, blood pressure 179/101, respiratory rate of 18, oxy gen saturation 100% by room air. GENERAL: The patient is sitting up in bed in no acute distress. HEENT: Atraumatic, normocephalic. PERRLA. Extraocular muscles intact. NECK: Supple, no JVD, no adenopathy noted. LUNGS: Clear to auscultation. No adventitious sounds. HEART: S1, S2, normal rate and rhythm. No murmurs, rubs, or gallops. ABDOMEN: Soft, nontender, nondistended. Bowel sounds are present. EXTREMITIES: No clubbing, no cyanosis. Peripheral pulses 2+ felt bilaterally. NEUROLOGIC: The patient is alert, oriented to person, place, month, and year. Speech is fluent, wit hout any errors. Cranial nerves II-XII intact. Recall after 5 minutes is 2/3. Poor attention span, slow thought process. MOTOR: Normal tone, normal bulk of muscle. Moves all extremities equally. No pronator drift seen. SENSORY: Light touch, pinprick, proprioception, vibration intact. DTRs 2+ throughout. COORDINATION: Cfmkea-xv-ypye intact. Toes downgoing bilaterally. GAIT: Deferred for now. LABORATORIES: Sodium is 138, potassium 3.6, chloride of 104, carbon dioxide 23, BUN of 73, creatinin e of 6.2. Random glucose of 106. ASSESSMENT: This is a 51-year-old woman with history of hypertension, uncontrolled, history of posterior reversible encephalopathy syndrome diagnosed on 09/13/2012, history of dyslipid emia, kidney disease, glaucoma, sickle cell trait, who came in for uncontrolled hypertension, acute o n chronic kidney injury, and a urinary tract infection. Was consulted for headache. Her headaches a re more of a diffuse pressure or tension-type secondary to uncontrolled blood pressure. PLAN: At this time, recommend: 1. Keep her blood pressures slowly reduced 20 mmHg at a time to decrease the headache intensity and to prevent further kidney damage. Keep the blood pressure target to at least 120 to 130 mmHg over e next 2 or 3 days. 2. Monitor electrolytes currently. 3. Continue nephrology's recommendation according to acute on chronic kidney injury. Urine metaneph rines were elevated in the past. 4. Continue antibiotics for urinary tract infection. 5. The patient is on minoxidil and IV nicardipine drip for blood pressure control. 6. No further imaging is required unless there is a focal change in mental status or any seizures. At this time, continue with current present medical management. Please reconsult if there is any samaria nge. Thank you for this consult. Could consider Fioricet 1 tab q. 4 hours for acute onset of headache if needed. Herbert Anne MD cc: [id number] TT: 12/02/2016 17:38:00 Confirmation # [id number] Dictation # [id number]
--- NOTE | 2016-12-03 09:31 | PN ---
DATE: 12/02/2016 SUBJECTIVE: The patient was seen and examined on 12/02/16. I saw patient in the telemetry, but later on was transferred to the unit by geothermal operations engineer. Yesterday, the patient had multiple times vomiting. Zofran was offered, but patient refused that. Today, no nausea, vomiting, or diarrhea, still complaining of abdominal pain. No headache or dizziness. No swelling of the legs. No fevers, no chills. PHYSICAL EXAMINATION: VITAL SIGNS: Temperature 98, pulse is 60, blood pressure 140/76, respiratory rate 17. HEENT: Head normocephalic, atraumatic. Eyes: PERRLA. Extraocular muscles intact. Conjunctivae clear. Nose patent. Mucous membranes moist. NECK: Supple. No carotid bruit, JVD or thyromegaly. CHEST: Bilaterally symmetrical. HEART: S1, S2 positive. LUNGS: Clear to auscultation. ABDOMEN: Soft. Tender in the left flank area. Bowel sounds are positive. EXTREMITIES: No edema, no cyanosis. NEUROLOGIC: The patient is awake, alert and moving all 4 extremities. No focal deficits. MEDICATIONS: Benadryl, nicardipine, Cardura, Catapres, Colace, Coreg, Dilaudid , vitamin D, ferrous sulfate, Maxipime, minoxidil, Maalox, MiraLax, Pepcid, NS, Tylenol, Zofran. LABORATORY DATA: White blood cell count is 7.5, hemoglobin 12.1, hematocrit 34.2, platelets are 209. Sodium 138, potassium 3.6, BUN 73, creatinine 6.2. ASSESSMENT AND PLAN: The patient is a 51-year-old lady with history of hypokalemia, improved; renal insufficiency, getting better; hyperphosphatemia, hypermagnesemia, congestive heart failure, proteinuria, urinary tract infection , high microalbuminuria, seen by the geothermal operations engineer, Dr. Nickolas June, covering Dr. Rosen. Discussion done with Dr. Nickolas June. Because the patient is nauseous and vomiting, is tolerating p.o. medicines, we transferred the patient to the unit so we can give IV antihypertensive medications. High blood pressure, chronic kidney disease, acute kidney injury, lethargy due to hypertensive emergencies. Chronic kidney disease stage IV with proteinuria, vitamin D deficiency with secondary hyperparathyroidism. Elevated metanephrines in the urine. Discussion done with Dr. Olmos, geothermal operations engineer, transferred the patient to the unit for better control of blood pressure. No acute need for renal replacement therapy at this time as per geothermal operations engineer. Hypertension controlled with medications as ordered. The patient is not on KALYAN or ARB due to acute kidney injury and Dr. June held the Aldactone as well, did minoxidil for now. Try to see if IV medications as nicardipine versus labetalol as per ICU team. Monitoring in's and out's Iron deficiency. Imaging negative for adrenal mass. Avoid nephrotoxic and nonsteroidal antiinflammatory drugs, iodine contrast unless needed emergently. Glycemic control. Appreciated Dr. Nickolas June's input. Dr. Jackelin Mitchell evaluated the patient and accepted the patient, appreciated help. The patient is seen by Dr. Goyal, infectious disease, for urinary tract infection. The patient has syndrome as per infectious disease. History of cataract surgery, cataracts, sickle cell trait, continue on cefepime. The patient had hepatitis profile done 2 months ago which was negative. Infectious disease ordered HIV test because of her age. We will follow up. Karli Laureano MD cc: [id number] TT: 12/03/2016 09:30:35 Confirmation # [id number] Dictation # [id number] tn MTDD
--- NOTE | 2016-12-03 11:10 | CON ---
DATE: 12/03/2016 REASON FOR CONSULTATION: Uncontrolled hypertension. The patient was seen by Dr. Carson who saw yesterday covering me, but the patient has been seen in the past by Dr. Carson as well, so we will transfer his care to Dr. Carson and put a consult f or Dr. Carson because the patient is well known to him and he saw in the past as well, and we will sign off . Kristine Alejandre MD cc: [id number] TT: 12/03/2016 11:09:01 Confirmation # [id number] Dictation # [id number] rn
[2016-12-03] MEDS ORDERED: Labetalol 5 mg/ml Inj 20ML IV PRN (11:20)
--- NOTE | 2016-12-03 11:32 | PN ---
DATE: 12/03/2016 SUBJECTIVE: The patient's nausea and vomiting have improved. She is still significantly hypertensive and Cardene infusion was just discontinued. No retrosternal chest pain. PHYSICAL EXAMINATION: VITAL SIGNS: Blood pressure 170/83, heart rate 89, temperature 98.1, respiration 22. HEENT: Normocephalic. NECK: No JVD. CHEST: Diminished breath sounds over the bases. HEART: S1, S2 regular. ABDOMEN: Soft. EXTREMITIES: Trace leg edema. LABORATORIES: Hemoglobin and hematocrit 11.2 and 31.7, white count 6.8, platelet count 206,000. SMA-7: Sodium 136, potassium 3.6, chloride 105, CO2 19 , glucose 97, BUN 64, creatinine 5.3. Urine drug screen is positive for opiates and cannabinoids. ASSESSMENT: 1. Advanced renal insufficiency. 2. Cardiomyopathy. 3. Uncontrolled hypertension. 4. Cannabinoids as well as opiate abuse. RECOMMENDATIONS: Continue hydralazine 50 mg t.i.d., Cardura at 4 mg p.o. twice a day, clonidine patch 0.3 mg daily, Coreg at 25 mg twice a day, minoxidil at 5 mg twice a day, Cont. IV Maxipime at 1 gram daily, Norvasc at 10 mg once a day. I did review the neurology evaluation and no further imaging was recommended, only if there is focal change or any seizures. I will administer one dose of 60 mg of Lasix IV push today. Awaiting nephrology evaluation. Misael Carson MD cc: [id number] TT: 12/03/2016 11:31:17 Confirmation # [id number] Dictation # [id number] [address]
--- NOTE | 2016-12-03 11:56 | CP.PCM.PN ---
Subjective - Date & Time of Evaluation Date of Evaluation: 12/03/16 Time of Evaluation: 11:52 - Subjective Subjective: Follow up Nephrology Covering Note For Dr Rosen Assessment: HTN chronic kidney disease (N12.9) Acute Kidney Injury (N17.9) likely due to HTN emergency Chronic Kidney Disease Stage 4 (N18.4) with 429 mg proteinuria likely due to HTN vitamin D with Secondary hyperparathyroidism (E21.1), uncontrolled severe Hypertension with emergency elevated metanephrines in urine, rest secondary HTN work up negative UTI Plan No acute need for renal replacement therapy at this time. Hypertension control with meds as ordered. Patient not on ACEI/ARB due to ESTEFANI. continue with norvasc 10 mg/day, minoxidil 5 mg bid, labetalol 400 mg BID and hydralazine, clonidine with PRN labetalol. Monitor Input/Output, daily weights and renal function with basic metabolic panel added Iron supplements and continue with Vit D checking plasma metanephrines. consider endocrine evaluation for possibility of phaeo. Her imaging neg for adrenal mass d/c IVF. pt planned for transfer out of ICU. Dose meds/antibiotics for reduced GFR <10. Avoid fleets enema/magnesium based laxatives. Avoid nephrotoxins/NSAIDs/ iodinated contrast (unless needed emergently) Glycemic control Further work up for as per primary team Thanks for allowing me to participate in care of your patient. Will follow patient with you. Please call if any Qs Dr Nickolas June Office: [phone] Subjective: Noted events overnight. Patients feels okay. Denies chest pain, palpitation, shortness of breath, leg swelling. No urinary complaints. cardene drip being d/c Physical Examination: General Appearance: Comfortable, in no acute respiratory distress, co- operative. Vitals reviewed and noted as below Lungs: Normal respiratory rate/effort. Breath sounds bilateral equal and clear Heart: Normal rate. s1s2 normal. No rub or gallop. Extremities: no edema. Neurological: Patient is alert, awake and oriented to person, place and time. No focal deficit. Strength bilateral appropriate and equal Skin: Warm and dry. Normal turgor. No rash. Palpitation: Normal elasticity for age Abdomen: Abdomen is soft. Bowel sounds +. There is no abdominal tenderness, no guarding/rigidity or organomegaly : kidney or bladder not palpable Labs/imaging reviewed. Past medical history, past surgical history, family history, social history, allergy reviewed work up: CXR and CT abdomen unremarkable UA: nit and le + with 100 protein no blood BNP 9200 albumin 4.4 MONA/ANCA/Hep B and C negative JAMIE negative on doppler Zacarias 16 renin 2 metanephrine urine elevated at 1635 Vit D <16 PTH 132 TSAT 11% Ferritin 233 Objective - Vital Signs/Intake and Output Vital Signs (last 24 hours): Temp Pulse Resp BP Pulse Ox 98.1 F 79 16 176/78 H 100 12/03/16 08:12 12/03/16 11:00 12/03/16 11:00 12/03/16 11:00 12/03/16 11:00 Intake and Output: 12/03/16 12/03/16 06:59 18:59 Intake Total 4720 Output Total 2600 Balance 2120 - Medications Medications: Current Medications Acetaminophen (Tylenol 325mg Tab) 650 mg PO Q4H PRN PRN Reason: headache Amlodipine Besylate (Norvasc) 10 mg PO DAILY [facility] Last Admin: 12/03/16 09:40 Dose: 10 mg Cholecalciferol (Vitamin D) 1,000 iu PO DAILY [facility] Last Admin: 12/03/16 09:40 Dose: 1,000 iu Clonidine HCl (Catapres-Tts3 0.3 Mg/24 Hr) 1 patch TD Q7D@1000 [facility] Last Admin: 12/01/16 20:52 Dose: 1 patch Diphenhydramine HCl (Benadryl) 25 mg PO HS PRN PRN Reason: Insomnia Last Admin: 12/02/16 21:29 Dose: 25 mg Docusate Sodium (Colace) 100 mg PO TID [facility] Last Admin: 12/03/16 09:41 Dose: 100 mg Ergocalciferol (Drisdol 50,000 Intl Units Cap) 1 cap PO Q7D [facility] Stop: 01/20/17 15:16 Last Admin: 12/02/16 16:00 Dose: 1 cap Famotidine (Pepcid) 40 mg PO HS [facility] Last Admin: 12/02/16 21:43 Dose: 40 mg Ferrous Gluconate (Fergon) 324 mg PO TID [facility] Last Admin: 12/03/16 09:38 Dose: 324 mg Hydralazine HCl (Apresoline) 50 mg PO TID [facility] Last Admin: 12/03/16 08:54 Dose: 50 mg Hydromorphone HCl (Dilaudid) 0.5 mg IVP Q6H PRN PRN Reason: Pain, severe (8-10) Last Admin: 12/01/16 15:27 Dose: 0.5 mg Cefepime HCl (Maxipime 1gm) 1 gm in 100 mls @ 100 mls/hr IVPB Q24H ANNA PRN Reason: Protocol Last Admin: 12/02/16 18:34 Dose: 100 mls/hr Labetalol HCl (Trandate) 20 mg IV Q6H PRN PRN Reason: Systolic Blood Pressure Labetalol HCl (Trandate) 400 mg PO BID [facility] Minoxidil (Minoxidil) 5 mg PO BID [facility] Last Admin: 12/03/16 09:55 Dose: 5 mg Ondansetron HCl (Zofran Inj) 4 mg IVP Q4H PRN PRN Reason: Nausea/Vomiting Polyethylene Glycol (Miralax) 17 gm PO BID [facility] Last Admin: 12/02/16 17:43 Dose: 17 gm - Labs Labs: 12/03/16 06:35 12/03/16 06:35 PT 10.7 Seconds (9.9-11.8) 12/01/16 10:21 INR 0.99 (0.93-1.08) 12/01/16 10:21 APTT 29.4 Seconds (23.7-30.8) 12/01/16 10:21
[2016-12-03] MEDS: POLYETHYLENE GLYCOL 3350 17 GM/Dose PACKET PO SCH ×2 (11:59→17:24)
--- NOTE | 2016-12-03 17:00 | CP.PCM.PN ---
Subjective - Date & Time of Evaluation Date of Evaluation: 12/03/16 Time of Evaluation: 08:50 - Subjective Subjective: Patient is feeling better, no fevers overnight, no nausea, no diarrhea. Objective - Vital Signs/Intake and Output Vital Signs (last 24 hours): Temp Pulse Resp BP Pulse Ox 98.6 F 73 23 129/75 99 12/03/16 04:00 12/03/16 06:00 12/03/16 06:00 12/03/16 06:00 12/03/16 06:00 Intake and Output: 12/02/16 12/03/16 18:59 06:59 Intake Total 2520 Output Total 1300 Balance 1220 - Medications Medications: Current Medications Acetaminophen (Tylenol 325mg Tab) 650 mg PO Q4H PRN PRN Reason: headache Amlodipine Besylate (Norvasc) 10 mg PO DAILY [facility] Last Admin: 12/02/16 10:02 Dose: 10 mg Carvedilol (Coreg) 12.5 mg PO BID [facility] Last Admin: 12/02/16 18:33 Dose: Not Given Cholecalciferol (Vitamin D) 1,000 iu PO DAILY [facility] Last Admin: 12/01/16 17:09 Dose: 1,000 iu Clonidine HCl (Catapres-Tts3 0.3 Mg/24 Hr) 1 patch TD Q7D@1000 [facility] Last Admin: 12/01/16 20:52 Dose: 1 patch Diphenhydramine HCl (Benadryl) 25 mg PO HS PRN PRN Reason: Insomnia Last Admin: 12/02/16 21:29 Dose: 25 mg Docusate Sodium (Colace) 100 mg PO BID [facility] Last Admin: 12/02/16 17:42 Dose: 100 mg Doxazosin Mesylate (Cardura) 4 mg PO Q12H [facility] Last Admin: 12/02/16 20:00 Dose: 4 mg Ergocalciferol (Drisdol 50,000 Intl Units Cap) 1 cap PO Q7D [facility] Stop: 01/20/17 15:16 Last Admin: 12/02/16 16:00 Dose: 1 cap Famotidine (Pepcid) 40 mg PO HS [facility] Last Admin: 12/02/16 21:43 Dose: 40 mg Ferrous Gluconate (Fergon) 324 mg PO TID [facility] Last Admin: 12/02/16 17:42 Dose: 324 mg Hydromorphone HCl (Dilaudid) 0.5 mg IVP Q6H PRN PRN Reason: Pain, severe (8-10) Last Admin: 12/01/16 15:27 Dose: 0.5 mg Cefepime HCl (Maxipime 1gm) 1 gm in 100 mls @ 100 mls/hr IVPB Q24H ANNA PRN Reason: Protocol Last Admin: 12/02/16 18:34 Dose: 100 mls/hr Sodium Chloride (Sodium Chloride 0.9%) 1,000 mls @ 75 mls/hr IV .[id number] [facility] Last Admin: 12/02/16 21:55 Dose: 75 mls/hr Nicardipine HCl (Cardene Iv Premix) 20 mg in 200 mls @ 50 mls/hr IV .Q4H PRN; Protocol; 5 MG/HR PRN Reason: TITRATE PER MD ORDER Last Admin: 12/03/16 03:30 Dose: 7.5 mg/hr, 75 mls/hr Minoxidil (Minoxidil) 5 mg PO BID [facility] Last Admin: 12/02/16 18:35 Dose: 5 mg Ondansetron HCl (Zofran Inj) 4 mg IVP Q4H PRN PRN Reason: Nausea/Vomiting Polyethylene Glycol (Miralax) 17 gm PO BID [facility] Last Admin: 12/02/16 17:43 Dose: 17 gm - Labs Labs: PT 10.7 Seconds (9.9-11.8) 12/01/16 10:21 INR 0.99 (0.93-1.08) 12/01/16 10:21 APTT 29.4 Seconds (23.7-30.8) 12/01/16 10:21 - Constitutional Appears: Non-toxic, No Acute Distress - Head Exam Head Exam: NORMAL INSPECTION - ENT Exam ENT Exam: Mucous Membranes Moist - Neck Exam Neck Exam: absent: Lymphadenopathy, Meningismus - Respiratory Exam Respiratory Exam: Decreased Breath Sounds - Cardiovascular Exam Cardiovascular Exam: +S1, +S2 - GI/Abdominal Exam GI & Abdominal Exam: Soft. 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 coli HTN, poorly-controlled history of glaucoma history of cataracts sickle cell trait S/P Caesarian section obesity with BMI 31 Plan continue Merrem pending identification and sensitivities of the gram negative bacilli in the urine Will continue to monitor clinically
[2016-12-03] MEDS: Cefepime 1gm in NS 100ml 1 GM/100 ML BAG IVPB SCH (17:18)
--- NOTE | 2016-12-03 21:03 | PN ---
DATE: 12/03/2016 SUBJECTIVE: The patient was seen and examined on the bedside, looks comfortable , better. No more nausea or vomiting, diarrhea. No more headache. Abdominal pain is getting better. Sister is standing on the bedside. Blood pressure is getting better. No headache, no dizziness, no fever, no chills. PHYSICAL EXAMINATION: VITAL SIGNS: Temperature 98.6, pulse 83, blood pressure 132/80. HEENT: Head normocephalic, atraumatic. Eyes PERRLA. Extraocular muscles intact. Conjunctivae are clear. Nose patent. Mucous membranes moist. NECK: Supple. No carotid bruit, JVD or thyromegaly. CHEST: Bilaterally symmetrical. HEART: S1, S2 positive. LUNGS: Clear to auscultation. ABDOMEN: Soft. Bowel sounds present. No organomegaly. EXTREMITIES: No edema, no cyanosis. NEUROLOGIC: The patient is awake, alert, moving all 4 extremities. No focal deficit. MEDICATIONS: Hydralazine, Benadryl, Clonidine, Dilaudid, iron sulfate, Maxipime, minoxidil, MiraLax, Pepcid, labetalol, vitamin D, Zofran. LABORATORY DATA: White blood cells 6.8, hemoglobin 11.2, hematocrit 31.7, platelets 206. Sodium 136, potassium 3.6, BUN 54, creatinine 5.3. ASSESSMENT AND PLAN: The patient is a 51-year-old female with anemia, renal insufficiency, getting better, BUN was 78, now it is 54, creatinine was 6.5, now 5.3, hyperphosphatemia, hypermagnesemia, seen by infectious disease, Dr. Surjit Vance, urinary tract infection with gram-negative bacilli, history of hypertension ,status post sepsis from urinary tract infection with Escherichia coli. Blood pressure very poorly controlled, history of glaucoma, cataract, sickle cell trait, status post infection, obesity. We will continue Merrem pending on the identification and sensitivity of the gram-negative bacilli in the urine. Appreciated Dr. Vance's input. Seen by and journeyman wireman. Discussion done with patient's sister and with patient herself. All questions answered. We will follow up. Karli Laureano MD cc: [id number] TT: 12/03/2016 21:03:05 Confirmation # [id number] Dictation # [id number] [address]
[2016-12-04 05:37] LABS: ADD MANUAL DIFF? NO
[2016-12-04 05:57] LABS: ALB/GLOB RATIO 1.1 (1.1-1.8); BILIRUBIN,TOTAL 0.5 mg/dL (0.2-1.3); TOTAL PROTEIN 7.1 g/dL (5.8-8.3)
[2016-12-04 06:03] LABS: BASO # 0.02 K/mm3 (0.0-2.0); BASO % 0.3 % (0.0-3.0); EOS # 0.3 (0.0-0.7); EOS % 4.5 % (1.5-5.0); GRAN # 3.85 (1.4-6.5); GRAN % 59.3 % (50.0-68.0); HEMATOCRIT 30.9 % (36.0-48.0); LYMPH # 1.6 (1.2-3.4); MEAN CELL VOLUME 83.7 fL (80.0-105.0); MEAN CORPUSCULAR HEMOGLOBIN 29.3 pg (25.0-35.0); MEAN PLATELET VOLUME 12.2 fl (7.0-11.0); MONO # 0.8 (0.1-0.6); MONO % 11.9 % (1.0-6.0); PLATELET COUNT 203 10^3/uL (120.0-450.0); RED CELL DISTRIBUTION WIDTH 14.2 % (11.5-14.5); WHITE BLOOD COUNT 6.5 10^3/ul (4.5-11.0)
--- NOTE | 2016-12-04 07:14 | CP.CCUPN ---
<Ana Adams - Last Filed: 12/04/16 13:50> CCU Subjective - Physician Review Subjective (Free Text): 12/04/16 07:11 Pt in bed, seen and examined. No acute distress. denies diaphoresis, CP, SOB, dizziness. No BM CCU Objective - Vital Signs / Intake & Output Vital Signs (Last 4 hours): Vital Signs Pulse Resp BP Pulse Ox 12/04/16 04:30 76 23 99 12/04/16 04:20 76 24 99 12/04/16 04:10 70 20 99 12/04/16 04:00 74 22 141/74 99 12/04/16 03:50 74 22 99 12/04/16 03:40 74 22 99 12/04/16 03:30 76 21 99 12/04/16 03:20 72 22 99 Intake and Output (Last 8hrs): Intake & Output 12/03/16 12/04/16 12/04/16 22:59 06:59 14:59 Intake Total 1075 Balance 1075 Intake: Oral 550 Other 525 Other: Voiding Method Bedside Commode # Voids Urine, Voided 450 # Bowel Movements 0 - Physical Exam Head: Positive for: Atraumatic, Normocephalic Pupils: Positive for: PERRL Extroacular Muscles: Positive for: EOMI Conjunctiva: Positive for: Normal Mouth: Positive for: Moist Mucous Membranes Neck: Positive for: Normal Range of Motion Respiratory/Chest: Positive for: Clear to Auscultation, Good Air Exchange. Negative for: Respiratory Distress, Accessory Muscle Use Cardiovascular: Positive for: Regular Rate and Rhythm, Normal S1, S2. Negative for: Murmurs Abdomen: Positive for: Normal Bowel Sounds. Negative for: Tenderness, Distention, Peritoneal Signs, Rebound, Guarding Back: Positive for: Normal Inspection Upper Extremity: Positive for: Normal Inspection. Negative for: Cyanosis, Edema Lower Extremity: Positive for: Normal Inspection. Negative for: Edema Neurological: Positive for: GCS=15, CN II-XII Intact, Speech Normal Skin: Positive for: Warm, Dry, Normal Color. Negative for: Rashes Psychiatric: Positive for: Alert, Oriented x 3, Normal Insight, Normal Concentration - Medications Active Medications: Active Medications Generic Name Dose Route Start Last Admin Trade Name Freq PRN Reason Stop Dose Admin Acetaminophen 650 mg 12/01/16 16:17 Tylenol 325mg Tab PO Q4H PRN headache Amlodipine Besylate 10 mg 12/01/16 16:30 12/03/16 09:40 Norvasc PO 10 mg DAILY ANNA Administration Cholecalciferol 1,000 iu 12/01/16 16:30 12/03/16 09:40 Vitamin D PO 1,000 iu DAILY ANNA Administration Clonidine HCl 1 patch 12/01/16 19:54 12/01/16 20:52 Catapres-Tts3 0.3 Mg/24 Hr TD 1 patch Q7D@1000 ANNA Administration Diphenhydramine HCl 25 mg 12/02/16 14:42 12/02/16 21:29 Benadryl PO 25 mg HS PRN Administration Insomnia Docusate Sodium 100 mg 12/03/16 10:00 12/03/16 17:23 Colace PO 100 mg TID ANNA Administration Famotidine 40 mg 12/02/16 22:00 12/03/16 22:01 Pepcid PO 40 mg HS ANNA Administration Ferrous Gluconate 324 mg 12/02/16 18:00 12/03/16 17:23 Fergon PO 324 mg TID ANNA Administration Hydralazine HCl 50 mg 12/03/16 08:42 12/03/16 15:16 Apresoline PO 50 mg TID ANNA Administration Hydromorphone HCl 0.5 mg 12/01/16 15:12 12/01/16 15:27 Dilaudid IVP 0.5 mg Q6H PRN Administration Pain, severe (8-10) Cefepime HCl 1 gm in 100 mls @ 100 mls/hr 12/01/16 17:00 12/03/16 17:18 Maxipime 1gm IVPB 100 mls/hr Q24H ANNA Administration Protocol Labetalol HCl 20 mg 12/03/16 11:20 Trandate IV Q6H PRN Systolic Blood Pressure Labetalol HCl 400 mg 12/03/16 11:51 12/03/16 17:22 Trandate PO 400 mg BID ANNA Administration Minoxidil 5 mg 12/02/16 11:00 12/03/16 18:19 Minoxidil PO 5 mg BID ANNA Administration Ondansetron HCl 4 mg 12/01/16 13:57 Zofran Inj IVP Q4H PRN Nausea/Vomiting Polyethylene Glycol 17 gm 12/02/16 18:00 12/03/16 17:24 Miralax PO 17 gm BID ANNA Administration - Patient Studies Lab Studies: Lab Studies 12/04/16 12/04/16 12/03/16 Range/Units 05:00 05:00 06:35 WBC 6.5 (4.5-11.0) 10^3/ul RBC 3.69 (3.5-6.1) 10^6/uL Hgb 10.8 L (12.0-16.0) gm/dL Hct 30.9 L (36.0-48.0) % MCV 83.7 (80.0-105.0) fL MCH 29.3 (25.0-35.0) pg MCHC 35.0 (31.0-37.0) g/dl RDW 14.2 (11.5-14.5) % Plt Count 203 (120.0-450.0) 10^3/uL MPV 12.2 H (7.0-11.0) fl Gran % 59.3 (50.0-68.0) % Lymph % (Auto) 24.0 (22.0-35.0) % Cherry % (Auto) 11.9 H (1.0-6.0) % Eos % (Auto) 4.5 (1.5-5.0) % Baso % (Auto) 0.3 (0.0-3.0) % Gran # 3.85 (1.4-6.5) Lymph # 1.6 (1.2-3.4) Cherry # 0.8 H (0.1-0.6) Eos # 0.3 (0.0-0.7) Baso # 0.02 (0.0-2.0) K/mm3 Sodium 139 136 (132-148) mmol/L Potassium 4.0 3.6 (3.6-5.0) mmol/L Chloride 109 H 105 (98-107) mmol/L Carbon Dioxide 20 L 19 L (21-33) mmol/L Anion Gap 14 16 (10-20) BUN 59 H 64 H (7-21) mg/dL Creatinine 4.9 H 5.3 H (0.5-1.4) mg/dL Est GFR ( Amer) 11 10 Est GFR (Non-Af Amer) 9 9 Random Glucose 91 97 (70-110) mg/dL Calcium 9.0 8.8 (8.4-10.5) mg/dL Total Bilirubin 0.5 0.4 (0.2-1.3) mg/dL AST 20 21 (15-39) U/L ALT 16 18 (7-56) U/L Alkaline Phosphatase 42 43 (38-133) U/L Total Protein 7.1 7.3 (5.8-8.3) g/dL Albumin 3.6 3.8 (3.0-4.8) g/dL Globulin 3.4 3.5 gm/dL Albumin/Globulin Ratio 1.1 1.1 (1.1-1.8) U Random Total Protein (21-161) mg/g creat 12/03/16 12/02/16 Range/Units 06:35 16:10 WBC 6.8 (4.5-11.0) 10^3/ul RBC 3.82 (3.5-6.1) 10^6/uL Hgb 11.2 L (12.0-16.0) gm/dL Hct 31.7 L (36.0-48.0) % MCV 83.0 (80.0-105.0) fL MCH 29.3 (25.0-35.0) pg MCHC 35.3 (31.0-37.0) g/dl RDW 14.1 (11.5-14.5) % Plt Count 206 (120.0-450.0) 10^3/uL MPV 12.5 H (7.0-11.0) fl Gran % 58.9 (50.0-68.0) % Lymph % (Auto) 22.5 (22.0-35.0) % Cherry % (Auto) 12.4 H (1.0-6.0) % Eos % (Auto) 5.6 H (1.5-5.0) % Baso % (Auto) 0.6 (0.0-3.0) % Gran # 3.99 (1.4-6.5) Lymph # 1.5 (1.2-3.4) Cherry # 0.8 H (0.1-0.6) Eos # 0.4 (0.0-0.7) Baso # 0.04 (0.0-2.0) K/mm3 Sodium (132-148) mmol/L Potassium (3.6-5.0) mmol/L Chloride (98-107) mmol/L Carbon Dioxide (21-33) mmol/L Anion Gap (10-20) BUN (7-21) mg/dL Creatinine (0.5-1.4) mg/dL Est GFR ( Amer) Est GFR (Non-Af Amer) Random Glucose (70-110) mg/dL Calcium (8.4-10.5) mg/dL Total Bilirubin (0.2-1.3) mg/dL AST (15-39) U/L ALT (7-56) U/L Alkaline Phosphatase (38-133) U/L Total Protein (5.8-8.3) g/dL Albumin (3.0-4.8) g/dL Globulin gm/dL Albumin/Globulin Ratio (1.1-1.8) U Random Total Protein 429 H (21-161) mg/g creat Laboratory Results - last 24 hr 12/02/16 12/03/16 12/03/16 16:10 06:35 06:35 WBC 6.8 RBC 3.82 Hgb 11.2 L Hct 31.7 L MCV 83.0 MCH 29.3 MCHC 35.3 RDW 14.1 Plt Count 206 MPV 12.5 H Gran % 58.9 Lymph % (Auto) 22.5 Cherry % (Auto) 12.4 H Eos % (Auto) 5.6 H Baso % (Auto) 0.6 Gran # 3.99 Lymph # 1.5 Cherry # 0.8 H Eos # 0.4 Baso # 0.04 Sodium 136 Potassium 3.6 Chloride 105 Carbon Dioxide 19 L Anion Gap 16 BUN 64 H Creatinine 5.3 H Est GFR ( Amer) 10 Est GFR (Non-Af Amer) 9 Random Glucose 97 Calcium 8.8 Total Bilirubin 0.4 AST 21 ALT 18 Alkaline Phosphatase 43 Total Protein 7.3 Albumin 3.8 Globulin 3.5 Albumin/Globulin Ratio 1.1 U Random Total Protein 429 H 12/04/16 12/04/16 05:00 05:00 WBC 6.5 RBC 3.69 Hgb 10.8 L Hct 30.9 L MCV 83.7 MCH 29.3 MCHC 35.0 RDW 14.2 Plt Count 203 MPV 12.2 H Gran % 59.3 Lymph % (Auto) 24.0 Cherry % (Auto) 11.9 H Eos % (Auto) 4.5 Baso % (Auto) 0.3 Gran # 3.85 Lymph # 1.6 Cherry # 0.8 H Eos # 0.3 Baso # 0.02 Sodium 139 Potassium 4.0 Chloride 109 H Carbon Dioxide 20 L Anion Gap 14 BUN 59 H Creatinine 4.9 H Est GFR ( Amer) 11 Est GFR (Non-Af Amer) 9 Random Glucose 91 Calcium 9.0 Total Bilirubin 0.5 AST 20 ALT 16 Alkaline Phosphatase 42 Total Protein 7.1 Albumin 3.6 Globulin 3.4 Albumin/Globulin Ratio 1.1 U Random Total Protein Fingerstick Blood Sugar Results: 110 Assessment/Plan - Assessment and Plan (Free Text) Plan: 51 F, with PMHx of uncontrolled HTN, PRES syndrome, sickle cell trait, glaucoma , and CKD was admitted for malignant HTN, ESTEFANI on CKD and UTI. She is in ICU for HTN emergency. yesterday, She was weaned off Cardene. Adjusted PO anti-HTN meds : Labatelol added and Minoxidil dose increased. stop Coreg and Cardura. Goal of SBP appx 160. Overnight SBP ~130-140. No new end organ damage noted. ESTEFANI on CKD improving, urine output adequate. No signs of Uremia or acidosis. No emergent HD necessart. PhEO work up in progress awaiting possible MBIG scan as outpatient. Neuro - A&O x 3 - Maintain normothermia CV: - Current BP regimen: Norvasc 10 mg/day Clonidine patch Hydralazine 50 TID --> change to [address] Romulo Barden Lebatalol 400 BID Minoxidil 5 BID - Cardene drip-weaned off - Start PO Labetolol. With IV PRN - stop Coreg and Cardura and replace with labetolol and also increase minoxidil. - Lasix not recommended due to ESTEFANI - Maintain SBP 160s - Cardio and nephro consult Pulm: - Maintain spO2>92-95% GI: - CT abd/pelvis showed moderate constipation - Miralax and Colace - OOB with assist - Zofran prn /Nephro: - ESTEFANI on CKD - Urine metanephrines elevated at past admit- Awaiting plasma metanephrines - MIBG scan outpatient Endo: - TSH and T4 normal - Consider Endo consult for possible pheochromocytoma - Pending AM cortisol Heme: - Normocytic anemia on oral Iron and Vit D - consider outpatient work up ID: E-coli UTI On Cefepime afebrile, no leukocytosis GI ppx: Pepcid DVT ppx: SCDs Disposition - Call Dr. Valverde to notify transfer to [facility]/awaiting reply s/r/d/w Dr. hamilton - Date & Time Date: 12/04/16 Time: 07:13 <Stephen MOULTON,Inal H - Last Filed: 12/04/16 16:37> CCU Objective - Vital Signs / Intake & Output Vital Signs (Last 4 hours): Vital Signs Pulse Resp BP Pulse Ox 12/04/16 15:05 169/90 H 12/04/16 15:04 79 17 98 12/04/16 15:03 70 43 H 159/92 H 99 12/04/16 15:02 84 191/101 H 12/04/16 15:00 77 20 167/108 H 96 12/04/16 14:50 93 H 12 99 12/04/16 14:40 90 21 97 12/04/16 14:30 87 38 H 98 12/04/16 14:20 92 H 40 H 99 12/04/16 14:10 86 20 100 12/04/16 14:00 81 19 191/101 H 100 12/04/16 13:50 94 H 30 H 98 12/04/16 13:40 88 25 H 96 12/04/16 13:30 88 24 182/96 H 99 12/04/16 13:20 92 H 15 99 12/04/16 13:10 89 48 H 100 12/04/16 13:00 82 26 H 182/96 H 98 12/04/16 12:50 85 50 H 98 12/04/16 12:40 84 30 H 98 Intake and Output (Last 8hrs): Intake & Output 12/04/16 12/04/16 12/04/16 06:59 14:59 22:59 Intake Total 200 Output Total 400 Balance -200 Weight 154 lb Intake: IV 0 Right Antecubital 0 Oral 200 Output: Urine 400 Urine, Voided 400 Other: # Bowel Movements 0 - Medications Active Medications: Active Medications Generic Name Dose Route Start Last Admin Trade Name Freq PRN Reason Stop Dose Admin Acetaminophen 650 mg 12/01/16 16:17 Tylenol 325mg Tab PO Q4H PRN headache Amlodipine Besylate 10 mg 12/01/16 16:30 12/04/16 09:17 Norvasc PO 10 mg DAILY ANNA Administration Cholecalciferol 1,000 iu 12/01/16 16:30 12/04/16 09:14 Vitamin D PO 1,000 iu DAILY ANNA Administration Clonidine HCl 1 patch 12/04/16 15:00 12/04/16 15:02 Catapres-Tts3 0.3 Mg/24 Hr TD 1 patch Q7D@1000 ANNA Administration Diphenhydramine HCl 25 mg 12/02/16 14:42 12/02/16 21:29 Benadryl PO 25 mg HS PRN Administration Insomnia Docusate Sodium 100 mg 12/03/16 10:00 12/04/16 13:31 Colace PO 100 mg TID ANNA Administration Famotidine 40 mg 12/02/16 22:00 12/03/16 22:01 Pepcid PO 40 mg HS ANNA Administration Ferrous Gluconate 324 mg 12/02/16 18:00 12/04/16 13:31 Fergon PO 324 mg TID ANNA Administration Hydralazine HCl 100 mg 12/04/16 13:50 12/04/16 16:33 Apresoline PO Not Given TID ANNA Hydromorphone HCl 0.5 mg 12/01/16 15:12 12/01/16 15:27 Dilaudid IVP 0.5 mg Q6H PRN Administration Pain, severe (8-10) Cefazolin Sodium 1 gm in 100 mls @ 100 mls/hr 12/04/16 10:00 12/04/16 09:13 Ancef 1gm In Ns IVPB 100 mls/hr Q12 ANNA Administration Protocol Labetalol HCl 20 mg 12/03/16 11:20 Trandate IV Q6H PRN Systolic Blood Pressure Labetalol HCl 400 mg 12/03/16 11:51 12/04/16 09:13 Trandate PO 400 mg BID ANNA Administration Minoxidil 5 mg 12/02/16 11:00 12/04/16 09:17 Minoxidil PO 5 mg BID ANNA Administration Ondansetron HCl 4 mg 12/01/16 13:57 Zofran Inj IVP Q4H PRN Nausea/Vomiting Polyethylene Glycol 17 gm 12/02/16 18:00 12/04/16 09:13 Miralax PO 17 gm BID ANNA Administration - Patient Studies Lab Studies: Lab Studies 12/04/16 12/04/16 Range/Units 05:00 05:00 WBC 6.5 (4.5-11.0) 10^3/ul RBC 3.69 (3.5-6.1) 10^6/uL Hgb 10.8 L (12.0-16.0) gm/dL Hct 30.9 L (36.0-48.0) % MCV 83.7 (80.0-105.0) fL MCH 29.3 (25.0-35.0) pg MCHC 35.0 (31.0-37.0) g/dl RDW 14.2 (11.5-14.5) % Plt Count 203 (120.0-450.0) 10^3/uL MPV 12.2 H (7.0-11.0) fl Gran % 59.3 (50.0-68.0) % Lymph % (Auto) 24.0 (22.0-35.0) % Cherry % (Auto) 11.9 H (1.0-6.0) % Eos % (Auto) 4.5 (1.5-5.0) % Baso % (Auto) 0.3 (0.0-3.0) % Gran # 3.85 (1.4-6.5) Lymph # 1.6 (1.2-3.4) Cherry # 0.8 H (0.1-0.6) Eos # 0.3 (0.0-0.7) Baso # 0.02 (0.0-2.0) K/mm3 Sodium 139 (132-148) mmol/L Potassium 4.0 (3.6-5.0) mmol/L Chloride 109 H (98-107) mmol/L Carbon Dioxide 20 L (21-33) mmol/L Anion Gap 14 (10-20) BUN 59 H (7-21) mg/dL Creatinine 4.9 H (0.5-1.4) mg/dL Est GFR ( Amer) 11 Est GFR (Non-Af Amer) 9 Random Glucose 91 (70-110) mg/dL Calcium 9.0 (8.4-10.5) mg/dL Total Bilirubin 0.5 (0.2-1.3) mg/dL AST 20 (15-39) U/L ALT 16 (7-56) U/L Alkaline Phosphatase 42 (38-133) U/L Total Protein 7.1 (5.8-8.3) g/dL Albumin 3.6 (3.0-4.8) g/dL Globulin 3.4 gm/dL Albumin/Globulin Ratio 1.1 (1.1-1.8) Laboratory Results - last 24 hr 12/04/16 12/04/16 05:00 05:00 WBC 6.5 RBC 3.69 Hgb 10.8 L Hct 30.9 L MCV 83.7 MCH 29.3 MCHC 35.0 RDW 14.2 Plt Count 203 MPV 12.2 H Gran % 59.3 Lymph % (Auto) 24.0 Cherry % (Auto) 11.9 H Eos % (Auto) 4.5 Baso % (Auto) 0.3 Gran # 3.85 Lymph # 1.6 Cherry # 0.8 H Eos # 0.3 Baso # 0.02 Sodium 139 Potassium 4.0 Chloride 109 H Carbon Dioxide 20 L Anion Gap 14 BUN 59 H Creatinine 4.9 H Est GFR ( Amer) 11 Est GFR (Non-Af Amer) 9 Random Glucose 91 Calcium 9.0 Total Bilirubin 0.5 AST 20 ALT 16 Alkaline Phosphatase 42 Total Protein 7.1 Albumin 3.6 Globulin 3.4 Albumin/Globulin Ratio 1.1 Attending/Attestation - Attestation I have personally seen and examined this patient.: Yes I have fully participated in the care of the patient.: Yes I have reviewed all pertinent clinical information: Yes Notes (Text): 12/04/16 16:35 51 y/o F w/ HTN emergency w/ malignant HTN Currently has been off Cardene x 24 hrs. On multiple medications including a new Clodine patch + clonidine .1 x1, labatelol, norvasc and hydralazine. Plan to keep sbp 160-180 due to lightneadedness if BP drops any lower. Work up for PHEO continues . No new end organ damage noted. NO HD yet, continues to make urine ouput and no uremia. plan to tx to Telemetry later today. cc time 55 min
[2016-12-04] MEDS: POLYETHYLENE GLYCOL 3350 17 GM/Dose PACKET PO SCH ×2 (09:13→17:08)
[2016-12-04] MEDS: ceFAZolin 1 gm in NS 1 GM/100 ML BAG IVPB SCH ×2 (09:13→22:32)
--- NOTE | 2016-12-04 12:37 | CP.PCM.PN ---
Subjective - Date & Time of Evaluation Date of Evaluation: 12/04/16 Time of Evaluation: 12:34 - Subjective Subjective: seen and examined no complaints feels ok today Objective - Vital Signs/Intake and Output Vital Signs (last 24 hours): Temp Pulse Resp BP Pulse Ox 98.2 F 96 H 15 171/93 H 100 12/04/16 08:00 12/04/16 09:17 12/04/16 08:00 12/04/16 09:17 12/04/16 08:00 Intake and Output: 12/04/16 12/04/16 06:59 18:59 Intake Total 200 Output Total 400 Balance -200 - Medications Medications: Current Medications Acetaminophen (Tylenol 325mg Tab) 650 mg PO Q4H PRN PRN Reason: headache Amlodipine Besylate (Norvasc) 10 mg PO DAILY [facility] Last Admin: 12/04/16 09:17 Dose: 10 mg Cholecalciferol (Vitamin D) 1,000 iu PO DAILY [facility] Last Admin: 12/04/16 09:14 Dose: 1,000 iu Clonidine HCl (Catapres-Tts3 0.3 Mg/24 Hr) 1 patch TD Q7D@1000 [facility] Last Admin: 12/01/16 20:52 Dose: 1 patch Diphenhydramine HCl (Benadryl) 25 mg PO HS PRN PRN Reason: Insomnia Last Admin: 12/02/16 21:29 Dose: 25 mg Docusate Sodium (Colace) 100 mg PO TID [facility] Last Admin: 12/04/16 09:17 Dose: 100 mg Famotidine (Pepcid) 40 mg PO HS [facility] Last Admin: 12/03/16 22:01 Dose: 40 mg Ferrous Gluconate (Fergon) 324 mg PO TID [facility] Last Admin: 12/04/16 09:17 Dose: 324 mg Hydralazine HCl (Apresoline) 50 mg PO TID [facility] Last Admin: 12/04/16 09:17 Dose: 50 mg Hydromorphone HCl (Dilaudid) 0.5 mg IVP Q6H PRN PRN Reason: Pain, severe (8-10) Last Admin: 12/01/16 15:27 Dose: 0.5 mg Cefazolin Sodium (Ancef 1gm In Ns) 1 gm in 100 mls @ 100 mls/hr IVPB Q12 ANNA PRN Reason: Protocol Last Admin: 12/04/16 09:13 Dose: 100 mls/hr Labetalol HCl (Trandate) 20 mg IV Q6H PRN PRN Reason: Systolic Blood Pressure Labetalol HCl (Trandate) 400 mg PO BID [facility] Last Admin: 12/04/16 09:13 Dose: 400 mg Minoxidil (Minoxidil) 5 mg PO BID [facility] Last Admin: 12/04/16 09:17 Dose: 5 mg Ondansetron HCl (Zofran Inj) 4 mg IVP Q4H PRN PRN Reason: Nausea/Vomiting Polyethylene Glycol (Miralax) 17 gm PO BID [facility] Last Admin: 12/04/16 09:13 Dose: 17 gm - Labs Labs: 12/04/16 05:00 12/04/16 05:00 PT 10.7 Seconds (9.9-11.8) 12/01/16 10:21 INR 0.99 (0.93-1.08) 12/01/16 10:21 APTT 29.4 Seconds (23.7-30.8) 12/01/16 10:21 - Constitutional Appears: Non-toxic - Head Exam Head Exam: ATRAUMATIC - Eye Exam Eye Exam: EOMI, Normal appearance - ENT Exam ENT Exam: Normal Exam - Neck Exam Neck Exam: Normal Inspection - Respiratory Exam Respiratory Exam: NORMAL BREATHING PATTERN - Cardiovascular Exam Cardiovascular Exam: +S1, +S2 - GI/Abdominal Exam GI & Abdominal Exam: Normal Bowel Sounds - Extremities Exam Additional comments: no edema - Back Exam Back Exam: NORMAL INSPECTION - Neurological Exam Neurological Exam: Alert, Oriented x3 - Psychiatric Exam Psychiatric exam: Normal Affect, Normal Mood - Skin Skin Exam: Normal Color Assessment and Plan - Assessment and Plan (Free Text) Assessment: Assessment: HTN chronic kidney disease (N12.9) Acute Kidney Injury (N17.9) likely due to HTN emergency Chronic Kidney Disease Stage 4 (N18.4) with 429 mg proteinuria likely due to HTN vitamin D with Secondary hyperparathyroidism (E21.1), uncontrolled severe Hypertension with emergency Plan ESTEFANI improving HTN recc inc hydralazine to 100 tid secondary work up so far neg - renal aa doppler, renin/peri previously not suggestive (as renin was high), and plasma metanephrine in past very mildly elevated but not to levels to suggest pheo. Would recc reordering this admission renin/peri and plasma metanephrines to make sure no changes continue vit d
--- NOTE | 2016-12-04 12:59 | CP.PCM.PN ---
Subjective - Date & Time of Evaluation Date of Evaluation: 12/04/16 Time of Evaluation: 10:10 - Subjective Subjective: Comfortable in bed, not in distress, afebrile. Objective - Vital Signs/Intake and Output Vital Signs (last 24 hours): Temp Pulse Resp BP Pulse Ox 98.7 F 76 23 141/74 99 12/04/16 04:00 12/04/16 04:30 12/04/16 04:30 12/04/16 04:00 12/04/16 04:30 - Medications Medications: Current Medications Acetaminophen (Tylenol 325mg Tab) 650 mg PO Q4H PRN PRN Reason: headache Amlodipine Besylate (Norvasc) 10 mg PO DAILY [facility] Last Admin: 12/03/16 09:40 Dose: 10 mg Cholecalciferol (Vitamin D) 1,000 iu PO DAILY [facility] Last Admin: 12/03/16 09:40 Dose: 1,000 iu Clonidine HCl (Catapres-Tts3 0.3 Mg/24 Hr) 1 patch TD Q7D@1000 [facility] Last Admin: 12/01/16 20:52 Dose: 1 patch Diphenhydramine HCl (Benadryl) 25 mg PO HS PRN PRN Reason: Insomnia Last Admin: 12/02/16 21:29 Dose: 25 mg Docusate Sodium (Colace) 100 mg PO TID [facility] Last Admin: 12/03/16 17:23 Dose: 100 mg Famotidine (Pepcid) 40 mg PO HS [facility] Last Admin: 12/03/16 22:01 Dose: 40 mg Ferrous Gluconate (Fergon) 324 mg PO TID [facility] Last Admin: 12/03/16 17:23 Dose: 324 mg Hydralazine HCl (Apresoline) 50 mg PO TID [facility] Last Admin: 12/03/16 15:16 Dose: 50 mg Hydromorphone HCl (Dilaudid) 0.5 mg IVP Q6H PRN PRN Reason: Pain, severe (8-10) Last Admin: 12/01/16 15:27 Dose: 0.5 mg Cefazolin Sodium (Ancef 1gm In Ns) 1 gm in 100 mls @ 100 mls/hr IVPB Q12 ANNA PRN Reason: Protocol Labetalol HCl (Trandate) 20 mg IV Q6H PRN PRN Reason: Systolic Blood Pressure Labetalol HCl (Trandate) 400 mg PO BID [facility] Last Admin: 12/03/16 17:22 Dose: 400 mg Minoxidil (Minoxidil) 5 mg PO BID [facility] Last Admin: 12/03/16 18:19 Dose: 5 mg Ondansetron HCl (Zofran Inj) 4 mg IVP Q4H PRN PRN Reason: Nausea/Vomiting Polyethylene Glycol (Miralax) 17 gm PO BID [facility] Last Admin: 12/03/16 17:24 Dose: 17 gm - Labs Labs: 12/04/16 05:00 12/04/16 05:00 PT 10.7 Seconds (9.9-11.8) 12/01/16 10:21 INR 0.99 (0.93-1.08) 12/01/16 10:21 APTT 29.4 Seconds (23.7-30.8) 12/01/16 10:21 - Constitutional Appears: Non-toxic, No Acute Distress - Head Exam Head Exam: NORMAL INSPECTION - Neck Exam Neck Exam: absent: Meningismus - Respiratory Exam Respiratory Exam: Decreased Breath Sounds - Cardiovascular Exam Cardiovascular Exam: +S1, +S2 - GI/Abdominal Exam GI & Abdominal Exam: Soft. absent: Tenderness Assessment and Plan - Assessment and Plan (Free Text) Plan: Assessment Urinary tract infection with E. coli history of hypertensive urgency with associated Posterior Reversible Encephalopathy Syndrome (PRES) S/P sepsis from urinary tract infection with E. coli HTN, poorly-controlled history of glaucoma history of cataracts sickle cell trait S/P Caesarian section obesity with BMI 31 Plan switch Merrem to Cefazolin (day 2) since the E. coli is sensitive to it and will target 7-10 days of therapy Will continue to monitor clinically
--- NOTE | 2016-12-04 14:16 | PN ---
DATE: 12/04/2016 SUBJECTIVE: The patient denies any chest pain. She has good urinary output. No reported ventricula r arrhythmia, except for frequent PVCs. PHYSICAL EXAMINATION: VITAL SIGNS: Blood pressure 182/96, heart rate 94, temperature 98.2, respirations 15. HEENT: Pale conjunctivae. CHEST: Clear. HEART: S1, S2 regular. EXTREMITIES: No edema. LABORATORIES: Hemoglobin and hematocrit 10.8 and 30.9, white count and platelet count 6.5 and 203,00 0. SMA-7: Sodium 139, potassium 4.2, chloride 109, CO2 of 20, glucose 91, BUN 59, creatinine 4.9. HIV antibody 1 and 2 are nonreactive. ASSESSMENT: 1. Chronic renal insufficiency, which revealed some improvement. 2. Cardiomyopathy. 3. Uncontrolled hypertension. 4. Cannabinoid abuse. RECOMMENDATIONS: Continue Ancef at 1 g intravenously q. 12 hours, hydralazine 50 mg t.i.d., clonidin e patch 0.3 mg weekly, Dilaudid 0.5 mg intravenously q. 6 hours, Minoxidil 5 mg twice a day, Norvasc 10 mg once a day, Labetalol 400 mg twice a day, as well as Lipitor 20 mg intravenously q. 6 hours p.r .n. The case was discussed with medical team in ICU. The patient can be transferred to telemetry. Misael Carson MD cc: [id number] TT: 12/04/2016 14:15:22 Confirmation # [id number] Dictation # [id number]
--- NOTE | 2016-12-04 18:47 | PN ---
DATE: 12/04/2016 SUBJECTIVE: The patient was seen and examined in her bed. The youngest daughter was sitting on the bedside. Feeling better. Abdominal pain is better. No nausea, vomiting, or diarrhea. No hematuria or hematochezia. No swelling of the leg. No chest pain, no palpitation. No headache, no dizziness . PHYSICAL EXAMINATION: VITAL SIGNS: Temperature 98.7, pulse 76, respiratory rate 22, blood pressure 140/74, and pulse oxime try 99. HEENT: Head normocephalic, atraumatic. Eyes PERRLA. EOMs intact. Conjunctivae are clear. Nose pa tent. Mucous membranes moist. NECK: Supple. No carotid bruit, JVD or thyromegaly. CHEST: Bilaterally symmetrical. HEART: S1, S2 positive. LUNGS: Clear to auscultation. ABDOMEN: Soft. Bowel sounds present. No organomegaly. EXTREMITIES: No edema, no cyanosis. NEUROLOGIC: The patient is awake, alert, moving all 4 extremities. No focal deficits. MEDICATIONS: Tylenol, Norvasc, vitamin D, Catapres, Benadryl, Colace, Pepcid, fergon, hydralazine, D ilaudid, Ancef, labetalol, minoxidil, Zofran, MiraLax. LABORATORY DATA: White blood cells 6.5, hemoglobin 10.8, hematocrit 30.9, white blood cells 203. So dium 139, potassium 4.0, BUN 59, creatinine 4.9, glucose 91. ASSESSMENT AND PLAN: The patient is a 51-year-old lady with anemia with renal insufficiency improvin g, hyperchloremia, came with urinary tract infection with Escherichia coli, history of hypertension u rgency with associated posterior reversible encephalopathy syndrome, sepsis from urinary tract infe ction, history of glaucoma, history of cataract, sickle cell trait, status post sections, ob esity. Dr. Vance changed Merrem to cefazolin day 2, says E. coli sensitive to it and target is 7-10 days of cefazolin. Continue monitoring blood pressure. Out of bed, physical therapy, seen by Dr. Jacob messer night shift, assistant business manager Dr. Sergio Braden. The patient has acute kidney injury on the [facility] kidney disease stage IV. Acute kidney injury is improving. Dr. Braden added hydralazine 100 mg 3 times a day. Secondary workup so far is negative. Gastrointestinal and deep vein thrombosis proph ylaxis. We will follow up. Karli Laureano MD cc: [id number] TT: 12/04/2016 18:46:32 Confirmation # [id number] Dictation # [id number]
[2016-12-05] MEDS: POLYETHYLENE GLYCOL 3350 17 GM/Dose PACKET PO SCH ×3 (09:12→17:35)
[2016-12-05] MEDS: ceFAZolin 1 gm in NS 1 GM/100 ML BAG IVPB SCH ×2 (09:13→21:43)
--- NOTE | 2016-12-05 15:48 | PN ---
DATE: 12/05/2016 SUBJECTIVE: The patient was seen and examined on the bedside, looks comfortable. Last night could not sleep because she refused her Benadryl. Wants some sleep medication. Abdominal pain is better. No nausea, vomiting, or diarrhea. No hematuria or hematochezia. No swelling of the leg. No chest pain, no palpitation. PHYSICAL EXAMINATION: VITAL SIGNS: Temperature 98, pulse 57, blood pressure 154/95, respiratory rate 20. HEAD: Atraumatic. EYES: PERRLA. Extraocular movements intact. Conjunctivae are clear. Nose patent. Mucous membranes moist. NECK: Supple. No carotid bruit, JVD or thyromegaly. CHEST: Bilaterally symmetrical. HEART: S1, S2 positive. LUNGS: Clear to auscultation. ABDOMEN: Soft. Bowel sounds positive. No organomegaly. EXTREMITIES: No edema, no cyanosis. NEUROLOGIC: The patient is awake, alert, moving all 4 extremities. No focal deficits. MEDICATIONS: Ambien, Ancef, hydralazine, Benadryl, Catapres, Colace, Dilaudid, ferrous gluconate, minoxidil, MiraLax, Norvasc, Pepcid, labetalol, trandate, Tylenol, vitamin D, Zofran. LABORATORY DATA: White blood cells 6.5, hemoglobin 10.8, hematocrit 30.9, platelets 203. Sodium 139, potassium 4.0, BUN 59, creatinine is 4.9. ASSESSMENT AND PLAN: The patient is a 51-year-old female with anemia, hyperchloremia, renal insufficiency, improving slowly, proteinuria, urinary tract infection, microalbuminuria, drug screening positive for opiates and cannabinoid, human immunodeficiency virus nonreactive, hypertension, chronic kidney disease, acute injury on chronic, likely due to hypertension emergency, kidney disease stage 4 with proteinuria, likely due to hypertension, vitamin D deficiency, hyperparathyroidism. Acute kidney is improving, hypertension is improving. Dr. Braden added hydralazine 100 mg 3 times a day. Drug screening positive. Will talk to the patient and family to work on that. Cardiomyopathy. Continue Ancef for urinary tract infection, hydralazine, Dilaudid, minoxidil. Insomnia. Tried to give patient melatonin, but hospital is not carrying melatonin. Gave Ambien 1 dose today. We will check on that. Continue present treatment. Repeat labs. We will follow up. Karli Laureano MD cc: [id number] TT: 12/05/2016 15:47:52 Confirmation # [id number] Dictation # [id number] MTDD
--- NOTE | 2016-12-05 15:48 | PN ---
DATE: 12/05/2016 SUBJECTIVE: The patient denies any dizziness, chest pain or shortness of breath. She is ambulatory in her room. PHYSICAL EXAMINATION: VITAL SIGNS: Blood pressure 171/99, heart rate 81, temperature 98, respirations 20. HEENT: Normocephalic. NECK: No JVD. CHEST: Clear. HEART: S1, S2 regular. EXTREMITIES: No edema. LABORATORIES: No lab work posted for today. ASSESSMENT: 1. Uncontrolled hypertension. 2. Chronic renal insufficiency. 3. Cannabinoid abuse. 4. Systolic heart failure. RECOMMENDATIONS: Continue minoxidil at 5 mg p.o. twice a day, Norvasc 10 mg once a day, labetalol 40 0 mg twice a day, hydralazine at 100 mg t.i.d., clonidine patch and start hydrochlorothiazide at 25 m g orally once a day. Misael Carson MD cc: [id number] TT: 12/05/2016 15:47:06 Confirmation # [id number] Dictation # [id number]
--- NOTE | 2016-12-06 01:01 | CP.PCM.PN ---
Subjective - Date & Time of Evaluation Date of Evaluation: 12/06/16 Time of Evaluation: 01:00 - Subjective Subjective: Nurse calls and tells that patient has chest pain. EKG,trop,SL NTG and Oxygen were ordered. I came to see patient, seen in [id number]. She complains of precordial chest pain,little sob, nausea,palpitations.Chest pain like heaviness, no radiation. Denies sweating, cough. This 51 year old woman was admitted with Has PMH of HTN, CKD stage IV, blindness, cataract, , right eye surgery Objective - Vital Signs/Intake and Output Vital Signs (last 24 hours): Temp Pulse Resp BP Pulse Ox 98.8 F 92 H 20 122/74 100 12/06/16 00:20 12/06/16 00:55 12/06/16 00:43 12/06/16 00:55 12/06/16 00:43 Intake and Output: 12/05/16 12/06/16 18:59 06:59 Intake Total 670 Balance 670 - Medications Medications: Current Medications Acetaminophen (Tylenol 325mg Tab) 650 mg PO Q4H PRN PRN Reason: headache Amlodipine Besylate (Norvasc) 10 mg PO DAILY [facility] Last Admin: 12/05/16 09:17 Dose: 10 mg Cholecalciferol (Vitamin D) 1,000 iu PO DAILY [facility] Last Admin: 12/05/16 09:13 Dose: 1,000 iu Clonidine HCl (Catapres-Tts3 0.3 Mg/24 Hr) 1 patch TD Q7D@1000 [facility] Last Admin: 12/04/16 15:02 Dose: 1 patch Diphenhydramine HCl (Benadryl) 25 mg PO HS PRN PRN Reason: Insomnia Last Admin: 12/02/16 21:29 Dose: 25 mg Docusate Sodium (Colace) 100 mg PO TID [facility] Last Admin: 12/05/16 17:31 Dose: Not Given Famotidine (Pepcid) 40 mg PO HS [facility] Last Admin: 12/05/16 21:51 Dose: 40 mg Ferrous Gluconate (Fergon) 324 mg PO TID [facility] Last Admin: 12/05/16 17:29 Dose: 324 mg Hydralazine HCl (Apresoline) 100 mg PO TID [facility] Last Admin: 12/05/16 17:31 Dose: 100 mg Hydrochlorothiazide (Hydrodiuril) 25 mg PO DAILY [facility] Last Admin: 12/05/16 17:29 Dose: 25 mg Hydromorphone HCl (Dilaudid) 0.5 mg IVP Q6H PRN PRN Reason: Pain, severe (8-10) Last Admin: 12/01/16 15:27 Dose: 0.5 mg Cefazolin Sodium (Ancef 1gm In Ns) 1 gm in 100 mls @ 100 mls/hr IVPB Q12 ANNA PRN Reason: Protocol Last Admin: 12/05/16 21:43 Dose: Not Given Labetalol HCl (Trandate) 20 mg IV Q6H PRN PRN Reason: Systolic Blood Pressure Labetalol HCl (Trandate) 400 mg PO BID [facility] Last Admin: 12/05/16 17:30 Dose: 400 mg Minoxidil (Minoxidil) 5 mg PO BID [facility] Last Admin: 12/05/16 17:29 Dose: 5 mg Ondansetron HCl (Zofran Inj) 4 mg IVP Q4H PRN PRN Reason: Nausea/Vomiting Polyethylene Glycol (Miralax) 17 gm PO BID [facility] Last Admin: 12/05/16 17:35 Dose: Not Given Zolpidem Tartrate (Ambien) 5 mg PO HS PRN; Protocol PRN Reason: Insomnia Last Admin: 12/05/16 21:50 Dose: 5 mg - Labs Labs: 12/04/16 05:00 12/04/16 05:00 PT 10.7 Seconds (9.9-11.8) 12/01/16 10:21 INR 0.99 (0.93-1.08) 12/01/16 10:21 APTT 29.4 Seconds (23.7-30.8) 12/01/16 10:21 - Constitutional Appears: Well, No Acute Distress - Head Exam Head Exam: ATRAUMATIC, NORMAL INSPECTION, NORMOCEPHALIC - Eye Exam Eye Exam: Normal appearance - ENT Exam ENT Exam: Mucous Membranes Moist, Normal External Ear Exam - Neck Exam Neck Exam: Normal Inspection - Respiratory Exam Respiratory Exam: Chest Wall Tenderness (Precordial tenderness positive.) - Cardiovascular Exam Cardiovascular Exam: REGULAR RHYTHM, +S1 (Normal.), +S2 (Normal.). absent: JVD - GI/Abdominal Exam GI & Abdominal Exam: absent: Distended - Rectal Exam Rectal Exam: Deferred - Extremities Exam Extremities Exam: Normal Inspection - Back Exam Back Exam: NORMAL INSPECTION - Neurological Exam Neurological Exam: Alert, Oriented x3 - Psychiatric Exam Psychiatric exam: Normal Affect, Normal Mood - Skin Skin Exam: Normal Color Assessment and Plan - Assessment and Plan (Free Text) Assessment: Chest pain.ACS. Musculo-skeletal chest pain. PVC's. HTN. CKD IV. Plan: EKG ---------------> NSR, PVCs' , st t changes. similar to last EKG on record from 12/01/16. Troponin stat. NTG sublingually 0.4 mg Q5M x 3, Did not help relieve chest pain. Zofran 4 mg IV stat. # 22 angiocath was inserted in rigth forearm. Discussed with . Will transfer to telemetry. Tylenol 650 mg PO stat.
[2016-12-06] MEDS ORDERED: ceFAZolin 1 gm in NS 1 GM/100 ML BAG IVPB STA (02:48)
[2016-12-06] MEDS ORDERED: Heparin25000 units/250ml 1/2NS 250 ML IV ONE (03:06)
[2016-12-06] MEDS ORDERED: Nitroglycerin 50mg in D5W 50 MG/250 ML BOTTLE IV PRN (03:11)
[2016-12-06] MEDS ORDERED: Aspirin 325 mg EC Tablets PO STA (03:14)
[2016-12-06 03:31] LABS: ADD MANUAL DIFF? NO
[2016-12-06 03:40] LABS: BASO # 0.03 K/mm3 (0.0-2.0); BASO % 0.5 % (0.0-3.0); EOS # 0.1 (0.0-0.7); EOS % 2.1 % (1.5-5.0); GRAN # 4.33 (1.4-6.5); GRAN % 66.4 % (50.0-68.0); HEMATOCRIT 25.8 % (36.0-48.0); LYMPH # 1.4 (1.2-3.4); LYMPH % 21.5 % (22.0-35.0); MEAN CELL VOLUME 83.2 fL (80.0-105.0); MEAN CORPUSCULAR HEMOGLOBIN 29.4 pg (25.0-35.0); MEAN CORPUSCULAR HGB CONC 35.3 g/dl (31.0-37.0); MEAN PLATELET VOLUME 12.1 fl (7.0-11.0); MONO # 0.6 (0.1-0.6); MONO % 9.5 % (1.0-6.0); PLATELET COUNT 173 10^3/uL (120.0-450.0); RED CELL DISTRIBUTION WIDTH 14.4 % (11.5-14.5); WHITE BLOOD COUNT 6.5 10^3/ul (4.5-11.0)
[2016-12-06] MEDS: Heparin25000 units/250ml 1/2NS 25,000 UNITS/250 ML BAG IV SCH (04:10)
--- NOTE | 2016-12-06 06:36 | CP.PCM.CON ---
History of Present Illness - History of Present Illness History of Present Illness: The patient is a 51 year old AAF with recently diagnosed ESRD (not on HD), who was originally admitted to the ICU on 12/02/16 for malignant HTN requiring cardiazem drip. Once weaned off of the Cardiazem drip, she was downgraded to on 12/04/16 for further work-up and management of her medical problems. Overnight, she suddenly developed acute sub-sternal, non-radiating chest pain. As a result , the house doctor (Dr. Ramiro Rosario) ordered stat EKG and troponin. Although her EKG was largely unchanged from previous, her troponin was elevated at 0.40. Consequently, Dr. Rosario spoke with on-call post acute care nurse Dr. Love and per his recommendations the patient is now being upgraded back to the ICU for NSTEMI management. She was briefly also stated on Nitro drip which has been weaned off. Review of Systems - Review of Systems All systems: reviewed and no additional remarkable complaints except - Constitutional Constitutional: As Per HPI - EENT Eyes: As Per HPI - Cardiovascular Cardiovascular: As Per HPI - Respiratory Respiratory: As Per HPI - Gastrointestinal Gastrointestinal: As Per HPI - Neurological Neurological: As Per HPI Past Patient History - Infectious Disease Hx of Infectious Diseases: None - Past Medical History & Family History Past Medical History?: Yes - Past Social History Smoking Status: Former Smoker Drugs: Cannabis - CARDIAC Hx Cardiac Disorders: Yes Hx Hypertension: Yes - PULMONARY Hx Respiratory Disorders: Yes (SMOKED CIGARETTES QUIT.) - NEUROLOGICAL Hx Neurological Disorder: No - HEENT Hx HEENT Problems: Yes Hx Blind: Yes Hx Cataracts: Yes Hx Glaucoma: Yes Other/Comment: LEFT EYE SURGERY - RENAL Hx Chronic Kidney Disease: Yes Hx Renal Failure: Yes (STAGE 4 ARF) - ENDOCRINE/METABOLIC Hx Endocrine Disorders: Yes - HEMATOLOGICAL/ONCOLOGICAL Hx Blood Disorders: No (SICKLE CELL TRAIT) Hx Sickle Cell Disease: Yes - INTEGUMENTARY Hx Dermatological Problems: No - MUSCULOSKELETAL/RHEUMATOLOGICAL Hx Musculoskeletal Disorders: No Hx Falls: No - GASTROINTESTINAL Hx Gastrointestinal Disorders: Yes (CONSTIPATION) - GENITOURINARY/GYNECOLOGICAL Hx Genitourinary Disorders: Yes (C/S X 4) - PSYCHIATRIC Hx Psychophysiologic Disorder: Yes (SMOKED CIGARETTES,ETOH USE.H/O) Hx Depression: No Hx Emotional Abuse: No Hx Physical Abuse: No Hx Substance Use: No - SURGICAL HISTORY Hx Surgeries: Yes (CEASEREAN X 4,LEFT EYE SURGERY) - ANESTHESIA Hx Anesthesia: Yes Hx Anesthesia Reactions: No Hx Malignant Hyperthermia: No Meds Allergies/Adverse Reactions: Allergies Allergy/AdvReac Type Severity Reaction Status Date / Time No Known Allergies Allergy Verified 12/01/16 16:46 - Medications Medications: Current Medications Acetaminophen (Tylenol 325mg Tab) 650 mg PO Q4H PRN PRN Reason: headache Amlodipine Besylate (Norvasc) 10 mg PO DAILY [facility] Last Admin: 12/05/16 09:17 Dose: 10 mg Cholecalciferol (Vitamin D) 1,000 iu PO DAILY [facility] Last Admin: 12/05/16 09:13 Dose: 1,000 iu Clonidine HCl (Catapres-Tts3 0.3 Mg/24 Hr) 1 patch TD Q7D@1000 [facility] Last Admin: 12/04/16 15:02 Dose: 1 patch Diphenhydramine HCl (Benadryl) 25 mg PO HS PRN PRN Reason: Insomnia Last Admin: 12/02/16 21:29 Dose: 25 mg Docusate Sodium (Colace) 100 mg PO TID [facility] Last Admin: 12/05/16 17:31 Dose: Not Given Famotidine (Pepcid) 40 mg PO HS [facility] Last Admin: 12/05/16 21:51 Dose: 40 mg Ferrous Gluconate (Fergon) 324 mg PO TID [facility] Last Admin: 12/05/16 17:29 Dose: 324 mg Hydralazine HCl (Apresoline) 100 mg PO TID [facility] Last Admin: 12/05/16 17:31 Dose: 100 mg Hydrochlorothiazide (Hydrodiuril) 25 mg PO DAILY [facility] Last Admin: 12/05/16 17:29 Dose: 25 mg Hydromorphone HCl (Dilaudid) 0.5 mg IVP Q6H PRN PRN Reason: Pain, severe (8-10) Last Admin: 12/01/16 15:27 Dose: 0.5 mg Cefazolin Sodium (Ancef 1gm In Ns) 1 gm in 100 mls @ 100 mls/hr IVPB Q12 ANNA PRN Reason: Protocol Last Admin: 12/05/16 21:43 Dose: Not Given Nitroglycerin/Dextrose (Nitroglycerin 50 Mg/250 Ml D5w) 50 mg in 250 mls @ 1.5 mls/hr IV .Q24H PRN; Protocol; 5 MCG/MIN PRN Reason: chest pain Heparin Sodium/Sodium Chloride (Heparin 20132 Units/250ml 1/2 Normal Saline) 25 ,000 units in 250 mls @ 8.382 mls/hr IV .Q24H ANNA; 12 UNITS/KG/HR PRN Reason: Protocol Last Admin: 12/06/16 04:10 Dose: 12 units/kg/hr, 8.382 mls/hr Labetalol HCl (Trandate) 20 mg IV Q6H PRN PRN Reason: Systolic Blood Pressure Labetalol HCl (Trandate) 400 mg PO BID [facility] Last Admin: 12/05/16 17:30 Dose: 400 mg Minoxidil (Minoxidil) 5 mg PO BID [facility] Last Admin: 12/05/16 17:29 Dose: 5 mg Ondansetron HCl (Zofran Inj) 4 mg IVP Q4H PRN PRN Reason: Nausea/Vomiting Last Admin: 12/06/16 01:19 Dose: 4 mg Polyethylene Glycol (Miralax) 17 gm PO BID [facility] Last Admin: 12/05/16 17:35 Dose: Not Given Zolpidem Tartrate (Ambien) 5 mg PO HS PRN; Protocol PRN Reason: Insomnia Last Admin: 12/05/16 21:50 Dose: 5 mg Physical Exam - Constitutional Additional comments: No acute distress; A&Ox4 - Head Exam Head Exam: ATRAUMATIC, NORMAL INSPECTION, NORMOCEPHALIC - Eye Exam Eye Exam: EOMI, PERRL Pupil Exam: NORMAL ACCOMODATION - ENT Exam ENT Exam: Mucous Membranes Moist, Normal Exam - Neck Exam Neck exam: Positive for: Normal Inspection - Respiratory Exam Respiratory Exam: Clear to Auscultation Bilateral, NORMAL BREATHING PATTERN - Cardiovascular Exam Cardiovascular Exam: REGULAR RHYTHM - GI/Abdominal Exam GI & Abdominal Exam: Normal Bowel Sounds, Soft. absent: Tenderness - Rectal Exam Rectal Exam: Deferred - Extremities Exam Extremities exam: Positive for: normal inspection - Neurological Exam Additional comments: Grossly normal neuro exam Results - Vital Signs Recent Vital Signs: Last Vital Signs Temp 98.8 F 12/06/16 00:20 Pulse 94 H 12/06/16 01:05 Resp 20 12/06/16 00:43 BP 132/64 12/06/16 01:05 Pulse Ox 100 12/06/16 00:43 - Labs Result Diagrams: 12/06/16 03:25 12/06/16 06:35 Labs: Laboratory Results - last 24 hr 12/06/16 12/06/16 12/06/16 00:35 03:25 03:25 WBC 6.5 RBC 3.10 L Hgb 9.1 L Hct 25.8 L MCV 83.2 MCH 29.4 MCHC 35.3 RDW 14.4 Plt Count 173 MPV 12.1 H Gran % 66.4 Lymph % (Auto) 21.5 L Tompkins % (Auto) 9.5 H Eos % (Auto) 2.1 Baso % (Auto) 0.5 Gran # 4.33 Lymph # 1.4 Tompkins # 0.6 Eos # 0.1 Baso # 0.03 APTT 29.0 Troponin I 0.40 H* D Assessment & Plan - Assessment and Plan (Free Text) Assessment: A/P: The patient is a 51 year old AAF with history of malignant HTN and recently diagnosed CKD (not on HD), who is being upgraded to the ICU this morning due to NSTEMI. 1. NSTEMI: -will continue to trend serial troponins and EKG's -continue Heparin drip, Plavix and ASA started already by house physician -will keep NPO for possible cardiac cath in AM -Nitro drip has been weaned off already -follow-up further cardiology consult recommendations later this morning 2. Malignant HTN: -continue with Pheochromocytoma work-up (already in progress) -BP now controlled -as a result, will continue with the same maintenance regimen 3. CKD: -follow-up nephrology recommendations -monitor strict I/O's -renally dose all meds and avoid nephrotoxic meds DVT PPx: patient on Heparin drip GI PPx: Protonix
[2016-12-06 07:00] LABS: ALB/GLOB RATIO 1.1 (1.1-1.8); BILIRUBIN,TOTAL 0.5 mg/dL (0.2-1.3); CALCIUM 9.5 mg/dL (8.4-10.5); POTASSIUM 3.8 mmol/L (3.6-5.0); TOTAL PROTEIN 7.2 g/dL (5.8-8.3)
[2016-12-06 07:49] LABS: TROPONIN I 0.35 ng/mL
[2016-12-06 09:53] LABS: ADD MANUAL DIFF? NO
[2016-12-06] MEDS ORDERED: Darbepoetin Alfa 40 mcg/ml Inj SC ONE (09:58)
[2016-12-06] MEDS: POLYETHYLENE GLYCOL 3350 17 GM/Dose PACKET PO SCH ×2 (10:02→18:01)
[2016-12-06] MEDS: ceFAZolin 1 gm in NS 1 GM/100 ML BAG IVPB SCH ×2 (10:02→22:34)
[2016-12-06 10:03] LABS: BASO # 0.02 K/mm3 (0.0-2.0); BASO % 0.3 % (0.0-3.0); EOS # 0.1 (0.0-0.7); EOS % 1.9 % (1.5-5.0); GRAN # 4.93 (1.4-6.5); GRAN % 70.5 % (50.0-68.0); HEMATOCRIT 27.6 % (36.0-48.0); LYMPH # 1.3 (1.2-3.4); LYMPH % 17.9 % (22.0-35.0); MEAN CELL VOLUME 83.4 fL (80.0-105.0); MEAN CORPUSCULAR HEMOGLOBIN 29.3 pg (25.0-35.0); MEAN CORPUSCULAR HGB CONC 35.1 g/dl (31.0-37.0); MEAN PLATELET VOLUME 11.9 fl (7.0-11.0); MONO # 0.7 (0.1-0.6); MONO % 9.4 % (1.0-6.0); PLATELET COUNT 166 10^3/uL (120.0-450.0); RED CELL DISTRIBUTION WIDTH 14.5 % (11.5-14.5)
--- NOTE | 2016-12-06 11:11 | CP.PCM.PN ---
Subjective - Date & Time of Evaluation Date of Evaluation: 12/06/16 Time of Evaluation: 11:07 - Subjective Subjective: Follow up Nephrology Covering Note For Dr Rosen Assessment: HTN chronic kidney disease (N12.9) Acute Kidney Injury (N17.9) likely due to HTN emergency: improved Chronic Kidney Disease Stage 4 (N18.4) close to stage 5 with 429 mg proteinuria likely due to HTN vitamin D with Secondary hyperparathyroidism (E21.1), uncontrolled severe Hypertension with emergency elevated metanephrines in urine, rest secondary HTN work up negative UTI Plan No acute need for renal replacement therapy at this time. pt was advised to d/w her primary project manager about dialysis planing and transplant evaluations. Hypertension control with meds as ordered. Patient not on ACEI/ARB due to ESTEFANI. continue with norvasc 10 mg/day, minoxidil 5 mg bid, labetalol 400 mg BID and hydralazine 100 mg TID, clonidine 0.3 mg patch with PRN labetalol. Monitor Input/Output, daily weights and renal function with basic metabolic panel added Iron supplements, sodium bicarb and continue with Vit D checking plasma metanephrines. consider endocrine evaluation for possibility of phaeo. Her imaging neg for adrenal mass Consider non-invasive cardiac assessment since she will be at high risk of contrast nephropathy if planned for coronary angiogram . Dose meds/antibiotics for reduced GFR <10. Avoid fleets enema/magnesium based laxatives. Avoid nephrotoxins/NSAIDs/ iodinated contrast (unless needed emergently). Glycemic control Further work up for as per primary team Thanks for allowing me to participate in care of your patient. Will follow patient with you. Please call if any Qs. d/w ICU team Dr Nickolas June Office: [phone] Subjective: Noted events overnight. Patients feels okay. Denies chest pain, palpitation, shortness of breath, leg swelling. No urinary complaints. had episode of chest pain yesterday now better Physical Examination: General Appearance: Comfortable, in no acute respiratory distress, co- operative. Vitals reviewed and noted as below Lungs: Normal respiratory rate/effort. Breath sounds bilateral equal and clear Heart: Normal rate. s1s2 normal. No rub or gallop. Extremities: no edema. Neurological: Patient is alert, awake and oriented to person, place and time. No focal deficit. Strength bilateral appropriate and equal Skin: Warm and dry. Normal turgor. No rash. Palpitation: Normal elasticity for age Abdomen: Abdomen is soft. Bowel sounds +. There is no abdominal tenderness, no guarding/rigidity or organomegaly : kidney or bladder not palpable Labs/imaging reviewed. Past medical history, past surgical history, family history, social history, allergy reviewed work up: CXR and CT abdomen unremarkable UA: nit and le + with 100 protein no blood BNP 9200 albumin 4.4 MONA/ANCA/Hep B and C negative JAMIE negative on doppler Zacarias 16 renin 2 metanephrine urine elevated at 1635 Vit D <16 PTH 132 TSAT 11% Ferritin 233 Objective - Vital Signs/Intake and Output Vital Signs (last 24 hours): Temp Pulse Resp BP Pulse Ox 98 F 88 24 183/96 H 100 12/06/16 04:00 12/06/16 10:14 12/06/16 06:30 12/06/16 10:14 12/06/16 06:40 Intake and Output: 12/06/16 12/06/16 06:59 18:59 Intake Total 670 6 Balance 670 6 - Medications Medications: Current Medications Acetaminophen (Tylenol 325mg Tab) 650 mg PO Q4H PRN PRN Reason: headache Amlodipine Besylate (Norvasc) 10 mg PO DAILY [facility] Last Admin: 12/06/16 10:03 Dose: 10 mg Aspirin (Aspirin Chewable) 81 mg PO DAILY [facility] Last Admin: 12/06/16 10:05 Dose: 81 mg Atorvastatin Calcium (Lipitor) 20 mg PO DIN [facility] Cholecalciferol (Vitamin D) 1,000 iu PO DAILY [facility] Last Admin: 12/06/16 10:05 Dose: 1,000 iu Clonidine HCl (Catapres-Tts3 0.3 Mg/24 Hr) 1 patch TD Q7D@1000 [facility] Last Admin: 12/04/16 15:02 Dose: 1 patch Clopidogrel Bisulfate (Plavix) 75 mg PO DAILY [facility] Last Admin: 12/06/16 10:04 Dose: 75 mg Diphenhydramine HCl (Benadryl) 25 mg PO HS PRN PRN Reason: Insomnia Last Admin: 12/02/16 21:29 Dose: 25 mg Docusate Sodium (Colace) 100 mg PO TID [facility] Last Admin: 12/06/16 10:05 Dose: Not Given Famotidine (Pepcid) 40 mg PO HS [facility] Last Admin: 12/05/16 21:51 Dose: 40 mg Ferrous Gluconate (Fergon) 324 mg PO TID [facility] Last Admin: 12/06/16 10:05 Dose: 324 mg Hydralazine HCl (Apresoline) 100 mg PO TID [facility] Last Admin: 12/06/16 10:06 Dose: 100 mg Hydromorphone HCl (Dilaudid) 0.5 mg IVP Q6H PRN PRN Reason: Pain, severe (8-10) Last Admin: 12/01/16 15:27 Dose: 0.5 mg Cefazolin Sodium (Ancef 1gm In Ns) 1 gm in 100 mls @ 100 mls/hr IVPB Q12 ANNA PRN Reason: Protocol Last Admin: 12/06/16 10:02 Dose: 100 mls/hr Heparin Sodium/Sodium Chloride (Heparin 73985 Units/250ml 1/2 Normal Saline) 25 ,000 units in 250 mls @ 8.382 mls/hr IV .Q24H ANNA; 12 UNITS/KG/HR PRN Reason: Protocol Last Titration: 12/06/16 10:28 Dose: 10 units/kg/hr, 6.985 mls/hr Labetalol HCl (Trandate) 20 mg IV Q6H PRN PRN Reason: Systolic Blood Pressure Labetalol HCl (Trandate) 400 mg PO BID [facility] Last Admin: 12/06/16 10:14 Dose: 400 mg Minoxidil (Minoxidil) 5 mg PO BID [facility] Last Admin: 12/06/16 10:09 Dose: 5 mg Ondansetron HCl (Zofran Inj) 4 mg IVP Q4H PRN PRN Reason: Nausea/Vomiting Last Admin: 12/06/16 01:19 Dose: 4 mg Polyethylene Glycol (Miralax) 17 gm PO BID [facility] Last Admin: 12/06/16 10:02 Dose: Not Given Sodium Bicarbonate (Sodium Bicarbonate Tab) 1,300 mg PO BID [facility] - Labs Labs: 12/06/16 09:50 12/06/16 06:35 PT 10.7 Seconds (9.9-11.8) 12/01/16 10:21 INR 0.99 (0.93-1.08) 12/01/16 10:21 APTT 84.0 Seconds (23.7-30.8) H* 12/06/16 09:50
--- NOTE | 2016-12-06 11:15 | CP.PCM.PN ---
Subjective - Date & Time of Evaluation Date of Evaluation: 12/06/16 Time of Evaluation: 09:10 - Subjective Subjective: Noted patient to have had chest pain yesterday and was upgraded to ICU to R/O ACS. Currently comfortable, not in distress, afebrile. No dysuria currently. Objective - Vital Signs/Intake and Output Vital Signs (last 24 hours): Temp Pulse Resp BP Pulse Ox 98 F 91 H 24 140/89 100 12/06/16 04:00 12/06/16 06:40 12/06/16 06:30 12/06/16 06:00 12/06/16 06:40 Intake and Output: 12/06/16 12/06/16 06:59 18:59 Intake Total 670 Balance 670 - Medications Medications: Current Medications Acetaminophen (Tylenol 325mg Tab) 650 mg PO Q4H PRN PRN Reason: headache Amlodipine Besylate (Norvasc) 10 mg PO DAILY [facility] Last Admin: 12/05/16 09:17 Dose: 10 mg Aspirin (Aspirin Chewable) 81 mg PO DAILY [facility] Cholecalciferol (Vitamin D) 1,000 iu PO DAILY [facility] Last Admin: 12/05/16 09:13 Dose: 1,000 iu Clonidine HCl (Catapres-Tts3 0.3 Mg/24 Hr) 1 patch TD Q7D@1000 [facility] Last Admin: 12/04/16 15:02 Dose: 1 patch Clopidogrel Bisulfate (Plavix) 75 mg PO DAILY [facility] Diphenhydramine HCl (Benadryl) 25 mg PO HS PRN PRN Reason: Insomnia Last Admin: 12/02/16 21:29 Dose: 25 mg Docusate Sodium (Colace) 100 mg PO TID [facility] Last Admin: 12/05/16 17:31 Dose: Not Given Famotidine (Pepcid) 40 mg PO HS [facility] Last Admin: 12/05/16 21:51 Dose: 40 mg Ferrous Gluconate (Fergon) 324 mg PO TID [facility] Last Admin: 12/05/16 17:29 Dose: 324 mg Hydralazine HCl (Apresoline) 100 mg PO TID [facility] Last Admin: 12/05/16 17:31 Dose: 100 mg Hydrochlorothiazide (Hydrodiuril) 25 mg PO DAILY [facility] Last Admin: 12/05/16 17:29 Dose: 25 mg Hydromorphone HCl (Dilaudid) 0.5 mg IVP Q6H PRN PRN Reason: Pain, severe (8-10) Last Admin: 12/01/16 15:27 Dose: 0.5 mg Cefazolin Sodium (Ancef 1gm In Ns) 1 gm in 100 mls @ 100 mls/hr IVPB Q12 ANNA PRN Reason: Protocol Last Admin: 12/05/16 21:43 Dose: Not Given Nitroglycerin/Dextrose (Nitroglycerin 50 Mg/250 Ml D5w) 50 mg in 250 mls @ 1.5 mls/hr IV .Q24H PRN; Protocol; 5 MCG/MIN PRN Reason: chest pain Heparin Sodium/Sodium Chloride (Heparin 86486 Units/250ml 1/2 Normal Saline) 25 ,000 units in 250 mls @ 8.382 mls/hr IV .Q24H ANNA; 12 UNITS/KG/HR PRN Reason: Protocol Last Admin: 12/06/16 04:10 Dose: 12 units/kg/hr, 8.382 mls/hr Labetalol HCl (Trandate) 20 mg IV Q6H PRN PRN Reason: Systolic Blood Pressure Labetalol HCl (Trandate) 400 mg PO BID [facility] Last Admin: 12/05/16 17:30 Dose: 400 mg Minoxidil (Minoxidil) 5 mg PO BID [facility] Last Admin: 12/05/16 17:29 Dose: 5 mg Ondansetron HCl (Zofran Inj) 4 mg IVP Q4H PRN PRN Reason: Nausea/Vomiting Last Admin: 12/06/16 01:19 Dose: 4 mg Polyethylene Glycol (Miralax) 17 gm PO BID [facility] Last Admin: 12/05/16 17:35 Dose: Not Given Zolpidem Tartrate (Ambien) 5 mg PO HS PRN; Protocol PRN Reason: Insomnia Last Admin: 12/05/16 21:50 Dose: 5 mg - Labs Labs: 12/06/16 03:25 12/06/16 06:35 PT 10.7 Seconds (9.9-11.8) 12/01/16 10:21 INR 0.99 (0.93-1.08) 12/01/16 10:21 APTT 29.0 Seconds (23.7-30.8) 12/06/16 03:25 - Constitutional Appears: Non-toxic, No Acute Distress - Head Exam Head Exam: NORMAL INSPECTION - Neck Exam Neck Exam: absent: Meningismus - Respiratory Exam Respiratory Exam: Decreased Breath Sounds - Cardiovascular Exam Cardiovascular Exam: +S1, +S2 - GI/Abdominal Exam GI & Abdominal Exam: Soft. absent: Tenderness Assessment and Plan - Assessment and Plan (Free Text) Plan: Assessment Urinary tract infection with E. coli, clinically improving chest pain R/O acute coronary syndrome history of hypertensive urgency with associated Posterior Reversible Encephalopathy Syndrome (PRES) S/P sepsis from urinary tract infection with E. coli HTN, poorly-controlled history of glaucoma history of cataracts sickle cell trait S/P Caesarian section obesity with BMI 31 Plan continue Cefazolin (day 4) since the E. coli is sensitive to it and will target 7-10 days of therapy follow up Cardiology work up and recommendations Will continue to monitor clinically
[2016-12-06 12:23] LABS: METANEPHRINES 29 pg/mL (<=57); TOTAL METANEPHRINES 162 pg/mL (<=205)
--- NOTE | 2016-12-06 16:15 | PN ---
DATE: 12/06/2016 The patient did complain of persistent chest pain yesterday and was transferred to telemetry and from telemetry was transferred to ICU for uncontrolled hypertension and borderline troponin elevation. A t this time, the patient is chest pain free. PHYSICAL EXAMINATION: VITAL SIGNS: Blood pressure 169/99, heart rate 90, temperature 97.9, respiration 20. HEENT: Pale conjunctivae. CHEST: Clear. HEART: S1, S2 regular. ABDOMEN: Soft. EXTREMITIES: No edema. LABORATORIES: Hemoglobin and hematocrit 9.7 and 27.6. White count and platelet count and 166, 000. SMA-7: Sodium 136, potassium 3.8, chloride 107, CO2 19, glucose 99, BUN 59, creatinine 4.8. C ardiac enzymes 0.4, 0.35 and 0.88. Most recent PTT is 84 on intravenous heparin infusion. EKG revea led sinus rhythm, LVH with repolarization; however, lateral ischemia is still a possibility. ASSESSMENT: 1. Chest pain, consider non-ST elevation myocardial infarction. 2. Uncontrolled hypertension. 3. Advanced renal insufficiency. RECOMMENDATIONS: Continue current oral Lipitor 400 mg twice a day, IV albuterol at intravenous ly q. 6 hours p.r.n., Plavix 75 mg once a day, Norvasc 10 mg once a day, minoxidil 5 mg twice a day, Lipitor 20 mg once a day, intravenous heparin infusion and therapeutic regimen, clonidine 0.3 mg week ly, aspirin 81 mg once a day, hydralazine 100 mg t.i.d. Cardiac catheterization was presented to the patient; however, with a very high risk of initiating hemodialysis soon after. The patient has decl ined this option and it will be further discussed with the outreach clinician as hemodialysis should be ant icipated if the patient experiences contrast-induced nephropathy on top of her preexisting renal insu fficiency. In the meantime, continue medical approach. Misael Carson MD cc: [id number] TT: 12/06/2016 16:14:09 Confirmation # [id number] Dictation # [id number] mn
--- NOTE | 2016-12-06 18:57 | CP.PCM.PN ---
Subjective - Date & Time of Evaluation Date of Evaluation: 12/06/16 Time of Evaluation: 09:00 - Subjective Subjective: Overnight was given too many anti HTN medications and also had episodic chest pain that resolved. Objective - Vital Signs/Intake and Output Vital Signs (last 24 hours): Temp Pulse Resp BP Pulse Ox 98.2 F 85 26 H 115/53 L 94 L 12/06/16 12:00 12/06/16 18:04 12/06/16 14:40 12/06/16 18:22 12/06/16 14:50 Intake and Output: 12/06/16 12/06/16 06:59 18:59 Intake Total 670 6 Balance 670 6 - Medications Medications: Current Medications Acetaminophen (Tylenol 325mg Tab) 650 mg PO Q4H PRN PRN Reason: headache Amlodipine Besylate (Norvasc) 10 mg PO DAILY [facility] Last Admin: 12/06/16 10:03 Dose: 10 mg Aspirin (Aspirin Chewable) 81 mg PO DAILY [facility] Last Admin: 12/06/16 10:05 Dose: 81 mg Atorvastatin Calcium (Lipitor) 20 mg PO DIN [facility] Last Admin: 12/06/16 18:07 Dose: 20 mg Cholecalciferol (Vitamin D) 1,000 iu PO DAILY [facility] Last Admin: 12/06/16 10:05 Dose: 1,000 iu Clonidine HCl (Catapres-Tts3 0.3 Mg/24 Hr) 1 patch TD Q7D@1000 [facility] Last Admin: 12/04/16 15:02 Dose: 1 patch Clopidogrel Bisulfate (Plavix) 75 mg PO DAILY [facility] Last Admin: 12/06/16 10:04 Dose: 75 mg Diphenhydramine HCl (Benadryl) 25 mg PO HS PRN PRN Reason: Insomnia Last Admin: 12/02/16 21:29 Dose: 25 mg Docusate Sodium (Colace) 100 mg PO TID [facility] Last Admin: 12/06/16 18:00 Dose: Not Given Famotidine (Pepcid) 40 mg PO HS [facility] Last Admin: 12/05/16 21:51 Dose: 40 mg Ferrous Gluconate (Fergon) 324 mg PO TID [facility] Ferrous Gluconate (Fergon) 324 mg PO 0900,1300,1700 [facility] Hydralazine HCl (Apresoline) 100 mg PO TID [facility] Last Admin: 12/06/16 18:04 Dose: 100 mg Hydromorphone HCl (Dilaudid) 0.5 mg IVP Q6H PRN PRN Reason: Pain, severe (8-10) Last Admin: 12/01/16 15:27 Dose: 0.5 mg Cefazolin Sodium (Ancef 1gm In Ns) 1 gm in 100 mls @ 100 mls/hr IVPB Q12 ANNA PRN Reason: Protocol Last Admin: 12/06/16 10:02 Dose: 100 mls/hr Heparin Sodium/Sodium Chloride (Heparin 24191 Units/250ml 1/2 Normal Saline) 25 ,000 units in 250 mls @ 8.382 mls/hr IV .Q24H ANNA; 12 UNITS/KG/HR PRN Reason: Protocol Last Titration: 12/06/16 10:28 Dose: 10 units/kg/hr, 6.985 mls/hr Labetalol HCl (Trandate) 20 mg IV Q6H PRN PRN Reason: Systolic Blood Pressure Labetalol HCl (Trandate) 400 mg PO BID [facility] Last Admin: 12/06/16 18:22 Dose: 400 mg Minoxidil (Minoxidil) 5 mg PO BID [facility] Last Admin: 12/06/16 18:07 Dose: 5 mg Ondansetron HCl (Zofran Inj) 4 mg IVP Q4H PRN PRN Reason: Nausea/Vomiting Last Admin: 12/06/16 01:19 Dose: 4 mg Polyethylene Glycol (Miralax) 17 gm PO BID [facility] Last Admin: 12/06/16 18:01 Dose: Not Given Sodium Bicarbonate (Sodium Bicarbonate Tab) 650 mg PO Q6 [facility] Sodium Bicarbonate (Sodium Bicarbonate Tab) 1,300 mg PO 0800,1600 [facility] - Labs Labs: 12/06/16 09:50 12/06/16 06:35 PT 10.7 Seconds (9.9-11.8) 12/01/16 10:21 INR 0.99 (0.93-1.08) 12/01/16 10:21 APTT 45.7 Seconds (23.7-30.8) H 12/06/16 15:42 - Head Exam Head Exam: ATRAUMATIC, NORMAL INSPECTION - Eye Exam Eye Exam: Normal appearance Pupil Exam: NORMAL ACCOMODATION - ENT Exam ENT Exam: Mucous Membranes Moist - Respiratory Exam Respiratory Exam: Clear to Ausculation Bilateral, NORMAL BREATHING PATTERN - Cardiovascular Exam Cardiovascular Exam: REGULAR RHYTHM - GI/Abdominal Exam GI & Abdominal Exam: Normal Bowel Sounds - Extremities Exam Extremities Exam: Full ROM - Back Exam Back Exam: NORMAL INSPECTION - Neurological Exam Neurological Exam: Alert, Oriented x3 Assessment and Plan - Assessment and Plan (Free Text) Assessment: 51 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 in the past had much higher elevated TROP. No cath done then and now CKD would be detremental for DYE load. Would treat NSTEMI medically. asp, plavix statin. card following. Stop heparin ggt. transfer to telemetry. BP under control and now CP free cc time 55 min
[2016-12-07] MEDS: Heparin25000 units/250ml 1/2NS 25,000 UNITS/250 ML BAG IV SCH (07:14)
[2016-12-07 07:33] LABS: HEMATOCRIT 24.8 % (36.0-48.0); MEAN CELL VOLUME 82.7 fL (80.0-105.0); MEAN CORPUSCULAR HEMOGLOBIN 28.7 pg (25.0-35.0); MEAN CORPUSCULAR HGB CONC 34.7 g/dl (31.0-37.0); MEAN PLATELET VOLUME 12.1 fl (7.0-11.0); RED CELL DISTRIBUTION WIDTH 14.5 % (11.5-14.5); WHITE BLOOD COUNT 6.9 10^3/ul (4.5-11.0)
--- NOTE | 2016-12-07 07:39 | PN ---
DATE: 12/06/2016 SUBJECTIVE: The patient seen and examined on the bedside. Two younger daughters were sitting on the bedside also. Last night's event was reported. Last night, Dr. Rosario called me that patient was having any chest pain. He josef the troponin and called Dr. Alejandre. When I saw the patient in the unit, the patient was comfortable. No more chest pain, but a little bit anxious. PHYSICAL EXAMINATION: VITAL SIGNS: Temperature 98.2, pulse 77, blood pressure 120/49, respiratory rate 13. HEENT: Head normocephalic, atraumatic. Eyes: PERRLA. Extraocular muscles are intact. Conjunctivae are clear. Nose patent. Mucous membranes moist. NECK: Supple. No carotid bruit, JVD or thyromegaly. CHEST: Bilaterally symmetrical. HEART: S1, S2 positive. LUNGS: Clear to auscultation. ABDOMEN: Soft. Bowel sounds present. No organomegaly. EXTREMITIES: No edema, no cyanosis. NEUROLOGIC: Awake, alert, moving all 4 extremities. No focal deficits. MEDICATIONS: Cefazolin, hydralazine, aspirin, Benadryl, clonidine, docusate, Dilaudid, Colace, hydromorphone. LABORATORY DATA: White blood cells 7.0, hemoglobin 9.3, hematocrit 27.3, platelets 156. Sodium 136, potassium 3.8, BUN 59, creatinine 4.8, glucose noted , Troponin 0.40, second set is 0.35, third set is 0.88. ASSESSMENT AND PLAN: The patient is a 51-year-old lady with anemia; renal insufficiency, improving; had a lot chest pain last night, troponin is positive , seen by cardiology, Dr. Carson, consider [id number] myocardial infarction; uncontrolled hypertension, advanced renal insufficiency. Recommended continue current oral Lipitor, IV albuterol, Plavix, Norvasc, minoxidil, Lipitor. Intravenous heparin infusion started and therapeutic regimen required according to protocol. Cardiac catheterization was presented to the patient, however, with a very high risk of initiating hemodialysis soon after, the patient had declined this option and it will be further discussed with the audio engineer and basketball assembler. Hemodialysis should be anticipated if the patient experiences contrast-induced nephropathy on the top of the preexisting renal insufficiency. Reviewed Dr. Carson's notes. Meanwhile, continue present treatment. Length of discussion done with the patient and the patient's both daughters. Will follow up. Karli Laureano MD cc: [id number] TT: 12/07/2016 07:38:29 Confirmation # [id number] Dictation # [id number] mn DOMINGO
[2016-12-07 07:40] LABS: ALB/GLOB RATIO 1.3 (1.1-1.8); BILIRUBIN,TOTAL 0.4 mg/dL (0.2-1.3); CALCIUM 9.2 mg/dL (8.4-10.5); POTASSIUM 3.5 mmol/L (3.6-5.0); TOTAL PROTEIN 6.8 g/dL (5.8-8.3)
[2016-12-07] MEDS: ceFAZolin 1 gm in NS 1 GM/100 ML BAG IVPB SCH ×2 (10:06→22:15)
[2016-12-07] MEDS: POLYETHYLENE GLYCOL 3350 17 GM/Dose PACKET PO SCH ×2 (10:06→18:00)
--- NOTE | 2016-12-07 10:28 | CP.PCM.PN ---
Subjective - Date & Time of Evaluation Date of Evaluation: 12/07/16 Time of Evaluation: 09:00 - Subjective Subjective: Comfortable in bed, currently not in distress. No fevers overnight. Objective - Vital Signs/Intake and Output Vital Signs (last 24 hours): Temp Pulse Resp BP Pulse Ox 97.9 F 88 30 H 132/55 L 100 12/07/16 04:00 12/07/16 05:00 12/07/16 05:00 12/07/16 05:00 12/07/16 05:00 Intake and Output: 12/07/16 12/07/16 06:59 18:59 Intake Total 544 Output Total 500 Balance 44 - Medications Medications: Current Medications Acetaminophen (Tylenol 325mg Tab) 650 mg PO Q4H PRN PRN Reason: headache Amlodipine Besylate (Norvasc) 10 mg PO DAILY [facility] Last Admin: 12/06/16 10:03 Dose: 10 mg Aspirin (Aspirin Chewable) 81 mg PO DAILY [facility] Last Admin: 12/06/16 10:05 Dose: 81 mg Atorvastatin Calcium (Lipitor) 20 mg PO DIN [facility] Last Admin: 12/06/16 18:07 Dose: 20 mg Cholecalciferol (Vitamin D) 1,000 iu PO DAILY [facility] Last Admin: 12/06/16 10:05 Dose: 1,000 iu Clonidine HCl (Catapres-Tts3 0.3 Mg/24 Hr) 1 patch TD Q7D@1000 [facility] Last Admin: 12/04/16 15:02 Dose: 1 patch Clopidogrel Bisulfate (Plavix) 75 mg PO DAILY [facility] Last Admin: 12/06/16 10:04 Dose: 75 mg Diphenhydramine HCl (Benadryl) 25 mg PO HS PRN PRN Reason: Insomnia Last Admin: 12/02/16 21:29 Dose: 25 mg Docusate Sodium (Colace) 100 mg PO TID [facility] Last Admin: 12/06/16 18:00 Dose: Not Given Famotidine (Pepcid) 40 mg PO HS [facility] Last Admin: 12/06/16 22:34 Dose: 40 mg Ferrous Gluconate (Fergon) 324 mg PO 0900,1300,1700 [facility] Hydralazine HCl (Apresoline) 100 mg PO TID [facility] Last Admin: 12/06/16 18:04 Dose: 100 mg Hydromorphone HCl (Dilaudid) 0.5 mg IVP Q6H PRN PRN Reason: Pain, severe (8-10) Last Admin: 12/01/16 15:27 Dose: 0.5 mg Cefazolin Sodium (Ancef 1gm In Ns) 1 gm in 100 mls @ 100 mls/hr IVPB Q12 ANNA PRN Reason: Protocol Last Admin: 12/06/16 22:34 Dose: 100 mls/hr Heparin Sodium/Sodium Chloride (Heparin 27504 Units/250ml 1/2 Normal Saline) 25 ,000 units in 250 mls @ 8.382 mls/hr IV .Q24H ANNA; 12 UNITS/KG/HR PRN Reason: Protocol Last Admin: 12/07/16 07:14 Dose: 12 units/kg/hr, 8.382 mls/hr Labetalol HCl (Trandate) 20 mg IV Q6H PRN PRN Reason: Systolic Blood Pressure Labetalol HCl (Trandate) 400 mg PO BID [facility] Last Admin: 12/06/16 18:22 Dose: 400 mg Minoxidil (Minoxidil) 5 mg PO BID [facility] Last Admin: 12/06/16 18:07 Dose: 5 mg Ondansetron HCl (Zofran Inj) 4 mg IVP Q4H PRN PRN Reason: Nausea/Vomiting Last Admin: 12/06/16 01:19 Dose: 4 mg Polyethylene Glycol (Miralax) 17 gm PO BID [facility] Last Admin: 12/06/16 18:01 Dose: Not Given Sodium Bicarbonate (Sodium Bicarbonate Tab) 1,300 mg PO 0800,1600 [facility] - Labs Labs: 12/07/16 06:30 12/07/16 06:30 PT 10.7 Seconds (9.9-11.8) 12/01/16 10:21 INR 0.99 (0.93-1.08) 12/01/16 10:21 APTT 71.6 Seconds (23.7-30.8) H* 12/06/16 22:07 - Constitutional Appears: Non-toxic, No Acute Distress - Head Exam Head Exam: NORMAL INSPECTION - ENT Exam ENT Exam: Mucous Membranes Moist - Neck Exam Neck Exam: absent: Lymphadenopathy, Meningismus - Respiratory Exam Respiratory Exam: Decreased Breath Sounds - Cardiovascular Exam Cardiovascular Exam: +S1, +S2 - GI/Abdominal Exam GI & Abdominal Exam: Soft. absent: Tenderness Assessment and Plan - Assessment and Plan (Free Text) Plan: Assessment Urinary tract infection with E. coli, clinically improving consider acute NSTEMI in a patient with poorly-controlled HTN history of hypertensive urgency with associated Posterior Reversible Encephalopathy Syndrome (PRES) S/P sepsis from urinary tract infection with E. coli HTN, poorly-controlled history of glaucoma history of cataracts sickle cell trait S/P Caesarian section obesity with BMI 31 Plan continue Cefazolin (day 5) since the E. coli is sensitive to it and will target 7-10 days of therapy follow up Cardiology work up and recommendations Will continue to monitor clinically
[2016-12-07] MEDS ORDERED: Darbepoetin Alfa 40 mcg/ml Inj SC ONE (13:06)
--- NOTE | 2016-12-07 13:12 | CP.PCM.PN ---
Subjective - Date & Time of Evaluation Date of Evaluation: 12/07/16 Time of Evaluation: 13:08 - Subjective Subjective: Follow up Nephrology Covering Note For Dr Rosen Assessment: HTN chronic kidney disease (N12.9) Acute Kidney Injury (N17.9) likely due to HTN emergency: stable Chronic Kidney Disease Stage 4 (N18.4) close to stage 5 with 429 mg proteinuria likely due to HTN vitamin D with Secondary hyperparathyroidism (E21.1), uncontrolled severe Hypertension with emergency elevated metanephrines in urine, rest secondary HTN work up negative UTI Plan No acute need for renal replacement therapy at this time. pt was advised to d/w her primary anesthesiologists' assistant soon about dialysis planing and transplant evaluations. Hypertension control with meds as ordered. Patient not on ACEI/ARB due to ESTEFANI. continue with norvasc 10 mg/day, minoxidil 5 mg bid, labetalol 400 mg BID and hydralazine 100 mg TID, clonidine 0.3 mg patch with PRN labetalol. Monitor Input/Output, daily weights and renal function with basic metabolic panel added Iron supplements, sodium bicarb and continue with Vit D. also dose with aranesp today 40 mcg normal plasma metanephrines. Her imaging neg for adrenal mass pt declined cardiac cath due to risk of contrast nephropathy. further management as per cardiology. Dose meds/antibiotics for reduced GFR <10. Avoid fleets enema/magnesium based laxatives. Avoid nephrotoxins/NSAIDs/ iodinated contrast (unless needed emergently). Glycemic control Further work up for as per primary team Thanks for allowing me to participate in care of your patient. Please call if any Qs. d/w cardiology. she is stable from renal perspective for d/c when planned and to f/up with Dr Rosen in office within [address] Nickolas June Office: [phone] Subjective: Noted events overnight. Patients feels okay. Denies chest pain, palpitation, shortness of breath, leg swelling. No urinary complaints. had vomiting yesterday, says due to meds Physical Examination: General Appearance: Comfortable, in no acute respiratory distress, co- operative. Vitals reviewed and noted as below Lungs: Normal respiratory rate/effort. Breath sounds bilateral equal and clear Heart: Normal rate. s1s2 normal. No rub or gallop. Extremities: no edema. Neurological: Patient is alert, awake and oriented to person, place and time. No focal deficit. Strength bilateral appropriate and equal. no asterixis Skin: Warm and dry. Normal turgor. No rash. Palpitation: Normal elasticity for age Abdomen: Abdomen is soft. Bowel sounds +. There is no abdominal tenderness, no guarding/rigidity or organomegaly : kidney or bladder not palpable Labs/imaging reviewed. Past medical history, past surgical history, family history, social history, allergy reviewed work up: CXR and CT abdomen unremarkable UA: nit and le + with 100 protein no blood BNP 9200 albumin 4.4 MONA/ANCA/Hep B and C negative JAMIE negative on doppler Zacarias 16 renin 2 metanephrine urine elevated at 1635. now plasma metanephrines WNL Vit D <16 PTH 132 TSAT 11% Ferritin 233 Objective - Vital Signs/Intake and Output Vital Signs (last 24 hours): Temp Pulse Resp BP Pulse Ox 97.9 F 75 30 H 129/63 100 12/07/16 04:00 12/07/16 10:04 12/07/16 05:00 12/07/16 10:05 12/07/16 05:00 Intake and Output: 12/07/16 12/07/16 06:59 18:59 Intake Total 544 Output Total 500 Balance 44 - Medications Medications: Current Medications Acetaminophen (Tylenol 325mg Tab) 650 mg PO Q4H PRN PRN Reason: headache Amlodipine Besylate (Norvasc) 10 mg PO DAILY [facility] Last Admin: 12/07/16 10:05 Dose: 10 mg Aspirin (Aspirin Chewable) 81 mg PO DAILY [facility] Last Admin: 12/07/16 10:06 Dose: 81 mg Atorvastatin Calcium (Lipitor) 20 mg PO DIN [facility] Last Admin: 12/06/16 18:07 Dose: 20 mg Cholecalciferol (Vitamin D) 1,000 iu PO DAILY [facility] Last Admin: 12/07/16 10:04 Dose: 1,000 iu Clonidine HCl (Catapres-Tts3 0.3 Mg/24 Hr) 1 patch TD Q7D@1000 [facility] Last Admin: 12/04/16 15:02 Dose: 1 patch Clopidogrel Bisulfate (Plavix) 75 mg PO DAILY [facility] Last Admin: 12/07/16 10:06 Dose: 75 mg Diphenhydramine HCl (Benadryl) 25 mg PO HS PRN PRN Reason: Insomnia Last Admin: 12/02/16 21:29 Dose: 25 mg Docusate Sodium (Colace) 100 mg PO TID [facility] Last Admin: 12/07/16 10:06 Dose: Not Given Famotidine (Pepcid) 40 mg PO HS [facility] Last Admin: 12/06/16 22:34 Dose: 40 mg Ferrous Gluconate (Fergon) 324 mg PO 0900,1300,1700 [facility] Last Admin: 12/07/16 10:06 Dose: 324 mg Heparin Sodium (Porcine) (Heparin) 5,000 units SC Q12 ANNA PRN Reason: Protocol Hydralazine HCl (Apresoline) 100 mg PO TID [facility] Last Admin: 12/07/16 10:04 Dose: 100 mg Hydromorphone HCl (Dilaudid) 0.5 mg IVP Q6H PRN PRN Reason: Pain, severe (8-10) Last Admin: 12/01/16 15:27 Dose: 0.5 mg Cefazolin Sodium (Ancef 1gm In Ns) 1 gm in 100 mls @ 100 mls/hr IVPB Q12 [facility] PRN Reason: Protocol Last Admin: 12/07/16 10:06 Dose: 100 mls/hr Heparin Sodium/Sodium Chloride (Heparin 89355 Units/250ml 1/2 Normal Saline) 25 ,000 units in 250 mls @ 8.382 mls/hr IV .Q24H ANNA; 12 UNITS/KG/HR PRN Reason: Protocol Last Admin: 12/07/16 07:14 Dose: 12 units/kg/hr, 8.382 mls/hr Labetalol HCl (Trandate) 20 mg IV Q6H PRN PRN Reason: Systolic Blood Pressure Labetalol HCl (Trandate) 400 mg PO BID [facility] Last Admin: 12/07/16 10:09 Dose: 400 mg Minoxidil (Minoxidil) 5 mg PO BID [facility] Last Admin: 12/07/16 10:05 Dose: 5 mg Ondansetron HCl (Zofran Inj) 4 mg IVP Q4H PRN PRN Reason: Nausea/Vomiting Last Admin: 12/06/16 01:19 Dose: 4 mg Polyethylene Glycol (Miralax) 17 gm PO BID [facility] Last Admin: 12/07/16 10:06 Dose: Not Given Sodium Bicarbonate (Sodium Bicarbonate Tab) 1,300 mg PO 0800,1600 [facility] Last Admin: 12/07/16 08:36 Dose: 1,300 mg - Labs Labs: 12/07/16 06:30 12/07/16 06:30 PT 10.7 Seconds (9.9-11.8) 12/01/16 10:21 INR 0.99 (0.93-1.08) 12/01/16 10:21 APTT 36.4 Seconds (23.7-30.8) H 12/07/16 10:50
--- NOTE | 2016-12-07 13:25 | PN ---
DATE: 12/07/2016 The patient denies chest pain. Blood pressure is slightly elevated. No dizziness or syncope. Monit or reveals frequent PVCs. PHYSICAL EXAMINATION: VITAL SIGNS: Blood pressure 129/63, heart rate 75, respirations 30, temperature 97.9. HEENT: Pale conjunctivae. CHEST: Clear. HEART: S1, S2 regular. ABDOMEN: Soft. EXTREMITIES: No edema. LABORATORIES: Hemoglobin and hematocrit 8.6 and 24.8, white count and platelet count are 6.9 and 152 ,000. SMA-7: Sodium 136, potassium 3.5, chloride 106, CO2 19, glucose 85, BUN 56, creatinine 5.2. EKG done just now revealed sinus rhythm, LVH with repolarization changes. However, lateral ischemia cannot be excluded. ASSESSMENT: 1. Consider non-ST elevation myocardial infarction. 2. Uncontrolled hypertension. 3. Advanced renal insufficiency. 4. History of marijuana abuse. RECOMMENDATIONS: Continue current labetalol at 40 mg orally twice a day, Plavix 75 mg once a day, No rvasc 10 mg once a day, minoxidil 5 mg twice a day, Lipitor 20 mg once a day, clonidine patch at 0.3 mg once a day, aspirin 81 mg once a day, hydralazine 100 mg t.i.d. Discontinue intravenous heparin a nd start subcutaneous heparin. The patient refuses cardiac catheterization as she does not want to t brant a risk of worsening renal insufficiency and possible need for hemodialysis. Case was discussed w ith the peer tutor. Misael Carson MD cc: [id number] TT: 12/07/2016 13:24:54 Confirmation # [id number] Dictation # [id number] en
--- NOTE | 2016-12-07 17:22 | CARD ---
APPROVED REPORT EKG Measurement Heart [id number] DE 156P49 [id number] <Conclusion> Normal sinus rhythm Possible Left atrial enlargement Left ventricular hypertrophy with repolarization abnormality Abnormal ECG
--- NOTE | 2016-12-07 17:48 | CARD ---
APPROVED REPORT EKG Measurement Heart [id number] MT 152P54 [id number] <Conclusion> Normal sinus rhythm Possible Left atrial enlargement Left ventricular hypertrophy with repolarization abnormality Abnormal ECG
--- NOTE | 2016-12-07 18:02 | CARD ---
APPROVED REPORT EKG Measurement Heart [id number] MD 150P54 [id number] <Conclusion> Normal sinus rhythm Possible Left atrial enlargement Left ventricular hypertrophy with repolarization abnormality Abnormal ECG
--- NOTE | 2016-12-07 18:07 | CARD ---
APPROVED REPORT EKG Measurement Heart [id number] AK 192P57 [id number] <Conclusion> Sinus rhythm with frequent premature ventricular complexes Left ventricular hypertrophy with repolarization abnormality Prolonged QT Abnormal ECG
--- NOTE | 2016-12-07 19:21 | PN ---
DATE: 12/07/2016 SUBJECTIVE: The patient seen and examined on the bedside in the telemetry. Looks comfortable. Chest pain is gone. Abdominal pain is gone. No nausea, vomiting, or diarrhea. Blood pressure is getting under control. No headache, no dizziness. PHYSICAL EXAMINATION: VITAL SIGNS: Temperature 98.6, pulse is 78, blood pressure 139/96, respiratory rate 28. HEENT: Head normocephalic, atraumatic. Eyes: PERRLA. Extraocular muscles intact. Conjunctivae are clear. Nose patent. Mucous membranes moist. NECK: Supple. No carotid bruit, JVD or thyromegaly. CHEST: Bilaterally symmetrical. HEART: S1, S2 positive. LUNGS: Clear to auscultation. ABDOMEN: Soft. Bowel sounds present. No organomegaly. EXTREMITIES: No edema, no cyanosis. NEUROLOGIC: The patient is awake, alert, moving all 4 extremities. No focal deficits. MEDICATIONS: Ancef, hydralazine, aspirin, Benadryl, Catapres, docusate, iron, heparin, Lipitor, minoxidil, MiraLax, Norvasc, Pepcid, Plavix, bicarbonate, Trandate, Tylenol, vitamin D, Zofran. LABORATORY DATA: White blood cells 6.9, hemoglobin 8.6, hematocrit 24.8, platelets 152. Sodium 136, potassium 3.5, BUN 56, creatinine 5.2. ASSESSMENT AND PLAN: The patient is a 51-year-old lady with hypokalemia, replaced, renal insufficiency improving, anemia, has proteinuria, urinary tract infection. Toxicology is positive for opioids and cannabinoid, hepatitis 1 and 2 antibodies and antigen fourth generation is negative. Seen by the newspaper delivery counselor. Has non-ST elevation myocardial infarction, uncontrolled hypertension, advanced renal insufficiency, history of marijuana abuse. According to newspaper delivery counselor, discontinue the intravenous heparin and start on subcutaneous heparin. The patient refused cardiac catheterization as she does not want to take risk of worsening renal insufficiency and possibly need of hemodialysis. Length of time discussion done with the patient. Reviewed Dr. Carson's notes. Reviewed notes also and Dr. Vance's notes. The patient has urinary tract infection with Escherichia coli, clinically improving. The patient has posterior reversible encephalopathy syndrome, PRES, history of glaucoma, cataracts, sickle cell trait, section, obesity. Continue day 5. The patient needs antibiotics for 7-10 days. Gastrointestinal and deep venous thrombosis prophylaxis. Repeat labs. Discussion done with the patient. Will follow up. Karli Laureano MD cc: [id number] TT: 12/07/2016 19:21:19 Confirmation # [id number] Dictation # [id number] [address]
[2016-12-08 08:01] LABS: HEMATOCRIT 24.8 % (36.0-48.0); MEAN CELL VOLUME 82.9 fL (80.0-105.0); MEAN CORPUSCULAR HEMOGLOBIN 29.1 pg (25.0-35.0); MEAN CORPUSCULAR HGB CONC 35.1 g/dl (31.0-37.0); MEAN PLATELET VOLUME 12.2 fl (7.0-11.0); RED CELL DISTRIBUTION WIDTH 14.5 % (11.5-14.5); WHITE BLOOD COUNT 5.8 10^3/ul (4.5-11.0)
[2016-12-08 08:34] LABS: ALB/GLOB RATIO 1.3 (1.1-1.8); BILIRUBIN,TOTAL 0.4 mg/dL (0.2-1.3); CALCIUM 9.4 mg/dL (8.4-10.5); POTASSIUM 3.6 mmol/L (3.6-5.0)
[2016-12-08] MEDS: ceFAZolin 1 gm in NS 1 GM/100 ML BAG IVPB SCH ×2 (09:40→22:05)
[2016-12-08] MEDS: POLYETHYLENE GLYCOL 3350 17 GM/Dose PACKET PO SCH ×2 (09:40→17:35)
--- NOTE | 2016-12-08 10:53 | CP.PCM.PN ---
Subjective - Date & Time of Evaluation Date of Evaluation: 12/08/16 Time of Evaluation: 09:50 - Subjective Subjective: Comfortable, not in distress, no chest pain currently, no fevers overnight, no dysuria. Objective - Vital Signs/Intake and Output Vital Signs (last 24 hours): Temp Pulse Resp BP Pulse Ox 98.5 F 82 20 120/57 L 100 12/08/16 05:58 12/08/16 05:58 12/08/16 05:58 12/08/16 05:58 12/08/16 05:58 Intake and Output: 12/07/16 12/08/16 18:59 06:59 Intake Total 340 Balance 340 - Medications Medications: Current Medications Acetaminophen (Tylenol 325mg Tab) 650 mg PO Q4H PRN PRN Reason: headache Amlodipine Besylate (Norvasc) 10 mg PO DAILY [facility] Last Admin: 12/07/16 10:05 Dose: 10 mg Aspirin (Aspirin Chewable) 81 mg PO DAILY [facility] Last Admin: 12/07/16 10:06 Dose: 81 mg Atorvastatin Calcium (Lipitor) 20 mg PO DIN [facility] Last Admin: 12/07/16 17:55 Dose: 20 mg Cholecalciferol (Vitamin D) 1,000 iu PO DAILY [facility] Last Admin: 12/07/16 10:04 Dose: 1,000 iu Clonidine HCl (Catapres-Tts3 0.3 Mg/24 Hr) 1 patch TD Q7D@1000 [facility] Last Admin: 12/04/16 15:02 Dose: 1 patch Clopidogrel Bisulfate (Plavix) 75 mg PO DAILY [facility] Last Admin: 12/07/16 10:06 Dose: 75 mg Diphenhydramine HCl (Benadryl) 25 mg PO HS PRN PRN Reason: Insomnia Last Admin: 12/02/16 21:29 Dose: 25 mg Docusate Sodium (Colace) 100 mg PO TID [facility] Last Admin: 12/07/16 18:00 Dose: Not Given Famotidine (Pepcid) 40 mg PO HS [facility] Last Admin: 12/07/16 22:16 Dose: 40 mg Ferrous Gluconate (Fergon) 324 mg PO 0900,1300,1700 [facility] Last Admin: 12/07/16 17:55 Dose: 324 mg Heparin Sodium (Porcine) (Heparin) 5,000 units SC Q12 [facility] PRN Reason: Protocol Last Admin: 12/07/16 22:15 Dose: 5,000 units Hydralazine HCl (Apresoline) 100 mg PO TID [facility] Last Admin: 12/07/16 17:56 Dose: 100 mg Cefazolin Sodium (Ancef 1gm In Ns) 1 gm in 100 mls @ 100 mls/hr IVPB Q12 [facility] PRN Reason: Protocol Last Admin: 12/07/16 22:15 Dose: 100 mls/hr Labetalol HCl (Trandate) 20 mg IV Q6H PRN PRN Reason: Systolic Blood Pressure Labetalol HCl (Trandate) 400 mg PO BID [facility] Last Admin: 12/07/16 17:59 Dose: 400 mg Minoxidil (Minoxidil) 5 mg PO BID [facility] Last Admin: 12/07/16 18:00 Dose: 5 mg Ondansetron HCl (Zofran Inj) 4 mg IVP Q4H PRN PRN Reason: Nausea/Vomiting Last Admin: 12/06/16 01:19 Dose: 4 mg Polyethylene Glycol (Miralax) 17 gm PO BID [facility] Last Admin: 12/07/16 18:00 Dose: Not Given Sodium Bicarbonate (Sodium Bicarbonate Tab) 1,300 mg PO 0800,1600 [facility] Last Admin: 12/07/16 17:55 Dose: 1,300 mg - Labs Labs: 12/07/16 06:30 12/07/16 06:30 PT 10.7 Seconds (9.9-11.8) 12/01/16 10:21 INR 0.99 (0.93-1.08) 12/01/16 10:21 APTT 29.5 Seconds (23.7-30.8) 12/07/16 20:02 - Constitutional Appears: Non-toxic, No Acute Distress - Head Exam Head Exam: NORMAL INSPECTION - ENT Exam ENT Exam: Mucous Membranes Moist - Neck Exam Neck Exam: absent: Lymphadenopathy, Meningismus - Respiratory Exam Respiratory Exam: Decreased Breath Sounds - Cardiovascular Exam Cardiovascular Exam: +S1, +S2 - GI/Abdominal Exam GI & Abdominal Exam: Soft. absent: Tenderness Assessment and Plan - Assessment and Plan (Free Text) Plan: Assessment Urinary tract infection with E. coli, clinically improving consider acute NSTEMI in a patient with poorly-controlled HTN history of hypertensive urgency with associated Posterior Reversible Encephalopathy Syndrome (PRES) S/P sepsis from urinary tract infection with E. coli HTN, poorly-controlled history of glaucoma history of cataracts sickle cell trait S/P Caesarian section obesity with BMI 31 Plan continue Cefazolin (day 6) since the E. coli is sensitive to it and will target 7 days of therapy follow up Cardiology work up and recommendations for the NSTEMI Will continue to follow clinically
--- NOTE | 2016-12-08 11:30 | CP.PCM.PN ---
Subjective - Date & Time of Evaluation Date of Evaluation: 12/08/16 Time of Evaluation: 11:26 - Subjective Subjective: Follow up Nephrology Covering Note For Dr Rosen Assessment: HTN chronic kidney disease (N12.9) Acute Kidney Injury (N17.9) likely due to HTN emergency and BP fluctuations/ hemodynamic Chronic Kidney Disease Stage 4 (N18.4) close to stage 5 with 429 mg proteinuria likely due to HTN vitamin D with Secondary hyperparathyroidism (E21.1), uncontrolled severe Hypertension with emergency elevated metanephrines in urine, rest secondary HTN work up negative UTI Plan No acute need for renal replacement therapy at this time. discussed future dialysis options with her including PD and HD. She want to explore them further and d/w daughters and make a decision later about it. Explained to patient that based upon her current level of kidney function, dialysis to be anticipated in near future. She is somewhat in denial to this possibility. Hypertension control with meds as ordered. Patient not on ACEI/ARB due to ESTEFANI. continue with norvasc 10 mg/day, minoxidil 5 mg bid, labetalol 400 mg BID and hydralazine 100 mg TID, clonidine 0.3 mg patch with PRN labetalol. Monitor Input/Output, daily weights and renal function with basic metabolic panel added Iron supplements, sodium bicarb and continue with Vit D. also dosed with aranesp today 40 mcg 12/07/16 normal plasma metanephrines. Her imaging neg for adrenal mass pt declined cardiac cath due to risk of contrast nephropathy. further management as per cardiology. Dose meds/antibiotics for reduced GFR ~10. Avoid fleets enema/magnesium based laxatives. Avoid nephrotoxins/NSAIDs/ iodinated contrast (unless needed emergently). Glycemic control Further work up for as per primary team Thanks for allowing me to participate in care of your patient. Please call if any Qs. d/w cardiology. she is stable from renal perspective for d/c when planned and to f/up with Dr Rosen in office within [address] Nickolas June Office: [phone] Subjective: Noted events overnight. Patients feels okay. Denies chest pain, palpitation, shortness of breath, leg swelling. No urinary complaints. reports nausea due to sodium bicarb tab Physical Examination: General Appearance: Comfortable, in no acute respiratory distress, co- operative. Vitals reviewed and noted as below Lungs: Normal respiratory rate/effort. Breath sounds bilateral equal and clear Heart: Normal rate. s1s2 normal. No rub or gallop. Extremities: no edema. Neurological: Patient is alert, awake and oriented to person, place and time. No focal deficit. Strength bilateral appropriate and equal. no asterixis Skin: Warm and dry. Normal turgor. No rash. Palpitation: Normal elasticity for age Abdomen: Abdomen is soft. Bowel sounds +. There is no abdominal tenderness, no guarding/rigidity or organomegaly : kidney or bladder not palpable Labs/imaging reviewed. Past medical history, past surgical history, family history, social history, allergy reviewed work up: CXR and CT abdomen unremarkable UA: nit and le + with 100 protein no blood BNP 9200 albumin 4.4 MONA/ANCA/Hep B and C negative JAMIE negative on doppler Zacarias 16 renin 2 metanephrine urine elevated at 1635. now plasma metanephrines WNL Vit D <16 PTH 132 TSAT 11% Ferritin 233 Objective - Vital Signs/Intake and Output Vital Signs (last 24 hours): Temp Pulse Resp BP Pulse Ox 98.5 F 107 H 20 141/76 100 12/08/16 05:58 12/08/16 09:39 12/08/16 05:58 12/08/16 09:39 12/08/16 05:58 Intake and Output: 12/08/16 12/08/16 06:59 18:59 Intake Total 340 Balance 340 - Medications Medications: Current Medications Acetaminophen (Tylenol 325mg Tab) 650 mg PO Q4H PRN PRN Reason: headache Amlodipine Besylate (Norvasc) 10 mg PO DAILY [facility] Last Admin: 12/08/16 09:39 Dose: 10 mg Aspirin (Aspirin Chewable) 81 mg PO DAILY [facility] Last Admin: 12/08/16 09:39 Dose: 81 mg Atorvastatin Calcium (Lipitor) 20 mg PO DIN [facility] Last Admin: 12/07/16 17:55 Dose: 20 mg Cholecalciferol (Vitamin D) 1,000 iu PO DAILY [facility] Last Admin: 12/08/16 09:39 Dose: 1,000 iu Clonidine HCl (Catapres-Tts3 0.3 Mg/24 Hr) 1 patch TD Q7D@1000 [facility] Last Admin: 12/04/16 15:02 Dose: 1 patch Clopidogrel Bisulfate (Plavix) 75 mg PO DAILY [facility] Last Admin: 12/08/16 09:39 Dose: 75 mg Diphenhydramine HCl (Benadryl) 25 mg PO HS PRN PRN Reason: Insomnia Last Admin: 12/02/16 21:29 Dose: 25 mg Docusate Sodium (Colace) 100 mg PO TID [facility] Last Admin: 12/08/16 09:41 Dose: Not Given Famotidine (Pepcid) 40 mg PO HS [facility] Last Admin: 12/07/16 22:16 Dose: 40 mg Ferrous Gluconate (Fergon) 324 mg PO 0900,1300,1700 [facility] Last Admin: 12/08/16 08:39 Dose: 324 mg Heparin Sodium (Porcine) (Heparin) 5,000 units SC Q12 [facility] PRN Reason: Protocol Last Admin: 12/08/16 09:40 Dose: 5,000 units Hydralazine HCl (Apresoline) 100 mg PO TID [facility] Last Admin: 12/08/16 09:39 Dose: 100 mg Cefazolin Sodium (Ancef 1gm In Ns) 1 gm in 100 mls @ 100 mls/hr IVPB Q12 [facility] PRN Reason: Protocol Last Admin: 12/08/16 09:40 Dose: 100 mls/hr Labetalol HCl (Trandate) 20 mg IV Q6H PRN PRN Reason: Systolic Blood Pressure Labetalol HCl (Trandate) 400 mg PO BID [facility] Last Admin: 12/08/16 09:37 Dose: 400 mg Minoxidil (Minoxidil) 5 mg PO BID [facility] Last Admin: 12/08/16 09:39 Dose: 5 mg Ondansetron HCl (Zofran Inj) 4 mg IVP Q4H PRN PRN Reason: Nausea/Vomiting Last Admin: 12/06/16 01:19 Dose: 4 mg Polyethylene Glycol (Miralax) 17 gm PO BID [facility] Last Admin: 12/08/16 09:40 Dose: Not Given Sodium Bicarbonate (Sodium Bicarbonate Tab) 1,300 mg PO 0800,1600 [facility] Last Admin: 12/08/16 08:38 Dose: 1,300 mg - Labs Labs: 12/08/16 07:30 12/08/16 07:30 PT 10.7 Seconds (9.9-11.8) 12/01/16 10:21 INR 0.99 (0.93-1.08) 12/01/16 10:21 APTT 29.5 Seconds (23.7-30.8) 12/07/16 20:02
[2016-12-08] MEDS ORDERED: Potassium Chloride 20 mEq ER Tab PO ONE (11:31)
--- NOTE | 2016-12-08 14:25 | PN ---
DATE: 12/08/2016 The patient denies any chest pain or shortness of breath. She appears upset because of the option of hemodialysis and the choice of which hemodialysis that was presented to her by the staff research associate. No reported ventricular arrhythmia except for PVCs. PHYSICAL EXAMINATION: VITAL SIGNS: Blood pressure 141/76, heart rate 107, temperature 98.5, respirations 20. HEENT: Pale conjunctivae. CHEST: Clear. HEART: S1, S2 regular. ABDOMEN: Soft. EXTREMITIES: No edema. LABORATORIES: Hemoglobin and hematocrit 8.7 and 24.8, white count and platelet count 5.8 and 143,000 . Today's SMA-7: Sodium 136, potassium 3.6, chloride 104, CO2 19, glucose 91, BUN 59, creatinine 5. 7. Blood culture no growth after 5 days. Urine culture is positive for E. coli. ASSESSMENT: 1. Hypertension. 2. Non-ST elevation myocardial infarction. 3. Cardiomyopathy. 4. Urinary tract infection. 5. Marijuana abuse. 6. Anemia. 7. Advanced renal insufficiency. RECOMMENDATIONS: Continue labetalol 400 mg twice a day and labetalol at mg intravenously q. 6 hours p.r.n. Continue Plavix 75 mg once a day, Norvasc at 10 mg once a day, minoxidil at 5 mg twice a day, Lipitor at 20 mg once a day, subcutaneous heparin 5000 units twice a day, aspirin 81 mg once a day, hydralazine 100 mg t.i.d. and Ancef at 1 gram intravenously twice a day. If the patient reache s decision of hemodialysis, then cardiac catheterization will be considered. Misael Carson MD cc: [id number] TT: 12/08/2016 14:24:29 Confirmation # [id number] Dictation # [id number] en
--- NOTE | 2016-12-08 15:33 | PN ---
DATE: 12/08/2016 The patient is a 51-year-old female. The patient was sitting on the bedside with her friend, a little bit anxious, crying, upset because today she heard news that maybe in the future she had to go for dialysis. gave her options for peritoneal dialysis and hemodialysis and I had length of time discussion done with the patient and patient's daughter and explained her this is not right now emergency, maybe in the future. Otherwise, no chest pain, no abdominal pain. No nausea, vomiting, diarrhea. No hematuria, no hematochezia. No swelling of the legs. No chest pain, no palpitation. No headache, no dizziness. PHYSICAL EXAMINATION: VITAL SIGNS: Temperature 98.5, pulse 72, blood pressure 131/74, respiratory rate 20. HEENT: Head normocephalic, atraumatic. Eyes, PERRLA. Extraocular muscles intact. Conjunctivae clear. Nose patent. Mucous membranes moist. NECK: Supple. No carotid bruit, no JVD, no thyromegaly. CHEST: Bilaterally symmetrical. HEART: S1, S2 positive. LUNGS: Clear to auscultation. ABDOMEN: Soft. Bowel sounds positive. No organomegaly. EXTREMITIES: No edema, no cyanosis. NEUROLOGIC: The patient is awake, alert, moving all 4 extremities. No focal deficit. MEDICATIONS: Ancef, hydralazine, aspirin, Benadryl, Catapres, docusate, Coreg, heparin drip, heparin subcutaneously, Lipitor, hydralazine, aspirin, Benadryl, Catapres TTS, ferrous sulfate, MiraLax, Norvasc, Plavix, sodium bicarbonate, labetalol, vitamin D, Zofran. LABORATORIES: White blood cells 5.8, hemoglobin 8.7, hematocrit 24.8, platelets 143. Sodium 136, potassium 3.6, BUN 59, ASSESSMENT AND PLAN: The patient is a 51-year-old lady with anemia, history of hypokalemia, renal insufficiency, has history of accelerated hypertension, status post sepsis from urinary tract infection with Escherichia coli, hypertension, poorly controlled, history of glaucoma, history of cataract, sickle cell trait, status post section, obesity. Continue cefazolin, day 6, since Escherichia coli is sensitive to it 7 days therapy of antibiotics. Follow up cardiology workup and recommendation for non-ST elevation myocardial infarction. Had history of severe anemia, history of hypertensive urgency with associated posterior reversible encephalopathy syndrome. Discussion done with patient and patient's daughter dialysis options , education done. We will follow up. Karli Laureano MD cc: [id number] TT: 12/08/2016 14:01:17 Confirmation # [id number] Dictation # [id number] en MTDD
[2016-12-09 06:06] VITALS: RESP 20; O2SAT 99
[2016-12-09 08:44] LABS: HEMATOCRIT 24.6 % (36.0-48.0); MEAN CELL VOLUME 83.4 fL (80.0-105.0); MEAN CORPUSCULAR HEMOGLOBIN 29.5 pg (25.0-35.0); MEAN CORPUSCULAR HGB CONC 35.4 g/dl (31.0-37.0); MEAN PLATELET VOLUME 11.7 fl (7.0-11.0); RED CELL DISTRIBUTION WIDTH 14.5 % (11.5-14.5); WHITE BLOOD COUNT 5.4 10^3/ul (4.5-11.0)
[2016-12-09 08:52] LABS: ALB/GLOB RATIO 1.2 (1.1-1.8); BILIRUBIN,TOTAL 0.3 mg/dL (0.2-1.3); CALCIUM 9.3 mg/dL (8.4-10.5); POTASSIUM 3.8 mmol/L (3.6-5.0); TOTAL PROTEIN 7.1 g/dL (5.8-8.3)
[2016-12-09] MEDS: POLYETHYLENE GLYCOL 3350 17 GM/Dose PACKET PO SCH (09:50)
[2016-12-09] MEDS: ceFAZolin 1 gm in NS 1 GM/100 ML BAG IVPB SCH (09:56)
--- NOTE | 2016-12-09 10:29 | CP.PCM.PN ---
Subjective - Date & Time of Evaluation Date of Evaluation: 12/09/16 Time of Evaluation: 10:26 - Subjective Subjective: Follow up Nephrology Covering Note For Dr Rosen Assessment: HTN chronic kidney disease (N12.9) Acute Kidney Injury (N17.9) likely due to HTN emergency and BP fluctuations/ hemodynamic: worsening Chronic Kidney Disease Stage 4 (N18.4) close to stage 5 with 429 mg proteinuria likely due to HTN vitamin D with Secondary hyperparathyroidism (E21.1), uncontrolled severe Hypertension with emergency: stable now metabolic acidosis secondary HTN work up negative UTI Plan No emergent need for renal replacement therapy at this time. Had discussed future dialysis options with her including PD and HD. She said that had made decision for HD. Explained to patient that based upon her current level of kidney function, dialysis to be anticipated in near future Hypertension control with meds as ordered. Patient not on ACEI/ARB due to ESTEFANI. continue with norvasc 10 mg/day, minoxidil 5 mg bid, labetalol 400 mg BID and hydralazine 100 mg TID, clonidine patch lowered to 0.2 mg with PRN labetalol. Monitor Input/Output, daily weights and renal function with basic metabolic panel continue with Iron supplements, sodium bicarb and continue with Vit D. also dosed with aranesp today 40 mcg 12/07/16 normal plasma metanephrines. Her imaging neg for adrenal mass pt declined cardiac cath due to risk of contrast nephropathy. further management as per cardiology. Dose meds/antibiotics for reduced GFR ~10. Avoid fleets enema/magnesium based laxatives. Avoid nephrotoxins/NSAIDs/ iodinated contrast (unless needed emergently). Glycemic control Further work up for as per primary team Thanks for allowing me to participate in care of your patient. Please call if any Qs. Dr Nickolas June Office: [phone] Subjective: Noted events overnight. Patients feels okay. Denies chest pain, palpitation, shortness of breath, leg swelling. No urinary complaints. reports nausea due to sodium bicarb tab but not otherwise Physical Examination: General Appearance: Comfortable, in no acute respiratory distress, co- operative. Vitals reviewed and noted as below Lungs: Normal respiratory rate/effort. Breath sounds bilateral equal and clear Heart: Normal rate. s1s2 normal. No rub or gallop. Extremities: no edema. Neurological: Patient is alert, awake and oriented to person, place and time. No focal deficit. Strength bilateral appropriate and equal. no asterixis Skin: Warm and dry. Normal turgor. No rash. Palpitation: Normal elasticity for age Abdomen: Abdomen is soft. Bowel sounds +. There is no abdominal tenderness, no guarding/rigidity or organomegaly : kidney or bladder not palpable Labs/imaging reviewed. Past medical history, past surgical history, family history, social history, allergy reviewed work up: CXR and CT abdomen unremarkable UA: nit and le + with 100 protein no blood BNP 9200 albumin 4.4 MONA/ANCA/Hep B and C negative JAMIE negative on doppler Zacarias 16 renin 2 metanephrine urine elevated at 1635. now plasma metanephrines WNL Vit D <16 PTH 132 TSAT 11% Ferritin 233 Objective - Vital Signs/Intake and Output Vital Signs (last 24 hours): Temp Pulse Resp BP Pulse Ox 98.0 F 68 20 109/52 L 99 12/09/16 05:58 12/09/16 05:58 12/09/16 05:58 12/09/16 09:59 12/09/16 05:58 Intake and Output: 12/09/16 12/09/16 06:59 18:59 Intake Total 600 Output Total 1 Balance 599 - Medications Medications: Current Medications Acetaminophen (Tylenol 325mg Tab) 650 mg PO Q4H PRN PRN Reason: headache Amlodipine Besylate (Norvasc) 10 mg PO DAILY [facility] Last Admin: 12/09/16 09:59 Dose: 10 mg Aspirin (Aspirin Chewable) 81 mg PO DAILY [facility] Last Admin: 12/09/16 09:56 Dose: 81 mg Atorvastatin Calcium (Lipitor) 20 mg PO DIN [facility] Last Admin: 12/08/16 17:35 Dose: 20 mg Cholecalciferol (Vitamin D) 1,000 iu PO DAILY [facility] Last Admin: 12/09/16 10:00 Dose: 1,000 iu Clonidine HCl (Catapres-Tts2 0.2 Mg/24 Hr) 1 patch TD Q7D@1000 [facility] Last Admin: 12/09/16 09:57 Dose: 1 patch Clopidogrel Bisulfate (Plavix) 75 mg PO DAILY [facility] Last Admin: 12/09/16 09:59 Dose: 75 mg Diphenhydramine HCl (Benadryl) 25 mg PO HS PRN PRN Reason: Insomnia Last Admin: 12/08/16 22:05 Dose: 25 mg Docusate Sodium (Colace) 100 mg PO TID [facility] Last Admin: 12/09/16 09:50 Dose: Not Given Famotidine (Pepcid) 40 mg PO HS [facility] Last Admin: 12/08/16 22:05 Dose: 40 mg Ferrous Gluconate (Fergon) 324 mg PO 0900,1300,1700 [facility] Last Admin: 12/09/16 09:56 Dose: 324 mg Heparin Sodium (Porcine) (Heparin) 5,000 units SC Q12 [facility] PRN Reason: Protocol Last Admin: 12/09/16 09:58 Dose: 5,000 units Hydralazine HCl (Apresoline) 100 mg PO TID [facility] Last Admin: 12/09/16 09:56 Dose: 100 mg Cefazolin Sodium (Ancef 1gm In Ns) 1 gm in 100 mls @ 100 mls/hr IVPB Q12 [facility] PRN Reason: Protocol Last Admin: 12/09/16 09:56 Dose: 100 mls/hr Labetalol HCl (Trandate) 20 mg IV Q6H PRN PRN Reason: Systolic Blood Pressure Labetalol HCl (Trandate) 400 mg PO BID [facility] Last Admin: 12/09/16 09:59 Dose: 400 mg Minoxidil (Minoxidil) 5 mg PO BID [facility] Last Admin: 12/09/16 09:58 Dose: 5 mg Ondansetron HCl (Zofran Inj) 4 mg IVP Q4H PRN PRN Reason: Nausea/Vomiting Last Admin: 12/06/16 01:19 Dose: 4 mg Polyethylene Glycol (Miralax) 17 gm PO BID [facility] Last Admin: 12/09/16 09:50 Dose: Not Given Sodium Bicarbonate (Sodium Bicarbonate Tab) 1,300 mg PO 0800,1600 [facility] Last Admin: 12/09/16 07:48 Dose: 1,300 mg - Labs Labs: 12/09/16 08:30 12/09/16 08:30 PT 10.7 Seconds (9.9-11.8) 12/01/16 10:21 INR 0.99 (0.93-1.08) 12/01/16 10:21 APTT 29.5 Seconds (23.7-30.8) 12/07/16 20:02
--- NOTE | 2016-12-09 11:23 | PN ---
DATE: 12/09/2016 The patient denies chest pain, dizziness or headache. She is in sinus rhythm on the monitor. PHYSICAL EXAMINATION: VITAL SIGNS: Blood pressure 109/52, heart rate 68, temperature 98, respirations 20. HEENT: Pale conjunctivae. CHEST: Clear. HEART: S1, S2 regular. EXTREMITIES: No edema. LABORATORIES: Hemoglobin and hematocrit 8.7 and 24.6, white count and platelet count are 5.4 and 141 ,000. SMA-7: Sodium 134, potassium 3.8, chloride 102, CO2 20, glucose 91, BUN 62, creatinine 6.2. ASSESSMENT: 1. Status post non-ST elevation myocardial infarction. 2. Advanced renal insufficiency. 3. Cardiomyopathy. 4. Anemia. RECOMMENDATIONS: Continue labetalol 400 mg twice a day, Plavix 75 mg once a day. Change Pepcid to 2 0 mg once a day. Continue Norvasc at 10 mg once a day, minoxidil 5 mg twice a day, Lipitor at 20 mg once a day, subcutaneous heparin 5000 units q. 8 hours, clonidine patch 0.3 mg weekly, aspirin 81 mg once a day, Ancef 1 gram intravenously twice a day. The patient did accept idea of hemodialysis. Ho wever, she wants to go home first and then have it arranged as an outpatient. Misael Carson MD cc: [id number] TT: 12/09/2016 11:23:15 Confirmation # [id number] Dictation # [id number]
[2016-12-09 12:18] VITALS: BP 125/79; PULSE 66; TEMP 98.3
--- NOTE | 2016-12-09 15:08 | PN ---
DATE: 12/09/2016 SUBJECTIVE: The patient seen earlier this morning in 269, bed 1. The patient is in no acute distres s, nontoxic, no fevers and chills. PHYSICAL EXAMINATION: VITAL SIGNS: Temperature is 98, blood pressure is 120/70, respiratory rate of 16. HEENT: Unremarkable. NECK: Supple. LUNGS: Decreased breath sounds. HEART: Normal S1, S2. ABDOMEN: Soft. LABORATORY EXAMINATION: Reveals a white count of 5.4, hemoglobin of 8, platelets of 141. Chemistrie s reveal the BUN of 62, creatinine of 6.2. Urinalysis is noted. Microbiology reveals E. coli in the urine. The blood cultures have no growth. ASSESSMENT AND PLAN: A 51-year-old female seen earlier this morning in room 269, bed 1, with urinary tract infection with Escherichia coli, improving and acute non-ST elevation myocardial infarction an d poorly controlled hypertension, history of hypertensive urgency and sepsis and history of ____, now on day #7 of cefazolin, as recommended by Dr. Vance yesterday complete 7 days of antibiotics. Today will be the last day. Case discussed with nurse, ____. Kobe Goyal MD cc: [id number] TT: 12/09/2016 15:07:38 Confirmation # [id number] Dictation # [id number] tn
== END 2016-12-09 16:13 | disposition home or self-care (01) | DRG 871 ==
LOC: ED 08:39 → ERH 12:08 → 2RSO 14:02 → CCU 12-02 12:39 → OBSVTOIN 12-02 14:10 → 5RSO 12-04 17:58 → 2RNO 12-06 02:36 → CCU 12-06 03:52 → 2RNO 12-07 16:34
PROVIDERS: ADMIT Internal Medicine; ATTEND Internal Medicine
DX: A41.9 Sepsis, unspecified organism (principal); I21.4 Non-ST elevation (NSTEMI) myocardial infarction; I13.2 Hypertensive heart and chronic kidney disease with heart failure and with stage 5 chronic kidney disease, or end stage renal disease; I67.83 Posterior reversible encephalopathy syndrome; N17.9 Acute kidney failure, unspecified; E87.2 Acidosis; I42.0 Dilated cardiomyopathy; N18.5 Chronic kidney disease, stage 5; N39.0 Urinary tract infection, site not specified; I50.20 Unspecified systolic (congestive) heart failure; I16.1 Hypertensive emergency; N25.81 Secondary hyperparathyroidism of renal origin; E87.8 Other disorders of electrolyte and fluid balance, not elsewhere classified; D57.1 Sickle-cell disease without crisis; E55.9 Vitamin D deficiency, unspecified; B96.20 Unspecified Escherichia coli [E. coli] as the cause of diseases classified elsewhere; E87.6 Hypokalemia; F11.10 Opioid abuse, uncomplicated; F12.10 Cannabis abuse, uncomplicated; G47.00 Insomnia, unspecified; H26.9 Unspecified cataract; H40.9 Unspecified glaucoma; H54.0 Blindness, both eyes; E61.1 Iron deficiency; E66.9 Obesity, unspecified; Z68.31 Body mass index [BMI] 31.0-31.9, adult; E78.5 Hyperlipidemia, unspecified; E83.39 Other disorders of phosphorus metabolism; E83.41 Hypermagnesemia; I16.0 Hypertensive urgency; I49.3 Ventricular premature depolarization; K59.00 Constipation, unspecified; Z79.899 Other long term (current) drug therapy; Z82.49 Family history of ischemic heart disease and other diseases of the circulatory system; Z83.3 Family history of diabetes mellitus; Z87.891 Personal history of nicotine dependence; R40.2412 Glasgow coma scale score 13-15, at arrival to emergency department; Z84.1 Family history of disorders of kidney and ureter; D35.00 Benign neoplasm of unspecified adrenal gland; R80.9 Proteinuria, unspecified

== ENCOUNTER 2017-07-29 07:15 | Emergency (ER) | payer BC ==
[2017-07-29 07:17] VITALS: BMI 25.4
[2017-07-29 07:27] VITALS: RESP 18; TEMP 97.8
[2017-07-29 08:04] LABS: BASO # 0.01 K/mm3 (0.0-2.0); BASO % 0.2 % (0.0-3.0); EOS # 0.1 (0.0-0.7); GRAN # 4.35 (1.4-6.5); GRAN % 66.9 % (50.0-68.0); HEMOGLOBIN 9.6 g/dL (12.0-16.0); LYMPH # 0.9 (1.2-3.4); LYMPH % 13.1 % (22.0-35.0); MEAN CELL VOLUME 84.5 fl (80.0-105.0); MEAN CORPUSCULAR HEMOGLOBIN 29.7 pg (25.0-35.0); MEAN CORPUSCULAR HGB CONC 35.2 g/dl (31.0-37.0); MEAN PLATELET VOLUME 12.2 fl (7.0-11.0); MONO # 1.2 (0.1-0.6); MONO % 17.8 % (1.0-6.0); RBC 3.23 10^6/uL (3.5-6.1); RED CELL DISTRIBUTION WIDTH 14.2 % (11.5-14.5); WHITE BLOOD COUNT 6.5 10^3/ul (4.5-11.0)
[2017-07-29 08:13] LABS: INR 0.99 (0.93-1.08); PARTIAL THROMBOPLASTIN TIME 32.2 Seconds (25.1-36.5); PROTHROMBIN TIME 11.4 SECONDS (9.4-12.5)
[2017-07-29 08:14] LABS: ALB/GLOB RATIO 1.3 (1.1-1.8); ALBUMIN 4.1 g/dL (3.0-4.8); CALCIUM 9.4 mg/dL (8.4-10.5)
--- NOTE | 2017-07-29 08:16 | ED PDOC ---
Arrival/HPI - General Chief Complaint: Weakness/Neurological Deficit Time Seen by Provider: 07/29/17 07:33 Historian: Patient - History of Present Illness Narrative History of Present Illness (Text): 07/29/17 07:40 52 year old female, with past medical history of hypertension and stage IV renal failure, presents to the Emergency department via EMS complaining of generalized weakness since this morning. Patient informs waking up with weakness unable to properly move her legs. Patient states visiting her primary care physician yesterday with no concerning results. Patient denies any fever, chills, nausea, vomiting, diarrhea, abdominal pain, chest pain, shortness of breath, slurred speech, unilateral weakness or any other complaints. PMD: Dr. Laureano Time/Duration: 1-3 hours Symptom Onset: Gradual Symptom Course: Unchanged Activities at Onset: Sleeping Context: Home Past Medical History - Provider Review Nursing Documentation Reviewed: Yes - Infectious Disease Hx of Infectious Diseases: None - Cardiac Hx Congestive Heart Failure: Yes Hx Hypertension: Yes Hx Pacemaker: No - Pulmonary Hx Respiratory Disorders: Yes (SMOKED CIGARETTES QUIT.) - Neurological Hx Paralysis: No - HEENT Hx HEENT Disorder: Yes Hx Blind: Yes Hx Cataracts: Yes Hx Glaucoma: Yes Other/Comment: LEFT EYE SURGERY - Renal Hx Renal Failure: Yes (STAGE 4 ARF) - Endocrine/Metabolic Hx Endocrine Disorders: Yes - Hematological/Oncological Hx Blood Disorders: No (SICKLE CELL TRAIT) Hx Sickle Cell Disease: Yes - Integumentary Hx Dermatological Disorder: No - Musculoskeletal/Rheumatological Hx Musculoskeletal Disorders: No - Gastrointestinal Hx Gastrointestinal Disorders: Yes (CONSTIPATION) - Genitourinary/Gynecological Hx Genitourinary Disorders: Yes (C/S X 4) - Psychiatric Hx Psychophysiologic Disorder: Yes (SMOKED CIGARETTES,ETOH USE.H/O) Hx Substance Use: Yes (MARIJUANA(LAST 3 DAYS AGO)) - Surgical History Hx Section: Yes Hx Eye Surgery: Yes (right eye) - Anesthesia Hx Anesthesia: Yes Hx Anesthesia Reactions: No Hx Malignant Hyperthermia: No - Suicidal Assessment Feels Threatened In Home Enviroment: No Family/Social History - Physician Review Nursing Documentation Reviewed: Yes Family/Social History: No Known Family HX Smoking Status: Former Smoker Hx Alcohol Use: Yes (QUIT 08/2016) Hx Substance Use: Yes (MARIJUANA(LAST 3 DAYS AGO)) Hx Substance Use Treatment: No Allergies/Home Meds Allergies/Adverse Reactions: Allergies No Known Allergies Allergy (Verified 12/01/16 16:46) Home Medications: Home Meds Medication Instructions Recorded Confirmed Carvedilol [Coreg] 12.5 mg PO BID 12/01/16 07/29/17 Doxazosin [Cardura] 4 mg PO BID 12/01/16 07/29/17 Sodium Bicarbonate Tab [Sodium 650 mg PO BID 12/01/16 07/29/17 Bicarbonate Tab] Spironolactone [Aldactone] 25 mg PO BID 12/01/16 07/29/17 cloNIDine [Catapres] 0.3 mg PO TID 12/01/16 07/29/17 Doxazosin [Cardura] 8 mg PO BID 07/15/17 07/29/17 Nifedipine [Nifedipine ER] 30 mg PO BID 07/15/17 07/29/17 hydrALAZINE [Apresoline] 100 mg PO TID 07/15/17 07/29/17 Atorvastatin [Lipitor] 20 mg PO DAILY 07/22/17 07/29/17 Clopidogrel [Plavix] 75 mg PO DAILY 07/22/17 07/29/17 Famotidine [Pepcid] 20 mg PO DAILY 07/22/17 07/29/17 Ferrous Sulfate [Feosol] 325 mg PO DAILY 07/22/17 07/29/17 Furosemide [Lasix] 40 mg PO DAILY 07/22/17 07/29/17 Minoxidil [Loniten] 10 mg PO BID 07/22/17 07/29/17 Torsemide [Demadex] 20 mg PO BID 07/22/17 07/29/17 Sodium Bicarbonate 650 mg PO BID 07/29/17 07/29/17 Review of Systems - Physician Review All systems were reviewed & negative as marked: Yes - Review of Systems Constitutional: Normal. absent: Fevers Eyes: Normal ENT: Normal Respiratory: Normal. absent: SOB Cardiovascular: Normal. absent: Chest Pain Gastrointestinal: Normal. absent: Abdominal Pain, Diarrhea, Nausea, Vomiting Genitourinary Female: Normal Musculoskeletal: Other (generalized weakness) Skin: Normal Neurological: Normal Endocrine: Normal Hemo/Lymphatic: Normal Psychiatric: Normal Physical Exam Vital Signs Reviewed: Yes Vital Signs Temp Pulse Resp BP Pulse Ox 07/29/17 13:09 97.8 F 69 18 103/60 02/09/18 11:17 69 18 103/60 98 07/29/17 07:15 97.8 F 65 18 117/71 99 Temperature: Afebrile Blood Pressure: Normal Pulse: Regular Respiratory Rate: Normal Appearance: Positive for: Non-Toxic, Other (generally weak ) Pain Distress: None Mental Status: Positive for: Alert and Oriented X 3 - Systems Exam Head: Present: Atraumatic, Normocephalic Pupils: Present: PERRL Extroacular Muscles: Present: EOMI Conjunctiva: Present: Normal Mouth: Present: Moist Mucous Membranes Neck: Present: Normal Range of Motion Respiratory/Chest: Present: Clear to Auscultation, Good Air Exchange. No: Respiratory Distress, Accessory Muscle Use Cardiovascular: Present: Regular Rate and Rhythm, Normal S1, S2. No: Murmurs Abdomen: Present: Normal Bowel Sounds. No: Tenderness, Distention, Peritoneal Signs Back: Present: Normal Inspection Upper Extremity: Present: Normal Inspection. No: Cyanosis, Edema Lower Extremity: Present: Normal Inspection. No: Edema Neurological: Present: GCS=15, CN II-XII Intact, Speech Normal Skin: Present: Warm, Dry, Normal Color. No: Rashes Psychiatric: Present: Alert, Oriented x 3, Normal Insight, Normal Concentration Medical Decision Making ED Course and Treatment: 07/29/17 07:40 Impression: 52 year old female presents to the Emergency department complaining of generalized weakness. consider metaoblic in fectious, intracrnail etiology, tia /cva, less likely gbs. Plan: -- CT of Head -- EKG -- Labs -- Chest X-ray -- Urinalysis -- US of Lower Extremity -- Reassess and disposition Progress Notes: 07/29/17 08:00 EKG: Ordered, reviewed, and independently interpreted the EKG. Rate : 63 BPM Rhythm : NSR Interpretation : LVH repolarization abnormality. 07/29/17 09:43 CT of head reviewed by radiologist, shows normal head CT. 07/29/17 10:30 Chest X-ray reviewed by radiologist, shows no active disease. 07/29/17 13:06 US of extremity reviewed, shows no sonographic evidence for deep venous thrombosis in the visualized segments of both lower extremities. 07/29/17 18:25 pt signed out ama shortly after admission. ambulatory taking po. dr austin notified. 02/09/18 18:27 - Lab Interpretations Lab Results: 07/29/17 07:45 07/29/17 07:45 Lab Results 07/29/17 11:30: Alcohol, Quantitative < 10 07/29/17 09:45: Urine Color Yellow, Urine Appearance Sl cloudy, Urine pH 6.5, Ur Specific [place] 1.010, Urine Protein Trace H, Urine Glucose (UA) Negative, Urine Ketones Negative, Urine Blood Trace-intact H, Urine Nitrate Negative, Urine Bilirubin Negative, Urine Urobilinogen 0.2, Ur Leukocyte Esterase Large H , Urine RBC 0 - 2, Urine WBC Tntc, Ur Epithelial Cells 0 - 2, Urine Bacteria Small, Urine HCG, Qual Negative 07/29/17 07:45: Sodium 137, Potassium 4.0, Chloride 101, Carbon Dioxide 25, Anion Gap 15, BUN 55 H, Creatinine 5.1 H, Est GFR ( Amer) 11, Est GFR ( Non-Af Amer) 9, Random Glucose 94, Calcium 9.4, Magnesium 2.0, Total Bilirubin 0.4, AST 22, ALT 29, Alkaline Phosphatase 50, Lactate Dehydrogenase 354, Total Creatine Kinase 118, Troponin I 0.05 D, Total Protein 7.1, Albumin 4.1, Globulin 3.0, Albumin/Globulin Ratio 1.3 07/29/17 07:45: PT 11.4, INR 0.99, APTT 32.2 07/29/17 07:45: WBC 6.5 D, RBC 3.23 L, Hgb 9.6 L, Hct 27.3 L, MCV 84.5, MCH 29.7, MCHC 35.2, RDW 14.2, Plt Count 144, MPV 12.2 H, Gran % 66.9, Lymph % (Auto ) 13.1 L, [place] % (Auto) 17.8 H, Eos % (Auto) 2.0, Baso % (Auto) 0.2, Gran # 4.35 , Lymph # (Auto) 0.9 L, [place] # (Auto) 1.2 H, Eos # (Auto) 0.1, Baso # (Auto) 0.01 - RAD Interpretation Radiology Orders: 07/29/17 07:38 CHEST ONE VIEW [RAD] Stat 07/29/17 08:16 HEAD W/O CONTRAST [CT] Stat DUPLEX LOWER EXTRM VEIN BILAT [US] Stat - Medication Orders Current Medication Orders: Discontinued Medications Aspirin (Aspirin) 325 mg PO STAT STA Stop: 07/29/17 09:51 Last Admin: 07/29/17 09:57 Dose: 325 mg Atorvastatin Calcium (Lipitor) 20 mg PO DAILY [facility] Last Admin: 07/29/17 13:18 Dose: Not Given Non-Admin Reason: Patient Refused Cholecalciferol (Vitamin D) 1,000 intlu PO DAILY [facility] Clopidogrel Bisulfate (Plavix) 75 mg PO DAILY [facility] Famotidine (Pepcid) 20 mg PO DAILY [facility] Last Admin: 07/29/17 13:02 Dose: Not Given Non-Admin Reason: Patient Refused Ferrous Sulfate (Feosol) 324 mg PO DAILY [facility] Ferrous Sulfate (Feosol) 324 mg PO .EXTRA DOSE ONE Stop: 07/29/17 12:31 Last Admin: 07/29/17 13:02 Dose: Not Given Non-Admin Reason: Patient Refused Ceftriaxone Sodium (Rocephin 2 Gm Ivpb) 2 gm in 100 mls @ 100 mls/hr IVPB STAT STA PRN Reason: Protocol Stop: 07/29/17 10:57 Last Admin: 07/29/17 10:30 Dose: 100 mls/hr eMAR Start Stop Document 07/29/17 10:30 SRE (Rec: 07/29/17 10:39 [email or web address] [id number]) Intravenous Solution Start Date 07/29/17 Start Time 10:00 End Date 07/29/17 End time 11:00 Total Infusion Time 60 Sodium Chloride (Sodium Chloride 0.9%) 500 mls @ 999 mls/hr IV .Q31M STA Stop: 07/29/17 13:14 Last Admin: 07/29/17 13:19 Dose: 999 mls/hr eMAR Start Stop Document 07/29/17 13:19 JKristi (Rec: 07/29/17 13:19 [id number] Intravenous Solution Start Date 07/29/17 Start Time 13:19 End Date 07/29/17 End time 15:00 Total Infusion Time 101 Non-Formulary Medication (Ferrous Sulfate [Feosol]) 325 mg PO DAILY [facility] Pneumococcal Polyvalent Vaccine (Pneumovax 23 Vaccine) 0.5 ml IM .ONCE ONE Stop: 07/29/17 13:23 NIHSS Scale ([place]) Time Performed: 07:14 - How Severe is the Stoke 24 hours post onset S/S Level of Consciousness: 0=Alert LOC to Questions: 0=Both comments correct LOC to commands: 0=Obeys both correctly Best Gaze: 0=Normal Visual: 0=No visual loss Facial: 0=Normal Motor Arm - Left: 0=No drift Motor Arm - Right: 0=No drift Motor Leg - Left: 0=No drift Motor Leg - Right: 0=No drift Limb Ataxia: 0=Absent Sensory: 0=Normal Best Language: 0=No aphasia Dysarthia: 0=Normal articulation Extinction & Inattention (Neglect): 0=Normal, no object Score: 0 Risk Level: No Stroke Risk rTPA Inclusion/Exclusion - Refusal of Treatment Patient Refused Treatment: No - Inclusion Criteria for Altepase Patient is 18 years or Older: Yes The Clinical Diagnosis of Ischemic Stroke That is Causing a Potentially Disabling Neurological Deficit: No Time of Onset is Well Established to be Less Than 270 Minute Before Treatment Would Begin: No Risk/Benefit Discussed With Patient/Family Member Present: No - Scribe Statement The provider has reviewed the documentation as recorded by the Scribe Es Johnson. All medical record entries made by the Scribe were at my direction and personally dictated by me. I have reviewed the chart and agree that the record accurately reflects my personal performance of the history, physical exam, medical decision making, and the department course for this patient. I have also personally directed, reviewed, and agree with the discharge instructions and disposition. Disposition/Present on Arrival - Present on Arrival Any Indicators Present on Arrival: No History of DVT/PE: No History of Uncontrolled Diabetes: No Urinary Catheter: No History of Decub. Ulcer: No History Surgical Site Infection Following: None - Disposition Have Diagnosis and Disposition been Completed?: Yes Diagnosis: Bilateral leg weakness Disposition: AGAINST MEDICAL ADVICE Disposition Time: 07:00 Condition: UNKNOWN Discharge Instructions (ExitCare): Weakness (ED), Against Medical Advice (ED) Additional Instructions: please follow up with your doctor/clinic. return to er with worsening symptoms or concerns. Referrals: Karli Laureano MD [Primary Care Provider] - Follow up with primary Francisco Anne MD [Staff Provider] - Follow up with primary Forms: [employer] ([place]ian)
[2017-07-29 08:21] LABS: TROPONIN I 0.05 ng/mL
--- NOTE | 2017-07-29 09:12 | CT ---
PROCEDURE: CT HEAD WITHOUT CONTRAST. HISTORY: weakness COMPARISON: None available. TECHNIQUE: Axial computed tomography images were obtained through the head/brain without intravenous contrast. Radiation dose: Total exam DLP = 960 mGy-cm. This CT exam was performed using one or more of the following dose reduction techniques: Automated exposure control, adjustment of the mA and/or kV according to patient size, and/or use of iterative reconstruction technique. FINDINGS: HEMORRHAGE: No intracranial hemorrhage. BRAIN: No mass effect or edema. No atrophy or chronic microvascular ischemic changes. VENTRICLES: Unremarkable. No hydrocephalus. CALVARIUM: Unremarkable. PARANASAL SINUSES: Unremarkable as visualized. No significant inflammatory changes. MASTOID AIR CELLS: Unremarkable as visualized. No inflammatory changes. OTHER FINDINGS: None. IMPRESSION: Normal CT of the Head.
[2017-07-29 09:50] LABS: PH,URINE 6.5 (4.7-8.0); URINE BILIRUBIN NEGATIVE (NEGATIVE); URINE BLOOD TRACE-INTACT (NEGATIVE); URINE GLUCOSE (UA) NEGATIVE (NEGATIVE); URINE LEUKOCYTE ESTERASE LARGE Leu/uL (NEGATIVE); URINE NITRATE NEGATIVE (NEGATIVE); URINE PROTEIN TRACE mg/dL (<30 mg/dL); URINE UROBILINOGEN 0.2 E.U./dL (<1 E.U./dL)
[2017-07-29 09:51] LABS: URINE APPEARANCE SL CLOUDY (CLEAR); URINE COLOR YELLOW (YELLOW)
[2017-07-29 09:55] LABS: HCG,QUALITATIVE URINE NEGATIVE (NEGATIVE)
[2017-07-29] MEDS ORDERED: cefTRIAXone 2 GM IN NS 2 GM/100 ML BAG IVPB STA (09:58)
[2017-07-29 10:03] LABS: URINE BACTERIA SMALL (NEG); URINE EPITHELIAL CELLS 0 - 2 /hpf (0-5); URINE RBC 0 - 2 /hpf (0-2); URINE WBC TNTC /hpf (0-6)
--- NOTE | 2017-07-29 10:17 | US ---
HISTORY: Leg pain and swelling. Evaluate for DVT PHYSICIAN(S): Charlie Donis MD. TECHNIQUE: Duplex sonography and color-flow Doppler with graded compression were used to evaluate the deep venous systems of both lower extremities. FINDINGS: The visualized deep venous systems of both lower extremities are sonographically normal and compressible. Normal wave forms and augmentation are seen. There is no sonographic evidence for deep venous thrombosis in the visualized segments of both lower extremities. IMPRESSION: No sonographic evidence for deep venous thrombosis in the visualized segments of both lower extremities.
--- NOTE | 2017-07-29 11:12 | RAD ---
PROCEDURE: CHEST RADIOGRAPH, 1 VIEW HISTORY: weakness COMPARISON: Comparison is made with 12/01/2016. FINDINGS: LUNGS: No evidence of new infiltrate or consolidation in the lungs. PLEURA: No pneumothorax or pleural fluid seen. CARDIOVASCULAR: The cardiac silhouette is prominent in size P OSSEOUS STRUCTURES: No significant abnormalities. VISUALIZED UPPER ABDOMEN: Normal. OTHER FINDINGS: None. IMPRESSION: No active disease.
[2017-07-29 11:18] VITALS: BP 103/60; PULSE 69; O2SAT 98
--- NOTE | 2017-07-29 11:59 | CP.PCM.CON ---
<Ana Adams - Last Filed: 07/29/17 12:32> History of Present Illness - History of Present Illness History of Present Illness: Neurology consult: Leg weakness Ms Jessica Jarrett, 52 AA F, active smoker with PMH sickle cell trait, hypertension and stage IV renal failure, presents to the Emergency department via EMS complaining of generalized weakness since this morning. Patient informs waking up with weakness unable to properly move her legs. Patient states visiting her primary care physician yesterday with no concerning results. This AM when she woke up, she felt weakness in her thighs that she could not move her legs to get out of bed. In the ED, pt complaints of losing bladder function , and states that she has pain in her anterior thighs, but lost feelings in her inner thighs. During physical examination, when I palpate her medial thighs, pt states that she could not feel my touch. She is able to move all extremities equally. Motor on plantar flexion 5/5 bilaterally. Pt refused MRI lumbar for fear of kidney. I have explained to the patient that the symptoms are suggestive of nerve compression that can lead to permanent paralysis, and it is a medical emergency. The imaging does not require contrast, which will not hurt the kidney. It is magnetic, so no radiation. Pt insists leaving against medical advice. Dr Ngo, ED physician, came and examined the patient. During Dr Ngo physical examination, pt sit up from sleeping, without pain. Pt is able to feel his palpation on her anterior and medial thighs. Pt signed out AMA Denies fever, chills, nausea, vomiting, diarrhea, abdominal pain, chest pain, shortness of breath, slurred speech, unilateral weakness or any other complaints. Upon ED arrival. BP 103/60 Hb 9.6. Normal head CT NIHSS 0 PMD: Dr. Laureano PMH: SICKLE CELL TRAIT CKD, stage 4 Blind; glaucoma, cataract PSH: x 4 R eye surgery FH: Mom has DM2, HTN, ESRD on HD SH: Smoker. + ETOH. Last use mariguanan 3 days ago All: NKDA Med: plavix, Lipitor 20 carvedilol, nifedipine, doxazosin, torsemide, minoxidil, aldactone, hydralazine, lasix, clonidine Bicarb 650 BID, vit D, feosol 325 Past Patient History - Infectious Disease Hx of Infectious Diseases: None - Past Medical History & Family History Past Medical History?: Yes - Past Social History Smoking Status: Former Smoker - CARDIAC Hx Congestive Heart Failure: Yes Hx Hypertension: Yes Hx Pacemaker: No - PULMONARY Hx Respiratory Disorders: Yes (SMOKED CIGARETTES QUIT.) - NEUROLOGICAL Hx Paralysis: No - HEENT Hx HEENT Problems: Yes Hx Blind: Yes Hx Cataracts: Yes Hx Glaucoma: Yes Other/Comment: LEFT EYE SURGERY - RENAL Hx Renal Failure: Yes (STAGE 4 ARF) - ENDOCRINE/METABOLIC Hx Endocrine Disorders: Yes - HEMATOLOGICAL/ONCOLOGICAL Hx Blood Disorders: No (SICKLE CELL TRAIT) Hx Sickle Cell Disease: Yes - INTEGUMENTARY Hx Dermatological Problems: No - MUSCULOSKELETAL/RHEUMATOLOGICAL Hx Musculoskeletal Disorders: No - GASTROINTESTINAL Hx Gastrointestinal Disorders: Yes (CONSTIPATION) - GENITOURINARY/GYNECOLOGICAL Hx Genitourinary Disorders: Yes (C/S X 4) - PSYCHIATRIC Hx Psychophysiologic Disorder: Yes (SMOKED CIGARETTES,ETOH USE.H/O) Hx Substance Use: Yes (MARIJUANA(LAST 3 DAYS AGO)) - SURGICAL HISTORY Hx Section: Yes Hx Eye Surgery: Yes (right eye) - ANESTHESIA Hx Anesthesia: Yes Hx Anesthesia Reactions: No Hx Malignant Hyperthermia: No Meds Allergies/Adverse Reactions: Allergies Allergy/AdvReac Type Severity Reaction Status Date / Time No Known Allergies Allergy Verified 12/01/16 16:46 Physical Exam - Constitutional Appears: No Acute Distress - Head Exam Head Exam: ATRAUMATIC, NORMAL INSPECTION, NORMOCEPHALIC - Eye Exam Eye Exam: EOMI, Normal appearance, PERRL. absent: Scleral icterus Pupil Exam: NORMAL ACCOMODATION - ENT Exam ENT Exam: Mucous Membranes Moist - Neck Exam Additional comments: supple - Extremities Exam Additional comments: Speech: No aphasia Motor: move all extremieites equally. plantar flexion 5/5 bilaterally Sensory: (see HPI) - Neurological Exam Neurological exam: Alert, Oriented x3 - Psychiatric Exam Psychiatric exam: Anxious - Skin Skin Exam: Dry, Normal Color, Warm Results - Vital Signs Recent Vital Signs: Last Vital Signs Temp 97.8 F 07/29/17 07:15 Pulse 69 07/29/17 11:17 Resp 18 07/29/17 11:17 BP 103/60 07/29/17 11:17 Pulse Ox 98 07/29/17 11:17 - Labs Result Diagrams: 07/29/17 07:45 07/29/17 07:45 <Herbert Anne - Last Filed: 07/29/17 14:04> Meds - Medications Medications: Current Medications Atorvastatin Calcium (Lipitor) 20 mg PO DAILY [facility] Last Admin: 07/29/17 13:18 Dose: Not Given Cholecalciferol (Vitamin D) 1,000 intlu PO DAILY [facility] Clopidogrel Bisulfate (Plavix) 75 mg PO DAILY [facility] Famotidine (Pepcid) 20 mg PO DAILY [facility] Last Admin: 07/29/17 13:02 Dose: Not Given Ferrous Sulfate (Feosol) 324 mg PO DAILY [facility] Results - Vital Signs Recent Vital Signs: Last Vital Signs Temp 97.8 F 07/29/17 13:09 Pulse 69 07/29/17 13:09 Resp 18 07/29/17 13:09 BP 103/60 07/29/17 13:09 Pulse Ox 98 07/29/17 11:17 - Labs Result Diagrams: 07/29/17 07:45 07/29/17 07:45 Labs: Laboratory Results - last 24 hr 07/29/17 11:30 Alcohol, Quantitative < 10 Attending/Attestation - Attestation I have personally seen and examined this patient.: Yes I have fully participated in the care of the patient.: Yes I have reviewed all pertinent clinical information: Yes
[2017-07-29] MEDS ORDERED: Non Formulary Medication (Ferrous Sulfate [Feosol] 325 MG) PO SCH (12:30)
[2017-07-29] MEDS ORDERED: Sodium Chloride 0.9% 500 ML IV STA (12:44)
[2017-07-29] MEDS ORDERED: Pneumococcal 23-Valent Vaccine IM ONE (13:22)
[2017-07-29] MEDS ORDERED: Influenza Vaccine 60 mcg/0.5 mL SYR (4YR UP) IM ONE (13:22)
--- NOTE | 2017-07-29 23:42 | CARD ---
APPROVED REPORT EKG Measurement Heart [id number] <Conclusion> Normal sinus rhythm Possible Left atrial enlargement Left ventricular hypertrophy Cannot rule out Septal infarct, age undetermined ST & T wave abnormality, consider inferolateral ischemia Abnormal ECG
--- NOTE | 2017-07-30 03:26 | CON ---
DATE: NEPHROLOGY CONSULTATION HISTORY OF PRESENT ILLNESS: Patient is a 52-year-old female well-known to our service with past medical history of malignant hypertension and PRES syndrome, CKD, stage IV/V, presented to ED with complaint of leg weakness bilaterally. Nephrology being consulted for advanced CKD care. Patient last seen in our office yesterday, at that time, denies any complaints, did not mention any leg weakness, however, it was noted that she had lost 8 pounds since previous 6 weeks; patient attributed weight loss to improved diet; patient at that time denied any urinary symptoms; however, today, reporting urinary urgency; patient seen by me in the ED after she had signed papers saying that she wanted to leave against medical advise; patient was then advised by me to at least stay for IV fluid administration. Patient last took her antihypertensive medications last night, did not take anything this morning; reports feeling of weakness and subjective dizziness. PAST MEDICAL HISTORY: As above, presented in late 08/2016 with hypertensive emergency and PRES syndrome, with resulting left eye blindness, which persists; patient at that time had been found to have CHF with decreased ejection fraction; EF on subsequent stress test done several months later was normal, however, she reports recently being told by transplant center that her heart is weak and therefore her transplant status is on hold. SOCIAL HISTORY: Current smoker. FAMILY HISTORY: Mother with ESRD, on hemodialysis. REVIEW OF SYSTEMS: CONSTITUTIONAL: Weight loss, otherwise, reports good appetite. HEENT: Chronic left eye blindness. RESPIRATORY: Denies any difficulty breathing. CARDIOVASCULAR: No chest pain, has been having some leg swelling lately. GASTROINTESTINAL: No nausea or vomiting. GENITOURINARY: As per HPI. EXTREMITIES: Has mild leg edema. NEUROLOGIC: Was reporting decreased sensation in anterior legs. PSYCHIATRIC: History of anxiety. PHYSICAL EXAMINATION: VITAL SIGNS: In the ED, blood pressure 103/60, heart rate 69, respirations 18, temperature 97.8, O2 sat 98% on room air. GENERAL: No distress. Conversing coherently in full sentences. HEENT: Moist mucous membranes. Nonicteric. RESPIRATORY: Lungs clear to auscultation bilaterally. No rales, no rhonchi. No wheezes. CARDIOVASCULAR: Heart sounds S1, S2 normal. No murmurs, no gallops, no rubs. GASTROINTESTINAL: Abdomen nondistended. EXTREMITIES: Mild lower leg edema. SKIN: Warm. No cyanosis. PSYCHIATRIC: Normal affect. Normal mood. LABORATORY DATA: In ED, CBC: WBC 6.5, hemoglobin 9.6, hematocrit 27.3, platelets 144. Chemistry panel: Sodium 137, potassium 4.0, chloride 101, bicarb 25, BUN 55, creatinine 5.1, calcium 9.4. AST 22, ALT 29, albumin 4.1. Urine studies: UA, large leukocyte esterase, numerous wbc's, small bacteria. ASSESSMENT AND PLAN: 1. Acute kidney injury on chronic kidney disease: Patient's renal function had been stable over the past few months; unclear if current increase in serum creatinine from baseline of approximately 4.0 to 5.1 is due to progression of chronic kidney disease or volume depletion in the setting of what appears to be urinary tract infection while patient is on high dose of diuretics. At this point, we will give patient 500 mL of NS over the next 2 hours as patient has agreed to stay for intravenous fluids; patient still wants to leave against medical advice, so we have instructed her to hold her p.m. diuretics as well as hold tonight's dose of hydralazine and nifedipine. 2. Chronic kidney disease, IV/V: Patient has been referred to transplant center. Currently, the process is on hold. Patient does not have any urgent indication to initiate dialysis currently, relatively stable electrolyte status may likely actually be volume depleted; giving intravenous fluids as above. We will check chemistry panel next week until prior improvement; however, weight loss is concerning despite patient's insistence that it is due to her change in diet; decreased appetite can be a sign of progressive uremia. 3. Hypertensive chronic kidney disease. Patient actually has relative hypotension; her usual blood pressures are very difficult to control with office systolic blood pressure readings in 160s on a good day; the patient is on 8 antihypertensive medications including 2 diuretics; patient instructed to hold antihypertensive medications as above and to check her pressure at home tonight and tomorrow before restarting; she should get in touch with us if she has any questions. 4. Anemia. Hemoglobin had been above goal (10 to 11 g for advanced chronic kidney disease), new drop in hemoglobin may be another sign of progressive chronic kidney disease; iron studies already sent yesterday; we will follow up and start Aranesp if iron stores are replete. 5. Urinary tract infection. Patient received ceftriaxone 2 g in the ED. No renal dose adjustment needed. We will prescribe her Cipro 250 mg twice daily for next 3 days. Thank you for this consultation. We will be following up with this patient as an outpatient closely. Shane Rosen MD
[2017-07-30] MEDS ORDERED: Cholecalciferol 1,000 INTLU TAB PO SCH (10:00)
== END 2017-07-29 17:36 | disposition left against medical advice (07) ==
LOC: ED 07:15 → ERH 09:49 → UNDOADMOB 09:49 → ED 17:36
DX: M62.81 Muscle weakness (generalized) (principal); I12.9 Hypertensive chronic kidney disease with stage 1 through stage 4 chronic kidney disease, or unspecified chronic kidney disease; N18.4 Chronic kidney disease, stage 4 (severe); D57.1 Sickle-cell disease without crisis; Z87.891 Personal history of nicotine dependence
CPT/HCPCS: 70450; 71045; 80053; 81001; 82550; 83615; 83735; 84484; 84703; 85025; 85610; 85730; 87086; 87181; 93005; 93970; 96365; 99285; G0480; J0696; J7040

== ENCOUNTER 2017-09-30 10:10 | Day surgery (SDC) | payer BC ==
[2017-09-23 12:12] VITALS: BMI 23.1
[2017-09-30] MEDS ORDERED: Sodium Chloride 0.9% 1,000 ML IV SCH (11:45)
[2017-09-30] MEDS ORDERED: Propofol 10 mg/ml Inj (20 ML) ONE (11:45)
[2017-09-30 14:04] VITALS: BP 144/78; PULSE 69; RESP 14; TEMP 98.4; O2SAT 97
== END 2017-09-30 14:45 | disposition home or self-care (01) ==
LOC: ENDO 10:10
PROVIDERS: ATTEND Internal Medicine Gastroenterology
DX: D50.9 Iron deficiency anemia, unspecified (principal); K29.50 Unspecified chronic gastritis without bleeding; B96.81 Helicobacter pylori [H. pylori] as the cause of diseases classified elsewhere; K59.09 Other constipation; K29.80 Duodenitis without bleeding; K31.9 Disease of stomach and duodenum, unspecified; Z01.818 Encounter for other preprocedural examination; K64.8 Other hemorrhoids; K63.9 Disease of intestine, unspecified; I12.9 Hypertensive chronic kidney disease with stage 1 through stage 4 chronic kidney disease, or unspecified chronic kidney disease; N18.4 Chronic kidney disease, stage 4 (severe)
CPT/HCPCS: 43239; 45378; 88305; 88342; J2001; J2704; J7040 ×2

== ENCOUNTER 2017-12-19 20:53 | Inpatient (IN) | payer BC ==
[2017-12-19 20:54] VITALS: BMI 25.4
--- NOTE | 2017-12-19 21:47 | ED PDOC ---
Arrival/HPI - General Chief Complaint: Abnormal Labs Time Seen by Provider: 12/19/17 21:34 Historian: Patient - History of Present Illness Narrative History of Present Illness (Text): 12/19/17 21:45 Jessica Jarrett is a 52 year old female, whose past medical history includes ESRD , hypertension, hyperlipidemia, PRES syndrome, and anemia, who presents to the Emergency department for abnormal labwork. Patient had labwork performed earlier today by her opal miner and her BUN was noted to be elevated at 157. Patient was advised to come to the ER for further evaluation.Pt. with hx. of prior worsening renal insufficiecy secondary long standing hypertension being prepped for eventual diaylsis.Patient states she still urinates.Concern for possible anemia reflective of her increased BUN.She denies any dark or bloody stools.No bleeding hx.Patient denies any fever, chills, chest pain, shortness of breath, nausea, vomiting, neck pain, headache, dizziness, or any other complaints. Auction Clerk: Dr. Rosen Time/Duration: Other (today) Symptom Course: Unchanged Activities at Onset: Light Context: Home Past Medical History - Provider Review Nursing Documentation Reviewed: Yes - Infectious Disease Hx of Infectious Diseases: None - Reproductive Menopause: Yes - Cardiac Hx Pacemaker: No - Pulmonary Hx Respiratory Disorders: Yes (SMOKED CIGARETTES QUIT.) - Neurological Hx Paralysis: No - HEENT Hx HEENT Disorder: Yes Hx Blind: Yes Hx Cataracts: Yes Hx Glaucoma: Yes Other/Comment: LEFT EYE SURGERY - Renal Hx Renal Failure: Yes (STAGE 4 ARF) - Endocrine/Metabolic Hx Endocrine Disorders: Yes - Hematological/Oncological Hx Blood Transfusions: Yes Hx Blood Transfusion Reaction: No - Integumentary Hx Dermatological Disorder: No - Musculoskeletal/Rheumatological Hx Musculoskeletal Disorders: Yes - Gastrointestinal Hx Gastrointestinal Disorders: Yes (CONSTIPATION) - Genitourinary/Gynecological Hx Genitourinary Disorders: Yes (C/S X 4) - Psychiatric Hx Emotional Abuse: No Hx Physical Abuse: No Hx Substance Use: No - Surgical History Hx Section: Yes Hx Eye Surgery: Yes (right eye) - Anesthesia Hx Anesthesia: Yes Hx Anesthesia Reactions: No Hx Malignant Hyperthermia: No - Suicidal Assessment Feels Threatened In Home Enviroment: No Family/Social History - Physician Review Nursing Documentation Reviewed: Yes Family/Social History: Unknown Family HX Smoking Status: Former Smoker Hx Alcohol Use: Yes (QUIT 08/2016) Hx Substance Use: No Hx Substance Use Treatment: No Allergies/Home Meds Allergies/Adverse Reactions: Allergies STRINGBEANS Allergy (Mild, Uncoded 12/19/17 21:34) HIVES Home Medications: Home Meds Medication Instructions Recorded Confirmed Carvedilol [Coreg] 12.5 mg PO BID 12/01/16 12/19/17 Sodium Bicarbonate Tab [Sodium 650 mg PO BID 12/01/16 12/19/17 Bicarbonate Tab] Spironolactone [Aldactone] 25 mg PO BID 12/01/16 12/19/17 cloNIDine [Catapres] 0.3 mg PO TID 12/01/16 12/19/17 Nifedipine [Nifedipine ER] 30 mg PO BID 07/15/17 12/19/17 hydrALAZINE [Apresoline] 100 mg PO TID 07/15/17 12/19/17 Atorvastatin [Lipitor] 20 mg PO DAILY 07/22/17 12/19/17 Clopidogrel [Plavix] 75 mg PO DAILY 07/22/17 12/19/17 Ferrous Sulfate [Feosol] 325 mg PO DAILY 07/22/17 12/19/17 Minoxidil [Loniten] 10 mg PO BID 07/22/17 12/19/17 Torsemide [Demadex] 20 mg PO BID 07/22/17 12/19/17 Cholecalciferol (Vitamin D3) 50,000 units PO Q7D 09/23/17 12/19/17 [Vitamin D3] Furosemide [Lasix] 40 mg PO DAILY 09/30/17 12/19/17 Review of Systems - Physician Review All systems were reviewed & negative as marked: Yes - Review of Systems Constitutional: Normal. absent: Fevers Eyes: Normal ENT: Normal Respiratory: Normal. absent: SOB, Cough Cardiovascular: Normal. absent: Chest Pain Gastrointestinal: Normal. absent: Abdominal Pain, Diarrhea, Nausea, Vomiting Genitourinary Female: Normal. absent: Dysuria, Frequency, Hematuria, Urine Output Changes Musculoskeletal: Normal. absent: Back Pain, Neck Pain Skin: Normal. absent: Rash Neurological: Normal. absent: Headache, Dizziness Endocrine: Normal Hemo/Lymphatic: Other (+abnormal labs) Psychiatric: Normal Physical Exam Vital Signs Reviewed: Yes Vital Signs Temp Pulse Resp BP Pulse Ox 12/19/17 21:30 98.6 F 71 19 140/89 100 Temperature: Afebrile Blood Pressure: Normal Pulse: Regular Respiratory Rate: Normal Appearance: Positive for: Well-Appearing, Non-Toxic, Comfortable Pain Distress: None Mental Status: Positive for: Alert and Oriented X 3 - Systems Exam Head: Present: Atraumatic, Normocephalic Pupils: Present: PERRL Extroacular Muscles: Present: EOMI Conjunctiva: Present: Normal Mouth: Present: Moist Mucous Membranes Neck: Present: Normal Range of Motion Respiratory/Chest: Present: Clear to Auscultation, Good Air Exchange. No: Respiratory Distress, Accessory Muscle Use Cardiovascular: Present: Regular Rate and Rhythm, Normal S1, S2. No: Murmurs Abdomen: No: Tenderness, Distention, Peritoneal Signs Back: Present: Normal Inspection Upper Extremity: Present: Normal Inspection. No: Cyanosis, Edema Lower Extremity: Present: Normal Inspection. No: Edema Neurological: Present: GCS=15, CN II-XII Intact, Speech Normal Skin: Present: Warm, Dry, Normal Color. No: Rashes Psychiatric: Present: Alert, Oriented x 3, Normal Insight, Normal Concentration Medical Decision Making ED Course and Treatment: 12/19/17 21:45 Impression: 52 year old female presents for abnormal labs. Plan: -- EKG -- Chest X-ray -- Labs, blood type and screen -- Reassess and disposition Prior Visits: Notes and results from previous visits were reviewed. On 07/29/2017, pt was seen in the Emergency department for generalized weakness. Pt was admitted to the hospital for further evaluation. Progress Notes: Reviewed EKG, NSR at 71 bpm. PVCs. LVH. Non-specific ST/T wave changes inferolaterally 12/19/17 23:35 Chest X-ray reviewed, shows no acute processes. 12/20/17 00:[address] Laureano, who is aware and agrees with plan. Accepts pt in to her service. Requests Dr. Rosen and Dr. Ribeiro on consult. - Lab Interpretations Lab Results: 12/19/17 22:05 12/19/17 22:05 Lab Results 12/19/17 22:53: Blood Type A POSITIVE, Antibody Screen Negative, BBK History Checked Patient has bt 12/19/17 22:05: WBC 6.0, RBC 3.90, Hgb 11.8 L D, Hct 31.6 L, MCV 81.0 D, MCH 30.3, MCHC 37.3 H, RDW 13.0, Plt Count 235, MPV 12.5 H 12/19/17 22:05: Sodium 133, Potassium 3.4 L, Chloride 87 L, Carbon Dioxide 24, Anion Gap 26 H, BUN 162 H*, Creatinine 4.8 H, Est GFR ( Amer) 12, Est GFR (Non-Af Amer) 10, Random Glucose 128 H, Calcium 7.9 L, Total Bilirubin 0.6, AST 39 H D, ALT 15, Alkaline Phosphatase 55, Total Protein 8.5 H, Albumin 4.8, Globulin 3.7, Albumin/Globulin Ratio 1.3 12/19/17 22:05: PT 12.4, INR 1.09 H, APTT 31.5 I have reviewed the lab results: Yes - RAD Interpretation Radiology Orders: 12/19/17 21:54 CHEST PORTABLE [RAD] Stat Manager Travel: ED Physician - EKG Interpretation Interpreted by ED Physician: Yes Type: 12 lead EKG - Medication Orders Current Medication Orders: Sodium Chloride (Sodium Chloride 0.9%) 1,000 mls @ 100 mls/hr IV .Q10H ANNA Last Admin: 12/20/17 00:09 Dose: 100 mls/hr eMAR Start Stop Document 12/20/17 00:09 LA (Rec: 12/20/17 00:09 LA [id number]) Intravenous Solution Start Date 12/20/17 Start Time 00:09 - Scribe Statement The provider has reviewed the documentation as recorded by the Ranjith Rizvi Provider Scribe Attestation: All medical record entries made by the Scribjose were at my direction and personally dictated by me. I have reviewed the chart and agree that the record accurately reflects my personal performance of the history, physical exam, medical decision making, and the department course for this patient. I have also personally directed, reviewed, and agree with the discharge instructions and disposition. Disposition/Present on Arrival - Present on Arrival Any Indicators Present on Arrival: No History of DVT/PE: No History of Uncontrolled Diabetes: No Urinary Catheter: No History of Decub. Ulcer: No History Surgical Site Infection Following: None - Disposition Have Diagnosis and Disposition been Completed?: Yes Diagnosis: Renal failure, Dehydration Disposition: HOSPITALIZED Disposition Time: 00:17 Condition: STABLE Referrals: Shane Rosen MD [Primary Care Provider] - Follow up with primary Forms: [employer] (Macedonian)
[2017-12-19 22:29] LABS: HEMOGLOBIN 11.8 g/dL (12.0-16.0); MEAN CORPUSCULAR HEMOGLOBIN 30.3 pg (25.0-35.0); MEAN CORPUSCULAR HGB CONC 37.3 g/dl (31.0-37.0); MEAN PLATELET VOLUME 12.5 fl (7.0-11.0); RBC 3.9 10^6/uL (3.5-6.1)
[2017-12-19 22:36] LABS: INR 1.09 (0.93-1.08); PARTIAL THROMBOPLASTIN TIME 31.5 Seconds (25.1-36.5); PROTHROMBIN TIME 12.4 SECONDS (9.4-12.5)
[2017-12-19 22:48] LABS: ALB/GLOB RATIO 1.3 (1.1-1.8); ALBUMIN 4.8 g/dL (3.0-4.8); CALCIUM 7.9 mg/dL (8.4-10.5)
[2017-12-19] MEDS ORDERED: Sodium Chloride 0.9% 1,000 ML IV SCH (23:45)
--- NOTE | 2017-12-20 04:51 | CP.PCM.PN ---
Subjective - Date & Time of Evaluation Date of Evaluation: 12/20/17 Time of Evaluation: 15:05 - Subjective Subjective: Pt seen for c/o pain in the lateral aspect of her R leg after she bumped it against a chair in the bathroom. Pt is admitted for renal failure and dehydration. Objective - Vital Signs/Intake and Output Vital Signs (last 24 hours): Temp Pulse Resp BP Pulse Ox 98.6 F 68 18 145/80 100 12/20/17 01:45 12/20/17 01:45 12/20/17 01:45 12/20/17 01:45 12/20/17 01:45 - Medications Medications: Current Medications Carvedilol (Coreg) 12.5 mg PO BID [facility] Clonidine HCl (Catapres) 0.3 mg PO TID [facility] Clopidogrel Bisulfate (Plavix) 75 mg PO DAILY [facility] Ergocalciferol (Drisdol 50,000 Intl Units Cap) 1 cap PO Q7D [facility] Ferrous Sulfate (Feosol) 324 mg PO DAILY [facility] Hydralazine HCl (Apresoline) 100 mg PO TID [facility] Sodium Chloride (Sodium Chloride 0.9%) 1,000 mls @ 100 mls/hr IV .Q10H [facility] Last Admin: 12/20/17 00:09 Dose: 100 mls/hr Minoxidil (Minoxidil) 10 mg PO BID [facility] Nifedipine (Procardia Xl) 30 mg PO BID [facility] Sodium Bicarbonate (Sodium Bicarbonate Tab) 650 mg PO BID [facility] Spironolactone (Aldactone) 25 mg PO BID [facility] Torsemide (Demadex) 20 mg PO BID [facility] - Labs Labs: PT 12.4 SECONDS (9.4-12.5) 12/19/17 22:05 INR 1.09 (0.93-1.08) H 12/19/17 22:05 APTT 31.5 Seconds (25.1-36.5) 12/19/17 22:05 - Constitutional Appears: No Acute Distress - Head Exam Head Exam: ATRAUMATIC, NORMAL INSPECTION, NORMOCEPHALIC - Eye Exam Eye Exam: PERRL - ENT Exam ENT Exam: Mucous Membranes Moist - Neck Exam Neck Exam: Normal Inspection - Respiratory Exam Respiratory Exam: Clear to Ausculation Bilateral - Cardiovascular Exam Cardiovascular Exam: REGULAR RHYTHM - GI/Abdominal Exam GI & Abdominal Exam: Soft, Normal Bowel Sounds. absent: Tenderness - Extremities Exam Extremities Exam: Normal Inspection, Tenderness (noted on lateral aspect of the R galeano.No localised swelling or ecchymosis noted at the site). absent: Calf Tenderness Additional comments: Has an AV shunt in the R arm.Bruit +,thrill+. - Neurological Exam Neurological Exam: Alert, Awake, Oriented x3 - Psychiatric Exam Psychiatric exam: Normal Affect, Normal Mood - Skin Skin Exam: Dry, Warm Assessment and Plan - Assessment and Plan (Free Text) Assessment: Pain R lower leg Plan: Ice packs to R lateral lower leg stat for 15 mins,then q 4 h x 24 hrs Tylenol 650 mg po stat.
--- NOTE | 2017-12-20 08:19 | RAD ---
HISTORY: medical clearance COMPARISON: 07/29/2017 FINDINGS: LUNGS: No active pulmonary disease. PLEURA: No significant pleural effusion identified, no pneumothorax apparent. CARDIOVASCULAR: Cardiomegaly-similar. Tortuous and partly calcified thoracic aorta -similar. OSSEOUS STRUCTURES: Right acromioclavicular joint space asymmetrically slightly wider in appearance with bordering arthritic change here findings are similar. VISUALIZED UPPER ABDOMEN: Normal. OTHER FINDINGS: None. IMPRESSION: No active disease. No interval pathology noted.
[2017-12-20 08:34] LABS: ALB/GLOB RATIO 1.3 (1.1-1.8); ALBUMIN 4.7 g/dL (3.0-4.8); CALCIUM 8.2 mg/dL (8.4-10.5); URIC ACID 12.1 mg/dL (2.5-6.2)
[2017-12-20 08:55] LABS: URINE BILIRUBIN NEGATIVE (NEGATIVE); URINE BLOOD TRACE-INTACT (NEGATIVE); URINE GLUCOSE (UA) NEGATIVE (NEGATIVE); URINE LEUKOCYTE ESTERASE NEGATIVE Leu/uL (NEGATIVE); URINE PROTEIN NEGATIVE mg/dL (<30 mg/dL); URINE UROBILINOGEN 0.2 E.U./dL (<1 E.U./dL)
[2017-12-20 08:56] LABS: URINE APPEARANCE CLEAR (CLEAR); URINE COLOR YELLOW (YELLOW)
[2017-12-20 08:57] LABS: CREATININE,RANDOM URINE 35 mg/dL
[2017-12-20 09:23] LABS: URINE BACTERIA FEW (NEG); URINE WBC 0 - 2 /hpf (0-6)
[2017-12-20] MEDS ORDERED: Ergocalciferol 50,000 Intl Units Cap PO SCH (10:00)
[2017-12-20] MEDS ORDERED: Cholecalciferol 1,000 INTLU TAB PO SCH (10:00)
--- NOTE | 2017-12-20 10:16 | CP.PCM.CON ---
<Julianne Wright - Last Filed: 12/20/17 13:17> History of Present Illness - History of Present Illness History of Present Illness: PGY-3 Nephrology consult note for Dr. Rosen's service 52 yo female, with past medical history of CKD stage IV/V, hypertension, hyperlipidemia, PRES syndrome, and anemia, who presents to the Emergency department for abnormal labwork. Patient had labwork performed yesterday and was found to have elevated BUN at 157. Patient was advised to come to the ER for further evaluation. Patient states that she is nausea, denies vomiting, started yesterday. Patient state that she also started to have LLQ abd pain, non radiating. She densi any dysuria, hematuria. She also denies chest pain, sob , fever, chills, headache, dizziness, confusion, cough, diarrhea. Patient states that she has history of prior worsening renal insufficiecy secondary long standing hypertension. A few montghs ago she began the process of have a fustula for eventual diaylsis. Patient states she still urinates, denies any urinary symptoms. Patient states that she was diagnosed with h. pylori eariler this year. She also states that she has poorly controlled HTN and is on multiple medicatiosn. Concern for possible anemia reflective of her increased BUN. She denies any dark or bloody stools. No bleeding history, no recent illiness. Patient denies any fever, chills, chest pain, shortness of breath, nausea, vomiting, neck pain, headache, dizziness, or any other complaints. PMH: CKD stage IV/V, hypertension, hyperlipidemia, PRES syndrome, and anemia PSH: multiple c section social history: former smoker,quit about 3 yo, smoked 5-6 cig per day, former alochol use, quit 3 yo, denies illicit drug use family history: mother has diabetes, HTN, sister has CHF allergy: stringbeans Past Patient History - Infectious Disease Hx of Infectious Diseases: None - Past Medical History & Family History Past Medical History?: Yes - Past Social History Smoking Status: Former Smoker - CARDIAC Hx Pacemaker: No - PULMONARY Hx Respiratory Disorders: Yes (SMOKED CIGARETTES QUIT.) - NEUROLOGICAL Hx Neurological Disorder: No - HEENT Hx HEENT Problems: Yes Hx Blind: Yes Hx Cataracts: Yes Hx Glaucoma: Yes Other/Comment: LEFT EYE SURGERY - RENAL Hx Renal Failure: Yes (STAGE 4 ARF) - ENDOCRINE/METABOLIC Hx Endocrine Disorders: Yes - HEMATOLOGICAL/ONCOLOGICAL Hx Blood Disorders: No (SICKLE CELL TRAIT) - INTEGUMENTARY Hx Dermatological Problems: No - MUSCULOSKELETAL/RHEUMATOLOGICAL Hx Musculoskeletal Disorders: Yes Hx Falls: No - GASTROINTESTINAL Hx Gastrointestinal Disorders: Yes (CONSTIPATION) - GENITOURINARY/GYNECOLOGICAL Hx Genitourinary Disorders: Yes (C/S X 4) - PSYCHIATRIC Hx Emotional Abuse: No Hx Physical Abuse: No - SURGICAL HISTORY Hx Surgeries: Yes - ANESTHESIA Hx Anesthesia: Yes Hx Anesthesia Reactions: No Hx Malignant Hyperthermia: No Meds Allergies/Adverse Reactions: Allergies Allergy/AdvReac Type Severity Reaction Status Date / Time STRINGBEANS Allergy Mild HIVES Uncoded 12/19/17 21:34 - Medications Medications: Current Medications Carvedilol (Coreg) 12.5 mg PO BID ANNA Clonidine HCl (Catapres) 0.3 mg PO TID ANNA Clopidogrel Bisulfate (Plavix) 75 mg PO DAILY ANNA Ergocalciferol (Drisdol 50,000 Intl Units Cap) 1 cap PO Q7D ANNA Ferrous Sulfate (Feosol) 324 mg PO DAILY ANNA Hydralazine HCl (Apresoline) 100 mg PO TID ANNA Sodium Chloride (Sodium Chloride 0.9%) 1,000 mls @ 100 mls/hr IV .Q10H [facility] [place] Last Admin: 12/20/17 00:09 Dose: 100 mls/hr Minoxidil (Minoxidil) 10 mg PO BID ANNA Nifedipine (Procardia Xl) 30 mg PO BID ANNA Sodium Bicarbonate (Sodium Bicarbonate Tab) 650 mg PO BID ANNA Spironolactone (Aldactone) 25 mg PO BID ANNA Torsemide (Demadex) 20 mg PO BID [facility] Results - Vital Signs Recent Vital Signs: Last Vital Signs Temp 98 F 12/20/17 06:00 Pulse 78 12/20/17 06:00 Resp 20 12/20/17 06:00 BP 135/73 12/20/17 06:00 Pulse Ox 100 12/20/17 06:00 - Labs Result Diagrams: 12/19/17 22:05 12/20/17 08:00 Labs: Laboratory Results - last 24 hr 12/20/17 12/20/17 12/20/17 08:00 08:00 08:00 Sodium 135 Potassium 3.2 L Chloride 92 L Carbon Dioxide 22 Anion Gap 24 H BUN > 120 H* Creatinine 4.8 H Est GFR ( Amer) 12 Est GFR (Non-Af Amer) 10 Random Glucose 105 Uric Acid 12.1 H Calcium 8.2 L Phosphorus 7.1 H Magnesium 1.9 Iron 113 TIBC 335 % Saturation 34 Total Bilirubin 0.6 AST 44 H ALT 14 Alkaline Phosphatase 62 Total Protein 8.4 H Albumin 4.7 Globulin 3.6 Albumin/Globulin Ratio 1.3 Urine Color Yellow Urine Appearance Clear Urine pH 6.0 Ur Specific [place] <= 1.005 Urine Protein Negative Urine Glucose (UA) Negative Urine Ketones Negative Urine Blood Trace-intact H Urine Nitrate Negative Urine Bilirubin Negative Urine Urobilinogen 0.2 Ur Leukocyte Esterase Negative Urine RBC 1 - 3 Urine WBC 0 - 2 Ur Epithelial Cells 4 - 5 Urine Bacteria Few Ur Random Creatinine Ur Random Sodium Ur Random Urea Nitrogn 12/20/17 08:00 Sodium Potassium Chloride Carbon Dioxide Anion Gap BUN Creatinine Est GFR ( Amer) Est GFR (Non-Af Amer) Random Glucose Uric Acid Calcium Phosphorus Magnesium Iron TIBC % Saturation Total Bilirubin AST ALT Alkaline Phosphatase Total Protein Albumin Globulin Albumin/Globulin Ratio Urine Color Urine Appearance Urine pH Ur Specific [place] Urine Protein Urine Glucose (UA) Urine Ketones Urine Blood Urine Nitrate Urine Bilirubin Urine Urobilinogen Ur Leukocyte Esterase Urine RBC Urine WBC Ur Epithelial Cells Urine Bacteria Ur Random Creatinine 35 Ur Random Sodium 74 Ur Random Urea Nitrogn 512 Assessment & Plan - Assessment and Plan (Free Text) Assessment: 52 yo female, with past medical history of CKD stage IV/V, hypertension, hyperlipidemia, PRES syndrome, and anemia, who presents for elevated BUN of 162 , baseline 60-70. Plan: elevated BUN - BUN elevated to 162 on admission, baseline in 60-70, however creatinine continues to be at baseline - concern for possible GI bleed, possible dehydration - anemia work up - GI consulted, endoscopy today - patientw as started on IVF normal saline at 100cc/hr in ED, slight improvement of BUN from 162 to 147 this morning - will continue to monitor BUN and for complications - Fena 7.5%, however patient on diuretic, Feurea is 43.3% suggestive of intrisinic - PTH pending CKD stage IV/V - elevated BUN however creatinine at baseline - continue to monitoring urine output - patient is not on hemodialysis, continues to make urine - continue to monitor HTN - controlled - on multiple medications at home, continue to monitor - will hold lasix due to BUN hypokalemia - replaced, continue to monitor Case seen, examiend and reviewed with attending <Shane Rosen - Last Filed: 12/21/17 07:13> Meds - Medications Medications: Current Medications Carvedilol (Coreg) 12.5 mg PO BID [facility] [place] Last Admin: 12/20/17 18:38 Dose: 12.5 mg Clonidine HCl (Catapres) 0.3 mg PO TID [facility] Last Admin: 12/20/17 18:37 Dose: 0.3 mg Clopidogrel Bisulfate (Plavix) 75 mg PO DAILY [facility] Last Admin: 12/20/17 14:23 Dose: 75 mg Ergocalciferol (Drisdol 50,000 Intl Units Cap) 1 cap PO Q7D [facility] [place] Last Admin: 12/20/17 14:23 Dose: 1 cap Ferrous Sulfate (Feosol) 324 mg PO DAILY [facility] [place] Last Admin: 12/20/17 14:23 Dose: 324 mg Hydralazine HCl (Apresoline) 100 mg PO TID [facility] [place] Last Admin: 12/20/17 18:38 Dose: 100 mg Sodium Chloride (Sodium Chloride 0.9%) 1,000 mls @ 50 mls/hr IV .Q20H [facility] [place] Minoxidil (Minoxidil) 10 mg PO BID [facility] [place] Last Admin: 12/20/17 18:39 Dose: 10 mg Nifedipine (Procardia Xl) 30 mg PO BID [facility] [place] Last Admin: 12/20/17 18:38 Dose: 30 mg Sodium Bicarbonate (Sodium Bicarbonate Tab) 650 mg PO BID [facility] [place] Last Admin: 12/20/17 18:39 Dose: 650 mg Spironolactone (Aldactone) 25 mg PO BID [facility] [place] Torsemide (Demadex) 20 mg PO BID [facility] [place] Results - Vital Signs Recent Vital Signs: Last Vital Signs Temp 98.1 F 12/20/17 23:14 Pulse 78 12/20/17 23:14 Resp 20 12/20/17 23:14 BP 106/57 L 12/20/17 23:14 Pulse Ox 99 12/20/17 23:14 - Labs Result Diagrams: 12/19/17 22:05 12/20/17 08:00 Labs: Laboratory Results - last 24 hr 12/20/17 12/20/17 12/20/17 08:00 08:00 08:00 Sodium 135 Potassium 3.2 L Chloride 92 L Carbon Dioxide 22 Anion Gap 24 H BUN 147 H* Creatinine 4.8 H Est GFR ( Amer) 12 Est GFR (Non-Af Amer) 10 Random Glucose 105 Uric Acid 12.1 H Calcium 8.2 L Phosphorus 7.1 H Magnesium 1.9 Iron 113 TIBC 335 % Saturation 34 Ferritin 60.8 Total Bilirubin 0.6 AST 44 H ALT 14 Alkaline Phosphatase 62 Total Protein 8.4 H Albumin 4.7 Globulin 3.6 Albumin/Globulin Ratio 1.3 25-OH Vitamin D Total 41.6 Urine Color Yellow Urine Appearance Clear Urine pH 6.0 Ur Specific [place] <= 1.005 Urine Protein Negative Urine Glucose (UA) Negative Urine Ketones Negative Urine Blood Trace-intact H Urine Nitrate Negative Urine Bilirubin Negative Urine Urobilinogen 0.2 Ur Leukocyte Esterase Negative Urine RBC 1 - 3 Urine WBC 0 - 2 Ur Epithelial Cells 4 - 5 Urine Bacteria Few Ur Random Creatinine Ur Random Sodium Ur Random Urea Nitrogn Urine HCG, Qual 12/20/17 12/20/17 08:00 08:00 Sodium Potassium Chloride Carbon Dioxide Anion Gap BUN Creatinine Est GFR ( Amer) Est GFR (Non-Af Amer) Random Glucose Uric Acid Calcium Phosphorus Magnesium Iron TIBC % Saturation Ferritin Total Bilirubin AST ALT Alkaline Phosphatase Total Protein Albumin Globulin Albumin/Globulin Ratio 25-OH Vitamin D Total Urine Color Urine Appearance Urine pH Ur Specific [place] Urine Protein Urine Glucose (UA) Urine Ketones Urine Blood Urine Nitrate Urine Bilirubin Urine Urobilinogen Ur Leukocyte Esterase Urine RBC Urine WBC Ur Epithelial Cells Urine Bacteria Ur Random Creatinine 35 Ur Random Sodium 74 Ur Random Urea Nitrogn 512 Urine HCG, Qual Negative Attending/Attestation - Attestation I have personally seen and examined this patient.: Yes I have fully participated in the care of the patient.: Yes I have reviewed all pertinent clinical information: Yes Notes (Text): Patient seen and examined; I agree with the note as above with the following additions/edits: 52 yo F, being followed by our outpatient renal service, w/ pmh of resistant htn , PRES syndrome last year, CHF, and CKD V, sent by us to ED due to concern for markedly elevated BUN on outpatient labs from yesterday; Patient was last seen about 1 month ago at which time she was noted to have significantly increased lower extremity edema and 12 lb weight gain; BP was elevated but not more than usual; metolazone 2.5 mg every other day was added to her diuretic regimen (was already on 8 BP meds including 2 diuretics); Current increase in serum BUN from baseline of 70's -> 160s likely due in part to over-diuresis; however, without corresponding increase in serum creatinine, there is concern for upper GI bleed; however, hgb stable and no small bowel bleeding seen on push enteroscopy; will f/u with further GI recs; will continue IVF, decreasing rate of NS to 50 cc/hr; Hypertensive CKD with resistant htn, no definite secondary causes found; improvement with further diuresis indicative of volume excess component of htn; holding diuretics for now; continuing with rest of meds; CHF w/ mildly decreased systolic dyfunction seen previously on echo; stress test negative; cardiac cath was recommended by cardiology to be done after initiation of dialysis; will consult cardio to see if plavix necessary, especially with concern for possible GI bleed; Otherwise, patient has relatively stable volume and electrolyte status currently ; recent nausea noted but otherwise has not had uremic symptoms; R arm AVF placed ~2 months ago, will need surgical revision, can be done as outpatient; no need for initiation of dialysis at this time; Thank you for this referral, we will be following closely.
--- NOTE | 2017-12-20 10:17 | CARD ---
APPROVED REPORT EKG Measurement Heart [id number] <Conclusion> Sinus rhythm with frequent premature ventricular complexes Possible Left atrial enlargement Left ventricular hypertrophy ST & T wave abnormality, consider inferolateral ischemia Prolonged QT No change except PVCs present now
[2017-12-20] MEDS ORDERED: Propofol 10 mg/ml Inj (20 ML) ONE ×2 (11:07→11:40)
[2017-12-20] MEDS ORDERED: Lidocaine 2% Inj (20ml) ONE (11:07)
[2017-12-20] MEDS ORDERED: Sodium Chloride 0.9% 1,000 ML IV SCH ×2 (12:15→20:00)
[2017-12-20 13:11] LABS: FERRITIN 60.8 ng/mL
--- NOTE | 2017-12-20 16:10 | CP.PCM.CON ---
History of Present Illness - History of Present Illness History of Present Illness: GI Consult Note for Dr. Ribeiro Service Parth Seymour, PGY-3 This is a 52 yo F with PMH of CKD stage IV/V, hypertension, hyperlipidemia, PRES syndrome, and anemia who was sent to [facility] ED by her optical assistant due to outpatient labwork indicating BUN 152. ED labwork confirmed severely elevated BUN (baseline per prior charting is 60's-70s for this patient), so she was admitted. GI was consulted for possible GI bleed given elevated BUN. Patient denies any melena, hematochezia, hematemesis, hemoptysis, diarrhea, emesis. Does admit to some nausea, but is tolerating PO intake well, and also some LLQ abdominal pain, no noticeably changed (improved or worsened) with bowel movement. Is still making urine, denies dysuria, hematuria, frequency, foul- smelling or cloudy urine, CVA tenderness. Denies chest pain, shortness of breath, focal weakness, room-spinning, confusion, vision changes, seizure-like activity, loss of bowel/bladder control, loss of gait. AAOx4 on exam (self, location, year, and president). All other ROS in 12-system review negative. Of note, previously diagnosed with H pylori approx 1 yr ago as per GI attending (Dr. Ribeiro), but unable to undergo treatment for H pylori due to the high reactivity of most H pylori treatment meds with several of the meds in patient' s extensive home medication regimen. PMH: CKD stage IV/V, hypertension, hyperlipidemia, PRES syndrome, and anemia PSH: multiple c section Soc Hx: former smoker,quit about 3 yo, smoked 5-6 cig per day, former alochol use, quit 1 yo, denies illicit drug use Fam Hx: mother has diabetes, HTN, sister has CHF PMD: Dr. Laureano Review of Systems - Review of Systems All systems: reviewed and no additional remarkable complaints except (as per HPI ) Past Patient History - Infectious Disease Hx of Infectious Diseases: None - Past Medical History & Family History Past Medical History?: Yes - Past Social History Smoking Status: Former Smoker - CARDIAC Hx Pacemaker: No - PULMONARY Hx Respiratory Disorders: Yes (SMOKED CIGARETTES QUIT.) - NEUROLOGICAL Hx Neurological Disorder: No - HEENT Hx HEENT Problems: Yes Hx Blind: Yes Hx Cataracts: Yes Hx Glaucoma: Yes Other/Comment: LEFT EYE SURGERY - RENAL Hx Renal Failure: Yes (STAGE 4 ARF) - ENDOCRINE/METABOLIC Hx Endocrine Disorders: Yes - HEMATOLOGICAL/ONCOLOGICAL Hx Blood Disorders: No (SICKLE CELL TRAIT) - INTEGUMENTARY Hx Dermatological Problems: No - MUSCULOSKELETAL/RHEUMATOLOGICAL Hx Musculoskeletal Disorders: Yes Hx Falls: No - GASTROINTESTINAL Hx Gastrointestinal Disorders: Yes (CONSTIPATION) - GENITOURINARY/GYNECOLOGICAL Hx Genitourinary Disorders: Yes (C/S X 4) - PSYCHIATRIC Hx Emotional Abuse: No Hx Physical Abuse: No - SURGICAL HISTORY Hx Surgeries: Yes - ANESTHESIA Hx Anesthesia: Yes Hx Anesthesia Reactions: No Hx Malignant Hyperthermia: No Meds Allergies/Adverse Reactions: Allergies Allergy/AdvReac Type Severity Reaction Status Date / Time STRINGBEANS Allergy Mild HIVES Uncoded 12/19/17 21:34 - Medications Medications: Current Medications Carvedilol (Coreg) 12.5 mg PO BID [facility] Clonidine HCl (Catapres) 0.3 mg PO TID [facility] Last Admin: 12/20/17 15:10 Dose: Not Given Clopidogrel Bisulfate (Plavix) 75 mg PO DAILY [facility] Last Admin: 12/20/17 14:23 Dose: 75 mg Ergocalciferol (Drisdol 50,000 Intl Units Cap) 1 cap PO Q7D [facility] Last Admin: 12/20/17 14:23 Dose: 1 cap Ferrous Sulfate (Feosol) 324 mg PO DAILY [facility] Last Admin: 12/20/17 14:23 Dose: 324 mg Hydralazine HCl (Apresoline) 100 mg PO TID [facility] Last Admin: 12/20/17 15:11 Dose: 100 mg Sodium Chloride (Sodium Chloride 0.9%) 1,000 mls @ 100 mls/hr IV .Q10H [facility] Last Admin: 12/20/17 14:22 Dose: 100 mls/hr Potassium Chloride (Potassium Chloride 10 Meq/100 Ml) 10 meq in 100 mls @ 50 mls/hr IVPB Q2H [facility] Stop: 12/20/17 16:59 Last Admin: 12/20/17 14:22 Dose: 50 mls/hr Minoxidil (Minoxidil) 10 mg PO BID [facility] Last Admin: 12/20/17 11:00 Dose: Not Given Nifedipine (Procardia Xl) 30 mg PO BID [facility] Sodium Bicarbonate (Sodium Bicarbonate Tab) 650 mg PO BID [facility] Last Admin: 12/20/17 11:00 Dose: Not Given Spironolactone (Aldactone) 25 mg PO BID [facility] Torsemide (Demadex) 20 mg PO BID ANNA Physical Exam - Constitutional Appears: Non-toxic, No Acute Distress - Head Exam Head Exam: ATRAUMATIC, NORMAL INSPECTION - Eye Exam Eye Exam: EOMI, Normal appearance. absent: Conjunctival injection, Scleral icterus Pupil Exam: absent: Fixed, Irregular - ENT Exam ENT Exam: Mucous Membranes Moist - Neck Exam Neck exam: Positive for: Full Rom, Normal Inspection. Negative for: Lymphadenopathy - Respiratory Exam Respiratory Exam: Clear to Auscultation Bilateral, NORMAL BREATHING PATTERN. absent: Accessory Muscle Use, Chest Wall Tenderness, Decreased Breath Sounds, Prolonged Expiratory Phase, Rales, Rhonchi, Wheezes - Cardiovascular Exam Cardiovascular Exam: REGULAR RHYTHM, RRR, +S1, +S2. absent: Bradycardia, Tachycardia, Irregular Rhythm, JVD - GI/Abdominal Exam GI & Abdominal Exam: Normal Bowel Sounds, Soft, Tenderness (LLQ tenderness to palpation, but only mild tenderness, no radiation elsewhere, no worsening of LLQ pain with palpation epigastrically). absent: Diminished Bowel Sounds, Distended, Firm, Guarding, Hyperactive Bowel Sounds, Hypoactive Bowel Sounds, Rigid - Extremities Exam Extremities exam: Positive for: normal capillary refill, normal inspection, pedal pulses present. Negative for: calf tenderness, full ROM, pedal edema, tenderness - Back Exam Back exam: NORMAL INSPECTION. absent: CVA tenderness (L), CVA tenderness (R), rash noted - Neurological Exam Neurological exam: Alert, CN II-XII Intact, Normal Gait, Oriented x3 Additional comments: awake and alert, motor and sensory grossly intact and equal bilaterally, no asterixis appreciate, AAOx4 (self, location, year, president), mentation appropriate and logical (able to do serial subtractions) - Psychiatric Exam Psychiatric exam: Normal Affect, Normal Mood - Skin Skin Exam: Dry, Intact, Normal Color, Warm Results - Vital Signs Recent Vital Signs: Last Vital Signs Temp 98.9 F 12/20/17 14:00 Pulse 70 12/20/17 15:11 Resp 18 12/20/17 14:00 BP 129/74 12/20/17 15:11 Pulse Ox 100 12/20/17 14:00 - Labs Result Diagrams: 12/19/17 22:05 12/20/17 08:00 Labs: Laboratory Results - last 24 hr 12/20/17 12/20/17 12/20/17 08:00 08:00 08:00 Sodium 135 Potassium 3.2 L Chloride 92 L Carbon Dioxide 22 Anion Gap 24 H BUN 147 H* Creatinine 4.8 H Est GFR ( Amer) 12 Est GFR (Non-Af Amer) 10 Random Glucose 105 Uric Acid 12.1 H Calcium 8.2 L Phosphorus 7.1 H Magnesium 1.9 Iron 113 TIBC 335 % Saturation 34 Ferritin 60.8 Total Bilirubin 0.6 AST 44 H ALT 14 Alkaline Phosphatase 62 Total Protein 8.4 H Albumin 4.7 Globulin 3.6 Albumin/Globulin Ratio 1.3 25-OH Vitamin D Total 41.6 Urine Color Yellow Urine Appearance Clear Urine pH 6.0 Ur Specific [place] <= 1.005 Urine Protein Negative Urine Glucose (UA) Negative Urine Ketones Negative Urine Blood Trace-intact H Urine Nitrate Negative Urine Bilirubin Negative Urine Urobilinogen 0.2 Ur Leukocyte Esterase Negative Urine RBC 1 - 3 Urine WBC 0 - 2 Ur Epithelial Cells 4 - 5 Urine Bacteria Few Ur Random Creatinine Ur Random Sodium Ur Random Urea Nitrogn Urine HCG, Qual 12/20/17 12/20/17 08:00 08:00 Sodium Potassium Chloride Carbon Dioxide Anion Gap BUN Creatinine Est GFR ( Amer) Est GFR (Non-Af Amer) Random Glucose Uric Acid Calcium Phosphorus Magnesium Iron TIBC % Saturation Ferritin Total Bilirubin AST ALT Alkaline Phosphatase Total Protein Albumin Globulin Albumin/Globulin Ratio 25-OH Vitamin D Total Urine Color Urine Appearance Urine pH Ur Specific Supply Urine Protein Urine Glucose (UA) Urine Ketones Urine Blood Urine Nitrate Urine Bilirubin Urine Urobilinogen Ur Leukocyte Esterase Urine RBC Urine WBC Ur Epithelial Cells Urine Bacteria Ur Random Creatinine 35 Ur Random Sodium 74 Ur Random Urea Nitrogn 512 Urine HCG, Qual Negative Assessment & Plan - Assessment and Plan (Free Text) Assessment: This is a 52 yo F with PMH of CKD stage IV/V, hypertension, hyperlipidemia, PRES syndrome, and anemia who was sent to [facility] [place] ED by her optical assistant due to outpatient labwork indicating BUN 152. ED labwork confirmed severely elevated BUN (baseline per prior charting is 60's-70s for this patient), so she was admitted. GI was consulted for possible GI bleed given elevated BUN. Plan: HTN CKD IV/V, headed towards ESRD and HD Acutely elevated BUN (baseline 60's-70's, outpt and admission labs show 150's- 160's) HLD Anemia Concern for GI bleed given acutely elevated BUN, but Hgb at/slightly above baseline (11.8 on admit, baseline 9-11 as per prior charting) To undergo EGD today, if negative for acute bleeding lesion, will obtain CT abd/ pelvis with PO contrast only Nephro following, appreciate their insight INR mildly elevated at 1.09, otherwise wnl, not on anticoagulation Mild AST elevation at 44, unchanged from yesterday, otherwise LFTs wnl Pt seen, reviewed, and discussed with attending, Dr. Ribeiro
[2017-12-20] MEDS ORDERED: Barium Sulfate Susp 2.1% w/v, 2.0% w/w 450 mL Bottle PO ONE ×2 (16:18→16:19)
[2017-12-20] MEDS: NIFEdipine 30 mg ER Tab PO SCH (18:38)
[2017-12-21 06:54] LABS: BASO # 0.03 K/mm3 (0.0-2.0); BASO % 0.6 % (0.0-3.0); EOS # 0.1 (0.0-0.7); EOS % 2.9 % (1.5-5.0); GRAN # 2.88 (1.4-6.5); GRAN % 59.5 % (50.0-68.0); HEMOGLOBIN 10.4 g/dL (12.0-16.0); LYMPH # 1.4 (1.2-3.4); LYMPH % 28.3 % (22.0-35.0); MEAN CELL VOLUME 81.1 fl (80.0-105.0); MEAN CORPUSCULAR HEMOGLOBIN 29.8 pg (25.0-35.0); MEAN CORPUSCULAR HGB CONC 36.7 g/dl (31.0-37.0); MEAN PLATELET VOLUME 12.4 fl (7.0-11.0); MONO # 0.4 (0.1-0.6); MONO % 8.7 % (1.0-6.0); RBC 3.49 10^6/uL (3.5-6.1); WHITE BLOOD COUNT 4.8 10^3/ul (4.5-11.0)
--- NOTE | 2017-12-21 07:35 | CP.PCM.PN ---
Subjective - Date & Time of Evaluation Date of Evaluation: 12/21/17 Time of Evaluation: 09:20 - Subjective Subjective: GI Progress Note for Dr. Quintin Seymour, IM PGY-3 Patient seen and examined at bedside. No acute complaints. S/p Push enteroscopy with no source of bleed, CT abd/pelvis with PO contrast does not further elucidate a potential bleed source. Patient denies abdominal pain, bloody or melanotic stools, nausea, emesis, or fevers/chills. Objective - Vital Signs/Intake and Output Vital Signs (last 24 hours): Temp Pulse Resp BP Pulse Ox 98.1 F 78 20 106/57 L 99 12/20/17 23:14 12/20/17 23:14 12/20/17 23:14 12/20/17 23:14 12/20/17 23:14 - Medications Medications: Current Medications Carvedilol (Coreg) 12.5 mg PO BID [facility] Last Admin: 12/20/17 18:38 Dose: 12.5 mg Clonidine HCl (Catapres) 0.3 mg PO TID [facility] Last Admin: 12/20/17 18:37 Dose: 0.3 mg Clopidogrel Bisulfate (Plavix) 75 mg PO DAILY [facility] Last Admin: 12/20/17 14:23 Dose: 75 mg Ergocalciferol (Drisdol 50,000 Intl Units Cap) 1 cap PO Q7D [facility] Last Admin: 12/20/17 14:23 Dose: 1 cap Ferrous Sulfate (Feosol) 324 mg PO DAILY [facility] Last Admin: 12/20/17 14:23 Dose: 324 mg Hydralazine HCl (Apresoline) 100 mg PO TID [facility] Last Admin: 12/20/17 18:38 Dose: 100 mg Sodium Chloride (Sodium Chloride 0.9%) 1,000 mls @ 50 mls/hr IV .Q20H [facility] Minoxidil (Minoxidil) 10 mg PO BID [facility] Last Admin: 12/20/17 18:39 Dose: 10 mg Nifedipine (Procardia Xl) 30 mg PO BID [facility] Last Admin: 12/20/17 18:38 Dose: 30 mg Sodium Bicarbonate (Sodium Bicarbonate Tab) 650 mg PO BID [facility] Last Admin: 12/20/17 18:39 Dose: 650 mg Spironolactone (Aldactone) 25 mg PO BID [facility] Torsemide (Demadex) 20 mg PO BID [facility] - Labs Labs: 12/21/17 06:30 12/20/17 08:00 PT 12.4 SECONDS (9.4-12.5) 12/19/17 22:05 INR 1.09 (0.93-1.08) H 12/19/17 22:05 APTT 31.5 Seconds (25.1-36.5) 12/19/17 22:05 - Additional Findings Additional findings: - Constitutional Appears: Non-toxic, No Acute Distress - Head Exam Head Exam: ATRAUMATIC, NORMAL INSPECTION - Eye Exam Eye Exam: EOMI, Normal appearance. absent: Conjunctival injection, Scleral icterus Pupil Exam: absent: Fixed, Irregular - ENT Exam ENT Exam: Mucous Membranes Moist - Neck Exam Neck exam: Positive for: Full Rom, Normal Inspection. Negative for: Lymphadenopathy - Respiratory Exam Respiratory Exam: Clear to Auscultation Bilateral, NORMAL BREATHING PATTERN. absent: Accessory Muscle Use, Chest Wall Tenderness, Decreased Breath Sounds, Prolonged Expiratory Phase, Rales, Rhonchi, Wheezes - Cardiovascular Exam Cardiovascular Exam: REGULAR RHYTHM, RRR, +S1, +S2. absent: Bradycardia, Tachycardia, Irregular Rhythm, JVD - GI/Abdominal Exam GI & Abdominal Exam: Normal Bowel Sounds, Soft, Tenderness (LLQ tenderness to palpation, less compared to prior exam). absent: Diminished Bowel Sounds, Distended, Firm, Guarding, Hyperactive Bowel Sounds, Hypoactive Bowel Sounds, Rigid - Extremities Exam Extremities exam: Positive for: normal capillary refill, normal inspection, pedal pulses present. Negative for: calf tenderness, full ROM, pedal edema, tenderness - Back Exam Back exam: NORMAL INSPECTION. 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 ED labwork confirmed severely elevated BUN (baseline per prior charting is 60's-70s for this patient), so she was admitted. GI was consulted for possible GI bleed given elevated BUN. Plan: HTN CKD IV/V, headed towards ESRD and HD Acutely elevated BUN (baseline 60's-70's, outpt and admission labs show 150's- 160's) HLD Anemia -Concern for GI bleed given acutely elevated BUN, but Hgb at/slightly above baseline (11.8 on admit, 10.4 today, baseline 9-11 as per prior charting) -EGD notable for gastritis, but no active bleeds or sites of old bleeding observed during scoping; CT abd/pelvis also only indicative of possible gastritis -Stool occult, Retic count, and Celiac panel ordered, f/u -Pt denies any periods for last year, %Sat iron is 34 on iron supplementation, less likely iron deficiency anemia, may be 2/2 renal disease -Nephro following, appreciate their insight -INR mildly elevated at 1.09, otherwise wnl, not on anticoagulation -LFTs wnl, continue to monitor Pt seen, reviewed, and discussed with attending, Dr. Ribeiro
[2017-12-21 07:55] LABS: ALB/GLOB RATIO 1.3 (1.1-1.8); ALBUMIN 4.2 g/dL (3.0-4.8)
[2017-12-21] MEDS: NIFEdipine 30 mg ER Tab PO SCH ×2 (10:25→20:17)
--- NOTE | 2017-12-21 11:27 | CP.PCM.PN ---
<Ronnell Dickerson - Last Filed: 12/21/17 11:23> Subjective - Date & Time of Evaluation Date of Evaluation: 12/21/17 Time of Evaluation: 11:23 - Subjective Subjective: Medicine progress note for Dr. Ladd (covering for Dr. Laureano) - Tere Dickerson PGY3 Patient seen and examined at bedside this morning. No acute overnight events or new complaints reported. She denies chest pain, palpitations, SOB. Objective - Vital Signs/Intake and Output Vital Signs (last 24 hours): Temp Pulse Resp BP Pulse Ox 98.3 F 68 20 116/68 100 12/21/17 06:00 12/21/17 06:00 12/21/17 06:00 12/21/17 06:00 12/21/17 06:00 - Medications Medications: Current Medications Aspirin (Ecotrin) 81 mg PO DAILY [facility] Carvedilol (Coreg) 12.5 mg PO BID [facility] Last Admin: 12/21/17 10:25 Dose: 12.5 mg Clonidine HCl (Catapres) 0.3 mg PO TID [facility] Last Admin: 12/21/17 10:25 Dose: 0.3 mg Ergocalciferol (Drisdol 50,000 Intl Units Cap) 1 cap PO Q7D [facility] Last Admin: 12/20/17 14:23 Dose: 1 cap Ferrous Sulfate (Feosol) 324 mg PO DAILY [facility] Last Admin: 12/21/17 10:25 Dose: 324 mg Hydralazine HCl (Apresoline) 100 mg PO TID [facility] Last Admin: 12/21/17 10:24 Dose: 100 mg Sodium Chloride (Sodium Chloride 0.9%) 1,000 mls @ 50 mls/hr IV .Q20H [facility] Minoxidil (Minoxidil) 10 mg PO BID [facility] Last Admin: 12/21/17 10:24 Dose: 10 mg Nifedipine (Procardia Xl) 30 mg PO BID [facility] Last Admin: 12/21/17 10:25 Dose: 30 mg Sodium Bicarbonate (Sodium Bicarbonate Tab) 650 mg PO BID [facility] Last Admin: 12/21/17 10:24 Dose: 650 mg Spironolactone (Aldactone) 25 mg PO BID [facility] Torsemide (Demadex) 20 mg PO BID [facility] - Labs Labs: 12/21/17 06:30 12/21/17 06:30 PT 12.4 SECONDS (9.4-12.5) 12/19/17 22:05 INR 1.09 (0.93-1.08) H 12/19/17 22:05 APTT 31.5 Seconds (25.1-36.5) 12/19/17 22:05 - Constitutional Appears: No Acute Distress - Head Exam Head Exam: ATRAUMATIC, NORMAL INSPECTION, NORMOCEPHALIC - Eye Exam Eye Exam: EOMI Pupil Exam: PERRL - ENT Exam ENT Exam: Mucous Membranes Moist - Neck Exam Neck Exam: Normal Inspection - Respiratory Exam Respiratory Exam: Clear to Ausculation Bilateral. absent: Rales, Rhonchi, Wheezes - GI/Abdominal Exam GI & Abdominal Exam: Soft, Tenderness (LLQ). absent: Distended, Firm, Guarding , Rigid, Rebound - Extremities Exam Extremities Exam: Normal Inspection. 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 1. Elevated BUN 2. CKD stage V 3. Hypertension 4. Hyperlipidemia 5. Anemia -CT abdomen/pelvis with oral contrast pending for evaluation of GI tract -GI consulted for evaluation of possible GI bleed in light of elevated BUN and anemia -Nephrology following, Dr. Rosen and pending 24hr creatinine, creatinine clearance and BUN -She is presently on coreg, clonidine, hydralazine, minoxidil and nifedipine -Her torsemide and aldactone have been placed on hold per nephrology recommendations -Push enteroscopy performed by GI and was reviewed; gastritis with no evidence of active/old bleeding up to the jejunum -Cardiology has been consulted and patient is pending MUGA scan Patient seen and case discussed/reviewed with attending, Dr. Ladd <Ian Ladd - Last Filed: 12/21/17 12:23> Objective - Vital Signs/Intake and Output Vital Signs (last 24 hours): Temp Pulse Resp BP Pulse Ox 98.3 F 68 20 116/68 100 12/21/17 06:00 12/21/17 06:00 12/21/17 06:00 12/21/17 06:00 12/21/17 06:00 - Medications Medications: Current Medications Aspirin (Ecotrin) 81 mg PO DAILY [facility] Carvedilol (Coreg) 12.5 mg PO BID [facility] Last Admin: 12/21/17 10:25 Dose: 12.5 mg Clonidine HCl (Catapres) 0.3 mg PO TID [facility] Last Admin: 12/21/17 10:25 Dose: 0.3 mg Ergocalciferol (Drisdol 50,000 Intl Units Cap) 1 cap PO Q7D [facility] Last Admin: 12/20/17 14:23 Dose: 1 cap Ferrous Sulfate (Feosol) 324 mg PO DAILY [facility] Last Admin: 12/21/17 10:25 Dose: 324 mg Hydralazine HCl (Apresoline) 100 mg PO TID [facility] Last Admin: 12/21/17 10:24 Dose: 100 mg Sodium Chloride (Sodium Chloride 0.9%) 1,000 mls @ 50 mls/hr IV .Q20H [facility] Minoxidil (Minoxidil) 10 mg PO BID [facility] Last Admin: 12/21/17 10:24 Dose: 10 mg Nifedipine (Procardia Xl) 30 mg PO BID [facility] Last Admin: 12/21/17 10:25 Dose: 30 mg Sodium Bicarbonate (Sodium Bicarbonate Tab) 650 mg PO BID [facility] Last Admin: 12/21/17 10:24 Dose: 650 mg Spironolactone (Aldactone) 25 mg PO BID [facility] Torsemide (Demadex) 20 mg PO BID [facility] - Labs Labs: 12/21/17 06:30 12/21/17 06:30 PT 12.4 SECONDS (9.4-12.5) 12/19/17 22:05 INR 1.09 (0.93-1.08) H 12/19/17 22:05 APTT 31.5 Seconds (25.1-36.5) 12/19/17 22:05 Assessment and Plan - Assessment and Plan (Free Text) Plan: Pt seen and examined by me. The labs and medications have been reviewed. I reviewed the note of the medical officer and I agree with it. Spoke to Dr Dempsey about case. Pt with refractatory HTN. She has an elevated BUN. Pt is close to dialysis. No uremic symptoms. Spoke to GI. No further intervention by them.
--- NOTE | 2017-12-21 11:59 | CT ---
PROCEDURE: CT Abdomen and Pelvis with oral contrast only. HISTORY: Renal failure, dehydration. Assess GI tract COMPARISON: 12/01/2016 CT abdomen and pelvis. 09/17/2016 abdominal ultrasound TECHNIQUE: Oral contrast only. Radiation dose: Total exam DLP = mGy-cm. This CT exam was performed using one or more of the following dose reduction techniques: Automated exposure control, adjustment of the mA and/or kV according to patient size, and/or use of iterative reconstruction technique. FINDINGS: LOWER THORAX: Unremarkable. LIVER: Unremarkable. No gross lesion or ductal dilatation. GALLBLADDER AND BILE DUCTS: Unremarkable. PANCREAS: Unremarkable. No gross lesion or ductal dilatation. SPLEEN: Unremarkable. ADRENALS: Unremarkable. No mass. KIDNEYS AND URETERS: Unremarkable. No hydronephrosis. No solid mass. VASCULATURE: Unremarkable. No aortic aneurysm. BOWEL: Distended stomach. Proximal gastric wall thickening, a finding identified on prior studies identified in retrospect. No focal gastric wall abnormalities. If gastric pathology is suspected endoscopic assessment would be a recommended procedure for follow-up. Mild edematous change in non dilated loops of proximal and mid small bowel consistent with enteritis. APPENDIX: Normal appendix. PERITONEUM: Unremarkable. No free fluid. No free air. LYMPH NODES: Unremarkable. No enlarged lymph nodes. BLADDER: Unremarkable. REPRODUCTIVE: Unremarkable. BONES: No acute fracture. OTHER FINDINGS: None. IMPRESSION: Gastric wall thickening, of chronic identified on prior studies. Findings consist with mild enteritis without small bowel obstruction.
--- NOTE | 2017-12-21 21:50 | CON ---
DATE: 12/21/2017 LOCATION: The patient in room 571, bed 1. REASON FOR CONSULTATION: Renal failure, hypertension, and cardiomyopathy. HISTORY OF PRESENT ILLNESS: A 52-year-old female, known case of hypertension, cardiomyopathy, abnormal kidney function which shows further deterioration. The patient has nausea, brought to the emergency room, found to have BUN 157. The patient denies any cardiac symptoms, chest pain, shortness of breath, or palpitation. The patient also has history of anemia. The patient denies any black stool or any diarrhea. The patient had a stress test on 02/03/2017, which was negative for ischemia and ejection fraction was 62%. The patient had an echo on 09/13/2016, which showed LVH with ejection fraction of 35% to 40%, RVSP 33. Mild mitral regurgitation, mild tricuspid regurgitation, trace pulmonary regurgitation, and trace aortic regurgitation. PAST MEDICAL HISTORY: The patient's past history positive for hypertension, renal dysfunction. Previously, the patient had 4 C-sections and surgery on the left eye. She also has a history of detached retina and cataract on the left eye, and glaucoma of left eye. The patient has also started formation of fistula on the right arm in the past. The patient has history of hyperlipidemia. PERSONAL HISTORY: Denies smoking. Denies drinking. The patient used to smoke and drink 1 year ago, has stopped since then. ALLERGIES: DENIES ANY ALLERGIES. FAMILY HISTORY: Mother and grandmother had high blood pressure. One sister has cardiac problems. REVIEW OF SYSTEMS: All the systems reviewed, positives mentioned in the history, others were negative. HOME MEDICATIONS: The patient was on Plavix 75 mg daily, Coreg 12.5 b.i.d., Lipitor 20 daily, ferrous sulfate 324 daily, Aldactone 25 b.i.d., sodium bicarbonate tablet 650 b.i.d., nifedipine ER 30 mg p.o. b.i.d., minoxidil 10 mg b.i.d., furosemide 40 daily, hydralazine 100 mg t.i.d., clonidine 0.3 mg p.o. t.i.d., Demadex 20 mg b.i.d. PHYSICAL EXAMINATION: VITAL SIGNS: Blood pressure 116/68, respirations 20, pulse 68, and temperature 98.3. HEENT: Head is normocephalic. Eyes: Pupils normal. Conjunctivae slightly pale. NECK: JVP low. Carotids equal. THORAX: AP diameter normal. LUNGS: Clear. CARDIOVASCULAR: S1 and S2. Systolic murmur grade II/. No rub. ABDOMEN: Soft. No tenderness. No organomegaly. EXTREMITIES: No clubbing. No cyanosis. LABORATORY DATA: WBC 4.8, hemoglobin 10.4, hematocrit 28.3, and platelets 196. Sodium 135, potassium 3.5. BUN 140, creatinine 4.9. Calcium 8, phosphorus 6.9, magnesium 1.9. AST and ALT normal. Total protein and albumin normal. EKG showed sinus rhythm, LVH, ST-T changes, PVC. Chest x-ray: Lungs, no active pulmonary disease. Cardiovascular, cardiomegaly, tortuous, partly calcified thoracic aorta. DIAGNOSES: Renal failure, anemia, hypertension, history of left ventricular dysfunction, fistula formation on the right arm, glaucoma of left eye, hypokalemia. PLAN: The patient is on spironolactone 25 b.i.d., hydralazine 100 mg t.i.d., clonidine 0.3 p.o. t.i.d., Coreg 12.5 b.i.d., torsemide 20 mg p.o. b.i.d., ferrous sulfate 324 mg p.o. daily. The patient is on Plavix. So, I was consulted, question has been asked whether the patient needs Plavix, so we can stop the Plavix and replace it with baby aspirin 81 mg daily. The patient is also getting nifedipine ER 30 mg p.o. b.i.d., sodium bicarb 650 p.o. b.i.d., sodium chloride, normal saline fluid 50 mL an hour. We will also repeat the MUGA scan to see how the LV function is because stress test on 02/03/2017, was negative for any ischemia and ejection fraction was 62% with echo showed ejection fraction of 35% to 40%. Clinically, the patient's cardiac status is stable. We will do the MUGA scan and we will follow with you. Kristine Cleary MD [facility] # [id number]
[2017-12-21] MEDS ORDERED: Sodium Chloride 0.9% 1,000 ML IV SCH (23:50)
--- NOTE | 2017-12-21 23:50 | CP.PCM.PN ---
Subjective - Date & Time of Evaluation Date of Evaluation: 12/21/17 Time of Evaluation: 11:00 - Subjective Subjective: 52 yo F w/ pmh of resistant/malignant htn s/p PRES syndrome, CHF, and CKD V, admitted for marked elevation in BUN; Patient tolerated solid diet yesterday evening; no nausea/vomiting; urinating well on IVF; Objective - Vital Signs/Intake and Output Vital Signs (last 24 hours): Temp Pulse Resp BP Pulse Ox 98.7 F 72 21 104/59 L 100 12/21/17 22:00 12/21/17 22:00 12/21/17 22:00 12/21/17 22:00 12/21/17 22:00 - Medications Medications: Current Medications Aspirin (Ecotrin) 81 mg PO DAILY [facility] Carvedilol (Coreg) 12.5 mg PO BID [facility] Last Admin: 12/21/17 10:25 Dose: 12.5 mg Clonidine HCl (Catapres) 0.3 mg PO TID [facility] Last Admin: 12/21/17 20:16 Dose: Not Given Ergocalciferol (Drisdol 50,000 Intl Units Cap) 1 cap PO Q7D [facility] Last Admin: 12/20/17 14:23 Dose: 1 cap Ferrous Sulfate (Feosol) 324 mg PO DAILY [facility] Last Admin: 12/21/17 10:25 Dose: 324 mg Hydralazine HCl (Apresoline) 100 mg PO TID [facility] Last Admin: 12/21/17 18:00 Dose: Not Given Sodium Chloride (Sodium Chloride 0.9%) 1,000 mls @ 50 mls/hr IV .Q20H [facility] Minoxidil (Minoxidil) 10 mg PO BID [facility] Last Admin: 12/21/17 18:00 Dose: Not Given Nifedipine (Procardia Xl) 30 mg PO BID [facility] Last Admin: 12/21/17 20:17 Dose: Not Given Sodium Bicarbonate (Sodium Bicarbonate Tab) 650 mg PO BID [facility] Last Admin: 12/21/17 20:18 Dose: Not Given Spironolactone (Aldactone) 25 mg PO BID [facility] Torsemide (Demadex) 20 mg PO BID [facility] - Labs Labs: PT 12.4 SECONDS (9.4-12.5) 12/19/17 22:05 INR 1.09 (0.93-1.08) H 12/19/17 22:05 APTT 31.5 Seconds (25.1-36.5) 12/19/17 22:05 - Constitutional Appears: Non-toxic, No Acute Distress - Eye Exam Eye Exam: absent: Scleral icterus - ENT Exam ENT Exam: Mucous Membranes Moist - Respiratory Exam Respiratory Exam: Clear to Ausculation Bilateral. absent: Respiratory Distress - Cardiovascular Exam Cardiovascular Exam: Irregular Rhythm, +S1, +S2. absent: Gallop - GI/Abdominal Exam GI & Abdominal Exam: Soft. absent: Distended, Tenderness - Extremities Exam Additional comments: no leg edema; - Neurological Exam Neurological Exam: Alert, Awake - Psychiatric Exam Psychiatric exam: Normal Mood. absent: Agitated - Skin Skin Exam: Warm. absent: Cyanosis Assessment and Plan (1) Azotemia Assessment & Plan: Marked elevation of BUN from baseline of 70's -> 160's without concomitant increase in serum creatinine; etiology unclear with only mild improvement on IVF ; upper GI bleed essentially ruled out by endoscopy and relatively stably hgb; stable serum creatinine with relatively stable weight goes against deteriorating renal function; still suspecting pre-renal etiology, not simply due to volume depletion but rather decreased renal perfusion in the setting of unusually low BP for patient; -increasing IVF back to NS at 100 cc/hr; -awaiting further cardiac workup (MUGA scan); -see below regarding BP meds; Status: Acute (2) CKD (chronic kidney disease) stage 5, GFR less than 15 ml/min Assessment & Plan: Being prepared for HD in the near future; R arm AVF w/ good bruit, to see vascular surgery next week to setup transposition procedure; otherwise, no overt uremic signs/symptoms and stable electrolyte/volume status; no indication to initiate HD currently; -avoid nephrotoxic agents (NSAIDS, phosphate enema, etc); Status: Chronic (3) Resistant hypertension Assessment & Plan: Patient routinely with SBP in 140's-160's on office visits while on 8 anti-htn agents; current low/normal BP not explained simply by excessive diuretics; -holding diuretics; -decreasing clonidine to 0.2 mg tid (decreasing slowly to avoid rebound htn); -holding nifedipine XL; -holding minoxidil; Status: Chronic (4) Chronic kidney disease-mineral and bone disorder Assessment & Plan: Awaiting repeat PTH; new hyperphosphatemia noted; starting phoslo 2 tabs w/ meals; Status: Chronic (5) Anemia of renal disease Assessment & Plan: Hgb relatively stable, at goal for CKD (10-11 g); on PO ferrous sulfate, continue; no need for EPO; Status: Acute (6) CHF (congestive heart failure) Assessment & Plan: Currently asymptomatic; discrepancy between echo EF from last year (done in the setting of hypertensive emergency) and more recent stress test, awaiting MUGA scan; holding diuretics for now; Status: Chronic
[2017-12-22 06:39] LABS: BASO # 0.02 K/mm3 (0.0-2.0); BASO % 0.3 % (0.0-3.0); EOS # 0.2 (0.0-0.7); EOS % 3.3 % (1.5-5.0); GRAN # 4.35 (1.4-6.5); GRAN % 65.2 % (50.0-68.0); HEMOGLOBIN 9.5 g/dL (12.0-16.0); LYMPH # 1.5 (1.2-3.4); LYMPH % 23.1 % (22.0-35.0); MEAN CELL VOLUME 81.4 fl (80.0-105.0); MEAN CORPUSCULAR HEMOGLOBIN 29.5 pg (25.0-35.0); MEAN CORPUSCULAR HGB CONC 36.3 g/dl (31.0-37.0); MEAN PLATELET VOLUME 12.8 fl (7.0-11.0); MONO # 0.5 (0.1-0.6); MONO % 8.1 % (1.0-6.0); RBC 3.22 10^6/uL (3.5-6.1); RED CELL DISTRIBUTION WIDTH 12.8 % (11.5-14.5)
[2017-12-22 06:54] LABS: CALCIUM 7.8 mg/dL (8.4-10.5)
[2017-12-22 07:00] LABS: WHITE BLOOD COUNT 6.7 10^3/ul (4.5-11.0)
[2017-12-22 07:21] LABS: ALBUMIN 4.1 g/dL (3.0-4.8); URIC ACID 11.4 mg/dL (2.5-6.2)
[2017-12-22 08:45] LABS: ALB/GLOB RATIO 1.4 (1.1-1.8)
[2017-12-22 09:24] LABS: TROPONIN I 0.05 ng/mL
--- NOTE | 2017-12-22 11:50 | CP.PCM.PN ---
<Renan Prado - Last Filed: 12/22/17 11:40> Subjective - Date & Time of Evaluation Date of Evaluation: 12/22/17 Time of Evaluation: 10:20 - Subjective Subjective: PGY-2 nephrology progress note for Dr Rosen. No acute events noted overnight. Patient seen prior to leaving for MUGA scan. Stated she felt well - did not offer any complaints. 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 Urinating well. Denied n/v /d/c/, fevers, cp, sob. Objective - Vital Signs/Intake and Output Vital Signs (last 24 hours): Temp Pulse Resp BP Pulse Ox 98.3 F 77 20 124/67 97 12/22/17 06:00 12/22/17 06:00 12/22/17 06:00 12/22/17 06:00 12/22/17 06:00 Intake and Output: 12/22/17 12/22/17 06:59 18:59 Intake Total 600 Balance 600 - Medications Medications: Current Medications Aspirin (Ecotrin) 81 mg PO DAILY [facility] Last Admin: 12/22/17 10:20 Dose: 81 mg Calcium Acetate (Phoslo) 1,334 mg PO WM [facility] Last Admin: 12/22/17 10:21 Dose: 1,334 mg Carvedilol (Coreg) 12.5 mg PO BID [facility] Last Admin: 12/22/17 10:22 Dose: 12.5 mg Clonidine HCl (Catapres) 0.2 mg PO TID [facility] Last Admin: 12/22/17 10:21 Dose: 0.2 mg Ergocalciferol (Drisdol 50,000 Intl Units Cap) 1 cap PO Q7D [facility] Last Admin: 12/20/17 14:23 Dose: 1 cap Ferrous Sulfate (Feosol) 324 mg PO DAILY [facility] Last Admin: 12/22/17 10:19 Dose: 324 mg Hydralazine HCl (Apresoline) 100 mg PO TID [facility] Last Admin: 12/22/17 10:19 Dose: 100 mg Sodium Chloride (Sodium Chloride 0.9%) 1,000 mls @ 100 mls/hr IV .Q10H [facility] Last Admin: 07/05/18 10:26 Dose: 100 mls/hr Minoxidil (Minoxidil) 10 mg PO BID [facility] Last Admin: 12/21/17 18:00 Dose: Not Given Nifedipine (Procardia Xl) 30 mg PO BID [facility] Last Admin: 12/21/17 20:17 Dose: Not Given Sodium Bicarbonate (Sodium Bicarbonate Tab) 650 mg PO BID [facility] Last Admin: 12/22/17 10:25 Dose: 650 mg Spironolactone (Aldactone) 25 mg PO BID [facility] Torsemide (Demadex) 20 mg PO BID [facility] - Labs Labs: 12/22/17 06:10 12/22/17 06:10 PT 12.4 SECONDS (9.4-12.5) 12/19/17 22:05 INR 1.09 (0.93-1.08) H 12/19/17 22:05 APTT 31.5 Seconds (25.1-36.5) 12/19/17 22:05 - Additional Findings Additional findings: - Constitutional Appears: Non-toxic, No Acute Distress - Eye Exam Eye Exam: absent: Scleral icterus - ENT Exam ENT Exam: Mucous Membranes Moist - Respiratory Exam Respiratory Exam: Clear to Ausculation Bilateral. absent: Respiratory Distress - Cardiovascular Exam Cardiovascular Exam: Irregular Rhythm, +S1, +S2. absent: Gallop - GI/Abdominal Exam GI & Abdominal Exam: Soft. absent: Distended, Tenderness - Extremities Exam Additional comments: no leg edema; - Neurological Exam Neurological Exam: Alert, Awake - Psychiatric Exam Psychiatric exam: Normal Mood. absent: Agitated - Skin Skin Exam: Warm. absent: Cyanosis Assessment and Plan - Assessment and Plan (Free Text) Assessment: (1) Azotemia Assessment & Plan: Marked elevation of BUN from baseline of 70's -> 160's without concomitant increase in serum creatinine; etiology unclear with only mild improvement on IVF ; upper GI bleed essentially ruled out by endoscopy and relatively stably hgb; stable serum creatinine with relatively stable weight goes against deteriorating renal function; still suspecting pre-renal etiology, not simply due to volume depletion but rather decreased renal perfusion in the setting of unusually low BP for patient; -increasing IVF back to NS at 100 cc/hr; -awaiting further cardiac workup (MUGA scan); -standing weight daily -follow-up 24 hour urine creatinine and bun to better assess renal function -see below regarding BP meds; Status: Acute (2) CKD (chronic kidney disease) stage 5, GFR less than 15 ml/min Assessment & Plan: Being prepared for HD in the near future; R arm AVF w/ good bruit, to see vascular surgery next week to setup transposition procedure; otherwise, no overt uremic signs/symptoms and stable electrolyte/volume status; no indication to initiate HD currently; -avoid nephrotoxic agents (NSAIDS, phosphate enema, etc); Status: Chronic (3) Resistant hypertension Assessment & Plan: Patient routinely with SBP in 140's-160's on office visits while on 8 anti-htn agents; current low/normal BP not explained simply by excessive diuretics; -holding diuretics; -decreasing clonidine to 0.2 mg tid (decreasing slowly to avoid rebound htn); -holding nifedipine XL; -holding minoxidil; Status: Chronic (4) Chronic kidney disease-mineral and bone disorder Assessment & Plan: Awaiting repeat PTH; new hyperphosphatemia noted; starting phoslo 2 tabs w/ meals; Status: Chronic (5) Anemia of renal disease Assessment & Plan: Hgb <10 today, likely dilutional component given she is receiving IVF Hgb relatively stable, at goal for CKD (10-11 g); on PO ferrous sulfate 324mg po qd, continue; no need for EPO; Status: Acute (6) CHF (congestive heart failure) Assessment & Plan: Currently asymptomatic; discrepancy between echo EF from last year (done in the setting of hypertensive emergency) and more recent stress test, awaiting MUGA scan; holding diuretics for now; Status: Chronic <Shane Rosen - Last Filed: 12/23/17 07:44> Objective - Vital Signs/Intake and Output Vital Signs (last 24 hours): Temp Pulse Resp BP Pulse Ox 98.2 F 68 18 122/69 98 12/22/17 22:18 12/22/17 22:18 12/22/17 22:18 12/22/17 22:18 12/22/17 22:18 Intake and Output: 12/23/17 12/23/17 06:59 18:59 Intake Total 620 Balance 620 - Medications Medications: Current Medications Amoxicillin (Amoxil 500 Mg Cap) 500 mg PO BID [facility] PRN Reason: Protocol Stop: 01/06/18 18:01 Aspirin (Ecotrin) 81 mg PO DAILY [facility] Last Admin: 12/22/17 10:20 Dose: 81 mg Calcium Acetate (Phoslo) 1,334 mg PO WM [facility] Last Admin: 12/22/17 19:37 Dose: 1,334 mg Carvedilol (Coreg) 12.5 mg PO BID [facility] Last Admin: 12/22/17 19:31 Dose: 12.5 mg Clarithromycin (Biaxin Filmtab) 250 mg PO BID [facility] PRN Reason: Protocol Stop: 01/06/18 18:01 Clonidine HCl (Catapres) 0.2 mg PO TID [facility] Last Admin: 12/22/17 19:31 Dose: 0.2 mg Ergocalciferol (Drisdol 50,000 Intl Units Cap) 1 cap PO Q7D [facility] Last Admin: 12/20/17 14:23 Dose: 1 cap Ferrous Sulfate (Feosol) 324 mg PO DAILY [facility] Last Admin: 12/22/17 10:19 Dose: 324 mg Hydralazine HCl (Apresoline) 100 mg PO TID [facility] Last Admin: 12/22/17 19:32 Dose: Not Given Minoxidil (Minoxidil) 10 mg PO BID [facility] Last Admin: 12/21/17 18:00 Dose: Not Given Nifedipine (Procardia Xl) 30 mg PO BID [facility] Last Admin: 12/21/17 20:17 Dose: Not Given Pantoprazole Sodium (Protonix Ec Tab) 20 mg PO 0600,1600 [facility] Stop: 01/05/18 16:01 Last Admin: 12/23/17 05:41 Dose: 20 mg Sodium Bicarbonate (Sodium Bicarbonate Tab) 650 mg PO BID [facility] Last Admin: 12/22/17 19:31 Dose: 650 mg Spironolactone (Aldactone) 25 mg PO BID [facility] Torsemide (Demadex) 20 mg PO BID [facility] - Labs Labs: 12/23/17 07:00 12/22/17 06:10 PT 12.4 SECONDS (9.4-12.5) 12/19/17 22:05 INR 1.09 (0.93-1.08) H 12/19/17 22:05 APTT 31.5 Seconds (25.1-36.5) 12/19/17 22:05 Assessment and Plan (1) Azotemia Status: Acute (2) CKD (chronic kidney disease) stage 5, GFR less than 15 ml/min Status: Chronic (3) Resistant hypertension Status: Chronic (4) Chronic kidney disease-mineral and bone disorder Status: Chronic (5) Anemia of renal disease Status: Acute (6) CHF (congestive heart failure) Status: Chronic Attending/Attestation - Attestation I have personally seen and examined this patient.: Yes I have fully participated in the care of the patient.: Yes I have reviewed all pertinent clinical information, including history, physical exam and plan: Yes Notes (Text): Patient seen and examined; I agree with the resident's note as above with the following edits/additions: CKD V patient being followed by our outpatient service, admitted with abrupt and marked rise in serum BUN with stable serum creatinine; Only mild improvement in BUN with copious IVF over past 2 days; will stop further IVF for now as patient appears euvolemic and with stable BP (no longer low); MUGA scan done today, showing hyperdynamic LV, normal RV; echo ordered by cardio , will f/u and discuss with them; remote possibility is high output heart failure induced by recent AVF creation; Continuing to hold most of BP meds and all diuretics; now only on coreg, clonidine and hydralazine; will decrease clonidine dose further to 0.1 mg tid; Anemia of CKD; downward trend in hgb likely partially dilutional; seen by heme service and given dose of aranesp; no signs of GI bleeding on endoscopic workup ; patient to be treated for H pylori infection; Awaiting results of CrCl from 24 hr urine collection to better assess residual renal function; no need for initiation of HD at this time with stable electrolyte and volume status;
--- NOTE | 2017-12-22 12:31 | CP.PCM.PN ---
<Ronnell Dickerson - Last Filed: 12/22/17 12:35> Subjective - Date & Time of Evaluation Date of Evaluation: 12/22/17 Time of Evaluation: 12:28 - Subjective Subjective: Medicine progress note for Dr. Julee Dickerson PGY3 Patient seen and examined at bedside this morning. No acute overnight events or new complaints reported. Reports that she feels well and has had no chest pain, palpitations, SOB. She is aware that we are awaiting the results of the MUGA scan as well as additional testing. Objective - Vital Signs/Intake and Output Vital Signs (last 24 hours): Temp Pulse Resp BP Pulse Ox 98.3 F 77 20 124/67 97 12/22/17 06:00 12/22/17 06:00 12/22/17 06:00 12/22/17 06:00 12/22/17 06:00 Intake and Output: 12/22/17 12/22/17 06:59 18:59 Intake Total 600 Balance 600 - Medications Medications: Current Medications Aspirin (Ecotrin) 81 mg PO DAILY [facility] Last Admin: 12/22/17 10:20 Dose: 81 mg Calcium Acetate (Phoslo) 1,334 mg PO WM [facility] Last Admin: 12/22/17 10:21 Dose: 1,334 mg Carvedilol (Coreg) 12.5 mg PO BID [facility] Last Admin: 12/22/17 10:22 Dose: 12.5 mg Clonidine HCl (Catapres) 0.2 mg PO TID [facility] Last Admin: 12/22/17 10:21 Dose: 0.2 mg Ergocalciferol (Drisdol 50,000 Intl Units Cap) 1 cap PO Q7D [facility] Last Admin: 12/20/17 14:23 Dose: 1 cap Ferrous Sulfate (Feosol) 324 mg PO DAILY [facility] Last Admin: 12/22/17 10:19 Dose: 324 mg Hydralazine HCl (Apresoline) 100 mg PO TID [facility] Last Admin: 12/22/17 10:19 Dose: 100 mg Sodium Chloride (Sodium Chloride 0.9%) 1,000 mls @ 100 mls/hr IV .Q10H [facility] Last Admin: 12/22/17 10:26 Dose: 100 mls/hr Minoxidil (Minoxidil) 10 mg PO BID [facility] Last Admin: 12/21/17 18:00 Dose: Not Given Nifedipine (Procardia Xl) 30 mg PO BID [facility] Last Admin: 12/21/17 20:17 Dose: Not Given Sodium Bicarbonate (Sodium Bicarbonate Tab) 650 mg PO BID [facility] Last Admin: 12/22/17 10:25 Dose: 650 mg Spironolactone (Aldactone) 25 mg PO BID [facility] Torsemide (Demadex) 20 mg PO BID [facility] - Labs Labs: 12/22/17 06:10 12/22/17 06:10 PT 12.4 SECONDS (9.4-12.5) 12/19/17 22:05 INR 1.09 (0.93-1.08) H 12/19/17 22:05 APTT 31.5 Seconds (25.1-36.5) 12/19/17 22:05 - Constitutional Appears: No Acute Distress - Head Exam Head Exam: ATRAUMATIC, NORMOCEPHALIC - Eye Exam Eye Exam: EOMI Pupil Exam: PERRL - ENT Exam ENT Exam: Mucous Membranes Moist - Neck Exam Neck Exam: Normal Inspection - Respiratory Exam Respiratory Exam: Clear to Ausculation Bilateral. absent: Rales, Rhonchi, Wheezes - Cardiovascular Exam Cardiovascular Exam: RRR, +S1, +S2. absent: Gallop, Rubs - GI/Abdominal Exam GI & Abdominal Exam: Soft. 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 1. Elevated BUN 2. CKD stage V 3. Hypertension 4. Hyperlipidemia 5. Anemia -Nephrology following, Dr. Rosen and pending 24hr creatinine, creatinine clearance and BUN -She is presently on coreg, clonidine (dose decreased) and hydralazine for hx of hypertension -Cardiology has been consulted and patient is pending MUGA scan -Her torsemide, aldactone, minoxidil and nifedipine have been placed on hold per nephrology recommendations -GI was consulted for evaluation of possible GI bleed in light of elevated BUN and anemia however push enteroscopy revealed no evidence of bleeding -Push enteroscopy performed by GI and was reviewed; gastritis with no evidence of active/old bleeding up to the jejunum -CT abdomen/pelvis with oral contrast revealed gastric wall thickening of chronic etiology identified on prior studies, mild edematous change in non- dilated loops of proximal and mid-small bowel consistent with enteritis; see full report -Hemoglobin less than 10 this morning likely dilutional due to IVF hydration; No need for EPO at this time per nephrology; Will continue with oral iron supplementation Patient seen and case discussed/reviewed with attending, Dr. Ladd <Ian aLdd S - Last Filed: 12/22/17 21:37> Objective - Vital Signs/Intake and Output Vital Signs (last 24 hours): Temp Pulse Resp BP Pulse Ox 98.3 F 71 20 121/58 L 97 12/22/17 06:00 12/22/17 13:45 12/22/17 06:00 12/22/17 19:31 12/22/17 06:00 - Medications Medications: Current Medications Amoxicillin (Amoxil 500 Mg Cap) 500 mg PO BID [facility] PRN Reason: Protocol Stop: 01/06/18 18:01 Aspirin (Ecotrin) 81 mg PO DAILY [facility] Last Admin: 12/22/17 10:20 Dose: 81 mg Calcium Acetate (Phoslo) 1,334 mg PO WM [facility] Last Admin: 12/22/17 19:37 Dose: 1,334 mg Carvedilol (Coreg) 12.5 mg PO BID [facility] Last Admin: 12/22/17 19:31 Dose: 12.5 mg Clarithromycin (Biaxin Filmtab) 250 mg PO BID [facility] PRN Reason: Protocol Stop: 01/06/18 18:01 Clonidine HCl (Catapres) 0.2 mg PO TID [facility] Last Admin: 12/22/17 19:31 Dose: 0.2 mg Ergocalciferol (Drisdol 50,000 Intl Units Cap) 1 cap PO Q7D [facility] Last Admin: 12/20/17 14:23 Dose: 1 cap Ferrous Sulfate (Feosol) 324 mg PO DAILY [facility] Last Admin: 12/22/17 10:19 Dose: 324 mg Hydralazine HCl (Apresoline) 100 mg PO TID [facility] Last Admin: 12/22/17 19:32 Dose: Not Given Minoxidil (Minoxidil) 10 mg PO BID [facility] Last Admin: 12/21/17 18:00 Dose: Not Given Nifedipine (Procardia Xl) 30 mg PO BID [facility] Last Admin: 12/21/17 20:17 Dose: Not Given Pantoprazole Sodium (Protonix Ec Tab) 20 mg PO 0600,1600 [facility] Stop: 01/05/18 16:01 Sodium Bicarbonate (Sodium Bicarbonate Tab) 650 mg PO BID [facility] Last Admin: 12/22/17 19:31 Dose: 650 mg Spironolactone (Aldactone) 25 mg PO BID [facility] Torsemide (Demadex) 20 mg PO BID [facility] - Labs Labs: 12/22/17 06:10 12/22/17 06:10 PT 12.4 SECONDS (9.4-12.5) 12/19/17 22:05 INR 1.09 (0.93-1.08) H 12/19/17 22:05 APTT 31.5 Seconds (25.1-36.5) 12/19/17 22:05 Assessment and Plan - Assessment and Plan (Free Text) Plan: Pt seen and examined. I have reviewed the note of the medical assisting program director and agree with it. I have discussed the assessment and plan with the resident. I have reviewed the patient's labs and medications. Pt with CKD 5. HTN is controlled. Spoke to GI and Renal. Pt waiting to get MUGA scan done.
--- NOTE | 2017-12-22 12:45 | CP.PCM.PN ---
<Parth León - Last Filed: 12/22/17 12:47> Subjective - Date & Time of Evaluation Date of Evaluation: 12/22/17 Time of Evaluation: 08:45 - Subjective Subjective: PGY6 GI Fellow Progress Note Patient seen and examined bedside this morning. The patient does endorse occasional epigastric abdominal pain. No evidence for overt GI bleeding per patient. No new symptoms to report and no events overnight. 12 system ROS performed and negative except where stated. Objective - Vital Signs/Intake and Output Vital Signs (last 24 hours): Temp Pulse Resp BP Pulse Ox 98.3 F 77 20 124/67 97 12/22/17 06:00 12/22/17 06:00 12/22/17 06:00 12/22/17 06:00 12/22/17 06:00 Intake and Output: 12/22/17 12/22/17 06:59 18:59 Intake Total 600 Balance 600 - Medications Medications: Current Medications Aspirin (Ecotrin) 81 mg PO DAILY [facility] Last Admin: 12/22/17 10:20 Dose: 81 mg Calcium Acetate (Phoslo) 1,334 mg PO WM [facility] Last Admin: 12/22/17 10:21 Dose: 1,334 mg Carvedilol (Coreg) 12.5 mg PO BID [facility] Last Admin: 12/22/17 10:22 Dose: 12.5 mg Clonidine HCl (Catapres) 0.2 mg PO TID [facility] Last Admin: 12/22/17 10:21 Dose: 0.2 mg Ergocalciferol (Drisdol 50,000 Intl Units Cap) 1 cap PO Q7D [facility] Last Admin: 12/20/17 14:23 Dose: 1 cap Ferrous Sulfate (Feosol) 324 mg PO DAILY [facility] Last Admin: 12/22/17 10:19 Dose: 324 mg Hydralazine HCl (Apresoline) 100 mg PO TID [facility] Last Admin: 12/22/17 10:19 Dose: 100 mg Sodium Chloride (Sodium Chloride 0.9%) 1,000 mls @ 100 mls/hr IV .Q10H [facility] Last Admin: 12/22/17 10:26 Dose: 100 mls/hr Minoxidil (Minoxidil) 10 mg PO BID [facility] Last Admin: 12/21/17 18:00 Dose: Not Given Nifedipine (Procardia Xl) 30 mg PO BID [facility] Last Admin: 12/21/17 20:17 Dose: Not Given Sodium Bicarbonate (Sodium Bicarbonate Tab) 650 mg PO BID [facility] Last Admin: 12/22/17 10:25 Dose: 650 mg Spironolactone (Aldactone) 25 mg PO BID [facility] Torsemide (Demadex) 20 mg PO BID [facility] - Labs Labs: 12/22/17 06:10 12/22/17 06:10 PT 12.4 SECONDS (9.4-12.5) 12/19/17 22:05 INR 1.09 (0.93-1.08) H 12/19/17 22:05 APTT 31.5 Seconds (25.1-36.5) 12/19/17 22:05 - Constitutional Appears: Non-toxic, No Acute Distress - Eye Exam Eye Exam: EOMI, PERRL - ENT Exam ENT Exam: Mucous Membranes Moist - Respiratory Exam Respiratory Exam: Clear to Ausculation Bilateral. absent: Rales, Rhonchi, Wheezes - Cardiovascular Exam Cardiovascular Exam: RRR, +S1, +S2 - GI/Abdominal Exam GI & Abdominal Exam: Soft, Tenderness (epigastric, mild), Normal Bowel Sounds. absent: Distended, Firm, Guarding, Rigid, Organomegaly - Extremities Exam Extremities Exam: Normal Inspection. absent: Pedal Edema - Neurological Exam Neurological Exam: Alert, Awake, Oriented x3 - Psychiatric Exam Psychiatric exam: Normal Affect, Normal Mood - Skin Skin Exam: Dry, Warm Assessment and Plan - Assessment and Plan (Free Text) Assessment: Patient is a 52yo female with PMHx significant for CKD, HTN, HLD, H/O PRES syndrome, anemia who presented to the ED with abnormal lab results, BUN 152. Our service was consulted for concern of possible occult GI hemorrhage. -CKD with worsening BUN -Anemia Plan: -S/P push enteroscopy without evidence for acute GI bleeding -Suspect anemia may be 2/2 ongoing renal dysfunction but patient would likely benefit from hematology consultation -Nephrology following - appreciate recs -Will arrange for outpatient follow up and video capsule endoscopy -No further planned interventions at this juncture <Hilda Ribeiro V - Last Filed: 12/22/17 22:12> Objective - Vital Signs/Intake and Output Vital Signs (last 24 hours): Temp Pulse Resp BP Pulse Ox 98.3 F 71 20 121/58 L 97 12/22/17 06:00 12/22/17 13:45 12/22/17 06:00 12/22/17 19:31 12/22/17 06:00 - Medications Medications: Current Medications Amoxicillin (Amoxil 500 Mg Cap) 500 mg PO BID [facility] PRN Reason: Protocol Stop: 01/06/18 18:01 Aspirin (Ecotrin) 81 mg PO DAILY [facility] Last Admin: 12/22/17 10:20 Dose: 81 mg Calcium Acetate (Phoslo) 1,334 mg PO WM [facility] Last Admin: 12/22/17 19:37 Dose: 1,334 mg Carvedilol (Coreg) 12.5 mg PO BID [facility] Last Admin: 12/22/17 19:31 Dose: 12.5 mg Clarithromycin (Biaxin Filmtab) 250 mg PO BID [facility] PRN Reason: Protocol Stop: 01/06/18 18:01 Clonidine HCl (Catapres) 0.2 mg PO TID [facility] Last Admin: 12/22/17 19:31 Dose: 0.2 mg Ergocalciferol (Drisdol 50,000 Intl Units Cap) 1 cap PO Q7D [facility] Last Admin: 12/20/17 14:23 Dose: 1 cap Ferrous Sulfate (Feosol) 324 mg PO DAILY [facility] Last Admin: 12/22/17 10:19 Dose: 324 mg Hydralazine HCl (Apresoline) 100 mg PO TID [facility] Last Admin: 12/22/17 19:32 Dose: Not Given Minoxidil (Minoxidil) 10 mg PO BID [facility] Last Admin: 12/21/17 18:00 Dose: Not Given Nifedipine (Procardia Xl) 30 mg PO BID [facility] Last Admin: 12/21/17 20:17 Dose: Not Given Pantoprazole Sodium (Protonix Ec Tab) 20 mg PO 0600,1600 [facility] Stop: 01/05/18 16:01 Sodium Bicarbonate (Sodium Bicarbonate Tab) 650 mg PO BID [facility] Last Admin: 12/22/17 19:31 Dose: 650 mg Spironolactone (Aldactone) 25 mg PO BID [facility] Torsemide (Demadex) 20 mg PO BID [facility] - Labs Labs: 12/22/17 06:10 12/22/17 06:10 PT 12.4 SECONDS (9.4-12.5) 12/19/17 22:05 INR 1.09 (0.93-1.08) H 12/19/17 22:05 APTT 31.5 Seconds (25.1-36.5) 12/19/17 22:05 Attending/Attestation - Attestation I have personally seen and examined this patient.: Yes I have fully participated in the care of the patient.: Yes I have reviewed all pertinent clinical information, including history, physical exam and plan: Yes Notes (Text): This is an addendum to GI progress report dictated by the GI Fellow.The patient was seen and examined earlier. Medical records, lab studies, imagings were reviewed. Last 24 hours events reviewed. Agreed with the above treatment plan as outlined in GI Fellow 's notes the with the addition of the following discussed with PCP and global supply chain director. On examination abdomen softtenderness We'll has gastric erosions , push enteroscopy revealed ele erosions. History of H. pylori gastritis Will consider treatment of her H pylori a sree carefully reviewing drug interactions and dose adjustment in this patient with end-stage renal disease which is rather challenging.1 12/22/17 22:05
--- NOTE | 2017-12-22 13:54 | HP ---
DATE OF EXAM: 12/20/2017 The patient was seen and examined on the bedside in the Emergency Room on 12/20/2017. CHIEF COMPLAINT: ab. labs HISTORY OF PRESENT ILLNESS: Ms. Jessica Jarrett is a 52-year-old female with past medical history of end-stage renal disease, hypertension, hypercholesterolemia, PRES syndrome, anemia, came to the Emergency Department for abnormal labs. Patient had lab performed earlier the day of admission by her cooling pipe inspector, Dr. Shane Rosen and her BUN was noted to be 157. Patient was advised to go to the emergency room for further evaluation. Patient has a history of prior worsening renal insufficiency, accelerated hypertension, looks like patient has long-standing hypertension, being prepped for eventual dialysis. Patient states that she still urinates, concern for possible anemia reflective of her increased BUN. Patient denies any dark bloody stool. No bleeding. Patient denied any fever, chills, chest pain, shortness of breath, nausea, vomiting, neck pain, headache, dizziness, or any other complaints. PAST MEDICAL HISTORY: As above. Patient has a history of cataract, glaucoma, left eye surgery, constipation, caesarean section, right eye surgery. FAMILY HISTORY: Father and mother, noncontributory. HABITS: History of former smoker, now quit on 08/20/2016. ALLERGIES: STRING BEANS ALLERGY. HOME MEDICATIONS: Coreg, sodium bicarbonate, Aldactone, Catapres, nifedipine, hydralazine, Lipitor, Plavix, Feosol, minoxidil, Demadex, vitamin D3, and Lasix. REVIEW OF SYSTEMS: Patient was seen and examined on the bedside in the ER, looking comfortable. No nausea, vomiting, or diarrhea. No hematuria or hematochezia. No swelling of the leg. No chest pain. No palpitation. No headache. No dizziness. PHYSICAL EXAMINATION: VITAL SIGNS: Temperature 98.6, pulse 71, respirations 19, blood pressure 140/89, pulse oximetry 100. HEENT: Head: Normocephalic, atraumatic. Eyes: PERRLA. Extraocular muscles are intact. Conjunctivae are clear. Nose patent. NECK: Supple. No carotid bruit, JVD, or thyromegaly. CHEST: Bilaterally symmetrical. HEART: S1 and S2 positive. LUNGS: Clear to auscultation. ABDOMEN: Soft. Bowel sounds present. No organomegaly. EXTREMITIES: No edema. No cyanosis. NEUROLOGIC: Patient is awake and alert. Moving all 4 extremities. No focal deficit. LABORATORY DATA: White blood cells 6, hemoglobin 11.8, hematocrit 31.6, platelet 235. Sodium 133, potassium 3.4, BUN 152, creatinine 4.8, glucose 128. ASSESSMENT AND PLAN: Ms. Jessica Jarrett is a 52-year-old lady with anemia; hypokalemia, replaced; renal insufficiency, acute on chronic; hyperglycemia; history of accelerated hypertension; has [id number] renal failure; dehydration. Patient is admitted. Consult called of Dr. Rosen. According to him, patient has chronic kidney disease stage V, hypercholesterolemia, posterior reversible encephalopathy syndrome, multiple caesarean sections, former smoker, used to smoke 5 to 6 cigars per day, former alcohol consumer quit one year ago. She was admitted. Airport Attendant is on the case. GI and deep vein thrombosis prophylaxis. Repeat labs. We will follow up. Karli Laureano MD [facility]
[2017-12-22] MEDS ORDERED: Darbepoetin Alfa 100 mcg/ml Inj SC ONE (17:22)
[2017-12-22 18:35] LABS: URINE 24 HOUR UREA NITROGEN 14.05 GM/24HR (6-17)
--- NOTE | 2017-12-22 18:50 | PN ---
DATE: 12/22/2017 REASON FOR THE CONSULTATION AND FOLLOWUP: Cardiac evaluation, renal failure, hypertension, and cardiomyopathy. SUBJECTIVE: The patient denies any chest pain, shortness of breath, or any palpitation. OBJECTIVE: GENERAL: Not in any apparent distress, lying flat on the bed. VITAL SIGNS: Temperature afebrile, heart rate 77, blood pressure . HEENT: PERRLA. Extraocular muscles intact. NECK: Supple. No carotid bruits or thyromegaly. CHEST: Clear to auscultation. HEART: S1 and S2, regular. ABDOMEN: Soft. EXTREMITIES: Clubbing and cyanosis negative. LABORATORY DATA: Blood workup as follows; WBC 6.3, hemoglobin9.3, hematocrit 26.2, and platelet count 185. Chemistry shows sodium 130, potassium 3, chloride 96, carbon dioxide 20, anion gap of 21. BUN 136, creatinine 4.8. BNP 4860. IMPRESSION: A 52-year-old female with past medical history of cardiomyopathy, stage IV to V chronic kidney disease, admitted with worsening renal insufficiency and hypertension. The patient is going for arteriovenous fistula. Previous cardiac workup shows a stress test on 02/03/2017, negative for ischemia, ejection fraction 62%. The patient had an echo on 09/13/2016, which shows left ventricular hypertrophy with ejection fraction of 35% to 40%, right ventricular systolic pressure of 33, mild mitral regurgitation, mild tricuspid regurgitation, trace pulmonary insufficiency, trace aortic regurgitation. Stage IV to V chronic kidney disease, . Clinically, the patient's status is stable. We will get echo in 2 days to see the left ventricular function as well as the MUGA scan to assess the ejection fraction. The patient is going for endoscopy today. The patient is cleared to go for endoscopy. No contraindication to go for endoscopy. The patient has agreed with Dr. Ladd as well as Dr. Rosen, the patient is close to dialysis. We will follow with you. We will get lipid profile, TSH, and hemoglobin A1c as well. Thank you Dr. Ladd/Dr. Laureano, for providing us the opportunity in taking care of patient, Jessica Jarrett. Dr. Ladd was covering for Dr. Laureano. Kristine Alejandre MD [facility] # [id number]
--- NOTE | 2017-12-22 21:41 | CARD ---
APPROVED REPORT INDICATION LV DYSFUNTION,RENAL FAILURE,EVALUATE EJECTION FRACTION PROCEDURE The above named patient recieved 28.7 millicuries of Tc99m tagged red blood cells intravenously. After achieving equilibrium, gated imaging of 16/frame/cycle was performed utillizing Gamma camera interfaced with a digital computer and gated device. Gated imaging was then performed in the left anterior oblique, anterior, and the left lateral projections. Findings Left Ventricle: The quality of the study is good. The left ventricle is within normal limits in size. The right ventricle is normal in size. Wall motion study shows hypercontractility of the left ventricle. RV wall motion is normal. The right atrium is dynamic.. The remainder of the study is unremarkable. Impressions Hypercontractile left ventricle. LVEF = 83%. Normal RV wall motion.
--- NOTE | 2017-12-23 02:04 | CON ---
DATE: 12/22/2017 REASON FOR CONSULTATION: Anemia, chronic kidney disease. HISTORY OF PRESENT ILLNESS: Ms. Jarrett is a 52-year-old female with end-stage renal disease, admitted with elevated BUN and creatinine. She has longstanding history of hypertension. Hemoglobin declined to 9.5 on admission; on 12/19/2017, it was 11.8. Creatinine elevated to 4.8. Iron studies are within normal limits. She complains of fatigue. No shortness of breath. PAST MEDICAL HISTORY: Hypertension, end-stage renal disease, hypercholesterolemia, anemia. PAST SURGICAL HISTORY: , right eye surgery, glaucoma surgery. FAMILY HISTORY: Father and mother, not contributory. PERSONAL HISTORY: Former smoker. No history of alcohol abuse. ALLERGIES: NO KNOWN DRUG ALLERGIES. HOME MEDICATIONS: Aldactone, Catapres, nifedipine, hydralazine, Lipitor, Plavix, Feosol, Demadex, vitamin D and Lasix. REVIEW OF SYSTEMS: As per HPI. Rest of 12-point review of systems is reviewed and negative. PHYSICAL EXAMINATION: VITAL SIGNS: Temperature 98.7, heart rate 80 per minute, blood pressure 140/90, pulse ox is 100% on room air. HEENT: Pallor positive. NECK: No lymphadenopathy. CHEST: Air entry present and equal bilateral. No added sounds. CARDIOVASCULAR: S1, S2 normal. No murmur. No gallop. ABDOMEN: Soft, nontender. No hepatosplenomegaly. EXTREMITIES: No edema. NEUROLOGIC: Alert and oriented x3. No focal sensory or motor deficit. LABORATORY DATA: White count 6.7, hemoglobin 9.5, hematocrit 26.2, platelet 185. Sodium 135, potassium 3.3, BUN 138, creatinine 4.8, iron 113, iron saturation 34, ferritin 60.8. LFTs within normal limits. BNP elevated. ASSESSMENT: 1. Anemia. 2. Mpsfk-al-kpfhokf renal failure. 3. Hypertension. 4. Hypercholesterolemia. PLAN: Anemia. Iron studies are within normal limits. Anemia likely related to chronic kidney disease. She will need initiation of erythropoietin stimulating agents. Aranesp 100 mcg subcu to be given today. She will need continuation of Procrit/Aranesp upon discharge from the hospital. Discussed my recommendation with the patient. She agreed with the plan. Daughter is at bedside, discussed with the daughter also. Evaluated by Dr. Rosen, fabric and accessories estimator, being evaluated for initiation of hemodialysis. Iron studies within normal limits, does not need iron supplementation now. Thank you Dr. Laureano for allowing us to participate in Ms. Jarrett's care. We will continue to follow. Teodora Ba MD
[2017-12-23] MEDS: Pantoprazole 20 mg EC Tab PO SCH ×2 (05:41→17:59)
[2017-12-23 07:25] LABS: BASO # 0.02 K/mm3 (0.0-2.0); BASO % 0.5 % (0.0-3.0); EOS # 0.2 (0.0-0.7); EOS % 5.5 % (1.5-5.0); GRAN # 1.92 (1.4-6.5); GRAN % 48.2 % (50.0-68.0); HEMOGLOBIN 9.1 g/dL (12.0-16.0); LYMPH # 1.4 (1.2-3.4); LYMPH % 35.2 % (22.0-35.0); MEAN CELL VOLUME 80.9 fl (80.0-105.0); MEAN CORPUSCULAR HEMOGLOBIN 29.4 pg (25.0-35.0); MEAN CORPUSCULAR HGB CONC 36.4 g/dl (31.0-37.0); MEAN PLATELET VOLUME 12.2 fl (7.0-11.0); MONO # 0.4 (0.1-0.6); MONO % 10.6 % (1.0-6.0); RBC 3.09 10^6/uL (3.5-6.1); RED CELL DISTRIBUTION WIDTH 12.9 % (11.5-14.5)
[2017-12-23 08:26] LABS: ALB/GLOB RATIO 1.3 (1.1-1.8); CALCIUM 8.7 mg/dL (8.4-10.5)
[2017-12-23 08:37] VITALS: O2SAT 100
--- NOTE | 2017-12-23 08:57 | CARD ---
APPROVED REPORT EKG Measurement Heart [id number] NM [id number] <Conclusion> Normal sinus rhythm Left ventricular hypertrophy with repolarization abnormality Cannot rule out Septal infarct, age undetermined STTW changes c/w ischemia No PVCs now c/w ECG 12/19/17
--- NOTE | 2017-12-23 09:48 | CP.PCM.PN ---
<Gladis Barlow - Last Filed: 12/23/17 12:29> Subjective - Date & Time of Evaluation Date of Evaluation: 12/23/17 Time of Evaluation: 09:30 - Subjective Subjective: PGY-1 Nephrology Progress Note for Dr. Rosen's service Patient seen and examined at bedside. No acute events reported overnight. Patient is tolerating diet. Patient is continuing to urinate with no complaints. Patient wants to discuss why her blood pressure is low because she usually runs high. Denies chest pain, SOB, n/v/d/c, and fevers. Objective - Vital Signs/Intake and Output Vital Signs (last 24 hours): Temp Pulse Resp BP Pulse Ox 98.3 F 61 20 109/62 100 12/23/17 06:00 12/23/17 06:00 12/23/17 06:00 12/23/17 06:00 12/23/17 06:00 Intake and Output: 12/23/17 12/23/17 06:59 18:59 Intake Total 620 Balance 620 - Medications Medications: Current Medications Amoxicillin (Amoxil 500 Mg Cap) 500 mg PO BID [facility] PRN Reason: Protocol Stop: 01/06/18 18:01 Aspirin (Ecotrin) 81 mg PO DAILY [facility] Last Admin: 12/22/17 10:20 Dose: 81 mg Calcium Acetate (Phoslo) 1,334 mg PO WM [facility] Last Admin: 12/23/17 08:25 Dose: 1,334 mg Carvedilol (Coreg) 12.5 mg PO BID [facility] Last Admin: 12/22/17 19:31 Dose: 12.5 mg Clarithromycin (Biaxin Filmtab) 250 mg PO BID [facility] PRN Reason: Protocol Stop: 01/06/18 18:01 Clonidine HCl (Catapres) 0.2 mg PO TID [facility] Last Admin: 12/22/17 19:31 Dose: 0.2 mg Ergocalciferol (Drisdol 50,000 Intl Units Cap) 1 cap PO Q7D [facility] Last Admin: 12/20/17 14:23 Dose: 1 cap Ferrous Sulfate (Feosol) 324 mg PO DAILY [facility] Last Admin: 12/22/17 10:19 Dose: 324 mg Hydralazine HCl (Apresoline) 100 mg PO TID [facility] Last Admin: 12/22/17 19:32 Dose: Not Given Minoxidil (Minoxidil) 10 mg PO BID [facility] Last Admin: 12/21/17 18:00 Dose: Not Given Nifedipine (Procardia Xl) 30 mg PO BID [facility] Last Admin: 12/21/17 20:17 Dose: Not Given Pantoprazole Sodium (Protonix Ec Tab) 20 mg PO 0600,1600 [facility] Stop: 01/05/18 16:01 Last Admin: 12/23/17 05:41 Dose: 20 mg Potassium Chloride (Potassium Chloride Oral Soln) 40 meq PO ONCE ONE Stop: 12/23/17 11:04 Sodium Bicarbonate (Sodium Bicarbonate Tab) 650 mg PO BID [facility] Last Admin: 12/22/17 19:31 Dose: 650 mg Spironolactone (Aldactone) 25 mg PO BID [facility] Torsemide (Demadex) 20 mg PO BID [facility] - Labs Labs: 12/23/17 07:00 12/23/17 07:00 PT 12.4 SECONDS (9.4-12.5) 12/19/17 22:05 INR 1.09 (0.93-1.08) H 12/19/17 22:05 APTT 31.5 Seconds (25.1-36.5) 12/19/17 22:05 - Additional Findings Additional findings: - Constitutional Appears: Non-toxic, No Acute Distress - Eye Exam Eye Exam: absent: Scleral icterus - ENT Exam ENT Exam: Mucous Membranes Moist - Respiratory Exam Respiratory Exam: Clear to Ausculation Bilateral. absent: Respiratory Distress - Cardiovascular Exam Cardiovascular Exam: Regular Rhythm, +S1, +S2. absent: Gallop - GI/Abdominal Exam GI & Abdominal Exam: Soft. absent: Distended, Tenderness - Extremities Exam Additional comments: no leg edema; - Neurological Exam Neurological Exam: Alert, Awake - Psychiatric Exam Psychiatric exam: Normal Mood. absent: Agitated - Skin Skin Exam: Warm. absent: Cyanosis Assessment and Plan - Assessment and Plan (Free Text) Assessment: Patient is a 52 y.o female with PMH of CKD, HTN, HLD, PRES syndrome, and anemia who was admitted to [facility] after outpatient labwork showed elevated BUN (152). Plan: (1) Azotemia Assessment & Plan: Marked elevation of BUN from baseline of 70's -> 160's without concomitant increase in serum creatinine; etiology unclear with only mild improvement on IVF ; upper GI bleed essentially ruled out by endoscopy and relatively stably hgb; stable serum creatinine with relatively stable weight goes against deteriorating renal function; still suspecting pre-renal etiology, not simply due to volume depletion but rather decreased renal perfusion in the setting of unusually low BP for patient; -dicontinued IVF due to mild improvement in BUN -awaiting further workup; MUGA scan- shows hyperdynamic LV; -Awaiting Echo to rule out Pulmonary HTN; possible increased BUN due to high output failure after recent insertion of fistula; -standing weights daily -follow-up 24 hour urine creatinine and bun to better assess renal function -see below regarding BP meds; Status: Acute (2) CKD (chronic kidney disease) stage 5, GFR less than 15 ml/min Assessment & Plan: Being prepared for HD in the near future; R arm AVF w/ good bruit, to see vascular surgery next week to setup transposition procedure; otherwise, no overt uremic signs/symptoms and stable electrolyte/volume status; no indication to initiate HD currently; -avoid nephrotoxic agents (NSAIDS, phosphate enema, etc); Status: Chronic (3) Resistant hypertension Assessment & Plan: Patient routinely with SBP in 140's-160's on office visits while on 8 anti-htn agents; current low/normal BP not explained simply by excessive diuretics; -BP 129/74; earlier today BP- 109/62 -holding diuretics; -decreasing clonidine to 0.1 mg tid (decreasing slowly to avoid rebound htn); -decreased coreg after conversation with cardiology to 3.125 po bid because of low pulse -holding nifedipine XL; -holding minoxidil; Status: Chronic (4) Chronic kidney disease-mineral and bone disorder Assessment & Plan: Awaiting repeat PTH; new hyperphosphatemia noted; starting phoslo 2 tabs w/ meals; Status: Chronic (5) Anemia of renal disease Assessment & Plan: Hgb <10 today, IVF stable Hgb relatively stable at goal for CKD (10-11 g); on PO ferrous sulfate 324mg po qd, continue; no need for EPO; Patient clinically stable Status: Acute (6) CHF (congestive heart failure) Assessment & Plan: MUGA scan yesterday shows 83% EF; Awaiting Echo results Status: Chronic <Shane Rosen - Last Filed: 12/24/17 06:16> Objective - Vital Signs/Intake and Output Vital Signs (last 24 hours): Temp Pulse Resp BP Pulse Ox 98.2 F 62 18 124/82 100 12/23/17 22:00 12/23/17 22:00 12/23/17 22:00 12/23/17 22:00 12/23/17 22:00 Intake and Output: 12/23/17 12/24/17 18:59 06:59 Intake Total 620 Balance 620 - Medications Medications: Current Medications Amoxicillin (Amoxil 500 Mg Cap) 500 mg PO BID [facility] PRN Reason: Protocol Stop: 01/06/18 18:01 Aspirin (Ecotrin) 81 mg PO DAILY [facility] Last Admin: 12/23/17 11:27 Dose: 81 mg Calcium Acetate (Phoslo) 1,334 mg PO WM [facility] Last Admin: 12/23/17 17:56 Dose: 1,334 mg Carvedilol (Coreg) 3.125 mg PO BID [facility] Last Admin: 12/23/17 19:43 Dose: 3.125 mg Clarithromycin (Biaxin Filmtab) 250 mg PO BID [facility] PRN Reason: Protocol Stop: 01/06/18 18:01 Clonidine HCl (Catapres) 0.1 mg PO TID [facility] Last Admin: 12/23/17 17:55 Dose: Not Given Ergocalciferol (Drisdol 50,000 Intl Units Cap) 1 cap PO Q7D [facility] Last Admin: 12/20/17 14:23 Dose: 1 cap Ferrous Sulfate (Feosol) 324 mg PO DAILY [facility] Last Admin: 12/23/17 11:27 Dose: 324 mg Hydralazine HCl (Apresoline) 50 mg PO TID [facility] Last Admin: 12/23/17 17:55 Dose: Not Given Minoxidil (Minoxidil) 10 mg PO BID [facility] Last Admin: 12/21/17 18:00 Dose: Not Given Nifedipine (Procardia Xl) 30 mg PO BID [facility] Last Admin: 12/21/17 20:17 Dose: Not Given Pantoprazole Sodium (Protonix Ec Tab) 20 mg PO 0600,1600 [facility] Stop: 01/05/18 16:01 Last Admin: 12/24/17 05:30 Dose: 20 mg Sodium Bicarbonate (Sodium Bicarbonate Tab) 650 mg PO BID [facility] Last Admin: 12/23/17 19:42 Dose: 650 mg Spironolactone (Aldactone) 25 mg PO BID [facility] Torsemide (Demadex) 20 mg PO BID [facility] - Labs Labs: 12/23/17 07:00 12/23/17 07:00 PT 12.4 SECONDS (9.4-12.5) 12/19/17 22:05 INR 1.09 (0.93-1.08) H 12/19/17 22:05 APTT 31.5 Seconds (25.1-36.5) 12/19/17 22:05 Assessment and Plan (1) Azotemia Status: Acute (2) CKD (chronic kidney disease) stage 5, GFR less than 15 ml/min Status: Chronic (3) Resistant hypertension Status: Chronic (4) Chronic kidney disease-mineral and bone disorder Status: Chronic (5) Anemia of renal disease Status: Acute (6) CHF (congestive heart failure) Status: Chronic Attending/Attestation - Attestation I have personally seen and examined this patient.: Yes I have fully participated in the care of the patient.: Yes I have reviewed all pertinent clinical information, including history, physical exam and plan: Yes Notes (Text): Patient seen and examined; I agree with the resident's note as above with the following edits/additions: Patient with resistant htn, CKD V, admitted for azotemia with abrupt and marked increase in serum BUN; BUN level decreasing gradually with reduction in BP meds and IVF (stopped yesterday); etiology appears pre-renal likely due to decreased renal perfusion and possibly triggered by placement of AVF 2 months ago; echo showing increase in PA pressure/TR compared to study done last year which may be consistent with high output heart failure due to AVF and may account for drastic reduction in BP lately (previously on 8 meds including 2 diuretics for much of the past year) ; additional diuresis by us last month likely worsened pre-renal state; Patient currently is asymptomatic; BP meds reduced even further on discussion with cardiology service; coreg decreased from 12.5 to 3.125 mg bid (not due to decreased HR but to avoid hypotension), hydralazine cut in half to 50 mg tid; clonidine further decreased to 0.1 mg tid; Patient being advised to ambulate; should be ready for d/c tomorrow; 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
--- NOTE | 2017-12-23 10:43 | CP.PCM.PN ---
<Ronnell Dickerson - Last Filed: 12/23/17 11:12> Subjective - Date & Time of Evaluation Date of Evaluation: 12/23/17 Time of Evaluation: 10:39 - Subjective Subjective: Medicine progress note for Dr. Ladd's service - Tere Dickerson PGY3 Patient seen and examined at bedside this morning with her daughter at bedside. No acute overnight events or new complaints reported. Presently denies chest pain, palpitations, SOB. Objective - Vital Signs/Intake and Output Vital Signs (last 24 hours): Temp Pulse Resp BP Pulse Ox 98.3 F 61 20 109/62 100 12/23/17 06:00 12/23/17 06:00 12/23/17 06:00 12/23/17 06:00 12/23/17 06:00 Intake and Output: 12/23/17 12/23/17 06:59 18:59 Intake Total 620 Balance 620 - Medications Medications: Current Medications Amoxicillin (Amoxil 500 Mg Cap) 500 mg PO BID [facility] PRN Reason: Protocol Stop: 01/06/18 18:01 Aspirin (Ecotrin) 81 mg PO DAILY [facility] Last Admin: 12/22/17 10:20 Dose: 81 mg Calcium Acetate (Phoslo) 1,334 mg PO WM [facility] Last Admin: 12/23/17 08:25 Dose: 1,334 mg Carvedilol (Coreg) 12.5 mg PO BID [facility] Last Admin: 12/22/17 19:31 Dose: 12.5 mg Clarithromycin (Biaxin Filmtab) 250 mg PO BID [facility] PRN Reason: Protocol Stop: 01/06/18 18:01 Clonidine HCl (Catapres) 0.2 mg PO TID [facility] Last Admin: 12/22/17 19:31 Dose: 0.2 mg Ergocalciferol (Drisdol 50,000 Intl Units Cap) 1 cap PO Q7D [facility] Last Admin: 12/20/17 14:23 Dose: 1 cap Ferrous Sulfate (Feosol) 324 mg PO DAILY [facility] Last Admin: 12/22/17 10:19 Dose: 324 mg Hydralazine HCl (Apresoline) 100 mg PO TID [facility] Last Admin: 12/22/17 19:32 Dose: Not Given Minoxidil (Minoxidil) 10 mg PO BID [facility] Last Admin: 12/21/17 18:00 Dose: Not Given Nifedipine (Procardia Xl) 30 mg PO BID [facility] Last Admin: 12/21/17 20:17 Dose: Not Given Pantoprazole Sodium (Protonix Ec Tab) 20 mg PO 0600,1600 [facility] Stop: 01/05/18 16:01 Last Admin: 12/23/17 05:41 Dose: 20 mg Potassium Chloride (Potassium Chloride Oral Soln) 40 meq PO ONCE ONE Stop: 12/23/17 11:04 Sodium Bicarbonate (Sodium Bicarbonate Tab) 650 mg PO BID [facility] Last Admin: 12/22/17 19:31 Dose: 650 mg Spironolactone (Aldactone) 25 mg PO BID [facility] Torsemide (Demadex) 20 mg PO BID [facility] - Labs Labs: 12/23/17 07:00 12/23/17 07:00 PT 12.4 SECONDS (9.4-12.5) 12/19/17 22:05 INR 1.09 (0.93-1.08) H 12/19/17 22:05 APTT 31.5 Seconds (25.1-36.5) 12/19/17 22:05 - Constitutional Appears: No Acute Distress - Head Exam Head Exam: ATRAUMATIC, NORMAL INSPECTION, NORMOCEPHALIC - Eye Exam Eye Exam: EOMI Pupil Exam: PERRL - ENT Exam ENT Exam: Mucous Membranes Moist - Neck Exam Neck Exam: Normal Inspection - Respiratory Exam Respiratory Exam: absent: Rales, Rhonchi, Wheezes - Cardiovascular Exam Cardiovascular Exam: +S1, +S2. absent: Gallop, JVD, Rubs - GI/Abdominal Exam GI & Abdominal Exam: Soft. absent: Distended, Firm, Guarding, Rigid, Tenderness , Rebound - Neurological Exam Neurological Exam: Alert, Awake, CN II-XII Intact, Oriented x3 - Psychiatric Exam Psychiatric exam: Normal Affect, Normal Mood - Skin Skin Exam: Dry, Intact, Normal Color, Warm Assessment and Plan - Assessment and Plan (Free Text) Plan: 52yo female with history of CKD stage V, hypertension, hyperlipidemia, PRES syndrome, and anemia who presented to [facility] upon recommendation of her liquid sugar melter due to outpatient labwork indicating BUN 152. 1. Elevated BUN 2. CKD stage V 3. Hypertension 4. Hyperlipidemia 5. Anemia 6. Hx of hpylori gastritis (treatment naive) -Case discussed with nephrology this morning, awaiting results of echocardiogram for evaluation of pulmonary hypertension -She is presently on coreg, clonidine (dose decreased) and hydralazine for hx of hypertension -She was started on triple therapy for her hpylori gastritis per GI recommendations -Cardiology has been consulted and echocardiogram is pending -MUGA scan was reviewed which revealed LVEF of 83% with normal RV wall motion -Her torsemide, aldactone, minoxidil and nifedipine have been placed on hold per nephrology recommendations due to hypotension -GI was consulted for evaluation of possible GI bleed in light of elevated BUN and anemia however push enteroscopy revealed no evidence of bleeding -Push enteroscopy performed by GI and was reviewed; gastritis with no evidence of active/old bleeding up to the jejunum -CT abdomen/pelvis with oral contrast revealed gastric wall thickening of chronic etiology identified on prior studies, mild edematous change in non- dilated loops of proximal and mid-small bowel consistent with enteritis; see full report -Hemoglobin less than 10 this morning likely dilutional due to IVF hydration; No need for EPO at this time per nephrology; Will continue with oral iron supplementation Patient seen and case discussed/reviewed with attending, Dr. Ladd <Ian Ladd S - Last Filed: 12/25/17 09:42> Objective - Vital Signs/Intake and Output Vital Signs (last 24 hours): Temp Pulse Resp BP Pulse Ox 98.2 F 63 16 157/88 H 100 12/24/17 06:00 12/24/17 06:00 12/24/17 06:00 12/24/17 06:00 12/24/17 06:00 - Labs Labs: 12/24/17 07:00 12/24/17 07:00 PT 12.4 SECONDS (9.4-12.5) 12/19/17 22:05 INR 1.09 (0.93-1.08) H 12/19/17 22:05 APTT 31.5 Seconds (25.1-36.5) 12/19/17 22:05 Assessment and Plan - Assessment and Plan (Free Text) Plan: Pt seen and examined on 12-23-17 and this is a late entry. I have reviewed the note of the medical referral coordinator and agree with it. I have discussed the assessment and plan with the resident. I have reviewed the patient's labs and medications. BUN improvning. BP is controlled. Spoke to Renal. Pt will need pill endoscopy as outpatient.
[2017-12-23] MEDS ORDERED: Potassium Chloride 40 mEq/30 ml LIQ UD PO ONE (11:03)
[2017-12-23] MEDS ORDERED: Potassium Chloride 20 mEq ER Tab PO ONE (11:27)
--- NOTE | 2017-12-23 11:50 | CP.PCM.PN ---
<Parth León - Last Filed: 12/23/17 18:41> Subjective - Date & Time of Evaluation Date of Evaluation: 12/23/17 Time of Evaluation: 09:00 - Subjective Subjective: PGY6 GI Fellow Progress Note Patient seen and examined bedside this morning. The patient states that she is feeling well today. Denies abdominal pain presently. No nausea, vomiting, fever , chills. 12 system ROS performed and negative except where stated. Objective - Vital Signs/Intake and Output Vital Signs (last 24 hours): Temp Pulse Resp BP Pulse Ox 98.3 F 64 20 129/74 100 12/23/17 06:00 12/23/17 11:26 12/23/17 06:00 12/23/17 11:26 12/23/17 06:00 Intake and Output: 12/23/17 12/23/17 06:59 18:59 Intake Total 620 Balance 620 - Medications Medications: Current Medications Amoxicillin (Amoxil 500 Mg Cap) 500 mg PO BID [facility] PRN Reason: Protocol Stop: 01/06/18 18:01 Aspirin (Ecotrin) 81 mg PO DAILY [facility] Last Admin: 12/23/17 11:27 Dose: 81 mg Calcium Acetate (Phoslo) 1,334 mg PO WM [facility] Last Admin: 12/23/17 08:25 Dose: 1,334 mg Carvedilol (Coreg) 3.125 mg PO BID [facility] Clarithromycin (Biaxin Filmtab) 250 mg PO BID [facility] PRN Reason: Protocol Stop: 01/06/18 18:01 Clonidine HCl (Catapres) 0.1 mg PO TID [facility] Ergocalciferol (Drisdol 50,000 Intl Units Cap) 1 cap PO Q7D [facility] Last Admin: 12/20/17 14:23 Dose: 1 cap Ferrous Sulfate (Feosol) 324 mg PO DAILY [facility] Last Admin: 12/23/17 11:27 Dose: 324 mg Hydralazine HCl (Apresoline) 50 mg PO TID [facility] Minoxidil (Minoxidil) 10 mg PO BID [facility] Last Admin: 12/21/17 18:00 Dose: Not Given Nifedipine (Procardia Xl) 30 mg PO BID [facility] Last Admin: 12/21/17 20:17 Dose: Not Given Pantoprazole Sodium (Protonix Ec Tab) 20 mg PO 0600,1600 [facility] Stop: 01/05/18 16:01 Last Admin: 12/23/17 05:41 Dose: 20 mg Sodium Bicarbonate (Sodium Bicarbonate Tab) 650 mg PO BID [facility] Last Admin: 12/23/17 11:26 Dose: 650 mg Spironolactone (Aldactone) 25 mg PO BID [facility] Torsemide (Demadex) 20 mg PO BID [facility] - Labs Labs: 12/23/17 07:00 12/23/17 07:00 PT 12.4 SECONDS (9.4-12.5) 12/19/17 22:05 INR 1.09 (0.93-1.08) H 12/19/17 22:05 APTT 31.5 Seconds (25.1-36.5) 12/19/17 22:05 - Constitutional Appears: Non-toxic, No Acute Distress - Eye Exam Eye Exam: EOMI, PERRL - ENT Exam ENT Exam: Mucous Membranes Moist - Respiratory Exam Respiratory Exam: Clear to Ausculation Bilateral. absent: Rales, Rhonchi, Wheezes - Cardiovascular Exam Cardiovascular Exam: RRR, +S1, +S2 - GI/Abdominal Exam GI & Abdominal Exam: Soft, Normal Bowel Sounds. absent: Distended, Firm, Guarding, Rigid, Tenderness, Organomegaly - Extremities Exam Extremities Exam: Normal Inspection. absent: Pedal Edema - Neurological Exam Neurological Exam: Alert, Awake, Oriented x3 - Psychiatric Exam Psychiatric exam: Normal Affect, Normal Mood - Skin Skin Exam: Dry, Warm Assessment and Plan - Assessment and Plan (Free Text) Assessment: Patient is a 52yo female with PMHx significant for CKD, HTN, HLD, H/O PRES syndrome, anemia who presented to the ED with abnormal lab results, BUN 152. Our service was consulted for concern of possible occult GI hemorrhage. -CKD with worsening BUN -H. pylori infection -Anemia Plan: -S/P push enteroscopy without evidence for acute GI bleeding -Suspect anemia may be 2/2 ongoing renal dysfunction but patient would likely benefit from hematology consultation -Nephrology following - appreciate recs -Will arrange for outpatient follow up and video capsule endoscopy -Started patient on triple therapy for H pylori infection - renal dosing for CrCl 10-30: Amoxicillin 500mg PO BID, Clarithromycin 250mg PO BID and Omeprazole 20mg PO BID for two weeks -No further planned interventions at this juncture <Quintin,Kovil V - Last Filed: 12/24/17 00:10> Objective - Vital Signs/Intake and Output Vital Signs (last 24 hours): Temp Pulse Resp BP Pulse Ox 98.2 F 59 L 20 117/81 100 12/23/17 14:00 12/23/17 17:55 12/23/17 14:00 12/23/17 19:43 12/23/17 14:00 Intake and Output: 12/23/17 12/24/17 18:59 06:59 Intake Total 620 Balance 620 - Medications Medications: Current Medications Amoxicillin (Amoxil 500 Mg Cap) 500 mg PO BID [facility] PRN Reason: Protocol Stop: 01/06/18 18:01 Aspirin (Ecotrin) 81 mg PO DAILY [facility] Last Admin: 12/23/17 11:27 Dose: 81 mg Calcium Acetate (Phoslo) 1,334 mg PO WM [facility] Last Admin: 12/23/17 17:56 Dose: 1,334 mg Carvedilol (Coreg) 3.125 mg PO BID [facility] Last Admin: 12/23/17 19:43 Dose: 3.125 mg Clarithromycin (Biaxin Filmtab) 250 mg PO BID [facility] PRN Reason: Protocol Stop: 01/06/18 18:01 Clonidine HCl (Catapres) 0.1 mg PO TID [facility] Last Admin: 12/23/17 17:55 Dose: Not Given Ergocalciferol (Drisdol 50,000 Intl Units Cap) 1 cap PO Q7D [facility] Last Admin: 12/20/17 14:23 Dose: 1 cap Ferrous Sulfate (Feosol) 324 mg PO DAILY [facility] Last Admin: 12/23/17 11:27 Dose: 324 mg Hydralazine HCl (Apresoline) 50 mg PO TID [facility] Last Admin: 12/23/17 17:55 Dose: Not Given Minoxidil (Minoxidil) 10 mg PO BID [facility] Last Admin: 12/21/17 18:00 Dose: Not Given Nifedipine (Procardia Xl) 30 mg PO BID [facility] Last Admin: 12/21/17 20:17 Dose: Not Given Pantoprazole Sodium (Protonix Ec Tab) 20 mg PO 0600,1600 [facility] Stop: 01/05/18 16:01 Last Admin: 12/23/17 17:59 Dose: 20 mg Sodium Bicarbonate (Sodium Bicarbonate Tab) 650 mg PO BID [facility] Last Admin: 12/23/17 19:42 Dose: 650 mg Spironolactone (Aldactone) 25 mg PO BID [facility] Torsemide (Demadex) 20 mg PO BID [facility] - Labs Labs: 12/23/17 07:00 12/23/17 07:00 PT 12.4 SECONDS (9.4-12.5) 12/19/17 22:05 INR 1.09 (0.93-1.08) H 12/19/17 22:05 APTT 31.5 Seconds (25.1-36.5) 12/19/17 22:05 Attending/Attestation - Attestation I have personally seen and examined this patient.: Yes I have fully participated in the care of the patient.: Yes I have reviewed all pertinent clinical information, including history, physical exam and plan: Yes Notes (Text): This is an addendum to GI progress report dictated by the GI Fellow.The patient was seen and examined earlier. Medical records, lab studies, imagings were reviewed. Last 24 hours events reviewed. Agreed with the above treatment plan as outlined in GI Fellow 's notes the with the addition of the following 12/24/17 00:10
[2017-12-23 12:28] LABS: URINE CREATININE 51.7 mg/dL
--- NOTE | 2017-12-23 15:11 | PN ---
DATE: 12/23/2017 REASON FOR CONSULTATION AND FOLLOWUP: Cardiac evaluation, renal failure, hypertension, and cardiomyopathy. SUBJECTIVE: The patient denies any chest pain, shortness of breath, or any palpitation. OBJECTIVE: GENERAL: Not in apparent distress. VITAL SIGNS: Temperature afebrile, heart rate 77, and blood pressure 124/67. HEENT: PERRLA. Extraocular muscles intact. NECK: Supple. No carotid bruits or thyromegaly. CHEST: Clear to auscultation. HEART: S1 and S2, regular. ABDOMEN: Soft. EXTREMITIES: Clubbing and cyanosis negative. LABORATORY DATA: Blood workup as follows: WBC 14, hemoglobin 9.2, hematocrit 25, and platelet count 169. Chemistry shows sodium 130, potassium 3.3, chloride 99, carbon dioxide 23, anion gap of 17. BUN of 119, creatinine 3.8. TSH 2.49. IMPRESSION: A 52-year-old female with past medical history significant for renal insufficiency, stage V chronic kidney disease, status post right arm fistula; uncontrolled hypertension. Previous cardiac workup: Stress test on 02/03/2017, negative for ischemia, ejection fraction 62%. The patient had an echo on 09/12/2016, that shows left ventricular ejection fraction of 35% to 40%, right ventricular systolic pressure of 33, mild mitral regurgitation, mild tricuspid regurgitation, trace pulmonary insufficiency, trace aortic regurgitation dated 09/13/2016. The patient went for an endoscopy, did her hemoglobin and hematocrit, seen by Dr. Rosen and concerned of elevated BUN and the patient was on 8 medications after the arteriovenous fistula was formed 2 months ago in the right arm. The blood pressure significantly decreased, concerned about high output failure. Recent MUGA scan shows significant preserved left ventricular function. Previous echo did not show any significant tricuspid regurgitation, so we did echo to rule out significant tricuspid regurgitation and high output failure, because recent MUGA scan showed the ejection fraction 83%. We will also decrease antihypertensive medication to prevent going in to hypotension. We will cut down the Coreg to 3.125 mg b.i.d. starting from 6 p.m. and also decrease the hydralazine dose accordingly. We will hold spironolactone. The last stress test as mentioned on 02/03/2017, showed no significant ischemia. Ejection fraction is 62%. We will follow with you. As mentioned above, we will cut down the hydralazine also to 50 t.i.d. with holding parameters. We will give 20 of K-dur one time. Thank you Dr. Laureano, for providing us the opportunity in taking care of patient, Jessica Jarrett. We will follow the result of her stress test. Kristine Alejandre MD
[2017-12-23 16:18] VITALS: TEMP 98.2
--- NOTE | 2017-12-23 17:24 | CARD ---
APPROVED REPORT EXAM: Two-dimensional and M-mode echocardiogram with Doppler and color Doppler. INDICATION CMP/LVFX 2D DIMENSIONS Left Atrium (2D)5.1 (1.6-4.0cm)IVSd1.3 (0.7-1.1cm) LVDd5.0 (3.9-5.9cm)PWd1.5 (0.7-1.1cm) LVDs3.3 (2.5-4.0cm)FS (%) 32.7 % LVEF (%)60.9 (>50%) M-Mode DIMENSIONS Aortic Root3.20 (2.2-3.7cm)Aortic Cusp Exc.2.00 (1.5-2.0cm) Aortic Valve AoV Peak Rdbsmobs250.0cm/sAoV VTI46.8cmAO Peak GR.18mmHg AO Mean GR.9mmHg Mitral Valve MV E Kgmhphbc084.0cm/sMV A Fpodufiw51.7cm/sE/A ratio1.1 TDI Lateral E' Peak V7.02cm/sMedial E' Peak V5.95cm/sE/Lateral E'14.2 E/Medial E'16.8 Pulmonary Valve PV Peak Xthjuhax75.8cm/sPV Peak Grad.3mmHg Tricuspid Valve TR Peak Ghtgsrje366xt/sRAP PRRNLUHK46gmAlYZ Peak Gr.49mmHg CYAE94kfAx LEFT VENTRICLE The left ventricle is normal size. There is mild to moderate concentric left ventricular hypertrophy. The left ventricular function is normal.EF-55-60% There is normal LV segmental wall motion. The left ventricular diastolic function is normal. No left ventricle thrombus noted on this study. There is no ventricular septal defect visualized. There is no left ventricular aneurysm. There is no mass noted in the left ventricle. RIGHT VENTRICLE The right ventricle is normal size. The right ventricle is mildly to moderately hypertrophied. The right ventricular systolic function is normal. ATRIA The left atrium is mildly dilated. The right atrium is borderline dilated. The interatrial septum is intact with no evidence for an atrial septal defect. AORTIC VALVE The aortic valve is mildly thickened but opens well. There is trace aortic regurgitation. There is no aortic valvular stenosis. There is no aortic valvular vegetation. MITRAL VALVE The mitral valve is thickened but opens well. Mitral regurgitation is mild . There is no mitral valve stenosis. There is no evidence of mitral valve prolapse. TRICUSPID VALVE The tricuspid valve leaflets are thickened , but open well. There is mild to moderate tricuspid regurgitation.RVSP-59 mmof hg. There is mild to moderate pulmonary hypertension. There is no tricuspid valve stenosis. There is no tricuspid valve prolapse or vegetation. PULMONIC VALVE The pulmonary valve is normal in structure. There is trace pulmonic valvular regurgitation. There is no pulmonic valvular stenosis. GREAT VESSELS The aortic root is normal in size. The ascending aorta is normal in size. The pulmonary artery is normal. The IVC is normal in size and collapses >50% with inspiration. PERICARDIAL EFFUSION There is no pleural effusion. There is no pericardial effusion. <Conclusion> The left ventricle is normal size. There is mild to moderate concentric left ventricular hypertrophy. The left ventricular function is normal.EF-55-60% The right ventricle is normal size. There is trace aortic regurgitation. Mitral regurgitation is mild . There is mild to moderate tricuspid regurgitation.RVSP-59 mmof hg. There is mild to moderate pulmonary hypertension. The IVC is normal in size and collapses >50% with inspiration. There is no pericardial effusion.
[2017-12-24] MEDS: Pantoprazole 20 mg EC Tab PO SCH (05:30)
[2017-12-24 07:21] VITALS: BP 157/88; PULSE 63; RESP 16
[2017-12-24 08:01] LABS: BASO # 0.01 K/mm3 (0.0-2.0); BASO % 0.2 % (0.0-3.0); EOS # 0.1 (0.0-0.7); EOS % 3.1 % (1.5-5.0); GRAN # 2.73 (1.4-6.5); GRAN % 60.5 % (50.0-68.0); HEMOGLOBIN 9.9 g/dL (12.0-16.0); LYMPH # 1.2 (1.2-3.4); LYMPH % 27.3 % (22.0-35.0); MEAN CELL VOLUME 81.7 fl (80.0-105.0); MEAN CORPUSCULAR HEMOGLOBIN 29.6 pg (25.0-35.0); MEAN CORPUSCULAR HGB CONC 36.3 g/dl (31.0-37.0); MEAN PLATELET VOLUME 13.2 fl (7.0-11.0); MONO # 0.4 (0.1-0.6); MONO % 8.9 % (1.0-6.0); RBC 3.34 10^6/uL (3.5-6.1); RED CELL DISTRIBUTION WIDTH 12.6 % (11.5-14.5); WHITE BLOOD COUNT 4.5 10^3/ul (4.5-11.0)
[2017-12-24 08:24] LABS: ALB/GLOB RATIO 1.3 (1.1-1.8); ALBUMIN 4.1 g/dL (3.0-4.8)
[2017-12-24] MEDS ORDERED: Potassium Chloride 20 mEq ER Tab PO SCH (10:00)
--- NOTE | 2017-12-24 20:51 | DS ---
DATE OF DISCHARGE: 12/24/2017 DISCHARGE DIAGNOSES: 1. Chronic kidney disease, stage 5. 2. Azotemia. 3. Anemia of chronic kidney disease. 4. Congestive heart failure. 5. Uncontrolled hypertension. HOSPITAL COURSE: The patient was admitted with azotemia and chronic kidney disease, stage 4, creatinine was elevated to 4.8, it gradually declined to 3.4. Blood pressure was controlled during hospitalization. Cardiology consult was with Dr. Alejandre, requested medications, cardiac medications were adjusted as per renal dosing and elevated blood pressure. Blood pressure improved during hospitalization. She was also evaluated by Hematology, myself. She received a dose of Aranesp 100 mg subcutaneously for anemia related to chronic kidney disease, iron studies were normal during hospitalization. She is being discharged in stable condition. She is being prepared for hemodialysis. She is scheduled for revision of AV fistula next week. PHYSICAL EXAMINATION: GENERAL: On discharge, comfortable in bed, in no acute distress. VITAL SIGNS: Temperature 98.2, heart rate 63 per minute, blood pressure 157/88, respiratory rate 16 per minute, oxygen saturation 100% on room air. HEENT: Pallor positive. NECK: No lymphadenopathy. CHEST: Air entry present and equal bilateral. No added sounds. CARDIOVASCULAR: S1, S2 normal. No murmur. No gallop. ABDOMEN: Soft, nontender. No hepatosplenomegaly. EXTREMITIES: No edema. CENTRAL NERVOUS SYSTEM: Alert and oriented x3. No focal sensory or motor deficit. Spine nontender. SKIN: No petechiae. No rash. DISCHARGE MEDICATIONS: Aspirin 81 mg daily, PhosLo 1334 mg twice a week, Coreg 3.125 mg b.i.d., minoxidil 10 mg p.o. b.i.d., nifedipine 30 mg p.o. b.i.d., Protonix 20 mg p.o. b.i.d., spironolactone 25 mg p.o. b.i.d., and torsemide 20 mg p.o. b.i.d. Follow up with Dr. Laureano in one week. Follow up with Dr. Ba in one week. Follow up with Dr. Rosen in one week. DIET: Consists renal diet. CONDITION ON DISCHARGE: Stable. DISPOSITION: Discharge home. Discussed with the daughter. Discussed with the staff nurse. Time spent interviewing, discharge, and coordinating care 55 minutes. Teodora Ba MD
== END 2017-12-24 13:37 | disposition home or self-care (01) | DRG 682 ==
LOC: ED 20:53 → ERH 12-20 00:07 → 5RSO 12-20 02:07 → OBSVTOIN 12-21 12:41
PROVIDERS: ADMIT Internal Medicine; ATTEND Internal Medicine
PROC: 0DJ08ZZ Inspection of Upper Intestinal Tract, Via Natural or Artificial Opening Endoscopic (ICD-10-PCS; principal; 2017-12-20 10:30)
DX: N17.9 Acute kidney failure, unspecified (principal); I67.83 Posterior reversible encephalopathy syndrome; I13.2 Hypertensive heart and chronic kidney disease with heart failure and with stage 5 chronic kidney disease, or end stage renal disease; I42.9 Cardiomyopathy, unspecified; N18.6 End stage renal disease; I50.83 High output heart failure; E86.0 Dehydration; D63.1 Anemia in chronic kidney disease; E78.5 Hyperlipidemia, unspecified; K29.50 Unspecified chronic gastritis without bleeding; E87.6 Hypokalemia; H40.9 Unspecified glaucoma; D57.3 Sickle-cell trait; I08.1 Rheumatic disorders of both mitral and tricuspid valves; E78.00 Pure hypercholesterolemia, unspecified; H54.7 Unspecified visual loss; E83.39 Other disorders of phosphorus metabolism; Z79.02 Long term (current) use of antithrombotics/antiplatelets; Z87.891 Personal history of nicotine dependence; Z82.49 Family history of ischemic heart disease and other diseases of the circulatory system; Z83.3 Family history of diabetes mellitus

== ENCOUNTER 2018-02-06 06:09 | Day surgery (SDC) | payer BC ==
[2018-01-27 10:21] VITALS: BMI 23.1
--- NOTE | 2018-02-04 04:39 | HP ---
Copied To: Kristine Alejandre MD Attending MD: Kristine Alejandre MD REASON FOR ADMISSION: Right heart cath for preoperative evaluation for kidney transplant. BRIEF CLINICAL HISTORY: This is a 52-year-old female with a past medical history significant for hypertension, mitral regurgitation, tricuspid regurgitation, hyperlipidemia, hypertension, being evaluated for kidney transplant. The patient referred from ambulatory cardiology from [facility], organ transplant center, for right heart catheterization for preop kidney transplantation. The patient denies any chest pain or shortness of breath, or any palpitations. PAST MEDICAL HISTORY: Significant for hypertension, hyperlipidemia, renal insufficiency, moderate pulmonary hypertension, anemia. RECENT CARDIAC WORKUP: As follows, the patient had stress test dated 02/03/2018 that shows a normal wall motion, normal LV function, normal myocardial perfusion scan, dated 02/03/2018. The patient had echocardiography done in the [facility] on 12/22/2017 that showed ejection fraction of 55% to 60%, right ventricle within normal, trace aortic regurgitation, mild mitral regurgitation, mild to moderate tricuspid regurgitation, RV systolic pressure 59, mild to moderate pulmonary hypertension. SOCIAL HISTORY: Denies any smoking. Denies any history of alcohol abuse. CURRENT MEDICATIONS: The patient is taking hydralazine 100 mg p.o three times a day, clonidine 0.3 mg three times a day, sodium bicarbonate tablet, ferrous sulfate, atorvastatin 20 mg daily, minoxidil 5 mg daily in the morning, vitamin D. ALLERGIES: STRING GANDARA. NO KNOWN DRUG ALLERGIES. REVIEW OF SYSTEMS: As per HPI. PHYSICAL EXAMINATION: GENERAL: Height of the patient is 5 feet 4 inches, weight of the patient is 135 pounds, body mass index 23.2 kg/ m2. HEENT: PERRLA. Extraocular muscles intact. NECK: Supple. No carotid bruits or thyromegaly. CHEST: Clear to auscultation. HEART: S1 and S2, regular. ABDOMEN: Soft. EXTREMITIES: Clubbing and cyanosis negative. LABORATORY DATA: Blood workup pending. IMPRESSION AND PLAN: A 52-year-old female with past medical history significant for renal insufficiency, hypertension, hyperlipidemia, being evaluated for renal transplant and referred from [facility] for right heart catheterization. We will review the blood workup when available, and we will proceed for cardiac catheterization if blood workup is within normal limit. Risk, benefits and alternatives discussed with the patient. The patient agrees. We will proceed for right heart catheterization. Thank you, Dr. Cleary for providing us the opportunity in taking care of the patient, Jessica Jarrett. Kristine Alejandre MD cc: Dr. Cleary.
[2018-02-06] MEDS ORDERED: Lidocaine PF 2% (5 ml) Inj (For Cardiac Arrhy) ONE (06:50)
[2018-02-06] MEDS ORDERED: Iohexol 350mgl/ml 50 ML ONE (06:50)
[2018-02-06] MEDS ORDERED: Iodixanol 320 MG/ML 200 ML BOTTLE IV ONE (06:51)
[2018-02-06] MEDS ORDERED: Iodixanol 320 MG/ML 100 ML BOTTLE IV ONE (06:51)
[2018-02-06] MEDS ORDERED: Phenylephrine 10 mg/ml Inj ONE (06:52)
[2018-02-06 07:08] LABS: BASO # 0.03 K/mm3 (0.0-2.0); BASO % 0.6 % (0.0-3.0); EOS # 0.3 (0.0-0.7); EOS % 5.7 % (1.5-5.0); GRAN # 2.56 (1.4-6.5); GRAN % 54.5 % (50.0-68.0); HEMOGLOBIN 11.5 g/dL (12.0-16.0); LYMPH # 1.1 (1.2-3.4); LYMPH % 23.2 % (22.0-35.0); MEAN CELL VOLUME 83.5 fl (80.0-105.0); MEAN CORPUSCULAR HEMOGLOBIN 29.6 pg (25.0-35.0); MEAN CORPUSCULAR HGB CONC 35.5 g/dl (31.0-37.0); MEAN PLATELET VOLUME 11.9 fl (7.0-11.0); MONO # 0.8 (0.1-0.6); RBC 3.88 10^6/uL (3.5-6.1); RED CELL DISTRIBUTION WIDTH 13.4 % (11.5-14.5); WHITE BLOOD COUNT 4.7 10^3/ul (4.5-11.0)
[2018-02-06 07:16] LABS: PARTIAL THROMBOPLASTIN TIME 34.7 Seconds (25.1-36.5); PROTHROMBIN TIME 11.5 SECONDS (9.4-12.5)
[2018-02-06 07:18] LABS: CALCIUM 9.1 mg/dL (8.4-10.5)
[2018-02-06] MEDS ORDERED: Midazolam 2 MG/2 ML VIAL ONE (07:42)
[2018-02-06] MEDS ORDERED: Sodium Chloride 0.45% 1,000 ML IV SCH (08:45)
--- NOTE | 2018-02-06 09:04 | CPOSTOP ---
Copied To: Kristine Alejandre MD Attending MD: Kristine Alejandre MD DATE: 02/06/2018 CARDIOVASCULAR LAB POST PROCEDURE NOTE DICTATING PHYSICIAN: Kristine Alejandre MD. BILINGUAL ACCOUNT MANAGER: Ted Cuellar fuel retrofitting technician. TYPE OF ANESTHESIA: Moderate conscious sedation, total dose of 1 mg of Versed, 50 of fentanyl. PRE-PROCEDURE DIAGNOSES: Rule out pulmonary hypertension, preoperative for renal transplant. PROCEDURE PERFORMED: Right heart catheterization. FINDINGS: Upper limit normal to mildly elevated pulmonary pressure. FINAL DIAGNOSIS: Upper limit normal right heart catheterization. POST PROCEDURE CONDITION: Post procedure, the patient's condition is stable. VASCULAR ACCESS SITE: Right femoral vein. CLOSURE DEVICE: Mynx. TOTAL RADIATION DOSE: 234.05 milligray unit. TOTAL FLUORO TIME: 0.6 minute. Kristine Alejandre MD
[2018-02-06 09:11] VITALS: TEMP 97.8
[2018-02-06 09:14] VITALS: O2SAT 99
[2018-02-06 10:00] VITALS: RESP 20
[2018-02-06] MEDS ORDERED: Cholecalciferol 1,000 INTLU TAB PO SCH (10:00)
[2018-02-06 13:40] VITALS: BP 126/74; PULSE 68
--- NOTE | 2018-02-06 16:26 | CARD ---
APPROVED REPORT Date of service: 02/06/2018 Procedure(s) performed: Right Heart Catheterization HISTORY The patient is a 52 year-old female with a history of : previous OR (> 7 days), most recent EF: 60.9%. (EF Method: Echocardiogram), previous CHF, renal failure without dialysis, tobacco history() : The patient is a former smoker , hypertension , dyslipidemia , Pre-op for renal Tx as required by renal transplant center.. CASE TECHNIQUE The patient was brought electively to the Cardiac Catheterization Laboratory in a fasting state and was prepped and draped in a sterile manner. The right femoral groin was infiltrated with 2% Lidocaine subcutaneous anesthesia. A 7 Fr x 11 cm Rafia sheath was inserted into the right femoral vein without difficulty. Coronary angiography was performed using coronary diagnostic catheters. The patient tolerated the procedure well and there were no complications associated with the procedure. Right Heart Cath Findings The Right Atrial Pressure is 6 mmHg. The Right Ventricular Pressure is 40/6 mmHg. The Pulmonary Artery Pressure is 38/10 mmHg. with a meanof 22 The Pulmonary Catheter Wedge Pressure is 12-13 mmHg. PVR 1.6 Wood units. The cardiac output and index were assessed using thermo dilution. The Cardiac Output is 6.30 L/min. The Cardiac index is 3.80 L/min/m2. Conclusion RHC:RA-6,RV-40/6, PA-38/10 with a mean of22, PCW-12-13,CO,6.3 lit/min and CI-3.8, PVR-1.6 Wood unit Upper limit Normal to Mildly elevated PA, but with Normal PVR. Recommendations CC; Dr. Cleary
--- NOTE | 2018-02-06 21:29 | CARD ---
APPROVED REPORT Date of service: 02/06/2018 EKG Measurement Heart [id number] <Conclusion> Normal sinus rhythm Anteroseptal infarct, age undetermined T wave abnormality, consider inferolateral ischemia Abnormal ECG
== END 2018-02-06 13:15 | disposition home or self-care (01) ==
LOC: CATH 06:09
PROVIDERS: ATTEND Internal Medicine Cardiovascular Disease
DX: Z01.810 Encounter for preprocedural cardiovascular examination (principal); I13.10 Hypertensive heart and chronic kidney disease without heart failure, with stage 1 through stage 4 chronic kidney disease, or unspecified chronic kidney disease; N18.9 Chronic kidney disease, unspecified; I50.9 Heart failure, unspecified; I08.1 Rheumatic disorders of both mitral and tricuspid valves; E78.5 Hyperlipidemia, unspecified; I25.2 Old myocardial infarction; Z87.891 Personal history of nicotine dependence
CPT/HCPCS: 36415; 80048; 80061; 84703; 85025; 85610; 85730; 86850; 86900; 93005; 93451; 99152; C1760; C1894; J1644; J2250; J3010; J7030; J7040; Q9966

== ENCOUNTER 2018-03-18 10:00 | Emergency (ER) | payer BC ==
[2018-03-18 10:00] VITALS: BMI 23.1
[2018-03-18 10:27] VITALS: RESP 16
--- NOTE | 2018-03-18 10:46 | ED PDOC ---
Arrival/HPI - General Chief Complaint: Vascular Access Device Problem Time Seen by Provider: 03/18/18 10:27 Historian: Patient - History of Present Illness Time/Duration: Prior to Arrival Associated Symptoms (Text): 03/18/18 10:43 Patient reports that she had a right upper arm AV fistula placed approximately 1 month ago in preparation for dialysis. She believes that the wound is infected. There is no wound infection, but rather some minimal wound dehiscence. Patient was instructed that she needs to follow-up with the surgeon who placed it. She also reports that she has run out of her blood pressure medication including clonidine 0.3 mg torsemide 20 mg and hydralazine 100 mg. She will get be given refills to get her through the weekend. Past Medical History - Infectious Disease Hx of Infectious Diseases: None - Reproductive Menopause: Yes - Cardiac Hx Cardiac Disorders: Yes Hx Hypertension: Yes - Pulmonary Hx Respiratory Disorders: Yes (SMOKED CIGARETTES QUIT.) - Neurological Hx Neurological Disorder: No - HEENT Hx HEENT Disorder: Yes Hx Blind: Yes Hx Cataracts: Yes Hx Glaucoma: Yes Other/Comment: LEFT EYE SURGERY - Renal Hx Renal Disorder: Yes Hx Renal Failure: Yes - Endocrine/Metabolic Hx Endocrine Disorders: Yes - Hematological/Oncological Hx Blood Disorders: Yes Hx Blood Transfusions: Yes Hx Blood Transfusion Reaction: No - Integumentary Hx Dermatological Disorder: No - Musculoskeletal/Rheumatological Hx Musculoskeletal Disorders: Yes - Gastrointestinal Hx Gastrointestinal Disorders: Yes (CONSTIPATION) - Genitourinary/Gynecological Hx Genitourinary Disorders: No - Psychiatric Hx Psychophysiologic Disorder: No Hx Substance Use: No - Surgical History Hx Section: Yes Hx Vascular Surgery: Yes - Anesthesia Hx Anesthesia Reactions: No Hx Malignant Hyperthermia: No - Suicidal Assessment Feels Threatened In Home Enviroment: No Family/Social History - Physician Review Nursing Documentation Reviewed: Yes Family/Social History: Unknown Family HX Smoking Status: Former Smoker Hx Alcohol Use: No (QUIT 08/2016) Hx Substance Use: No Hx Substance Use Treatment: No Allergies/Home Meds Allergies/Adverse Reactions: Allergies STRINGBEANS Allergy (Mild, Uncoded 03/18/18 10:05) HIVES Home Medications: Home Meds Medication Instructions Recorded Confirmed Sodium Bicarbonate Tab 650 mg PO DAILY 12/01/16 03/18/18 cloNIDine [Catapres] 0.3 mg PO TID 12/01/16 03/18/18 Atorvastatin [Lipitor] 20 mg PO DAILY 07/22/17 03/18/18 Ferrous Sulfate [Feosol] 325 mg PO DAILY 07/22/17 03/18/18 Cholecalciferol [Vitamin D] 1,000 iu PO DAILY 01/27/18 03/18/18 Minoxidil [Loniten] 5 mg PO QAM 01/27/18 03/18/18 hydrALAZINE [Apresoline] 100 mg PO TID 01/27/18 03/18/18 Carvedilol [Coreg] 12.5 mg PO BID 03/18/18 03/18/18 oxyCODONE/Acetaminophen [Percocet 1 tab PO PRN PRN 03/18/18 03/18/18 5/325 mg Tab] Review of Systems - Physician Review All systems were reviewed & negative as marked: Yes - Review of Systems Constitutional: Normal Respiratory: Normal Cardiovascular: Normal Gastrointestinal: Normal Neurological: Normal Physical Exam Vital Signs Temp Pulse Resp BP Pulse Ox 03/18/18 10:08 98.7 F 69 16 217/116 H 99 Temperature: Afebrile Blood Pressure: Hypertensive Pulse: Regular Respiratory Rate: Normal Appearance: Positive for: Well-Appearing, Non-Toxic, Comfortable Pain Distress: None Mental Status: Positive for: Alert and Oriented X 3 - Systems Exam Respiratory/Chest: Present: Clear to Auscultation, Good Air Exchange. No: Respiratory Distress, Accessory Muscle Use Cardiovascular: Present: Regular Rate and Rhythm, Normal S1, S2. No: Murmurs Upper Extremity: Present: Normal ROM, NORMAL PULSES, Neurovascularly Intact, Other (Right upper arm wound with minimal dehiscence and no drainage no erythema no warmth no tenderness and no signs of infection. Good thrill is palpated.). No: Edema, Tenderness, Swelling, Erythema, Deformity Skin: Present: Warm, Dry, Normal Color. No: Rashes Disposition/Present on Arrival - Present on Arrival Any Indicators Present on Arrival: No History of DVT/PE: No History of Uncontrolled Diabetes: No Urinary Catheter: No History of Decub. Ulcer: No History Surgical Site Infection Following: None - Disposition Have Diagnosis and Disposition been Completed?: Yes Diagnosis: CKD (chronic kidney disease) stage 5, GFR less than 15 ml/min, Resistant hypertension, Wound dehiscence Disposition: HOME/ ROUTINE Disposition Time: 10:47 Patient Plan: Discharge Condition: FAIR Discharge Instructions (ExitCare): High Blood Pressure in Adults, Kidney Failure, Wound Dehiscence Additional Instructions: Must follow-up with her surgeon for wound evaluation. Must follow-up with your PMD for your chronic antihypertensive medications. Prescriptions: hydrALAZINE [Apresoline] 100 mg PO Q8 #10 tab cloNIDine [Catapres] 0.3 mg PO Q8 #10 tab Torsemide 20 mg PO Q12 #6 tablet Forms: [facility] (Gabonese)
[2018-03-18 11:05] VITALS: BP 200/115; PULSE 70; TEMP 98.4; O2SAT 98
== END 2018-03-18 11:04 | disposition home or self-care (01) ==
LOC: ED 10:00
DX: T81.30XA Disruption of wound, unspecified, initial encounter (principal); Y84.8 Other medical procedures as the cause of abnormal reaction of the patient, or of later complication, without mention of misadventure at the time of the procedure; Y92.89 Other specified places as the place of occurrence of the external cause; I12.0 Hypertensive chronic kidney disease with stage 5 chronic kidney disease or end stage renal disease; N18.5 Chronic kidney disease, stage 5; Z87.891 Personal history of nicotine dependence

== ENCOUNTER 2018-06-23 15:10 | Outpatient (CLI) | payer BC | END 2018-06-23 15:11 | disposition home or self-care (01) | LOC: RAD 15:10 ==

== ENCOUNTER 2018-08-26 10:05 | Outpatient (CLI) | payer BC | END 2018-08-26 10:06 | disposition home or self-care (01) | LOC: LAB 10:05 ==

== ENCOUNTER 2018-10-19 16:41 | Outpatient (CLI) | payer BC | END 2018-10-19 16:42 | disposition home or self-care (01) | LOC: LAB 16:41 ==